=== PATIENT | male | born 1965 | race American Indian/Alaskan Native ===

== ENCOUNTER 2017-03-22 09:09 | Outpatient (CLI) | payer MEDICARE ==
--- NOTE | 2017-03-22 10:12 | XRay Report ---
Cervical spine: Anterior spinal artery compression syndrome: AP and lateral views demonstrate C3-4 and C4-5 cervical fusions with anterior stabilizing hardware and spacers at both locations. The hardware appears in good positions. There is normal alignment of the cervical bodies and good preservation of the interspaces. There is anterior spondylosis and at the inferior margins of C3-C5 as well as superior and inferior spondylosis at C6. No prevertebral swelling. Impression: Postoperative changes with no apparent complication. Diffuse spondylosis.
== END 2017-03-22 09:10 | disposition home or self-care (01) ==
LOC: XRAY 09:09
PROVIDERS: ATTEND Neurological Surgery
DX: M47.012 Anterior spinal artery compression syndromes, cervical region (principal); I10 Essential (primary) hypertension; Z87.891 Personal history of nicotine dependence
CPT/HCPCS: 72040

== ENCOUNTER 2017-06-11 14:14 | Emergency (ER) | payer MEDICARE ==
[2017-06-11 14:20] VITALS: BP 138/96
--- NOTE | 2017-06-11 15:03 | Emergency Department Report ---
- General Chief complaint: Skin Rash Stated complaint: BREAKING OUT Time Seen by Provider: 06/11/17 15:00 Source: patient Mode of arrival: Ambulatory Limitations: No Limitations - History of Present Illness Initial comments: 51 y/o M presents with a diffuse rash all over the body. Pt states that he noticed it 2 weeks ago, shortly after he was discharged from [facility]. Pt reports to itching and spreading of the rash. He denies any fever, chills, chest pain, SOB, or resp distress. No new soap, detergents, or deodrants per patient. Pt states that he was seen by his PCP about 1 week ago and they gave him a steriod cream that has not been helping. MD complaint: rash -: Gradual, week(s) (2) Location: generalized Severity: severe Severity scale (0 -10): 8 Quality: burning (iching) Improves with: topical medication (prednisone only help temporary) Worsens with: none (recent hospital stay) Associated symptoms: denies other symptoms Treatments Prior to Arrival: corticosteroid - Related Data Previous Rx's Medication Instructions Recorded Last Taken Type Acetaminophen [Acetaminophen TAB] 650 mg PO Q4H PRN #30 tablet 02/15/17 Unknown Rx AtorvaSTATin [Lipitor] 20 mg PO QHS tablet 02/15/17 Unknown Rx Bisacodyl [Dulcolax suppos] 10 mg LA QDAY PRN #30 supp.rect 02/15/17 Unknown Rx Cipro/Dexameth 0.3/0.1% [Ciprodex 4 drops AU BID bottle 02/15/17 Unknown Rx OTIC] Dexamethasone [Decadron] 6 mg IV Q6HR vial 02/15/17 Unknown Rx Dextrose 50% in Water [D50W (25GM) 50 ml IV PRN PRN #30 syringe 02/15/17 Unknown Rx Syringe] Enoxaparin [Lovenox] 40 mg SUB-Q QDAY syringe 02/15/17 Unknown Rx Insulin Detemir [Levemir] 100 units SUB-Q QHS units 02/15/17 Unknown Rx Lipase/Protease/Amylase [Pancreaze 1 each FEEDTUBE PRN PRN #30 capsule 02/15/[address] 10,500 Unit] Metoprolol [Lopressor TAB] 25 mg PO BID tablet 02/15/17 Unknown Rx Metoprolol [Lopressor TAB] 25 mg PO BID #60 tablet 02/15/17 Unknown Rx Ondansetron [Zofran INJ] 4 mg IV Q8H PRN #30 vial 02/15/17 Unknown Rx Prednisone [predniSONE 5 mg (6-Day 5 mg PO .TAPER #1 tab.ds.pk 02/15/17 Unknown Rx Pack, 21 Tabs)] Simple Syrup 15 ml FEEDTUBE PRN PRN #30 02/15/17 Unknown Rx oral.liqd Simple Syrup 30 ml FEEDTUBE PRN PRN #30 02/15/17 Unknown Rx oral.liqd Sodium Bicarbonate 325 mg FEEDTUBE PRN PRN #30 tablet 02/15/17 Unknown Rx amLODIPine [Norvasc] 10 mg PO DAILY tablet 02/15/17 Unknown Rx amLODIPine [Norvasc] 10 mg PO DAILY #30 tab 02/15/17 Unknown Rx chlorproMAZINE [Thorazine] 10 mg PO Q6H PRN #30 tablet 02/15/17 Unknown Rx hydrALAZINE [Apresoline INJ] 10 mg IV Q6HR PRN #30 vial 02/15/17 Unknown Rx oxyCODONE /ACETAMINOPHEN [Percocet 1 tab PO Q4H PRN #30 tablet 02/15/17 Unknown Rx 5/325 mg] oxyCODONE /ACETAMINOPHEN [Percocet 1 tab PO Q4HR #30 tab 02/15/17 Unknown Rx 5/325] tiZANidine [Zanaflex] 4 mg PO Q8H PRN #30 tablet 02/15/17 Unknown Rx Permethrin 5% [Acticin 5% CREAM] 1 applicatio TP ONCE #1 tube 06/11/17 Unknown Rx Allergies Allergy/AdvReac Type Severity Reaction Status Date / Time lisinopril Allergy Angioedema Verified 05/11/15 11:29 Abscess Boil HPI - HPI Chief Complaint: Skin Rash Stated Complaint: BREAKING OUT Duration: >1 Week Location: Lower Extremity History: No Fever, No Pain, No Purulent Drainage, No Numbness, No Foreign Body, No Previous History, No Insect Bite Home Medications: Previous Rx's Medication Instructions Recorded Last Taken Type Acetaminophen [Acetaminophen TAB] 650 mg PO Q4H PRN #30 tablet 02/15/17 Unknown Rx AtorvaSTATin [Lipitor] 20 mg PO QHS tablet 02/15/17 Unknown Rx Bisacodyl [Dulcolax suppos] 10 mg LA QDAY PRN #30 supp.rect 02/15/17 Unknown Rx Cipro/Dexameth 0.3/0.1% [Ciprodex 4 drops AU BID bottle 02/15/17 Unknown Rx OTIC] Dexamethasone [Decadron] 6 mg IV Q6HR vial 02/15/17 Unknown Rx Dextrose 50% in Water [D50W (25GM) 50 ml IV PRN PRN #30 syringe 02/15/17 Unknown Rx Syringe] Enoxaparin [Lovenox] 40 mg SUB-Q QDAY syringe 02/15/17 Unknown Rx Insulin Detemir [Levemir] 100 units SUB-Q QHS units 02/15/17 Unknown Rx Lipase/Protease/Amylase [Pancreaze 1 each FEEDTUBE PRN PRN #30 capsule 02/15/[address] 10,500 Unit] Metoprolol [Lopressor TAB] 25 mg PO BID tablet 02/15/17 Unknown Rx Metoprolol [Lopressor TAB] 25 mg PO BID #60 tablet 02/15/17 Unknown Rx Ondansetron [Zofran INJ] 4 mg IV Q8H PRN #30 vial 02/15/17 Unknown Rx Prednisone [predniSONE 5 mg (6-Day 5 mg PO .TAPER #1 tab.ds.pk 02/15/17 Unknown Rx Pack, 21 Tabs)] Simple Syrup 15 ml FEEDTUBE PRN PRN #30 02/15/17 Unknown Rx oral.liqd Simple Syrup 30 ml FEEDTUBE PRN PRN #30 02/15/17 Unknown Rx oral.liqd Sodium Bicarbonate 325 mg FEEDTUBE PRN PRN #30 tablet 02/15/17 Unknown Rx amLODIPine [Norvasc] 10 mg PO DAILY tablet 02/15/17 Unknown Rx amLODIPine [Norvasc] 10 mg PO DAILY #30 tab 02/15/17 Unknown Rx chlorproMAZINE [Thorazine] 10 mg PO Q6H PRN #30 tablet 02/15/17 Unknown Rx hydrALAZINE [Apresoline INJ] 10 mg IV Q6HR PRN #30 vial 02/15/17 Unknown Rx oxyCODONE /ACETAMINOPHEN [Percocet 1 tab PO Q4H PRN #30 tablet 02/15/17 Unknown Rx 5/325 mg] oxyCODONE /ACETAMINOPHEN [Percocet 1 tab PO Q4HR #30 tab 02/15/17 Unknown Rx 5/325] tiZANidine [Zanaflex] 4 mg PO Q8H PRN #30 tablet 02/15/17 Unknown Rx Permethrin 5% [Acticin 5% CREAM] 1 applicatio TP ONCE #1 tube 06/11/17 Unknown Rx Allergies/Adverse Reactions: Allergies Allergy/AdvReac Type Severity Reaction Status Date / Time lisinopril Allergy Angioedema Verified 05/11/15 11:29 ED Review of Systems ROS: Stated complaint: BREAKING OUT Other details as noted in HPI Constitutional: denies: chills, fever Eyes: denies: eye pain, eye discharge, vision change ENT: denies: ear pain, throat pain Respiratory: denies: cough, shortness of breath, wheezing Cardiovascular: denies: chest pain, palpitations Musculoskeletal: denies: back pain, joint swelling, arthralgia Skin: rash, pruritus Neurological: denies: headache, weakness, paresthesias Psychiatric: denies: anxiety, depression Hematological/Lymphatic: denies: easy bleeding, easy bruising ED Past Medical Hx - Past Medical History Previous Medical History?: Yes Hx Hypertension: Yes Hx CVA: Yes Hx Heart Attack/AMI: No Hx Diabetes: Yes Hx Renal Disease: Yes (CKD) Hx Seizures: No Hx Asthma: No Hx COPD: No Additional medical history: high cholesterol - Surgical History Past Surgical History?: Yes Additional Surgical History: "hernia in throat", sounds like the patient has a hiatal hernia from his description there - Social History Smoking Status: Never Smoker Substance Use Type: None - Medications Home Medications: Home Medications Medication Instructions Recorded Confirmed Last Taken Type Acetaminophen [Acetaminophen TAB] 650 mg PO Q4H PRN #30 tablet 02/15/17 Unknown Rx AtorvaSTATin [Lipitor] 20 mg PO QHS tablet 02/15/17 Unknown Rx Bisacodyl [Dulcolax suppos] 10 mg LA QDAY PRN #30 supp.rect 02/15/17 Unknown Rx Cipro/Dexameth 0.3/0.1% [Ciprodex 4 drops AU BID bottle 02/15/17 Unknown Rx OTIC] Dexamethasone [Decadron] 6 mg IV Q6HR vial 02/15/17 Unknown Rx Dextrose 50% in Water [D50W (25GM) 50 ml IV PRN PRN #30 syringe 02/15/17 Unknown Rx Syringe] Enoxaparin [Lovenox] 40 mg SUB-Q QDAY syringe 02/15/17 Unknown Rx Insulin Detemir [Levemir] 100 units SUB-Q QHS units 02/15/17 Unknown Rx Lipase/Protease/Amylase [Pancreaze 1 each FEEDTUBE PRN PRN #30 capsule 02/15/17 Unknown Rx 10,500 Unit] Metoprolol [Lopressor TAB] 25 mg PO BID tablet 02/15/17 Unknown Rx Metoprolol [Lopressor TAB] 25 mg PO BID #60 tablet 02/15/17 Unknown Rx Ondansetron [Zofran INJ] 4 mg IV Q8H PRN #30 vial 02/15/17 Unknown Rx Prednisone [predniSONE 5 mg (6-Day 5 mg PO .TAPER #1 tab.ds.pk 02/15/17 Unknown Rx Pack, 21 Tabs)] Simple Syrup 15 ml FEEDTUBE PRN PRN #30 02/15/17 Unknown Rx oral.liqd Simple Syrup 30 ml FEEDTUBE PRN PRN #30 02/15/17 Unknown Rx oral.liqd Sodium Bicarbonate 325 mg FEEDTUBE PRN PRN #30 tablet 02/15/17 Unknown Rx amLODIPine [Norvasc] 10 mg PO DAILY tablet 02/15/17 Unknown Rx amLODIPine [Norvasc] 10 mg PO DAILY #30 tab 02/15/17 Unknown Rx chlorproMAZINE [Thorazine] 10 mg PO Q6H PRN #30 tablet 02/15/17 Unknown Rx hydrALAZINE [Apresoline INJ] 10 mg IV Q6HR PRN #30 vial 02/15/17 Unknown Rx oxyCODONE /ACETAMINOPHEN [Percocet 1 tab PO Q4H PRN #30 tablet 02/15/17 Unknown Rx 5/325 mg] oxyCODONE /ACETAMINOPHEN [Percocet 1 tab PO Q4HR #30 tab 02/15/17 Unknown Rx 5/325] tiZANidine [Zanaflex] 4 mg PO Q8H PRN #30 tablet 02/15/17 Unknown Rx Permethrin 5% [Acticin 5% CREAM] 1 applicatio TP ONCE #1 tube 06/11/17 Unknown Rx ED Physical Exam - General Limitations: No Limitations General appearance: alert, in no apparent distress - Head Head exam: Present: atraumatic, normocephalic - Eye Eye exam: Present: normal appearance - ENT ENT exam: Present: mucous membranes moist - Respiratory Respiratory exam: Present: normal lung sounds bilaterally. Absent: respiratory distress, wheezes, rales, rhonchi, stridor - Cardiovascular Cardiovascular Exam: Present: regular rate, normal rhythm. Absent: systolic murmur, diastolic murmur, rubs, gallop - Skin Skin exam: Present: warm, dry, urticaria (hyperpigmented areas with a scabies like rash noted at b/l LE, hands, and at the waist line). Absent: rash ED Course Vital Signs 06/11/17 14:17 Temperature 98.4 F Pulse Rate 70 Blood Pressure 138/96 O2 Sat by Pulse 100 Oximetry ED Medical Decision Making - Medical Decision Making A/P: SCABIES 1. pt will be given permetherin at home cream for the symptoms 2. pt was treated last week by PCP stating that it may be contact/ allergic dermatitis with no relief of the symptoms 3. Pt's vitals are stable during ED stay, alert and oriented, no resp distress at this time. Pt was educated to wash out clothing/ bed sheets and told that this is contagious. Critical care attestation.: If time is entered above; I have spent that time in minutes in the direct care of this critically ill patient, excluding procedure time. ED Disposition Clinical Impression: Scabies Disposition: DC-01 TO HOME OR SELFCARE Is pt being admited?: No Does the pt Need Aspirin: No Condition: Stable Instructions: Scabies (ED) Additional Instructions: Please apply the cream exactly as directed on your prescription. Please follow- up with your PCP within 3-5 days. If any acute worsening such as SOB, worsening symptoms, chest tightness, or diff breathing please come back to the ER immediately. Prescriptions: Permethrin 5% [Acticin 5% CREAM] 1 applicatio TP ONCE #1 tube Referrals: GILMA BURNETT MD [Staff Physician] - 3-5 Days [facility] [Outside] - 3-5 Days [facility] [Outside] - 3-5 Days Forms: Work/School Release Form(ED)
== END 2017-06-11 16:04 | disposition home or self-care (01) ==
LOC: ED 14:14
DX: B86 Scabies (principal); Z86.73 Personal history of transient ischemic attack (TIA), and cerebral infarction without residual deficits; E11.22 Type 2 diabetes mellitus with diabetic chronic kidney disease; I12.0 Hypertensive chronic kidney disease with stage 5 chronic kidney disease or end stage renal disease; N18.6 End stage renal disease; E78.00 Pure hypercholesterolemia, unspecified; Z88.8 Allergy status to other drugs, medicaments and biological substances
CPT/HCPCS: 99282

== ENCOUNTER 2018-11-22 19:04 | Emergency (ER) | payer MEDICARE ==
--- NOTE | 2018-11-22 21:14 | Emergency Department Report ---
Blank Doc - Documentation Documentation: 53 y/o c/o of cough and coryza for the last few days. no nausea or vomiting. D enies SOB plan cxr
--- NOTE | 2018-11-22 23:08 | XRay Report ---
FINAL REPORT PROCEDURE: Chest. TECHNIQUE: PA and lateral views. HISTORY: Cough and chest ache. COMPARISON: No prior studies are available for comparison. FINDINGS: The heart size is normal. There is mild tortuosity and calcification in the thoracic aorta. The lungs are clear and well expanded. There are no pleural effusions. The soft tissues and regional skeleton are unremarkable. IMPRESSION: No evidence of acute disease.
--- NOTE | 2018-11-23 01:11 | Emergency Department Report ---
- General Chief Complaint: Upper Respiratory Infection Stated Complaint: SORE ALL OVER Time Seen by Provider: 11/22/18 21:11 Source: patient Mode of arrival: Ambulatory Limitations: No Limitations - History of Present Illness Initial Comments: Patient is 53 years old male with history of diabetes. Patient presented to the ER complaining of cough, nonproductive. Patient stated that he been having generalized body ache. Patient denied any chest pain or shortness of breath. MD Complaint: fever, cough, nasal congestion -: days(s) (2) Severity: moderate Context: sick contacts - Related Data Previous Rx's Medication Instructions Recorded Last Taken Type Acetaminophen [Acetaminophen TAB] 650 mg PO Q4H PRN #30 tablet 02/15/17 Unknown Rx AtorvaSTATin [Lipitor] 20 mg PO QHS tablet 02/15/17 Unknown Rx Bisacodyl [Dulcolax suppos] 10 mg ME QDAY PRN #30 supp.rect 02/15/17 Unknown Rx Cipro/Dexameth 0.3/0.1% [Ciprodex 4 drops AU BID bottle 02/15/17 Unknown Rx OTIC] Detemir (Nf) [Levemir (Nf)] 100 units SUB-Q QHS units 02/15/17 Unknown Rx Dexamethasone [Decadron] 6 mg IV Q6HR vial 02/15/17 Unknown Rx Dextrose 50% in Water [D50W (25GM) 50 ml IV PRN PRN #30 syringe 02/15/17 Unknown Rx Syringe] Enoxaparin [Lovenox] 40 mg SUB-Q QDAY syringe 02/15/17 Unknown Rx Lipase/Protease/Amylase [Pancreaze 1 each FEEDTUBE PRN PRN #30 capsule 02/15/[address] 10,500 Unit] Metoprolol [Lopressor TAB] 25 mg PO BID tablet 02/15/17 Unknown Rx Metoprolol [Lopressor TAB] 25 mg PO BID #60 tablet 02/15/17 Unknown Rx Ondansetron [Zofran INJ] 4 mg IV Q8H PRN #30 vial 02/15/17 Unknown Rx Prednisone [predniSONE 5 mg (6-Day 5 mg PO .TAPER #1 tab.ds.pk 02/15/17 Unknown Rx Pack, 21 Tabs)] Simple Syrup 15 ml FEEDTUBE PRN PRN #30 02/15/17 Unknown Rx oral.liqd Simple Syrup 30 ml FEEDTUBE PRN PRN #30 02/15/17 Unknown Rx oral.liqd Sodium Bicarbonate 325 mg FEEDTUBE PRN PRN #30 tablet 02/15/17 Unknown Rx amLODIPine [Norvasc] 10 mg PO DAILY tablet 02/15/17 Unknown Rx amLODIPine [Norvasc] 10 mg PO DAILY #30 tab 02/15/17 Unknown Rx chlorproMAZINE [Thorazine] 10 mg PO Q6H PRN #30 tablet 02/15/17 Unknown Rx hydrALAZINE [Apresoline INJ] 10 mg IV Q6HR PRN #30 vial 02/15/17 Unknown Rx oxyCODONE /ACETAMINOPHEN [Percocet 1 tab PO Q4H PRN #30 tablet 02/15/17 Unknown Rx 5/325 mg] oxyCODONE /ACETAMINOPHEN [Percocet 1 tab PO Q4HR #30 tab 02/15/17 Unknown Rx 5/325] tiZANidine [Zanaflex] 4 mg PO Q8H PRN #30 tablet 02/15/17 Unknown Rx Permethrin 5% [Acticin 5% CREAM] 1 applicatio TP ONCE #1 tube 06/11/17 Unknown Rx Allergies Allergy/AdvReac Type Severity Reaction Status Date / Time lisinopril Allergy Angioedema Verified 05/11/15 11:29 Penicillins Allergy Hives Verified 11/22/18 21:14 ED Review of Systems ROS: Stated complaint: SORE ALL OVER Other details as noted in HPI Comment: All other systems reviewed and negative Constitutional: denies: chills, fever Respiratory: cough. denies: orthopnea, shortness of breath, SOB with exertion, wheezing Cardiovascular: denies: chest pain Gastrointestinal: denies: abdominal pain, nausea, vomiting, diarrhea, constipation, hematemesis, melena, hematochezia Musculoskeletal: denies: back pain Neurological: denies: headache, weakness, numbness, paresthesias, confusion, abnormal gait ED Past Medical Hx - Past Medical History Hx Hypertension: Yes Hx CVA: Yes Hx Heart Attack/AMI: No Hx Diabetes: Yes Hx Renal Disease: Yes (CKD) Hx Seizures: No Hx Asthma: No Hx COPD: No Additional medical history: high cholesterol - Surgical History Additional Surgical History: "hernia in throat", sounds like the patient has a hiatal hernia from his description there - Social History Smoking Status: Never Smoker Substance Use Type: None - Medications Home Medications: Home Medications Medication Instructions Recorded Confirmed Last Taken Type Acetaminophen [Acetaminophen TAB] 650 mg PO Q4H PRN #30 tablet 02/15/17 Unknown Rx AtorvaSTATin [Lipitor] 20 mg PO QHS tablet 02/15/17 Unknown Rx Bisacodyl [Dulcolax suppos] 10 mg ME QDAY PRN #30 supp.rect 02/15/17 Unknown Rx Cipro/Dexameth 0.3/0.1% [Ciprodex 4 drops AU BID bottle 02/15/17 Unknown Rx OTIC] Detemir (Nf) [Levemir (Nf)] 100 units SUB-Q QHS units 02/15/17 Unknown Rx Dexamethasone [Decadron] 6 mg IV Q6HR vial 02/15/17 Unknown Rx Dextrose 50% in Water [D50W (25GM) 50 ml IV PRN PRN #30 syringe 02/15/17 Unknown Rx Syringe] Enoxaparin [Lovenox] 40 mg SUB-Q QDAY syringe 02/15/17 Unknown Rx Lipase/Protease/Amylase [Pancreaze 1 each FEEDTUBE PRN PRN #30 capsule 02/15/[address] 10,500 Unit] Metoprolol [Lopressor TAB] 25 mg PO BID tablet 02/15/17 Unknown Rx Metoprolol [Lopressor TAB] 25 mg PO BID #60 tablet 02/15/17 Unknown Rx Ondansetron [Zofran INJ] 4 mg IV Q8H PRN #30 vial 02/15/17 Unknown Rx Prednisone [predniSONE 5 mg (6-Day 5 mg PO .TAPER #1 tab.ds.pk 02/15/17 Unknown Rx Pack, 21 Tabs)] Simple Syrup 15 ml FEEDTUBE PRN PRN #30 02/15/17 Unknown Rx oral.liqd Simple Syrup 30 ml FEEDTUBE PRN PRN #30 02/15/17 Unknown Rx oral.liqd Sodium Bicarbonate 325 mg FEEDTUBE PRN PRN #30 tablet 02/15/17 Unknown Rx amLODIPine [Norvasc] 10 mg PO DAILY tablet 02/15/17 Unknown Rx amLODIPine [Norvasc] 10 mg PO DAILY #30 tab 02/15/17 Unknown Rx chlorproMAZINE [Thorazine] 10 mg PO Q6H PRN #30 tablet 02/15/17 Unknown Rx hydrALAZINE [Apresoline INJ] 10 mg IV Q6HR PRN #30 vial 02/15/17 Unknown Rx oxyCODONE /ACETAMINOPHEN [Percocet 1 tab PO Q4H PRN #30 tablet 02/15/17 Unknown Rx 5/325 mg] oxyCODONE /ACETAMINOPHEN [Percocet 1 tab PO Q4HR #30 tab 02/15/17 Unknown Rx 5/325] tiZANidine [Zanaflex] 4 mg PO Q8H PRN #30 tablet 02/15/17 Unknown Rx Permethrin 5% [Acticin 5% CREAM] 1 applicatio TP ONCE #1 tube 06/11/17 Unknown Rx ED Physical Exam - General Limitations: No Limitations General appearance: alert, in no apparent distress - Head Head exam: Present: atraumatic, normocephalic, normal inspection - Eye Eye exam: Present: normal appearance, PERRL - ENT ENT exam: Present: normal exam, normal orophraynx, mucous membranes moist - Neck Neck exam: Present: normal inspection, full ROM. Absent: tenderness, men ingismus, lymphadenopathy, thyromegaly - Respiratory Respiratory exam: Present: normal lung sounds bilaterally. Absent: respiratory distress, wheezes, rales, rhonchi, chest wall tenderness, accessory muscle use, decreased breath sounds, prolonged expiratory - Cardiovascular Cardiovascular Exam: Present: regular rate, normal rhythm, normal heart sounds - GI/Abdominal GI/Abdominal exam: Present: soft, normal bowel sounds. Absent: distended, tenderness, guarding, rebound, rigid, organomegaly, mass, bruit, pulsatile mass, hernia - Extremities Exam Extremities exam: Present: normal inspection, full ROM, normal capillary refill. Absent: pedal edema, calf tenderness - Back Exam Back exam: Present: normal inspection, full ROM. Absent: tenderness, CVA tenderness (R), CVA tenderness (L), muscle spasm, paraspinal tenderness, vertebral tenderness - Neurological Exam Neurological exam: Present: alert, oriented X3, CN II-XII intact, normal gait, reflexes normal - Skin Skin exam: Present: warm, intact, normal color ED Course Vital Signs 11/22/18 11/22/18 20:10 21:14 Temperature 97.9 F 98.3 F Pulse Rate 80 79 Respiratory 18 20 Rate Blood Pressure 143/92 Blood Pressure 143/92 [Right] O2 Sat by Pulse 99 100 Oximetry ED Medical Decision Making - Lab Data Result diagrams: 11/23/18 01:21 11/23/18 01:21 - Radiology Data Radiology results: report reviewed Referring Physician: TAMIE PADILLA Patient Name: ELLIOTT WALTERS Date of : 1965 Sex: Male Report Date: 2018-11-22 Report Status: Finalized Findings [facility] [address] [place] [address] XRay Report Signed Patient: ELLIOTT WALTERS MR#: [id number] : 1965 Acct:[id number] Age/Sex: 53 / M ADM Date: 11/22/18 Loc: ED Attending Dr: Ordering Physician: ISAEL ASHTON Date of Service: 11/22/18 Procedure(s): XR chest routine 2V Accession Number(s): [id number] cc: ISAEL ASHTON Fluoro Time In Minutes: FINAL REPORT PROCEDURE: Chest. TECHNIQUE: PA and lateral views. HISTORY: Cough and chest ache. COMPARISON: No prior studies are available for comparison. FINDINGS: The heart size is normal. There is mild tortuosity and calcification in the thoracic aorta. The lungs are clear and well expanded. There are no pleural effusions. The soft tissues and regional ske leton are unremarkable. IMPRESSION: No evidence of acute disease. Transcribed By: MRM Dictated By: JAIME MOTA MD Electronically Authenticated By: JAIME MOTA MD Signed Date/Time: 11/22/182307 DD/ 05 TD/TT: 11/22/182305 - Medical Decision Making Patient is 53 years old male with history of diabetes. Patient presented to the ER complaining of cough, nonproductive. Patient stated that he been having generalized body ache. Patient denied any chest pain or shortness of breath. Chest x-ray is negative for acute finding. Labs reviewed and is unremarkable except for his chronic kidney disease with a creatinine of 2.1. Previous creatinine 1 year ago was 2. I believe patient's symptoms most likely acute bronchitis. I advised the patient to follow up with his primary care physician and to return to the ER if his symptoms are not improved. Critical care attestation.: If time is entered above; I have spent that time in minutes in the direct care of this critically ill patient, excluding procedure time. ED Disposition Clinical Impression: Acute bronchitis, Viral syndrome Disposition: TO HOME OR SELFCARE Is pt being admited?: No Condition: Stable Instructions: Acute Bronchitis (ED), Viral Syndrome (ED) Referrals: PRIMARY CARE, [Referring] - 3-5 Days
[2018-11-23] MEDS ORDERED: TORADOL IM ONE (01:17)
[2018-11-23 01:44] LABS: Basophils % (Auto) 0.6 % (0.0-1.8); Eosinophils # (Auto) 0.2 K/mm3 (0.0-0.4); Eosinophils % (Auto) 3.7 % (0.0-4.3); Hematocrit 41.2 % (35.5-45.6); Hemoglobin 13.7 gm/dl (11.8-15.2); Lymphocytes # (Auto) 2.6 K/mm3 (1.2-5.4); Lymphocytes % (Auto) 39.4 % (13.4-35.0); Mean Corpuscular HGB Conc 33 % (32-34); Mean Corpuscular Volume 88 fl (84-94); Monocytes # (Auto) 0.5 K/mm3 (0.0-0.8); Monocytes % (Auto) 7.7 % (0.0-7.3); Platelet Count 279 K/mm3 (140-440); Red Blood Count 4.67 M/mm3 (3.65-5.03); Red Cell Distribution Width 15.1 % (13.2-15.2)
[2018-11-23 01:53] LABS: Albumin 4.2 g/dL (3.9-5); Calcium 9.6 mg/dL (8.4-10.2)
[2018-11-23 02:44] VITALS: BP 155/103
== END 2018-11-23 03:12 | disposition home or self-care (01) ==
LOC: ED 19:04
DX: J20.9 Acute bronchitis, unspecified (principal); B34.9 Viral infection, unspecified; E11.22 Type 2 diabetes mellitus with diabetic chronic kidney disease; I12.9 Hypertensive chronic kidney disease with stage 1 through stage 4 chronic kidney disease, or unspecified chronic kidney disease; N18.9 Chronic kidney disease, unspecified; E78.00 Pure hypercholesterolemia, unspecified; Z88.8 Allergy status to other drugs, medicaments and biological substances; Z88.0 Allergy status to penicillin
CPT/HCPCS: 36415; 71046; 80053; 85025; 96372; 99284; J1885

== ENCOUNTER 2020-05-31 12:59 | Inpatient (IN) | payer MEDICARE ==
--- NOTE | 2020-05-31 14:03 | Emergency Department Report ---
ED General Adult HPI - General Chief complaint: Dyspnea/Respdistress Stated complaint: ARNOLDO PUI?: Yes Time Seen by Provider: 05/31/20 13:51 Source: patient, EMS ( EMS documentation not available at time of chart dictation ), RN notes reviewed, old records reviewed Mode of arrival: Wheelchair Limitations: Physical Limitation - History of Present Illness Initial comments: The patient was evaluated in the emergency department for symptoms described in the history of present illness. He/she was evaluated in the context of the [facility] COVID-19 pandemic, which necessitated consideration that the patient might be at risk for infection with the virus that causes COVID-19. Institutional protocols and algorithms that pertain to the evaluation of patients at risk for COVID-19 are in a state of rapid change based on information released by regulatory bodies including the CDC and federal and state organizations. These policies and algorithms were followed during the patient's care in the emergency department. Please note that these policies, procedures and recommendations changed on a rapid basis. During the entire history and physical, I had on complete personal protective equipment. Primary care doctor, Dr. Weldon Past medical history: Obesity, diabetes, renal insufficiency, stroke The patient is a 54-year-old gentleman presenting to the ER today with a complaint of painless cough, shortness of breath, malaise and fatigue. Patient thinks he may have had positive contacts with COVID-19. He denies DVT and pulmonary embolism risk factors. He endorses shortness of breath. He denies physical pain He denies headache, neck pain, chest pain, abdominal pain, irritative and urinary symptoms. His symptoms are constant for the past few days, they worsen with physical exertion, and they decreased with rest. -: Gradual, days(s) Consistency: intermittent Improves with: rest Worsens with: movement - Related Data Previous Rx's Medication Instructions Recorded Last Taken Type Acetaminophen [Acetaminophen TAB] 650 mg PO Q4H PRN #30 tablet 02/15/17 Unknown Rx AtorvaSTATin [Lipitor] 20 mg PO QHS tablet 02/15/17 Unknown Rx Cipro/Dexameth 0.3/0.1% [Ciprodex 4 drops AU BID bottle 02/15/17 Unknown Rx OTIC] Detemir (Nf) [Levemir (Nf)] 100 units SUB-Q QHS units 02/15/17 Unknown Rx Dextrose 50% in Water [D50W (25GM) 50 ml IV PRN PRN #30 syringe 02/15/17 Unknown Rx Syringe] Enoxaparin 40 mg SUB-Q QDAY syringe 02/15/17 Unknown Rx Lipase/Protease/Amylase [Pancreaze 1 each FEEDTUBE PRN PRN #30 capsule 02/15/[address] 10,500 Unit] Metoprolol [Lopressor TAB] 25 mg PO BID tablet 02/15/17 Unknown Rx Metoprolol [Lopressor TAB] 25 mg PO BID #60 tablet 02/15/17 Unknown Rx Ondansetron [Zofran INJ] 4 mg IV Q8H PRN #30 vial 02/15/17 Unknown Rx Prednisone [predniSONE 5 mg (6-Day 5 mg PO .TAPER #1 tab.ds.pk 02/15/17 Unknown Rx Pack, 21 Tabs)] Simple Syrup 15 ml FEEDTUBE PRN PRN #30 02/15/17 Unknown Rx oral.liqd Simple Syrup 30 ml FEEDTUBE PRN PRN #30 02/15/17 Unknown Rx oral.liqd Sodium Bicarbonate 325 mg FEEDTUBE PRN PRN #30 tablet 02/15/17 Unknown Rx amLODIPine 10 mg PO DAILY tablet 02/15/17 Unknown Rx amLODIPine [Norvasc] 10 mg PO DAILY #30 tab 02/15/17 Unknown Rx bisacodyL [Dulcolax suppos] 10 mg NJ QDAY PRN #30 supp.rect 02/15/17 Unknown Rx chlorproMAZINE [Thorazine] 10 mg PO Q6H PRN #30 tablet 02/15/17 Unknown Rx dexAMETHasone [Decadron] 6 mg IV Q6HR vial 02/15/17 Unknown Rx hydrALAZINE [Apresoline INJ] 10 mg IV Q6HR PRN #30 vial 02/15/17 Unknown Rx oxyCODONE /ACETAMINOPHEN [Percocet 1 tab PO Q4H PRN #30 tablet 02/15/17 Unknown Rx 5/325 mg] oxyCODONE /ACETAMINOPHEN [Percocet 1 tab PO Q4HR #30 tab 02/15/17 Unknown Rx 5/325] tiZANidine [Zanaflex 4mg TAB] 4 mg PO Q8H PRN #30 tablet 02/15/17 Unknown Rx Permethrin 5% [Acticin 5% CREAM] 1 applicatio TP ONCE #1 tube 06/11/17 Unknown Rx Azithromycin [Zithromax Z-BENJIE] 250 mg PO DAILY 1 Days tab 11/23/18 Unknown Rx Ondansetron [Zofran Odt] 4 mg PO Q8HR PRN #14 tab.rapdis 11/23/18 Unknown Rx traMADoL [Ultram 50 MG tab] 50 mg PO Q4HR PRN #14 tablet 11/23/18 Unknown Rx Allergies Allergy/AdvReac Type Severity Reaction Status Date / Time lisinopril Allergy Angioedema Verified 05/31/20 13:03 Penicillins Allergy Hives Verified 05/31/20 13:03 ED Review of Systems ROS: Stated complaint: ARNOLDO Other details as noted in HPI Constitutional: malaise, weakness Eyes: denies: vision change ENT: congestion Respiratory: cough, shortness of breath, SOB with exertion, SOB at rest Cardiovascular: denies: chest pain Gastrointestinal: denies: abdominal pain Genitourinary: denies: dysuria Musculoskeletal: arthralgia, myalgia Skin: denies: lesions Neurological: weakness ED Past Medical Hx - Past Medical History Hx Hypertension: Yes Hx CVA: Yes Hx Heart Attack/AMI: No Hx Diabetes: Yes Hx Renal Disease: Yes (CKD) Hx Seizures: No Hx Asthma: No Hx COPD: No Additional medical history: high cholesterol - Surgical History Additional Surgical History: "hernia in throat", sounds like the patient has a hiatal hernia from his description there - Social History Smoking Status: Never Smoker Substance Use Type: None - Medications Home Medications: Home Medications Medication Instructions Recorded Confirmed Last Taken Type Acetaminophen [Acetaminophen TAB] 650 mg PO Q4H PRN #30 tablet 02/15/17 Unknown Rx AtorvaSTATin [Lipitor] 20 mg PO QHS tablet 02/15/17 Unknown Rx Cipro/Dexameth 0.3/0.1% [Ciprodex 4 drops AU BID bottle 02/15/17 Unknown Rx OTIC] Detemir (Nf) [Levemir (Nf)] 100 units SUB-Q QHS units 02/15/17 Unknown Rx Dextrose 50% in Water [D50W (25GM) 50 ml IV PRN PRN #30 syringe 02/15/17 Unknown Rx Syringe] Enoxaparin 40 mg SUB-Q QDAY syringe 02/15/17 Unknown Rx Lipase/Protease/Amylase [Pancreaze 1 each FEEDTUBE PRN PRN #30 capsule 02/15/17 Unknown Rx 10,500 Unit] Metoprolol [Lopressor TAB] 25 mg PO BID tablet 02/15/17 Unknown Rx Metoprolol [Lopressor TAB] 25 mg PO BID #60 tablet 02/15/17 Unknown Rx Ondansetron [Zofran INJ] 4 mg IV Q8H PRN #30 vial 02/15/17 Unknown Rx Prednisone [predniSONE 5 mg (6-Day 5 mg PO .TAPER #1 tab.ds.pk 02/15/17 Unknown Rx Pack, 21 Tabs)] Simple Syrup 15 ml FEEDTUBE PRN PRN #30 02/15/17 Unknown Rx oral.liqd Simple Syrup 30 ml FEEDTUBE PRN PRN #30 02/15/17 Unknown Rx oral.liqd Sodium Bicarbonate 325 mg FEEDTUBE PRN PRN #30 tablet 02/15/17 Unknown Rx amLODIPine 10 mg PO DAILY tablet 02/15/17 Unknown Rx amLODIPine [Norvasc] 10 mg PO DAILY #30 tab 02/15/17 Unknown Rx bisacodyL [Dulcolax suppos] 10 mg NJ QDAY PRN #30 supp.rect 02/15/17 Unknown Rx chlorproMAZINE [Thorazine] 10 mg PO Q6H PRN #30 tablet 02/15/17 Unknown Rx dexAMETHasone [Decadron] 6 mg IV Q6HR vial 02/15/17 Unknown Rx hydrALAZINE [Apresoline INJ] 10 mg IV Q6HR PRN #30 vial 02/15/17 Unknown Rx oxyCODONE /ACETAMINOPHEN [Percocet 1 tab PO Q4H PRN #30 tablet 02/15/17 Unknown Rx 5/325 mg] oxyCODONE /ACETAMINOPHEN [Percocet 1 tab PO Q4HR #30 tab 02/15/17 Unknown Rx 5/325] tiZANidine [Zanaflex 4mg TAB] 4 mg PO Q8H PRN #30 tablet 02/15/17 Unknown Rx Permethrin 5% [Acticin 5% CREAM] 1 applicatio TP ONCE #1 tube 06/11/17 Unknown Rx Azithromycin [Zithromax Z-BENJIE] 250 mg PO DAILY 1 Days tab 11/23/18 Unknown Rx Ondansetron [Zofran Odt] 4 mg PO Q8HR PRN #14 tab.rapdis 11/23/18 Unknown Rx traMADoL [Ultram 50 MG tab] 50 mg PO Q4HR PRN #14 tablet 11/23/18 Unknown Rx ED Physical Exam - General Limitations: Physical Limitation General appearance: alert, in no apparent distress - Head Head exam: Present: atraumatic, normocephalic - Eye Eye exam: Present: normal appearance, EOMI. Absent: nystagmus - ENT ENT exam: Present: normal exam, normal orophraynx, mucous membranes moist, normal external ear exam - Neck Neck exam: Present: normal inspection, full ROM. Absent: tenderness, meningismus - Respiratory Respiratory exam: Present: respiratory distress, accessory muscle use. Absent: rales, stridor - Cardiovascular Cardiovascular Exam: Present: regular rate, normal rhythm, normal heart sounds. Absent: bradycardia, tachycardia, irregular rhythm, systolic murmur, diastolic m urmur, rubs, gallop - GI/Abdominal GI/Abdominal exam: Present: soft. Absent: distended, tenderness, guarding, rebound, rigid, pulsatile mass - Rectal Rectal exam: Present: deferred - Extremities Exam Extremities exam: Present: normal inspection, full ROM, other (2+ pulses noted in the bilateral upper and lower extremities. There is no palpable cord. negative Homans sign. Muscular compartments are soft. The pelvis is stable.). Absent: calf tenderness - Back Exam Back exam: Present: normal inspection, full ROM. Absent: tenderness, CVA tenderness (R), CVA tenderness (L), paraspinal tenderness, vertebral tenderness - Neurological Exam Neurological exam: Present: alert, other (No facial droop. Tongue midline. Extraocular movements intact bilaterally. Facial sensation intact to light touch in V1, V2, V3 distribution bilaterally. 5 and a 5 strength in 4 extremities. Sensation intact to light touch in 4 extremities.) - Psychiatric Psychiatric exam: Present: anxious - Skin Skin exam: Present: warm, dry, intact, normal color. Absent: rash ED Course Vital Signs 05/31/20 13:07 Temperature 99.4 F Pulse Rate 93 H Respiratory 24 Rate Blood Pressure 134/75 O2 Sat by Pulse 88 Oximetry ED Medical Decision Making - Lab Data Result diagrams: 05/31/20 15:23 05/31/20 15:23 Vital Signs 05/31/20 13:07 Temperature 99.4 F Pulse Rate 93 H Respiratory 24 Rate Blood Pressure 134/75 O2 Sat by Pulse 88 Oximetry Lab Results 05/31/20 05/31/20 05/31/20 Range/Units 15:23 15:23 15:23 WBC 8.1 (4.5-11.0) K/mm3 RBC 4.73 (3.65-5.03) M/mm3 Hgb 14.0 (11.8-15.2) gm/dl Hct 40.9 (35.5-45.6) % MCV 86 (84-94) fl MCH 30 (28-32) pg MCHC 34 (32-34) % RDW 15.7 H (13.2-15.2) % Plt Count 240 (140-440) K/mm3 Lymph % (Auto) 12.9 L (13.4-35.0) % Blanco % (Auto) 4.9 (0.0-7.3) % Eos % (Auto) 0.0 (0.0-4.3) % Baso % (Auto) 0.5 (0.0-1.8) % Lymph # 1.0 L (1.2-5.4) K/mm3 Blanco # 0.4 (0.0-0.8) K/mm3 Eos # 0.0 (0.0-0.4) K/mm3 Baso # 0.0 (0.0-0.1) K/mm3 Seg Neutrophils % 81.7 H (40.0-70.0) % Seg Neutrophils # 6.6 (1.8-7.7) K/mm3 PT (12.2-14.9) Sec. INR (0.87-1.13) Sodium (137-145) mmol/L Potassium (3.6-5.0) mmol/L Chloride (98-107) mmol/L Carbon Dioxide (22-30) mmol/L Anion Gap mmol/L BUN (9-20) mg/dL Creatinine (0.8-1.3) mg/dL Estimated GFR ml/min BUN/Creatinine Ratio % Glucose 280 H (75-100) mg/dL Calcium (8.4-10.2) mg/dL Magnesium 2.20 (1.7-2.3) mg/dL Total Bilirubin (0.1-1.2) mg/dL AST (5-40) units/L ALT (7-56) units/L Alkaline Phosphatase (35-129) units/L Lactate Dehydrogenase 392 H (91-180) units/L Total Creatine Kinase 325 H (55-170) units/L Troponin T (0.00-0.029) ng/mL C-Reactive Protein 14.30 H (0.00-1.30) mg/dL Total Protein (6.3-8.2) g/dL Albumin (3.9-5) g/dL Albumin/Globulin Ratio % 05/31/20 05/31/20 Range/Units 15:23 15:23 WBC (4.5-11.0) K/mm3 RBC (3.65-5.03) M/mm3 Hgb (11.8-15.2) gm/dl Hct (35.5-45.6) % MCV (84-94) fl MCH (28-32) pg MCHC (32-34) % RDW (13.2-15.2) % Plt Count (140-440) K/mm3 Lymph % (Auto) (13.4-35.0) % Blanco % (Auto) (0.0-7.3) % Eos % (Auto) (0.0-4.3) % Baso % (Auto) (0.0-1.8) % Lymph # (1.2-5.4) K/mm3 Blanco # (0.0-0.8) K/mm3 Eos # (0.0-0.4) K/mm3 Baso # (0.0-0.1) K/mm3 Seg Neutrophils % (40.0-70.0) % Seg Neutrophils # (1.8-7.7) K/mm3 PT 11.5 L (12.2-14.9) Sec. INR 0.83 L (0.87-1.13) Sodium 134 L (137-145) mmol/L Potassium 4.6 (3.6-5.0) mmol/L Chloride 97.2 L (98-107) mmol/L Carbon Dioxide 22 (22-30) mmol/L Anion Gap 19 mmol/L BUN 28 H (9-20) mg/dL Creatinine 3.0 H (0.8-1.3) mg/dL Estimated GFR 26 ml/min BUN/Creatinine Ratio 9 % Glucose 279 H (75-100) mg/dL Calcium 9.1 (8.4-10.2) mg/dL Magnesium (1.7-2.3) mg/dL Total Bilirubin 0.40 (0.1-1.2) mg/dL AST 35 (5-40) units/L ALT 33 (7-56) units/L Alkaline Phosphatase 71 (35-129) units/L Lactate Dehydrogenase (91-180) units/L Total Creatine Kinase (55-170) units/L Troponin T 0.021 (0.00-0.029) ng/mL C-Reactive Protein (0.00-1.30) mg/dL Total Protein 8.0 (6.3-8.2) g/dL Albumin 3.3 L (3.9-5) g/dL Albumin/Globulin Ratio 0.7 % - EKG Data -: EKG Interpreted by Me EKG shows normal: sinus rhythm Rate: normal - EKG Data 05/31/20 15:47 Sinus rhythm, 95 bpm, left axis deviation, left anterior fascicular block, QTC 428 ms, motion artifact, the EKG is not a STEMI - Radiology Data Radiology results: report reviewed, image reviewed interpreted by me: X-ray of the chest, interpreted by myself: No pneumothorax. Multilobar infiltrates. Unremarkable bony anatomy. Print Report Referring Physician: JAIME SOTO Patient Name: ELLIOTT WALTERS Date of : 1965 Sex: Male Report Date: 2020-05-31 Report Status: Finalized Findings [address] [address] XRay Report Signed Patient: ELLIOTT WALTERS MR#: [id number] : 1965 Acct:[id number] Age/Sex: 54 / M ADM Date: 05/31/20 Loc: ED Attending Dr: Ordering Physician: JAIME SOTO MD Date of Service: 05/31/20 Procedure(s): XR chest 1V ap Accession Number(s): [id number] cc: JAIME SOTO MD Fluoro Time In Minutes: CHEST 1 VIEW INDICATION: dyspnea hypoxia. COMPARISON: 11/22/2018 F INDINGS: Support devices: None. Heart: Normal. Lungs/Pleura: There are patchy predominantly peripheral bilateral pulmonary opacities greatest in the mid and lower lungs. No significant effusion, no pneumothorax. IMPRESSION: 1. Patchy bilateral pulmonary opacities are likely infectious in etiology. Signer Name: Bc Champion MD Signed: 05/31/2020 3:56 PM Workstation Name: [id number] Transcribed By: HU Dictated By: Bc Champion MD Electronically Authenticated By: Bc Champion MD Signed Date/Time: 05/31/201555 DD/ 155 - Medical Decision Making Differential diagnosis, including not limited to: Multi lobar pneumonia, bacterial versus viral, COVID-19, hypoxic respiratory failure Assessment and plan: 54-year-old gentleman with probable COVID pneumonia. He is afebrile with reassuring vital signs except for respiratory rate and hypoxia. He had a trial of 5 to 6 L of supplemental oxygen but was still hypoxic. He will therefore be started on high flow nasal cannula. He denies DVT and pulmonary embolism risk factors. He tells me that he has no allergies to medications. His x-rays suggest multilobar pneumonia. Start steroids, ceftriaxone, and azithromycin. Initiate high flow nasal cannula oxygen therapy. As a third generation cephalosporin, ceftriaxone is structurally dissimilar to penicillin, and is very statistically unlikely to cause a true allergic/anaphylactoid reaction. The patient is amenable to hospitalization. Hospital physician, Dr. Marianne Walton, will admit the patient. He indicates he will follow-up on the laboratory studies. Critical Care Time: Yes Critical care time in (mins) excluding proc time.: 35 Critical care attestation.: If time is entered above; I have spent that time in minutes in the direct care of this critically ill patient, excluding procedure time. ED Disposition Clinical Impression: Acute respiratory failure with hypoxia, Suspected COVID-19 virus infection Disposition: OP ADMIT IP TO THIS HOSP Is pt being admited?: Yes Does the pt Need Aspirin: No Condition: Serious
[2020-05-31] MEDS ORDERED: dexAMETHasone 4 MG/ML VIAL IV ONE (15:35)
[2020-05-31] MEDS ORDERED: AZITHROMYCIN 500 MG in SODIUM CHLORIDE 0.9% 250ML 250 ML IV ONE (15:37)
[2020-05-31] MEDS ORDERED: cefTRIAXone/NS 1 GM/50 ML 1 GM/50 ML BAG IV ONE ×2 (15:37→16:47)
[2020-05-31] MEDS ORDERED: NALOXONE 0.4 MG/1 ML INJ IV PRN (15:49)
[2020-05-31] MEDS ORDERED: ALBUTEROL 2.5 MG/3 ML NEBU IH PRN (15:49)
--- NOTE | 2020-05-31 15:49 | History and Physical Report ---
History of Present Illness Date of examination: 05/31/20 Date of admission: 05/31/20 Chief complaint: Shortness of breath History of present illness: Patient is a 54-year-old male with past medical history of hypertension who presents to the ED with complaint of shortness of breath ongoing for the past few days worse today with associated nonproductive cough malaise and fatigue. Patient thinks that he may have had positive contact with COVID-19 person. On arrival to the ED he was noted to be hypoxic with oxygen saturation in the low 80s. He reports worsening exertional dyspnea. He denies any chest pain nausea vomiting but reports diarrhea. Were asked to admit the patient for further evaluation as x-ray shows bilateral patchy infiltrates. On evaluation of the patient is very lethargic. He reports compliance with all his medications and is followed by Dr. Calin Alicia. Past History Past Medical History: hypertension Past Surgical History: No surgical history Social history: no significant social history, full code Family history: no significant family history Medications and Allergies Allergies Allergy/AdvReac Type Severity Reaction Status Date / Time lisinopril Allergy Angioedema Verified 05/31/20 13:03 Penicillins Allergy Hives Verified 05/31/20 13:03 Home Medications Medication Instructions Recorded Confirmed Last Taken Type Acetaminophen [Acetaminophen TAB] 650 mg PO Q4H PRN #30 tablet 02/15/17 Unknown Rx AtorvaSTATin [Lipitor] 20 mg PO QHS tablet 02/15/17 Unknown Rx Cipro/Dexameth 0.3/0.1% [Ciprodex 4 drops AU BID bottle 02/15/17 Unknown Rx OTIC] Detemir (Nf) [Levemir (Nf)] 100 units SUB-Q QHS units 02/15/17 Unknown Rx Dextrose 50% in Water [D50W (25GM) 50 ml IV PRN PRN #30 syringe 02/15/17 Unknown Rx Syringe] Enoxaparin 40 mg SUB-Q QDAY syringe 02/15/17 Unknown Rx Lipase/Protease/Amylase [Pancreaze 1 each FEEDTUBE PRN PRN #30 capsule 02/15/17 Unknown Rx 10,500 Unit] Metoprolol [Lopressor TAB] 25 mg PO BID tablet 02/15/17 Unknown Rx Metoprolol [Lopressor TAB] 25 mg PO BID #60 tablet 02/15/17 Unknown Rx Ondansetron [Zofran INJ] 4 mg IV Q8H PRN #30 vial 02/15/17 Unknown Rx Prednisone [predniSONE 5 mg (6-Day 5 mg PO .TAPER #1 tab.ds.pk 02/15/17 Unknown Rx Pack, 21 Tabs)] Simple Syrup 15 ml FEEDTUBE PRN PRN #30 02/15/17 Unknown Rx oral.liqd Simple Syrup 30 ml FEEDTUBE PRN PRN #30 02/15/17 Unknown Rx oral.liqd Sodium Bicarbonate 325 mg FEEDTUBE PRN PRN #30 tablet 02/15/17 Unknown Rx amLODIPine 10 mg PO DAILY tablet 02/15/17 Unknown Rx amLODIPine [Norvasc] 10 mg PO DAILY #30 tab 02/15/17 Unknown Rx bisacodyL [Dulcolax suppos] 10 mg AR QDAY PRN #30 supp.rect 02/15/17 Unknown Rx chlorproMAZINE [Thorazine] 10 mg PO Q6H PRN #30 tablet 02/15/17 Unknown Rx dexAMETHasone [Decadron] 6 mg IV Q6HR vial 02/15/17 Unknown Rx hydrALAZINE [Apresoline INJ] 10 mg IV Q6HR PRN #30 vial 02/15/17 Unknown Rx oxyCODONE /ACETAMINOPHEN [Percocet 1 tab PO Q4H PRN #30 tablet 02/15/17 Unknown Rx 5/325 mg] oxyCODONE /ACETAMINOPHEN [Percocet 1 tab PO Q4HR #30 tab 02/15/17 Unknown Rx 5/325] tiZANidine [Zanaflex 4mg TAB] 4 mg PO Q8H PRN #30 tablet 02/15/17 Unknown Rx Permethrin 5% [Acticin 5% CREAM] 1 applicatio TP ONCE #1 tube 06/11/17 Unknown Rx Azithromycin [Zithromax Z-BENJIE] 250 mg PO DAILY 1 Days tab 11/23/18 Unknown Rx Ondansetron [Zofran Odt] 4 mg PO Q8HR PRN #14 tab.rapdis 11/23/18 Unknown Rx traMADoL [Ultram 50 MG tab] 50 mg PO Q4HR PRN #14 tablet 11/23/18 Unknown Rx Active Meds: Active Medications Azithromycin 500 mg/ Sodium (Chloride) 250 mls @ 250 mls/hr IV ONCE ONE; Protocol Stop: 05/31/20 16:36 Ceftriaxone Sodium (Rocephin/Ns 1 Gm/50 Ml) 1 gm in 50 mls @ 100 mls/hr IV ONCE ONE; Protocol Stop: 05/31/20 16:06 Review of Systems All systems: negative Constitutional: fever, chills, fatigue, weakness, malaise Respiratory: cough, cough with sputum Gastrointestinal: diarrhea Exam - Physical Exam Narrative exam: VITAL SIGNS: Reviewed. GENERAL: The patient appears normally developed, lethargic, obese vital signs as documented. HEAD: No signs of head trauma. EYES: Pupils are equal. Extraocular motions intact. EARS: Hearing grossly intact. MOUTH: Oropharynx is normal. NECK: No adenopathy, no JVD. CHEST: Rapid respiratory rate chest with diminished breath sounds bilaterally. No wheezes, rales, or rhonchi. CARDIAC: Regular rate and rhythm. S1 and S2, without murmurs, gallops, or rubs. VASCULAR: No Edema. Peripheral pulses normal and equal in all extremities. ABDOMEN: Soft, non tender and non distended. No rebound or guarding, and no masses palpated. Bowel Sounds normal. MUSCULOSKELETAL: Good range of motion of all major joints. Extremities without clubbing, cyanosis or edema. NEUROLOGIC EXAM: Awake but lethargic and oriented x 3 No focal sensory or strength deficits. Speech normal. Follows commands. PSYCHIATRIC: Mood normal. SKIN: detail exam as documented in skin assessment - Constitutional Vitals: Temp Pulse Resp BP Pulse Ox 99.4 F 93 H 24 134/75 88 05/31/20 13:07 05/31/20 13:07 05/31/20 13:07 05/31/20 13:07 05/31/20 13:07 Results - Labs CBC & Chem 7: 05/31/20 15:23 05/31/20 16:49 Hess/IV: IV Catheter Type [Right INT / Saline Lock Antecubital] Assessment and Plan Assessment and plan: 54 year old male presenting with shortness of breath, with hypoxia on admission, saturation in the low 80s. PMHx of HTN PCP- Calin alicia Home med: ANTONIO, METOPROLOL, LORSTAN, HYDRALAZIN AND AMYLODPIN CXR: Bilateral lobar inflitrates- My own read Acute Hypoxic Respiratory failure Suspected 2019 novel sampson virus Pneumonia Bilateral penumonia KEITH WITH VASOMOTOR NEPHROPATHY ON CKD Stage 3 HTN DM with hyperglycemia Plan Admit to [facility] Pulmonary and ID consult Start on Abx Labs pending No fluids due to high suspecion for covid 19 ABG Start on steroids be mindful of elevated blood sugar we will start patient on insulin therapy. Blood clutures Aspiration precautions DVT/GI prophy Plan discussed with the patient The high probability of a clinically significant, sudden or life threatening deterioration of the [pulmonary] system(s) required my full and direct attention, intervention and personal management. The aggregate critical care time was [60] minutes. This time is in addition to time spent performing reported procedures but includes the following: [x] Data Review and interpretation [x] Patient assessment and monitoring of vital signs [x] Documentation [x] Medication orders and management Advance Directives: Yes Plan of care discussed with patient/family: Yes
[2020-05-31 15:50] LABS: Basophils % (Auto) 0.5 % (0.0-1.8); Hematocrit 40.9 % (35.5-45.6); Lymphocytes % (Auto) 12.9 % (13.4-35.0); Mean Corpuscular HGB Conc 34 % (32-34); Mean Corpuscular Volume 86 fl (84-94); Monocytes # (Auto) 0.4 K/mm3 (0.0-0.8); Monocytes % (Auto) 4.9 % (0.0-7.3); Platelet Count 240 K/mm3 (140-440); Red Blood Count 4.73 M/mm3 (3.65-5.03); Red Cell Distribution Width 15.7 % (13.2-15.2)
[2020-05-31] MEDS ORDERED: tiZANidine TAB 4 MG TAB PO PRN (15:57)
[2020-05-31] MEDS ORDERED: ONDANSETRON 4 MG/2 ML INJ IV PRN (15:57)
[2020-05-31 15:59] LABS: INR 0.83 (0.87-1.13)
[2020-05-31] MEDS ORDERED: VANCOMYCIN PHARMACY TO DOSE IV SCH (16:00)
[2020-05-31] MEDS ORDERED: ENOXAPARIN 40 MG/0.4 ML INJ SUB-Q SCH (16:00)
--- NOTE | 2020-05-31 16:01 | XRay Report ---
CHEST 1 VIEW INDICATION: dyspnea hypoxia. COMPARISON: 11/22/2018 FINDINGS: Support devices: None. Heart: Normal. Lungs/Pleura: There are patchy predominantly peripheral bilateral pulmonary opacities greatest in the mid and lower lungs. No significant effusion, no pneumothorax. IMPRESSION: 1. Patchy bilateral pulmonary opacities are likely infectious in etiology. Signer Name: Bc Champion MD Signed: 05/31/2020 3:56 PM Workstation Name: [id number]
[2020-05-31 16:14] LABS: C-Reactive Protein 14.3 mg/dL (0.00-1.30)
[2020-05-31 16:15] LABS: Albumin 3.3 g/dL (3.9-5); Calcium 9.1 mg/dL (8.4-10.2)
[2020-05-31] MEDS ORDERED: VANCOMYCIN 1,500 MG in SODIUM CHLORIDE 0.9% 500 ML 500 ML IV ONE (16:30)
[2020-05-31] MEDS ORDERED: dexAMETHasone 4 MG/ML VIAL ONE ×2 (16:47→16:48)
[2020-05-31] MEDS ORDERED: INSULIN LISPRO 100 UNIT/ML VIAL 3 mL SUB-Q ONE (16:51)
[2020-05-31] MEDS: INSULIN LISPRO 100 UNIT/ML VIAL 3 mL SUB-Q SCH (17:38)
--- NOTE | 2020-05-31 17:59 | Consultation ---
History of Present Illness - Reason for Consult Consult date: 05/31/20 Pneumonia Requesting physician: DERIK VALERA - History of Present Illness The patient is a 54-year-old male with diabetes, CKD, prior CVA, obesity was admitted to the hospital with complaints of cough, shortness of breath along with fatigue and malaise. He also had shortness of breath. Patient saturation was 90% on room air with a respiratory rate of 24/min. Chest x-ray showed patc hy bilateral airspace disease. Labs showed no leukocytosis. COVID-19 PCR is pending. CRP 14.0, LDH 409, ferritin 599, creatinine 3.0. Low grade fever. Now on HFNC. Review of Systems: reviewed in the chart, unable to obtain directly due to PPE preservation and minimize risk of transmission Medications and Allergies Allergies Allergy/AdvReac Type Severity Reaction Status Date / Time lisinopril Allergy Angioedema Verified 05/31/20 13:03 Penicillins Allergy Hives Verified 05/31/20 13:03 Home Medications Medication Instructions Recorded Confirmed Last Taken Type Acetaminophen [Acetaminophen TAB] 650 mg PO Q4H PRN #30 tablet 02/15/17 Unknown Rx AtorvaSTATin [Lipitor] 20 mg PO QHS tablet 02/15/17 Unknown Rx Cipro/Dexameth 0.3/0.1% [Ciprodex 4 drops AU BID bottle 02/15/17 Unknown Rx OTIC] Detemir (Nf) [Levemir (Nf)] 100 units SUB-Q QHS units 02/15/17 Unknown Rx Dextrose 50% in Water [D50W (25GM) 50 ml IV PRN PRN #30 syringe 02/15/17 Unknown Rx Syringe] Enoxaparin 40 mg SUB-Q QDAY syringe 02/15/17 Unknown Rx Lipase/Protease/Amylase [Pancreaze 1 each FEEDTUBE PRN PRN #30 capsule 02/15/[address] 10,500 Unit] Metoprolol [Lopressor TAB] 25 mg PO BID tablet 02/15/17 Unknown Rx Metoprolol [Lopressor TAB] 25 mg PO BID #60 tablet 02/15/17 Unknown Rx Ondansetron [Zofran INJ] 4 mg IV Q8H PRN #30 vial 02/15/17 Unknown Rx Prednisone [predniSONE 5 mg (6-Day 5 mg PO .TAPER #1 tab.ds.pk 02/15/17 Unknown Rx Pack, 21 Tabs)] Simple Syrup 15 ml FEEDTUBE PRN PRN #30 02/15/17 Unknown Rx oral.liqd Simple Syrup 30 ml FEEDTUBE PRN PRN #30 02/15/17 Unknown Rx oral.liqd Sodium Bicarbonate 325 mg FEEDTUBE PRN PRN #30 tablet 02/15/17 Unknown Rx amLODIPine 10 mg PO DAILY tablet 02/15/17 Unknown Rx amLODIPine [Norvasc] 10 mg PO DAILY #30 tab 02/15/17 Unknown Rx bisacodyL [Dulcolax suppos] 10 mg PA QDAY PRN #30 supp.rect 02/15/17 Unknown Rx chlorproMAZINE [Thorazine] 10 mg PO Q6H PRN #30 tablet 02/15/17 Unknown Rx dexAMETHasone [Decadron] 6 mg IV Q6HR vial 02/15/17 Unknown Rx hydrALAZINE [Apresoline INJ] 10 mg IV Q6HR PRN #30 vial 02/15/17 Unknown Rx oxyCODONE /ACETAMINOPHEN [Percocet 1 tab PO Q4H PRN #30 tablet 02/15/17 Unknown Rx 5/325 mg] oxyCODONE /ACETAMINOPHEN [Percocet 1 tab PO Q4HR #30 tab 02/15/17 Unknown Rx 5/325] tiZANidine [Zanaflex 4mg TAB] 4 mg PO Q8H PRN #30 tablet 02/15/17 Unknown Rx Permethrin 5% [Acticin 5% CREAM] 1 applicatio TP ONCE #1 tube 06/11/17 Unknown Rx Azithromycin [Zithromax Z-BENJIE] 250 mg PO DAILY 1 Days tab 11/23/18 Unknown Rx Ondansetron [Zofran Odt] 4 mg PO Q8HR PRN #14 tab.rapdis 11/23/18 Unknown Rx traMADoL [Ultram 50 MG tab] 50 mg PO Q4HR PRN #14 tablet 11/23/18 Unknown Rx Active Meds: Active Medications Acetaminophen (Tylenol) 650 mg PO Q6H PRN PRN Reason: Pain MILD(1-3)/Fever >100.5/LEBRON Albuterol (Proventil) 2.5 mg IH Q3HRT PRN PRN Reason: Shortness Of Breath Amlodipine Besylate (Amlodipine) 10 mg PO DAILY [facility] Atorvastatin Calcium (Lipitor) 20 mg PO QHS [facility] Bisacodyl (Dulcolax) 10 mg PA QDAY PRN PRN Reason: Constipation unrelieved by MOM Chlorpromazine HCl (Thorazine) 10 mg PO Q6H PRN PRN Reason: Hiccups Dexamethasone (Decadron) 6 mg PO DAILY [facility] Stop: 06/11/20 09:59 Dextrose (D50w (25gm) Syringe) 50 ml IV Q30MIN PRN; Protocol PRN Reason: Hypoglycemia Enoxaparin Sodium (Enoxaparin) 40 mg SUB-Q QDAY [facility] Azithromycin 500 mg/ Sodium (Chloride) 250 mls @ 250 mls/hr IV Q24HR [facility]; Protocol Insulin Glargine (Lantus) 100 units SUB-Q QHS [facility] Insulin Human Lispro (Humalog) 0 unit SUB-Q Q6H [facility]; Protocol Last Admin: 05/31/20 17:38 Dose: 4 unit Documented by: Naloxone HCl (Naloxone) 0.1 mg IV Q2MIN PRN PRN Reason: Res Rate </= 8 or 02 SAT < 92% Ondansetron HCl (Zofran) 4 mg IV Q8H PRN PRN Reason: N/V unrelieved by Reglan Oxycodone/Acetaminophen (Percocet 5/325) 1 tab PO Q6H PRN PRN Reason: Pain, Moderate (4-6) Sodium Chloride (Sodium Chloride Flush Syringe 10 Ml) 10 ml IV BID [facility] Sodium Chloride (Sodium Chloride Flush Syringe 10 Ml) 10 ml IV PRN PRN PRN Reason: LINE FLUSH Tizanidine HCl (Zanaflex) 4 mg PO Q8H PRN PRN Reason: Muscle Spasm Physical Examination - Physical Exam Narrative exam: Physical Exam (reviewed in chart due to PPE conservation and minimize risk of transmission) Constitutional: limited due to PPE conservation strategy Head, Ears, Nose: limited due to PPE conservation strategy Eyes: limited due to PPE conservation strategy Neck: limited due to PPE conservation strategy Oral: limited due to PPE conservation strategy Cardiovascular: limited due to PPE conservation strategy Respiratory: limited due to PPE conservation strategy GI: limited due to PPE conservation strategy Musculoskeletal: limited due to PPE conservation strategy Skin: limited due to PPE conservation strategy Hem/Lymphatic: limited due to PPE conservation strategy Psych: limited due to PPE conservation strategy Neurological: limited due to PPE conservation strategy - Constitutional Vitals: Vital Signs Temp Pulse Resp BP Pulse Ox 99.4 F 97 H 46 H 141/90 94 05/31/20 13:07 05/31/20 17:15 05/31/20 17:15 05/31/20 17:15 05/31/20 17:15 Temperature -Last 24 Hours Temperature 99.4 F Results - Labs CBC & Chem 7: 05/31/20 15:23 05/31/20 16:49 Labs: Abnormal lab results 05/31/20 05/31/20 05/31/20 Range/Units 15:23 15:23 15:23 RDW (13.2-15.2) % Lymph % (Auto) (13.4-35.0) % Lymph # (1.2-5.4) K/mm3 Seg Neutrophils % (40.0-70.0) % PT (12.2-14.9) Sec. INR (0.87-1.13) Sodium (137-145) mmol/L Chloride (98-107) mmol/L BUN (9-20) mg/dL Creatinine (0.8-1.3) mg/dL Glucose 280 H (75-100) mg/dL POC Glucose (70-105) Hemoglobin A1c (4-6) % Ferritin 583.4 H (30.0-300.0) ng/mL Lactate Dehydrogenase 392 H (91-180) units/L Total Creatine Kinase 325 H (55-170) units/L C-Reactive Protein 14.30 H (0.00-1.30) mg/dL Albumin (3.9-5) g/dL 05/31/20 05/31/20 05/31/20 Range/Units 15:23 15:23 15:23 RDW 15.7 H (13.2-15.2) % Lymph % (Auto) 12.9 L (13.4-35.0) % Lymph # 1.0 L (1.2-5.4) K/mm3 Seg Neutrophils % 81.7 H (40.0-70.0) % PT 11.5 L (12.2-14.9) Sec. INR 0.83 L (0.87-1.13) Sodium 134 L (137-145) mmol/L Chloride 97.2 L (98-107) mmol/L BUN 28 H (9-20) mg/dL Creatinine 3.0 H (0.8-1.3) mg/dL Glucose 279 H (75-100) mg/dL POC Glucose (70-105) Hemoglobin A1c (4-6) % Ferritin (30.0-300.0) ng/mL Lactate Dehydrogenase (91-180) units/L Total Creatine Kinase (55-170) units/L C-Reactive Protein (0.00-1.30) mg/dL Albumin 3.3 L (3.9-5) g/dL 05/31/20 05/31/20 05/31/20 Range/Units 16:47 16:49 16:49 RDW (13.2-15.2) % Lymph % (Auto) (13.4-35.0) % Lymph # (1.2-5.4) K/mm3 Seg Neutrophils % (40.0-70.0) % PT (12.2-14.9) Sec. INR (0.87-1.13) Sodium (137-145) mmol/L Chloride (98-107) mmol/L BUN (9-20) mg/dL Creatinine (0.8-1.3) mg/dL Glucose 258 H (75-100) mg/dL POC Glucose 239 H (70-105) Hemoglobin A1c (4-6) % Ferritin 599.0 H (30.0-300.0) ng/mL Lactate Dehydrogenase 409 H (91-180) units/L Total Creatine Kinase (55-170) units/L C-Reactive Protein 14.00 H (0.00-1.30) mg/dL Albumin (3.9-5) g/dL 05/31/20 Range/Units 16:49 RDW (13.2-15.2) % Lymph % (Auto) (13.4-35.0) % Lymph # (1.2-5.4) K/mm3 Seg Neutrophils % (40.0-70.0) % PT (12.2-14.9) Sec. INR (0.87-1.13) Sodium (137-145) mmol/L Chloride (98-107) mmol/L BUN (9-20) mg/dL Creatinine (0.8-1.3) mg/dL Glucose (75-100) mg/dL POC Glucose (70-105) Hemoglobin A1c 8.5 H (4-6) % Ferritin (30.0-300.0) ng/mL Lactate Dehydrogenase (91-180) units/L Total Creatine Kinase (55-170) units/L C-Reactive Protein (0.00-1.30) mg/dL Albumin (3.9-5) g/dL - Imaging and Cardiology Chest x-ray: report reviewed, image reviewed (patchy bilateral airspace disease) Assessment and Plan Cultures: Coronavirus PCR: pending Blood culture: In process A/P: 54-year-old male with diabetes, CKD, prior CVA, obesity was admitted to the hospital with complaints of cough, shortness of breath along with fatigue and malaise: #Bilateral pneumonia: Labs showed no leukocytosis. COVID-19 PCR is pending. CRP 14.0, LDH 409, ferritin 599, creatinine 3.0. #Acute hypoxic respiratory failure: on high flow. #KEITH on CKD Recs: High suspicion for COVID-19, follow-up test but meanwhile would recommend IV/PO Dexamethasone 6 mg daily x 10 days Empiric antibiotics till procalcitonin results are available Not a candidate for Remdesivir due to renal failure if COVID positive, trend ferritin, LDH, d-dimer, CRP every 2-3 days for risk stratification and to assess disease progression; prophylactic anticoagulation b ased on d-dimer Nasim Gaitan MD, FACP [facility], [place], [facility] ([facility] C: [phone] O: [phone] F: [phone]
[2020-05-31] MEDS ORDERED: DETEMIR SUB-Q SCH (22:00)
[2020-06-01] MEDS: INSULIN LISPRO 100 UNIT/ML VIAL 3 mL SUB-Q SCH ×4 (00:27→16:12)
[2020-06-01] MEDS: INSULIN GLARGINE 100 UNITS/ML SUB-Q SCH (00:27)
--- NOTE | 2020-06-01 09:27 | Consultation ---
History of Present Illness - Reason for Consult Consult date: 06/01/20 acute renal failure Requesting physician: JAIME SOTO - History of Present Illness 54 y/o male who presented to the ED yesterday with cough and shortness of breath. Feels he may have come into contact with COVID. No prior history of lung disease. CXR shows bilateral patch infiltrates. Was 90% on room air but then progressed to needing HFNC at 20 liters and 100%. Pulmonary consulted for help with management. Past History Past Medical History: hypertension Past Surgical History: No surgical history Social history: no significant social history, full code Family history: no significant family history Medications and Allergies Allergies Allergy/AdvReac Type Severity Reaction Status Date / Time lisinopril Allergy Angioedema Verified 05/31/20 13:03 Penicillins Allergy Hives Verified 05/31/20 13:03 Home Medications Medication Instructions Recorded Confirmed Last Taken Type Acetaminophen [Acetaminophen TAB] 650 mg PO Q4H PRN #30 tablet 02/15/17 Unknown Rx AtorvaSTATin [Lipitor] 20 mg PO QHS tablet 02/15/17 Unknown Rx Cipro/Dexameth 0.3/0.1% [Ciprodex 4 drops AU BID bottle 02/15/17 Unknown Rx OTIC] Detemir (Nf) [Levemir (Nf)] 100 units SUB-Q QHS units 02/15/17 Unknown Rx Dextrose 50% in Water [D50W (25GM) 50 ml IV PRN PRN #30 syringe 02/15/17 Unknown Rx Syringe] Enoxaparin 40 mg SUB-Q QDAY syringe 02/15/17 Unknown Rx Lipase/Protease/Amylase [Pancreaze 1 each FEEDTUBE PRN PRN #30 capsule 02/15/[address] 10,500 Unit] Metoprolol [Lopressor TAB] 25 mg PO BID tablet 02/15/17 Unknown Rx Metoprolol [Lopressor TAB] 25 mg PO BID #60 tablet 02/15/17 Unknown Rx Ondansetron [Zofran INJ] 4 mg IV Q8H PRN #30 vial 02/15/17 Unknown Rx Prednisone [predniSONE 5 mg (6-Day 5 mg PO .TAPER #1 tab.ds.pk 02/15/17 Unknown Rx Pack, 21 Tabs)] Simple Syrup 15 ml FEEDTUBE PRN PRN #30 02/15/17 Unknown Rx oral.liqd Simple Syrup 30 ml FEEDTUBE PRN PRN #30 02/15/17 Unknown Rx oral.liqd Sodium Bicarbonate 325 mg FEEDTUBE PRN PRN #30 tablet 02/15/17 Unknown Rx amLODIPine 10 mg PO DAILY tablet 02/15/17 Unknown Rx amLODIPine [Norvasc] 10 mg PO DAILY #30 tab 02/15/17 Unknown Rx bisacodyL [Dulcolax suppos] 10 mg [place] QDAY PRN #30 supp.rect 02/15/17 Unknown Rx chlorproMAZINE [Thorazine] 10 mg PO Q6H PRN #30 tablet 02/15/17 Unknown Rx dexAMETHasone [Decadron] 6 mg IV Q6HR vial 02/15/17 Unknown Rx hydrALAZINE [Apresoline INJ] 10 mg IV Q6HR PRN #30 vial 02/15/17 Unknown Rx oxyCODONE /ACETAMINOPHEN [Percocet 1 tab PO Q4H PRN #30 tablet 02/15/17 Unknown Rx 5/325 mg] oxyCODONE /ACETAMINOPHEN [Percocet 1 tab PO Q4HR #30 tab 02/15/17 Unknown Rx 5/325] tiZANidine [Zanaflex 4mg TAB] 4 mg PO Q8H PRN #30 tablet 02/15/17 Unknown Rx Permethrin 5% [Acticin 5% CREAM] 1 applicatio TP ONCE #1 tube 06/11/17 Unknown Rx Azithromycin [Zithromax Z-BENJIE] 250 mg PO DAILY 1 Days tab 11/23/18 Unknown Rx Ondansetron [Zofran Odt] 4 mg PO Q8HR PRN #14 tab.rapdis 11/23/18 Unknown Rx traMADoL [Ultram 50 MG tab] 50 mg PO Q4HR PRN #14 tablet 11/23/18 Unknown Rx Active Meds: Active Medications Acetaminophen (Tylenol) 650 mg PO Q6H PRN PRN Reason: Pain MILD(1-3)/Fever >100.5/LEBRON Albuterol (Proventil) 2.5 mg IH Q3HRT PRN PRN Reason: Shortness Of Breath Amlodipine Besylate (Amlodipine) 10 mg PO DAILY [facility] Atorvastatin Calcium (Lipitor) 20 mg PO QHS [facility] Last Admin: 06/01/20 00:28 Dose: Not Given Documented by: Bisacodyl (Dulcolax) 10 mg [place] QDAY PRN PRN Reason: Constipation unrelieved by MOM Chlorpromazine HCl (Thorazine) 10 mg PO Q6H PRN PRN Reason: Hiccups Dexamethasone (Decadron) 6 mg PO DAILY [facility] Stop: 06/11/20 09:59 Dextrose (D50w (25gm) Syringe) 50 ml IV Q30MIN PRN; Protocol PRN Reason: Hypoglycemia Enoxaparin Sodium (Enoxaparin) 30 mg SUB-Q QDAY [facility] Azithromycin 500 mg/ Sodium (Chloride) 250 mls @ 250 mls/hr IV Q24HR [facility]; Protocol Ceftriaxone Sodium (Rocephin/Ns 2 Gm/100 Ml) 2 gm in 100 mls @ 200 mls/hr IV Q24HR [facility]; Protocol Insulin Glargine (Lantus) 100 units SUB-Q QHS [facility] Last Admin: 06/01/20 00:27 Dose: Not Given Documented by: Insulin Human Lispro (Humalog) 0 unit SUB-Q Q6H [facility]; Protocol Last Admin: 06/01/20 06:51 Dose: Not Given Documented by: Naloxone HCl (Naloxone) 0.1 mg IV Q2MIN PRN PRN Reason: Res Rate </= 8 or 02 SAT < 92% Ondansetron HCl (Zofran) 4 mg IV Q8H PRN PRN Reason: N/V unrelieved by Reglan Oxycodone/Acetaminophen (Percocet 5/325) 1 tab PO Q6H PRN PRN Reason: Pain, Moderate (4-6) Sodium Chloride (Sodium Chloride Flush Syringe 10 Ml) 10 ml IV BID [facility] Last Admin: 05/31/20 23:40 Dose: 10 ml Documented by: Sodium Chloride (Sodium Chloride Flush Syringe 10 Ml) 10 ml IV PRN PRN PRN Reason: LINE FLUSH Tizanidine HCl (Zanaflex) 4 mg PO Q8H PRN PRN Reason: Muscle Spasm Review of Systems Constitutional: sweats, fatigue, weakness, malaise, poor appetite Exam - Vital Signs Vital signs: Vital Signs Temp Pulse Resp BP Pulse Ox 99.4 F 93 H 24 134/75 88 05/31/20 13:07 05/31/20 13:07 05/31/20 13:07 05/31/20 13:07 05/31/20 13:07 - Physical Exam Narrative exam: GENERAL: The patient appears normally developed, lethargic, obese vital signs as documented. HEAD: No signs of head trauma. EYES: Pupils are equal. Extraocular motions intact. EARS: Hearing grossly intact. MOUTH: Oropharynx is normal. NECK: No adenopathy, no JVD. CHEST: Rapid respiratory rate chest with diminished breath sounds bilaterally. No wheezes, rales, or rhonchi. CARDIAC: Regular rate and rhythm. S1 and S2, without murmurs, gallops, or rubs. VASCULAR: No Edema. Peripheral pulses normal and equal in all extremities. ABDOMEN: Soft, non tender and non distended. No rebound or guarding, and no masses palpated. Bowel Sounds normal. MUSCULOSKELETAL: Good range of motion of all major joints. Extremities without clubbing, cyanosis or edema. NEUROLOGIC EXAM: Awake but lethargic and oriented x 3 No focal sensory or strength deficits. Speech normal. Follows commands. PSYCHIATRIC: Mood normal. SKIN: detail exam as documented in skin assessment Results - Lab Results 06/01/20 13:41 06/01/20 13:41 Most recent lab results WBC 8.1 K/mm3 (4.5-11.0) 05/31/20 15:23 RBC 4.73 M/mm3 (3.65-5.03) 05/31/20 15:23 Hgb 14.0 gm/dl (11.8-15.2) 05/31/20 15:23 Hct 40.9 % (35.5-45.6) 05/31/20 15:23 MCV 86 fl (84-94) 05/31/20 15:23 MCH 30 pg (28-32) 05/31/20 15:23 MCHC 34 % (32-34) 05/31/20 15:23 RDW 15.7 % (13.2-15.2) H 05/31/20 15:23 Plt Count 240 K/mm3 (140-440) 05/31/20 15:23 Lymph % (Auto) 12.9 % (13.4-35.0) L 05/31/20 15:23 [facility] % (Auto) 4.9 % (0.0-7.3) 05/31/20 15:23 Eos % (Auto) 0.0 % (0.0-4.3) 05/31/20 15:23 Baso % (Auto) 0.5 % (0.0-1.8) 05/31/20 15:23 Lymph # 1.0 K/mm3 (1.2-5.4) L 05/31/20 15:23 [facility] # 0.4 K/mm3 (0.0-0.8) 05/31/20 15:23 Eos # 0.0 K/mm3 (0.0-0.4) 05/31/20 15:23 Baso # 0.0 K/mm3 (0.0-0.1) 05/31/20 15:23 Seg Neutrophils % 81.7 % (40.0-70.0) H 05/31/20 15:23 Seg Neutrophils # 6.6 K/mm3 (1.8-7.7) 05/31/20 15:23 PT 11.5 Sec. (12.2-14.9) L 05/31/20 15:23 INR 0.83 (0.87-1.13) L 05/31/20 15:23 D-Dimer 738.85 ng/mlDDU (0-234) H 05/31/20 16:49 Sodium 134 mmol/L (137-145) L 05/31/20 15:23 Potassium 4.6 mmol/L (3.6-5.0) 05/31/20 15:23 Chloride 97.2 mmol/L (98-107) L 05/31/20 15:23 Carbon Dioxide 22 mmol/L (22-30) 05/31/20 15:23 Anion Gap 19 mmol/L 05/31/20 15:23 BUN 28 mg/dL (9-20) H 05/31/20 15:23 Creatinine 3.0 mg/dL (0.8-1.3) H 05/31/20 15:23 Estimated GFR 26 ml/min 05/31/20 15:23 BUN/Creatinine Ratio 9 % 05/31/20 15:23 Glucose 258 mg/dL (75-100) H 05/31/20 16:49 POC Glucose 239 (70-105) H 05/31/20 16:47 Hemoglobin A1c 8.5 % (4-6) H 05/31/20 16:49 Calcium 9.1 mg/dL (8.4-10.2) 05/31/20 15:23 Magnesium 2.20 mg/dL (1.7-2.3) 05/31/20 15:23 Ferritin 599.0 ng/mL (30.0-300.0) H 05/31/20 16:49 Total Bilirubin 0.40 mg/dL (0.1-1.2) 05/31/20 15:23 AST 35 units/L (5-40) 05/31/20 15:23 ALT 33 units/L (7-56) 05/31/20 15:23 Alkaline Phosphatase 71 units/L (35-129) 05/31/20 15:23 Lactate Dehydrogenase 409 units/L (91-180) H 05/31/20 16:49 Total Creatine Kinase 325 units/L (55-170) H 05/31/20 15:23 Troponin T 0.021 ng/mL (0.00-0.029) 05/31/20 15:23 C-Reactive Protein 14.00 mg/dL (0.00-1.30) H 05/31/20 16:49 Total Protein 8.0 g/dL (6.3-8.2) 05/31/20 15:23 Albumin 3.3 g/dL (3.9-5) L 05/31/20 15:23 Albumin/Globulin Ratio 0.7 % 05/31/20 15:23 Assessment and Plan Impression: * 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 * Hyperlipidemia. * Diabetes mellitus type 2, uncontrolled. * Leukocytosis * Hyperkalemia. * mild collecting system fullness Plan: * bun/cr noted, was 2.0 in 2017 * no emergent need for [employer]PECTING [employer]ENT today, but high risk for ATN * follow up renal us * keep MAP >65 * resp failure management per Pulm/CC * avoid nephrotoxins * k is better today * strict i/os * lytes prn * renal diet
[2020-06-01] MEDS ORDERED: DEXAMETHASONE 4 MG TAB ONE (10:07)
[2020-06-01] MEDS ORDERED: cefTRIAXone/NS 2 GM/100 ML 2 GM/100 ML BAG IV ONE (10:07)
[2020-06-01] MEDS ORDERED: ENOXAPARIN 30 MG/0.3 ML INJ SUB-Q ONE (10:07)
[2020-06-01] MEDS ORDERED: amLODIPine 10 MG TAB ONE (10:08)
[2020-06-01] MEDS ORDERED: oxyCODONE /ACETAMINOPHEN 5-325MG TAB ONE (10:11)
[2020-06-01] MEDS ORDERED: INSULIN LISPRO 100 UNIT/ML VIAL 3 mL SUB-Q ONE ×2 (10:12→16:04)
[2020-06-01] MEDS: cefTRIAXone/NS 2 GM/100 ML 2 GM/100 ML BAG IV SCH (10:17)
[2020-06-01] MEDS: ENOXAPARIN 30 MG/0.3 ML INJ SUB-Q SCH (10:18)
[2020-06-01] MEDS: oxyCODONE /ACETAMINOPHEN 5-325MG TAB PO PRN (10:19)
[2020-06-01] MEDS: DEXAMETHASONE 4 MG TAB PO SCH (10:21)
[2020-06-01] MEDS: amLODIPine 10 MG TAB PO SCH (10:21)
[2020-06-01] MEDS ORDERED: amLODIPine 5 MG TAB ONE (10:22)
[2020-06-01] MEDS: AZITHROMYCIN 500 MG in SODIUM CHLORIDE 0.9% 250ML 250 ML IV SCH (12:34)
--- NOTE | 2020-06-01 13:58 | Consultation ---
History of Present Illness Consult date: 06/01/20 Requesting physician: DERIK VALERA Reason for consult: hypoxemia, pneumonia, other (concern for COVID) History of present illness: 54 y/o male who presented to the ED yesterday with cough and shortness of breath. Feels he may have come into contact with COVID. No prior history of lung disease. CXR shows bilateral patch infiltrates. Was 90% on room air but then progressed to needing HFNC at 20 liters and 100%. Pulmonary consulted for help with management. Past History Past Medical History: hypertension Past Surgical History: No surgical history Social history: no significant social history, full code Family history: no significant family history Medications and Allergies Allergies Allergy/AdvReac Type Severity Reaction Status Date / Time lisinopril Allergy Angioedema Verified 05/31/20 13:03 Penicillins Allergy Hives Verified 05/31/20 13:03 Home Medications Medication Instructions Recorded Confirmed Last Taken Type Acetaminophen [Acetaminophen TAB] 650 mg PO Q4H PRN #30 tablet 02/15/17 Unknown Rx AtorvaSTATin [Lipitor] 20 mg PO QHS tablet 02/15/17 Unknown Rx Cipro/Dexameth 0.3/0.1% [Ciprodex 4 drops AU BID bottle 02/15/17 Unknown Rx OTIC] Detemir (Nf) [Levemir (Nf)] 100 units SUB-Q QHS units 02/15/17 Unknown Rx Dextrose 50% in Water [D50W (25GM) 50 ml IV PRN PRN #30 syringe 02/15/17 Unknown Rx Syringe] Enoxaparin 40 mg SUB-Q QDAY syringe 02/15/17 Unknown Rx Lipase/Protease/Amylase [Pancreaze 1 each FEEDTUBE PRN PRN #30 capsule 02/15/[address] 10,500 Unit] Metoprolol [Lopressor TAB] 25 mg PO BID tablet 02/15/17 Unknown Rx Metoprolol [Lopressor TAB] 25 mg PO BID #60 tablet 02/15/17 Unknown Rx Ondansetron [Zofran INJ] 4 mg IV Q8H PRN #30 vial 02/15/17 Unknown Rx Prednisone [predniSONE 5 mg (6-Day 5 mg PO .TAPER #1 tab.ds.pk 02/15/17 Unknown Rx Pack, 21 Tabs)] Simple Syrup 15 ml FEEDTUBE PRN PRN #30 02/15/17 Unknown Rx oral.liqd Simple Syrup 30 ml FEEDTUBE PRN PRN #30 02/15/17 Unknown Rx oral.liqd Sodium Bicarbonate 325 mg FEEDTUBE PRN PRN #30 tablet 02/15/17 Unknown Rx amLODIPine 10 mg PO DAILY tablet 02/15/17 Unknown Rx amLODIPine [Norvasc] 10 mg PO DAILY #30 tab 02/15/17 Unknown Rx bisacodyL [Dulcolax suppos] 10 mg [place] QDAY PRN #30 supp.rect 02/15/17 Unknown Rx chlorproMAZINE [Thorazine] 10 mg PO Q6H PRN #30 tablet 02/15/17 Unknown Rx dexAMETHasone [Decadron] 6 mg IV Q6HR vial 02/15/17 Unknown Rx hydrALAZINE [Apresoline INJ] 10 mg IV Q6HR PRN #30 vial 02/15/17 Unknown Rx oxyCODONE /ACETAMINOPHEN [Percocet 1 tab PO Q4H PRN #30 tablet 02/15/17 Unknown Rx 5/325 mg] oxyCODONE /ACETAMINOPHEN [Percocet 1 tab PO Q4HR #30 tab 02/15/17 Unknown Rx 5/325] tiZANidine [Zanaflex 4mg TAB] 4 mg PO Q8H PRN #30 tablet 02/15/17 Unknown Rx Permethrin 5% [Acticin 5% CREAM] 1 applicatio TP ONCE #1 tube 06/11/17 Unknown Rx Azithromycin [Zithromax Z-BENJIE] 250 mg PO DAILY 1 Days tab 11/23/18 Unknown Rx Ondansetron [Zofran Odt] 4 mg PO Q8HR PRN #14 tab.rapdis 11/23/18 Unknown Rx traMADoL [Ultram 50 MG tab] 50 mg PO Q4HR PRN #14 tablet 11/23/18 Unknown Rx Active Meds: Active Medications Acetaminophen (Tylenol) 650 mg PO Q6H PRN PRN Reason: Pain MILD(1-3)/Fever >100.5/LEBRON Albuterol (Proventil) 2.5 mg IH Q3HRT PRN PRN Reason: Shortness Of Breath Amlodipine Besylate (Amlodipine) 10 mg PO DAILY CHERI Last Admin: 06/01/20 10:21 Dose: 10 mg Documented by: Atorvastatin Calcium (Lipitor) 20 mg PO QHS [facility] Last Admin: 06/01/20 00:28 Dose: Not Given Documented by: Bisacodyl (Dulcolax) 10 mg NE QDAY PRN PRN Reason: Constipation unrelieved by MOM Chlorpromazine HCl (Thorazine) 10 mg PO Q6H PRN PRN Reason: Hiccups Dexamethasone (Decadron) 6 mg PO DAILY [facility] Stop: 06/11/20 09:59 Last Admin: 06/01/20 10:21 Dose: 6 mg Documented by: Dextrose (D50w (25gm) Syringe) 50 ml IV Q30MIN PRN; Protocol PRN Reason: Hypoglycemia Enoxaparin Sodium (Enoxaparin) 30 mg SUB-Q QDAY [facility] Last Admin: 06/01/20 10:18 Dose: 30 mg Documented by: Azithromycin 500 mg/ Sodium (Chloride) 250 mls @ 250 mls/hr IV Q24HR CHERI; Protocol Last Admin: 06/01/20 12:34 Dose: 250 mls/hr Documented by: Ceftriaxone Sodium (Rocephin/Ns 2 Gm/100 Ml) 2 gm in 100 mls @ 200 mls/hr IV Q24HR CHERI; Protocol Last Admin: 06/01/20 10:17 Dose: 200 mls/hr Documented by: Insulin Glargine (Lantus) 100 units SUB-Q QHS [facility] Last Admin: 06/01/20 00:27 Dose: Not Given Documented by: Insulin Human Lispro (Humalog) 0 unit SUB-Q Q6H [facility]; Protocol Last Admin: 06/01/20 10:23 Dose: 6 unit Documented by: Naloxone HCl (Naloxone) 0.1 mg IV Q2MIN PRN PRN Reason: Res Rate </= 8 or 02 SAT < 92% Ondansetron HCl (Zofran) 4 mg IV Q8H PRN PRN Reason: N/V unrelieved by Reglan Oxycodone/Acetaminophen (Percocet 5/325) 1 tab PO Q6H PRN PRN Reason: Pain, Moderate (4-6) Last Admin: 06/01/20 10:19 Dose: 1 tab Documented by: Sodium Chloride (Sodium Chloride Flush Syringe 10 Ml) 10 ml IV BID [facility] Last Admin: 06/01/20 10:30 Dose: 10 ml Documented by: Sodium Chloride (Sodium Chloride Flush Syringe 10 Ml) 10 ml IV PRN PRN PRN Reason: LINE FLUSH Tizanidine HCl (Zanaflex) 4 mg PO Q8H PRN PRN Reason: Muscle Spasm Physical Examination Vital signs: Vital Signs Temp Pulse Resp BP Pulse Ox 99.4 F 93 H 24 134/75 88 05/31/20 13:07 05/31/20 13:07 05/31/20 13:07 05/31/20 13:07 05/31/20 13:07 Patient not examined in person to preserve PPE during the COVID 10 pandemic Results - Laboratory Findings CBC and BMP: 05/31/20 15:23 05/31/20 16:49 PT/INR, D-dimer PT 11.5 Sec. (12.2-14.9) L 05/31/20 15:23 INR 0.83 (0.87-1.13) L 05/31/20 15:23 D-Dimer 738.85 ng/mlDDU (0-234) H 05/31/20 16:49 Abnormal lab findings: Abnormal Labs 05/31/20 05/31/20 05/31/20 15:23 15:23 15:23 RDW Lymph % (Auto) Lymph # Seg Neutrophils % PT INR D-Dimer Sodium Chloride BUN Creatinine Glucose 280 H POC Glucose Hemoglobin A1c Ferritin 583.4 H Lactate Dehydrogenase 392 H Total Creatine Kinase 325 H C-Reactive Protein 14.30 H Albumin 05/31/20 05/31/20 05/31/20 15:23 15:23 15:23 RDW 15.7 H Lymph % (Auto) 12.9 L Lymph # 1.0 L Seg Neutrophils % 81.7 H PT 11.5 L INR 0.83 L D-Dimer Sodium 134 L Chloride 97.2 L BUN 28 H Creatinine 3.0 H Glucose 279 H POC Glucose Hemoglobin A1c Ferritin Lactate Dehydrogenase Total Creatine Kinase C-Reactive Protein Albumin 3.3 L 05/31/20 05/31/20 05/31/20 16:47 16:49 16:49 RDW Lymph % (Auto) Lymph # Seg Neutrophils % PT INR D-Dimer 738.85 H Sodium Chloride BUN Creatinine Glucose 258 H POC Glucose 239 H Hemoglobin A1c Ferritin Lactate Dehydrogenase 409 H Total Creatine Kinase C-Reactive Protein 14.00 H Albumin 05/31/20 05/31/20 06/01/20 16:49 16:49 10:15 RDW Lymph % (Auto) Lymph # Seg Neutrophils % PT INR D-Dimer Sodium Chloride BUN Creatinine Glucose POC Glucose 277 H Hemoglobin A1c 8.5 H Ferritin 599.0 H Lactate Dehydrogenase Total Creatine Kinase C-Reactive Protein Albumin - Diagnostic Findings Chest x-ray: image reviewed Assessment and Plan 54 y/o male with acute respiratory failure, concern for COVID 19 pneumonia and possibly acute renal failure 1. Wean FiO2 for sats >88% 2. Agree with steroids as ordered by ID, unfortunately not a candidate for remdesivir given renal function 3. Suggest consent for convaslescent plasma 4. Prone as much as tolerated during the day and sleep prone at night 5. Follow up renal recs 6. overall prognosis is guarded, COVID results are not back yet, but renal failure and COVID have been shows to see worse clinical outcomes.
[2020-06-01 14:10] LABS: Basophils % (Auto) 0.1 % (0.0-1.8); Hematocrit 38.7 % (35.5-45.6); Hemoglobin 13.1 gm/dl (11.8-15.2); Lymphocytes # (Auto) 0.9 K/mm3 (1.2-5.4); Lymphocytes % (Auto) 8.4 % (13.4-35.0); Mean Corpuscular HGB Conc 34 % (32-34); Mean Corpuscular Volume 86 fl (84-94); Monocytes # (Auto) 0.5 K/mm3 (0.0-0.8); Monocytes % (Auto) 4.6 % (0.0-7.3); Platelet Count 243 K/mm3 (140-440); Red Blood Count 4.49 M/mm3 (3.65-5.03); Red Cell Distribution Width 15.3 % (13.2-15.2)
[2020-06-01 14:20] LABS: Calcium 8.5 mg/dL (8.4-10.2)
--- NOTE | 2020-06-01 17:03 | Progress Note ---
Assessment and Plan Assessment and plan: 54 year old male presenting with shortness of breath, with hypoxia on admission, saturation in the low 80s. PMHx of HTN PCP- Calin alicia Home med: ANTONIO, METOPROLOL, LORSTAN, HYDRALAZIN AND AMYLODPIN CXR: Bilateral lobar inflitrates- My own read Acute Hypoxic Respiratory failure 2019 novel sampson virus Pneumonia Bilateral penumonia KEITH WITH VASOMOTOR NEPHROPATHY ON CKD Stage 3 HTN DM with hyperglycemia Plan Continue support care Pulmonary and ID consult in put noted Started on steroids Remdesivir precluded due to renal function Start on Abx Labs pending Blood cultures Aspiration precautions DVT/GI prophy Plan discussed with the patient The high probability of a clinically significant, sudden or life threatening deterioration of the [pulmonary] system(s) required my full and direct attention, intervention and personal management. The aggregate critical care time was [60] minutes. This time is in addition to time spent performing reported procedures but includes the following: [x] Data Review and interpretation [x] Patient assessment and monitoring of vital signs [x] Documentation [x] Medication orders and management History Interval history: Patient seen and examined still on high flow due to persist hypoxia but no other complaints Hospitalist Physical - Physical exam Narrative exam: VITAL SIGNS: Reviewed. GENERAL: The patient appears normally developed, obese vital signs as documented. HEAD: No signs of head trauma. EYES: Pupils are equal. Extraocular motions intact. EARS: Hearing grossly intact. MOUTH: Oropharynx is normal. NECK: No adenopathy, no JVD. CHEST: Rapid respiratory rate chest with diminished breath sounds bilaterally. No wheezes, rales, or rhonchi. CARDIAC: Regular rate and rhythm. S1 and S2, without murmurs, gallops, or rubs. VASCULAR: No Edema. Peripheral pulses normal and equal in all extremities. ABDOMEN: Soft, non tender and non distended. No rebound or guarding, and no masses palpated. Bowel Sounds normal. MUSCULOSKELETAL: Good range of motion of all major joints. Extremities without clubbing, cyanosis or edema. NEUROLOGIC EXAM: Awake but lethargic and oriented x 3 No focal sensory or strength deficits. Speech normal. Follows commands. PSYCHIATRIC: Mood normal. SKIN: detail exam as documented in skin assessment - Constitutional Vitals: Temp Pulse Resp BP Pulse Ox 99.4 F 86 20 120/79 90 05/31/20 13:07 06/01/20 15:00 06/01/20 15:00 06/01/20 15:00 06/01/20 15:35 HEART Score - HEART Score Troponin: Troponin T 0.021 ng/mL (0.00-0.029) 05/31/20 15:23 Results - Labs CBC & Chem 7: 06/02/20 04:55 06/02/20 04:55 Labs: Laboratory Last Values WBC 10.7 K/mm3 (4.5-11.0) 06/01/20 13:41 RBC 4.49 M/mm3 (3.65-5.03) 06/01/20 13:41 Hgb 13.1 gm/dl (11.8-15.2) 06/01/20 13:41 Hct 38.7 % (35.5-45.6) 06/01/20 13:41 MCV 86 fl (84-94) 06/01/20 13:41 MCH 29 pg (28-32) 06/01/20 13:41 MCHC 34 % (32-34) 06/01/20 13:41 RDW 15.3 % (13.2-15.2) H 06/01/20 13:41 Plt Count 243 K/mm3 (140-440) 06/01/20 13:41 Lymph % (Auto) 8.4 % (13.4-35.0) L 06/01/20 13:41 [place] % (Auto) 4.6 % (0.0-7.3) 06/01/20 13:41 Eos % (Auto) 0.0 % (0.0-4.3) 06/01/20 13:41 Baso % (Auto) 0.1 % (0.0-1.8) 06/01/20 13:41 Lymph # 0.9 K/mm3 (1.2-5.4) L 06/01/20 13:41 [place] # 0.5 K/mm3 (0.0-0.8) 06/01/20 13:41 Eos # 0.0 K/mm3 (0.0-0.4) 06/01/20 13:41 Baso # 0.0 K/mm3 (0.0-0.1) 06/01/20 13:41 Seg Neutrophils % 86.9 % (40.0-70.0) H 06/01/20 13:41 Seg Neutrophils # 9.3 K/mm3 (1.8-7.7) H 06/01/20 13:41 PT 11.5 Sec. (12.2-14.9) L 05/31/20 15:23 INR 0.83 (0.87-1.13) L 05/31/20 15:23 D-Dimer 738.85 ng/mlDDU (0-234) H 05/31/20 16:49 Sodium 136 mmol/L (137-145) L 06/01/20 13:41 Potassium 5.5 mmol/L (3.6-5.0) H 06/01/20 13:41 Chloride 99.1 mmol/L (98-107) 06/01/20 13:41 Carbon Dioxide 20 mmol/L (22-30) L 06/01/20 13:41 Anion Gap 22 mmol/L 06/01/20 13:41 BUN 42 mg/dL (9-20) H 06/01/20 13:41 Creatinine 3.5 mg/dL (0.8-1.3) H 06/01/20 13:41 Estimated GFR 22 ml/min 06/01/20 13:41 BUN/Creatinine Ratio 12 % 06/01/20 13:41 Glucose 278 mg/dL (75-100) H 06/01/20 13:41 POC Glucose 372 (70-105) H 06/01/20 16:10 Hemoglobin A1c 8.5 % (4-6) H 05/31/20 16:49 Calcium 8.5 mg/dL (8.4-10.2) 06/01/20 13:41 Magnesium 2.20 mg/dL (1.7-2.3) 05/31/20 15:23 Ferritin 599.0 ng/mL (30.0-300.0) H 05/31/20 16:49 Total Bilirubin 0.40 mg/dL (0.1-1.2) 05/31/20 15:23 AST 35 units/L (5-40) 05/31/20 15:23 ALT 33 units/L (7-56) 05/31/20 15:23 Alkaline Phosphatase 71 units/L (35-129) 05/31/20 15:23 Lactate Dehydrogenase 409 units/L (91-180) H 05/31/20 16:49 Total Creatine Kinase 325 units/L (55-170) H 05/31/20 15:23 Troponin T 0.021 ng/mL (0.00-0.029) 05/31/20 15:23 C-Reactive Protein 14.00 mg/dL (0.00-1.30) H 05/31/20 16:49 NT-Pro-B Natriuret Pep 111.3 pg/mL (0-900) 06/01/20 13:41 Total Protein 8.0 g/dL (6.3-8.2) 05/31/20 15:23 Albumin 3.3 g/dL (3.9-5) L 05/31/20 15:23 Albumin/Globulin Ratio 0.7 % 05/31/20 15:23 Procalcitonin 0.33 ng/mL (<0.15) 05/31/20 16:49 Coronavirus (PCR) Positive (Negative) A 06/01/20 Unknown Microbiology: Microbiology 05/31/20 15:23 Peripheral/Venous Blood Culture - Preliminary NO GROWTH AFTER 24 HOURS 05/31/20 15:26 Peripheral/Venous Blood Culture - Preliminary NO GROWTH AFTER 24 HOURS Hess/IV: IV Catheter Type [Right INT / Saline Lock Antecubital] Active Medications - Current Medications Current Medications: Generic Name Dose Route Start Last Admin Trade Name Freq PRN Reason Stop Dose Admin Acetaminophen 650 mg 05/31/20 15:49 Tylenol PO Q6H PRN Pain MILD(1-3)/Fever >100.5/LEBRON Albuterol 2.5 mg 05/31/20 15:49 Proventil IH Q3HRT PRN Shortness Of Breath Amlodipine Besylate 10 mg 06/01/20 10:00 06/01/20 10:21 Amlodipine PO 10 mg DAILY CHERI Administration Atorvastatin Calcium 20 mg 05/31/20 22:00 06/01/20 00:28 Lipitor PO Not Given QHS CHERI Bisacodyl 10 mg 05/31/20 15:57 Dulcolax [place] QDAY PRN Constipation unrelieved by MOM Chlorpromazine HCl 10 mg 05/31/20 15:57 Thorazine PO Q6H PRN Hiccups Dexamethasone 6 mg 06/01/20 10:00 06/01/20 10:21 Decadron PO 06/11/20 09:59 6 mg DAILY CHERI Administration Dextrose 50 ml 05/31/20 15:59 D50w (25gm) Syringe IV Q30MIN PRN Hypoglycemia Protocol Enoxaparin Sodium 30 mg 06/01/20 10:00 06/01/20 10:18 Enoxaparin SUB-Q 30 mg QDAY CHERI Administration Azithromycin 500 mg/ Sodium 250 mls @ 250 mls/hr 06/01/20 10:00 06/01/20 12:34 Chloride IV 250 mls/hr Q24HR CHERI Administration Protocol Ceftriaxone Sodium 2 gm in 100 mls @ 200 mls/hr 06/01/20 10:00 06/01/20 10:17 Rocephin/Ns 2 Gm/100 Ml IV 200 mls/hr Q24HR CHERI Administration Protocol Insulin Glargine 100 units 05/31/20 22:00 06/01/20 00:27 Lantus SUB-Q Not Given QHS [facility] Insulin Human Lispro 0 unit 05/31/20 16:00 06/01/20 16:12 Humalog SUB-Q 10 unit Q6H CHERI Administration Protocol Naloxone HCl 0.1 mg 05/31/20 15:49 Naloxone IV Q2MIN PRN Res Rate </= 8 or 02 SAT < 92% Ondansetron HCl 4 mg 05/31/20 15:57 Zofran IV Q8H PRN N/V unrelieved by Reglan Oxycodone/Acetaminophen 1 tab 05/31/20 15:49 06/01/20 10:19 Percocet 5/325 PO 1 tab Q6H PRN Administration Pain, Moderate (4-6) Sodium Chloride 10 ml 05/31/20 22:00 06/01/20 10:30 Sodium Chloride Flush Syringe 10 Ml IV 10 ml BID CHERI Administration Sodium Chloride 10 ml 05/31/20 15:49 Sodium Chloride Flush Syringe 10 Ml IV PRN PRN LINE FLUSH Tizanidine HCl 4 mg 05/31/20 15:57 Zanaflex PO Q8H PRN Muscle Spasm Nutrition/Malnutrition Assess - Dietary Evaluation Nutrition/Malnutrition Findings: Nutrition Notes Start: 06/01/20 10:42 Freq: Status: Active Protocol: Document 06/01/20 10:42 LP (Rec: 06/01/20 10:45 LP [id number]) Nutrition Notes Need for Assessment generated from: MD Order Initial or Follow up Brief Note Current Diagnosis CKD(stage I-IV),Diabetes, Hypertension,Stroke Other Pertinent Diagnosis Suspected COVID-19 Current Diet Renal Labs/Tests A1c 8.5 Subjective/Other Information Consult for diet education. Pt in ED. Nutrition Intervention Follow-Up By: 06/03/20 Additional Comments Follow for diet education
[2020-06-01 17:06] LABS: Creatinine,Urine 161.6 mg/dL (0.1-20.0)
[2020-06-01 17:08] LABS: Bilirubin,Urine NEG (Negative); Blood,Urine MOD (Negative); Color,Urine Yellow (Yellow); Mucus,Urine FEW /HPF; Urobilinogen,Urine < 2.0 mg/dL (<2.0)
[2020-06-01 17:13] LABS: Protein,Urine >500 mg/dL (Negative)
[2020-06-01] MEDS ORDERED: VANCOMYCIN 1,500 MG in SODIUM CHLORIDE 0.9% 500 ML 500 ML IV SCH (18:00)
[2020-06-02] MEDS: INSULIN GLARGINE 100 UNITS/ML SUB-Q SCH (00:22)
[2020-06-02] MEDS: INSULIN LISPRO 100 UNIT/ML VIAL 3 mL SUB-Q SCH ×4 (00:23→16:36)
[2020-06-02 06:46] LABS: Basophils % (Auto) 0.2 % (0.0-1.8); Hematocrit 42.5 % (35.5-45.6); Hemoglobin 13.9 gm/dl (11.8-15.2); Lymphocytes # (Auto) 1.1 K/mm3 (1.2-5.4); Lymphocytes % (Auto) 7.1 % (13.4-35.0); Mean Corpuscular HGB Conc 33 % (32-34); Mean Corpuscular Volume 87 fl (84-94); Monocytes # (Auto) 0.5 K/mm3 (0.0-0.8); Monocytes % (Auto) 3.4 % (0.0-7.3); Platelet Count 282 K/mm3 (140-440); Red Cell Distribution Width 15.4 % (13.2-15.2)
[2020-06-02 06:58] LABS: Albumin 3.2 g/dL (3.9-5); Calcium 9.3 mg/dL (8.4-10.2)
--- NOTE | 2020-06-02 10:21 | Progress Note ---
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 * Hyperlipidemia. * Diabetes mellitus type 2, uncontrolled. * Leukocytosis * Hyperkalemia. * mild collecting system fullness Plan: * bun/cr noted, was 2.0 in 2017 * no emergent need for [employer] today, but high risk for ATN * follow up renal us * keep MAP >65 * resp failure management per Pulm/CC * avoid nephrotoxins * k is better today * strict i/os * lytes prn * renal diet Subjective Date of service: 06/02/20 Principal diagnosis: keith Interval history: events noted, resting well in bed today Objective - Exam Narrative Exam: GENERAL: The patient appears normally developed, lethargic, obese vital signs as documented. HEAD: No signs of head trauma. EYES: Pupils are equal. Extraocular motions intact. EARS: Hearing grossly intact. MOUTH: Oropharynx is normal. NECK: No adenopathy, no JVD. CHEST: Rapid respiratory rate chest with diminished breath sounds bilaterally. No wheezes, rales, or rhonchi. CARDIAC: Regular rate and rhythm. S1 and S2, without murmurs, gallops, or ru bs. VASCULAR: No Edema. Peripheral pulses normal and equal in all extremities. ABDOMEN: Soft, non tender and non distended. No rebound or guarding, and no masses palpated. Bowel Sounds normal. MUSCULOSKELETAL: Good range of motion of all major joints. Extremities without clubbing, cyanosis or edema. NEUROLOGIC EXAM: Awake but lethargic and oriented x 3 No focal sensory or strength deficits. Speech normal. Follows commands. PSYCHIATRIC: Mood normal. SKIN: detail exam as documented in skin assessment - Vital Signs Vital signs: Vital Signs - 12hr 06/02/20 06/02/20 06/02/20 00:00 00:33 01:08 Temperature 98.5 F 99.2 F Pulse Rate 85 Respiratory 34 H Rate Blood Pressure 131/85 O2 Sat by Pulse 85 92 Oximetry 06/02/20 06/02/20 06/02/20 01:24 03:28 08:03 Temperature 97.8 F Pulse Rate Respiratory Rate Blood Pressure O2 Sat by Pulse 92 88 Oximetry - Lab 06/02/20 04:55 06/02/20 04:55 Most recent lab results Calcium 9.3 mg/dL (8.4-10.2) 06/02/20 04:55 Magnesium 2.20 mg/dL (1.7-2.3) 05/31/20 15:23 Urine Creatinine 161.6 mg/dL (0.1-20.0) H 06/01/20 Unknown Urine Sodium 47 mmol/L 06/01/20 Unknown Medications & Allergies - Medications Allergies/Adverse Reactions: Allergies lisinopril Allergy (Verified 05/31/20 13:03) Angioedema Penicillins Allergy (Verified 05/31/20 13:03) Hives Home Medications: Home Medications Medication Instructions Recorded Confirmed Last Taken Type Acetaminophen [Acetaminophen TAB] 650 mg PO Q4H PRN #30 tablet 02/15/17 Unknown Rx AtorvaSTATin [Lipitor] 20 mg PO QHS tablet 02/15/17 Unknown Rx Cipro/Dexameth 0.3/0.1% [Ciprodex 4 drops AU BID bottle 02/15/17 Unknown Rx OTIC] Detemir (Nf) [Levemir (Nf)] 100 units SUB-Q QHS units 02/15/17 Unknown Rx Dextrose 50% in Water [D50W (25GM) 50 ml IV PRN PRN #30 syringe 02/15/17 Unknown Rx Syringe] Enoxaparin 40 mg SUB-Q QDAY syringe 02/15/17 Unknown Rx Lipase/Protease/Amylase [Pancreaze 1 each FEEDTUBE PRN PRN #30 capsule 02/15/[address] 10,500 Unit] Metoprolol [Lopressor TAB] 25 mg PO BID tablet 02/15/17 Unknown Rx Metoprolol [Lopressor TAB] 25 mg PO BID #60 tablet 02/15/17 Unknown Rx Ondansetron [Zofran INJ] 4 mg IV Q8H PRN #30 vial 02/15/17 Unknown Rx Prednisone [predniSONE 5 mg (6-Day 5 mg PO .TAPER #1 tab.ds.pk 02/15/17 Unknown Rx Pack, 21 Tabs)] Simple Syrup 15 ml FEEDTUBE PRN PRN #30 02/15/17 Unknown Rx oral.liqd Simple Syrup 30 ml FEEDTUBE PRN PRN #30 02/15/17 Unknown Rx oral.liqd Sodium Bicarbonate 325 mg FEEDTUBE PRN PRN #30 tablet 02/15/17 Unknown Rx amLODIPine 10 mg PO DAILY tablet 02/15/17 Unknown Rx amLODIPine [Norvasc] 10 mg PO DAILY #30 tab 02/15/17 Unknown Rx bisacodyL [Dulcolax suppos] 10 mg [place] QDAY PRN #30 supp.rect 02/15/17 Unknown Rx chlorproMAZINE [Thorazine] 10 mg PO Q6H PRN #30 tablet 02/15/17 Unknown Rx dexAMETHasone [Decadron] 6 mg IV Q6HR vial 02/15/17 Unknown Rx hydrALAZINE [Apresoline INJ] 10 mg IV Q6HR PRN #30 vial 02/15/17 Unknown Rx oxyCODONE /ACETAMINOPHEN [Percocet 1 tab PO Q4H PRN #30 tablet 02/15/17 Unknown Rx 5/325 mg] oxyCODONE /ACETAMINOPHEN [Percocet 1 tab PO Q4HR #30 tab 02/15/17 Unknown Rx 5/325] tiZANidine [Zanaflex 4mg TAB] 4 mg PO Q8H PRN #30 tablet 02/15/17 Unknown Rx Permethrin 5% [Acticin 5% CREAM] 1 applicatio TP ONCE #1 tube 06/11/17 Unknown Rx Azithromycin [Zithromax Z-BENJIE] 250 mg PO DAILY 1 Days tab 11/23/18 Unknown Rx Ondansetron [Zofran Odt] 4 mg PO Q8HR PRN #14 tab.rapdis 11/23/18 Unknown Rx traMADoL [Ultram 50 MG tab] 50 mg PO Q4HR PRN #14 tablet 11/23/18 Unknown Rx Active Medications: Generic Name Dose Route Start Last Admin Trade Name Freq PRN Reason Stop Dose Admin Acetaminophen 650 mg 05/31/20 15:49 Tylenol PO Q6H PRN Pain MILD(1-3)/Fever >100.5/LEBRON Albuterol 2.5 mg 05/31/20 15:49 Proventil IH Q3HRT PRN Shortness Of Breath Amlodipine Besylate 10 mg 06/01/20 10:00 06/01/20 10:21 Amlodipine PO 10 mg DAILY CHERI Administration Atorvastatin Calcium 20 mg 05/31/20 22:00 06/02/20 00:26 Lipitor PO 20 mg QHS CHERI Administration Azithromycin 500 mg 06/03/20 10:00 Zithromax PO QDAY CHERI Bisacodyl 10 mg 05/31/20 15:57 Dulcolax [place] QDAY PRN Constipation unrelieved by MOM Chlorpromazine HCl 10 mg 05/31/20 15:57 Thorazine PO Q6H PRN Hiccups Dexamethasone 6 mg 06/01/20 10:00 06/01/20 10:21 Decadron PO 06/11/20 09:59 6 mg DAILY CHERI Administration Dextrose 50 ml 05/31/20 15:59 D50w (25gm) Syringe IV Q30MIN PRN Hypoglycemia Protocol Enoxaparin Sodium 30 mg 06/01/20 10:00 06/01/20 10:18 Enoxaparin SUB-Q 30 mg QDAY CHERI Administration Azithromycin 500 mg/ Sodium 250 mls @ 250 mls/hr 06/01/20 10:00 06/01/20 12:34 Chloride IV 06/02/20 23:59 250 mls/hr Q24HR CHERI Administration Protocol Ceftriaxone Sodium 2 gm in 100 mls @ 200 mls/hr 06/01/20 10:00 06/01/20 10:17 Rocephin/Ns 2 Gm/100 Ml IV 200 mls/hr Q24HR CHERI Administration Protocol Insulin Glargine 100 units 05/31/20 22:00 06/02/20 00:22 Lantus SUB-Q 100 units QHS CHERI Administration Insulin Human Lispro 0 unit 05/31/20 16:00 06/02/20 05:32 Humalog SUB-Q 6 unit Q6H CHERI Administration Protocol Naloxone HCl 0.1 mg 05/31/20 15:49 Naloxone IV Q2MIN PRN Res Rate </= 8 or 02 SAT < 92% Ondansetron HCl 4 mg 05/31/20 15:57 Zofran IV Q8H PRN N/V unrelieved by Reglan Oxycodone/Acetaminophen 1 tab 05/31/20 15:49 06/01/20 10:19 Percocet 5/325 PO 1 tab Q6H PRN Administration Pain, Moderate (4-6) Sodium Chloride 10 ml 05/31/20 22:00 06/02/20 05:38 Sodium Chloride Flush Syringe 10 Ml IV 10 ml BID CHERI Administration Sodium Chloride 10 ml 05/31/20 15:49 Sodium Chloride Flush Syringe 10 Ml IV PRN PRN LINE FLUSH Tizanidine HCl 4 mg 05/31/20 15:57 Zanaflex PO Q8H PRN Muscle Spasm
[2020-06-02] MEDS: amLODIPine 10 MG TAB PO SCH (10:44)
[2020-06-02] MEDS: DEXAMETHASONE 4 MG TAB PO SCH (10:44)
[2020-06-02] MEDS: cefTRIAXone/NS 2 GM/100 ML 2 GM/100 ML BAG IV SCH (10:45)
[2020-06-02] MEDS: ENOXAPARIN 30 MG/0.3 ML INJ SUB-Q SCH (10:46)
[2020-06-02] MEDS: AZITHROMYCIN 500 MG in SODIUM CHLORIDE 0.9% 250ML 250 ML IV SCH (10:46)
--- NOTE | 2020-06-02 12:34 | Progress Note ---
Assessment and Plan Cultures: Coronavirus PCR:positive Blood culture: no growth A/P: 54-year-old male with diabetes, CKD, prior CVA, obesity was admitted to the hospital with complaints of cough, shortness of breath along with fatigue and malaise: #Severe COVID pneumonia: CRP 14.0, LDH 409, ferritin 599, Ddimer 738. #Acute hypoxic respiratory failure: on high flow. #KEITH on CKD Recs: Continue IV/PO Dexamethasone 6 mg daily x 10 days Stop abx - procalcitonin low/renal failure can affect level Not a candidate for Remdesivir due to renal failure trend ferritin, LDH, d-dimer, CRP every 2-3 days for risk stratification and to assess disease progression prophylactic anticoagulation based on d-dimer Yadira Lara MD [facility], [facility] ([facility]) M: [phone] Subjective Date of service: 06/02/20 Principal diagnosis: keith Interval history: Remains on HFNC no fever Objective - Exam Narrative Exam: Physical Exam (reviewed in chart due to PPE conservation and minimize risk of transmission) Constitutional: limited due to PPE conservation strategy Head, Ears, Nose: limited due to PPE conservation strategy Eyes: limited due to PPE conservation strategy Neck: intubated limited due to PPE conservation strategy Oral: limited due to PPE conservation strategy Cardiovascular: limited due to PPE conservation strategy Respiratory: limited due to PPE conservation strategy GI: limited due to PPE conservation strategy Musculoskeletal: limited due to PPE conservation strategy Skin: limited due to PPE conservation strategy Hem/Lymphatic: limited due to PPE conservation strategy Psych: limited due to PPE conservation strategy Neurological: limited due to PPE conservation strategy - Constitutional Vitals: Vital Signs Temp Pulse Resp BP Pulse Ox 98.4 F 85 34 H 131/85 88 06/02/20 11:00 06/02/20 12:00 06/02/20 11:00 06/02/20 11:00 06/02/20 11:00 Temperature -Last 24 Hours Temperature 98.4 F Temperature 98.4 F Temperature 97.8 F Temperature 99.2 F Temperature 98.5 F - Labs CBC & Chem 7: 06/02/20 04:55 06/02/20 04:55 Labs: Abnormal lab results 06/01/20 06/01/20 06/01/20 Range/Units 13:41 13:41 16:10 WBC (4.5-11.0) K/mm3 RDW 15.3 H (13.2-15.2) % Lymph % (Auto) 8.4 L (13.4-35.0) % Lymph # 0.9 L (1.2-5.4) K/mm3 Seg Neutrophils % 86.9 H (40.0-70.0) % Seg Neutrophils # 9.3 H (1.8-7.7) K/mm3 Sodium 136 L (137-145) mmol/L Potassium 5.5 H (3.6-5.0) mmol/L Chloride (98-107) mmol/L Carbon Dioxide 20 L (22-30) mmol/L BUN 42 H (9-20) mg/dL Creatinine 3.5 H (0.8-1.3) mg/dL Glucose 278 H (75-100) mg/dL POC Glucose 372 H (70-105) Albumin (3.9-5) g/dL Urine Creatinine (0.1-20.0) mg/dL Coronavirus (PCR) (Negative) 06/01/20 06/01/20 06/01/20 Range/Units 23:12 Unknown Unknown WBC (4.5-11.0) K/mm3 RDW (13.2-15.2) % Lymph % (Auto) (13.4-35.0) % Lymph # (1.2-5.4) K/mm3 Seg Neutrophils % (40.0-70.0) % Seg Neutrophils # (1.8-7.7) K/mm3 Sodium (137-145) mmol/L Potassium (3.6-5.0) mmol/L Chloride (98-107) mmol/L Carbon Dioxide (22-30) mmol/L BUN (9-20) mg/dL Creatinine (0.8-1.3) mg/dL Glucose (75-100) mg/dL POC Glucose 398 H (70-105) Albumin (3.9-5) g/dL Urine Creatinine 161.6 H (0.1-20.0) mg/dL Coronavirus (PCR) Positive A (Negative) 06/02/20 06/02/20 06/02/20 Range/Units 04:55 04:55 05:33 WBC 14.7 H (4.5-11.0) K/mm3 RDW 15.4 H (13.2-15.2) % Lymph % (Auto) 7.1 L (13.4-35.0) % Lymph # 1.1 L (1.2-5.4) K/mm3 Seg Neutrophils % 89.3 H (40.0-70.0) % Seg Neutrophils # 13.2 H (1.8-7.7) K/mm3 Sodium 136 L (137-145) mmol/L Potassium (3.6-5.0) mmol/L Chloride 97.2 L (98-107) mmol/L Carbon Dioxide 21 L (22-30) mmol/L BUN 47 H (9-20) mg/dL Creatinine 3.5 H (0.8-1.3) mg/dL Glucose 244 H (75-100) mg/dL POC Glucose 262 H (70-105) Albumin 3.2 L (3.9-5) g/dL Urine Creatinine (0.1-20.0) mg/dL Coronavirus (PCR) (Negative)
--- NOTE | 2020-06-02 14:24 | Progress Note ---
Assessment and Plan 54 y/o male with acute respiratory failure, concern for COVID 19 pneumonia and possibly acute renal failure 1. Wean FiO2 for sats >88% 2. Agree with steroids as ordered by ID, unfortunately not a candidate for remdesivir given renal function 3. Suggest consent for convaslescent plasma 4. Prone as much as tolerated during the day and sleep prone at night 5. Follow up renal recs, will ask them about HD to see if this will help O2 requirement as I am not able to diurese. Also does not have a hoskins. 6. overall prognosis is guarded, COVID results are not back yet, but renal failure and COVID have been shows to see worse clinical outcomes. Subjective Date of service: 06/02/20 Principal diagnosis: talia Interval history: Remains on HFC at 100% and 40 liters. Sats marginal. Occassionally will need NRB. Objective Vital Signs - 12hr 06/02/20 06/02/20 06/02/20 03:28 04:21 04:31 Temperature 97.8 F Pulse Rate 86 87 Respiratory 15 24 Rate Blood Pressure 160/43 160/43 O2 Sat by Pulse 91 87 Oximetry 06/02/20 06/02/20 06/02/20 04:41 04:51 05:01 Temperature Pulse Rate 91 H 86 85 Respiratory 12 40 H 20 Rate Blood Pressure 145/43 145/43 145/43 O2 Sat by Pulse 92 87 92 Oximetry 06/02/20 06/02/20 06/02/20 05:11 05:21 05:31 Temperature Pulse Rate 82 81 81 Respiratory 32 H 7 L 33 H Rate Blood Pressure 160/43 160/43 160/43 O2 Sat by Pulse 90 90 91 Oximetry 06/02/20 06/02/20 06/02/20 05:41 05:51 06:00 Temperature Pulse Rate 83 81 81 Respiratory 23 17 33 H Rate Blood Pressure 123/76 123/76 127/75 O2 Sat by Pulse 90 91 92 Oximetry 06/02/20 06/02/20 06/02/20 06:11 06:21 06:31 Temperature Pulse Rate 81 79 78 Respiratory 37 H 36 H 38 H Rate Blood Pressure 127/75 127/75 127/75 O2 Sat by Pulse 89 92 90 Oximetry 06/02/20 06/02/20 06/02/20 06:41 06:51 07:00 Temperature Pulse Rate 80 80 78 Respiratory 36 H 41 H 40 H Rate Blood Pressure 123/76 123/76 128/70 O2 Sat by Pulse 91 92 91 Oximetry 06/02/20 06/02/20 06/02/20 07:11 07:21 07:31 Temperature Pulse Rate 80 79 80 Respiratory 39 H 38 H 39 H Rate Blood Pressure 128/70 128/70 128/70 O2 Sat by Pulse 91 91 92 Oximetry 06/02/20 06/02/20 06/02/20 07:41 07:51 08:00 Temperature 98.4 F Pulse Rate 79 80 80 Respiratory 40 H 36 H 40 H Rate Blood Pressure 127/75 127/75 134/69 O2 Sat by Pulse 87 92 88 Oximetry 06/02/20 06/02/20 06/02/20 08:03 08:11 08:21 Temperature Pulse Rate 78 81 Respiratory 39 H 44 H Rate Blood Pressure 128/70 128/70 O2 Sat by Pulse 88 90 89 Oximetry 06/02/20 06/02/20 06/02/20 08:31 08:41 08:51 Temperature Pulse Rate 80 80 81 Respiratory 40 H 32 H 38 H Rate Blood Pressure 128/70 128/70 128/70 O2 Sat by Pulse 91 90 88 Oximetry 06/02/20 06/02/20 06/02/20 09:01 09:11 09:21 Temperature Pulse Rate 81 79 83 Respiratory 14 36 H 26 H Rate Blood Pressure 155/54 155/54 155/54 O2 Sat by Pulse 86 86 87 Oximetry 06/02/20 06/02/20 06/02/20 09:31 09:41 09:51 Temperature Pulse Rate 74 89 80 Respiratory 15 16 40 H Rate Blood Pressure 155/54 155/54 155/54 O2 Sat by Pulse 95 86 84 Oximetry 06/02/20 06/02/20 06/02/20 10:00 10:11 10:21 Temperature Pulse Rate 80 82 76 Respiratory 39 H 36 H 42 H Rate Blood Pressure 162/99 162/99 162/99 O2 Sat by Pulse 87 86 91 Oximetry 06/02/20 06/02/20 06/02/20 10:31 10:41 10:51 Temperature Pulse Rate 80 79 81 Respiratory 25 H 46 H 21 Rate Blood Pressure 162/99 162/99 162/99 O2 Sat by Pulse 90 87 80 L Oximetry 08/3006/02/20 06/02/20 11:00 11:11 11:21 Temperature 98.4 F Pulse Rate 81 79 79 Respiratory 33 H 35 H 37 H Rate Blood Pressure 172/104 172/104 172/104 O2 Sat by Pulse 88 88 89 Oximetry 06/02/20 06/02/20 06/02/20 11:31 11:41 11:51 Temperature Pulse Rate 80 80 82 Respiratory 39 H 34 H 41 H Rate Blood Pressure 172/104 172/104 172/104 O2 Sat by Pulse 89 89 88 Oximetry 06/02/20 06/02/20 06/02/20 12:00 12:11 12:21 Temperature Pulse Rate 80 82 85 Respiratory 40 H 39 H 27 H Rate Blood Pressure 164/94 164/94 164/94 O2 Sat by Pulse 86 85 82 L Oximetry 06/02/20 12:31 Temperature Pulse Rate 82 Respiratory 36 H Rate Blood Pressure 164/94 O2 Sat by Pulse Oximetry CBC and BMP: 06/02/20 04:55 06/02/20 04:55 ABG, PT/INR, D-dimer: PT/INR, D-dimer PT 11.5 Sec. (12.2-14.9) L 05/31/20 15:23 INR 0.83 (0.87-1.13) L 05/31/20 15:23 D-Dimer 738.85 ng/mlDDU (0-234) H 05/31/20 16:49 Abnormal lab findings: Abnormal Labs 05/31/20 05/31/20 05/31/20 15:23 15:23 15:23 WBC RDW Lymph % (Auto) Lymph # Seg Neutrophils % Seg Neutrophils # PT INR D-Dimer Sodium Potassium Chloride Carbon Dioxide BUN Creatinine Glucose 280 H POC Glucose Hemoglobin A1c Ferritin 583.4 H Lactate Dehydrogenase 392 H Total Creatine Kinase 325 H C-Reactive Protein 14.30 H Albumin Urine Creatinine Coronavirus (PCR) 05/31/20 05/31/20 05/31/20 15:23 15:23 15:23 WBC RDW 15.7 H Lymph % (Auto) 12.9 L Lymph # 1.0 L Seg Neutrophils % 81.7 H Seg Neutrophils # PT 11.5 L INR 0.83 L D-Dimer Sodium 134 L Potassium Chloride 97.2 L Carbon Dioxide BUN 28 H Creatinine 3.0 H Glucose 279 H POC Glucose Hemoglobin A1c Ferritin Lactate Dehydrogenase Total Creatine Kinase C-Reactive Protein Albumin 3.3 L Urine Creatinine Coronavirus (PCR) 05/31/20 05/31/20 05/31/20 16:47 16:49 16:49 WBC RDW Lymph % (Auto) Lymph # Seg Neutrophils % Seg Neutrophils # PT INR D-Dimer 738.85 H Sodium Potassium Chloride Carbon Dioxide BUN Creatinine Glucose 258 H POC Glucose 239 H Hemoglobin A1c Ferritin Lactate Dehydrogenase 409 H Total Creatine Kinase C-Reactive Protein 14.00 H Albumin Urine Creatinine Coronavirus (PCR) 05/31/20 05/31/20 06/01/20 16:49 16:49 10:15 WBC RDW Lymph % (Auto) Lymph # Seg Neutrophils % Seg Neutrophils # PT INR D-Dimer Sodium Potassium Chloride Carbon Dioxide BUN Creatinine Glucose POC Glucose 277 H Hemoglobin A1c 8.5 H Ferritin 599.0 H Lactate Dehydrogenase Total Creatine Kinase C-Reactive Protein Albumin Urine Creatinine Coronavirus (PCR) 06/01/20 06/01/20 06/01/20 13:41 13:41 16:10 WBC RDW 15.3 H Lymph % (Auto) 8.4 L Lymph # 0.9 L Seg Neutrophils % 86.9 H Seg Neutrophils # 9.3 H PT INR D-Dimer Sodium 136 L Potassium 5.5 H Chloride Carbon Dioxide 20 L BUN 42 H Creatinine 3.5 H Glucose 278 H POC Glucose 372 H Hemoglobin A1c Ferritin Lactate Dehydrogenase Total Creatine Kinase C-Reactive Protein Albumin Urine Creatinine Coronavirus (PCR) 06/01/20 06/01/20 06/01/20 23:12 Unknown Unknown WBC RDW Lymph % (Auto) Lymph # Seg Neutrophils % Seg Neutrophils # PT INR D-Dimer Sodium Potassium Chloride Carbon Dioxide BUN Creatinine Glucose POC Glucose 398 H Hemoglobin A1c Ferritin Lactate Dehydrogenase Total Creatine Kinase C-Reactive Protein Albumin Urine Creatinine 161.6 H Coronavirus (PCR) Positive A 06/02/20 06/02/20 06/02/20 04:55 04:55 05:33 WBC 14.7 H RDW 15.4 H Lymph % (Auto) 7.1 L Lymph # 1.1 L Seg Neutrophils % 89.3 H Seg Neutrophils # 13.2 H PT INR D-Dimer Sodium 136 L Potassium Chloride 97.2 L Carbon Dioxide 21 L BUN 47 H Creatinine 3.5 H Glucose 244 H POC Glucose 262 H Hemoglobin A1c Ferritin Lactate Dehydrogenase Total Creatine Kinase C-Reactive Protein Albumin 3.2 L Urine Creatinine Coronavirus (PCR)
--- NOTE | 2020-06-02 14:36 | Progress Note ---
Assessment and Plan Assessment and plan: 54 year old male presenting with shortness of breath, with hypoxia on admission, saturation in the low 80s. PMHx of HTN PCP- Calin alicia Home med: ANTONIO, METOPROLOL, LORSTAN, HYDRALAZIN AND AMYLODPIN CXR: Bilateral lobar inflitrates- My own read 06/02: Continue current management. Patient on high flow. If can tolerate prone recommend prone position during hours of sleep. Acute Hypoxic Respiratory failure 2019 novel sampson virus Pneumonia Bilateral penumonia KEITH WITH VASOMOTOR NEPHROPATHY ON CKD Stage 3 HTN DM with hyperglycemia Plan Continue support care Pulmonary and ID consult in put noted Started on steroids Remdesivir precluded due to renal function Start on Abx Labs pending Blood cultures Aspiration precautions DVT/GI prophy Plan discussed with the patient The high probability of a clinically significant, sudden or life threatening deterioration of the [pulmonary] system(s) required my full and direct attention, intervention and personal management. The aggregate critical care time was [60] minutes. This time is in addition to time spent performing reported procedures but includes the following: [x] Data Review and interpretation [x] Patient assessment and monitoring of vital signs [x] Documentation [x] Medication orders and management History Interval history: Patient seen and examined still on high flow due to persist hypoxia but no other complaints Hospitalist Physical - Physical exam Narrative exam: VITAL SIGNS: Reviewed. GENERAL: The patient appears normally developed, obese vital signs as documented. HEAD: No signs of head trauma. EYES: Pupils are equal. Extraocular motions intact. EARS: Hearing grossly intact. MOUTH: Oropharynx is normal. NECK: No adenopathy, no JVD. CHEST: Rapid respiratory rate chest with diminished breath sounds bilaterally. No wheezes, rales, or rhonchi. CARDIAC: Regular rate and rhythm. S1 and S2, without murmurs, gallops, or rubs. VASCULAR: No Edema. Peripheral pulses normal and equal in all extremities. ABDOMEN: Soft, non tender and non distended. No rebound or guarding, and no masses palpated. Bowel Sounds normal. MUSCULOSKELETAL: Good range of motion of all major joints. Extremities without clubbing, cyanosis or edema. NEUROLOGIC EXAM: Awake but lethargic and oriented x 3 No focal sensory or strength deficits. Speech normal. Follows commands. PSYCHIATRIC: Mood normal. SKIN: detail exam as documented in skin assessment - Constitutional Vitals: Temp Pulse Resp BP Pulse Ox 98.4 F 82 36 H 164/94 82 L 06/02/20 11:00 06/02/20 12:31 06/02/20 12:31 06/02/20 12:31 06/02/20 12:21 HEART Score - HEART Score Troponin: Troponin T 0.021 ng/mL (0.00-0.029) 05/31/20 15:23 Results - Labs CBC & Chem 7: 06/03/20 05:18 06/03/20 05:18 Labs: Laboratory Last Values WBC 14.7 K/mm3 (4.5-11.0) H 06/02/20 04:55 RBC 4.90 M/mm3 (3.65-5.03) 06/02/20 04:55 Hgb 13.9 gm/dl (11.8-15.2) 06/02/20 04:55 Hct 42.5 % (35.5-45.6) 06/02/20 04:55 MCV 87 fl (84-94) 06/02/20 04:55 MCH 28 pg (28-32) 06/02/20 04:55 MCHC 33 % (32-34) 06/02/20 04:55 RDW 15.4 % (13.2-15.2) H 06/02/20 04:55 Plt Count 282 K/mm3 (140-440) 06/02/20 04:55 Lymph % (Auto) 7.1 % (13.4-35.0) L 06/02/20 04:55 [place] % (Auto) 3.4 % (0.0-7.3) 06/02/20 04:55 Eos % (Auto) 0.0 % (0.0-4.3) 06/02/20 04:55 Baso % (Auto) 0.2 % (0.0-1.8) 06/02/20 04:55 Lymph # 1.1 K/mm3 (1.2-5.4) L 06/02/20 04:55 [place] # 0.5 K/mm3 (0.0-0.8) 06/02/20 04:55 Eos # 0.0 K/mm3 (0.0-0.4) 06/02/20 04:55 Baso # 0.0 K/mm3 (0.0-0.1) 06/02/20 04:55 Seg Neutrophils % 89.3 % (40.0-70.0) H 06/02/20 04:55 Seg Neutrophils # 13.2 K/mm3 (1.8-7.7) H 06/02/20 04:55 PT 11.5 Sec. (12.2-14.9) L 05/31/20 15:23 INR 0.83 (0.87-1.13) L 05/31/20 15:23 D-Dimer 738.85 ng/mlDDU (0-234) H 05/31/20 16:49 Sodium 136 mmol/L (137-145) L 06/02/20 04:55 Potassium 4.5 mmol/L (3.6-5.0) 06/02/20 04:55 Chloride 97.2 mmol/L (98-107) L 06/02/20 04:55 Carbon Dioxide 21 mmol/L (22-30) L 06/02/20 04:55 Anion Gap 22 mmol/L 06/02/20 04:55 BUN 47 mg/dL (9-20) H 06/02/20 04:55 Creatinine 3.5 mg/dL (0.8-1.3) H 06/02/20 04:55 Estimated GFR 22 ml/min 06/02/20 04:55 BUN/Creatinine Ratio 13 % 06/02/20 04:55 Glucose 244 mg/dL (75-100) H 06/02/20 04:55 POC Glucose 262 (70-105) H 06/02/20 05:33 Hemoglobin A1c 8.5 % (4-6) H 05/31/20 16:49 Calcium 9.3 mg/dL (8.4-10.2) 06/02/20 04:55 Magnesium 2.20 mg/dL (1.7-2.3) 05/31/20 15:23 Ferritin 599.0 ng/mL (30.0-300.0) H 05/31/20 16:49 Total Bilirubin 0.20 mg/dL (0.1-1.2) 06/02/20 04:55 AST 25 units/L (5-40) 06/02/20 04:55 ALT 38 units/L (7-56) 06/02/20 04:55 Alkaline Phosphatase 70 units/L (35-129) 06/02/20 04:55 Lactate Dehydrogenase 409 units/L (91-180) H 05/31/20 16:49 Total Creatine Kinase 325 units/L (55-170) H 05/31/20 15:23 Troponin T 0.021 ng/mL (0.00-0.029) 05/31/20 15:23 C-Reactive Protein 14.00 mg/dL (0.00-1.30) H 05/31/20 16:49 NT-Pro-B Natriuret Pep 111.3 pg/mL (0-900) 06/01/20 13:41 Total Protein 7.8 g/dL (6.3-8.2) 06/02/20 04:55 Albumin 3.2 g/dL (3.9-5) L 06/02/20 04:55 Albumin/Globulin Ratio 0.7 % 06/02/20 04:55 Procalcitonin 0.33 ng/mL (<0.15) 05/31/20 16:49 Urine Color Yellow (Yellow) 06/01/20 Unknown Urine Turbidity Clear (Clear) 06/01/20 Unknown Urine pH 5.0 (5.0-7.0) 06/01/20 Unknown Ur Specific [place] 1.018 (1.003-1.030) 06/01/20 Unknown Urine Protein >500 mg/dL (Negative) 06/01/20 Unknown Urine Glucose (UA) >=500 mg/dL (Negative) 06/01/20 Unknown Urine Ketones Tr mg/dL (Negative) 06/01/20 Unknown Urine Blood Mod (Negative) 06/01/20 Unknown Urine Nitrite Neg (Negative) 06/01/20 Unknown Urine Bilirubin Neg (Negative) 06/01/20 Unknown Urine Urobilinogen < 2.0 mg/dL (<2.0) 06/01/20 Unknown Ur Leukocyte Esterase Neg (Negative) 06/01/20 Unknown Urine WBC (Auto) 4.0 /HPF (0.0-6.0) 06/01/20 Unknown Urine RBC (Auto) 9.0 /HPF (0.0-6.0) 06/01/20 Unknown U Epithel Cells (Auto) 1.0 /HPF (0-13.0) 06/01/20 Unknown Urine Mucus Few /HPF 06/01/20 Unknown Urine Eosinophils None seen (None Seen) 06/01/20 Unknown Urine Creatinine 161.6 mg/dL (0.1-20.0) H 06/01/20 Unknown Urine Sodium 47 mmol/L 06/01/20 Unknown Coronavirus (PCR) Positive (Negative) A 06/01/20 Unknown Microbiology: Microbiology 05/31/20 15:23 Peripheral/Venous Blood Culture - Preliminary NO GROWTH AFTER 24 HOURS 05/31/20 15:26 Peripheral/Venous Blood Culture - Preliminary NO GROWTH AFTER 24 HOURS Hess/IV: Voiding Method Urinal IV Catheter Type [Right INT / Saline Lock Antecubital] Active Medications - Current Medications Current Medications: Generic Name Dose Route Start Last Admin Trade Name Freq PRN Reason Stop Dose Admin Acetaminophen 650 mg 05/31/20 15:49 Tylenol PO Q6H PRN Pain MILD(1-3)/Fever >100.5/LEBRON Albuterol 2.5 mg 05/31/20 15:49 Proventil IH Q3HRT PRN Shortness Of Breath Amlodipine Besylate 10 mg 06/01/20 10:00 06/02/20 10:44 Amlodipine PO 10 mg DAILY CHERI Administration Atorvastatin Calcium 20 mg 05/31/20 22:00 06/02/20 00:26 Lipitor PO 20 mg QHS CHERI Administration Azithromycin 500 mg 06/03/20 10:00 Zithromax PO QDAY CHERI Bisacodyl 10 mg 05/31/20 15:57 Dulcolax IL QDAY PRN Constipation unrelieved by MOM Chlorpromazine HCl 10 mg 05/31/20 15:57 Thorazine PO Q6H PRN Hiccups Dexamethasone 6 mg 06/01/20 10:00 06/02/20 10:44 Decadron PO 06/11/20 09:59 6 mg DAILY CHERI Administration Dextrose 50 ml 05/31/20 15:59 D50w (25gm) Syringe IV Q30MIN PRN Hypoglycemia Protocol Enoxaparin Sodium 30 mg 06/01/20 10:00 06/02/20 10:46 Enoxaparin SUB-Q 30 mg QDAY CHERI Administration Azithromycin 500 mg/ Sodium 250 mls @ 250 mls/hr 06/01/20 10:00 06/02/20 10:46 Chloride IV 06/02/20 23:59 250 mls/hr Q24HR CHERI Administration Protocol Ceftriaxone Sodium 2 gm in 100 mls @ 200 mls/hr 06/01/20 10:00 06/02/20 10:45 Rocephin/Ns 2 Gm/100 Ml IV 200 mls/hr Q24HR CHERI Administration Protocol Insulin Glargine 100 units 05/31/20 22:00 06/02/20 00:22 Lantus SUB-Q 100 units QHS CHERI Administration Insulin Human Lispro 0 unit 05/31/20 16:00 06/02/20 10:45 Humalog SUB-Q 3 unit Q6H CHERI Administration Protocol Naloxone HCl 0.1 mg 05/31/20 15:49 Naloxone IV Q2MIN PRN Res Rate </= 8 or 02 SAT < 92% Ondansetron HCl 4 mg 05/31/20 15:57 Zofran IV Q8H PRN N/V unrelieved by Reglan Oxycodone/Acetaminophen 1 tab 05/31/20 15:49 06/01/20 10:19 Percocet 5/325 PO 1 tab Q6H PRN Administration Pain, Moderate (4-6) Sodium Chloride 10 ml 05/31/20 22:00 06/02/20 10:45 Sodium Chloride Flush Syringe 10 Ml IV 10 ml BID CHERI Administration Sodium Chloride 10 ml 05/31/20 15:49 Sodium Chloride Flush Syringe 10 Ml IV PRN PRN LINE FLUSH Tizanidine HCl 4 mg 05/31/20 15:57 Zanaflex PO Q8H PRN Muscle Spasm Nutrition/Malnutrition Assess - Dietary Evaluation Nutrition/Malnutrition Findings: Nutrition Notes Start: 06/01/20 10:4 2 Freq: Status: Active Protocol: Document 06/01/20 10:42 LP (Rec: 06/01/20 10:45 LP [id number]) Nutrition Notes Need for Assessment generated from: MD Order Initial or Follow up Brief Note Current Diagnosis CKD(stage I-IV),Diabetes, Hypertension,Stroke Other Pertinent Diagnosis Suspected COVID-19 Current Diet Renal Labs/Tests A1c 8.5 Subjective/Other Information Consult for diet education. Pt in ED. Nutrition Intervention Follow-Up By: 06/03/20 Additional Comments Follow for diet education
[2020-06-03] MEDS: oxyCODONE /ACETAMINOPHEN 5-325MG TAB PO PRN (00:57)
[2020-06-03] MEDS: INSULIN GLARGINE 100 UNITS/ML SUB-Q SCH ×2 (01:00→21:19)
[2020-06-03] MEDS: INSULIN LISPRO 100 UNIT/ML VIAL 3 mL SUB-Q SCH ×4 (05:58→17:11)
[2020-06-03 06:37] LABS: Hematocrit 41.2 % (35.5-45.6); Hemoglobin 13.9 gm/dl (11.8-15.2); Mean Corpuscular HGB Conc 34 % (32-34); Mean Corpuscular Volume 86 fl (84-94); Platelet Count 311 K/mm3 (140-440); Red Blood Count 4.77 M/mm3 (3.65-5.03); Red Cell Distribution Width 15.3 % (13.2-15.2)
[2020-06-03 07:04] LABS: Albumin 2.8 g/dL (3.9-5); Calcium 9.3 mg/dL (8.4-10.2)
[2020-06-03 07:32] LABS: Basophils % (Manual) 0 % (0.0-1.8); Eosinophils % (Manual) 0 % (0.0-4.3); Platelet Estimate Consistent w Auto; Total Cells Counted 100
[2020-06-03] MEDS ORDERED: AZITHROMYCIN 250 MG TAB PO SCH (10:00)
--- NOTE | 2020-06-03 10:04 | Progress Note ---
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 * Hyperlipidemia. * Diabetes mellitus type 2, uncontrolled. * Leukocytosis * Hyperkalemia. * mild collecting system fullness Plan: * bun/cr noted, was 2.0 in 2017 * Urine output seems to be improving. 650 cc recorded this morning. Creatinine is trending down as well. 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 Fractional excretion of sodium however is 0.7%. Urine is also negative for eosinophils. * Check vasculitis work-up * Continue gentle hydration * keep MAP >65 * resp failure management per Pulm/CC * avoid nephrotoxins * k is better today * strict i/os * lytes prn * renal diet Subjective Date of service: 06/03/20 Principal diagnosis: keith Interval history: Patient is currently on a BiPAP mask with 80% FiO2. Oxygen saturation is 93%. Patient states that he is putting out more urine. Objective - Vital Signs Vital signs: Vital Signs - 12hr 06/02/20 06/02/20 06/02/20 22:01 22:11 22:21 Temperature Pulse Rate 84 80 Respiratory 28 H 41 H Rate Blood Pressure 139/83 132/75 132/75 O2 Sat by Pulse 95 91 92 Oximetry 06/02/20 06/02/20 06/02/20 22:30 22:40 22:50 Temperature Pulse Rate 84 80 84 Respiratory 37 H 35 H 33 H Rate Blood Pressure 132/75 132/75 132/75 O2 Sat by Pulse 93 92 93 Oximetry 06/02/20 06/02/20 06/02/20 23:01 23:11 23:21 Temperature Pulse Rate 84 81 78 Respiratory 25 H 30 H 11 L Rate Blood Pressure 135/82 132/75 132/75 O2 Sat by Pulse 90 88 90 Oximetry 06/02/20 06/02/20 06/02/20 23:24 23:31 23:41 Temperature 99.4 F Pulse Rate 82 81 Respiratory 28 H 21 Rate Blood Pressure 132/75 132/75 O2 Sat by Pulse 87 90 Oximetry 06/02/20 06/03/20 06/03/20 23:51 00:00 00:11 Temperature Pulse Rate 85 85 84 Respiratory 36 H 32 H 40 H Rate Blood Pressure 132/75 146/94 146/94 O2 Sat by Pulse 89 88 87 Oximetry 06/03/20 06/03/20 06/03/20 00:21 00:31 00:41 Temperature Pulse Rate 80 77 77 Respiratory 38 H 40 H 23 Rate Blood Pressure 146/94 146/94 146/94 O2 Sat by Pulse 90 89 85 Oximetry 06/03/20 06/03/20 06/03/20 00:51 01:00 01:11 Temperature Pulse Rate 82 85 87 Respiratory 41 H 42 H 29 H Rate Blood Pressure 146/94 142/90 146/94 O2 Sat by Pulse 86 86 87 Oximetry 06/03/20 06/03/20 06/03/20 01:21 01:31 01:41 Temperature Pulse Rate 86 81 81 Respiratory 40 H 38 H 37 H Rate Blood Pressure 146/94 146/94 146/94 O2 Sat by Pulse 84 84 84 Oximetry 06/03/20 06/03/20 06/03/20 01:51 02:00 02:05 Temperature Pulse Rate 82 79 79 Respiratory 26 H 19 30 H Rate Blood Pressure 146/94 142/90 140/90 O2 Sat by Pulse 89 97 93 Oximetry 06/03/20 06/03/20 06/03/20 02:11 02:21 02:31 Temperature Pulse Rate 73 76 70 Respiratory 38 H 40 H 36 H Rate Blood Pressure 140/90 140/90 140/90 O2 Sat by Pulse 93 94 91 Oximetry 06/03/20 06/03/20 06/03/20 02:41 02:50 03:01 Temperature Pulse Rate 74 73 71 Respiratory 34 H 38 H 26 H Rate Blood Pressure 140/90 140/90 128/67 O2 Sat by Pulse 91 91 91 Oximetry 06/03/20 06/03/20 06/03/20 03:11 03:21 03:31 Temperature Pulse Rate 69 68 70 Respiratory 41 H 37 H 31 H Rate Blood Pressure 140/90 140/90 140/90 O2 Sat by Pulse 96 95 95 Oximetry 06/03/20 06/03/20 06/03/20 03:37 03:41 03:51 Temperature 97.9 F Pulse Rate 72 71 Respiratory 34 H 40 H Rate Blood Pressure 128/67 128/67 O2 Sat by Pulse 96 95 Oximetry 06/03/20 06/03/20 06/03/20 04:00 04:11 04:21 Temperature Pulse Rate 68 73 72 Respiratory 32 H 33 H 43 H Rate Blood Pressure 126/67 126/67 126/67 O2 Sat by Pulse 96 96 94 Oximetry 06/03/20 06/03/20 06/03/20 04:31 04:41 04:51 Temperature Pulse Rate 70 68 70 Respiratory 39 H 38 H 39 H Rate Blood Pressure 126/67 126/67 126/67 O2 Sat by Pulse 93 94 93 Oximetry 06/03/20 06/03/20 06/03/20 05:00 05:11 05:21 Temperature Pulse Rate 70 71 71 Respiratory 38 H 39 H 39 H Rate Blood Pressure 121/63 121/63 121/63 O2 Sat by Pulse 93 91 89 Oximetry 06/03/20 06/03/20 06/03/20 05:31 05:41 05:51 Temperature Pulse Rate 71 70 71 Respiratory 35 H 29 H 38 H Rate Blood Pressure 121/63 121/63 121/63 O2 Sat by Pulse 86 89 88 Oximetry 06/03/20 06/03/20 06/03/20 06:00 06:11 06:21 Temperature Pulse Rate 70 69 68 Respiratory 39 H 42 H 32 H Rate Blood Pressure 126/76 126/76 126/76 O2 Sat by Pulse 89 88 91 Oximetry 06/03/20 06/03/20 06/03/20 06:31 06:41 06:51 Temperature Pulse Rate 69 66 69 Respiratory 37 H 39 H 39 H Rate Blood Pressure 126/76 126/76 126/76 O2 Sat by Pulse 89 90 92 Oximetry 06/03/20 06/03/20 06/03/20 07:01 07:11 07:21 Temperature Pulse Rate 82 71 72 Respiratory 23 38 H 35 H Rate Blood Pressure 151/92 151/92 151/92 O2 Sat by Pulse 91 89 90 Oximetry 06/03/20 06/03/20 06/03/20 07:31 07:41 07:51 Temperature Pulse Rate 70 71 73 Respiratory 38 H 40 H 12 Rate Blood Pressure 151/92 151/92 151/92 O2 Sat by Pulse 91 90 94 Oximetry 06/03/20 06/03/20 08:00 08:11 Temperature Pulse Rate 71 69 Respiratory 36 H 32 H Rate Blood Pressure 123/78 123/78 O2 Sat by Pulse 93 92 Oximetry - General Appearance General appearance: well-developed, well-nourished, appears stated age, other (On a BiPAP mask) EENT: PERRL, mucous membranes moist Neck: no JVD, no thyromegaly, no carotid bruit, supple Respiratory: Present: Decreased Breath Sounds (At the bases) Cardiology: regular, normal heart rate, S1S2, no murmurs Gastrointestinal: normal, normoactive bowel sounds Integumentary: other (No edema) - Lab 06/03/20 05:18 06/03/20 05:18 Most recent lab results Calcium 9.3 mg/dL (8.4-10.2) 06/03/20 05:18 Magnesium 2.20 mg/dL (1.7-2.3) 05/31/20 15:23 Urine Creatinine 161.6 mg/dL (0.1-20.0) H 06/01/20 Unknown Urine Sodium 47 mmol/L 06/01/20 Unknown Medications & Allergies - Medications Allergies/Adverse Reactions: Allergies lisinopril Allergy (Verified 05/31/20 13:03) Angioedema Penicillins Allergy (Verified 05/31/20 13:03) Hives Home Medications: Home Medications Medication Instructions Recorded Confirmed Last Taken Type Acetaminophen [Acetaminophen TAB] 650 mg PO Q4H PRN #30 tablet 02/15/17 Unknown Rx AtorvaSTATin [Lipitor] 20 mg PO QHS tablet 02/15/17 Unknown Rx Cipro/Dexameth 0.3/0.1% [Ciprodex 4 drops AU BID bottle 02/15/17 Unknown Rx OTIC] Detemir (Nf) [Levemir (Nf)] 100 units SUB-Q QHS units 02/15/17 Unknown Rx Dextrose 50% in Water [D50W (25GM) 50 ml IV PRN PRN #30 syringe 02/15/17 Unknown Rx Syringe] Enoxaparin 40 mg SUB-Q QDAY syringe 02/15/17 Unknown Rx Lipase/Protease/Amylase [Pancreaze 1 each FEEDTUBE PRN PRN #30 capsule 02/15/[address] 10,500 Unit] Metoprolol [Lopressor TAB] 25 mg PO BID tablet 02/15/17 Unknown Rx Metoprolol [Lopressor TAB] 25 mg PO BID #60 tablet 02/15/17 Unknown Rx Ondansetron [Zofran INJ] 4 mg IV Q8H PRN #30 vial 02/15/17 Unknown Rx Prednisone [predniSONE 5 mg (6-Day 5 mg PO .TAPER #1 tab.ds.pk 02/15/17 Unknown Rx Pack, 21 Tabs)] Simple Syrup 15 ml FEEDTUBE PRN PRN #30 02/15/17 Unknown Rx oral.liqd Simple Syrup 30 ml FEEDTUBE PRN PRN #30 02/15/17 Unknown Rx oral.liqd Sodium Bicarbonate 325 mg FEEDTUBE PRN PRN #30 tablet 02/15/17 Unknown Rx amLODIPine 10 mg PO DAILY tablet 02/15/17 Unknown Rx amLODIPine [Norvasc] 10 mg PO DAILY #30 tab 02/15/17 Unknown Rx bisacodyL [Dulcolax suppos] 10 mg DE QDAY PRN #30 supp.rect 02/15/17 Unknown Rx chlorproMAZINE [Thorazine] 10 mg PO Q6H PRN #30 tablet 02/15/17 Unknown Rx dexAMETHasone [Decadron] 6 mg IV Q6HR vial 02/15/17 Unknown Rx hydrALAZINE [Apresoline INJ] 10 mg IV Q6HR PRN #30 vial 02/15/17 Unknown Rx oxyCODONE /ACETAMINOPHEN [Percocet 1 tab PO Q4H PRN #30 tablet 02/15/17 Unknown Rx 5/325 mg] oxyCODONE /ACETAMINOPHEN [Percocet 1 tab PO Q4HR #30 tab 02/15/17 Unknown Rx 5/325] tiZANidine [Zanaflex 4mg TAB] 4 mg PO Q8H PRN #30 tablet 02/15/17 Unknown Rx Permethrin 5% [Acticin 5% CREAM] 1 applicatio TP ONCE #1 tube 06/11/17 Unknown Rx Azithromycin [Zithromax Z-BENJIE] 250 mg PO DAILY 1 Days tab 11/23/18 Unknown Rx Ondansetron [Zofran Odt] 4 mg PO Q8HR PRN #14 tab.rapdis 11/23/18 Unknown Rx traMADoL [Ultram 50 MG tab] 50 mg PO Q4HR PRN #14 tablet 11/23/18 Unknown Rx Active Medications: Generic Name Dose Route Start Last Admin Trade Name Freq PRN Reason Stop Dose Admin Acetaminophen 650 mg 05/31/20 15:49 Tylenol PO Q6H PRN Pain MILD(1-3)/Fever >100.5/LEBRON Albuterol 2.5 mg 05/31/20 15:49 Proventil IH Q3HRT PRN Shortness Of Breath Amlodipine Besylate 10 mg 06/01/20 10:00 06/02/20 10:44 Amlodipine PO 10 mg DAILY CHERI Administration Atorvastatin Calcium 20 mg 05/31/20 22:00 06/02/20 22:30 Lipitor PO 20 mg QHS CHERI Administration Bisacodyl 10 mg 05/31/20 15:57 Dulcolax DE QDAY PRN Constipation unrelieved by MOM Chlorpromazine HCl 10 mg 05/31/20 15:57 Thorazine PO Q6H PRN Hiccups Dexamethasone 6 mg 06/01/20 10:00 06/02/20 10:44 Decadron PO 06/11/20 09:59 6 mg DAILY CHERI Administration Dextrose 50 ml 05/31/20 15:59 D50w (25gm) Syringe IV Q30MIN PRN Hypoglycemia Protocol Enoxaparin Sodium 30 mg 06/01/20 10:00 06/02/20 10:46 Enoxaparin SUB-Q 30 mg QDAY [facility] Administration Insulin Glargine 100 units 05/31/20 22:00 06/03/20 01:00 Lantus SUB-Q 100 units QHS [facility] Administration Insulin Human Lispro 0 unit 05/31/20 16:00 06/03/20 05:58 Humalog SUB-Q 4 unit Q6H CHERI Administration Protocol Naloxone HCl 0.1 mg 05/31/20 15:49 Naloxone IV Q2MIN PRN Res Rate </= 8 or 02 SAT < 92% Ondansetron HCl 4 mg 05/31/20 15:57 Zofran IV Q8H PRN N/V unrelieved by Reglan Oxycodone/Acetaminophen 1 tab 05/31/20 15:49 06/03/20 00:57 Percocet 5/325 PO 1 tab Q6H PRN Administration Pain, Moderate (4-6) Sodium Chloride 10 ml 05/31/20 22:00 06/03/20 00:59 Sodium Chloride Flush Syringe 10 Ml IV Not Given BID CHERI Sodium Chloride 10 ml 05/31/20 15:49 Sodium Chloride Flush Syringe 10 Ml IV PRN PRN LINE FLUSH Tizanidine HCl 4 mg 05/31/20 15:57 Zanaflex PO Q8H PRN Muscle Spasm
[2020-06-03] MEDS: amLODIPine 10 MG TAB PO SCH (11:19)
[2020-06-03] MEDS: DEXAMETHASONE 4 MG TAB PO SCH (11:19)
[2020-06-03] MEDS: ENOXAPARIN 30 MG/0.3 ML INJ SUB-Q SCH (11:20)
[2020-06-03 11:53] LABS: Hepatitis B Surface Antigen Non-Reactive (Negative); Hepatitis C Virus Antibody Non-Reactive (NonReactive)
--- NOTE | 2020-06-03 12:15 | Progress Note ---
Assessment and Plan 54 y/o male with acute respiratory failure, concern for COVID 19 pneumonia and possibly acute renal failure 1. Wean FiO2 for sats >88% 2. Agree with steroids as ordered by ID, unfortunately not a candidate for remdesivir given renal function 3. Suggest consent for convaslescent plasma 4. Prone as much as tolerated during the day and sleep prone at night 5. Follow up renal recs, NO HD per them 6. overall prognosis is guarded, COVID results are not back yet, but renal failure and COVID have been shows to see worse clinical outcomes. Subjective Date of service: 06/03/20 Principal diagnosis: talia Interval history: No acute events. had to be placed on bipap last night. Stats are still in the high 80's. Objective Vital Signs - 12hr 06/03/20 06/03/20 06/03/20 00:11 00:21 00:31 Temperature Pulse Rate 84 80 77 Respiratory 40 H 38 H 40 H Rate Blood Pressure 146/94 146/94 146/94 O2 Sat by Pulse 87 90 89 Oximetry 06/03/20 06/03/20 06/03/20 00:41 00:51 01:00 Temperature Pulse Rate 77 82 85 Respiratory 23 41 H 42 H Rate Blood Pressure 146/94 146/94 142/90 O2 Sat by Pulse 85 86 86 Oximetry 06/03/20 06/03/20 06/03/20 01:11 01:21 01:31 Temperature Pulse Rate 87 86 81 Respiratory 29 H 40 H 38 H Rate Blood Pressure 146/94 146/94 146/94 O2 Sat by Pulse 87 84 84 Oximetry 06/03/20 06/03/20 06/03/20 01:41 01:51 02:00 Temperature Pulse Rate 81 82 79 Respiratory 37 H 26 H 19 Rate Blood Pressure 146/94 146/94 142/90 O2 Sat by Pulse 84 89 97 Oximetry 06/03/20 06/03/20 06/03/20 02:05 02:11 02:21 Temperature Pulse Rate 79 73 76 Respiratory 30 H 38 H 40 H Rate Blood Pressure 140/90 140/90 140/90 O2 Sat by Pulse 93 93 94 Oximetry 06/03/20 06/03/20 06/03/20 02:31 02:41 02:50 Temperature Pulse Rate 70 74 73 Respiratory 36 H 34 H 38 H Rate Blood Pressure 140/90 140/90 140/90 O2 Sat by Pulse 91 91 91 Oximetry 06/03/20 06/03/20 06/03/20 03:01 03:11 03:21 Temperature Pulse Rate 71 69 68 Respiratory 26 H 41 H 37 H Rate Blood Pressure 128/67 140/90 140/90 O2 Sat by Pulse 91 96 95 Oximetry 06/03/20 06/03/20 06/03/20 03:31 03:37 03:41 Temperature 97.9 F Pulse Rate 70 72 Respiratory 31 H 34 H Rate Blood Pressure 140/90 128/67 O2 Sat by Pulse 95 96 Oximetry 06/03/20 06/03/20 06/03/20 03:51 04:00 04:11 Temperature Pulse Rate 71 68 73 Respiratory 40 H 32 H 33 H Rate Blood Pressure 128/67 126/67 126/67 O2 Sat by Pulse 95 96 96 Oximetry 06/03/20 06/03/20 06/03/20 04:21 04:31 04:41 Temperature Pulse Rate 72 70 68 Respiratory 43 H 39 H 38 H Rate Blood Pressure 126/67 126/67 126/67 O2 Sat by Pulse 94 93 94 Oximetry 06/03/20 06/03/20 06/03/20 04:51 05:00 05:11 Temperature Pulse Rate 70 70 71 Respiratory 39 H 38 H 39 H Rate Blood Pressure 126/67 121/63 121/63 O2 Sat by Pulse 93 93 91 Oximetry 06/03/20 06/03/20 06/03/20 05:21 05:31 05:41 Temperature Pulse Rate 71 71 70 Respiratory 39 H 35 H 29 H Rate Blood Pressure 121/63 121/63 121/63 O2 Sat by Pulse 89 86 89 Oximetry 06/03/20 06/03/20 06/03/20 05:51 06:00 06:11 Temperature Pulse Rate 71 70 69 Respiratory 38 H 39 H 42 H Rate Blood Pressure 121/63 126/76 126/76 O2 Sat by Pulse 88 89 88 Oximetry 06/03/20 06/03/20 06/03/20 06:21 06:31 06:41 Temperature Pulse Rate 68 69 66 Respiratory 32 H 37 H 39 H Rate Blood Pressure 126/76 126/76 126/76 O2 Sat by Pulse 91 89 90 Oximetry 06/03/20 06/03/20 06/03/20 06:51 07:01 07:11 Temperature Pulse Rate 69 82 71 Respiratory 39 H 23 38 H Rate Blood Pressure 126/76 151/92 151/92 O2 Sat by Pulse 92 91 89 Oximetry 06/03/20 06/03/20 06/03/20 07:21 07:31 07:41 Temperature Pulse Rate 72 70 71 Respiratory 35 H 38 H 40 H Rate Blood Pressure 151/92 151/92 151/92 O2 Sat by Pulse 90 91 90 Oximetry 06/03/20 06/03/20 06/03/20 07:51 08:00 08:11 Temperature Pulse Rate 73 71 69 Respiratory 12 36 H 32 H Rate Blood Pressure 151/92 123/78 123/78 O2 Sat by Pulse 94 93 92 Oximetry 06/03/20 06/03/20 06/03/20 08:21 08:31 08:41 Temperature Pulse Rate 70 68 69 Respiratory 39 H 20 11 L Rate Blood Pressure 123/78 123/78 123/78 O2 Sat by Pulse 92 93 94 Oximetry 06/03/20 06/03/20 06/03/20 08:51 09:00 09:11 Temperature Pulse Rate 72 71 70 Respiratory 22 45 H 43 H Rate Blood Pressure 123/78 120/87 120/87 O2 Sat by Pulse 93 90 89 Oximetry 06/03/20 06/03/20 06/03/20 09:21 09:31 09:41 Temperature Pulse Rate 68 77 68 Respiratory 33 H 33 H 41 H Rate Blood Pressure 120/87 120/87 120/87 O2 Sat by Pulse 91 90 91 Oximetry 06/03/20 06/03/20 06/03/20 09:51 10:00 10:11 Temperature Pulse Rate 70 62 67 Respiratory 34 H 34 H 25 H Rate Blood Pressure 120/87 135/67 135/67 O2 Sat by Pulse 88 92 93 Oximetry 06/03/20 06/03/20 06/03/20 10:21 10:31 10:41 Temperature Pulse Rate 65 70 68 Respiratory 32 H 30 H 40 H Rate Blood Pressure 135/67 135/67 135/67 O2 Sat by Pulse 94 90 91 Oximetry 06/03/20 06/03/20 06/03/20 10:49 10:51 11:00 Temperature Pulse Rate 65 69 71 Respiratory 30 H 38 H 25 H Rate Blood Pressure 135/67 135/67 125/79 O2 Sat by Pulse 93 94 92 Oximetry 06/03/20 11:19 Temperature Pulse Rate 96 H Respiratory Rate Blood Pressure 125/79 O2 Sat by Pulse Oximetry CBC and BMP: 06/03/20 05:18 06/03/20 05:18 ABG, PT/INR, D-dimer: PT/INR, D-dimer PT 11.5 Sec. (12.2-14.9) L 05/31/20 15:23 INR 0.83 (0.87-1.13) L 05/31/20 15:23 D-Dimer 738.85 ng/mlDDU (0-234) H 05/31/20 16:49 Abnormal lab findings: Abnormal Labs 05/31/20 05/31/20 05/31/20 15:23 15:23 15:23 WBC RDW Lymph % (Auto) Lymph # Seg Neutrophils % Seg Neuts % (Manual) Lymphocytes % (Manual) Seg Neutrophils # Seg Neutrophils # Man PT INR D-Dimer Sodium Potassium Chloride Carbon Dioxide BUN Creatinine Glucose 280 H POC Glucose Hemoglobin A1c Ferritin 583.4 H Lactate Dehydrogenase 392 H Total Creatine Kinase 325 H C-Reactive Protein 14.30 H Albumin Urine Creatinine Coronavirus (PCR) 05/31/20 05/31/20 05/31/20 15:23 15:23 15:23 WBC RDW 15.7 H Lymph % (Auto) 12.9 L Lymph # 1.0 L Seg Neutrophils % 81.7 H Seg Neuts % (Manual) Lymphocytes % (Manual) Seg Neutrophils # Seg Neutrophils # Man PT 11.5 L INR 0.83 L D-Dimer Sodium 134 L Potassium Chloride 97.2 L Carbon Dioxide BUN 28 H Creatinine 3.0 H Glucose 279 H POC Glucose Hemoglobin A1c Ferritin Lactate Dehydrogenase Total Creatine Kinase C-Reactive Protein Albumin 3.3 L Urine Creatinine Coronavirus (PCR) 05/31/20 05/31/20 05/31/20 16:47 16:49 16:49 WBC RDW Lymph % (Auto) Lymph # Seg Neutrophils % Seg Neuts % (Manual) Lymphocytes % (Manual) Seg Neutrophils # Seg Neutrophils # Man PT INR D-Dimer 738.85 H Sodium Potassium Chloride Carbon Dioxide BUN Creatinine Glucose 258 H POC Glucose 239 H Hemoglobin A1c Ferritin Lactate Dehydrogenase 409 H Total Creatine Kinase C-Reactive Protein 14.00 H Albumin Urine Creatinine Coronavirus (PCR) 05/31/20 05/31/20 06/01/20 16:49 16:49 10:15 WBC RDW Lymph % (Auto) Lymph # Seg Neutrophils % Seg Neuts % (Manual) Lymphocytes % (Manual) Seg Neutrophils # Seg Neutrophils # Man PT INR D-Dimer Sodium Potassium Chloride Carbon Dioxide BUN Creatinine Glucose POC Glucose 277 H Hemoglobin A1c 8.5 H Ferritin 599.0 H Lactate Dehydrogenase Total Creatine Kinase C-Reactive Protein Albumin Urine Creatinine Coronavirus (PCR) 06/01/20 06/01/20 06/01/20 13:41 13:41 16:10 WBC RDW 15.3 H Lymph % (Auto) 8.4 L Lymph # 0.9 L Seg Neutrophils % 86.9 H Seg Neuts % (Manual) Lymphocytes % (Manual) Seg Neutrophils # 9.3 H Seg Neutrophils # Man PT INR D-Dimer Sodium 136 L Potassium 5.5 H Chloride Carbon Dioxide 20 L BUN 42 H Creatinine 3.5 H Glucose 278 H POC Glucose 372 H Hemoglobin A1c Ferritin Lactate Dehydrogenase Total Creatine Kinase C-Reactive Protein Albumin Urine Creatinine Coronavirus (PCR) 06/01/20 06/01/20 06/01/20 23:12 Unknown Unknown WBC RDW Lymph % (Auto) Lymph # Seg Neutrophils % Seg Neuts % (Manual) Lymphocytes % (Manual) Seg Neutrophils # Seg Neutrophils # Man PT INR D-Dimer Sodium Potassium Chloride Carbon Dioxide BUN Creatinine Glucose POC Glucose 398 H Hemoglobin A1c Ferritin Lactate Dehydrogenase Total Creatine Kinase C-Reactive Protein Albumin Urine Creatinine 161.6 H Coronavirus (PCR) Positive A 06/02/20 06/02/20 06/02/20 04:55 04:55 05:33 WBC 14.7 H RDW 15.4 H Lymph % (Auto) 7.1 L Lymph # 1.1 L Seg Neutrophils % 89.3 H Seg Neuts % (Manual) Lymphocytes % (Manual) Seg Neutrophils # 13.2 H Seg Neutrophils # Man PT INR D-Dimer Sodium 136 L Potassium Chloride 97.2 L Carbon Dioxide 21 L BUN 47 H Creatinine 3.5 H Glucose 244 H POC Glucose 262 H Hemoglobin A1c Ferritin Lactate Dehydrogenase Total Creatine Kinase C-Reactive Protein Albumin 3.2 L Urine Creatinine Coronavirus (PCR) 06/02/20 06/02/20 06/02/20 10:55 16:49 23:47 WBC RDW Lymph % (Auto) Lymph # Seg Neutrophils % Seg Neuts % (Manual) Lymphocytes % (Manual) Seg Neutrophils # Seg Neutrophils # Man PT INR D-Dimer Sodium Potassium Chloride Carbon Dioxide BUN Creatinine Glucose POC Glucose 160 H 214 H 292 H Hemoglobin A1c Ferritin Lactate Dehydrogenase Total Creatine Kinase C-Reactive Protein Albumin Urine Creatinine Coronavirus (PCR) 06/03/20 06/03/20 06/03/20 05:18 05:18 05:20 WBC 18.4 H RDW 15.3 H Lymph % (Auto) Lymph # Seg Neutrophils % Seg Neuts % (Manual) 91.0 H Lymphocytes % (Manual) 8.0 L Seg Neutrophils # Seg Neutrophils # Man 16.7 H PT INR D-Dimer Sodium Potassium Chloride Carbon Dioxide 20 L BUN 50 H Creatinine 3.1 H Glucose 248 H POC Glucose 208 H Hemoglobin A1c Ferritin Lactate Dehydrogenase Total Creatine Kinase C-Reactive Protein Albumin 2.8 L Urine Creatinine Coronavirus (PCR) 06/03/20 11:40 WBC RDW Lymph % (Auto) Lymph # Seg Neutrophils % Seg Neuts % (Manual) Lymphocytes % (Manual) Seg Neutrophils # Seg Neutrophils # Man PT INR D-Dimer Sodium Potassium Chloride Carbon Dioxide BUN Creatinine Glucose POC Glucose 180 H Hemoglobin A1c Ferritin Lactate Dehydrogenase Total Creatine Kinase C-Reactive Protein Albumin Urine Creatinine Coronavirus (PCR)
--- NOTE | 2020-06-03 14:11 | Consultation ---
History of Present Illness - Reason for Consult Consult date: 06/03/20 acute renal failure, chronic renal failure - History of Present Illness The patient is a 54 YO male who is well known to our service with history significant for Obesity, DM type 2, HTN, Hyperlipidemia and CKD stage 3 who pr esents to [facility] ED 05/31 with complaint of worsening shortness of breath with associated nonproductive cough, malaise and fatigue. Patient thought that he may have had positive contact with COVID-19 person. He denies any chest pain nausea vomiting but reports diarrhea. On arrival to the ED he was noted to be hypoxic with oxygen saturation in the low 80s. CXR showed bilateral patchy infiltrates. Pt tested positive for COVID-19. He reports compliance with all his medications and is followed by Dr. Calin Weldon. History is very limited at this time due to his respiratory status. Labs significant for Creat 3.1, BUN 50 and bicarb 20. Nephrology was consulted for further evaluation. Past History Past Medical History: diabetes, hypertension, hyperlipidemia, renal failure Past Surgical History: No surgical history Social history: no significant social history, full code Family history: no significant family history Medications and Allergies Allergies Allergy/AdvReac Type Severity Reaction Status Date / Time lisinopril Allergy Angioedema Verified 05/31/20 13:03 Penicillins Allergy Hives Verified 05/31/20 13:03 Home Medications Medication Instructions Recorded Confirmed Last Taken Type Acetaminophen [Acetaminophen TAB] 650 mg PO Q4H PRN #30 tablet 02/15/17 Unknown Rx AtorvaSTATin [Lipitor] 20 mg PO QHS tablet 02/15/17 Unknown Rx Cipro/Dexameth 0.3/0.1% [Ciprodex 4 drops AU BID bottle 02/15/17 Unknown Rx OTIC] Detemir (Nf) [Levemir (Nf)] 100 units SUB-Q QHS units 02/15/17 Unknown Rx Dextrose 50% in Water [D50W (25GM) 50 ml IV PRN PRN #30 syringe 02/15/17 Unknown Rx Syringe] Enoxaparin 40 mg SUB-Q QDAY syringe 02/15/17 Unknown Rx Lipase/Protease/Amylase [Pancreaze 1 each FEEDTUBE PRN PRN #30 capsule 02/15/17 Unknown Rx 10,500 Unit] Metoprolol [Lopressor TAB] 25 mg PO BID tablet 02/15/17 Unknown Rx Metoprolol [Lopressor TAB] 25 mg PO BID #60 tablet 02/15/17 Unknown Rx Ondansetron [Zofran INJ] 4 mg IV Q8H PRN #30 vial 02/15/17 Unknown Rx Prednisone [predniSONE 5 mg (6-Day 5 mg PO .TAPER #1 tab.ds.pk 02/15/17 Unknown Rx Pack, 21 Tabs)] Simple Syrup 15 ml FEEDTUBE PRN PRN #30 02/15/17 Unknown Rx oral.liqd Simple Syrup 30 ml FEEDTUBE PRN PRN #30 02/15/17 Unknown Rx oral.liqd Sodium Bicarbonate 325 mg FEEDTUBE PRN PRN #30 tablet 02/15/17 Unknown Rx amLODIPine 10 mg PO DAILY tablet 02/15/17 Unknown Rx amLODIPine [Norvasc] 10 mg PO DAILY #30 tab 02/15/17 Unknown Rx bisacodyL [Dulcolax suppos] 10 mg [place] QDAY PRN #30 supp.rect 02/15/17 Unknown Rx chlorproMAZINE [Thorazine] 10 mg PO Q6H PRN #30 tablet 02/15/17 Unknown Rx dexAMETHasone [Decadron] 6 mg IV Q6HR vial 02/15/17 Unknown Rx hydrALAZINE [Apresoline INJ] 10 mg IV Q6HR PRN #30 vial 02/15/17 Unknown Rx oxyCODONE /ACETAMINOPHEN [Percocet 1 tab PO Q4H PRN #30 tablet 02/15/17 Unknown Rx 5/325 mg] oxyCODONE /ACETAMINOPHEN [Percocet 1 tab PO Q4HR #30 tab 02/15/17 Unknown Rx 5/325] tiZANidine [Zanaflex 4mg TAB] 4 mg PO Q8H PRN #30 tablet 02/15/17 Unknown Rx Permethrin 5% [Acticin 5% CREAM] 1 applicatio TP ONCE #1 tube 06/11/17 Unknown Rx Azithromycin [Zithromax Z-BENJIE] 250 mg PO DAILY 1 Days tab 11/23/18 Unknown Rx Ondansetron [Zofran Odt] 4 mg PO Q8HR PRN #14 tab.rapdis 11/23/18 Unknown Rx traMADoL [Ultram 50 MG tab] 50 mg PO Q4HR PRN #14 tablet 11/23/18 Unknown Rx Active Meds: Active Medications Acetaminophen (Tylenol) 650 mg PO Q6H PRN PRN Reason: Pain MILD(1-3)/Fever >100.5/LEBRON Albuterol (Proventil) 2.5 mg IH Q3HRT PRN PRN Reason: Shortness Of Breath Amlodipine Besylate (Amlodipine) 10 mg PO DAILY [facility] Last Admin: 06/03/20 11:19 Dose: 10 mg Documented by: Atorvastatin Calcium (Lipitor) 20 mg PO QHS [facility] Last Admin: 06/02/20 22:30 Dose: 20 mg Documented by: Bisacodyl (Dulcolax) 10 mg [place] QDAY PRN PRN Reason: Constipation unrelieved by MOM Chlorpromazine HCl (Thorazine) 10 mg PO Q6H PRN PRN Reason: Hiccups Dexamethasone (Decadron) 6 mg PO DAILY [facility] Stop: 06/11/20 09:59 Last Admin: 06/03/20 11:19 Dose: 6 mg Documented by: Dextrose (D50w (25gm) Syringe) 50 ml IV Q30MIN PRN; Protocol PRN Reason: Hypoglycemia Enoxaparin Sodium (Enoxaparin) 30 mg SUB-Q QDAY [facility] Last Admin: 06/03/20 11:20 Dose: 30 mg Documented by: Insulin Glargine (Lantus) 100 units SUB-Q QHS [facility] Last Admin: 06/03/20 01:00 Dose: 100 units Documented by: Insulin Human Lispro (Humalog) 0 unit SUB-Q Q6H [facility]; Protocol Last Admin: 06/03/20 11:20 Dose: 3 unit Documented by: Naloxone HCl (Naloxone) 0.1 mg IV Q2MIN PRN PRN Reason: Res Rate </= 8 or 02 SAT < 92% Ondansetron HCl (Zofran) 4 mg IV Q8H PRN PRN Reason: N/V unrelieved by Reglan Oxycodone/Acetaminophen (Percocet 5/325) 1 tab PO Q6H PRN PRN Reason: Pain, Moderate (4-6) Last Admin: 06/03/20 00:57 Dose: 1 tab Documented by: Sodium Chloride (Sodium Chloride Flush Syringe 10 Ml) 10 ml IV BID [facility] Last Admin: 06/03/20 11:42 Dose: 10 ml Documented by: Sodium Chloride (Sodium Chloride Flush Syringe 10 Ml) 10 ml IV PRN PRN PRN Reason: LINE FLUSH Tizanidine HCl (Zanaflex) 4 mg PO Q8H PRN PRN Reason: Muscle Spasm Exam - Vital Signs Vital signs: Vital Signs Temp Pulse Resp BP Pulse Ox 99.4 F 93 H 24 134/75 88 05/31/20 13:07 05/31/20 13:07 05/31/20 13:07 05/31/20 13:07 05/31/20 13:07 - General Appearance General appearance: well-developed, well-nourished, appears stated age, moderate distress, other (VM O2) EENT: ATNC, PERRL Neck: Present: neck supple Respiratory: Other (corase breath sounds) Heart: regular, S1S2, no murmurs Gastrointestinal: Present: normoactive bowel sounds. Absent: tenderness, distended Integumentary: no rash, warm and dry Neurologic: no focal deficit, no asterixis, alert and oriented x3 Musculoskeletal: Present: other (no edema) Results - Lab Results 06/03/20 05:18 06/03/20 05:18 Most recent lab results Calcium 9.3 mg/dL (8.4-10.2) 06/03/20 05:18 Magnesium 2.20 mg/dL (1.7-2.3) 05/31/20 15:23 Urine Creatinine 161.6 mg/dL (0.1-20.0) H 06/01/20 Unknown Urine Sodium 47 mmol/L 06/01/20 Unknown - Image Kidney/bladder ultrasound: pending Assessment and Plan 1. Acute kidney injury: KEITH superimposed on CKD satge 3 in the setting of severe COVID infection. Renal US pending. UA results noted. Monitor renal function. Slight decrease in the Creatinine level since yesterday. Avoid nephrotoxic agents. Meds dosage based on GFR. Monitor for HORSE TRAINER needs. No acute indication for HORSE TRAINER today. 2. FEN: Hyperkalemia, improved, monitor. Metabolic acidosis, monitor. Monitor lytes and volume status. 3. Acute hypoxic respiratory failure: 2/2 COVID-19 PNA. On Decadron. Followed by Pulmonary. 4. Bilateral COVID-19 PNA: Followed by ID. 5. DM with hyperglycemia: Accu-Check, sliding scale coverage, ADA diet. 6. Hypertension: Monitor BP. - Subjective: Patient was seen and examined at the bedside. In IMCU.
--- NOTE | 2020-06-03 14:11 | Event Note ---
Date: 06/03/20 Patient is currently being followed in our office for CKD. Informed .
--- NOTE | 2020-06-03 16:51 | Progress Note ---
Assessment and Plan Assessment and plan: 54 year old male presenting with shortness of breath, with hypoxia on admission, saturation in the low 80s. PMHx of HTN PCP- Calin alicia Home med: ANTONIO, METOPROLOL, LORSTAN, HYDRALAZIN AND AMYLODPIN CXR: Bilateral lobar inflitrates- My own read 06/02: Continue current management. Patient on high flow. If can tolerate prone recommend prone position during hours of sleep. 06/03: Continue supportive care. Overall prognosis is guarded. Will discuss proceed with obtaining consent for convalescent plasma. Poor prognosis considering COVID-19 and complicated by renal failure. Acute Hypoxic Respiratory failure 2019 novel sampson virus Pneumonia Bilateral penumonia KEITH WITH VASOMOTOR NEPHROPATHY ON CKD Stage 3 HTN DM with hyperglycemia Plan Continue support care Pulmonary and ID consult in put noted Started on steroids Remdesivir precluded due to renal function Start on Abx Labs pending Blood cultures Aspiration precautions DVT/GI prophy Plan discussed with the patient The high probability of a clinically significant, sudden or life threatening deterioration of the [pulmonary] system(s) required my full and direct attention, intervention and personal management. The aggregate critical care time was [35] minutes. This time is in addition to time spent performing reported procedures but includes the following: [x] Data Review and interpretation [x] Patient assessment and monitoring of vital signs [x] Documentation [x] Medication orders and management History Interval history: Patient seen and examined still on high flow due to persist hypoxia but no other complaints Hospitalist Physical - Physical exam Narrative exam: VITAL SIGNS: Reviewed. GENERAL: The patient appears normally developed, obese vital signs as documented. HEAD: No signs of head trauma. EYES: Pupils are equal. Extraocular motions intact. EARS: Hearing grossly intact. MOUTH: Oropharynx is normal. NECK: No adenopathy, no JVD. CHEST: Rapid respiratory rate chest with diminished breath sounds bilaterally. No wheezes, rales, or rhonchi. CARDIAC: Regular rate and rhythm. S1 and S2, without murmurs, gallops, or rubs. VASCULAR: No Edema. Peripheral pulses normal and equal in all extremities. ABDOMEN: Soft, non tender and non distended. No rebound or guarding, and no masses palpated. Bowel Sounds normal. MUSCULOSKELETAL: Good range of motion of all major joints. Extremities without clubbing, cyanosis or edema. NEUROLOGIC EXAM: Awake but lethargic and oriented x 3 No focal sensory or strength deficits. Speech normal. Follows commands. PSYCHIATRIC: Mood normal. SKIN: detail exam as documented in skin assessment - Constitutional Vitals: Temp Pulse Resp BP Pulse Ox 98.4 F 79 51 H 152/90 88 06/03/20 16:00 06/03/20 16:10 06/03/20 16:10 06/03/20 16:10 06/03/20 16:10 HEART Score - HEART Score Troponin: Troponin T 0.021 ng/mL (0.00-0.029) 05/31/20 15:23 Results - Labs CBC & Chem 7: 06/03/20 05:18 06/03/20 05:18 Labs: Laboratory Last Values WBC 18.4 K/mm3 (4.5-11.0) H 06/03/20 05:18 RBC 4.77 M/mm3 (3.65-5.03) 06/03/20 05:18 Hgb 13.9 gm/dl (11.8-15.2) 06/03/20 05:18 Hct 41.2 % (35.5-45.6) 06/03/20 05:18 MCV 86 fl (84-94) 06/03/20 05:18 MCH 29 pg (28-32) 06/03/20 05:18 MCHC 34 % (32-34) 06/03/20 05:18 RDW 15.3 % (13.2-15.2) H 06/03/20 05:18 Plt Count 311 K/mm3 (140-440) 06/03/20 05:18 Lymph % (Auto) 7.1 % (13.4-35.0) L 06/02/20 04:55 [place] % (Auto) 3.4 % (0.0-7.3) 06/02/20 04:55 Eos % (Auto) 0.0 % (0.0-4.3) 06/02/20 04:55 Baso % (Auto) 0.2 % (0.0-1.8) 06/02/20 04:55 Lymph # 1.1 K/mm3 (1.2-5.4) L 06/02/20 04:55 [place] # 0.5 K/mm3 (0.0-0.8) 06/02/20 04:55 Eos # 0.0 K/mm3 (0.0-0.4) 06/02/20 04:55 Baso # 0.0 K/mm3 (0.0-0.1) 06/02/20 04:55 Add Manual Diff Complete 06/03/20 05:18 Total Counted 100 06/03/20 05:18 Seg Neutrophils % Front Desk Officer 06/03/20 05:18 Seg Neuts % (Manual) 91.0 % (40.0-70.0) H 06/03/20 05:18 Band Neutrophils % 0 % 06/03/20 05:18 Lymphocytes % (Manual) 8.0 % (13.4-35.0) L 06/03/20 05:18 Reactive Lymphs % (Man) 0 % 06/03/20 05:18 Monocytes % (Manual) 1.0 % (0.0-7.3) 06/03/20 05:18 Eosinophils % (Manual) 0 % (0.0-4.3) 06/03/20 05:18 Basophils % (Manual) 0 % (0.0-1.8) 06/03/20 05:18 Metamyelocytes % 0 % 06/03/20 05:18 Myelocytes % 0 % 06/03/20 05:18 Promyelocytes % 0 % 06/03/20 05:18 Blast Cells % 0 % 06/03/20 05:18 Nucleated RBC % Not Reportable 06/03/20 05:18 Seg Neutrophils # 13.2 K/mm3 (1.8-7.7) H 06/02/20 04:55 Seg Neutrophils # Man 16.7 K/mm3 (1.8-7.7) H 06/03/20 05:18 Band Neutrophils # 0.0 K/mm3 06/03/20 05:18 Lymphocytes # (Manual) 1.5 K/mm3 (1.2-5.4) 06/03/20 05:18 Abs React Lymphs (Man) 0.0 K/mm3 06/03/20 05:18 Monocytes # (Manual) 0.2 K/mm3 (0.0-0.8) 06/03/20 05:18 Eosinophils # (Manual) 0.0 K/mm3 (0.0-0.4) 06/03/20 05:18 Basophils # (Manual) 0.0 K/mm3 (0.0-0.1) 06/03/20 05:18 Metamyelocytes # 0.0 K/mm3 06/03/20 05:18 Myelocytes # 0.0 K/mm3 06/03/20 05:18 Promyelocytes # 0.0 K/mm3 06/03/20 05:18 Blast Cells # 0.0 K/mm3 06/03/20 05:18 WBC Morphology Not Reportable 06/03/20 05:18 Hypersegmented Neuts Not Reportable 06/03/20 05:18 Hyposegmented Neuts Not Reportable 06/03/20 05:18 Hypogranular Neuts Not Reportable 06/03/20 05:18 Smudge Cells Not Reportable 06/03/20 05:18 Toxic Granulation Not Reportable 06/03/20 05:18 Toxic Vacuolation Not Reportable 06/03/20 05:18 Dohle Bodies Not Reportable 06/03/20 05:18 Pelger-Huet Anomaly Not Reportable 06/03/20 05:18 Edwige Rods Not Reportable 06/03/20 05:18 Platelet Estimate Consistent w auto 06/03/20 05:18 Clumped Platelets Not Reportable 06/03/20 05:18 Plt Clumps, EDTA Not Reportable 06/03/20 05:18 Large Platelets Not Reportable 06/03/20 05:18 Giant Platelets Not Reportable 06/03/20 05:18 Platelet Satelliting Not Reportable 06/03/20 05:18 Plt Morphology Comment Not Reportable 06/03/20 05:18 RBC Morphology Not Reportable 06/03/20 05:18 Dimorphic RBCs Not Reportable 06/03/20 05:18 Polychromasia Not Reportable 06/03/20 05:18 Hypochromasia Not Reportable 06/03/20 05:18 Poikilocytosis Not Reportable 06/03/20 05:18 Anisocytosis Not Reportable 06/03/20 05:18 Microcytosis Not Reportable 06/03/20 05:18 Macrocytosis Not Reportable 06/03/20 05:18 Spherocytes Not Reportable 06/03/20 05:18 Pappenheimer Bodies Not Reportable 06/03/20 05:18 Sickle Cells Not Reportable 06/03/20 05:18 Target Cells Not Reportable 06/03/20 05:18 Tear Drop Cells Not Reportable 06/03/20 05:18 Ovalocytes Not Reportable 06/03/20 05:18 Helmet Cells Not Reportable 06/03/20 05:18 [place] Bodies Not Reportable 06/03/20 05:18 Arnold Rings Not Reportable 06/03/20 05:18 [place] Cells Not Reportable 06/03/20 05:18 Bite Cells Not Reportable 06/03/20 05:18 Crenated Cell Not Reportable 06/03/20 05:18 Elliptocytes Not Reportable 06/03/20 05:18 Acanthocytes (Spur) Not Reportable 06/03/20 05:18 Rouleaux Not Reportable 06/03/20 05:18 Hemoglobin C Crystals Not Reportable 06/03/20 05:18 Schistocytes Not Reportable 06/03/20 05:18 Malaria parasites Not Reportable 06/03/20 05:18 [place]inson Bodies Not Reportable 06/03/20 05:18 Hem Pathologist Commnt No 06/03/20 05:18 PT 11.5 Sec. (12.2-14.9) L 05/31/20 15:23 INR 0.83 (0.87-1.13) L 05/31/20 15:23 D-Dimer 738.85 ng/mlDDU (0-234) H 05/31/20 16:49 Sodium 137 mmol/L (137-145) 06/03/20 05:18 Potassium 5.0 mmol/L (3.6-5.0) 06/03/20 05:18 Chloride 101.5 mmol/L (98-107) 06/03/20 05:18 Carbon Dioxide 20 mmol/L (22-30) L 06/03/20 05:18 Anion Gap 21 mmol/L 06/03/20 05:18 BUN 50 mg/dL (9-20) H 06/03/20 05:18 Creatinine 3.1 mg/dL (0.8-1.3) H 06/03/20 05:18 Estimated GFR 25 ml/min 06/03/20 05:18 BUN/Creatinine Ratio 16 % 06/03/20 05:18 Glucose 248 mg/dL (75-100) H 06/03/20 05:18 POC Glucose 180 (70-105) H 06/03/20 11:40 Hemoglobin A1c 8.5 % (4-6) H 05/31/20 16:49 Calcium 9.3 mg/dL (8.4-10.2) 06/03/20 05:18 Magnesium 2.20 mg/dL (1.7-2.3) 05/31/20 15:23 Ferritin 599.0 ng/mL (30.0-300.0) H 05/31/20 16:49 Total Bilirubin 0.30 mg/dL (0.1-1.2) 06/03/20 05:18 AST 23 units/L (5-40) 06/03/20 05:18 ALT 31 units/L (7-56) 06/03/20 05:18 Alkaline Phosphatase 69 units/L (35-129) 06/03/20 05:18 Lactate Dehydrogenase 409 units/L (91-180) H 05/31/20 16:49 Total Creatine Kinase 325 units/L (55-170) H 05/31/20 15:23 Troponin T 0.021 ng/mL (0.00-0.029) 05/31/20 15:23 C-Reactive Protein 14.00 mg/dL (0.00-1.30) H 05/31/20 16:49 NT-Pro-B Natriuret Pep 111.3 pg/mL (0-900) 06/01/20 13:41 Total Protein 7.4 g/dL (6.3-8.2) 06/03/20 05:18 Albumin 2.8 g/dL (3.9-5) L 06/03/20 05:18 Albumin/Globulin Ratio 0.6 % 06/03/20 05:18 Procalcitonin 0.33 ng/mL (<0.15) 05/31/20 16:49 Urine Color Yellow (Yellow) 06/01/20 Unknown Urine Turbidity Clear (Clear) 06/01/20 Unknown Urine pH 5.0 (5.0-7.0) 06/01/20 Unknown Ur Specific [place] 1.018 (1.003-1.030) 06/01/20 Unknown Urine Protein >500 mg/dL (Negative) 06/01/20 Unknown Urine Glucose (UA) >=500 mg/dL (Negative) 06/01/20 Unknown Urine Ketones Tr mg/dL (Negative) 06/01/20 Unknown Urine Blood Mod (Negative) 06/01/20 Unknown Urine Nitrite Neg (Negative) 06/01/20 Unknown Urine Bilirubin Neg (Negative) 06/01/20 Unknown Urine Urobilinogen < 2.0 mg/dL (<2.0) 06/01/20 Unknown Ur Leukocyte Esterase Neg (Negative) 06/01/20 Unknown Urine WBC (Auto) 4.0 /HPF (0.0-6.0) 06/01/20 Unknown Urine RBC (Auto) 9.0 /HPF (0.0-6.0) 06/01/20 Unknown U Epithel Cells (Auto) 1.0 /HPF (0-13.0) 06/01/20 Unknown Urine Mucus Few /HPF 06/01/20 Unknown Urine Eosinophils None seen (None Seen) 06/01/20 Unknown Urine Creatinine 161.6 mg/dL (0.1-20.0) H 06/01/20 Unknown Urine Sodium 47 mmol/L 06/01/20 Unknown Coronavirus (PCR) Positive (Negative) A 06/01/20 Unknown Hepatitis A IgM Ab Non-reactive (NonReactive) 06/03/20 10:39 Hep Bs Antigen Non-reactive (Negative) 06/03/20 10:39 Hep B Core IgM Ab Non-reactive (NonReactive) 06/03/20 10:39 Hepatitis C Antibody Non-reactive (NonReactive) 06/03/20 10:39 Microbiology: Microbiology 05/31/20 15:23 Peripheral/Venous Blood Culture - Preliminary NO GROWTH AFTER 72 HOURS 05/31/20 15:26 Peripheral/Venous Blood Culture - Preliminary NO GROWTH AFTER 72 HOURS Hess/IV: Voiding Method Urinal IV Catheter Type [Right INT / Saline Lock Antecubital] Active Medications - Current Medications Current Medications: Generic Name Dose Route Start Last Admin Trade Name Freq PRN Reason Stop Dose Admin Acetaminophen 650 mg 05/31/20 15:49 Tylenol PO Q6H PRN Pain MILD(1-3)/Fever >100.5/LEBRON Albuterol 2.5 mg 05/31/20 15:49 Proventil IH Q3HRT PRN Shortness Of Breath Amlodipine Besylate 10 mg 06/01/20 10:00 06/03/20 11:19 Amlodipine PO 10 mg DAILY CHERI Administration Atorvastatin Calcium 20 mg 05/31/20 22:00 06/02/20 22:30 Lipitor PO 20 mg QHS CHERI Administration Bisacodyl 10 mg 05/31/20 15:57 Dulcolax [place] QDAY PRN Constipation unrelieved by MOM Chlorpromazine HCl 10 mg 05/31/20 15:57 Thorazine PO Q6H PRN Hiccups Dexamethasone 6 mg 06/01/20 10:00 06/03/20 11:19 Decadron PO 06/11/20 09:59 6 mg DAILY CHERI Administration Dextrose 50 ml 05/31/20 15:59 D50w (25gm) Syringe IV Q30MIN PRN Hypoglycemia Protocol Enoxaparin Sodium 30 mg 06/01/20 10:00 06/03/20 11:20 Enoxaparin SUB-Q 30 mg QDAY CHERI Administration Insulin Glargine 100 units 05/31/20 22:00 06/03/20 01:00 Lantus SUB-Q 100 units QHS CHERI Administration Insulin Human Lispro 0 unit 05/31/20 16:00 06/03/20 11:20 Humalog SUB-Q 3 unit Q6H CHERI Administration Protocol Naloxone HCl 0.1 mg 05/31/20 15:49 Naloxone IV Q2MIN PRN Res Rate </= 8 or 02 SAT < 92% Ondansetron HCl 4 mg 05/31/20 15:57 Zofran IV Q8H PRN N/V unrelieved by Reglan Oxycodone/Acetaminophen 1 tab 05/31/20 15:49 06/03/20 00:57 Percocet 5/325 PO 1 tab Q6H PRN Administration Pain, Moderate (4-6) Sodium Chloride 10 ml 05/31/20 22:00 06/03/20 11:42 Sodium Chloride Flush Syringe 10 Ml IV 10 ml BID CHERI Administration Sodium Chloride 10 ml 05/31/20 15:49 Sodium Chloride Flush Syringe 10 Ml IV PRN PRN LINE FLUSH Tizanidine HCl 4 mg 05/31/20 15:57 Zanaflex PO Q8H PRN Muscle Spasm Nutrition/Malnutrition Assess - Dietary Evaluation Nutrition/Malnutrition Findings: Nutrition Notes Start: 06/01/20 10:42 Freq: Status: Active Protocol: Document 06/03/20 12:46 LM (Rec: 06/03/20 12:52 LM [id number]) Nutrition Notes Initial or Follow up Brief Note Current Diagnosis CKD(stage I-IV),Diabetes, Hypertension,Stroke Other Pertinent Diagnosis COVID-19 (+) Current Diet Renal Labs/Tests BUN 50 Cr 3.1 BG 248 Pertinent Medications Humalog Lantus Subjective/Other Information Unable to reach pt by phone. Nutrition Intervention Follow-Up By: 06/06/20 Additional Comments F/U for diet education
--- NOTE | 2020-06-03 17:45 | Progress Note ---
Assessment and Plan Cultures: Coronavirus PCR:positive Blood culture: no growth A/P: 54-year-old male with diabetes, CKD, prior CVA, obesity was admitted to the hospital with complaints of cough, shortness of breath along with fatigue and malaise: #Severe COVID pneumonia: CRP 14.0, LDH 409, ferritin 599, Ddimer 738. #Acute hypoxic respiratory failure: on high flow. #KEITH on CKD Recs: Continue IV/PO Dexamethasone 6 mg daily x 10 days Not a candidate for Remdesivir due to renal failure trend ferritin, LDH, d-dimer, CRP every 2-3 days for risk stratification and to assess disease progression prophylactic anticoagulation based on d-dimer GColleen Redding MD [facility] M: [phone] O: [phone] F: [phone] Subjective Date of service: 06/03/20 Principal diagnosis: keith Interval history: Afebrile, white count elevated 18.4. Objective - Exam Narrative Exam: Physical exam deferred due to PPE conservation strategy. Please refer to primary team's note. - Constitutional Vitals: Vital Signs Temp Pulse Resp BP Pulse Ox 98.4 F 81 38 H 141/89 91 06/03/20 16:00 06/03/20 17:10 06/03/20 17:10 06/03/20 17:10 06/03/20 17:10 Temperature -Last 24 Hours Temperature 98.4 F Temperature 98.5 F Temperature 97.9 F Temperature 99.4 F Temperature 100 F - Labs CBC & Chem 7: 06/03/20 05:18 06/03/20 05:18 Labs: Abnormal lab results 06/02/20 06/02/20 06/03/20 Range/Units 22:15 23:47 05:18 WBC 18.4 H (4.5-11.0) K/mm3 RDW 15.3 H (13.2-15.2) % Seg Neuts % (Manual) 91.0 H (40.0-70.0) % Lymphocytes % (Manual) 8.0 L (13.4-35.0) % Seg Neutrophils # Man 16.7 H (1.8-7.7) K/mm3 Carbon Dioxide (22-30) mmol/L BUN (9-20) mg/dL Creatinine (0.8-1.3) mg/dL Glucose (75-100) mg/dL POC Glucose 292 H 292 H (70-105) Albumin (3.9-5) g/dL 06/03/20 06/03/20 06/03/20 Range/Units 05:18 05:20 11:40 WBC (4.5-11.0) K/mm3 RDW (13.2-15.2) % Seg Neuts % (Manual) (40.0-70.0) % Lymphocytes % (Manual) (13.4-35.0) % Seg Neutrophils # Man (1.8-7.7) K/mm3 Carbon Dioxide 20 L (22-30) mmol/L BUN 50 H (9-20) mg/dL Creatinine 3.1 H (0.8-1.3) mg/dL Glucose 248 H (75-100) mg/dL POC Glucose 208 H 180 H (70-105) Albumin 2.8 L (3.9-5) g/dL 06/03/20 Range/Units 16:58 WBC (4.5-11.0) K/mm3 RDW (13.2-15.2) % Seg Neuts % (Manual) (40.0-70.0) % Lymphocytes % (Manual) (13.4-35.0) % Seg Neutrophils # Man (1.8-7.7) K/mm3 Carbon Dioxide (22-30) mmol/L BUN (9-20) mg/dL Creatinine (0.8-1.3) mg/dL Glucose (75-100) mg/dL POC Glucose 152 H (70-105) Albumin (3.9-5) g/dL
[2020-06-04] MEDS: INSULIN LISPRO 100 UNIT/ML VIAL 3 mL SUB-Q SCH ×4 (02:34→18:00)
[2020-06-04 05:25] LABS: Mean Corpuscular HGB Conc 33 % (32-34); Mean Corpuscular Volume 87 fl (84-94); Platelet Count 350 K/mm3 (140-440); Red Cell Distribution Width 15.7 % (13.2-15.2)
[2020-06-04 05:39] LABS: Calcium 9.6 mg/dL (8.4-10.2)
[2020-06-04 06:46] LABS: Basophils % (Manual) 0 % (0.0-1.8); Eosinophils % (Manual) 0 % (0.0-4.3); Total Cells Counted 100
[2020-06-04 06:47] LABS: Platelet Estimate Consistent w Auto; Target Cells Few
[2020-06-04] MEDS ORDERED: SODIUM POLYSTYRENE 15 GM/60 ML ORAL LIQD PO ONE (08:00)
[2020-06-04] MEDS: ENOXAPARIN 30 MG/0.3 ML INJ SUB-Q SCH (09:33)
[2020-06-04] MEDS: DEXAMETHASONE 4 MG TAB PO SCH (09:33)
[2020-06-04] MEDS: amLODIPine 10 MG TAB PO SCH (09:35)
--- NOTE | 2020-06-04 09:36 | Progress Note ---
Assessment and Plan 1. Acute kidney injury: KEITH superimposed on CKD satge 3 in the setting of severe COVID infection. Renal US pending. UA results noted. Monitor renal function. Creatinine level is same as yesterday. Avoid nephrotoxic agents. Meds dosage based on GFR. Monitor for K[employer] SU[employer]VIS[employer] needs. No acute indication for K[employer] SUPERVIS[employer] today. 2. FEN: Hyperkalemia, kayexalate ordered, monitor. Metabolic acidosis, monitor. Monitor lytes and volume status. 3. Acute hypoxic respiratory failure: 2/2 COVID-19 PNA. On Decadron. Currently on BIPAP. Followed by Pulmonary. 4. Bilateral COVID-19 PNA: Followed by ID. 5. DM with hyperglycemia: Accu-Check, sliding scale coverage, ADA diet. 6. Hypertension: Monitor BP. - Subjective: Patient was seen and examined at the bedside. In IMCU. D/w RN. - General Appearance General appearance: well-developed, well-nourished, appears stated age, no distress, on BIPAP HEENT: ATNC, SVETLANA Neck: Trachea midline Respiratory: coarse breath sounds Heart: regular, S1S2, no murmurs Gastrointestinal: soft, normoactive bowel sounds, not tender, not distended Integumentary: no rash, warm and dry Neurologic: no focal deficit, no asterixis, alert and oriented x3 Ext: no edema Subjective Date of service: 06/04/20 Principal diagnosis: keith Objective - Vital Signs Vital signs: Vital Signs - 12hr 06/03/20 06/03/20 06/03/20 21:40 21:50 22:00 Temperature Pulse Rate 95 H 93 H 91 H Pulse Rate [ From Monitor] Respiratory 16 25 H 39 H Rate Blood Pressure 149/91 149/91 161/80 O2 Sat by Pulse 78 L Oximetry 06/03/20 06/03/20 06/03/20 22:10 22:20 22:30 Temperature Pulse Rate 87 87 84 Pulse Rate [ From Monitor] Respiratory 29 H 29 H 15 Rate Blood Pressure 161/80 161/80 161/80 O2 Sat by Pulse 95 Oximetry 06/03/20 06/03/20 06/03/20 22:40 22:50 23:00 Temperature Pulse Rate 88 88 95 H Pulse Rate [ From Monitor] Respiratory 26 H 20 7 L Rate Blood Pressure 161/80 161/80 186/105 O2 Sat by Pulse Oximetry 06/03/20 06/03/20 06/03/20 23:10 23:20 23:25 Temperature 98.4 F Pulse Rate 93 H 98 H Pulse Rate [ From Monitor] Respiratory 28 H 31 H Rate Blood Pressure 186/105 186/105 O2 Sat by Pulse Oximetry 06/03/20 06/03/20 06/03/20 23:30 23:40 23:46 Temperature Pulse Rate 93 H 93 H 92 H Pulse Rate [ From Monitor] Respiratory 15 15 28 H Rate Blood Pressure 186/105 186/105 186/105 O2 Sat by Pulse 95 Oximetry 06/03/20 06/04/20 06/04/20 23:50 00:00 00:10 Temperature Pulse Rate 92 H 90 89 Pulse Rate [ 90 From Monitor] Respiratory 28 H 29 H 44 H Rate Blood Pressure 186/105 186/105 186/105 O2 Sat by Pulse 94 94 93 Oximetry 06/04/20 06/04/20 06/04/20 00:20 00:30 00:40 Temperature Pulse Rate 91 H 88 87 Pulse Rate [ From Monitor] Respiratory 26 H 25 H 17 Rate Blood Pressure 186/105 186/105 186/105 O2 Sat by Pulse 92 94 96 Oximetry 06/04/20 06/04/20 06/04/20 00:50 01:00 01:10 Temperature Pulse Rate 86 89 86 Pulse Rate [ From Monitor] Respiratory 43 H 34 H 37 H Rate Blood Pressure 186/105 186/105 186/105 O2 Sat by Pulse 93 94 92 Oximetry 06/04/20 06/04/20 06/04/20 01:20 01:30 01:40 Temperature Pulse Rate 90 85 85 Pulse Rate [ From Monitor] Respiratory 35 H 46 H 23 Rate Blood Pressure 186/105 186/105 186/105 O2 Sat by Pulse 93 93 93 Oximetry 06/04/20 06/04/20 06/04/20 01:50 02:00 02:10 Temperature Pulse Rate 86 87 84 Pulse Rate [ From Monitor] Respiratory 32 H 14 21 Rate Blood Pressure 186/105 186/105 186/105 O2 Sat by Pulse 91 93 91 Oximetry 06/04/20 06/04/20 06/04/20 02:20 02:30 02:40 Temperature Pulse Rate 87 85 87 Pulse Rate [ From Monitor] Respiratory 28 H 34 H 38 H Rate Blood Pressure 186/105 186/105 136/85 O2 Sat by Pulse 91 92 91 Oximetry 06/04/20 06/04/20 06/04/20 02:50 03:00 03:10 Temperature Pulse Rate 87 104 H 91 H Pulse Rate [ From Monitor] Respiratory 35 H 17 34 H Rate Blood Pressure 136/85 175/95 175/95 O2 Sat by Pulse 93 93 93 Oximetry 06/04/20 06/04/20 06/04/20 03:20 03:30 03:37 Temperature 98.8 F Pulse Rate 89 85 Pulse Rate [ From Monitor] Respiratory 44 H 42 H Rate Blood Pressure 175/95 175/95 O2 Sat by Pulse 90 90 Oximetry 06/04/20 06/04/20 06/04/20 03:40 03:50 04:00 Temperature Pulse Rate 87 88 90 Pulse Rate [ 86 From Monitor] Respiratory 44 H 43 H 32 H Rate Blood Pressure 175/95 175/95 127/86 O2 Sat by Pulse 89 91 91 Oximetry 06/04/20 06/04/20 06/04/20 04:10 04:20 04:30 Temperature Pulse Rate 83 90 87 Pulse Rate [ From Monitor] Respiratory 40 H 19 22 Rate Blood Pressure 127/86 127/86 127/86 O2 Sat by Pulse 92 92 Oximetry 06/04/20 06/04/20 06/04/20 04:40 04:50 05:00 Temperature Pulse Rate 84 81 85 Pulse Rate [ From Monitor] Respiratory 23 46 H 21 Rate Blood Pressure 127/86 127/86 119/74 O2 Sat by Pulse 91 92 91 Oximetry 06/04/20 06/04/20 06/04/20 05:10 05:20 05:30 Temperature Pulse Rate 82 85 88 Pulse Rate [ From Monitor] Respiratory 23 44 H 34 H Rate Blood Pressure 119/74 119/74 119/74 O2 Sat by Pulse 92 91 93 Oximetry 06/04/20 06/04/20 06/04/20 05:40 05:50 06:00 Temperature Pulse Rate 89 91 H 89 Pulse Rate [ From Monitor] Respiratory 40 H 32 H 30 H Rate Blood Pressure 119/74 119/74 127/78 O2 Sat by Pulse 91 90 89 Oximetry 06/04/20 06/04/20 06/04/20 06:10 06:20 06:30 Temperature Pulse Rate 86 89 84 Pulse Rate [ From Monitor] Respiratory 27 H 25 H 41 H Rate Blood Pressure 127/78 127/78 127/78 O2 Sat by Pulse 89 88 89 Oximetry 06/04/20 06/04/20 06/04/20 06:40 06:50 07:00 Temperature Pulse Rate 82 83 84 Pulse Rate [ From Monitor] Respiratory 49 H 44 H 31 H Rate Blood Pressure 127/78 127/78 115/65 O2 Sat by Pulse 89 91 91 Oximetry 06/04/20 06/04/20 06/04/20 07:10 07:20 07:22 Temperature Pulse Rate 83 85 88 Pulse Rate [ From Monitor] Respiratory 42 H 18 35 H Rate Blood Pressure 115/65 115/65 O2 Sat by Pulse 90 89 92 Oximetry 06/04/20 06/04/20 06/04/20 07:30 07:40 07:50 Temperature Pulse Rate 80 83 86 Pulse Rate [ From Monitor] Respiratory 45 H 29 H 40 H Rate Blood Pressure 115/65 115/65 115/65 O2 Sat by Pulse 89 89 89 Oximetry 06/04/20 08:00 Temperature 98.0 F Pulse Rate 91 H Pulse Rate [ From Monitor] Respiratory 31 H Rate Blood Pressure 144/89 O2 Sat by Pulse Oximetry - Lab 06/04/20 04:17 06/04/20 04:17 Most recent lab results Calcium 9.6 mg/dL (8.4-10.2) 06/04/20 04:17 Magnesium 2.20 mg/dL (1.7-2.3) 05/31/20 15:23 Urine Creatinine 161.6 mg/dL (0.1-20.0) H 06/01/20 Unknown Urine Sodium 47 mmol/L 06/01/20 Unknown Medications & Allergies - Medications Allergies/Adverse Reactions: Allergies lisinopril Allergy (Verified 05/31/20 13:03) Angioedema Penicillins Allergy (Verified 05/31/20 13:03) Hives Home Medications: Home Medications Medication Instructions Recorded Confirmed Last Taken Type Acetaminophen [Acetaminophen TAB] 650 mg PO Q4H PRN #30 tablet 02/15/17 Unknown Rx AtorvaSTATin [Lipitor] 20 mg PO QHS tablet 02/15/17 Unknown Rx Cipro/Dexameth 0.3/0.1% [Ciprodex 4 drops AU BID bottle 02/15/17 Unknown Rx OTIC] Detemir (Nf) [Levemir (Nf)] 100 units SUB-Q QHS units 02/15/17 Unknown Rx Dextrose 50% in Water [D50W (25GM) 50 ml IV PRN PRN #30 syringe 02/15/17 Unknown Rx Syringe] Enoxaparin 40 mg SUB-Q QDAY syringe 02/15/17 Unknown Rx Lipase/Protease/Amylase [Pancreaze 1 each FEEDTUBE PRN PRN #30 capsule 02/15/[address] 10,500 Unit] Metoprolol [Lopressor TAB] 25 mg PO BID tablet 02/15/17 Unknown Rx Metoprolol [Lopressor TAB] 25 mg PO BID #60 tablet 02/15/17 Unknown Rx Ondansetron [Zofran INJ] 4 mg IV Q8H PRN #30 vial 02/15/17 Unknown Rx Prednisone [predniSONE 5 mg (6-Day 5 mg PO .TAPER #1 tab.ds.pk 02/15/17 Unknown Rx Pack, 21 Tabs)] Simple Syrup 15 ml FEEDTUBE PRN PRN #30 02/15/17 Unknown Rx oral.liqd Simple Syrup 30 ml FEEDTUBE PRN PRN #30 02/15/17 Unknown Rx oral.liqd Sodium Bicarbonate 325 mg FEEDTUBE PRN PRN #30 tablet 02/15/17 Unknown Rx amLODIPine 10 mg PO DAILY tablet 02/15/17 Unknown Rx amLODIPine [Norvasc] 10 mg PO DAILY #30 tab 02/15/17 Unknown Rx bisacodyL [Dulcolax suppos] 10 mg MN QDAY PRN #30 supp.rect 02/15/17 Unknown Rx chlorproMAZINE [Thorazine] 10 mg PO Q6H PRN #30 tablet 02/15/17 Unknown Rx dexAMETHasone [Decadron] 6 mg IV Q6HR vial 02/15/17 Unknown Rx hydrALAZINE [Apresoline INJ] 10 mg IV Q6HR PRN #30 vial 02/15/17 Unknown Rx oxyCODONE /ACETAMINOPHEN [Percocet 1 tab PO Q4H PRN #30 tablet 02/15/17 Unknown Rx 5/325 mg] oxyCODONE /ACETAMINOPHEN [Percocet 1 tab PO Q4HR #30 tab 02/15/17 Unknown Rx 5/325] tiZANidine [Zanaflex 4mg TAB] 4 mg PO Q8H PRN #30 tablet 02/15/17 Unknown Rx Permethrin 5% [Acticin 5% CREAM] 1 applicatio TP ONCE #1 tube 06/11/17 Unknown Rx Azithromycin [Zithromax Z-BENJIE] 250 mg PO DAILY 1 Days tab 11/23/18 Unknown Rx Ondansetron [Zofran Odt] 4 mg PO Q8HR PRN #14 tab.rapdis 11/23/18 Unknown Rx traMADoL [Ultram 50 MG tab] 50 mg PO Q4HR PRN #14 tablet 11/23/18 Unknown Rx Active Medications: Generic Name Dose Route Start Last Admin Trade Name Freq PRN Reason Stop Dose Admin Acetaminophen 650 mg 05/31/20 15:49 Tylenol PO Q6H PRN Pain MILD(1-3)/Fever >100.5/LEBRON Albuterol 2.5 mg 05/31/20 15:49 Proventil IH Q3HRT PRN Shortness Of Breath Amlodipine Besylate 10 mg 06/01/20 10:00 06/03/20 11:19 Amlodipine PO 10 mg DAILY CHERI Administration Atorvastatin Calcium 20 mg 05/31/20 22:00 06/03/20 21:23 Lipitor PO 20 mg QHS CHERI Administration Bisacodyl 10 mg 05/31/20 15:57 Dulcolax MN QDAY PRN Constipation unrelieved by MOM Chlorpromazine HCl 10 mg 05/31/20 15:57 Thorazine PO Q6H PRN Hiccups Dexamethasone 6 mg 06/01/20 10:00 06/03/20 11:19 Decadron PO 06/11/20 09:59 6 mg DAILY CHERI Administration Dextrose 50 ml 05/31/20 15:59 D50w (25gm) Syringe IV Q30MIN PRN Hypoglycemia Protocol Enoxaparin Sodium 30 mg 06/01/20 10:00 06/03/20 11:20 Enoxaparin SUB-Q 30 mg QDAY CHERI Administration Insulin Glargine 100 units 05/31/20 22:00 06/03/20 21:19 Lantus SUB-Q 100 units QHS CHERI Administration Insulin Human Lispro 0 unit 05/31/20 16:00 06/04/20 06:14 Humalog SUB-Q 3 unit Q6H CHERI Administration Protocol Naloxone HCl 0.1 mg 05/31/20 15:49 Naloxone IV Q2MIN PRN Res Rate </= 8 or 02 SAT < 92% Ondansetron HCl 4 mg 05/31/20 15:57 Zofran IV Q8H PRN N/V unrelieved by Anna Oxycodone/Acetaminophen 1 tab 05/31/20 15:49 06/03/20 00:57 Percocet 5/325 PO 1 tab Q6H PRN Administration Pain, Moderate (4-6) Sodium Chloride 10 ml 05/31/20 22:00 06/04/20 02:35 Sodium Chloride Flush Syringe 10 Ml IV 10 ml BID CHERI Administration Sodium Chloride 10 ml 05/31/20 15:49 Sodium Chloride Flush Syringe 10 Ml IV PRN PRN LINE FLUSH Tizanidine HCl 4 mg 05/31/20 15:57 Zanaflex PO Q8H PRN Muscle Spasm
--- NOTE | 2020-06-04 11:16 | Progress Note ---
Assessment and Plan 54 y/o male with acute respiratory failure, concern for COVID 19 pneumonia and possibly acute renal failure 1. Wean FiO2 for sats >88% 2. Agree with steroids as ordered by ID, unfortunately not a candidate for remdesivir given renal function 3. Suggest consent for convaslescent plasma, do not know if this has been asked about yet. 4. Prone as much as tolerated during the day and sleep prone at night 5. Follow up renal recs, NO HD per them 6. overall prognosis is guarded, COVID results are not back yet, but renal failure and COVID have been shows to see worse clinical outcomes. Subjective Date of service: 06/04/20 Principal diagnosis: talia Interval history: Pateints breathing is stable to worse. Requiring more time on bipap and still with marginal sats. Renal function is about the same. Unsure if I/O are accurate but states overall net negative state. Objective Vital Signs - 12hr 06/03/20 06/03/20 06/03/20 23:20 23:25 23:30 Temperature 98.4 F Pulse Rate 98 H 93 H Pulse Rate [ From Monitor] Respiratory 31 H 15 Rate Blood Pressure 186/105 186/105 O2 Sat by Pulse Oximetry 06/03/20 06/03/20 06/03/20 23:40 23:46 23:50 Temperature Pulse Rate 93 H 92 H 92 H Pulse Rate [ From Monitor] Respiratory 15 28 H 28 H Rate Blood Pressure 186/105 186/105 186/105 O2 Sat by Pulse 95 94 Oximetry 06/04/20 06/04/20 06/04/20 00:00 00:10 00:20 Temperature Pulse Rate 90 89 91 H Pulse Rate [ 90 From Monitor] Respiratory 29 H 44 H 26 H Rate Blood Pressure 186/105 186/105 186/105 O2 Sat by Pulse 94 93 92 Oximetry 06/04/20 06/04/20 06/04/20 00:30 00:40 00:50 Temperature Pulse Rate 88 87 86 Pulse Rate [ From Monitor] Respiratory 25 H 17 43 H Rate Blood Pressure 186/105 186/105 186/105 O2 Sat by Pulse 94 96 93 Oximetry 06/04/20 06/04/20 06/04/20 01:00 01:10 01:20 Temperature Pulse Rate 89 86 90 Pulse Rate [ From Monitor] Respiratory 34 H 37 H 35 H Rate Blood Pressure 186/105 186/105 186/105 O2 Sat by Pulse 94 92 93 Oximetry 06/04/20 06/04/20 06/04/20 01:30 01:40 01:50 Temperature Pulse Rate 85 85 86 Pulse Rate [ From Monitor] Respiratory 46 H 23 32 H Rate Blood Pressure 186/105 186/105 186/105 O2 Sat by Pulse 93 93 91 Oximetry 06/04/20 06/04/20 06/04/20 02:00 02:10 02:20 Temperature Pulse Rate 87 84 87 Pulse Rate [ From Monitor] Respiratory 14 21 28 H Rate Blood Pressure 186/105 186/105 186/105 O2 Sat by Pulse 93 91 91 Oximetry 06/04/20 06/04/20 06/04/20 02:30 02:40 02:50 Temperature Pulse Rate 85 87 87 Pulse Rate [ From Monitor] Respiratory 34 H 38 H 35 H Rate Blood Pressure 186/105 136/85 136/85 O2 Sat by Pulse 92 91 93 Oximetry 06/04/20 06/04/20 06/04/20 03:00 03:10 03:20 Temperature Pulse Rate 104 H 91 H 89 Pulse Rate [ From Monitor] Respiratory 17 34 H 44 H Rate Blood Pressure 175/95 175/95 175/95 O2 Sat by Pulse 93 93 90 Oximetry 06/04/20 06/04/20 06/04/20 03:30 03:37 03:40 Temperature 98.8 F Pulse Rate 85 87 Pulse Rate [ From Monitor] Respiratory 42 H 44 H Rate Blood Pressure 175/95 175/95 O2 Sat by Pulse 90 89 Oximetry 06/04/20 06/04/20 06/04/20 03:50 04:00 04:10 Temperature Pulse Rate 88 90 83 Pulse Rate [ 86 From Monitor] Respiratory 43 H 32 H 40 H Rate Blood Pressure 175/95 127/86 127/86 O2 Sat by Pulse 91 91 92 Oximetry 06/04/20 06/04/20 06/04/20 04:20 04:30 04:40 Temperature Pulse Rate 90 87 84 Pulse Rate [ From Monitor] Respiratory 19 22 23 Rate Blood Pressure 127/86 127/86 127/86 O2 Sat by Pulse 92 91 Oximetry 06/04/20 06/04/20 06/04/20 04:50 05:00 05:10 Temperature Pulse Rate 81 85 82 Pulse Rate [ From Monitor] Respiratory 46 H 21 23 Rate Blood Pressure 127/86 119/74 119/74 O2 Sat by Pulse 92 91 92 Oximetry 06/04/20 06/04/20 06/04/20 05:20 05:30 05:40 Temperature Pulse Rate 85 88 89 Pulse Rate [ From Monitor] Respiratory 44 H 34 H 40 H Rate Blood Pressure 119/74 119/74 119/74 O2 Sat by Pulse 91 93 91 Oximetry 06/04/20 06/04/20 06/04/20 05:50 06:00 06:10 Temperature Pulse Rate 91 H 89 86 Pulse Rate [ From Monitor] Respiratory 32 H 30 H 27 H Rate Blood Pressure 119/74 127/78 127/78 O2 Sat by Pulse 90 89 89 Oximetry 06/04/20 06/04/20 06/04/20 06:20 06:30 06:40 Temperature Pulse Rate 89 84 82 Pulse Rate [ From Monitor] Respiratory 25 H 41 H 49 H Rate Blood Pressure 127/78 127/78 127/78 O2 Sat by Pulse 88 89 89 Oximetry 06/04/20 06/04/20 06/04/20 06:50 07:00 07:10 Temperature Pulse Rate 83 84 83 Pulse Rate [ From Monitor] Respiratory 44 H 31 H 42 H Rate Blood Pressure 127/78 115/65 115/65 O2 Sat by Pulse 91 91 90 Oximetry 06/04/20 06/04/20 06/04/20 07:20 07:22 07:30 Temperature Pulse Rate 85 88 80 Pulse Rate [ From Monitor] Respiratory 18 35 H 45 H Rate Blood Pressure 115/65 115/65 O2 Sat by Pulse 89 92 89 Oximetry 06/04/20 06/04/20 06/04/20 07:40 07:50 08:00 Temperature 98.0 F Pulse Rate 83 86 82 Pulse Rate [ 82 From Monitor] Respiratory 29 H 40 H 42 H Rate Blood Pressure 115/65 115/65 144/89 O2 Sat by Pulse 89 89 92 Oximetry 06/04/20 06/04/20 06/04/20 08:10 08:20 08:30 Temperature Pulse Rate 84 85 85 Pulse Rate [ From Monitor] Respiratory 37 H 40 H 37 H Rate Blood Pressure 144/89 144/89 144/89 O2 Sat by Pulse 89 89 88 Oximetry 06/04/20 06/04/20 06/04/20 08:40 08:50 09:00 Temperature Pulse Rate 85 83 81 Pulse Rate [ From Monitor] Respiratory 37 H 33 H 44 H Rate Blood Pressure 144/89 144/89 139/89 O2 Sat by Pulse 89 92 91 Oximetry 06/04/20 06/04/20 06/04/20 09:10 09:20 09:30 Temperature Pulse Rate 82 84 81 Pulse Rate [ From Monitor] Respiratory 41 H 29 H 43 H Rate Blood Pressure 144/89 144/89 144/89 O2 Sat by Pulse 88 90 89 Oximetry 06/04/20 06/04/20 06/04/20 09:35 09:40 09:50 Temperature Pulse Rate 83 88 83 Pulse Rate [ From Monitor] Respiratory 37 H 38 H Rate Blood Pressure 139/69 139/89 139/89 O2 Sat by Pulse 90 96 Oximetry 06/04/20 06/04/20 06/04/20 10:00 10:10 10:20 Temperature Pulse Rate 84 82 82 Pulse Rate [ From Monitor] Respiratory 36 H 14 38 H Rate Blood Pressure 137/93 137/93 137/93 O2 Sat by Pulse 94 86 91 Oximetry 06/04/20 06/04/20 06/04/20 10:30 10:40 10:50 Temperature Pulse Rate 82 85 83 Pulse Rate [ From Monitor] Respiratory 33 H 47 H 43 H Rate Blood Pressure 137/93 137/93 137/93 O2 Sat by Pulse 90 91 89 Oximetry 06/04/20 06/04/20 11:00 11:06 Temperature Pulse Rate 82 90 Pulse Rate [ From Monitor] Respiratory 41 H 38 H Rate Blood Pressure 127/93 O2 Sat by Pulse 90 92 Oximetry CBC and BMP: 06/04/20 04:17 06/04/20 04:17 ABG, PT/INR, D-dimer: PT/INR, D-dimer PT 11.5 Sec. (12.2-14.9) L 05/31/20 15:23 INR 0.83 (0.87-1.13) L 05/31/20 15:23 D-Dimer 738.85 ng/mlDDU (0-234) H 05/31/20 16:49 Abnormal lab findings: Abnormal Labs 05/31/20 05/31/20 05/31/20 15:23 15:23 15:23 WBC RBC RDW Lymph % (Auto) Lymph # Seg Neutrophils % Seg Neuts % (Manual) Lymphocytes % (Manual) Seg Neutrophils # Seg Neutrophils # Man Lymphocytes # (Manual) Monocytes # (Manual) PT INR D-Dimer Sodium Potassium Chloride Carbon Dioxide BUN Creatinine Glucose 280 H POC Glucose Hemoglobin A1c Ferritin 583.4 H Lactate Dehydrogenase 392 H Total Creatine Kinase 325 H C-Reactive Protein 14.30 H Albumin Urine Creatinine Coronavirus (PCR) 05/31/20 05/31/20 05/31/20 15:23 15:23 15:23 WBC RBC RDW 15.7 H Lymph % (Auto) 12.9 L Lymph # 1.0 L Seg Neutrophils % 81.7 H Seg Neuts % (Manual) Lymphocytes % (Manual) Seg Neutrophils # Seg Neutrophils # Man Lymphocytes # (Manual) Monocytes # (Manual) PT 11.5 L INR 0.83 L D-Dimer Sodium 134 L Potassium Chloride 97.2 L Carbon Dioxide BUN 28 H Creatinine 3.0 H Glucose 279 H POC Glucose Hemoglobin A1c Ferritin Lactate Dehydrogenase Total Creatine Kinase C-Reactive Protein Albumin 3.3 L Urine Creatinine Coronavirus (PCR) 05/31/20 05/31/20 05/31/20 16:47 16:49 16:49 WBC RBC RDW Lymph % (Auto) Lymph # Seg Neutrophils % Seg Neuts % (Manual) Lymphocytes % (Manual) Seg Neutrophils # Seg Neutrophils # Man Lymphocytes # (Manual) Monocytes # (Manual) PT INR D-Dimer 738.85 H Sodium Potassium Chloride Carbon Dioxide BUN Creatinine Glucose 258 H POC Glucose 239 H Hemoglobin A1c Ferritin Lactate Dehydrogenase 409 H Total Creatine Kinase C-Reactive Protein 14.00 H Albumin Urine Creatinine Coronavirus (PCR) 05/31/20 05/31/20 06/01/20 16:49 16:49 10:15 WBC RBC RDW Lymph % (Auto) Lymph # Seg Neutrophils % Seg Neuts % (Manual) Lymphocytes % (Manual) Seg Neutrophils # Seg Neutrophils # Man Lymphocytes # (Manual) Monocytes # (Manual) PT INR D-Dimer Sodium Potassium Chloride Carbon Dioxide BUN Creatinine Glucose POC Glucose 277 H Hemoglobin A1c 8.5 H Ferritin 599.0 H Lactate Dehydrogenase Total Creatine Kinase C-Reactive Protein Albumin Urine Creatinine Coronavirus (PCR) 06/01/20 06/01/20 06/01/20 13:41 13:41 16:10 WBC RBC RDW 15.3 H Lymph % (Auto) 8.4 L Lymph # 0.9 L Seg Neutrophils % 86.9 H Seg Neuts % (Manual) Lymphocytes % (Manual) Seg Neutrophils # 9.3 H Seg Neutrophils # Man Lymphocytes # (Manual) Monocytes # (Manual) PT INR D-Dimer Sodium 136 L Potassium 5.5 H Chloride Carbon Dioxide 20 L BUN 42 H Creatinine 3.5 H Glucose 278 H POC Glucose 372 H Hemoglobin A1c Ferritin Lactate Dehydrogenase Total Creatine Kinase C-Reactive Protein Albumin Urine Creatinine Coronavirus (PCR) 06/01/20 06/01/20 06/01/20 23:12 Unknown Unknown WBC RBC RDW Lymph % (Auto) Lymph # Seg Neutrophils % Seg Neuts % (Manual) Lymphocytes % (Manual) Seg Neutrophils # Seg Neutrophils # Man Lymphocytes # (Manual) Monocytes # (Manual) PT INR D-Dimer Sodium Potassium Chloride Carbon Dioxide BUN Creatinine Glucose POC Glucose 398 H Hemoglobin A1c Ferritin Lactate Dehydrogenase Total Creatine Kinase C-Reactive Protein Albumin Urine Creatinine 161.6 H Coronavirus (PCR) Positive A 06/02/20 06/02/20 06/02/20 04:55 04:55 05:33 WBC 14.7 H RBC RDW 15.4 H Lymph % (Auto) 7.1 L Lymph # 1.1 L Seg Neutrophils % 89.3 H Seg Neuts % (Manual) Lymphocytes % (Manual) Seg Neutrophils # 13.2 H Seg Neutrophils # Man Lymphocytes # (Manual) Monocytes # (Manual) PT INR D-Dimer Sodium 136 L Potassium Chloride 97.2 L Carbon Dioxide 21 L BUN 47 H Creatinine 3.5 H Glucose 244 H POC Glucose 262 H Hemoglobin A1c Ferritin Lactate Dehydrogenase Total Creatine Kinase C-Reactive Protein Albumin 3.2 L Urine Creatinine Coronavirus (PCR) 06/02/20 06/02/20 06/02/20 10:55 16:49 22:15 WBC RBC RDW Lymph % (Auto) Lymph # Seg Neutrophils % Seg Neuts % (Manual) Lymphocytes % (Manual) Seg Neutrophils # Seg Neutrophils # Man Lymphocytes # (Manual) Monocytes # (Manual) PT INR D-Dimer Sodium Potassium Chloride Carbon Dioxide BUN Creatinine Glucose POC Glucose 160 H 214 H 292 H Hemoglobin A1c Ferritin Lactate Dehydrogenase Total Creatine Kinase C-Reactive Protein Albumin Urine Creatinine Coronavirus (PCR) 06/02/20 06/03/20 06/03/20 23:47 05:18 05:18 WBC 18.4 H RBC RDW 15.3 H Lymph % (Auto) Lymph # Seg Neutrophils % Seg Neuts % (Manual) 91.0 H Lymphocytes % (Manual) 8.0 L Seg Neutrophils # Seg Neutrophils # Man 16.7 H Lymphocytes # (Manual) Monocytes # (Manual) PT INR D-Dimer Sodium Potassium Chloride Carbon Dioxide 20 L BUN 50 H Creatinine 3.1 H Glucose 248 H POC Glucose 292 H Hemoglobin A1c Ferritin Lactate Dehydrogenase Total Creatine Kinase C-Reactive Protein Albumin 2.8 L Urine Creatinine Coronavirus (PCR) 06/03/20 06/03/20 06/03/20 05:20 11:40 13:06 WBC RBC RDW Lymph % (Auto) Lymph # Seg Neutrophils % Seg Neuts % (Manual) Lymphocytes % (Manual) Seg Neutrophils # Seg Neutrophils # Man Lymphocytes # (Manual) Monocytes # (Manual) PT INR D-Dimer Sodium Potassium Chloride Carbon Dioxide BUN Creatinine Glucose POC Glucose 208 H 180 H 167 H Hemoglobin A1c Ferritin Lactate Dehydrogenase Total Creatine Kinase C-Reactive Protein Albumin Urine Creatinine Coronavirus (PCR) 06/03/20 06/04/20 06/04/20 16:58 00:07 04:17 WBC 20.8 H RBC 5.20 H RDW 15.7 H Lymph % (Auto) Lymph # Seg Neutrophils % Seg Neuts % (Manual) 91.0 H Lymphocytes % (Manual) 4.0 L Seg Neutrophils # Seg Neutrophils # Man 18.9 H Lymphocytes # (Manual) 0.8 L Monocytes # (Manual) 1.0 H PT INR D-Dimer Sodium Potassium Chloride Carbon Dioxide BUN Creatinine Glucose POC Glucose 152 H 206 H Hemoglobin A1c Ferritin Lactate Dehydrogenase Total Creatine Kinase C-Reactive Protein Albumin Urine Creatinine Coronavirus (PCR) 06/04/20 06/04/20 04:17 05:35 WBC RBC RDW Lymph % (Auto) Lymph # Seg Neutrophils % Seg Neuts % (Manual) Lymphocytes % (Manual) Seg Neutrophils # Seg Neutrophils # Man Lymphocytes # (Manual) Monocytes # (Manual) PT INR D-Dimer Sodium 135 L Potassium 5.1 H Chloride 97.8 L Carbon Dioxide 20 L BUN 56 H Creatinine 3.1 H Glucose 178 H POC Glucose 166 H Hemoglobin A1c Ferritin Lactate Dehydrogenase Total Creatine Kinase C-Reactive Protein Albumin 3.0 L Urine Creatinine Coronavirus (PCR)
--- NOTE | 2020-06-04 15:51 | Progress Note ---
Assessment and Plan Assessment and plan: 54 year old male presenting with shortness of breath, with hypoxia on admission, saturation in the low 80s. PMHx of HTN PCP- Calin alicia Home med: ANTONIO, METOPROLOL, LORSTAN, HYDRALAZIN AND AMYLODPIN CXR: Bilateral lobar inflitrates- My own read 06/02: Continue current management. Patient on high flow. If can tolerate prone recommend prone position during hours of sleep. 06/03: Continue supportive care. Overall prognosis is guarded. Will discuss proceed with obtaining consent for convalescent plasma. Poor prognosis considering COVID-19 and complicated by renal failure. 06/04: Continue current therapy consent obtained for convalescent plasma. Will discuss with laboratory to obtain the plasma. Acute Hypoxic Respiratory failure 2019 novel sampson virus Pneumonia Bilateral penumonia KEITH WITH VASOMOTOR NEPHROPATHY ON CKD Stage 3 HTN DM with hyperglycemia Plan Continue support care Pulmonary and ID consult in put noted Started on steroids Remdesivir precluded due to renal function Start on Abx Labs pending Blood cultures Aspiration precautions DVT/GI prophy Plan discussed with the patient The high probability of a clinically significant, sudden or life threatening deterioration of the [pulmonary] system(s) required my full and direct attention, intervention and personal management. The aggregate critical care time was [35] minutes. This time is in addition to time spent performing reported procedures but includes the following: [x] Data Review and interpretation [x] Patient assessment and monitoring of vital signs [x] Documentation [x] Medication orders and management History Interval history: Patient seen and examined still on high flow due to persist hypoxia but no other complaints Hospitalist Physical - Physical exam Narrative exam: VITAL SIGNS: Reviewed. GENERAL: The patient appears normally developed, obese vital signs as document ed. HEAD: No signs of head trauma. EYES: Pupils are equal. Extraocular motions intact. EARS: Hearing grossly intact. MOUTH: Oropharynx is normal. NECK: No adenopathy, no JVD. CHEST: Rapid respiratory rate chest with diminished breath sounds bilaterally. No wheezes, rales, or rhonchi. CARDIAC: Regular rate and rhythm. S1 and S2, without murmurs, gallops, or rubs. VASCULAR: No Edema. Peripheral pulses normal and equal in all extremities. ABDOMEN: Soft, non tender and non distended. No rebound or guarding, and no masses palpated. Bowel Sounds normal. MUSCULOSKELETAL: Good range of motion of all major joints. Extremities without clubbing, cyanosis or edema. NEUROLOGIC EXAM: Awake but lethargic and oriented x 3 No focal sensory or strength deficits. Speech normal. Follows commands. PSYCHIATRIC: Mood normal. SKIN: detail exam as documented in skin assessment - Constitutional Vitals: Temp Pulse Resp BP Pulse Ox 98.0 F 84 39 H 148/90 91 06/04/20 08:00 06/04/20 14:30 06/04/20 14:30 06/04/20 14:30 06/04/20 14:30 HEART Score - HEART Score Troponin: Troponin T 0.021 ng/mL (0.00-0.029) 05/31/20 15:23 Results - Labs CBC & Chem 7: 06/04/20 04:17 06/04/20 04:17 Labs: Laboratory Last Values WBC 20.8 K/mm3 (4.5-11.0) H 06/04/20 04:17 RBC 5.20 M/mm3 (3.65-5.03) H 06/04/20 04:17 Hgb 15.0 gm/dl (11.8-15.2) 06/04/20 04:17 Hct 45.0 % (35.5-45.6) 06/04/20 04:17 MCV 87 fl (84-94) 06/04/20 04:17 MCH 29 pg (28-32) 06/04/20 04:17 MCHC 33 % (32-34) 06/04/20 04:17 RDW 15.7 % (13.2-15.2) H 06/04/20 04:17 Plt Count 350 K/mm3 (140-440) 06/04/20 04:17 Lymph % (Auto) 7.1 % (13.4-35.0) L 06/02/20 04:55 Maury % (Auto) 3.4 % (0.0-7.3) 06/02/20 04:55 Eos % (Auto) 0.0 % (0.0-4.3) 06/02/20 04:55 Baso % (Auto) 0.2 % (0.0-1.8) 06/02/20 04:55 Lymph # 1.1 K/mm3 (1.2-5.4) L 06/02/20 04:55 Maury # 0.5 K/mm3 (0.0-0.8) 06/02/20 04:55 Eos # 0.0 K/mm3 (0.0-0.4) 06/02/20 04:55 Baso # 0.0 K/mm3 (0.0-0.1) 06/02/20 04:55 Add Manual Diff Complete 06/04/20 04:17 Total Counted 100 06/04/20 04:17 Seg Neutrophils % Adapted Physical Education Teacher 06/04/20 04:17 Seg Neuts % (Manual) 91.0 % (40.0-70.0) H 06/04/20 04:17 Band Neutrophils % 0 % 06/04/20 04:17 Lymphocytes % (Manual) 4.0 % (13.4-35.0) L 06/04/20 04:17 Reactive Lymphs % (Man) 0 % 06/04/20 04:17 Monocytes % (Manual) 5.0 % (0.0-7.3) 06/04/20 04:17 Eosinophils % (Manual) 0 % (0.0-4.3) 06/04/20 04:17 Basophils % (Manual) 0 % (0.0-1.8) 06/04/20 04:17 Metamyelocytes % 0 % 06/04/20 04:17 Myelocytes % 0 % 06/04/20 04:17 Promyelocytes % 0 % 06/04/20 04:17 Blast Cells % 0 % 06/04/20 04:17 Nucleated RBC % Not Reportable 06/04/20 04:17 Seg Neutrophils # 13.2 K/mm3 (1.8-7.7) H 06/02/20 04:55 Seg Neutrophils # Man 18.9 K/mm3 (1.8-7.7) H 06/04/20 04:17 Band Neutrophils # 0.0 K/mm3 06/04/20 04:17 Lymphocytes # (Manual) 0.8 K/mm3 (1.2-5.4) L 06/04/20 04:17 Abs React Lymphs (Man) 0.0 K/mm3 06/04/20 04:17 Monocytes # (Manual) 1.0 K/mm3 (0.0-0.8) H 06/04/20 04:17 Eosinophils # (Manual) 0.0 K/mm3 (0.0-0.4) 06/04/20 04:17 Basophils # (Manual) 0.0 K/mm3 (0.0-0.1) 06/04/20 04:17 Metamyelocytes # 0.0 K/mm3 06/04/20 04:17 Myelocytes # 0.0 K/mm3 06/04/20 04:17 Promyelocytes # 0.0 K/mm3 06/04/20 04:17 Blast Cells # 0.0 K/mm3 06/04/20 04:17 WBC Morphology Not Reportable 06/04/20 04:17 Hypersegmented Neuts Not Reportable 06/04/20 04:17 Hyposegmented Neuts Not Reportable 06/04/20 04:17 Hypogranular Neuts Not Reportable 06/04/20 04:17 Smudge Cells Not Reportable 06/04/20 04:17 Toxic Granulation Not Reportable 06/04/20 04:17 Toxic Vacuolation Not Reportable 06/04/20 04:17 Dohle Bodies Not Reportable 06/04/20 04:17 Pelger-Huet Anomaly Not Reportable 06/04/20 04:17 Edwige Rods Not Reportable 06/04/20 04:17 Platelet Estimate Consistent w auto 06/04/20 04:17 Clumped Platelets Not Reportable 06/04/20 04:17 Plt Clumps, EDTA Not Reportable 06/04/20 04:17 Large Platelets Not Reportable 06/04/20 04:17 Giant Platelets Not Reportable 06/04/20 04:17 Platelet Satelliting Not Reportable 06/04/20 04:17 Plt Morphology Comment Not Reportable 06/04/20 04:17 RBC Morphology Not Reportable 06/04/20 04:17 Dimorphic RBCs Not Reportable 06/04/20 04:17 Polychromasia Not Reportable 06/04/20 04:17 Hypochromasia Not Reportable 06/04/20 04:17 Poikilocytosis Not Reportable 06/04/20 04:17 Anisocytosis Not Reportable 06/04/20 04:17 Microcytosis Not Reportable 06/04/20 04:17 Macrocytosis Not Reportable 06/04/20 04:17 Spherocytes Not Reportable 06/04/20 04:17 Pappenheimer Bodies Not Reportable 06/04/20 04:17 Sickle Cells Not Reportable 06/04/20 04:17 Target Cells Few 06/04/20 04:17 Tear Drop Cells Not Reportable 06/04/20 04:17 Ovalocytes Not Reportable 06/04/20 04:17 Helmet Cells Not Reportable 06/04/20 04:17 Sanchez-Kerby Bodies Not Reportable 06/04/20 04:17 [place] Rings Not Reportable 06/04/20 04:17 Mary Cells Not Reportable 06/04/20 04:17 Bite Cells Not Reportable 06/04/20 04:17 Crenated Cell Not Reportable 06/04/20 04:17 Elliptocytes Not Reportable 06/04/20 04:17 Acanthocytes (Spur) Not Reportable 06/04/20 04:17 Rouleaux Not Reportable 06/04/20 04:17 Hemoglobin C Crystals Not Reportable 06/04/20 04:17 Schistocytes Not Reportable 06/04/20 04:17 Malaria parasites Not Reportable 06/04/20 04:17 Edinson Bodies Not Reportable 06/04/20 04:17 Hem Pathologist Commnt No 06/04/20 04:17 PT 11.5 Sec. (12.2-14.9) L 05/31/20 15:23 INR 0.83 (0.87-1.13) L 05/31/20 15:23 D-Dimer 738.85 ng/mlDDU (0-234) H 05/31/20 16:49 Sodium 135 mmol/L (137-145) L 06/04/20 04:17 Potassium 5.1 mmol/L (3.6-5.0) H 06/04/20 04:17 Chloride 97.8 mmol/L (98-107) L 06/04/20 04:17 Carbon Dioxide 20 mmol/L (22-30) L 06/04/20 04:17 Anion Gap 22 mmol/L 06/04/20 04:17 BUN 56 mg/dL (9-20) H 06/04/20 04:17 Creatinine 3.1 mg/dL (0.8-1.3) H 06/04/20 04:17 Estimated GFR 25 ml/min 06/04/20 04:17 BUN/Creatinine Ratio 18 % 06/04/20 04:17 Glucose 178 mg/dL (75-100) H 06/04/20 04:17 POC Glucose 159 (70-105) H 06/04/20 11:08 Hemoglobin A1c 8.5 % (4-6) H 05/31/20 16:49 Calcium 9.6 mg/dL (8.4-10.2) 06/04/20 04:17 Magnesium 2.20 mg/dL (1.7-2.3) 05/31/20 15:23 Ferritin 599.0 ng/mL (30.0-300.0) H 05/31/20 16:49 Total Bilirubin 0.40 mg/dL (0.1-1.2) 06/04/20 04:17 AST 23 units/L (5-40) 06/04/20 04:17 ALT 27 units/L (7-56) 06/04/20 04:17 Alkaline Phosphatase 86 units/L (35-129) 06/04/20 04:17 Lactate Dehydrogenase 409 units/L (91-180) H 05/31/20 16:49 Total Creatine Kinase 325 units/L (55-170) H 05/31/20 15:23 Troponin T 0.021 ng/mL (0.00-0.029) 05/31/20 15:23 C-Reactive Protein 14.00 mg/dL (0.00-1.30) H 05/31/20 16:49 NT-Pro-B Natriuret Pep 111.3 pg/mL (0-900) 06/01/20 13:41 Total Protein 8.1 g/dL (6.3-8.2) 06/04/20 04:17 Albumin 3.0 g/dL (3.9-5) L 06/04/20 04:17 Albumin/Globulin Ratio 0.6 % 06/04/20 04:17 Procalcitonin 0.33 ng/mL (<0.15) 05/31/20 16:49 Urine Color Yellow (Yellow) 06/01/20 Unknown Urine Turbidity Clear (Clear) 06/01/20 Unknown Urine pH 5.0 (5.0-7.0) 06/01/20 Unknown Ur Specific Tucker 1.018 (1.003-1.030) 06/01/20 Unknown Urine Protein >500 mg/dL (Negative) 06/01/20 Unknown Urine Glucose (UA) >=500 mg/dL (Negative) 06/01/20 Unknown Urine Ketones Tr mg/dL (Negative) 06/01/20 Unknown Urine Blood Mod (Negative) 06/01/20 Unknown Urine Nitrite Neg (Negative) 06/01/20 Unknown Urine Bilirubin Neg (Negative) 06/01/20 Unknown Urine Urobilinogen < 2.0 mg/dL (<2.0) 06/01/20 Unknown Ur Leukocyte Esterase Neg (Negative) 06/01/20 Unknown Urine WBC (Auto) 4.0 /HPF (0.0-6.0) 06/01/20 Unknown Urine RBC (Auto) 9.0 /HPF (0.0-6.0) 06/01/20 Unknown U Epithel Cells (Auto) 1.0 /HPF (0-13.0) 06/01/20 Unknown Urine Mucus Few /HPF 06/01/20 Unknown Urine Eosinophils None seen (None Seen) 06/01/20 Unknown Urine Creatinine 161.6 mg/dL (0.1-20.0) H 06/01/20 Unknown Urine Sodium 47 mmol/L 06/01/20 Unknown Coronavirus (PCR) Positive (Negative) A 06/01/20 Unknown Hepatitis A IgM Ab Non-reactive (NonReactive) 06/03/20 10:39 Hep Bs Antigen Non-reactive (Negative) 06/03/20 10:39 Hep B Core IgM Ab Non-reactive (NonReactive) 06/03/20 10:39 Hepatitis C Antibody Non-reactive (NonReactive) 06/03/20 10:39 Microbiology: Microbiology 05/31/20 15:23 Peripheral/Venous Blood Culture - Preliminary NO GROWTH AFTER 72 HOURS 05/31/20 15:26 Peripheral/Venous Blood Culture - Preliminary NO GROWTH AFTER 72 HOURS Hess/IV: Voiding Method Urinal IV Catheter Type [Right INT / Saline Lock Antecubital] Active Medications - Current Medications Current Medications: Generic Name Dose Route Start Last Admin Trade Name Freq PRN Reason Stop Dose Admin Acetaminophen 650 mg 05/31/20 15:49 Tylenol PO Q6H PRN Pain MILD(1-3)/Fever >100.5/LEBRON Albuterol 2.5 mg 05/31/20 15:49 Proventil IH Q3HRT PRN Shortness Of Breath Amlodipine Besylate 10 mg 06/01/20 10:00 06/04/20 09:35 Amlodipine PO 10 mg DAILY CHERI Administration Atorvastatin Calcium 20 mg 05/31/20 22:00 06/03/20 21:23 Lipitor PO 20 mg QHS CHERI Administration Bisacodyl 10 mg 05/31/20 15:57 Dulcolax KS QDAY PRN Constipation unrelieved by MOM Chlorpromazine HCl 10 mg 05/31/20 15:57 Thorazine PO Q6H PRN Hiccups Dexamethasone 6 mg 06/01/20 10:00 06/04/20 09:33 Decadron PO 06/11/20 09:59 6 mg DAILY CHERI Administration Dextrose 50 ml 05/31/20 15:59 D50w (25gm) Syringe IV Q30MIN PRN Hypoglycemia Protocol Enoxaparin Sodium 30 mg 06/01/20 10:00 06/04/20 09:33 Enoxaparin SUB-Q 30 mg QDAY CHERI Administration Insulin Glargine 100 units 05/31/20 22:00 06/03/20 21:19 Lantus SUB-Q 100 units QHS CHERI Administration Insulin Human Lispro 0 unit 05/31/20 16:00 06/04/20 11:00 Humalog SUB-Q 3 unit Q6H CHERI Administration Protocol Naloxone HCl 0.1 mg 05/31/20 15:49 Naloxone IV Q2MIN PRN Res Rate </= 8 or 02 SAT < 92% Ondansetron HCl 4 mg 05/31/20 15:57 Zofran IV Q8H PRN N/V unrelieved by Reglan Oxycodone/Acetaminophen 1 tab 05/31/20 15:49 06/03/20 00:57 Percocet 5/325 PO 1 tab Q6H PRN Administration Pain, Moderate (4-6) Sodium Chloride 10 ml 05/31/20 22:00 06/04/20 09:34 Sodium Chloride Flush Syringe 10 Ml IV 10 ml BID CHERI Administration Sodium Chloride 10 ml 05/31/20 15:49 Sodium Chloride Flush Syringe 10 Ml IV PRN PRN LINE FLUSH Tizanidine HCl 4 mg 05/31/20 15:57 Zanaflex PO Q8H PRN Muscle Spasm Nutrition/Malnutrition Assess - Dietary Evaluation Nutrition/Malnutrition Findings: Nutrition Notes Start: 06/01/20 10:42 Freq: Status: Active Protocol: Document 06/03/20 12:46 LM (Rec: 06/03/20 12:52 LM [email or web address]) Nutrition Notes Initial or Follow up Brief Note Current Diagnosis CKD(stage I-IV),Diabetes, Hypertension,Stroke Other Pertinent Diagnosis COVID-19 (+) Current Diet Renal Labs/Tests BUN 50 Cr 3.1 BG 248 Pertinent Medications Humalog Lantus Subjective/Other Information Unable to reach pt by phone. Nutrition Intervention Follow-Up By: 06/06/20 Additional Comments F/U for diet education
--- NOTE | 2020-06-04 16:57 | Progress Note ---
Assessment and Plan Cultures: Coronavirus PCR:positive Blood culture: no growth A/P: 54-year-old male with diabetes, CKD, prior CVA, obesity was admitted to the hospital with complaints of cough, shortness of breath along with fatigue and malaise: #Severe COVID pneumonia: CRP 14.0, LDH 409, ferritin 599, Ddimer 738. #Acute hypoxic respiratory failure: on high flow. #KEITH on CKD Recs: Continue IV/PO Dexamethasone 6 mg daily x 10 days Not a candidate for Remdesivir due to renal failure trend ferritin, LDH, d-dimer, CRP every 2-3 days for risk stratification and to assess disease progression prophylactic anticoagulation based on d-dimer Ordered repeat procalcitonin due to elevated white count, however that may just be due to steroids. Darby Redding MD [facility] M: [phone] O: [phone] F: [phone] Subjective Date of service: 06/04/20 Principal diagnosis: keith Interval history: Afebrile, white count is 21. On BiPAP. Objective - Exam Narrative Exam: Physical exam deferred due to PPE conservation strategy. Please refer to primary team's note. - Constitutional Vitals: Vital Signs Temp Pulse Resp BP Pulse Ox 98.0 F 82 37 H 139/100 91 06/04/20 08:00 06/04/20 16:00 06/04/20 16:00 06/04/20 16:00 06/04/20 16:00 Temperature -Last 24 Hours Temperature 98.0 F Temperature 98.8 F Temperature 98.4 F Temperature 98.2 F - Labs CBC & Chem 7: 06/04/20 04:17 06/04/20 04:17 Labs: Abnormal lab results 06/03/20 06/04/20 06/04/20 Range/Units 13:06 00:07 04:17 WBC 20.8 H (4.5-11.0) K/mm3 RBC 5.20 H (3.65-5.03) M/mm3 RDW 15.7 H (13.2-15.2) % Seg Neuts % (Manual) 91.0 H (40.0-70.0) % Lymphocytes % (Manual) 4.0 L (13.4-35.0) % Seg Neutrophils # Man 18.9 H (1.8-7.7) K/mm3 Lymphocytes # (Manual) 0.8 L (1.2-5.4) K/mm3 Monocytes # (Manual) 1.0 H (0.0-0.8) K/mm3 Sodium (137-145) mmol/L Potassium (3.6-5.0) mmol/L Chloride (98-107) mmol/L Carbon Dioxide (22-30) mmol/L BUN (9-20) mg/dL Creatinine (0.8-1.3) mg/dL Glucose (75-100) mg/dL POC Glucose 167 H 206 H (70-105) Albumin (3.9-5) g/dL 06/04/20 06/04/20 06/04/20 Range/Units 04:17 05:35 11:08 WBC (4.5-11.0) K/mm3 RBC (3.65-5.03) M/mm3 RDW (13.2-15.2) % Seg Neuts % (Manual) (40.0-70.0) % Lymphocytes % (Manual) (13.4-35.0) % Seg Neutrophils # Man (1.8-7.7) K/mm3 Lymphocytes # (Manual) (1.2-5.4) K/mm3 Monocytes # (Manual) (0.0-0.8) K/mm3 Sodium 135 L (137-145) mmol/L Potassium 5.1 H (3.6-5.0) mmol/L Chloride 97.8 L (98-107) mmol/L Carbon Dioxide 20 L (22-30) mmol/L BUN 56 H (9-20) mg/dL Creatinine 3.1 H (0.8-1.3) mg/dL Glucose 178 H (75-100) mg/dL POC Glucose 166 H 159 H (70-105) Albumin 3.0 L (3.9-5) g/dL
[2020-06-04] MEDS: INSULIN GLARGINE 100 UNITS/ML SUB-Q SCH (21:56)
[2020-06-05] MEDS: INSULIN LISPRO 100 UNIT/ML VIAL 3 mL SUB-Q SCH ×4 (00:56→17:35)
[2020-06-05 05:57] LABS: Hematocrit 42.6 % (35.5-45.6); Hemoglobin 14.5 gm/dl (11.8-15.2); Mean Corpuscular HGB Conc 34 % (32-34); Mean Corpuscular Volume 87 fl (84-94); Platelet Count 328 K/mm3 (140-440); Red Blood Count 4.89 M/mm3 (3.65-5.03); Red Cell Distribution Width 15.6 % (13.2-15.2)
[2020-06-05 05:58] LABS: Basophils % (Auto) 0.2 % (0.0-1.8); Lymphocytes # (Auto) 0.9 K/mm3 (1.2-5.4); Lymphocytes % (Auto) 4.7 % (13.4-35.0); Monocytes % (Auto) 4.8 % (0.0-7.3)
[2020-06-05 06:14] LABS: Calcium 8.8 mg/dL (8.4-10.2)
--- NOTE | 2020-06-05 07:28 | Progress Note ---
Assessment and Plan 54 y/o male with acute respiratory failure, concern for COVID 19 pneumonia and possibly acute renal failure 1. Wean FiO2 for sats >88% 2. Agree with steroids as ordered by ID, unfortunately not a candidate for remdesivir given renal function 3. Suggest consent for convaslescent plasma, do not know if this has been asked about yet. 4. Prone as much as tolerated during the day and sleep prone at night 5. Follow up renal recs, NO HD per them 6. overall prognosis is guarded, COVID results are not back yet, but renal failure and COVID have been shows to see worse clinical outcomes. Subjective Date of service: 06/05/20 Principal diagnosis: talia Interval history: Remains with sats in the high 80's on NRB and HFNC at 100%. tolerates bipap at night and PRN during the day. Renal function not better. Remains on steroids. Objective Vital Signs - 12hr 06/04/20 06/04/20 06/04/20 19:30 20:00 20:30 Temperature 98.1 F Pulse Rate 92 H 94 H 95 H Pulse Rate [ 94 H From Monitor] Respiratory 40 H 35 H 24 Rate Blood Pressure 117/93 117/93 136/63 O2 Sat by Pulse 82 L 84 86 Oximetry 06/04/20 06/04/20 06/04/20 21:00 21:27 21:31 Temperature Pulse Rate 96 H 93 H Pulse Rate [ From Monitor] Respiratory 24 28 H Rate Blood Pressure 136/63 156/94 O2 Sat by Pulse 89 85 87 Oximetry 06/04/20 06/04/20 06/04/20 21:38 22:00 22:31 Temperature Pulse Rate 93 H 95 H 96 H Pulse Rate [ From Monitor] Respiratory 19 22 22 Rate Blood Pressure 156/94 161/78 161/78 O2 Sat by Pulse 84 81 L 86 Oximetry 06/04/20 06/04/20 06/04/20 23:01 23:31 23:50 Temperature Pulse Rate 93 H 93 H 85 Pulse Rate [ From Monitor] Respiratory 40 H 32 H 30 H Rate Blood Pressure 114/33 114/33 114/33 O2 Sat by Pulse 77 L 82 L 93 Oximetry 06/05/20 06/05/20 06/05/20 00:00 00:31 01:00 Temperature 98.3 F Pulse Rate 89 87 84 Pulse Rate [ 87 From Monitor] Respiratory 37 H 38 H 35 H Rate Blood Pressure 155/95 155/95 152/87 O2 Sat by Pulse 92 93 96 Oximetry 06/05/20 06/05/20 06/05/20 01:31 02:00 02:31 Temperature Pulse Rate 83 84 86 Pulse Rate [ From Monitor] Respiratory 33 H 26 H 21 Rate Blood Pressure 152/87 155/53 155/53 O2 Sat by Pulse 94 90 92 Oximetry 06/05/20 06/05/20 06/05/20 03:00 03:31 04:00 Temperature 98.8 F Pulse Rate 83 81 81 Pulse Rate [ 91 H From Monitor] Respiratory 35 H 22 30 H Rate Blood Pressure 133/90 133/90 O2 Sat by Pulse 88 92 91 Oximetry 06/05/20 06/05/20 06/05/20 04:01 04:31 05:00 Temperature Pulse Rate 77 72 84 Pulse Rate [ From Monitor] Respiratory 29 H 18 34 H Rate Blood Pressure 142/43 142/43 136/85 O2 Sat by Pulse 92 93 93 Oximetry 06/05/20 06/05/20 05:31 06:00 Temperature Pulse Rate 75 74 Pulse Rate [ From Monitor] Respiratory 21 20 Rate Blood Pressure 136/85 146/98 O2 Sat by Pulse 94 93 Oximetry CBC and BMP: 06/05/20 04:56 06/05/20 04:56 ABG, PT/INR, D-dimer: PT/INR, D-dimer PT 11.5 Sec. (12.2-14.9) L 05/31/20 15:23 INR 0.83 (0.87-1.13) L 05/31/20 15:23 D-Dimer 738.85 ng/mlDDU (0-234) H 05/31/20 16:49 Abnormal lab findings: Abnormal Labs 05/31/20 05/31/20 05/31/20 15:23 15:23 15:23 WBC RBC RDW Lymph % (Auto) Lymph # [place] # Seg Neutrophils % Seg Neuts % (Manual) Lymphocytes % (Manual) Seg Neutrophils # Seg Neutrophils # Man Lymphocytes # (Manual) Monocytes # (Manual) PT INR D-Dimer Sodium Potassium Chloride Carbon Dioxide BUN Creatinine Glucose 280 H POC Glucose Hemoglobin A1c Ferritin 583.4 H Lactate Dehydrogenase 392 H Total Creatine Kinase 325 H C-Reactive Protein 14.30 H Albumin Urine Creatinine Coronavirus (PCR) 05/31/20 05/31/20 05/31/20 15:23 15:23 15:23 WBC RBC RDW 15.7 H Lymph % (Auto) 12.9 L Lymph # 1.0 L [place] # Seg Neutrophils % 81.7 H Seg Neuts % (Manual) Lymphocytes % (Manual) Seg Neutrophils # Seg Neutrophils # Man Lymphocytes # (Manual) Monocytes # (Manual) PT 11.5 L INR 0.83 L D-Dimer Sodium 134 L Potassium Chloride 97.2 L Carbon Dioxide BUN 28 H Creatinine 3.0 H Glucose 279 H POC Glucose Hemoglobin A1c Ferritin Lactate Dehydrogenase Total Creatine Kinase C-Reactive Protein Albumin 3.3 L Urine Creatinine Coronavirus (PCR) 05/31/20 05/31/20 05/31/20 16:47 16:49 16:49 WBC RBC RDW Lymph % (Auto) Lymph # [place] # Seg Neutrophils % Seg Neuts % (Manual) Lymphocytes % (Manual) Seg Neutrophils # Seg Neutrophils # Man Lymphocytes # (Manual) Monocytes # (Manual) PT INR D-Dimer 738.85 H Sodium Potassium Chloride Carbon Dioxide BUN Creatinine Glucose 258 H POC Glucose 239 H Hemoglobin A1c Ferritin Lactate Dehydrogenase 409 H Total Creatine Kinase C-Reactive Protein 14.00 H Albumin Urine Creatinine Coronavirus (PCR) 05/31/20 05/31/20 06/01/20 16:49 16:49 10:15 WBC RBC RDW Lymph % (Auto) Lymph # [place] # Seg Neutrophils % Seg Neuts % (Manual) Lymphocytes % (Manual) Seg Neutrophils # Seg Neutrophils # Man Lymphocytes # (Manual) Monocytes # (Manual) PT INR D-Dimer Sodium Potassium Chloride Carbon Dioxide BUN Creatinine Glucose POC Glucose 277 H Hemoglobin A1c 8.5 H Ferritin 599.0 H Lactate Dehydrogenase Total Creatine Kinase C-Reactive Protein Albumin Urine Creatinine Coronavirus (PCR) 06/01/20 06/01/20 06/01/20 13:41 13:41 16:10 WBC RBC RDW 15.3 H Lymph % (Auto) 8.4 L Lymph # 0.9 L [place] # Seg Neutrophils % 86.9 H Seg Neuts % (Manual) Lymphocytes % (Manual) Seg Neutrophils # 9.3 H Seg Neutrophils # Man Lymphocytes # (Manual) Monocytes # (Manual) PT INR D-Dimer Sodium 136 L Potassium 5.5 H Chloride Carbon Dioxide 20 L BUN 42 H Creatinine 3.5 H Glucose 278 H POC Glucose 372 H Hemoglobin A1c Ferritin Lactate Dehydrogenase Total Creatine Kinase C-Reactive Protein Albumin Urine Creatinine Coronavirus (PCR) 06/01/20 06/01/20 06/01/20 23:12 Unknown Unknown WBC RBC RDW Lymph % (Auto) Lymph # [place] # Seg Neutrophils % Seg Neuts % (Manual) Lymphocytes % (Manual) Seg Neutrophils # Seg Neutrophils # Man Lymphocytes # (Manual) Monocytes # (Manual) PT INR D-Dimer Sodium Potassium Chloride Carbon Dioxide BUN Creatinine Glucose POC Glucose 398 H Hemoglobin A1c Ferritin Lactate Dehydrogenase Total Creatine Kinase C-Reactive Protein Albumin Urine Creatinine 161.6 H Coronavirus (PCR) Positive A 06/02/20 06/02/20 06/02/20 04:55 04:55 05:33 WBC 14.7 H RBC RDW 15.4 H Lymph % (Auto) 7.1 L Lymph # 1.1 L [place] # Seg Neutrophils % 89.3 H Seg Neuts % (Manual) Lymphocytes % (Manual) Seg Neutrophils # 13.2 H Seg Neutrophils # Man Lymphocytes # (Manual) Monocytes # (Manual) PT INR D-Dimer Sodium 136 L Potassium Chloride 97.2 L Carbon Dioxide 21 L BUN 47 H Creatinine 3.5 H Glucose 244 H POC Glucose 262 H Hemoglobin A1c Ferritin Lactate Dehydrogenase Total Creatine Kinase C-Reactive Protein Albumin 3.2 L Urine Creatinine Coronavirus (PCR) 06/02/20 06/02/20 06/02/20 10:55 16:49 22:15 WBC RBC RDW Lymph % (Auto) Lymph # [place] # Seg Neutrophils % Seg Neuts % (Manual) Lymphocytes % (Manual) Seg Neutrophils # Seg Neutrophils # Man Lymphocytes # (Manual) Monocytes # (Manual) PT INR D-Dimer Sodium Potassium Chloride Carbon Dioxide BUN Creatinine Glucose POC Glucose 160 H 214 H 292 H Hemoglobin A1c Ferritin Lactate Dehydrogenase Total Creatine Kinase C-Reactive Protein Albumin Urine Creatinine Coronavirus (PCR) 06/02/20 06/03/20 06/03/20 23:47 05:18 05:18 WBC 18.4 H RBC RDW 15.3 H Lymph % (Auto) Lymph # [place] # Seg Neutrophils % Seg Neuts % (Manual) 91.0 H Lymphocytes % (Manual) 8.0 L Seg Neutrophils # Seg Neutrophils # Man 16.7 H Lymphocytes # (Manual) Monocytes # (Manual) PT INR D-Dimer Sodium Potassium Chloride Carbon Dioxide 20 L BUN 50 H Creatinine 3.1 H Glucose 248 H POC Glucose 292 H Hemoglobin A1c Ferritin Lactate Dehydrogenase Total Creatine Kinase C-Reactive Protein Albumin 2.8 L Urine Creatinine Coronavirus (PCR) 06/03/20 06/03/20 06/03/20 05:20 11:40 13:06 WBC RBC RDW Lymph % (Auto) Lymph # [place] # Seg Neutrophils % Seg Neuts % (Manual) Lymphocytes % (Manual) Seg Neutrophils # Seg Neutrophils # Man Lymphocytes # (Manual) Monocytes # (Manual) PT INR D-Dimer Sodium Potassium Chloride Carbon Dioxide BUN Creatinine Glucose POC Glucose 208 H 180 H 167 H Hemoglobin A1c Ferritin Lactate Dehydrogenase Total Creatine Kinase C-Reactive Protein Albumin Urine Creatinine Coronavirus (PCR) 06/03/20 06/04/20 06/04/20 16:58 00:07 04:17 WBC 20.8 H RBC 5.20 H RDW 15.7 H Lymph % (Auto) Lymph # [place] # Seg Neutrophils % Seg Neuts % (Manual) 91.0 H Lymphocytes % (Manual) 4.0 L Seg Neutrophils # Seg Neutrophils # Man 18.9 H Lymphocytes # (Manual) 0.8 L Monocytes # (Manual) 1.0 H PT INR D-Dimer Sodium Potassium Chloride Carbon Dioxide BUN Creatinine Glucose POC Glucose 152 H 206 H Hemoglobin A1c Ferritin Lactate Dehydrogenase Total Creatine Kinase C-Reactive Protein Albumin Urine Creatinine Coronavirus (PCR) 06/04/20 06/04/20 06/04/20 04:17 05:35 11:08 WBC RBC RDW Lymph % (Auto) Lymph # [place] # Seg Neutrophils % Seg Neuts % (Manual) Lymphocytes % (Manual) Seg Neutrophils # Seg Neutrophils # Man Lymphocytes # (Manual) Monocytes # (Manual) PT INR D-Dimer Sodium 135 L Potassium 5.1 H Chloride 97.8 L Carbon Dioxide 20 L BUN 56 H Creatinine 3.1 H Glucose 178 H POC Glucose 166 H 159 H Hemoglobin A1c Ferritin Lactate Dehydrogenase Total Creatine Kinase C-Reactive Protein Albumin 3.0 L Urine Creatinine Coronavirus (PCR) 06/04/20 06/05/20 06/05/20 18:06 00:22 04:56 WBC 20.2 H RBC RDW 15.6 H Lymph % (Auto) 4.7 L Lymph # 0.9 L [place] # 1.0 H Seg Neutrophils % Seg Neuts % (Manual) Lymphocytes % (Manual) Seg Neutrophils # 18.2 H Seg Neutrophils # Man Lymphocytes # (Manual) Monocytes # (Manual) PT INR D-Dimer Sodium Potassium Chloride Carbon Dioxide BUN Creatinine Glucose POC Glucose 190 H 234 H Hemoglobin A1c Ferritin Lactate Dehydrogenase Total Creatine Kinase C-Reactive Protein Albumin Urine Creatinine Coronavirus (PCR) 06/05/20 06/05/20 04:56 05:43 WBC RBC RDW Lymph % (Auto) Lymph # [place] # Seg Neutrophils % Seg Neuts % (Manual) Lymphocytes % (Manual) Seg Neutrophils # Seg Neutrophils # Man Lymphocytes # (Manual) Monocytes # (Manual) PT INR D-Dimer Sodium Potassium Chloride Carbon Dioxide 21 L BUN 63 H Creatinine 3.0 H Glucose 170 H POC Glucose 156 H Hemoglobin A1c Ferritin Lactate Dehydrogenase Total Creatine Kinase C-Reactive Protein Albumin 3.0 L Urine Creatinine Coronavirus (PCR)
--- NOTE | 2020-06-05 09:20 | Progress Note ---
Assessment and Plan 1. Acute kidney injury: KEITH superimposed on CKD satge 3 in the setting of severe COVID infection. Renal US pending. UA results noted. Monitor renal function. Creatinine leveled off. Avoid nephrotoxic agents. Meds dosage based on GFR. Monitor for [employer] needs. No acute indication for [employer] today. 2. FEN: Hyperkalemia, improved, monitor. Metabolic acidosis, monitor. Monitor lytes and volume status. 3. Acute hypoxic respiratory failure: 2/2 COVID-19 PNA. On Decadron. Currently on HFNC o2. Followed by Pulmonary. 4. Bilateral COVID-19 PNA: Followed by ID. 5. DM with hyperglycemia: Accu-Check, sliding scale coverage, ADA diet. 6. Hypertension: Monitor BP. - Subjective: Patient was seen and examined at the bedside. In IMCU. - General Appearance General appearance: well-developed, well-nourished, appears stated age, no distress, on HFNC O2 HEENT: ATNC, SVETLANA Neck: Trachea midline Respiratory: coarse breath sounds Heart: regular, S1S2, no murmurs Gastrointestinal: soft, normoactive bowel sounds, not tender, not distended Integumentary: no rash, warm and dry Neurologic: no focal deficit, no asterixis, alert and oriented x3 Ext: no edema Subjective Date of service: 06/05/20 Principal diagnosis: keith Objective - Vital Signs Vital signs: Vital Signs - 12hr 06/04/20 06/04/20 06/04/20 21:27 21:31 21:38 Temperature Pulse Rate 93 H 93 H Pulse Rate [ From Monitor] Respiratory 28 H 19 Rate Blood Pressure 156/94 156/94 O2 Sat by Pulse 85 87 84 Oximetry 06/04/20 06/04/20 06/04/20 22:00 22:31 23:01 Temperature Pulse Rate 95 H 96 H 93 H Pulse Rate [ From Monitor] Respiratory 22 22 40 H Rate Blood Pressure 161/78 161/78 114/33 O2 Sat by Pulse 81 L 86 77 L Oximetry 06/04/20 06/04/20 06/05/20 23:31 23:50 00:00 Temperature 98.3 F Pulse Rate 93 H 85 89 Pulse Rate [ 87 From Monitor] Respiratory 32 H 30 H 37 H Rate Blood Pressure 114/33 114/33 155/95 O2 Sat by Pulse 82 L 93 92 Oximetry 06/05/20 06/05/20 06/05/20 00:31 01:00 01:31 Temperature Pulse Rate 87 84 83 Pulse Rate [ From Monitor] Respiratory 38 H 35 H 33 H Rate Blood Pressure 155/95 152/87 152/87 O2 Sat by Pulse 93 96 94 Oximetry 06/05/20 06/05/20 06/05/20 02:00 02:31 03:00 Temperature Pulse Rate 84 86 83 Pulse Rate [ From Monitor] Respiratory 26 H 21 35 H Rate Blood Pressure 155/53 155/53 133/90 O2 Sat by Pulse 90 92 88 Oximetry 06/05/20 06/05/20 06/05/20 03:31 04:00 04:01 Temperature 98.8 F Pulse Rate 81 81 77 Pulse Rate [ 91 H From Monitor] Respiratory 22 30 H 29 H Rate Blood Pressure 133/90 142/43 O2 Sat by Pulse 92 91 92 Oximetry 06/05/20 06/05/20 06/05/20 04:31 05:00 05:31 Temperature Pulse Rate 72 84 75 Pulse Rate [ From Monitor] Respiratory 18 34 H 21 Rate Blood Pressure 142/43 136/85 136/85 O2 Sat by Pulse 93 93 94 Oximetry 06/05/20 06/05/20 06:00 09:13 Temperature Pulse Rate 74 Pulse Rate [ From Monitor] Respiratory 20 Rate Blood Pressure 146/98 O2 Sat by Pulse 93 90 Oximetry - Lab 06/05/20 04:56 06/05/20 04:56 Most recent lab results Calcium 8.8 mg/dL (8.4-10.2) 06/05/20 04:56 Magnesium 2.20 mg/dL (1.7-2.3) 05/31/20 15:23 Urine Creatinine 161.6 mg/dL (0.1-20.0) H 06/01/20 Unknown Urine Sodium 47 mmol/L 06/01/20 Unknown Medications & Allergies - Medications Allergies/Adverse Reactions: Allergies lisinopril Allergy (Verified 05/31/20 13:03) Angioedema Penicillins Allergy (Verified 05/31/20 13:03) Hives Home Medications: Home Medications Medication Instructions Recorded Confirmed Last Taken Type Acetaminophen [Acetaminophen TAB] 650 mg PO Q4H PRN #30 tablet 02/15/17 Unknown Rx AtorvaSTATin [Lipitor] 20 mg PO QHS tablet 02/15/17 Unknown Rx Cipro/Dexameth 0.3/0.1% [Ciprodex 4 drops AU BID bottle 02/15/17 Unknown Rx OTIC] Detemir (Nf) [Levemir (Nf)] 100 units SUB-Q QHS units 02/15/17 Unknown Rx Dextrose 50% in Water [D50W (25GM) 50 ml IV PRN PRN #30 syringe 02/15/17 Unknown Rx Syringe] Enoxaparin 40 mg SUB-Q QDAY syringe 02/15/17 Unknown Rx Lipase/Protease/Amylase [Pancreaze 1 each FEEDTUBE PRN PRN #30 capsule 02/15/[address],500 Unit] Metoprolol [Lopressor TAB] 25 mg PO BID tablet 02/15/17 Unknown Rx Metoprolol [Lopressor TAB] 25 mg PO BID #60 tablet 02/15/17 Unknown Rx Ondansetron [Zofran INJ] 4 mg IV Q8H PRN #30 vial 02/15/17 Unknown Rx Prednisone [predniSONE 5 mg (6-Day 5 mg PO .TAPER #1 tab.ds.pk 02/15/17 Unknown Rx Pack, 21 Tabs)] Simple Syrup 15 ml FEEDTUBE PRN PRN #30 02/15/17 Unknown Rx oral.liqd Simple Syrup 30 ml FEEDTUBE PRN PRN #30 02/15/17 Unknown Rx oral.liqd Sodium Bicarbonate 325 mg FEEDTUBE PRN PRN #30 tablet 02/15/17 Unknown Rx amLODIPine 10 mg PO DAILY tablet 02/15/17 Unknown Rx amLODIPine [Norvasc] 10 mg PO DAILY #30 tab 02/15/17 Unknown Rx bisacodyL [Dulcolax suppos] 10 mg [place] QDAY PRN #30 supp.rect 02/15/17 Unknown Rx chlorproMAZINE [Thorazine] 10 mg PO Q6H PRN #30 tablet 02/15/17 Unknown Rx dexAMETHasone [Decadron] 6 mg IV Q6HR vial 02/15/17 Unknown Rx hydrALAZINE [Apresoline INJ] 10 mg IV Q6HR PRN #30 vial 02/15/17 Unknown Rx oxyCODONE /ACETAMINOPHEN [Percocet 1 tab PO Q4H PRN #30 tablet 02/15/17 Unknown Rx 5/325 mg] oxyCODONE /ACETAMINOPHEN [Percocet 1 tab PO Q4HR #30 tab 02/15/17 Unknown Rx 5/325] tiZANidine [Zanaflex 4mg TAB] 4 mg PO Q8H PRN #30 tablet 02/15/17 Unknown Rx Permethrin 5% [Acticin 5% CREAM] 1 applicatio TP ONCE #1 tube 06/11/17 Unknown Rx Azithromycin [Zithromax Z-BENJIE] 250 mg PO DAILY 1 Days tab 11/23/18 Unknown Rx Ondansetron [Zofran Odt] 4 mg PO Q8HR PRN #14 tab.rapdis 11/23/18 Unknown Rx traMADoL [Ultram 50 MG tab] 50 mg PO Q4HR PRN #14 tablet 11/23/18 Unknown Rx Active Medications: Generic Name Dose Route Start Last Admin Trade Name Freq PRN Reason Stop Dose Admin Acetaminophen 650 mg 05/31/20 15:49 Tylenol PO Q6H PRN Pain MILD(1-3)/Fever >100.5/LEBRON Albuterol 2.5 mg 05/31/20 15:49 Proventil IH Q3HRT PRN Shortness Of Breath Amlodipine Besylate 10 mg 06/01/20 10:00 06/04/20 09:35 Amlodipine PO 10 mg DAILY CHERI Administration Atorvastatin Calcium 20 mg 05/31/20 22:00 06/04/20 21:56 Lipitor PO 20 mg QHS CHERI Administration Bisacodyl 10 mg 05/31/20 15:57 Dulcolax [place] QDAY PRN Constipation unrelieved by MOM Chlorpromazine HCl 10 mg 05/31/20 15:57 Thorazine PO Q6H PRN Hiccups Dexamethasone 6 mg 06/01/20 10:00 06/04/20 09:33 Decadron PO 06/11/20 09:59 6 mg DAILY CHERI Administration Dextrose 50 ml 05/31/20 15:59 D50w (25gm) Syringe IV Q30MIN PRN Hypoglycemia Protocol Enoxaparin Sodium 30 mg 06/01/20 10:00 06/04/20 09:33 Enoxaparin SUB-Q 30 mg QDAY CHERI Administration Insulin Glargine 100 units 05/31/20 22:00 06/04/20 21:56 Lantus SUB-Q 100 units QHS CHERI Administration Insulin Human Lispro 0 unit 08/28/20 16:00 06/05/20 05:47 Humalog SUB-Q 3 unit Q6H CHERI Administration Protocol Naloxone HCl 0.1 mg 05/31/20 15:49 Naloxone IV Q2MIN PRN Res Rate </= 8 or 02 SAT < 92% Ondansetron HCl 4 mg 05/31/20 15:57 Zofran IV Q8H PRN N/V unrelieved by Anna Oxycodone/Acetaminophen 1 tab 05/31/20 15:49 06/03/20 00:57 Percocet 5/325 PO 1 tab Q6H PRN Administration Pain, Moderate (4-6) Sodium Chloride 10 ml 05/31/20 22:00 06/04/20 21:56 Sodium Chloride Flush Syringe 10 Ml IV 10 ml BID CHERI Administration Sodium Chloride 10 ml 05/31/20 15:49 Sodium Chloride Flush Syringe 10 Ml IV PRN PRN LINE FLUSH Tizanidine HCl 4 mg 05/31/20 15:57 Zanaflex PO Q8H PRN Muscle Spasm
[2020-06-05] MEDS: amLODIPine 10 MG TAB PO SCH (10:11)
[2020-06-05] MEDS: DEXAMETHASONE 4 MG TAB PO SCH (10:11)
[2020-06-05] MEDS: ENOXAPARIN 30 MG/0.3 ML INJ SUB-Q SCH (10:12)
--- NOTE | 2020-06-05 15:54 | Progress Note ---
Assessment and Plan Cultures: Coronavirus PCR:positive Blood culture: no growth A/P: 54-year-old male with diabetes, CKD, prior CVA, obesity was admitted to the hospital with complaints of cough, shortness of breath along with fatigue and malaise: #Severe COVID pneumonia: CRP 14.0, LDH 409, ferritin 599, Ddimer 738. #Acute hypoxic respiratory failure: on high flow. #KEITH on CKD Recs: Continue IV/PO Dexamethasone 6 mg daily x 10 days Not a candidate for Remdesivir due to renal failure trend ferritin, LDH, d-dimer, CRP every 2-3 days for risk stratification and to assess disease progression prophylactic anticoagulation based on d-dimer Ordered repeat procalcitonin due to elevated white count, however that may just be due to steroids. Darby Redding MD [facility] M: [phone] O: [phone] F: [phone] Subjective Date of service: 06/05/20 Principal diagnosis: keith Interval history: Afebrile, white count elevated at 20.2, which is stable from yesterday. Objective - Exam Narrative Exam: Physical exam deferred due to PPE conservation strategy. [facility] - Constitutional Vitals: Vital Signs Temp Pulse Resp BP Pulse Ox 98.8 F 87 37 H 155/97 91 06/05/20 11:52 06/05/20 12:31 06/05/20 12:31 06/05/20 12:31 06/05/20 12:31 Temperature -Last 24 Hours Temperature 98.8 F Temperature 98.2 F Temperature 98.8 F Temperature 98.3 F Temperature 98.1 F - Labs CBC & Chem 7: 06/05/20 04:56 06/05/20 04:56 Labs: Abnormal lab results 06/04/20 06/05/20 06/05/20 Range/Units 18:06 00:22 04:56 WBC 20.2 H (4.5-11.0) K/mm3 RDW 15.6 H (13.2-15.2) % Lymph % (Auto) 4.7 L (13.4-35.0) % Lymph # 0.9 L (1.2-5.4) K/mm3 [place] # 1.0 H (0.0-0.8) K/mm3 Seg Neutrophils # 18.2 H (1.8-7.7) K/mm3 Carbon Dioxide (22-30) mmol/L BUN (9-20) mg/dL Creatinine (0.8-1.3) mg/dL Glucose (75-100) mg/dL POC Glucose 190 H 234 H (70-105) Albumin (3.9-5) g/dL 06/05/20 06/05/20 06/05/20 Range/Units 04:56 05:43 09:27 WBC (4.5-11.0) K/mm3 RDW (13.2-15.2) % Lymph % (Auto) (13.4-35.0) % Lymph # (1.2-5.4) K/mm3 [place] # (0.0-0.8) K/mm3 Seg Neutrophils # (1.8-7.7) K/mm3 Carbon Dioxide 21 L (22-30) mmol/L BUN 63 H (9-20) mg/dL Creatinine 3.0 H (0.8-1.3) mg/dL Glucose 170 H (75-100) mg/dL POC Glucose 156 H 106 H (70-105) Albumin 3.0 L (3.9-5) g/dL 06/05/20 Range/Units 15:50 WBC (4.5-11.0) K/mm3 RDW (13.2-15.2) % Lymph % (Auto) (13.4-35.0) % Lymph # (1.2-5.4) K/mm3 [place] # (0.0-0.8) K/mm3 Seg Neutrophils # (1.8-7.7) K/mm3 Carbon Dioxide (22-30) mmol/L BUN (9-20) mg/dL Creatinine (0.8-1.3) mg/dL Glucose (75-100) mg/dL POC Glucose 197 H (70-105) Albumin (3.9-5) g/dL
--- NOTE | 2020-06-05 19:13 | Progress Note ---
Assessment and Plan Assessment and plan: 54 year old male presenting with shortness of breath, with hypoxia on admission, saturation in the low 80s. PMHx of HTN PCP- Calin alicia Home med: ANTONIO, METOPROLOL, LORSTAN, HYDRALAZIN AND AMYLODPIN CXR: Bilateral lobar inflitrates- My own read 06/02: Continue current management. Patient on high flow. If can tolerate prone recommend prone position during hours of sleep. 06/03: Continue supportive care. Overall prognosis is guarded. Will discuss proceed with obtaining consent for convalescent plasma. Poor prognosis considering COVID-19 and complicated by renal failure. 06/04: Continue current therapy consent obtained for convalescent plasma. Will discuss with laboratory to obtain the plasma. 06/05: Continue supportive care. Poor prognosis. Patient will like to think about plasma therapy and not ready to sign the consent now. Acute Hypoxic Respiratory failure 2019 novel sampson virus Pneumonia Bilateral penumonia KEITH WITH VASOMOTOR NEPHROPATHY ON CKD Stage 3 HTN DM with hyperglycemia Plan Continue support care Pulmonary and ID consult in put noted Started on steroids Remdesivir precluded due to renal function Start on Abx Labs pending Blood cultures Aspiration precautions DVT/GI prophy Plan discussed with the patient The high probability of a clinically significant, sudden or life threatening deterioration of the [pulmonary] system(s) required my full and direct attention, intervention and personal management. The aggregate critical care time was [35] minutes. This time is in addition to time spent performing reported procedures but includes the following: [x] Data Review and interpretation [x] Patient assessment and monitoring of vital signs [x] Documentation [x] Medication orders and management History Interval history: Patient seen and examined still on high flow due to persist hypoxia but no other complaints Hospitalist Physical - Physical exam Narrative exam: VITAL SIGNS: Reviewed. GENERAL: The patient appears normally developed, obese vital signs as documented. HEAD: No signs of head trauma. EYES: Pupils are equal. Extraocular motions intact. EARS: Hearing grossly intact. MOUTH: Oropharynx is normal. NECK: No adenopathy, no JVD. CHEST: Rapid respiratory rate chest with diminished breath sounds bilaterally. No wheezes, rales, or rhonchi. CARDIAC: Regular rate and rhythm. S1 and S2, without murmurs, gallops, or rubs. VASCULAR: No Edema. Peripheral pulses normal and equal in all extremities. ABDOMEN: Soft, non tender and non distended. No rebound or guarding, and no masses palpated. Bowel Sounds normal. MUSCULOSKELETAL: Good range of motion of all major joints. Extremities without clubbing, cyanosis or edema. NEUROLOGIC EXAM: Awake but lethargic and oriented x 3 No focal sensory or strength deficits. Speech normal. Follows commands. PSYCHIATRIC: Mood normal. SKIN: detail exam as documented in skin assessment - Constitutional Vitals: Temp Pulse Resp BP Pulse Ox 98.8 F 86 20 148/91 77 L 06/05/20 11:52 06/05/20 18:01 06/05/20 18:01 06/05/20 18:01 06/05/20 18:01 HEART Score - HEART Score Troponin: Troponin T 0.021 ng/mL (0.00-0.029) 05/31/20 15:23 Results - Labs CBC & Chem 7: 06/05/20 04:56 06/05/20 04:56 Labs: Laboratory Last Values WBC 20.2 K/mm3 (4.5-11.0) H 06/05/20 04:56 RBC 4.89 M/mm3 (3.65-5.03) 06/05/20 04:56 Hgb 14.5 gm/dl (11.8-15.2) 06/05/20 04:56 Hct 42.6 % (35.5-45.6) 06/05/20 04:56 MCV 87 fl (84-94) 06/05/20 04:56 MCH 30 pg (28-32) 06/05/20 04:56 MCHC 34 % (32-34) 06/05/20 04:56 RDW 15.6 % (13.2-15.2) H 06/05/20 04:56 Plt Count 328 K/mm3 (140-440) 06/05/20 04:56 Lymph % (Auto) 4.7 % (13.4-35.0) L 06/05/20 04:56 [place] % (Auto) 4.8 % (0.0-7.3) 06/05/20 04:56 Eos % (Auto) 0.0 % (0.0-4.3) 06/05/20 04:56 Baso % (Auto) 0.2 % (0.0-1.8) 06/05/20 04:56 Lymph # 0.9 K/mm3 (1.2-5.4) L 06/05/20 04:56 [place] # 1.0 K/mm3 (0.0-0.8) H 06/05/20 04:56 Eos # 0.0 K/mm3 (0.0-0.4) 06/05/20 04:56 Baso # 0.0 K/mm3 (0.0-0.1) 06/05/20 04:56 Add Manual Diff Complete 06/04/20 04:17 Total Counted 100 06/04/20 04:17 Seg Neutrophils % Pipelines Superintendent 06/05/20 04:56 Seg Neuts % (Manual) 91.0 % (40.0-70.0) H 06/04/20 04:17 Band Neutrophils % 0 % 06/04/20 04:17 Lymphocytes % (Manual) 4.0 % (13.4-35.0) L 06/04/20 04:17 Reactive Lymphs % (Man) 0 % 06/04/20 04:17 Monocytes % (Manual) 5.0 % (0.0-7.3) 06/04/20 04:17 Eosinophils % (Manual) 0 % (0.0-4.3) 06/04/20 04:17 Basophils % (Manual) 0 % (0.0-1.8) 06/04/20 04:17 Metamyelocytes % 0 % 06/04/20 04:17 Myelocytes % 0 % 06/04/20 04:17 Promyelocytes % 0 % 06/04/20 04:17 Blast Cells % 0 % 06/04/20 04:17 Nucleated RBC % Not Reportable 06/04/20 04:17 Seg Neutrophils # 18.2 K/mm3 (1.8-7.7) H 06/05/20 04:56 Seg Neutrophils # Man 18.9 K/mm3 (1.8-7.7) H 06/04/20 04:17 Band Neutrophils # 0.0 K/mm3 06/04/20 04:17 Lymphocytes # (Manual) 0.8 K/mm3 (1.2-5.4) L 06/04/20 04:17 Abs React Lymphs (Man) 0.0 K/mm3 06/04/20 04:17 Monocytes # (Manual) 1.0 K/mm3 (0.0-0.8) H 06/04/20 04:17 Eosinophils # (Manual) 0.0 K/mm3 (0.0-0.4) 06/04/20 04:17 Basophils # (Manual) 0.0 K/mm3 (0.0-0.1) 06/04/20 04:17 Metamyelocytes # 0.0 K/mm3 06/04/20 04:17 Myelocytes # 0.0 K/mm3 06/04/20 04:17 Promyelocytes # 0.0 K/mm3 06/04/20 04:17 Blast Cells # 0.0 K/mm3 06/04/20 04:17 WBC Morphology Not Reportable 06/04/20 04:17 Hypersegmented Neuts Not Reportable 06/04/20 04:17 Hyposegmented Neuts Not Reportable 06/04/20 04:17 Hypogranular Neuts Not Reportable 06/04/20 04:17 Smudge Cells Not Reportable 06/04/20 04:17 Toxic Granulation Not Reportable 06/04/20 04:17 Toxic Vacuolation Not Reportable 06/04/20 04:17 Dohle Bodies Not Reportable 06/04/20 04:17 Pelger-Huet Anomaly Not Reportable 06/04/20 04:17 Edwige Rods Not Reportable 06/04/20 04:17 Platelet Estimate Consistent w auto 06/04/20 04:17 Clumped Platelets Not Reportable 06/04/20 04:17 Plt Clumps, EDTA Not Reportable 06/04/20 04:17 Large Platelets Not Reportable 06/04/20 04:17 Giant Platelets Not Reportable 06/04/20 04:17 Platelet Satelliting Not Reportable 06/04/20 04:17 Plt Morphology Comment Not Reportable 06/04/20 04:17 RBC Morphology Not Reportable 06/04/20 04:17 Dimorphic RBCs Not Reportable 06/04/20 04:17 Polychromasia Not Reportable 06/04/20 04:17 Hypochromasia Not Reportable 06/04/20 04:17 Poikilocytosis Not Reportable 06/04/20 04:17 Anisocytosis Not Reportable 06/04/20 04:17 Microcytosis Not Reportable 06/04/20 04:17 Macrocytosis Not Reportable 06/04/20 04:17 Spherocytes Not Reportable 06/04/20 04:17 Pappenheimer Bodies Not Reportable 06/04/20 04:17 Sickle Cells Not Reportable 06/04/20 04:17 Target Cells Few 06/04/20 04:17 Tear Drop Cells Not Reportable 06/04/20 04:17 Ovalocytes Not Reportable 06/04/20 04:17 Helmet Cells Not Reportable 06/04/20 04:17 Sanchez-[place] Bodies Not Reportable 06/04/20 04:17 Clyde Rings Not Reportable 06/04/20 04:17 Conrath Cells Not Reportable 06/04/20 04:17 Bite Cells Not Reportable 06/04/20 04:17 Crenated Cell Not Reportable 06/04/20 04:17 Elliptocytes Not Reportable 06/04/20 04:17 Acanthocytes (Spur) Not Reportable 06/04/20 04:17 Rouleaux Not Reportable 06/04/20 04:17 Hemoglobin C Crystals Not Reportable 06/04/20 04:17 Schistocytes Not Reportable 06/04/20 04:17 Malaria parasites Not Reportable 06/04/20 04:17 Edinson Bodies Not Reportable 06/04/20 04:17 Hem Pathologist Commnt No 06/04/20 04:17 PT 11.5 Sec. (12.2-14.9) L 05/31/20 15:23 INR 0.83 (0.87-1.13) L 05/31/20 15:23 D-Dimer 738.85 ng/mlDDU (0-234) H 05/31/20 16:49 Sodium 141 mmol/L (137-145) 06/05/20 04:56 Potassium 4.5 mmol/L (3.6-5.0) 06/05/20 04:56 Chloride 100.8 mmol/L (98-107) 06/05/20 04:56 Carbon Dioxide 21 mmol/L (22-30) L 06/05/20 04:56 Anion Gap 24 mmol/L 06/05/20 04:56 BUN 63 mg/dL (9-20) H 06/05/20 04:56 Creatinine 3.0 mg/dL (0.8-1.3) H 06/05/20 04:56 Estimated GFR 26 ml/min 06/05/20 04:56 BUN/Creatinine Ratio 21 % 06/05/20 04:56 Glucose 170 mg/dL (75-100) H 06/05/20 04:56 POC Glucose 197 (70-105) H 06/05/20 15:50 Hemoglobin A1c 8.5 % (4-6) H 05/31/20 16:49 Calcium 8.8 mg/dL (8.4-10.2) 06/05/20 04:56 Magnesium 2.20 mg/dL (1.7-2.3) 05/31/20 15:23 Ferritin 599.0 ng/mL (30.0-300.0) H 05/31/20 16:49 Total Bilirubin 0.40 mg/dL (0.1-1.2) 06/05/20 04:56 AST 18 units/L (5-40) 06/05/20 04:56 ALT 23 units/L (7-56) 06/05/20 04:56 Alkaline Phosphatase 93 units/L (35-129) 06/05/20 04:56 Lactate Dehydrogenase 409 units/L (91-180) H 05/31/20 16:49 Total Creatine Kinase 325 units/L (55-170) H 05/31/20 15:23 Troponin T 0.021 ng/mL (0.00-0.029) 05/31/20 15:23 C-Reactive Protein 14.00 mg/dL (0.00-1.30) H 05/31/20 16:49 NT-Pro-B Natriuret Pep 111.3 pg/mL (0-900) 06/01/20 13:41 Total Protein 7.0 g/dL (6.3-8.2) 06/05/20 04:56 Albumin 3.0 g/dL (3.9-5) L 06/05/20 04:56 Albumin/Globulin Ratio 0.8 % 06/05/20 04:56 Procalcitonin 0.33 ng/mL (<0.15) 05/31/20 16:49 Urine Color Yellow (Yellow) 06/01/20 Unknown Urine Turbidity Clear (Clear) 06/01/20 Unknown Urine pH 5.0 (5.0-7.0) 06/01/20 Unknown Ur Specific [place] 1.018 (1.003-1.030) 06/01/20 Unknown Urine Protein >500 mg/dL (Negative) 06/01/20 Unknown Urine Glucose (UA) >=500 mg/dL (Negative) 06/01/20 Unknown Urine Ketones Tr mg/dL (Negative) 06/01/20 Unknown Urine Blood Mod (Negative) 06/01/20 Unknown Urine Nitrite Neg (Negative) 06/01/20 Unknown Urine Bilirubin Neg (Negative) 06/01/20 Unknown Urine Urobilinogen < 2.0 mg/dL (<2.0) 06/01/20 Unknown Ur Leukocyte Esterase Neg (Negative) 06/01/20 Unknown Urine WBC (Auto) 4.0 /HPF (0.0-6.0) 06/01/20 Unknown Urine RBC (Auto) 9.0 /HPF (0.0-6.0) 06/01/20 Unknown U Epithel Cells (Auto) 1.0 /HPF (0-13.0) 06/01/20 Unknown Urine Mucus Few /HPF 06/01/20 Unknown Urine Eosinophils None seen (None Seen) 06/01/20 Unknown Urine Creatinine 161.6 mg/dL (0.1-20.0) H 06/01/20 Unknown Urine Sodium 47 mmol/L 06/01/20 Unknown Coronavirus (PCR) Positive (Negative) A 06/01/20 Unknown Hepatitis A IgM Ab Non-reactive (NonReactive) 06/03/20 10:39 Hep Bs Antigen Non-reactive (Negative) 06/03/20 10:39 Hep B Core IgM Ab Non-reactive (NonReactive) 06/03/20 10:39 Hepatitis C Antibody Non-reactive (NonReactive) 06/03/20 10:39 Microbiology: Microbiology 05/31/20 15:23 Peripheral/Venous Blood Culture - Final NO GROWTH AFTER 5 DAYS 05/31/20 15:26 Peripheral/Venous Blood Culture - Final NO GROWTH AFTER 5 DAYS Hess/IV: Voiding Method Urinal IV Catheter Type [Right INT / Saline Lock Antecubital] Active Medications - Current Medications Current Medications: Generic Name Dose Route Start Last Admin Trade Name Freq PRN Reason Stop Dose Admin Acetaminophen 650 mg 05/31/20 15:49 Tylenol PO Q6H PRN Pain MILD(1-3)/Fever >100.5/LEBRON Albuterol 2.5 mg 05/31/20 15:49 Proventil IH Q3HRT PRN Shortness Of Breath Amlodipine Besylate 10 mg 06/01/20 10:00 06/05/20 10:11 Amlodipine PO 10 mg DAILY CHERI Administration Atorvastatin Calcium 20 mg 05/31/20 22:00 06/04/20 21:56 Lipitor PO 20 mg QHS CHERI Administration Bisacodyl 10 mg 05/31/20 15:57 Dulcolax [place] QDAY PRN Constipation unrelieved by MOM Chlorpromazine HCl 10 mg 05/31/20 15:57 Thorazine PO Q6H PRN Hiccups Dexamethasone 6 mg 06/01/20 10:00 06/05/20 10:11 Decadron PO 06/11/20 09:59 6 mg DAILY CHERI Administration Dextrose 50 ml 05/31/20 15:59 D50w (25gm) Syringe IV Q30MIN PRN Hypoglycemia Protocol Enoxaparin Sodium 30 mg 06/01/20 10:00 06/05/20 10:12 Enoxaparin SUB-Q 30 mg QDAY CHERI Administration Insulin Glargine 100 units 05/31/20 22:00 06/04/20 21:56 Lantus SUB-Q 100 units QHS CHERI Administration Insulin Human Lispro 0 unit 05/31/20 16:00 06/05/20 17:35 Humalog SUB-Q 3 unit Q6H CHERI Administration Protocol Naloxone HCl 0.1 mg 05/31/20 15:49 Naloxone IV Q2MIN PRN Res Rate </= 8 or 02 SAT < 92% Ondansetron HCl 4 mg 05/31/20 15:57 Zofran IV Q8H PRN N/V unrelieved by Reglan Oxycodone/Acetaminophen 1 tab 05/31/20 15:49 06/03/20 00:57 Percocet 5/325 PO 1 tab Q6H PRN Administration Pain, Moderate (4-6) Sodium Chloride 10 ml 05/31/20 22:00 06/05/20 10:14 Sodium Chloride Flush Syringe 10 Ml IV 10 ml BID CHERI Administration Sodium Chloride 10 ml 05/31/20 15:49 Sodium Chloride Flush Syringe 10 Ml IV PRN PRN LINE FLUSH Tizanidine HCl 4 mg 05/31/20 15:57 Zanaflex PO Q8H PRN Muscle Spasm Nutrition/Malnutrition Assess - Dietary Evaluation Nutrition/Malnutrition Findings: Nutrition Notes Start: 06/01/20 10:42 Freq: Status: Active Protocol: Document 06/03/20 12:46 LM (Rec: 06/03/20 12:52 LM [id number]) Nutrition Notes Initial or Follow up Brief Note Current Diagnosis CKD(stage I-IV),Diabetes, Hypertension,Stroke Other Pertinent Diagnosis COVID-19 (+) Current Diet Renal Labs/Tests BUN 50 Cr 3.1 BG 248 Pertinent Medications Humalog Lantus Subjective/Other Information Unable to reach pt by phone. Nutrition Intervention Follow-Up By: 06/06/20 Additional Comments F/U for diet education
[2020-06-05] MEDS: INSULIN GLARGINE 100 UNITS/ML SUB-Q SCH (21:54)
[2020-06-06] MEDS: INSULIN LISPRO 100 UNIT/ML VIAL 3 mL SUB-Q SCH ×5 (00:27→21:26)
[2020-06-06 09:27] LABS: Myeloperoxidase Antibody <1.0 AI (<1.0)
--- NOTE | 2020-06-06 09:46 | Progress Note ---
Assessment and Plan 1. Acute kidney injury: KEITH superimposed on CKD satge 3 in the setting of severe COVID infection. Renal US pending. UA results noted. Monitor renal function. Creatinine level is slightly better today. Avoid nephrotoxic agents. Meds dosage based on GFR. Monitor for FIRE TECHNICIAN needs. No acute indication for FIRE TECHNICIAN today. 2. FEN: Hyperkalemia, improved, monitor. Metabolic acidosis, monitor. Monitor lytes and volume status. 3. Acute hypoxic respiratory failure: 2/2 COVID-19 PNA. On Decadron. On HFNC O2 / BIPAP. Followed by Pulmonary. 4. Bilateral COVID-19 PNA: Followed by ID. 5. DM with hyperglycemia: Accu-Check, sliding scale coverage, ADA diet. 6. Hypertension: Monitor BP. - Subjective: Patient was seen and examined at the bedside. In IMCU. - General Appearance General appearance: well-developed, well-nourished, appears stated age, no distress, on BIPAP HEENT: ATNC, SVETLANA Neck: Trachea midline Respiratory: coarse breath sounds Heart: regular, S1S2, no murmurs Gastrointestinal: soft, normoactive bowel sounds, not tender, not distended Integumentary: no rash, warm and dry Neurologic: able to move extremities Ext: no edema Subjective Date of service: 06/06/20 Principal diagnosis: keith Objective - Vital Signs Vital signs: Vital Signs - 12hr 06/05/20 06/05/20 06/05/20 22:00 22:15 22:31 Temperature Pulse Rate 86 94 H 90 Pulse Rate [ From Monitor] Respiratory 44 H 21 42 H Rate Blood Pressure 132/90 132/90 132/90 O2 Sat by Pulse 89 58 L 93 Oximetry 06/05/20 06/05/20 06/05/20 22:46 23:00 23:31 Temperature Pulse Rate 86 87 80 Pulse Rate [ From Monitor] Respiratory 35 H 29 H 34 H Rate Blood Pressure 132/90 143/102 143/102 O2 Sat by Pulse 97 97 100 Oximetry 06/06/20 06/06/20 06/06/20 00:00 00:01 00:31 Temperature 98.7 F Pulse Rate 80 77 87 Pulse Rate [ 88 From Monitor] Respiratory 35 H 37 H 24 Rate Blood Pressure 162/83 162/83 O2 Sat by Pulse 94 Oximetry 06/06/20 06/06/20 06/06/20 01:00 01:31 02:01 Temperature Pulse Rate 75 73 71 Pulse Rate [ From Monitor] Respiratory 25 H 35 H 37 H Rate Blood Pressure 143/95 143/95 141/91 O2 Sat by Pulse Oximetry 06/06/20 06/06/20 06/06/20 02:31 02:43 03:00 Temperature Pulse Rate 69 70 73 Pulse Rate [ From Monitor] Respiratory 25 H 40 H 32 H Rate Blood Pressure 141/91 141/91 151/97 O2 Sat by Pulse 97 90 Oximetry 06/06/20 06/06/20 06/06/20 03:31 04:00 04:01 Temperature 98.8 F Pulse Rate 70 69 68 Pulse Rate [ 88 From Monitor] Respiratory 20 35 H 14 Rate Blood Pressure 151/97 132/68 O2 Sat by Pulse 94 98 Oximetry 06/06/20 06/06/20 06/06/20 04:31 05:00 05:31 Temperature Pulse Rate 67 67 64 Pulse Rate [ From Monitor] Respiratory 21 24 14 Rate Blood Pressure 132/68 146/51 146/51 O2 Sat by Pulse 94 92 94 Oximetry 06/06/20 06/06/20 06/06/20 06:01 06:31 07:00 Temperature Pulse Rate 68 69 68 Pulse Rate [ From Monitor] Respiratory 17 17 11 L Rate Blood Pressure 152/88 152/88 152/72 O2 Sat by Pulse 93 95 96 Oximetry 06/06/20 06/06/20 06/06/20 07:31 07:44 08:00 Temperature Pulse Rate 71 73 Pulse Rate [ From Monitor] Respiratory 20 19 Rate Blood Pressure 152/72 172/72 O2 Sat by Pulse 96 89 81 L Oximetry 06/06/20 06/06/20 08:31 09:00 Temperature Pulse Rate 77 84 Pulse Rate [ From Monitor] Respiratory 29 H 18 Rate Blood Pressure 172/72 169/71 O2 Sat by Pulse 84 80 L Oximetry - Lab 06/06/20 10:31 06/06/20 10:31 Most recent lab results Calcium 8.8 mg/dL (8.4-10.2) 06/05/20 04:56 Magnesium 2.20 mg/dL (1.7-2.3) 05/31/20 15:23 Urine Creatinine 161.6 mg/dL (0.1-20.0) H 06/01/20 Unknown Urine Sodium 47 mmol/L 06/01/20 Unknown Medications & Allergies - Medications Allergies/Adverse Reactions: Allergies lisinopril Allergy (Verified 05/31/20 13:03) Angioedema Penicillins Allergy (Verified 05/31/20 13:03) Hives Home Medications: Home Medications Medication Instructions Recorded Confirmed Last Taken Type Acetaminophen [Acetaminophen TAB] 650 mg PO Q4H PRN #30 tablet 02/15/17 Unknown Rx AtorvaSTATin [Lipitor] 20 mg PO QHS tablet 02/15/17 Unknown Rx Cipro/Dexameth 0.3/0.1% [Ciprodex 4 drops AU BID bottle 02/15/17 Unknown Rx OTIC] Detemir (Nf) [Levemir (Nf)] 100 units SUB-Q QHS units 02/15/17 Unknown Rx Dextrose 50% in Water [D50W (25GM) 50 ml IV PRN PRN #30 syringe 02/15/17 Unknown Rx Syringe] Enoxaparin 40 mg SUB-Q QDAY syringe 02/15/17 Unknown Rx Lipase/Protease/Amylase [Pancreaze 1 each FEEDTUBE PRN PRN #30 capsule 02/15/[address] 10,500 Unit] Metoprolol [Lopressor TAB] 25 mg PO BID tablet 02/15/17 Unknown Rx Metoprolol [Lopressor TAB] 25 mg PO BID #60 tablet 02/15/17 Unknown Rx Ondansetron [Zofran INJ] 4 mg IV Q8H PRN #30 vial 02/15/17 Unknown Rx Prednisone [predniSONE 5 mg (6-Day 5 mg PO .TAPER #1 tab.ds.pk 02/15/17 Unknown Rx Pack, 21 Tabs)] Simple Syrup 15 ml FEEDTUBE PRN PRN #30 02/15/17 Unknown Rx oral.liqd Simple Syrup 30 ml FEEDTUBE PRN PRN #30 02/15/17 Unknown Rx oral.liqd Sodium Bicarbonate 325 mg FEEDTUBE PRN PRN #30 tablet 02/15/17 Unknown Rx amLODIPine 10 mg PO DAILY tablet 02/15/17 Unknown Rx amLODIPine [Norvasc] 10 mg PO DAILY #30 tab 02/15/17 Unknown Rx bisacodyL [Dulcolax suppos] 10 mg [place] QDAY PRN #30 supp.rect 02/15/17 Unknown Rx chlorproMAZINE [Thorazine] 10 mg PO Q6H PRN #30 tablet 02/15/17 Unknown Rx dexAMETHasone [Decadron] 6 mg IV Q6HR vial 02/15/17 Unknown Rx hydrALAZINE [Apresoline INJ] 10 mg IV Q6HR PRN #30 vial 02/15/17 Unknown Rx oxyCODONE /ACETAMINOPHEN [Percocet 1 tab PO Q4H PRN #30 tablet 02/15/17 Unknown Rx 5/325 mg] oxyCODONE /ACETAMINOPHEN [Percocet 1 tab PO Q4HR #30 tab 02/15/17 Unknown Rx 5/325] tiZANidine [Zanaflex 4mg TAB] 4 mg PO Q8H PRN #30 tablet 02/15/17 Unknown Rx Permethrin 5% [Acticin 5% CREAM] 1 applicatio TP ONCE #1 tube 06/11/17 Unknown Rx Azithromycin [Zithromax Z-BENJIE] 250 mg PO DAILY 1 Days tab 11/23/18 Unknown Rx Ondansetron [Zofran Odt] 4 mg PO Q8HR PRN #14 tab.rapdis 11/23/18 Unknown Rx traMADoL [Ultram 50 MG tab] 50 mg PO Q4HR PRN #14 tablet 11/23/18 Unknown Rx Active Medications: Generic Name Dose Route Start Last Admin Trade Name Freq PRN Reason Stop Dose Admin Acetaminophen 650 mg 05/31/20 15:49 Tylenol PO Q6H PRN Pain MILD(1-3)/Fever >100.5/LEBRON Albuterol 2.5 mg 05/31/20 15:49 Proventil IH Q3HRT PRN Shortness Of Breath Amlodipine Besylate 10 mg 06/01/20 10:00 06/05/20 10:11 Amlodipine PO 10 mg DAILY CHERI Administration Atorvastatin Calcium 20 mg 05/31/20 22:00 06/05/20 21:55 Lipitor PO 20 mg QHS CHERI Administration Bisacodyl 10 mg 05/31/20 15:57 Dulcolax [place] QDAY PRN Constipation unrelieved by MOM Chlorpromazine HCl 10 mg 05/31/20 15:57 Thorazine PO Q6H PRN Hiccups Dexamethasone 6 mg 06/01/20 10:00 06/05/20 10:11 Decadron PO 06/11/20 09:59 6 mg DAILY CHERI Administration Dextrose 50 ml 05/31/20 15:59 D50w (25gm) Syringe IV Q30MIN PRN Hypoglycemia Protocol Enoxaparin Sodium 30 mg 06/01/20 10:00 06/05/20 10:12 Enoxaparin SUB-Q 30 mg QDAY CHERI Administration Insulin Glargine 100 units 05/31/20 22:00 06/05/20 21:54 Lantus SUB-Q 100 units QHS CHERI Administration Insulin Human Lispro 0 unit 05/31/20 16:00 06/06/20 07:01 Humalog SUB-Q Not Given Q6H [facility] Protocol Naloxone HCl 0.1 mg 05/31/20 15:49 Naloxone IV Q2MIN PRN Res Rate </= 8 or 02 SAT < 92% Ondansetron HCl 4 mg 05/31/20 15:57 Zofran IV Q8H PRN N/V unrelieved by Reglan Oxycodone/Acetaminophen 1 tab 05/31/20 15:49 06/03/20 00:57 Percocet 5/325 PO 1 tab Q6H PRN Administration Pain, Moderate (4-6) Sodium Chloride 10 ml 05/31/20 22:00 06/05/20 21:55 Sodium Chloride Flush Syringe 10 Ml IV 10 ml BID CHERI Administration Sodium Chloride 10 ml 05/31/20 15:49 Sodium Chloride Flush Syringe 10 Ml IV PRN PRN LINE FLUSH Tizanidine HCl 4 mg 05/31/20 15:57 Zanaflex PO Q8H PRN Muscle Spasm
[2020-06-06] MEDS: DEXAMETHASONE 4 MG TAB PO SCH (10:40)
[2020-06-06] MEDS: amLODIPine 10 MG TAB PO SCH (10:41)
[2020-06-06] MEDS: ENOXAPARIN 30 MG/0.3 ML INJ SUB-Q SCH (10:42)
--- NOTE | 2020-06-06 11:01 | Progress Note ---
Assessment and Plan 54 y/o male with acute respiratory failure, secondary to COVID 19 pneumonia and possibly acute renal failure 1. Wean FiO2 for sats >88% 2. Agree with steroids as ordered by ID, unfortunately not a candidate for remdesivir given renal function 3. Await patient decision on plasma 4. Prone as much as tolerated during the day and sleep prone at night 5. Follow up renal recs, NO HD per them 6. overall prognosis is guarded Subjective Date of service: 06/06/20 Principal diagnosis: talia Interval history: No acute events. Spoke with IMS on yesterday and patient is still "considering" convalescent plasma. Objective Vital Signs - 12hr 06/05/20 06/06/20 06/06/20 23:31 00:00 00:01 Temperature 98.7 F Pulse Rate 80 80 77 Pulse Rate [ 88 From Monitor] Respiratory 34 H 35 H 37 H Rate Blood Pressure 143/102 162/83 O2 Sat by Pulse 100 94 Oximetry 06/06/20 06/06/20 06/06/20 00:31 01:00 01:31 Temperature Pulse Rate 87 75 73 Pulse Rate [ From Monitor] Respiratory 24 25 H 35 H Rate Blood Pressure 162/83 143/95 143/95 O2 Sat by Pulse Oximetry 06/06/20 06/06/20 06/06/20 02:01 02:31 02:43 Temperature Pulse Rate 71 69 70 Pulse Rate [ From Monitor] Respiratory 37 H 25 H 40 H Rate Blood Pressure 141/91 141/91 141/91 O2 Sat by Pulse 97 Oximetry 06/06/20 06/06/20 06/06/20 03:00 03:31 04:00 Temperature 98.8 F Pulse Rate 73 70 69 Pulse Rate [ 88 From Monitor] Respiratory 32 H 20 35 H Rate Blood Pressure 151/97 151/97 O2 Sat by Pulse 90 94 Oximetry 06/06/20 06/06/20 06/06/20 04:01 04:31 05:00 Temperature Pulse Rate 68 67 67 Pulse Rate [ From Monitor] Respiratory 14 21 24 Rate Blood Pressure 132/68 132/68 146/51 O2 Sat by Pulse 98 94 92 Oximetry 06/06/20 06/06/20 06/06/20 05:31 06:01 06:31 Temperature Pulse Rate 64 68 69 Pulse Rate [ From Monitor] Respiratory 14 17 17 Rate Blood Pressure 146/51 152/88 152/88 O2 Sat by Pulse 94 93 95 Oximetry 06/06/20 06/06/20 06/06/20 07:00 07:31 07:44 Temperature Pulse Rate 68 71 Pulse Rate [ From Monitor] Respiratory 11 L 20 Rate Blood Pressure 152/72 152/72 O2 Sat by Pulse 96 96 89 Oximetry 06/06/20 06/06/20 06/06/20 08:00 08:31 09:00 Temperature Pulse Rate 73 77 84 Pulse Rate [ From Monitor] Respiratory 19 29 H 18 Rate Blood Pressure 172/72 172/72 169/71 O2 Sat by Pulse 81 L 84 80 L Oximetry 06/06/20 10:41 Temperature Pulse Rate 79 Pulse Rate [ From Monitor] Respiratory Rate Blood Pressure 150/60 O2 Sat by Pulse Oximetry CBC and BMP: 06/06/20 10:31 06/06/20 10:31 ABG, PT/INR, D-dimer: PT/INR, D-dimer PT 11.5 Sec. (12.2-14.9) L 05/31/20 15:23 INR 0.83 (0.87-1.13) L 05/31/20 15:23 D-Dimer 738.85 ng/mlDDU (0-234) H 05/31/20 16:49 Abnormal lab findings: Abnormal Labs 05/31/20 05/31/20 05/31/20 15:23 15:23 15:23 WBC RBC RDW Lymph % (Auto) Lymph # Mcpherson # Seg Neutrophils % Seg Neuts % (Manual) Lymphocytes % (Manual) Seg Neutrophils # Seg Neutrophils # Man Lymphocytes # (Manual) Monocytes # (Manual) PT INR D-Dimer Sodium Potassium Chloride Carbon Dioxide BUN Creatinine Glucose 280 H POC Glucose Hemoglobin A1c Ferritin 583.4 H Lactate Dehydrogenase 392 H Total Creatine Kinase 325 H C-Reactive Protein 14.30 H Albumin Urine Creatinine Coronavirus (PCR) 05/31/20 05/31/20 05/31/20 15:23 15:23 15:23 WBC RBC RDW 15.7 H Lymph % (Auto) 12.9 L Lymph # 1.0 L Mcpherson # Seg Neutrophils % 81.7 H Seg Neuts % (Manual) Lymphocytes % (Manual) Seg Neutrophils # Seg Neutrophils # Man Lymphocytes # (Manual) Monocytes # (Manual) PT 11.5 L INR 0.83 L D-Dimer Sodium 134 L Potassium Chloride 97.2 L Carbon Dioxide BUN 28 H Creatinine 3.0 H Glucose 279 H POC Glucose Hemoglobin A1c Ferritin Lactate Dehydrogenase Total Creatine Kinase C-Reactive Protein Albumin 3.3 L Urine Creatinine Coronavirus (PCR) 05/31/20 05/31/20 05/31/20 16:47 16:49 16:49 WBC RBC RDW Lymph % (Auto) Lymph # Mcpherson # Seg Neutrophils % Seg Neuts % (Manual) Lymphocytes % (Manual) Seg Neutrophils # Seg Neutrophils # Man Lymphocytes # (Manual) Monocytes # (Manual) PT INR D-Dimer 738.85 H Sodium Potassium Chloride Carbon Dioxide BUN Creatinine Glucose 258 H POC Glucose 239 H Hemoglobin A1c Ferritin Lactate Dehydrogenase 409 H Total Creatine Kinase C-Reactive Protein 14.00 H Albumin Urine Creatinine Coronavirus (PCR) 05/31/20 05/31/20 06/01/20 16:49 16:49 10:15 WBC RBC RDW Lymph % (Auto) Lymph # Mcpherson # Seg Neutrophils % Seg Neuts % (Manual) Lymphocytes % (Manual) Seg Neutrophils # Seg Neutrophils # Man Lymphocytes # (Manual) Monocytes # (Manual) PT INR D-Dimer Sodium Potassium Chloride Carbon Dioxide BUN Creatinine Glucose POC Glucose 277 H Hemoglobin A1c 8.5 H Ferritin 599.0 H Lactate Dehydrogenase Total Creatine Kinase C-Reactive Protein Albumin Urine Creatinine Coronavirus (PCR) 06/01/20 06/01/20 06/01/20 13:41 13:41 16:10 WBC RBC RDW 15.3 H Lymph % (Auto) 8.4 L Lymph # 0.9 L Mcpherson # Seg Neutrophils % 86.9 H Seg Neuts % (Manual) Lymphocytes % (Manual) Seg Neutrophils # 9.3 H Seg Neutrophils # Man Lymphocytes # (Manual) Monocytes # (Manual) PT INR D-Dimer Sodium 136 L Potassium 5.5 H Chloride Carbon Dioxide 20 L BUN 42 H Creatinine 3.5 H Glucose 278 H POC Glucose 372 H Hemoglobin A1c Ferritin Lactate Dehydrogenase Total Creatine Kinase C-Reactive Protein Albumin Urine Creatinine Coronavirus (PCR) 06/01/20 06/01/20 06/01/20 23:12 Unknown Unknown WBC RBC RDW Lymph % (Auto) Lymph # Mcpherson # Seg Neutrophils % Seg Neuts % (Manual) Lymphocytes % (Manual) Seg Neutrophils # Seg Neutrophils # Man Lymphocytes # (Manual) Monocytes # (Manual) PT INR D-Dimer Sodium Potassium Chloride Carbon Dioxide BUN Creatinine Glucose POC Glucose 398 H Hemoglobin A1c Ferritin Lactate Dehydrogenase Total Creatine Kinase C-Reactive Protein Albumin Urine Creatinine 161.6 H Coronavirus (PCR) Positive A 06/02/20 06/02/20 06/02/20 04:55 04:55 05:33 WBC 14.7 H RBC RDW 15.4 H Lymph % (Auto) 7.1 L Lymph # 1.1 L Mcpherson # Seg Neutrophils % 89.3 H Seg Neuts % (Manual) Lymphocytes % (Manual) Seg Neutrophils # 13.2 H Seg Neutrophils # Man Lymphocytes # (Manual) Monocytes # (Manual) PT INR D-Dimer Sodium 136 L Potassium Chloride 97.2 L Carbon Dioxide 21 L BUN 47 H Creatinine 3.5 H Glucose 244 H POC Glucose 262 H Hemoglobin A1c Ferritin Lactate Dehydrogenase Total Creatine Kinase C-Reactive Protein Albumin 3.2 L Urine Creatinine Coronavirus (PCR) 06/02/20 06/02/20 06/02/20 10:55 16:49 22:15 WBC RBC RDW Lymph % (Auto) Lymph # Mcpherson # Seg Neutrophils % Seg Neuts % (Manual) Lymphocytes % (Manual) Seg Neutrophils # Seg Neutrophils # Man Lymphocytes # (Manual) Monocytes # (Manual) PT INR D-Dimer Sodium Potassium Chloride Carbon Dioxide BUN Creatinine Glucose POC Glucose 160 H 214 H 292 H Hemoglobin A1c Ferritin Lactate Dehydrogenase Total Creatine Kinase C-Reactive Protein Albumin Urine Creatinine Coronavirus (PCR) 06/02/20 06/03/20 06/03/20 23:47 05:18 05:18 WBC 18.4 H RBC RDW 15.3 H Lymph % (Auto) Lymph # Mcpherson # Seg Neutrophils % Seg Neuts % (Manual) 91.0 H Lymphocytes % (Manual) 8.0 L Seg Neutrophils # Seg Neutrophils # Man 16.7 H Lymphocytes # (Manual) Monocytes # (Manual) PT INR D-Dimer Sodium Potassium Chloride Carbon Dioxide 20 L BUN 50 H Creatinine 3.1 H Glucose 248 H POC Glucose 292 H Hemoglobin A1c Ferritin Lactate Dehydrogenase Total Creatine Kinase C-Reactive Protein Albumin 2.8 L Urine Creatinine Coronavirus (PCR) 06/03/20 06/03/20 06/03/20 05:20 11:40 13:06 WBC RBC RDW Lymph % (Auto) Lymph # Mcpherson # Seg Neutrophils % Seg Neuts % (Manual) Lymphocytes % (Manual) Seg Neutrophils # Seg Neutrophils # Man Lymphocytes # (Manual) Monocytes # (Manual) PT INR D-Dimer Sodium Potassium Chloride Carbon Dioxide BUN Creatinine Glucose POC Glucose 208 H 180 H 167 H Hemoglobin A1c Ferritin Lactate Dehydrogenase Total Creatine Kinase C-Reactive Protein Albumin Urine Creatinine Coronavirus (PCR) 06/03/20 06/04/20 06/04/20 16:58 00:07 04:17 WBC 20.8 H RBC 5.20 H RDW 15.7 H Lymph % (Auto) Lymph # Mcpherson # Seg Neutrophils % Seg Neuts % (Manual) 91.0 H Lymphocytes % (Manual) 4.0 L Seg Neutrophils # Seg Neutrophils # Man 18.9 H Lymphocytes # (Manual) 0.8 L Monocytes # (Manual) 1.0 H PT INR D-Dimer Sodium Potassium Chloride Carbon Dioxide BUN Creatinine Glucose POC Glucose 152 H 206 H Hemoglobin A1c Ferritin Lactate Dehydrogenase Total Creatine Kinase C-Reactive Protein Albumin Urine Creatinine Coronavirus (PCR) 06/04/20 06/04/20 06/04/20 04:17 05:35 11:08 WBC RBC RDW Lymph % (Auto) Lymph # [place]pherson # Seg Neutrophils % Seg Neuts % (Manual) Lymphocytes % (Manual) Seg Neutrophils # Seg Neutrophils # Man Lymphocytes # (Manual) Monocytes # (Manual) PT INR D-Dimer Sodium 135 L Potassium 5.1 H Chloride 97.8 L Carbon Dioxide 20 L BUN 56 H Creatinine 3.1 H Glucose 178 H POC Glucose 166 H 159 H Hemoglobin A1c Ferritin Lactate Dehydrogenase Total Creatine Kinase C-Reactive Protein Albumin 3.0 L Urine Creatinine Coronavirus (PCR) 06/04/20 06/05/20 06/05/20 18:06 00:22 04:56 WBC 20.2 H RBC RDW 15.6 H Lymph % (Auto) 4.7 L Lymph # 0.9 L Mcpherson # 1.0 H Seg Neutrophils % Seg Neuts % (Manual) Lymphocytes % (Manual) Seg Neutrophils # 18.2 H Seg Neutrophils # Man Lymphocytes # (Manual) Monocytes # (Manual) PT INR D-Dimer Sodium Potassium Chloride Carbon Dioxide BUN Creatinine Glucose POC Glucose 190 H 234 H Hemoglobin A1c Ferritin Lactate Dehydrogenase Total Creatine Kinase C-Reactive Protein Albumin Urine Creatinine Coronavirus (PCR) 06/05/20 06/05/20 06/05/20 04:56 05:43 09:27 WBC RBC RDW Lymph % (Auto) Lymph # [place] # Seg Neutrophils % Seg Neuts % (Manual) Lymphocytes % (Manual) Seg Neutrophils # Seg Neutrophils # Man Lymphocytes # (Manual) Monocytes # (Manual) PT INR D-Dimer Sodium Potassium Chloride Carbon Dioxide 21 L BUN 63 H Creatinine 3.0 H Glucose 170 H POC Glucose 156 H 106 H Hemoglobin A1c Ferritin Lactate Dehydrogenase Total Creatine Kinase C-Reactive Protein Albumin 3.0 L Urine Creatinine Coronavirus (PCR) 06/05/20 06/05/20 15:50 23:36 WBC RBC RDW Lymph % (Auto) Lymph # [place]son # Seg Neutrophils % Seg Neuts % (Manual) Lymphocytes % (Manual) Seg Neutrophils # Seg Neutrophils # Man Lymphocytes # (Manual) Monocytes # (Manual) PT INR D-Dimer Sodium Potassium Chloride Carbon Dioxide BUN Creatinine Glucose POC Glucose 197 H 193 H Hemoglobin A1c Ferritin Lactate Dehydrogenase Total Creatine Kinase C-Reactive Protein Albumin Urine Creatinine Coronavirus (PCR)
[2020-06-06 11:24] LABS: Hemoglobin 14.4 gm/dl (11.8-15.2); Mean Corpuscular HGB Conc 34 % (32-34); Mean Corpuscular Volume 87 fl (84-94); Platelet Count 302 K/mm3 (140-440); Red Blood Count 4.95 M/mm3 (3.65-5.03); Red Cell Distribution Width 15.6 % (13.2-15.2)
[2020-06-06 11:41] LABS: Calcium 9.1 mg/dL (8.4-10.2)
[2020-06-06] MEDS: DEXTROSE 50% IN WATER (25GM) 50 ML SYRINGE IV PRN (12:36)
[2020-06-06 12:40] LABS: Total Cells Counted 100
[2020-06-06 12:41] LABS: Basophils % (Manual) 0 % (0.0-1.8); Eosinophils % (Manual) 0 % (0.0-4.3)
[2020-06-06 12:42] LABS: Anisocytosis 1+; Platelet Estimate Consistent w Auto
--- NOTE | 2020-06-06 13:04 | Progress Note ---
Assessment and Plan Assessment and plan: 54 year old male presenting with shortness of breath, with hypoxia on admission, saturation in the low 80s. PMHx of HTN PCP- Calin alicia Home med: ANTONIO, METOPROLOL, LORSTAN, HYDRALAZIN AND AMYLODPIN CXR: Bilateral lobar inflitrates- My own read 06/02: Continue current management. Patient on high flow. If can tolerate prone recommend prone position during hours of sleep. 06/03: Continue supportive care. Overall prognosis is guarded. Will discuss proceed with obtaining consent for convalescent plasma. Poor prognosis considering COVID-19 and complicated by renal failure. 06/04: Continue current therapy consent obtained for convalescent plasma. Will discuss with laboratory to obtain the plasma. 06/05: Continue supportive care. Poor prognosis. Patient will like to think about plasma therapy and not ready to sign the consent now. 06/06: Patient remains on high flow with hypoxia persistent despite 100%. Still wants to think about the convalescent plasma therapy. Continue current support with pulmonary assistance. Mild improvement in pulmonary status still not a candidate for Remdesivir. Will obtain nephrology consultation to assist in management Acute Hypoxic Respiratory failure 2019 novel sampson virus Pneumonia Bilateral penumonia KEITH WITH VASOMOTOR NEPHROPATHY ON CKD Stage 3 HTN DM with hyperglycemia Plan Continue support care Pulmonary and ID consult in put noted Started on steroids Remdesivir precluded due to renal function Start on Abx Labs pending Blood cultures Aspiration precautions DVT/GI prophy Plan discussed with the patient The high probability of a clinically significant, sudden or life threatening deterioration of the [pulmonary] system(s) required my full and direct attention, intervention and personal management. The aggregate critical care time was [35] minutes. This time is in addition to time spent performing reported procedures but includes the following: [x] Data Review and interpretation [x] Patient assessment and monitoring of vital signs [x] Documentation [x] Medication orders and management History Interval history: Patient seen and examined still on high flow due to persist hypoxia but no other complaints. I discussed again convalescent plasma with the patient he states t hat he has not thought about it but will think about it. I have discussed his dire critical situation with him he verbalized understanding Hospitalist Physical - Physical exam Narrative exam: VITAL SIGNS: Reviewed. GENERAL: The patient appears normally developed, moderate respiratory distress obese vital signs as documented. HEAD: No signs of head trauma. EYES: Pupils are equal. Extraocular motions intact. EARS: Hearing grossly intact. MOUTH: Oropharynx is normal. NECK: No adenopathy, no JVD. CHEST: Rapid respiratory rate chest with diminished breath sounds bilaterally. No wheezes, rales, or rhonchi. CARDIAC: Regular rate and rhythm. S1 and S2, without murmurs, gallops, or rubs. VASCULAR: No Edema. Peripheral pulses normal and equal in all extremities. ABDOMEN: Soft, non tender and non distended. No rebound or guarding, and no masses palpated. Bowel Sounds normal. MUSCULOSKELETAL: Good range of motion of all major joints. Extremities without clubbing, cyanosis or edema. NEUROLOGIC EXAM: Awake but lethargic and oriented x 3 No focal sensory or strength deficits. Speech normal. Follows commands. PSYCHIATRIC: Mood normal. SKIN: detail exam as documented in skin assessment - Constitutional Vitals: Temp Pulse Resp BP Pulse Ox 97.7 F 79 33 H 160/82 99 06/06/20 12:00 06/06/20 12:00 06/06/20 12:00 06/06/20 12:00 06/06/20 12:00 HEART Score - HEART Score Troponin: Troponin T 0.021 ng/mL (0.00-0.029) 05/31/20 15:23 Results - Labs CBC & Chem 7: 06/06/20 10:31 06/06/20 10:31 Labs: Laboratory Last Values WBC 18.3 K/mm3 (4.5-11.0) H 06/06/20 10:31 RBC 4.95 M/mm3 (3.65-5.03) 06/06/20 10:31 Hgb 14.4 gm/dl (11.8-15.2) 06/06/20 10:31 Hct 43.0 % (35.5-45.6) 06/06/20 10:31 MCV 87 fl (84-94) 06/06/20 10:31 MCH 29 pg (28-32) 06/06/20 10:31 MCHC 34 % (32-34) 06/06/20 10:31 RDW 15.6 % (13.2-15.2) H 06/06/20 10:31 Plt Count 302 K/mm3 (140-440) 06/06/20 10:31 Lymph % (Auto) 4.7 % (13.4-35.0) L 06/05/20 04:56 [place] % (Auto) 4.8 % (0.0-7.3) 06/05/20 04:56 Eos % (Auto) 0.0 % (0.0-4.3) 06/05/20 04:56 Baso % (Auto) 0.2 % (0.0-1.8) 06/05/20 04:56 Lymph # 0.9 K/mm3 (1.2-5.4) L 06/05/20 04:56 [place] # 1.0 K/mm3 (0.0-0.8) H 06/05/20 04:56 Eos # 0.0 K/mm3 (0.0-0.4) 06/05/20 04:56 Baso # 0.0 K/mm3 (0.0-0.1) 06/05/20 04:56 Add Manual Diff Complete 06/06/20 10:31 Total Counted 100 06/06/20 10:31 Seg Neutrophils % [employer] 06/05/20 04:56 Seg Neuts % (Manual) 90.0 % (40.0-70.0) H 06/06/20 10:31 Band Neutrophils % 0 % 06/06/20 10:31 Lymphocytes % (Manual) 6.0 % (13.4-35.0) L 06/06/20 10:31 Reactive Lymphs % (Man) 0 % 06/06/20 10:31 Monocytes % (Manual) 4.0 % (0.0-7.3) 06/06/20 10:31 Eosinophils % (Manual) 0 % (0.0-4.3) 06/06/20 10:31 Basophils % (Manual) 0 % (0.0-1.8) 06/06/20 10:31 Metamyelocytes % 0 % 06/06/20 10:31 Myelocytes % 0 % 06/06/20 10:31 Promyelocytes % 0 % 06/06/20 10:31 Blast Cells % 0 % 06/06/20 10:31 Nucleated RBC % Not Reportable 06/06/20 10:31 Seg Neutrophils # 18.2 K/mm3 (1.8-7.7) H 06/05/20 04:56 Seg Neutrophils # Man 16.5 K/mm3 (1.8-7.7) H 06/06/20 10:31 Band Neutrophils # 0.0 K/mm3 06/06/20 10:31 Lymphocytes # (Manual) 1.1 K/mm3 (1.2-5.4) L 06/06/20 10:31 Abs React Lymphs (Man) 0.0 K/mm3 06/06/20 10:31 Monocytes # (Manual) 0.7 K/mm3 (0.0-0.8) 06/06/20 10:31 Eosinophils # (Manual) 0.0 K/mm3 (0.0-0.4) 06/06/20 10:31 Basophils # (Manual) 0.0 K/mm3 (0.0-0.1) 06/06/20 10:31 Metamyelocytes # 0.0 K/mm3 06/06/20 10:31 Myelocytes # 0.0 K/mm3 06/06/20 10:31 Promyelocytes # 0.0 K/mm3 06/06/20 10:31 Blast Cells # 0.0 K/mm3 06/06/20 10:31 WBC Morphology Not Reportable 06/06/20 10:31 Hypersegmented Neuts Not Reportable 06/06/20 10:31 Hyposegmented Neuts Not Reportable 06/06/20 10:31 Hypogranular Neuts Not Reportable 06/06/20 10:31 Smudge Cells Not Reportable 06/06/20 10:31 Toxic Granulation Not Reportable 06/06/20 10:31 Toxic Vacuolation Not Reportable 06/06/20 10:31 Dohle Bodies Not Reportable 06/06/20 10:31 Pelger-Huet Anomaly Not Reportable 06/06/20 10:31 Edwige Rods Not Reportable 06/06/20 10:31 Platelet Estimate Consistent w auto 06/06/20 10:31 Clumped Platelets Not Reportable 06/06/20 10:31 Plt Clumps, EDTA Not Reportable 06/06/20 10:31 Large Platelets Not Reportable 06/06/20 10:31 Giant Platelets Not Reportable 06/06/20 10:31 Platelet Satelliting Not Reportable 06/06/20 10:31 Plt Morphology Comment Not Reportable 06/06/20 10:31 RBC Morphology Not Reportable 06/06/20 10:31 Dimorphic RBCs Not Reportable 06/06/20 10:31 Polychromasia Not Reportable 06/06/20 10:31 Hypochromasia Not Reportable 06/06/20 10:31 Poikilocytosis Not Reportable 06/06/20 10:31 Anisocytosis 1+ 06/06/20 10:31 Microcytosis Not Reportable 06/06/20 10:31 Macrocytosis Not Reportable 06/06/20 10:31 Spherocytes Not Reportable 06/06/20 10:31 Pappenheimer Bodies Not Reportable 06/06/20 10:31 Sickle Cells Not Reportable 06/06/20 10:31 Target Cells Not Reportable 06/06/20 10:31 Tear Drop Cells Not Reportable 06/06/20 10:31 Ovalocytes Not Reportable 06/06/20 10:31 Helmet Cells Not Reportable 06/06/20 10:31 Sanchez-Paisley Bodies Not Reportable 06/06/20 10:31 [place] Rings Not Reportable 06/06/20 10:31 Mary Cells Not Reportable 06/06/20 10:31 Bite Cells Not Reportable 06/06/20 10:31 Crenated Cell Not Reportable 06/06/20 10:31 Elliptocytes Not Reportable 06/06/20 10:31 Acanthocytes (Spur) Not Reportable 06/06/20 10:31 Rouleaux Not Reportable 06/06/20 10:31 Hemoglobin C Crystals Not Reportable 06/06/20 10:31 Schistocytes Not Reportable 06/06/20 10:31 Malaria parasites Not Reportable 06/06/20 10:31 Edinson Bodies Not Reportable 06/06/20 10:31 Hem Pathologist Commnt No 06/06/20 10:31 PT 11.5 Sec. (12.2-14.9) L 05/31/20 15:23 INR 0.83 (0.87-1.13) L 05/31/20 15:23 D-Dimer 738.85 ng/mlDDU (0-234) H 05/31/20 16:49 Sodium 138 mmol/L (137-145) 06/06/20 10:31 Potassium 4.2 mmol/L (3.6-5.0) 06/06/20 10:31 Chloride 99.1 mmol/L (98-107) 06/06/20 10:31 Carbon Dioxide 22 mmol/L (22-30) 06/06/20 10:31 Anion Gap 21 mmol/L 06/06/20 10:31 BUN 65 mg/dL (9-20) H 06/06/20 10:31 Creatinine 2.7 mg/dL (0.8-1.3) H 06/06/20 10:31 Estimated GFR 30 ml/min 06/06/20 10:31 BUN/Creatinine Ratio 24 % 06/06/20 10:31 Glucose 61 mg/dL (75-100) L 06/06/20 10:31 POC Glucose 50 (70-105) L 06/06/20 12:34 Hemoglobin A1c 8.5 % (4-6) H 05/31/20 16:49 Calcium 9.1 mg/dL (8.4-10.2) 06/06/20 10:31 Magnesium 2.20 mg/dL (1.7-2.3) 05/31/20 15:23 Ferritin 599.0 ng/mL (30.0-300.0) H 05/31/20 16:49 Total Bilirubin 0.40 mg/dL (0.1-1.2) 06/05/20 04:56 AST 18 units/L (5-40) 06/05/20 04:56 ALT 23 units/L (7-56) 06/05/20 04:56 Alkaline Phosphatase 93 units/L (35-129) 06/05/20 04:56 Lactate Dehydrogenase 409 units/L (91-180) H 05/31/20 16:49 Total Creatine Kinase 325 units/L (55-170) H 05/31/20 15:23 Troponin T 0.021 ng/mL (0.00-0.029) 05/31/20 15:23 C-Reactive Protein 14.00 mg/dL (0.00-1.30) H 05/31/20 16:49 NT-Pro-B Natriuret Pep 111.3 pg/mL (0-900) 06/01/20 13:41 Total Protein 7.0 g/dL (6.3-8.2) 06/05/20 04:56 Albumin 3.0 g/dL (3.9-5) L 06/05/20 04:56 Albumin/Globulin Ratio 0.8 % 06/05/20 04:56 Procalcitonin 0.37 ng/mL (<0.15) 06/05/20 05:01 Urine Color Yellow (Yellow) 06/01/20 Unknown Urine Turbidity Clear (Clear) 06/01/20 Unknown Urine pH 5.0 (5.0-7.0) 06/01/20 Unknown Ur Specific [place] 1.018 (1.003-1.030) 06/01/20 Unknown Urine Protein >500 mg/dL (Negative) 06/01/20 Unknown Urine Glucose (UA) >=500 mg/dL (Negative) 06/01/20 Unknown Urine Ketones Tr mg/dL (Negative) 06/01/20 Unknown Urine Blood Mod (Negative) 06/01/20 Unknown Urine Nitrite Neg (Negative) 06/01/20 Unknown Urine Bilirubin Neg (Negative) 06/01/20 Unknown Urine Urobilinogen < 2.0 mg/dL (<2.0) 06/01/20 Unknown Ur Leukocyte Esterase Neg (Negative) 06/01/20 Unknown Urine WBC (Auto) 4.0 /HPF (0.0-6.0) 06/01/20 Unknown Urine RBC (Auto) 9.0 /HPF (0.0-6.0) 06/01/20 Unknown U Epithel Cells (Auto) 1.0 /HPF (0-13.0) 06/01/20 Unknown Urine Mucus Few /HPF 06/01/20 Unknown Urine Eosinophils None seen (None Seen) 06/01/20 Unknown Urine Creatinine 161.6 mg/dL (0.1-20.0) H 06/01/20 Unknown Urine Sodium 47 mmol/L 06/01/20 Unknown Proteinase 3 (PR3) Ab <1.0 AI (<1.0) 06/03/20 13:17 Myeloperoxidase Ab <1.0 AI (<1.0) 06/03/20 13:17 Coronavirus (PCR) Positive (Negative) A 06/01/20 Unknown Hepatitis A IgM Ab Non-reactive (NonReactive) 06/03/20 10:39 Hep Bs Antigen Non-reactive (Negative) 06/03/20 10:39 Hep B Core IgM Ab Non-reactive (NonReactive) 06/03/20 10:39 Hepatitis C Antibody Non-reactive (NonReactive) 06/03/20 10:39 Microbiology: Microbiology 05/31/20 15:23 Peripheral/Venous Blood Culture - Final NO GROWTH AFTER 5 DAYS 05/31/20 15:26 Peripheral/Venous Blood Culture - Final NO GROWTH AFTER 5 DAYS Hess/IV: Voiding Method Urinal IV Catheter Type [Right INT / Saline Lock Antecubital] Active Medications - Current Medications Current Medications: Generic Name Dose Route Start Last Admin Trade Name Freq PRN Reason Stop Dose Admin Acetaminophen 650 mg 05/31/20 15:49 Tylenol PO Q6H PRN Pain MILD(1-3)/Fever >100.5/LEBRON Albuterol 2.5 mg 05/31/20 15:49 Proventil IH Q3HRT PRN Shortness Of Breath Amlodipine Besylate 10 mg 06/01/20 10:00 06/06/20 10:41 Amlodipine PO 10 mg DAILY CHERI Administration Atorvastatin Calcium 20 mg 05/31/20 22:00 06/05/20 21:55 Lipitor PO 20 mg QHS CHERI Administration Bisacodyl 10 mg 05/31/20 15:57 Dulcolax MD QDAY PRN Constipation unrelieved by MOM Chlorpromazine HCl 10 mg 05/31/20 15:57 Thorazine PO Q6H PRN Hiccups Dexamethasone 6 mg 06/01/20 10:00 06/06/20 10:40 Decadron PO 06/11/20 09:59 6 mg DAILY CHERI Administration Dextrose 50 ml 05/31/20 15:59 06/06/20 12:36 D50w (25gm) Syringe IV 20 ml Q30MIN PRN Administration Hypoglycemia Protocol Enoxaparin Sodium 30 mg 06/01/20 10:00 06/06/20 10:42 Enoxaparin SUB-Q 30 mg QDAY CHERI Administration Insulin Glargine 100 units 05/31/20 22:00 06/05/20 21:54 Lantus SUB-Q 100 units QHS CHERI Administration Insulin Human Lispro 0 unit 05/31/20 16:00 06/06/20 10:42 Humalog SUB-Q Not Given Q6H [facility] Protocol Naloxone HCl 0.1 mg 05/31/20 15:49 Naloxone IV Q2MIN PRN Res Rate </= 8 or 02 SAT < 92% Ondansetron HCl 4 mg 05/31/20 15:57 Zofran IV Q8H PRN N/V unrelieved by Reglan Oxycodone/Acetaminophen 1 tab 05/31/20 15:49 06/03/20 00:57 Percocet 5/325 PO 1 tab Q6H PRN Administration Pain, Moderate (4-6) Sodium Chloride 10 ml 05/31/20 22:00 06/06/20 10:43 Sodium Chloride Flush Syringe 10 Ml IV 10 ml BID CHERI Administration Sodium Chloride 10 ml 05/31/20 15:49 Sodium Chloride Flush Syringe 10 Ml IV PRN PRN LINE FLUSH Tizanidine HCl 4 mg 05/31/20 15:57 Zanaflex PO Q8H PRN Muscle Spasm Nutrition/Malnutrition Assess - Dietary Evaluation Nutrition/Malnutrition Findings: Nutrition Notes Start: 06/01/20 10:42 Freq: Status: Active Protocol: Document 06/06/20 12:01 [email or web address] (Rec: 06/06/20 12:19 [email or web address]) Co-Sign 06/06/20 12:01 NHALL Nutrition Notes Initial or Follow up Assessment Current Diagnosis CKD(stage I-IV),Diabetes, Hypertension,Stroke Other Pertinent Diagnosis COVID-19 (+) Current Diet Renal Labs/Tests Reviewed Height 5 ft 9 in Weight 113 kg [place] Body Weight (kg) 72.72 BMI 36.8 Weight Status Obese Subjective/Other Information Unable to reach pt by phone with two attempts. Spoke to RN about intakes. Consumes 100% of meals when not on Bipap. Burn Absent Trauma Absent Minimum of two criteria No #1 Nutrition Diagnosis Altered nutrition-related laboratory values Etiology uncontrolled BG As Evidenced by Signs and Symptoms HgbA1c 8.5 Is patient on ventilator? No Is Patient Ambulatory and/or Out of Bed No REE-([facility]-confined to bed) 2344.476 Kcal/Kg value to use for calculation 16 Approximate Energy Requirements Using 1808 kcal/Kg Additional Notes Protein Needs (1-1.2g/kg AdBW) 92-110g Fluid: 1ml/kcal Nutrition Intervention Change Diet Order: Continue Goal #1 Improve BG control Goal #2 Continued Adequate oral intake Anticipated Discharge Needs: CHO Control diet Follow-Up By: 06/11/20 Additional Comments F/U for intakes and diet education needs
--- NOTE | 2020-06-06 16:59 | Progress Note ---
Assessment and Plan Cultures: Coronavirus PCR:positive Blood culture: no growth A/P: 54-year-old male with diabetes, CKD, prior CVA, obesity was admitted to the hospital with complaints of cough, shortness of breath along with fatigue and malaise: #Severe COVID pneumonia: CRP 14.0, LDH 409, ferritin 599, Ddimer 738. #Acute hypoxic respiratory failure: on high flow. #KEITH on CKD Recs: Continue IV/PO Dexamethasone 6 mg daily x 10 days Not a candidate for Remdesivir due to renal failure trend ferritin, LDH, d-dimer, CRP every 2-3 days for risk stratification and to assess disease progression prophylactic anticoagulation based on d-dimer Ordered repeat procalcitonin due to elevated white count, however that may just be due to steroids. Darby Redding MD [facility] ([facility]) M: [phone] O: [phone] F: [phone] Subjective Date of service: 06/06/20 Principal diagnosis: keith Interval history: Afebrile, white count 18. Objective - Exam Narrative Exam: Physical exam deferred due to PPE conservation strategy. Please refer to primary team's note. - Constitutional Vitals: Vital Signs Temp Pulse Resp BP Pulse Ox 97.7 F 67 28 H 151/81 98 06/06/20 12:00 06/06/20 16:00 06/06/20 16:00 06/06/20 16:00 06/06/20 16:00 Temperature -Last 24 Hours Temperature 97.7 F Temperature 97.6 F Temperature 98.8 F Temperature 98.7 F Temperature 98.3 F - Labs CBC & Chem 7: 06/06/20 10:31 06/06/20 10:31 Labs: Abnormal lab results 06/05/20 06/06/20 06/06/20 Range/Units 23:36 10:31 10:31 WBC 18.3 H (4.5-11.0) K/mm3 RDW 15.6 H (13.2-15.2) % Seg Neuts % (Manual) 90.0 H (40.0-70.0) % Lymphocytes % (Manual) 6.0 L (13.4-35.0) % Seg Neutrophils # Man 16.5 H (1.8-7.7) K/mm3 Lymphocytes # (Manual) 1.1 L (1.2-5.4) K/mm3 BUN 65 H (9-20) mg/dL Creatinine 2.7 H (0.8-1.3) mg/dL Glucose 61 L (75-100) mg/dL POC Glucose 193 H (70-105) 06/06/20 Range/Units 12:34 WBC (4.5-11.0) K/mm3 RDW (13.2-15.2) % Seg Neuts % (Manual) (40.0-70.0) % Lymphocytes % (Manual) (13.4-35.0) % Seg Neutrophils # Man (1.8-7.7) K/mm3 Lymphocytes # (Manual) (1.2-5.4) K/mm3 BUN (9-20) mg/dL Creatinine (0.8-1.3) mg/dL Glucose (75-100) mg/dL POC Glucose 50 L (70-105)
[2020-06-07 05:29] LABS: Basophils % (Auto) 0.2 % (0.0-1.8); Hemoglobin 14.6 gm/dl (11.8-15.2); Lymphocytes # (Auto) 0.8 K/mm3 (1.2-5.4); Lymphocytes % (Auto) 4.9 % (13.4-35.0); Mean Corpuscular HGB Conc 34 % (32-34); Mean Corpuscular Volume 87 fl (84-94); Monocytes # (Auto) 0.9 K/mm3 (0.0-0.8); Monocytes % (Auto) 5.6 % (0.0-7.3); Platelet Count 305 K/mm3 (140-440); Red Blood Count 4.95 M/mm3 (3.65-5.03); Red Cell Distribution Width 15.6 % (13.2-15.2)
[2020-06-07 05:40] LABS: Calcium 8.9 mg/dL (8.4-10.2)
[2020-06-07] MEDS: DEXTROSE 50% IN WATER (25GM) 50 ML SYRINGE IV PRN ×2 (05:57→10:48)
[2020-06-07] MEDS: INSULIN LISPRO 100 UNIT/ML VIAL 3 mL SUB-Q SCH ×3 (05:57→17:44)
--- NOTE | 2020-06-07 08:21 | Progress Note ---
Assessment and Plan 1. Acute kidney injury: KEITH superimposed on CKD satge 3 in the setting of severe COVID infection. Renal US pending. UA results noted. Monitor renal function. Creatinine level is improving, slightly better today. Avoid nephrotoxic agents. Meds dosage based on GFR. Monitor for GAMING DIRECTOR needs. No acute indication for GAMING DIRECTOR today. 2. FEN: Hyperkalemia, Kayexalate ordered, monitor. Metabolic acidosis, improved, monitor. Monitor lytes and volume status. 3. Acute hypoxic respiratory failure: 2/2 COVID-19 PNA. On Decadron. On HFNC O2 / BIPAP. Followed by Pulmonary. 4. Bilateral COVID-19 PNA: Followed by ID. 5. DM with hyperglycemia: Accu-Check, sliding scale coverage, ADA diet. 6. Hypertension: Monitor BP. - Subjective: Patient was seen and examined from outside the [facility]. In IMCU. - General Appearance General appearance: well-developed, well-nourished, appears stated age, no distress, on BIPAP HEENT: ATNC Neurologic: alert Subjective Date of service: 06/07/20 Principal diagnosis: keith Objective - Vital Signs Vital signs: Vital Signs - 12hr 06/06/20 06/06/20 06/06/20 20:30 21:00 21:26 Temperature Pulse Rate 79 73 73 Pulse Rate [ From Monitor] Respiratory 11 L 33 H 29 H Rate Blood Pressure 131/77 145/76 145/76 O2 Sat by Pulse 96 93 94 Oximetry 06/06/20 06/06/20 06/06/20 21:30 22:00 22:30 Temperature Pulse Rate 77 80 88 Pulse Rate [ From Monitor] Respiratory 29 H 24 34 H Rate Blood Pressure 145/76 142/58 142/58 O2 Sat by Pulse 95 98 95 Oximetry 06/06/20 06/06/20 06/06/20 23:00 23:30 23:43 Temperature 99 F Pulse Rate 85 77 Pulse Rate [ From Monitor] Respiratory 21 27 H Rate Blood Pressure 142/58 142/58 O2 Sat by Pulse 95 94 Oximetry 06/07/20 06/07/20 06/07/20 00:00 00:04 00:30 Temperature Pulse Rate 76 82 77 Pulse Rate [ 68 From Monitor] Respiratory 28 H 30 H 31 H Rate Blood Pressure 146/53 99/61 99/61 O2 Sat by Pulse 98 95 94 Oximetry 06/07/20 06/07/20 06/07/20 01:00 01:30 02:00 Temperature Pulse Rate 83 81 72 Pulse Rate [ From Monitor] Respiratory 23 20 21 Rate Blood Pressure 99/61 110/68 110/68 O2 Sat by Pulse 93 94 Oximetry 06/07/20 06/07/20 06/07/20 02:30 03:00 03:30 Temperature Pulse Rate 75 79 82 Pulse Rate [ From Monitor] Respiratory 30 H 31 H 38 H Rate Blood Pressure 145/57 162/71 162/71 O2 Sat by Pulse 95 95 93 Oximetry 06/07/20 06/07/20 06/07/20 03:53 04:00 04:25 Temperature 99.4 F Pulse Rate 82 Pulse Rate [ 68 From Monitor] Respiratory 21 28 H Rate Blood Pressure 97/53 O2 Sat by Pulse 96 98 Oximetry 06/07/20 06/07/20 06/07/20 04:30 05:00 05:30 Temperature Pulse Rate 78 78 74 Pulse Rate [ From Monitor] Respiratory 29 H 19 30 H Rate Blood Pressure 97/53 109/55 109/55 O2 Sat by Pulse 90 91 94 Oximetry 06/07/20 06/07/20 06/07/20 06:00 06:30 07:00 Temperature Pulse Rate 76 82 78 Pulse Rate [ From Monitor] Respiratory 28 H 22 19 Rate Blood Pressure 109/55 155/68 160/96 O2 Sat by Pulse 95 94 88 Oximetry 06/07/20 06/07/20 07:30 08:00 Temperature 97.6 F Pulse Rate 81 80 Pulse Rate [ From Monitor] Respiratory 26 H 25 H Rate Blood Pressure 160/96 143/75 O2 Sat by Pulse 92 94 Oximetry - Lab 06/07/20 04:40 06/07/20 04:40 Most recent lab results Calcium 8.9 mg/dL (8.4-10.2) 06/07/20 04:40 Magnesium 2.20 mg/dL (1.7-2.3) 05/31/20 15:23 Urine Creatinine 161.6 mg/dL (0.1-20.0) H 06/01/20 Unknown Urine Sodium 47 mmol/L 06/01/20 Unknown Medications & Allergies - Medications Allergies/Adverse Reactions: Allergies lisinopril Allergy (Verified 05/31/20 13:03) Angioedema Penicillins Allergy (Verified 05/31/20 13:03) Hives Home Medications: Home Medications Medication Instructions Recorded Confirmed Last Taken Type Acetaminophen [Acetaminophen TAB] 650 mg PO Q4H PRN #30 tablet 02/15/17 Unknown Rx AtorvaSTATin [Lipitor] 20 mg PO QHS tablet 02/15/17 Unknown Rx Cipro/Dexameth 0.3/0.1% [Ciprodex 4 drops AU BID bottle 02/15/17 Unknown Rx OTIC] Detemir (Nf) [Levemir (Nf)] 100 units SUB-Q QHS units 02/15/17 Unknown Rx Dextrose 50% in Water [D50W (25GM) 50 ml IV PRN PRN #30 syringe 02/15/17 Unknown Rx Syringe] Enoxaparin 40 mg SUB-Q QDAY syringe 02/15/17 Unknown Rx Lipase/Protease/Amylase [Pancreaze 1 each FEEDTUBE PRN PRN #30 capsule 02/15/[address],500 Unit] Metoprolol [Lopressor TAB] 25 mg PO BID tablet 02/15/17 Unknown Rx Metoprolol [Lopressor TAB] 25 mg PO BID #60 tablet 02/15/17 Unknown Rx Ondansetron [Zofran INJ] 4 mg IV Q8H PRN #30 vial 02/15/17 Unknown Rx Prednisone [predniSONE 5 mg (6-Day 5 mg PO .TAPER #1 tab.ds.pk 02/15/17 Unknown Rx Pack, 21 Tabs)] Simple Syrup 15 ml FEEDTUBE PRN PRN #30 02/15/17 Unknown Rx oral.liqd Simple Syrup 30 ml FEEDTUBE PRN PRN #30 02/15/17 Unknown Rx oral.liqd Sodium Bicarbonate 325 mg FEEDTUBE PRN PRN #30 tablet 02/15/17 Unknown Rx amLODIPine 10 mg PO DAILY tablet 02/15/17 Unknown Rx amLODIPine [Norvasc] 10 mg PO DAILY #30 tab 02/15/17 Unknown Rx bisacodyL [Dulcolax suppos] 10 mg MS QDAY PRN #30 supp.rect 02/15/17 Unknown Rx chlorproMAZINE [Thorazine] 10 mg PO Q6H PRN #30 tablet 02/15/17 Unknown Rx dexAMETHasone [Decadron] 6 mg IV Q6HR vial 02/15/17 Unknown Rx hydrALAZINE [Apresoline INJ] 10 mg IV Q6HR PRN #30 vial 02/15/17 Unknown Rx oxyCODONE /ACETAMINOPHEN [Percocet 1 tab PO Q4H PRN #30 tablet 02/15/17 Unknown Rx 5/325 mg] oxyCODONE /ACETAMINOPHEN [Percocet 1 tab PO Q4HR #30 tab 02/15/17 Unknown Rx 5/325] tiZANidine [Zanaflex 4mg TAB] 4 mg PO Q8H PRN #30 tablet 02/15/17 Unknown Rx Permethrin 5% [Acticin 5% CREAM] 1 applicatio TP ONCE #1 tube 06/11/17 Unknown Rx Azithromycin [Zithromax Z-BENJIE] 250 mg PO DAILY 1 Days tab 11/23/18 Unknown Rx Ondansetron [Zofran Odt] 4 mg PO Q8HR PRN #14 tab.rapdis 11/23/18 Unknown Rx traMADoL [Ultram 50 MG tab] 50 mg PO Q4HR PRN #14 tablet 11/23/18 Unknown Rx Active Medications: Generic Name Dose Route Start Last Admin Trade Name Freq PRN Reason Stop Dose Admin Acetaminophen 650 mg 05/31/20 15:49 Tylenol PO Q6H PRN Pain MILD(1-3)/Fever >100.5/LEBRON Albuterol 2.5 mg 05/31/20 15:49 Proventil IH Q3HRT PRN Shortness Of Breath Amlodipine Besylate 10 mg 06/01/20 10:00 06/06/20 10:41 Amlodipine PO 10 mg DAILY CHERI Administration Atorvastatin Calcium 20 mg 05/31/20 22:00 06/06/20 22:56 Lipitor PO Not Given QHS CHERI Bisacodyl 10 mg 05/31/20 15:57 Dulcolax MS QDAY PRN Constipation unrelieved by MOM Chlorpromazine HCl 10 mg 05/31/20 15:57 Thorazine PO Q6H PRN Hiccups Dexamethasone 6 mg 06/01/20 10:00 06/06/20 10:40 Decadron PO 06/11/20 09:59 6 mg DAILY CHERI Administration Dextrose 50 ml 05/31/20 15:59 06/07/20 05:57 D50w (25gm) Syringe IV 50 ml Q30MIN PRN Administration Hypoglycemia Protocol Enoxaparin Sodium 30 mg 06/01/20 10:00 06/06/20 10:42 Enoxaparin SUB-Q 30 mg QDAY CHERI Administration Insulin Human Lispro 0 unit 05/31/20 16:00 06/07/20 05:57 Humalog SUB-Q Not Given Q6H [facility] Protocol Naloxone HCl 0.1 mg 05/31/20 15:49 Naloxone IV Q2MIN PRN Res Rate </= 8 or 02 SAT < 92% Ondansetron HCl 4 mg 05/31/20 15:57 Zofran IV Q8H PRN N/V unrelieved by Anna Oxycodone/Acetaminophen 1 tab 05/31/20 15:49 06/03/20 00:57 Percocet 5/325 PO 1 tab Q6H PRN Administration Pain, Moderate (4-6) Sodium Chloride 10 ml 05/31/20 22:00 06/06/20 22:52 Sodium Chloride Flush Syringe 10 Ml IV 10 ml BID CHERI Administration Sodium Chloride 10 ml 05/31/20 15:49 Sodium Chloride Flush Syringe 10 Ml IV PRN PRN LINE FLUSH Tizanidine HCl 4 mg 05/31/20 15:57 Zanaflex PO Q8H PRN Muscle Spasm
[2020-06-07] MEDS: amLODIPine 10 MG TAB PO SCH (10:04)
[2020-06-07] MEDS: ENOXAPARIN 30 MG/0.3 ML INJ SUB-Q SCH (10:04)
[2020-06-07] MEDS: DEXAMETHASONE 4 MG TAB PO SCH (10:15)
--- NOTE | 2020-06-07 11:19 | Progress Note ---
Assessment and Plan 54 y/o male with acute respiratory failure, secondary to COVID 19 pneumonia and possibly acute renal failure 1. Wean FiO2 for sats >88%, have not been able to do this secondary to elevated oxygen requirements. 2. Agree with steroids as ordered by ID, unfortunately not a candidate for remdesivir given renal function 3. Await patient decision on plasma 4. Prone as much as tolerated during the day and sleep prone at night 5. Follow up renal recs, NO HD per them 6. overall prognosis is guarded High risk for intubation. Subjective Date of service: 06/07/20 Principal diagnosis: talia Interval history: Still requiring continuous bipap. Will desat on NRB and HFNC. Awake and alert. Objective Vital Signs - 12hr 06/06/20 06/06/20 06/07/20 23:30 23:43 00:00 Temperature 99 F Pulse Rate 77 76 Pulse Rate [ 68 From Monitor] Respiratory 27 H 28 H Rate Blood Pressure 142/58 146/53 O2 Sat by Pulse 94 98 Oximetry 06/07/20 06/07/20 06/07/20 00:04 00:30 01:00 Temperature Pulse Rate 82 77 83 Pulse Rate [ From Monitor] Respiratory 30 H 31 H 23 Rate Blood Pressure 99/61 99/61 99/61 O2 Sat by Pulse 95 94 93 Oximetry 06/07/20 06/07/20 06/07/20 01:30 02:00 02:30 Temperature Pulse Rate 81 72 75 Pulse Rate [ From Monitor] Respiratory 20 21 30 H Rate Blood Pressure 110/68 110/68 145/57 O2 Sat by Pulse 94 95 Oximetry 06/07/20 06/07/20 06/07/20 03:00 03:30 03:53 Temperature 99.4 F Pulse Rate 79 82 Pulse Rate [ From Monitor] Respiratory 31 H 38 H Rate Blood Pressure 162/71 162/71 O2 Sat by Pulse 95 93 Oximetry 06/07/20 06/07/20 06/07/20 04:00 04:25 04:30 Temperature Pulse Rate 82 78 Pulse Rate [ 68 From Monitor] Respiratory 21 28 H 29 H Rate Blood Pressure 97/53 97/53 O2 Sat by Pulse 96 98 90 Oximetry 06/07/20 06/07/20 06/07/20 05:00 05:30 06:00 Temperature Pulse Rate 78 74 76 Pulse Rate [ From Monitor] Respiratory 19 30 H 28 H Rate Blood Pressure 109/55 109/55 109/55 O2 Sat by Pulse 91 94 95 Oximetry 06/07/20 06/07/20 06/07/20 06:30 07:00 07:30 Temperature Pulse Rate 82 78 81 Pulse Rate [ From Monitor] Respiratory 22 19 26 H Rate Blood Pressure 155/68 160/96 160/96 O2 Sat by Pulse 94 88 92 Oximetry 06/07/20 06/07/20 06/07/20 08:00 08:20 08:30 Temperature 97.6 F Pulse Rate 80 84 82 Pulse Rate [ From Monitor] Respiratory 25 H 29 H 26 H Rate Blood Pressure 143/75 143/75 143/75 O2 Sat by Pulse 94 95 94 Oximetry 06/07/20 06/07/20 09:00 10:04 Temperature Pulse Rate 84 84 Pulse Rate [ From Monitor] Respiratory 19 Rate Blood Pressure 151/72 151/72 O2 Sat by Pulse 100 Oximetry CBC and BMP: 06/07/20 04:40 06/07/20 04:40 ABG, PT/INR, D-dimer: PT/INR, D-dimer PT 11.5 Sec. (12.2-14.9) L 05/31/20 15:23 INR 0.83 (0.87-1.13) L 05/31/20 15:23 D-Dimer 738.85 ng/mlDDU (0-234) H 05/31/20 16:49 Abnormal lab findings: Abnormal Labs 05/31/20 05/31/20 05/31/20 15:23 15:23 15:23 WBC RBC RDW Lymph % (Auto) Lymph # [place] # Seg Neutrophils % Seg Neuts % (Manual) Lymphocytes % (Manual) Seg Neutrophils # Seg Neutrophils # Man Lymphocytes # (Manual) Monocytes # (Manual) PT INR D-Dimer Sodium Potassium Chloride Carbon Dioxide BUN Creatinine Glucose 280 H POC Glucose Hemoglobin A1c Ferritin 583.4 H Lactate Dehydrogenase 392 H Total Creatine Kinase 325 H C-Reactive Protein 14.30 H Albumin Urine Creatinine Coronavirus (PCR) 05/31/20 05/31/20 05/31/20 15:23 15:23 15:23 WBC RBC RDW 15.7 H Lymph % (Auto) 12.9 L Lymph # 1.0 L [place] # Seg Neutrophils % 81.7 H Seg Neuts % (Manual) Lymphocytes % (Manual) Seg Neutrophils # Seg Neutrophils # Man Lymphocytes # (Manual) Monocytes # (Manual) PT 11.5 L INR 0.83 L D-Dimer Sodium 134 L Potassium Chloride 97.2 L Carbon Dioxide BUN 28 H Creatinine 3.0 H Glucose 279 H POC Glucose Hemoglobin A1c Ferritin Lactate Dehydrogenase Total Creatine Kinase C-Reactive Protein Albumin 3.3 L Urine Creatinine Coronavirus (PCR) 05/31/20 05/31/20 05/31/20 16:47 16:49 16:49 WBC RBC RDW Lymph % (Auto) Lymph # [place] # Seg Neutrophils % Seg Neuts % (Manual) Lymphocytes % (Manual) Seg Neutrophils # Seg Neutrophils # Man Lymphocytes # (Manual) Monocytes # (Manual) PT INR D-Dimer 738.85 H Sodium Potassium Chloride Carbon Dioxide BUN Creatinine Glucose 258 H POC Glucose 239 H Hemoglobin A1c Ferritin Lactate Dehydrogenase 409 H Total Creatine Kinase C-Reactive Protein 14.00 H Albumin Urine Creatinine Coronavirus (PCR) 05/31/20 05/31/20 06/01/20 16:49 16:49 10:15 WBC RBC RDW Lymph % (Auto) Lymph # [place] # Seg Neutrophils % Seg Neuts % (Manual) Lymphocytes % (Manual) Seg Neutrophils # Seg Neutrophils # Man Lymphocytes # (Manual) Monocytes # (Manual) PT INR D-Dimer Sodium Potassium Chloride Carbon Dioxide BUN Creatinine Glucose POC Glucose 277 H Hemoglobin A1c 8.5 H Ferritin 599.0 H Lactate Dehydrogenase Total Creatine Kinase C-Reactive Protein Albumin Urine Creatinine Coronavirus (PCR) 06/01/20 06/01/20 06/01/20 13:41 13:41 16:10 WBC RBC RDW 15.3 H Lymph % (Auto) 8.4 L Lymph # 0.9 L [place] # Seg Neutrophils % 86.9 H Seg Neuts % (Manual) Lymphocytes % (Manual) Seg Neutrophils # 9.3 H Seg Neutrophils # Man Lymphocytes # (Manual) Monocytes # (Manual) PT INR D-Dimer Sodium 136 L Potassium 5.5 H Chloride Carbon Dioxide 20 L BUN 42 H Creatinine 3.5 H Glucose 278 H POC Glucose 372 H Hemoglobin A1c Ferritin Lactate Dehydrogenase Total Creatine Kinase C-Reactive Protein Albumin Urine Creatinine Coronavirus (PCR) 06/01/20 06/01/20 06/01/20 23:12 Unknown Unknown WBC RBC RDW Lymph % (Auto) Lymph # [place] # Seg Neutrophils % Seg Neuts % (Manual) Lymphocytes % (Manual) Seg Neutrophils # Seg Neutrophils # Man Lymphocytes # (Manual) Monocytes # (Manual) PT INR D-Dimer Sodium Potassium Chloride Carbon Dioxide BUN Creatinine Glucose POC Glucose 398 H Hemoglobin A1c Ferritin Lactate Dehydrogenase Total Creatine Kinase C-Reactive Protein Albumin Urine Creatinine 161.6 H Coronavirus (PCR) Positive A 06/02/20 06/02/20 06/02/20 04:55 04:55 05:33 WBC 14.7 H RBC RDW 15.4 H Lymph % (Auto) 7.1 L Lymph # 1.1 L [place] # Seg Neutrophils % 89.3 H Seg Neuts % (Manual) Lymphocytes % (Manual) Seg Neutrophils # 13.2 H Seg Neutrophils # Man Lymphocytes # (Manual) Monocytes # (Manual) PT INR D-Dimer Sodium 136 L Potassium Chloride 97.2 L Carbon Dioxide 21 L BUN 47 H Creatinine 3.5 H Glucose 244 H POC Glucose 262 H Hemoglobin A1c Ferritin Lactate Dehydrogenase Total Creatine Kinase C-Reactive Protein Albumin 3.2 L Urine Creatinine Coronavirus (PCR) 06/02/20 06/02/20 06/02/20 10:55 16:49 22:15 WBC RBC RDW Lymph % (Auto) Lymph # [place] # Seg Neutrophils % Seg Neuts % (Manual) Lymphocytes % (Manual) Seg Neutrophils # Seg Neutrophils # Man Lymphocytes # (Manual) Monocytes # (Manual) PT INR D-Dimer Sodium Potassium Chloride Carbon Dioxide BUN Creatinine Glucose POC Glucose 160 H 214 H 292 H Hemoglobin A1c Ferritin Lactate Dehydrogenase Total Creatine Kinase C-Reactive Protein Albumin Urine Creatinine Coronavirus (PCR) 06/02/20 06/03/20 06/03/20 23:47 05:18 05:18 WBC 18.4 H RBC RDW 15.3 H Lymph % (Auto) Lymph # [place] # Seg Neutrophils % Seg Neuts % (Manual) 91.0 H Lymphocytes % (Manual) 8.0 L Seg Neutrophils # Seg Neutrophils # Man 16.7 H Lymphocytes # (Manual) Monocytes # (Manual) PT INR D-Dimer Sodium Potassium Chloride Carbon Dioxide 20 L BUN 50 H Creatinine 3.1 H Glucose 248 H POC Glucose 292 H Hemoglobin A1c Ferritin Lactate Dehydrogenase Total Creatine Kinase C-Reactive Protein Albumin 2.8 L Urine Creatinine Coronavirus (PCR) 06/03/20 06/03/20 06/03/20 05:20 11:40 13:06 WBC RBC RDW Lymph % (Auto) Lymph # [place] # Seg Neutrophils % Seg Neuts % (Manual) Lymphocytes % (Manual) Seg Neutrophils # Seg Neutrophils # Man Lymphocytes # (Manual) Monocytes # (Manual) PT INR D-Dimer Sodium Potassium Chloride Carbon Dioxide BUN Creatinine Glucose POC Glucose 208 H 180 H 167 H Hemoglobin A1c Ferritin Lactate Dehydrogenase Total Creatine Kinase C-Reactive Protein Albumin Urine Creatinine Coronavirus (PCR) 06/03/20 06/04/20 06/04/20 16:58 00:07 04:17 WBC 20.8 H RBC 5.20 H RDW 15.7 H Lymph % (Auto) Lymph # [place] # Seg Neutrophils % Seg Neuts % (Manual) 91.0 H Lymphocytes % (Manual) 4.0 L Seg Neutrophils # Seg Neutrophils # Man 18.9 H Lymphocytes # (Manual) 0.8 L Monocytes # (Manual) 1.0 H PT INR D-Dimer Sodium Potassium Chloride Carbon Dioxide BUN Creatinine Glucose POC Glucose 152 H 206 H Hemoglobin A1c Ferritin Lactate Dehydrogenase Total Creatine Kinase C-Reactive Protein Albumin Urine Creatinine Coronavirus (PCR) 06/04/20 06/04/20 06/04/20 04:17 05:35 11:08 WBC RBC RDW Lymph % (Auto) Lymph # [place] # Seg Neutrophils % Seg Neuts % (Manual) Lymphocytes % (Manual) Seg Neutrophils # Seg Neutrophils # Man Lymphocytes # (Manual) Monocytes # (Manual) PT INR D-Dimer Sodium 135 L Potassium 5.1 H Chloride 97.8 L Carbon Dioxide 20 L BUN 56 H Creatinine 3.1 H Glucose 178 H POC Glucose 166 H 159 H Hemoglobin A1c Ferritin Lactate Dehydrogenase Total Creatine Kinase C-Reactive Protein Albumin 3.0 L Urine Creatinine Coronavirus (PCR) 06/04/20 06/05/20 06/05/20 18:06 00:22 04:56 WBC 20.2 H RBC RDW 15.6 H Lymph % (Auto) 4.7 L Lymph # 0.9 L [place] # 1.0 H Seg Neutrophils % Seg Neuts % (Manual) Lymphocytes % (Manual) Seg Neutrophils # 18.2 H Seg Neutrophils # Man Lymphocytes # (Manual) Monocytes # (Manual) PT INR D-Dimer Sodium Potassium Chloride Carbon Dioxide BUN Creatinine Glucose POC Glucose 190 H 234 H Hemoglobin A1c Ferritin Lactate Dehydrogenase Total Creatine Kinase C-Reactive Protein Albumin Urine Creatinine Coronavirus (PCR) 06/05/20 06/05/20 06/05/20 04:56 05:43 09:27 WBC RBC RDW Lymph % (Auto) Lymph # [place] # Seg Neutrophils % Seg Neuts % (Manual) Lymphocytes % (Manual) Seg Neutrophils # Seg Neutrophils # Man Lymphocytes # (Manual) Monocytes # (Manual) PT INR D-Dimer Sodium Potassium Chloride Carbon Dioxide 21 L BUN 63 H Creatinine 3.0 H Glucose 170 H POC Glucose 156 H 106 H Hemoglobin A1c Ferritin Lactate Dehydrogenase Total Creatine Kinase C-Reactive Protein Albumin 3.0 L Urine Creatinine Coronavirus (PCR) 06/05/20 06/05/20 06/06/20 15:50 23:36 10:31 WBC 18.3 H RBC RDW 15.6 H Lymph % (Auto) Lymph # [place] # Seg Neutrophils % Seg Neuts % (Manual) 90.0 H Lymphocytes % (Manual) 6.0 L Seg Neutrophils # Seg Neutrophils # Man 16.5 H Lymphocytes # (Manual) 1.1 L Monocytes # (Manual) PT INR D-Dimer Sodium Potassium Chloride Carbon Dioxide BUN Creatinine Glucose POC Glucose 197 H 193 H Hemoglobin A1c Ferritin Lactate Dehydrogenase Total Creatine Kinase C-Reactive Protein Albumin Urine Creatinine Coronavirus (PCR) 06/06/20 06/06/20 06/06/20 10:31 12:34 17:34 WBC RBC RDW Lymph % (Auto) Lymph # [place] # Seg Neutrophils % Seg Neuts % (Manual) Lymphocytes % (Manual) Seg Neutrophils # Seg Neutrophils # Man Lymphocytes # (Manual) Monocytes # (Manual) PT INR D-Dimer Sodium Potassium Chloride Carbon Dioxide BUN 65 H Creatinine 2.7 H Glucose 61 L POC Glucose 50 L 117 H Hemoglobin A1c Ferritin Lactate Dehydrogenase Total Creatine Kinase C-Reactive Protein Albumin Urine Creatinine Coronavirus (PCR) 06/07/20 06/07/20 06/07/20 04:40 04:40 06:07 WBC 16.3 H RBC RDW 15.6 H Lymph % (Auto) 4.9 L Lymph # 0.8 L [place] # 0.9 H Seg Neutrophils % 89.3 H Seg Neuts % (Manual) Lymphocytes % (Manual) Seg Neutrophils # 14.6 H Seg Neutrophils # Man Lymphocytes # (Manual) Monocytes # (Manual) PT INR D-Dimer Sodium Potassium 5.1 H D Chloride Carbon Dioxide BUN 67 H Creatinine 2.6 H Glucose 52 L POC Glucose 45 L Hemoglobin A1c Ferritin Lactate Dehydrogenase Total Creatine Kinase C-Reactive Protein Albumin Urine Creatinine Coronavirus (PCR)
[2020-06-07] MEDS ORDERED: SODIUM POLYSTYRENE 15 GM/60 ML ORAL LIQD PO ONE (15:13)
--- NOTE | 2020-06-07 16:24 | Progress Note ---
Assessment and Plan Assessment and plan: 54 year old male presenting with shortness of breath, with hypoxia on admission, saturation in the low 80s. Here, his chest x-ray showed bilateral infiltrates and COVID-19 test was positive. He was admitted to the hospital. Patient was started on steroids and ID and pulmonology were consulted. 06/02: Continue current management. Patient on high flow. If can tolerate prone recommend prone position during hours of sleep. 06/03: Continue supportive care. Overall prognosis is guarded. Will discuss proceed with obtaining consent for convalescent plasma. Poor prognosis considering COVID-19 and complicated by renal failure. 06/04: Continue current therapy consent obtained for convalescent plasma. Will discuss with laboratory to obtain the plasma. 06/05: Continue supportive care. Poor prognosis. Patient will like to think about plasma therapy and not ready to sign the consent now. 06/06: Patient remains on high flow with hypoxia persistent despite 100%. Still wants to think about the convalescent plasma therapy. Continue current support with pulmonary assistance. Mild improvement in pulmonary status still not a candidate for Remdesivir. Will obtain nephrology consultation to assist in management 06/07. Patient seen on BiPAP today. Nephrology consulted for impaired renal function. Problems Acute Hypoxic Respiratory failure 2019 novel sampson virus Pneumonia Bilateral penumonia KEITH WITH VASOMOTOR NEPHROPATHY ON CKD Stage 3 HTN DM with hyperglycemia Plan Continue support care Maintain on BiPAP and high flow oxygen if necessary. Prone positioning as needed if able to tolerate. High risk of intubation given hypoxia Continue steroids Remdesivir precluded due to renal function Continue antibiotics Patient refuses convalescent plasma at this time. He will make up his mind to let us know. Episode of hypoglycemia noted overnight. Monitor blood glucose and adjust insulin as needed ID, pulmonology and nephrology following Aspiration precautions DVT/GI prophy Plan discussed with the patient The high probability of a clinically significant, sudden or life threatening de terioration of the [pulmonary] system(s) required my full and direct attention, intervention and personal management. The aggregate critical care time was [35] minutes. This time is in addition to time spent performing reported procedures but includes the following: [x] Data Review and interpretation [x] Patient assessment and monitoring of vital signs [x] Documentation [x] Medication orders and management History Interval history: Patient seen and examined on BIPAP. Not in distress. His rate maintained in the high teens. Hospitalist Physical - Constitutional Vitals: Temp Pulse Resp BP Pulse Ox 97.8 F 85 19 113/57 94 06/07/20 12:00 06/07/20 15:00 06/07/20 15:00 06/07/20 15:00 06/07/20 15:00 HEART Score - HEART Score Troponin: Troponin T 0.021 ng/mL (0.00-0.029) 05/31/20 15:23 Results - Labs CBC & Chem 7: 06/07/20 04:40 06/07/20 04:40 Labs: Laboratory Last Values WBC 16.3 K/mm3 (4.5-11.0) H 06/07/20 04:40 RBC 4.95 M/mm3 (3.65-5.03) 06/07/20 04:40 Hgb 14.6 gm/dl (11.8-15.2) 06/07/20 04:40 Hct 43.0 % (35.5-45.6) 06/07/20 04:40 MCV 87 fl (84-94) 06/07/20 04:40 MCH 29 pg (28-32) 06/07/20 04:40 MCHC 34 % (32-34) 06/07/20 04:40 RDW 15.6 % (13.2-15.2) H 06/07/20 04:40 Plt Count 305 K/mm3 (140-440) 06/07/20 04:40 Lymph % (Auto) 4.9 % (13.4-35.0) L 06/07/20 04:40 [place] % (Auto) 5.6 % (0.0-7.3) 06/07/20 04:40 Eos % (Auto) 0.0 % (0.0-4.3) 06/07/20 04:40 Baso % (Auto) 0.2 % (0.0-1.8) 06/07/20 04:40 Lymph # 0.8 K/mm3 (1.2-5.4) L 06/07/20 04:40 [place] # 0.9 K/mm3 (0.0-0.8) H 06/07/20 04:40 Eos # 0.0 K/mm3 (0.0-0.4) 06/07/20 04:40 Baso # 0.0 K/mm3 (0.0-0.1) 06/07/20 04:40 Add Manual Diff Complete 06/06/20 10:31 Total Counted 100 06/06/20 10:31 Seg Neutrophils % 89.3 % (40.0-70.0) H 06/07/20 04:40 Seg Neuts % (Manual) 90.0 % (40.0-70.0) H 06/06/20 10:31 Band Neutrophils % 0 % 06/06/20 10:31 Lymphocytes % (Manual) 6.0 % (13.4-35.0) L 06/06/20 10:31 Reactive Lymphs % (Man) 0 % 06/06/20 10:31 Monocytes % (Manual) 4.0 % (0.0-7.3) 06/06/20 10:31 Eosinophils % (Manual) 0 % (0.0-4.3) 06/06/20 10:31 Basophils % (Manual) 0 % (0.0-1.8) 06/06/20 10:31 Metamyelocytes % 0 % 06/06/20 10:31 Myelocytes % 0 % 06/06/20 10:31 Promyelocytes % 0 % 06/06/20 10:31 Blast Cells % 0 % 06/06/20 10:31 Nucleated RBC % Not Reportable 06/06/20 10:31 Seg Neutrophils # 14.6 K/mm3 (1.8-7.7) H 06/07/20 04:40 Seg Neutrophils # Man 16.5 K/mm3 (1.8-7.7) H 06/06/20 10:31 Band Neutrophils # 0.0 K/mm3 06/06/20 10:31 Lymphocytes # (Manual) 1.1 K/mm3 (1.2-5.4) L 06/06/20 10:31 Abs React Lymphs (Man) 0.0 K/mm3 06/06/20 10:31 Monocytes # (Manual) 0.7 K/mm3 (0.0-0.8) 06/06/20 10:31 Eosinophils # (Manual) 0.0 K/mm3 (0.0-0.4) 06/06/20 10:31 Basophils # (Manual) 0.0 K/mm3 (0.0-0.1) 06/06/20 10:31 Metamyelocytes # 0.0 K/mm3 06/06/20 10:31 Myelocytes # 0.0 K/mm3 06/06/20 10:31 Promyelocytes # 0.0 K/mm3 06/06/20 10:31 Blast Cells # 0.0 K/mm3 06/06/20 10:31 WBC Morphology Not Reportable 06/06/20 10:31 Hypersegmented Neuts Not Reportable 06/06/20 10:31 Hyposegmented Neuts Not Reportable 06/06/20 10:31 Hypogranular Neuts Not Reportable 06/06/20 10:31 Smudge Cells Not Reportable 06/06/20 10:31 Toxic Granulation Not Reportable 06/06/20 10:31 Toxic Vacuolation Not Reportable 06/06/20 10:31 Dohle Bodies Not Reportable 06/06/20 10:31 Pelger-Huet Anomaly Not Reportable 06/06/20 10:31 Edwige Rods Not Reportable 06/06/20 10:31 Platelet Estimate Consistent w auto 06/06/20 10:31 Clumped Platelets Not Reportable 06/06/20 10:31 Plt Clumps, EDTA Not Reportable 06/06/20 10:31 Large Platelets Not Reportable 06/06/20 10:31 Giant Platelets Not Reportable 06/06/20 10:31 Platelet Satelliting Not Reportable 06/06/20 10:31 Plt Morphology Comment Not Reportable 06/06/20 10:31 RBC Morphology Not Reportable 06/06/20 10:31 Dimorphic RBCs Not Reportable 06/06/20 10:31 Polychromasia Not Reportable 06/06/20 10:31 Hypochromasia Not Reportable 06/06/20 10:31 Poikilocytosis Not Reportable 06/06/20 10:31 Anisocytosis 1+ 06/06/20 10:31 Microcytosis Not Reportable 06/06/20 10:31 Macrocytosis Not Reportable 06/06/20 10:31 Spherocytes Not Reportable 06/06/20 10:31 Pappenheimer Bodies Not Reportable 06/06/20 10:31 Sickle Cells Not Reportable 06/06/20 10:31 Target Cells Not Reportable 06/06/20 10:31 Tear Drop Cells Not Reportable 06/06/20 10:31 Ovalocytes Not Reportable 06/06/20 10:31 Helmet Cells Not Reportable 06/06/20 10:31 [place] Bodies Not Reportable 06/06/20 10:31 [place] Rings Not Reportable 06/06/20 10:31 Mary Cells Not Reportable 06/06/20 10:31 Bite Cells Not Reportable 06/06/20 10:31 Crenated Cell Not Reportable 06/06/20 10:31 Elliptocytes Not Reportable 06/06/20 10:31 Acanthocytes (Spur) Not Reportable 06/06/20 10:31 Rouleaux Not Reportable 06/06/20 10:31 Hemoglobin C Crystals Not Reportable 06/06/20 10:31 Schistocytes Not Reportable 06/06/20 10:31 Malaria parasites Not Reportable 06/06/20 10:31 [place] Bodies Not Reportable 06/06/20 10:31 Hem Pathologist Commnt No 06/06/20 10:31 PT 11.5 Sec. (12.2-14.9) L 05/31/20 15:23 INR 0.83 (0.87-1.13) L 05/31/20 15:23 D-Dimer 738.85 ng/mlDDU (0-234) H 05/31/20 16:49 Sodium 143 mmol/L (137-145) 06/07/20 04:40 Potassium 5.1 mmol/L (3.6-5.0) H D 06/07/20 04:40 Chloride 103.7 mmol/L (98-107) 06/07/20 04:40 Carbon Dioxide 24 mmol/L (22-30) 06/07/20 04:40 Anion Gap 20 mmol/L 06/07/20 04:40 BUN 67 mg/dL (9-20) H 06/07/20 04:40 Creatinine 2.6 mg/dL (0.8-1.3) H 06/07/20 04:40 Estimated GFR 31 ml/min 06/07/20 04:40 BUN/Creatinine Ratio 26 % 06/07/20 04:40 Glucose 52 mg/dL (75-100) L 06/07/20 04:40 POC Glucose 192 (70-105) H 06/07/20 12:26 Hemoglobin A1c 8.5 % (4-6) H 05/31/20 16:49 Calcium 8.9 mg/dL (8.4-10.2) 06/07/20 04:40 Magnesium 2.20 mg/dL (1.7-2.3) 05/31/20 15:23 Ferritin 599.0 ng/mL (30.0-300.0) H 05/31/20 16:49 Total Bilirubin 0.40 mg/dL (0.1-1.2) 06/05/20 04:56 AST 18 units/L (5-40) 06/05/20 04:56 ALT 23 units/L (7-56) 06/05/20 04:56 Alkaline Phosphatase 93 units/L (35-129) 06/05/20 04:56 Lactate Dehydrogenase 409 units/L (91-180) H 05/31/20 16:49 Total Creatine Kinase 325 units/L (55-170) H 05/31/20 15:23 Troponin T 0.021 ng/mL (0.00-0.029) 05/31/20 15:23 C-Reactive Protein 14.00 mg/dL (0.00-1.30) H 05/31/20 16:49 NT-Pro-B Natriuret Pep 111.3 pg/mL (0-900) 06/01/20 13:41 Total Protein 7.0 g/dL (6.3-8.2) 06/05/20 04:56 Albumin 3.0 g/dL (3.9-5) L 06/05/20 04:56 Albumin/Globulin Ratio 0.8 % 06/05/20 04:56 Procalcitonin 0.37 ng/mL (<0.15) 06/05/20 05:01 Urine Color Yellow (Yellow) 06/01/20 Unknown Urine Turbidity Clear (Clear) 06/01/20 Unknown Urine pH 5.0 (5.0-7.0) 06/01/20 Unknown Ur Specific [place] 1.018 (1.003-1.030) 06/01/20 Unknown Urine Protein >500 mg/dL (Negative) 06/01/20 Unknown Urine Glucose (UA) >=500 mg/dL (Negative) 06/01/20 Unknown Urine Ketones Tr mg/dL (Negative) 06/01/20 Unknown Urine Blood Mod (Negative) 06/01/20 Unknown Urine Nitrite Neg (Negative) 06/01/20 Unknown Urine Bilirubin Neg (Negative) 06/01/20 Unknown Urine Urobilinogen < 2.0 mg/dL (<2.0) 06/01/20 Unknown Ur Leukocyte Esterase Neg (Negative) 06/01/20 Unknown Urine WBC (Auto) 4.0 /HPF (0.0-6.0) 06/01/20 Unknown Urine RBC (Auto) 9.0 /HPF (0.0-6.0) 06/01/20 Unknown U Epithel Cells (Auto) 1.0 /HPF (0-13.0) 06/01/20 Unknown Urine Mucus Few /HPF 06/01/20 Unknown Urine Eosinophils None seen (None Seen) 06/01/20 Unknown Urine Creatinine 161.6 mg/dL (0.1-20.0) H 06/01/20 Unknown Urine Sodium 47 mmol/L 06/01/20 Unknown Proteinase 3 (PR3) Ab <1.0 AI (<1.0) 06/03/20 13:17 Myeloperoxidase Ab <1.0 AI (<1.0) 06/03/20 13:17 Coronavirus (PCR) Positive (Negative) A 06/01/20 Unknown Hepatitis A IgM Ab Non-reactive (NonReactive) 06/03/20 10:39 Hep Bs Antigen Non-reactive (Negative) 06/03/20 10:39 Hep B Core IgM Ab Non-reactive (NonReactive) 06/03/20 10:39 Hepatitis C Antibody Non-reactive (NonReactive) 06/03/20 10:39 Hess/IV: Voiding Method Urinal IV Catheter Type [Right INT / Saline Lock Antecubital] Active Medications - Current Medications Current Medications: Generic Name Dose Route Start Last Admin Trade Name Freq PRN Reason Stop Dose Admin Acetaminophen 650 mg 05/31/20 15:49 Tylenol PO Q6H PRN Pain MILD(1-3)/Fever >100.5/LEBRON Albuterol 2.5 mg 05/31/20 15:49 Proventil IH Q3HRT PRN Shortness Of Breath Amlodipine Besylate 10 mg 06/01/20 10:00 06/07/20 10:04 Amlodipine PO 10 mg DAILY CHERI Administration Atorvastatin Calcium 20 mg 05/31/20 22:00 06/06/20 22:56 Lipitor PO Not Given QHS CHERI Bisacodyl 10 mg 05/31/20 15:57 Dulcolax IA QDAY PRN Constipation unrelieved by MOM Chlorpromazine HCl 10 mg 05/31/20 15:57 Thorazine PO Q6H PRN Hiccups Dexamethasone 6 mg 06/01/20 10:00 06/07/20 10:15 Decadron PO 06/11/20 09:59 6 mg DAILY CHERI Administration Dextrose 50 ml 05/31/20 15:59 06/07/20 10:48 D50w (25gm) Syringe IV 20 ml Q30MIN PRN Administration Hypoglycemia Protocol Enoxaparin Sodium 30 mg 06/01/20 10:00 06/07/20 10:04 Enoxaparin SUB-Q 30 mg QDAY CHERI Administration Insulin Human Lispro 0 unit 05/31/20 16:00 06/07/20 10:48 Humalog SUB-Q Not Given Q6H [facility] Protocol Naloxone HCl 0.1 mg 05/31/20 15:49 Naloxone IV Q2MIN PRN Res Rate </= 8 or 02 SAT < 92% Ondansetron HCl 4 mg 05/31/20 15:57 Zofran IV Q8H PRN N/V unrelieved by Reglan Oxycodone/Acetaminophen 1 tab 05/31/20 15:49 06/03/20 00:57 Percocet 5/325 PO 1 tab Q6H PRN Administration Pain, Moderate (4-6) Sodium Chloride 10 ml 05/31/20 22:00 06/07/20 10:05 Sodium Chloride Flush Syringe 10 Ml IV 10 ml BID CHERI Administration Sodium Chloride 10 ml 05/31/20 15:49 Sodium Chloride Flush Syringe 10 Ml IV PRN PRN LINE FLUSH Tizanidine HCl 4 mg 05/31/20 15:57 Zanaflex PO Q8H PRN Muscle Spasm Nutrition/Malnutrition Assess - Dietary Evaluation Nutrition/Malnutrition Findings: Nutrition Notes Start: 06/01/20 10:42 Freq: Status: Active Protocol: Document 06/06/20 12:01 [email or web address] (Rec: 06/06/20 12:19 [email or web address]) Co-Sign 06/06/20 12:01 NHALL Nutrition Notes Initial or Follow up Assessment Current Diagnosis CKD(stage I-IV),Diabetes, Hypertension,Stroke Other Pertinent Diagnosis COVID-19 (+) Current Diet Renal Labs/Tests Reviewed Height 5 ft 9 in Weight 113 kg [place] Body Weight (kg) 72.72 BMI 36.8 Weight Status Obese Subjective/Other Information Unable to reach pt by phone with two attempts. Spoke to RN about intakes. Consumes 100% of meals when not on Bipap. Burn Absent Trauma Absent Minimum of two criteria No #1 Nutrition Diagnosis Altered nutrition-related laboratory values Etiology uncontrolled BG As Evidenced by Signs and Symptoms HgbA1c 8.5 Is patient on ventilator? No Is Patient Ambulatory and/or Out of Bed No REE-([facility]-confined to bed) 2344.476 Kcal/Kg value to use for calculation 16 Approximate Energy Requirements Using 1808 kcal/Kg Additional Notes Protein Needs (1-1.2g/kg AdBW) 92-110g Fluid: 1ml/kcal Nutrition Intervention Change Diet Order: Continue Goal #1 Improve BG control Goal #2 Continued Adequate oral intake Anticipated Discharge Needs: CHO Control diet Follow-Up By: 06/11/20 Additional Comments F/U for intakes and diet education needs
--- NOTE | 2020-06-07 18:06 | Progress Note ---
Assessment and Plan Cultures: Coronavirus PCR:positive Blood culture: no growth A/P: 54-year-old male with diabetes, CKD, prior CVA, obesity was admitted to the hospital with complaints of cough, shortness of breath along with fatigue and malaise: #Severe COVID pneumonia: CRP 14.0, LDH 409, ferritin 599, Ddimer 738. #Acute hypoxic respiratory failure: on high flow. #KEITH on CKD Recs: Continue IV/PO Dexamethasone 6 mg daily x 10 days Not a candidate for Remdesivir due to renal failure trend ferritin, LDH, d-dimer, CRP every 2-3 days for risk stratification and to assess disease progression prophylactic anticoagulation based on d-dimer Repeat procalcitonin similar to previous, as such do not recommend any new antibiotic. Darby Redding MD [facility] M: [phone] O: [phone] F: [phone] Subjective Date of service: 06/07/20 Principal diagnosis: keith Interval history: Afebrile, elevated white count of 16. On BiPAP. Objective - Exam Narrative Exam: Physical exam deferred due to PPE conservation strategy. Please refer to primary team's note. - Constitutional Vitals: Vital Signs Temp Pulse Resp BP Pulse Ox 98.1 F 81 16 152/73 87 06/07/20 16:00 06/07/20 17:30 06/07/20 17:30 06/07/20 17:30 06/07/20 17:30 Temperature -Last 24 Hours Temperature 98.1 F Temperature 97.8 F Temperature 97.6 F Temperature 99.4 F Temperature 99 F Temperature 97.8 F - Labs CBC & Chem 7: 06/07/20 04:40 06/07/20 04:40 Labs: Abnormal lab results 06/03/20 06/03/20 06/07/20 Range/Units 10:39 10:39 04:40 WBC 16.3 H (4.5-11.0) K/mm3 RDW 15.6 H (13.2-15.2) % Lymph % (Auto) 4.9 L (13.4-35.0) % Lymph # 0.8 L (1.2-5.4) K/mm3 [place] # 0.9 H (0.0-0.8) K/mm3 Seg Neutrophils % 89.3 H (40.0-70.0) % Seg Neutrophils # 14.6 H (1.8-7.7) K/mm3 Potassium (3.6-5.0) mmol/L BUN (9-20) mg/dL Creatinine (0.8-1.3) mg/dL Glucose (75-100) mg/dL POC Glucose (70-105) Complement C3 223 H (82-185) mg/dL Complement C4 64 H (15-53) mg/dL 06/07/20 06/07/20 06/07/20 Range/Units 04:40 06:07 10:34 WBC (4.5-11.0) K/mm3 RDW (13.2-15.2) % Lymph % (Auto) (13.4-35.0) % Lymph # (1.2-5.4) K/mm3 [place] # (0.0-0.8) K/mm3 Seg Neutrophils % (40.0-70.0) % Seg Neutrophils # (1.8-7.7) K/mm3 Potassium 5.1 H D (3.6-5.0) mmol/L BUN 67 H (9-20) mg/dL Creatinine 2.6 H (0.8-1.3) mg/dL Glucose 52 L (75-100) mg/dL POC Glucose 45 L 57 L (70-105) Complement C3 (82-185) mg/dL Complement C4 (15-53) mg/dL 06/07/20 06/07/20 Range/Units 10:49 12:26 WBC (4.5-11.0) K/mm3 RDW (13.2-15.2) % Lymph % (Auto) (13.4-35.0) % Lymph # (1.2-5.4) K/mm3 [place] # (0.0-0.8) K/mm3 Seg Neutrophils % (40.0-70.0) % Seg Neutrophils # (1.8-7.7) K/mm3 Potassium (3.6-5.0) mmol/L BUN (9-20) mg/dL Creatinine (0.8-1.3) mg/dL Glucose (75-100) mg/dL POC Glucose 54 L 192 H (70-105) Complement C3 (82-185) mg/dL Complement C4 (15-53) mg/dL
[2020-06-08] MEDS: INSULIN LISPRO 100 UNIT/ML VIAL 3 mL SUB-Q SCH ×5 (00:43→23:44)
[2020-06-08 05:26] LABS: Basophils % (Auto) 0.2 % (0.0-1.8); Eosinophils % (Auto) 0.1 % (0.0-4.3); Hematocrit 42.2 % (35.5-45.6); Hemoglobin 14.4 gm/dl (11.8-15.2); Lymphocytes # (Auto) 0.9 K/mm3 (1.2-5.4); Lymphocytes % (Auto) 4.6 % (13.4-35.0); Mean Corpuscular HGB Conc 34 % (32-34); Mean Corpuscular Volume 87 fl (84-94); Monocytes % (Auto) 5.4 % (0.0-7.3); Platelet Count 276 K/mm3 (140-440); Red Blood Count 4.85 M/mm3 (3.65-5.03); Red Cell Distribution Width 15.6 % (13.2-15.2)
[2020-06-08 05:34] LABS: Calcium 8.6 mg/dL (8.4-10.2)
[2020-06-08 07:10] LABS: Albumin 2.6 g/dL (3.8-4.8); Gamma Globulin 1.2 g/dL (0.8-1.7)
--- NOTE | 2020-06-08 08:38 | Progress Note ---
Assessment and Plan 1. Acute kidney injury: KEITH superimposed on CKD satge 3 in the setting of severe COVID infection. Renal US pending. UA results noted. Monitor renal function. Creatinine level is same as yesterday. Avoid nephrotoxic agents. Meds dosage based on GFR. Monitor for DES[employer] SALES CONSULTANT needs. No acute indication for DES[employer] AND SALES CONSULTANT today. 2. FEN: Hyperkalemia, improved, monitor. Metabolic acidosis, improved, monitor. Monitor lytes and volume status. 3. Acute hypoxic respiratory failure: 2/2 COVID-19 PNA. On Decadron. On HFNC O2 / BIPAP. Followed by Pulmonary. 4. Bilateral COVID-19 PNA: Followed by ID. 5. DM with hyperglycemia: Accu-Check, sliding scale coverage, ADA diet. 6. Hypertension: Monitor BP. - Subjective: Patient was seen and examined from outside the [facility]. In IMCU. D/w RN. - General Appearance General appearance: well-developed, well-nourished, appears stated age, no distress, on HFNC O2 HEENT: ATNC Neurologic: sleeping Subjective Date of service: 06/08/20 Principal diagnosis: keith Objective - Vital Signs Vital signs: Vital Signs - 12hr 06/07/20 06/07/20 06/07/20 21:00 21:30 22:00 Temperature Pulse Rate 97 H 92 H 98 H Pulse Rate [ From Monitor] Respiratory 27 H 34 H 32 H Rate Blood Pressure 111/42 111/42 123/48 O2 Sat by Pulse 91 88 92 Oximetry 06/07/20 06/07/20 06/07/20 22:30 23:00 23:30 Temperature Pulse Rate 93 H 95 H 90 Pulse Rate [ From Monitor] Respiratory 11 L 17 25 H Rate Blood Pressure 111/42 152/87 123/48 O2 Sat by Pulse 86 84 89 Oximetry 06/07/20 06/08/20 06/08/20 23:35 00:00 00:04 Temperature 98.4 F Pulse Rate 93 H 88 Pulse Rate [ 94 H From Monitor] Respiratory 23 31 H Rate Blood Pressure 141/84 141/84 O2 Sat by Pulse 89 96 Oximetry 06/08/20 06/08/20 06/08/20 00:30 01:00 01:30 Temperature Pulse Rate 84 87 82 Pulse Rate [ From Monitor] Respiratory 21 36 H 38 H Rate Blood Pressure 141/84 149/86 149/86 O2 Sat by Pulse 97 99 98 Oximetry 06/08/20 06/08/20 06/08/20 02:00 02:30 03:00 Temperature Pulse Rate 88 83 82 Pulse Rate [ From Monitor] Respiratory 34 H 11 L 40 H Rate Blood Pressure 166/93 155/89 O2 Sat by Pulse 97 96 96 Oximetry 06/08/20 06/08/20 06/08/20 03:25 03:30 03:41 Temperature 98.8 F Pulse Rate 86 94 H Pulse Rate [ From Monitor] Respiratory 38 H Rate Blood Pressure 155/89 155/89 O2 Sat by Pulse 94 95 Oximetry 06/08/20 06/08/20 06/08/20 04:00 04:30 05:00 Temperature Pulse Rate 83 82 87 Pulse Rate [ 94 H From Monitor] Respiratory 16 18 19 Rate Blood Pressure 151/88 151/88 154/94 O2 Sat by Pulse 95 96 97 Oximetry 06/08/20 06/08/20 06/08/20 05:30 06:00 07:54 Temperature Pulse Rate 87 90 Pulse Rate [ From Monitor] Respiratory 42 H 11 L Rate Blood Pressure 154/94 154/94 O2 Sat by Pulse 96 96 100 Oximetry - Lab 06/08/20 04:52 06/08/20 04:52 Most recent lab results Calcium 8.6 mg/dL (8.4-10.2) 06/08/20 04:52 Magnesium 2.20 mg/dL (1.7-2.3) 05/31/20 15:23 Urine Creatinine 161.6 mg/dL (0.1-20.0) H 06/01/20 Unknown Urine Sodium 47 mmol/L 06/01/20 Unknown Medications & Allergies - Medications Allergies/Adverse Reactions: Allergies lisinopril Allergy (Verified 05/31/20 13:03) Angioedema Penicillins Allergy (Verified 05/31/20 13:03) Hives Home Medications: Home Medications Medication Instructions Recorded Confirmed Last Taken Type Acetaminophen [Acetaminophen TAB] 650 mg PO Q4H PRN #30 tablet 02/15/17 Unknown Rx AtorvaSTATin [Lipitor] 20 mg PO QHS tablet 02/15/17 Unknown Rx Cipro/Dexameth 0.3/0.1% [Ciprodex 4 drops AU BID bottle 02/15/17 Unknown Rx OTIC] Detemir (Nf) [Levemir (Nf)] 100 units SUB-Q QHS units 02/15/17 Unknown Rx Dextrose 50% in Water [D50W (25GM) 50 ml IV PRN PRN #30 syringe 02/15/17 Unknown Rx Syringe] Enoxaparin 40 mg SUB-Q QDAY syringe 02/15/17 Unknown Rx Lipase/Protease/Amylase [Pancreaze 1 each FEEDTUBE PRN PRN #30 capsule 02/15/[address],500 Unit] Metoprolol [Lopressor TAB] 25 mg PO BID tablet 02/15/17 Unknown Rx Metoprolol [Lopressor TAB] 25 mg PO BID #60 tablet 02/15/17 Unknown Rx Ondansetron [Zofran INJ] 4 mg IV Q8H PRN #30 vial 02/15/17 Unknown Rx Prednisone [predniSONE 5 mg (6-Day 5 mg PO .TAPER #1 tab.ds.pk 02/15/17 Unknown Rx Pack, 21 Tabs)] Simple Syrup 15 ml FEEDTUBE PRN PRN #30 02/15/17 Unknown Rx oral.liqd Simple Syrup 30 ml FEEDTUBE PRN PRN #30 02/15/17 Unknown Rx oral.liqd Sodium Bicarbonate 325 mg FEEDTUBE PRN PRN #30 tablet 02/15/17 Unknown Rx amLODIPine 10 mg PO DAILY tablet 02/15/17 Unknown Rx amLODIPine [Norvasc] 10 mg PO DAILY #30 tab 02/15/17 Unknown Rx bisacodyL [Dulcolax suppos] 10 mg [place] QDAY PRN #30 supp.rect 02/15/17 Unknown Rx chlorproMAZINE [Thorazine] 10 mg PO Q6H PRN #30 tablet 02/15/17 Unknown Rx dexAMETHasone [Decadron] 6 mg IV Q6HR vial 02/15/17 Unknown Rx hydrALAZINE [Apresoline INJ] 10 mg IV Q6HR PRN #30 vial 02/15/17 Unknown Rx oxyCODONE /ACETAMINOPHEN [Percocet 1 tab PO Q4H PRN #30 tablet 02/15/17 Unknown Rx 5/325 mg] oxyCODONE /ACETAMINOPHEN [Percocet 1 tab PO Q4HR #30 tab 02/15/17 Unknown Rx 5/325] tiZANidine [Zanaflex 4mg TAB] 4 mg PO Q8H PRN #30 tablet 02/15/17 Unknown Rx Permethrin 5% [Acticin 5% CREAM] 1 applicatio TP ONCE #1 tube 06/11/17 Unknown Rx Azithromycin [Zithromax Z-BENJIE] 250 mg PO DAILY 1 Days tab 11/23/18 Unknown Rx Ondansetron [Zofran Odt] 4 mg PO Q8HR PRN #14 tab.rapdis 11/23/18 Unknown Rx traMADoL [Ultram 50 MG tab] 50 mg PO Q4HR PRN #14 tablet 11/23/18 Unknown Rx Active Medications: Generic Name Dose Route Start Last Admin Trade Name Freq PRN Reason Stop Dose Admin Acetaminophen 650 mg 05/31/20 15:49 Tylenol PO Q6H PRN Pain MILD(1-3)/Fever >100.5/LEBRON Albuterol 2.5 mg 05/31/20 15:49 Proventil IH Q3HRT PRN Shortness Of Breath Amlodipine Besylate 10 mg 06/01/20 10:00 06/07/20 10:04 Amlodipine PO 10 mg DAILY CHERI Administration Atorvastatin Calcium 20 mg 05/31/20 22:00 06/07/20 22:18 Lipitor PO 20 mg QHS CHERI Administration Bisacodyl 10 mg 05/31/20 15:57 Dulcolax [place] QDAY PRN Constipation unrelieved by MOM Chlorpromazine HCl 10 mg 05/31/20 15:57 Thorazine PO Q6H PRN Hiccups Dexamethasone 6 mg 06/01/20 10:00 06/07/20 10:15 Decadron PO 06/11/20 09:59 6 mg DAILY CHERI Administration Dextrose 50 ml 05/31/20 15:59 06/07/20 10:48 D50w (25gm) Syringe IV 20 ml Q30MIN PRN Administration Hypoglycemia Protocol Enoxaparin Sodium 30 mg 06/01/20 10:00 06/07/20 10:04 Enoxaparin SUB-Q 30 mg QDAY CHERI Administration Insulin Glargine 8 units 06/08/20 22:00 Lantus SUB-Q QHS CHERI Insulin Human Lispro 0 unit 05/31/20 16:00 06/08/20 06:19 Humalog SUB-Q 3 unit Q6H CHERI Administration Protocol Naloxone HCl 0.1 mg 05/31/20 15:49 Naloxone IV Q2MIN PRN Res Rate </= 8 or 02 SAT < 92% Ondansetron HCl 4 mg 05/31/20 15:57 Zofran IV Q8H PRN N/V unrelieved by Anna Oxycodone/Acetaminophen 1 tab 05/31/20 15:49 06/03/20 00:57 Percocet 5/325 PO 1 tab Q6H PRN Administration Pain, Moderate (4-6) Sodium Chloride 10 ml 05/31/20 22:00 06/07/20 22:18 Sodium Chloride Flush Syringe 10 Ml IV 10 ml BID [facility]I Administration Sodium Chloride 10 ml 05/31/20 15:49 Sodium Chloride Flush Syringe 10 Ml IV PRN PRN LINE FLUSH Tizanidine HCl 4 mg 05/31/20 15:57 Zanaflex PO Q8H PRN Muscle Spasm
[2020-06-08] MEDS: amLODIPine 10 MG TAB PO SCH (09:37)
[2020-06-08] MEDS: DEXAMETHASONE 4 MG TAB PO SCH (09:37)
[2020-06-08] MEDS: ENOXAPARIN 30 MG/0.3 ML INJ SUB-Q SCH (09:38)
--- NOTE | 2020-06-08 11:38 | Progress Note ---
Assessment and Plan 54 y/o male with acute respiratory failure, secondary to COVID 19 pneumonia and possibly acute renal failure 1. Wean FiO2 for sats >88%, have not been able to do this secondary to elevated oxygen requirements. 2. Agree with steroids as ordered by ID, unfortunately not a candidate for remdesivir given renal function 3. Patient to receive convalescent plasma. 4. Prone as much as tolerated during the day and sleep prone at night 5. Follow up renal recs, NO HD per them 6. overall prognosis is guarded High risk for intubation. Subjective Date of service: 06/08/20 Principal diagnosis: talia Interval history: Patient remained awake on high flow nasal cannula at 40 L. Used BiPAP last night Objective Vital Signs - 12hr 06/08/20 06/08/20 06/08/20 00:00 00:04 00:30 Temperature Pulse Rate 93 H 88 84 Pulse Rate [ 94 H From Monitor] Respiratory 23 31 H 21 Rate Blood Pressure 141/84 141/84 141/84 O2 Sat by Pulse 89 96 97 Oximetry 06/08/20 06/08/20 06/08/20 01:00 01:30 02:00 Temperature Pulse Rate 87 82 88 Pulse Rate [ From Monitor] Respiratory 36 H 38 H 34 H Rate Blood Pressure 149/86 149/86 166/93 O2 Sat by Pulse 99 98 97 Oximetry 06/08/20 06/08/20 06/08/20 02:30 03:00 03:25 Temperature Pulse Rate 83 82 86 Pulse Rate [ From Monitor] Respiratory 11 L 40 H 38 H Rate Blood Pressure 155/89 155/89 O2 Sat by Pulse 96 96 94 Oximetry 06/08/20 06/08/20 06/08/20 03:30 03:41 04:00 Temperature 98.8 F Pulse Rate 94 H 83 Pulse Rate [ 94 H From Monitor] Respiratory 16 Rate Blood Pressure 155/89 151/88 O2 Sat by Pulse 95 95 Oximetry 06/08/20 06/08/20 06/08/20 04:30 05:00 05:30 Temperature Pulse Rate 82 87 87 Pulse Rate [ From Monitor] Respiratory 18 19 42 H Rate Blood Pressure 151/88 154/94 154/94 O2 Sat by Pulse 96 97 96 Oximetry 06/08/20 06/08/20 06/08/20 06:00 06:30 07:00 Temperature Pulse Rate 90 95 H 101 H Pulse Rate [ From Monitor] Respiratory 11 L 14 21 Rate Blood Pressure 154/94 148/103 140/107 O2 Sat by Pulse 96 91 88 Oximetry 06/08/20 06/08/20 06/08/20 07:30 07:54 08:00 Temperature 98.3 F Pulse Rate 99 H 101 H Pulse Rate [ 90 From Monitor] Respiratory 26 H 25 H Rate Blood Pressure 140/107 140/72 O2 Sat by Pulse 99 100 89 Oximetry 06/08/20 06/08/20 06/08/20 08:30 09:00 09:30 Temperature Pulse Rate 106 H 102 H 101 H Pulse Rate [ From Monitor] Respiratory 26 H 33 H 31 H Rate Blood Pressure 140/72 156/99 156/99 O2 Sat by Pulse 75 L 94 89 Oximetry 06/08/20 06/08/20 06/08/20 09:37 10:00 10:30 Temperature Pulse Rate 108 H 99 H 100 H Pulse Rate [ From Monitor] Respiratory 34 H 36 H Rate Blood Pressure 156/99 164/101 164/101 O2 Sat by Pulse 92 93 Oximetry 06/08/20 11:00 Temperature Pulse Rate 101 H Pulse Rate [ From Monitor] Respiratory 14 Rate Blood Pressure 131/87 O2 Sat by Pulse 91 Oximetry Constitutional: no acute distress, lethargic, other (Morbidly obese) Eyes: non-icteric ENT: oropharynx moist, other (Crowded oropharynx) Neck: supple Ascultation: Bilateral: diminished breath sounds Cardiovascular: regular rate and rhythm Gastrointestinal: normoactive bowel sounds, non-distended, other (Obese) Integumentary: normal Extremities: no cyanosis Neurologic: non-focal exam CBC and BMP: 06/08/20 04:52 06/08/20 04:52 ABG, PT/INR, D-dimer: PT/INR, D-dimer PT 11.5 Sec. (12.2-14.9) L 05/31/20 15:23 INR 0.83 (0.87-1.13) L 05/31/20 15:23 D-Dimer 738.85 ng/mlDDU (0-234) H 05/31/20 16:49 Abnormal lab findings: Abnormal Labs 05/31/20 05/31/20 05/31/20 15:23 15:23 15:23 WBC RBC RDW Lymph % (Auto) Lymph # [place] # Seg Neutrophils % Seg Neuts % (Manual) Lymphocytes % (Manual) Seg Neutrophils # Seg Neutrophils # Man Lymphocytes # (Manual) Monocytes # (Manual) PT INR D-Dimer Sodium Potassium Chloride Carbon Dioxide BUN Creatinine Glucose 280 H POC Glucose Hemoglobin A1c Ferritin 583.4 H Lactate Dehydrogenase 392 H Total Creatine Kinase 325 H C-Reactive Protein 14.30 H Albumin Jxcud-8-Eapwunmmp Ztcjr-8-Jzxlaouyq Beta Globulins PEP Interpretation Urine Creatinine Complement C3 Complement C4 Coronavirus (PCR) 05/31/20 05/31/20 05/31/20 15:23 15:23 15:23 WBC RBC RDW 15.7 H Lymph % (Auto) 12.9 L Lymph # 1.0 L [place] # Seg Neutrophils % 81.7 H Seg Neuts % (Manual) Lymphocytes % (Manual) Seg Neutrophils # Seg Neutrophils # Man Lymphocytes # (Manual) Monocytes # (Manual) PT 11.5 L INR 0.83 L D-Dimer Sodium 134 L Potassium Chloride 97.2 L Carbon Dioxide BUN 28 H Creatinine 3.0 H Glucose 279 H POC Glucose Hemoglobin A1c Ferritin Lactate Dehydrogenase Total Creatine Kinase C-Reactive Protein Albumin 3.3 L Koutj-0-Jajtzwqja Uckcx-8-Qelsbnrrp Beta Globulins PEP Interpretation Urine Creatinine Complement C3 Complement C4 Coronavirus (PCR) 05/31/20 05/31/20 05/31/20 16:47 16:49 16:49 WBC RBC RDW Lymph % (Auto) Lymph # [place] # Seg Neutrophils % Seg Neuts % (Manual) Lymphocytes % (Manual) Seg Neutrophils # Seg Neutrophils # Man Lymphocytes # (Manual) Monocytes # (Manual) PT INR D-Dimer 738.85 H Sodium Potassium Chloride Carbon Dioxide BUN Creatinine Glucose 258 H POC Glucose 239 H Hemoglobin A1c Ferritin Lactate Dehydrogenase 409 H Total Creatine Kinase C-Reactive Protein 14.00 H Albumin Eriic-4-Ywlzwzskg Oxhuv-0-Zuljvyesq Beta Globulins PEP Interpretation Urine Creatinine Complement C3 Complement C4 Coronavirus (PCR) 05/31/20 05/31/20 06/01/20 16:49 16:49 10:15 WBC RBC RDW Lymph % (Auto) Lymph # [place] # Seg Neutrophils % Seg Neuts % (Manual) Lymphocytes % (Manual) Seg Neutrophils # Seg Neutrophils # Man Lymphocytes # (Manual) Monocytes # (Manual) PT INR D-Dimer Sodium Potassium Chloride Carbon Dioxide BUN Creatinine Glucose POC Glucose 277 H Hemoglobin A1c 8.5 H Ferritin 599.0 H Lactate Dehydrogenase Total Creatine Kinase C-Reactive Protein Albumin Lmqve-6-Kerjaqyye Ykncr-4-Wtbqponte Beta Globulins PEP Interpretation Urine Creatinine Complement C3 Complement C4 Coronavirus (PCR) 06/01/20 06/01/20 06/01/20 13:41 13:41 16:10 WBC RBC RDW 15.3 H Lymph % (Auto) 8.4 L Lymph # 0.9 L [place] # Seg Neutrophils % 86.9 H Seg Neuts % (Manual) Lymphocytes % (Manual) Seg Neutrophils # 9.3 H Seg Neutrophils # Man Lymphocytes # (Manual) Monocytes # (Manual) PT INR D-Dimer Sodium 136 L Potassium 5.5 H Chloride Carbon Dioxide 20 L BUN 42 H Creatinine 3.5 H Glucose 278 H POC Glucose 372 H Hemoglobin A1c Ferritin Lactate Dehydrogenase Total Creatine Kinase C-Reactive Protein Albumin Zbbvk-3-Xcjuanhnw Dwneq-2-Wxadtgcsn Beta Globulins PEP Interpretation Urine Creatinine Complement C3 Complement C4 Coronavirus (PCR) 06/01/20 06/01/20 06/01/20 23:12 Unknown Unknown WBC RBC RDW Lymph % (Auto) Lymph # [place] # Seg Neutrophils % Seg Neuts % (Manual) Lymphocytes % (Manual) Seg Neutrophils # Seg Neutrophils # Man Lymphocytes # (Manual) Monocytes # (Manual) PT INR D-Dimer Sodium Potassium Chloride Carbon Dioxide BUN Creatinine Glucose POC Glucose 398 H Hemoglobin A1c Ferritin Lactate Dehydrogenase Total Creatine Kinase C-Reactive Protein Albumin Veill-2-Wvappyrcy Rkdfy-4-Nlnhuivrh Beta Globulins PEP Interpretation Urine Creatinine 161.6 H Complement C3 Complement C4 Coronavirus (PCR) Positive A 06/02/20 06/02/20 06/02/20 04:55 04:55 05:33 WBC 14.7 H RBC RDW 15.4 H Lymph % (Auto) 7.1 L Lymph # 1.1 L [place] # Seg Neutrophils % 89.3 H Seg Neuts % (Manual) Lymphocytes % (Manual) Seg Neutrophils # 13.2 H Seg Neutrophils # Man Lymphocytes # (Manual) Monocytes # (Manual) PT INR D-Dimer Sodium 136 L Potassium Chloride 97.2 L Carbon Dioxide 21 L BUN 47 H Creatinine 3.5 H Glucose 244 H POC Glucose 262 H Hemoglobin A1c Ferritin Lactate Dehydrogenase Total Creatine Kinase C-Reactive Protein Albumin 3.2 L Yqffy-8-Ycykqbbvf Jlhuo-8-Jutomvhyv Beta Globulins PEP Interpretation Urine Creatinine Complement C3 Complement C4 Coronavirus (PCR) 06/02/20 06/02/20 06/02/20 10:55 16:49 22:15 WBC RBC RDW Lymph % (Auto) Lymph # [place] # Seg Neutrophils % Seg Neuts % (Manual) Lymphocytes % (Manual) Seg Neutrophils # Seg Neutrophils # Man Lymphocytes # (Manual) Monocytes # (Manual) PT INR D-Dimer Sodium Potassium Chloride Carbon Dioxide BUN Creatinine Glucose POC Glucose 160 H 214 H 292 H Hemoglobin A1c Ferritin Lactate Dehydrogenase Total Creatine Kinase C-Reactive Protein Albumin Nkwkk-9-Onqujfqzs Bxfuc-0-Zbvbubkrh Beta Globulins PEP Interpretation Urine Creatinine Complement C3 Complement C4 Coronavirus (PCR) 06/02/20 06/03/20 06/03/20 23:47 05:18 05:18 WBC 18.4 H RBC RDW 15.3 H Lymph % (Auto) Lymph # [place] # Seg Neutrophils % Seg Neuts % (Manual) 91.0 H Lymphocytes % (Manual) 8.0 L Seg Neutrophils # Seg Neutrophils # Man 16.7 H Lymphocytes # (Manual) Monocytes # (Manual) PT INR D-Dimer Sodium Potassium Chloride Carbon Dioxide 20 L BUN 50 H Creatinine 3.1 H Glucose 248 H POC Glucose 292 H Hemoglobin A1c Ferritin Lactate Dehydrogenase Total Creatine Kinase C-Reactive Protein Albumin 2.8 L Fmqcb-0-Mthicfbqf Zihaa-3-Ndkoxduyk Beta Globulins PEP Interpretation Urine Creatinine Complement C3 Complement C4 Coronavirus (PCR) 06/03/20 06/03/20 06/03/20 05:20 10:39 10:39 WBC RBC RDW Lymph % (Auto) Lymph # [place] # Seg Neutrophils % Seg Neuts % (Manual) Lymphocytes % (Manual) Seg Neutrophils # Seg Neutrophils # Man Lymphocytes # (Manual) Monocytes # (Manual) PT INR D-Dimer Sodium Potassium Chloride Carbon Dioxide BUN Creatinine Glucose POC Glucose 208 H Hemoglobin A1c Ferritin Lactate Dehydrogenase Total Creatine Kinase C-Reactive Protein Albumin Lcpgv-6-Jbpolpfxu Eukuk-9-Islxesyfe Beta Globulins PEP Interpretation Urine Creatinine Complement C3 223 H Complement C4 64 H Coronavirus (PCR) 06/03/20 06/03/20 06/03/20 11:40 13:06 16:58 WBC RBC RDW Lymph % (Auto) Lymph # [place] # Seg Neutrophils % Seg Neuts % (Manual) Lymphocytes % (Manual) Seg Neutrophils # Seg Neutrophils # Man Lymphocytes # (Manual) Monocytes # (Manual) PT INR D-Dimer Sodium Potassium Chloride Carbon Dioxide BUN Creatinine Glucose POC Glucose 180 H 167 H 152 H Hemoglobin A1c Ferritin Lactate Dehydrogenase Total Creatine Kinase C-Reactive Protein Albumin Ojfeu-9-Gienaervk Gpiuu-7-Tinnzaojl Beta Globulins PEP Interpretation Urine Creatinine Complement C3 Complement C4 Coronavirus (PCR) 06/04/20 06/04/20 06/04/20 00:07 04:17 04:17 WBC 20.8 H RBC 5.20 H RDW 15.7 H Lymph % (Auto) Lymph # [place] # Seg Neutrophils % Seg Neuts % (Manual) 91.0 H Lymphocytes % (Manual) 4.0 L Seg Neutrophils # Seg Neutrophils # Man 18.9 H Lymphocytes # (Manual) 0.8 L Monocytes # (Manual) 1.0 H PT INR D-Dimer Sodium 135 L Potassium 5.1 H Chloride 97.8 L Carbon Dioxide 20 L BUN 56 H Creatinine 3.1 H Glucose 178 H POC Glucose 206 H Hemoglobin A1c Ferritin Lactate Dehydrogenase Total Creatine Kinase C-Reactive Protein Albumin 3.0 L Rfsxu-3-Ewdrnhdcl Oknfc-0-Rzylkxula Beta Globulins PEP Interpretation Urine Creatinine Complement C3 Complement C4 Coronavirus (PCR) 06/04/20 06/04/20 06/04/20 04:17 05:35 11:08 WBC RBC RDW Lymph % (Auto) Lymph # [place] # Seg Neutrophils % Seg Neuts % (Manual) Lymphocytes % (Manual) Seg Neutrophils # Seg Neutrophils # Man Lymphocytes # (Manual) Monocytes # (Manual) PT INR D-Dimer Sodium Potassium Chloride Carbon Dioxide BUN Creatinine Glucose POC Glucose 166 H 159 H Hemoglobin A1c Ferritin Lactate Dehydrogenase Total Creatine Kinase C-Reactive Protein Albumin 2.6 L Rqjhz-2-Haibobbmt 0.5 H Tqtmf-3-Cniuxyocq 1.6 H Beta Globulins 0.6 H PEP Interpretation see below H Urine Creatinine Complement C3 Complement C4 Coronavirus (PCR) 06/04/20 06/05/20 06/05/20 18:06 00:22 04:56 WBC 20.2 H RBC RDW 15.6 H Lymph % (Auto) 4.7 L Lymph # 0.9 L [place] # 1.0 H Seg Neutrophils % Seg Neuts % (Manual) Lymphocytes % (Manual) Seg Neutrophils # 18.2 H Seg Neutrophils # Man Lymphocytes # (Manual) Monocytes # (Manual) PT INR D-Dimer Sodium Potassium Chloride Carbon Dioxide BUN Creatinine Glucose POC Glucose 190 H 234 H Hemoglobin A1c Ferritin Lactate Dehydrogenase Total Creatine Kinase C-Reactive Protein Albumin Apyli-2-Iiijswrvd Cmqbb-3-Kjmafkmdq Beta Globulins PEP Interpretation Urine Creatinine Complement C3 Complement C4 Coronavirus (PCR) 06/05/20 06/05/20 06/05/20 04:56 05:43 09:27 WBC RBC RDW Lymph % (Auto) Lymph # [place] # Seg Neutrophils % Seg Neuts % (Manual) Lymphocytes % (Manual) Seg Neutrophils # Seg Neutrophils # Man Lymphocytes # (Manual) Monocytes # (Manual) PT INR D-Dimer Sodium Potassium Chloride Carbon Dioxide 21 L BUN 63 H Creatinine 3.0 H Glucose 170 H POC Glucose 156 H 106 H Hemoglobin A1c Ferritin Lactate Dehydrogenase Total Creatine Kinase C-Reactive Protein Albumin 3.0 L Zlfhn-6-Gdllmhjaj Klgmh-4-Ttcuejocl Beta Globulins PEP Interpretation Urine Creatinine Complement C3 Complement C4 Coronavirus (PCR) 06/05/20 06/05/20 06/06/20 15:50 23:36 10:31 WBC 18.3 H RBC RDW 15.6 H Lymph % (Auto) Lymph # [place] # Seg Neutrophils % Seg Neuts % (Manual) 90.0 H Lymphocytes % (Manual) 6.0 L Seg Neutrophils # Seg Neutrophils # Man 16.5 H Lymphocytes # (Manual) 1.1 L Monocytes # (Manual) PT INR D-Dimer Sodium Potassium Chloride Carbon Dioxide BUN Creatinine Glucose POC Glucose 197 H 193 H Hemoglobin A1c Ferritin Lactate Dehydrogenase Total Creatine Kinase C-Reactive Protein Albumin Bdvtz-1-Mzcnzerpo Mpibl-5-Bnbpkikzq Beta Globulins PEP Interpretation Urine Creatinine Complement C3 Complement C4 Coronavirus (PCR) 06/06/20 06/06/20 06/06/20 10:31 12:34 17:34 WBC RBC RDW Lymph % (Auto) Lymph # [place] # Seg Neutrophils % Seg Neuts % (Manual) Lymphocytes % (Manual) Seg Neutrophils # Seg Neutrophils # Man Lymphocytes # (Manual) Monocytes # (Manual) PT INR D-Dimer Sodium Potassium Chloride Carbon Dioxide BUN 65 H Creatinine 2.7 H Glucose 61 L POC Glucose 50 L 117 H Hemoglobin A1c Ferritin Lactate Dehydrogenase Total Creatine Kinase C-Reactive Protein Albumin Myrqv-2-Pwceytgsd Yezmx-3-Giexgjwdf Beta Globulins PEP Interpretation Urine Creatinine Complement C3 Complement C4 Coronavirus (PCR) 06/07/20 06/07/20 06/07/20 04:40 04:40 06:07 WBC 16.3 H RBC RDW 15.6 H Lymph % (Auto) 4.9 L Lymph # 0.8 L [place] # 0.9 H Seg Neutrophils % 89.3 H Seg Neuts % (Manual) Lymphocytes % (Manual) Seg Neutrophils # 14.6 H Seg Neutrophils # Man Lymphocytes # (Manual) Monocytes # (Manual) PT INR D-Dimer Sodium Potassium 5.1 H D Chloride Carbon Dioxide BUN 67 H Creatinine 2.6 H Glucose 52 L POC Glucose 45 L Hemoglobin A1c Ferritin Lactate Dehydrogenase Total Creatine Kinase C-Reactive Protein Albumin Tzxtd-5-Jjnkgzgvb Zqbbi-5-Knevybpck Beta Globulins PEP Interpretation Urine Creatinine Complement C3 Complement C4 Coronavirus (PCR) 06/07/20 06/07/20 06/07/20 10:34 10:49 12:26 WBC RBC RDW Lymph % (Auto) Lymph # [place] # Seg Neutrophils % Seg Neuts % (Manual) Lymphocytes % (Manual) Seg Neutrophils # Seg Neutrophils # Man Lymphocytes # (Manual) Monocytes # (Manual) PT INR D-Dimer Sodium Potassium Chloride Carbon Dioxide BUN Creatinine Glucose POC Glucose 57 L 54 L 192 H Hemoglobin A1c Ferritin Lactate Dehydrogenase Total Creatine Kinase C-Reactive Protein Albumin Trapn-7-Dvhxlcdsd Rbaxm-9-Imodmgqpw Beta Globulins PEP Interpretation Urine Creatinine Complement C3 Complement C4 Coronavirus (PCR) 06/07/20 06/08/20 06/08/20 17:42 00:12 04:52 WBC 18.8 H RBC RDW 15.6 H Lymph % (Auto) 4.6 L Lymph # 0.9 L [place] # 1.0 H Seg Neutrophils % 89.7 H Seg Neuts % (Manual) Lymphocytes % (Manual) Seg Neutrophils # 16.9 H Seg Neutrophils # Man Lymphocytes # (Manual) Monocytes # (Manual) PT INR D-Dimer Sodium Potassium Chloride Carbon Dioxide BUN Creatinine Glucose POC Glucose 241 H 285 H Hemoglobin A1c Ferritin Lactate Dehydrogenase Total Creatine Kinase C-Reactive Protein Albumin Eijrw-5-Lbbcumojt Lmpnf-1-Ghzxrzdhy Beta Globulins PEP Interpretation Urine Creatinine Complement C3 Complement C4 Coronavirus (PCR) 06/08/20 06/08/20 04:52 05:41 WBC RBC RDW Lymph % (Auto) Lymph # [place] # Seg Neutrophils % Seg Neuts % (Manual) Lymphocytes % (Manual) Seg Neutrophils # Seg Neutrophils # Man Lymphocytes # (Manual) Monocytes # (Manual) PT INR D-Dimer Sodium Potassium Chloride Carbon Dioxide BUN 66 H Creatinine 2.6 H Glucose 175 H POC Glucose 177 H Hemoglobin A1c Ferritin Lactate Dehydrogenase Total Creatine Kinase C-Reactive Protein Albumin Jknhf-5-Oqyzwvhwm Ulsmk-4-Zosdzbidg Beta Globulins PEP Interpretation Urine Creatinine Complement C3 Complement C4 Coronavirus (PCR)
--- NOTE | 2020-06-08 15:55 | Progress Note ---
Assessment and Plan Assessment and plan: 54 year old male presenting with shortness of breath, with hypoxia on admission, saturation in the low 80s. Here, his chest x-ray showed bilateral infiltrates and COVID-19 test was positive. He was admitted to the hospital. Patient was started on steroids and ID and pulmonology were consulted. 06/02: Continue current management. Patient on high flow. If can tolerate prone recommend prone position during hours of sleep. 06/03: Continue supportive care. Overall prognosis is guarded. Will discuss proceed with obtaining consent for convalescent plasma. Poor prognosis considering COVID-19 and complicated by renal failure. 06/04: Continue current therapy consent obtained for convalescent plasma. Will discuss with laboratory to obtain the plasma. 06/05: Continue supportive care. Poor prognosis. Patient will like to think about plasma therapy and not ready to sign the consent now. 06/06: Patient remains on high flow with hypoxia persistent despite 100%. Still wants to think about the convalescent plasma therapy. Continue current support with pulmonary assistance. Mild improvement in pulmonary status still not a candidate for Remdesivir. Will obtain nephrology consultation to assist in management 06/07. Patient seen on BiPAP today. Nephrology consulted for impaired renal function. 06/08. He agrees to get convalescent plasma. Order placed in chart. Discussed with blood bank. Problems Acute Hypoxic Respiratory failure 2019 novel sampson virus Pneumonia Bilateral penumonia KEITH WITH VASOMOTOR NEPHROPATHY ON CKD Stage 3 HTN DM with hyperglycemia Plan Continue support care Maintain on BiPAP and high flow oxygen if necessary. Prone positioning as needed if able to tolerate. High risk of intubation given hypoxia Continue steroids Remdesivir precluded due to renal function Continue antibiotics Convalescent plasma ordered as he now consents ID, pulmonology and nephrology following Aspiration precautions DVT/GI prophy Plan discussed with the patient The high probability of a clinically significant, sudden or life threatening deterioration of the [pulmonary] system(s) required my full and direct attention, intervention and personal management. The aggregate critical care time was [35] minutes. This time is in addition to time spent performing reported procedures but includes the following: [x] Data Review and interpretation [x] Patient assessment and monitoring of vital signs [x] Documentation [x] Medication orders and management History Interval history: Patient seen and examined on nasal cannula. I discussed the benefits and risks associated with getting convalescent plasma with him this morning and he agrees. Type and screen ordered. Order for convalescent plasma placed. [facility] with [facility] - Constitutional Vitals: Temp Pulse Resp BP Pulse Ox 98.1 F 93 H 42 H 152/94 89 06/08/20 12:00 06/08/20 13:00 06/08/20 13:00 06/08/20 13:00 06/08/20 13:00 General appearance: Present: no acute distress - EENT Eyes: Present: PERRL - Neck Neck: Present: supple - Respiratory Respiratory: bilateral: rales - Cardiovascular Heart Sounds: Present: S1 & S2 - Extremities Extremities: No edema - Abdominal General gastrointestinal: soft, non-tender, non-distended, normal bowel sounds - Psychiatric Psychiatric: appropriate mood/affect - Neurologic Neurologic: CNII-XII intact HEART Score - HEART Score Troponin: Troponin T 0.021 ng/mL (0.00-0.029) 05/31/20 15:23 Results - Labs CBC & Chem 7: 06/08/20 04:52 06/08/20 04:52 Labs: Laboratory Last Values WBC 18.8 K/mm3 (4.5-11.0) H 06/08/20 04:52 RBC 4.85 M/mm3 (3.65-5.03) 06/08/20 04:52 Hgb 14.4 gm/dl (11.8-15.2) 06/08/20 04:52 Hct 42.2 % (35.5-45.6) 06/08/20 04:52 MCV 87 fl (84-94) 06/08/20 04:52 MCH 30 pg (28-32) 06/08/20 04:52 MCHC 34 % (32-34) 06/08/20 04:52 RDW 15.6 % (13.2-15.2) H 06/08/20 04:52 Plt Count 276 K/mm3 (140-440) 06/08/20 04:52 Lymph % (Auto) 4.6 % (13.4-35.0) L 06/08/20 04:52 [place] % (Auto) 5.4 % (0.0-7.3) 06/08/20 04:52 Eos % (Auto) 0.1 % (0.0-4.3) 06/08/20 04:52 Baso % (Auto) 0.2 % (0.0-1.8) 06/08/20 04:52 Lymph # 0.9 K/mm3 (1.2-5.4) L 06/08/20 04:52 [place] # 1.0 K/mm3 (0.0-0.8) H 06/08/20 04:52 Eos # 0.0 K/mm3 (0.0-0.4) 06/08/20 04:52 Baso # 0.0 K/mm3 (0.0-0.1) 06/08/20 04:52 Add Manual Diff Complete 06/06/20 10:31 Total Counted 100 06/06/20 10:31 Seg Neutrophils % 89.7 % (40.0-70.0) H 06/08/20 04:52 Seg Neuts % (Manual) 90.0 % (40.0-70.0) H 06/06/20 10:31 Band Neutrophils % 0 % 06/06/20 10:31 Lymphocytes % (Manual) 6.0 % (13.4-35.0) L 06/06/20 10:31 Reactive Lymphs % (Man) 0 % 06/06/20 10:31 Monocytes % (Manual) 4.0 % (0.0-7.3) 06/06/20 10:31 Eosinophils % (Manual) 0 % (0.0-4.3) 06/06/20 10:31 Basophils % (Manual) 0 % (0.0-1.8) 06/06/20 10:31 Metamyelocytes % 0 % 06/06/20 10:31 Myelocytes % 0 % 06/06/20 10:31 Promyelocytes % 0 % 06/06/20 10:31 Blast Cells % 0 % 06/06/20 10:31 Nucleated RBC % Not Reportable 06/06/20 10:31 Seg Neutrophils # 16.9 K/mm3 (1.8-7.7) H 06/08/20 04:52 Seg Neutrophils # Man 16.5 K/mm3 (1.8-7.7) H 06/06/20 10:31 Band Neutrophils # 0.0 K/mm3 06/06/20 10:31 Lymphocytes # (Manual) 1.1 K/mm3 (1.2-5.4) L 06/06/20 10:31 Abs React Lymphs (Man) 0.0 K/mm3 06/06/20 10:31 Monocytes # (Manual) 0.7 K/mm3 (0.0-0.8) 06/06/20 10:31 Eosinophils # (Manual) 0.0 K/mm3 (0.0-0.4) 06/06/20 10:31 Basophils # (Manual) 0.0 K/mm3 (0.0-0.1) 06/06/20 10:31 Metamyelocytes # 0.0 K/mm3 06/06/20 10:31 Myelocytes # 0.0 K/mm3 06/06/20 10:31 Promyelocytes # 0.0 K/mm3 06/06/20 10:31 Blast Cells # 0.0 K/mm3 06/06/20 10:31 WBC Morphology Not Reportable 06/06/20 10:31 Hypersegmented Neuts Not Reportable 06/06/20 10:31 Hyposegmented Neuts Not Reportable 06/06/20 10:31 Hypogranular Neuts Not Reportable 06/06/20 10:31 Smudge Cells Not Reportable 06/06/20 10:31 Toxic Granulation Not Reportable 06/06/20 10:31 Toxic Vacuolation Not Reportable 06/06/20 10:31 Dohle Bodies Not Reportable 06/06/20 10:31 Pelger-Huet Anomaly Not Reportable 06/06/20 10:31 Edwige Rods Not Reportable 06/06/20 10:31 Platelet Estimate Consistent w auto 06/06/20 10:31 Clumped Platelets Not Reportable 06/06/20 10:31 Plt Clumps, EDTA Not Reportable 06/06/20 10:31 Large Platelets Not Reportable 06/06/20 10:31 Giant Platelets Not Reportable 06/06/20 10:31 Platelet Satelliting Not Reportable 06/06/20 10:31 Plt Morphology Comment Not Reportable 06/06/20 10:31 RBC Morphology Not Reportable 06/06/20 10:31 Dimorphic RBCs Not Reportable 06/06/20 10:31 Polychromasia Not Reportable 06/06/20 10:31 Hypochromasia Not Reportable 06/06/20 10:31 Poikilocytosis Not Reportable 06/06/20 10:31 Anisocytosis 1+ 06/06/20 10:31 Microcytosis Not Reportable 06/06/20 10:31 Macrocytosis Not Reportable 06/06/20 10:31 Spherocytes Not Reportable 06/06/20 10:31 Pappenheimer Bodies Not Reportable 06/06/20 10:31 Sickle Cells Not Reportable 06/06/20 10:31 Target Cells Not Reportable 06/06/20 10:31 Tear Drop Cells Not Reportable 06/06/20 10:31 Ovalocytes Not Reportable 06/06/20 10:31 Helmet Cells Not Reportable 06/06/20 10:31 [place] Bodies Not Reportable 06/06/20 10:31 [place] Rings Not Reportable 06/06/20 10:31 Mary Cells Not Reportable 06/06/20 10:31 Bite Cells Not Reportable 06/06/20 10:31 Crenated Cell Not Reportable 06/06/20 10:31 Elliptocytes Not Reportable 06/06/20 10:31 Acanthocytes (Spur) Not Reportable 06/06/20 10:31 Rouleaux Not Reportable 06/06/20 10:31 Hemoglobin C Crystals Not Reportable 06/06/20 10:31 Schistocytes Not Reportable 06/06/20 10:31 Malaria parasites Not Reportable 06/06/20 10:31 [place] Bodies Not Reportable 06/06/20 10:31 Hem Pathologist Commnt No 06/06/20 10:31 PT 11.5 Sec. (12.2-14.9) L 05/31/20 15:23 INR 0.83 (0.87-1.13) L 05/31/20 15:23 D-Dimer 738.85 ng/mlDDU (0-234) H 05/31/20 16:49 Sodium 140 mmol/L (137-145) 06/08/20 04:52 Potassium 4.7 mmol/L (3.6-5.0) 06/08/20 04:52 Chloride 101.3 mmol/L (98-107) 06/08/20 04:52 Carbon Dioxide 23 mmol/L (22-30) 06/08/20 04:52 Anion Gap 20 mmol/L 06/08/20 04:52 BUN 66 mg/dL (9-20) H 06/08/20 04:52 Creatinine 2.6 mg/dL (0.8-1.3) H 06/08/20 04:52 Estimated GFR 31 ml/min 06/08/20 04:52 BUN/Creatinine Ratio 25 % 06/08/20 04:52 Glucose 175 mg/dL (75-100) H 06/08/20 04:52 POC Glucose 177 (70-105) H 06/08/20 05:41 Hemoglobin A1c 8.5 % (4-6) H 05/31/20 16:49 Calcium 8.6 mg/dL (8.4-10.2) 06/08/20 04:52 Magnesium 2.20 mg/dL (1.7-2.3) 05/31/20 15:23 Ferritin 599.0 ng/mL (30.0-300.0) H 05/31/20 16:49 Total Bilirubin 0.40 mg/dL (0.1-1.2) 06/05/20 04:56 AST 18 units/L (5-40) 06/05/20 04:56 ALT 23 units/L (7-56) 06/05/20 04:56 Alkaline Phosphatase 93 units/L (35-129) 06/05/20 04:56 Lactate Dehydrogenase 409 units/L (91-180) H 05/31/20 16:49 Total Creatine Kinase 325 units/L (55-170) H 05/31/20 15:23 Troponin T 0.021 ng/mL (0.00-0.029) 05/31/20 15:23 C-Reactive Protein 14.00 mg/dL (0.00-1.30) H 05/31/20 16:49 NT-Pro-B Natriuret Pep 111.3 pg/mL (0-900) 06/01/20 13:41 Serum Total Protein 6.8 g/dL (6.1-8.1) 06/04/20 04:17 Total Protein 7.0 g/dL (6.3-8.2) 06/05/20 04:56 Albumin 3.0 g/dL (3.9-5) L 06/05/20 04:56 Albumin/Globulin Ratio 0.8 % 06/05/20 04:56 Ffhjm-8-Hukzuchxn 0.5 g/dL (0.2-0.3) H 06/04/20 04:17 Inhiu-9-Ztlbepnhf 1.6 g/dL (0.5-0.9) H 06/04/20 04:17 Beta Globulins 0.6 g/dL (0.2-0.5) H 06/04/20 04:17 Gamma Globulins 1.2 g/dL (0.8-1.7) 06/04/20 04:17 Abnorm Protein Band 1 see below 06/04/20 04:17 PEP Interpretation see below H 06/04/20 04:17 Procalcitonin 0.37 ng/mL (<0.15) 06/05/20 05:01 Urine Color Yellow (Yellow) 06/01/20 Unknown Urine Turbidity Clear (Clear) 06/01/20 Unknown Urine pH 5.0 (5.0-7.0) 06/01/20 Unknown Ur Specific [place] 1.018 (1.003-1.030) 06/01/20 Unknown Urine Protein >500 mg/dL (Negative) 06/01/20 Unknown Urine Glucose (UA) >=500 mg/dL (Negative) 06/01/20 Unknown Urine Ketones Tr mg/dL (Negative) 06/01/20 Unknown Urine Blood Mod (Negative) 06/01/20 Unknown Urine Nitrite Neg (Negative) 06/01/20 Unknown Urine Bilirubin Neg (Negative) 06/01/20 Unknown Urine Urobilinogen < 2.0 mg/dL (<2.0) 06/01/20 Unknown Ur Leukocyte Esterase Neg (Negative) 06/01/20 Unknown Urine WBC (Auto) 4.0 /HPF (0.0-6.0) 06/01/20 Unknown Urine RBC (Auto) 9.0 /HPF (0.0-6.0) 06/01/20 Unknown U Epithel Cells (Auto) 1.0 /HPF (0-13.0) 06/01/20 Unknown Urine Mucus Few /HPF 06/01/20 Unknown Urine Eosinophils None seen (None Seen) 06/01/20 Unknown Urine Creatinine 161.6 mg/dL (0.1-20.0) H 06/01/20 Unknown Urine Sodium 47 mmol/L 06/01/20 Unknown Proteinase 3 (PR3) Ab <1.0 AI (<1.0) 06/03/20 13:17 Myeloperoxidase Ab <1.0 AI (<1.0) 06/03/20 13:17 Complement C3 223 mg/dL (82-185) H 06/03/20 10:39 Complement C4 64 mg/dL (15-53) H 06/03/20 10:39 Coronavirus (PCR) Positive (Negative) A 06/01/20 Unknown Hepatitis A IgM Ab Non-reactive (NonReactive) 06/03/20 10:39 Hep Bs Antigen Non-reactive (Negative) 06/03/20 10:39 Hep B Core IgM Ab Non-reactive (NonReactive) 06/03/20 10:39 Hepatitis C Antibody Non-reactive (NonReactive) 06/03/20 10:39 Blood Type A POSITIVE 06/08/20 09:41 Antibody Screen Negative 06/08/20 09:41 Hess/IV: Voiding Method Urinal IV Catheter Type [Right INT / Saline Lock Antecubital] Active Medications - Current Medications Current Medications: Generic Name Dose Route Start Last Admin Trade Name Freq PRN Reason Stop Dose Admin Acetaminophen 650 mg 05/31/20 15:49 Tylenol PO Q6H PRN Pain MILD(1-3)/Fever >100.5/LEBRON Albuterol 2.5 mg 05/31/20 15:49 Proventil IH Q3HRT PRN Shortness Of Breath Amlodipine Besylate 10 mg 06/01/20 10:00 06/08/20 09:37 Amlodipine PO 10 mg DAILY CHERI Administration Atorvastatin Calcium 20 mg 05/31/20 22:00 06/07/20 22:18 Lipitor PO 20 mg QHS CHERI Administration Bisacodyl 10 mg 05/31/20 15:57 Dulcolax ID QDAY PRN Constipation unrelieved by MOM Chlorpromazine HCl 10 mg 05/31/20 15:57 Thorazine PO Q6H PRN Hiccups Dexamethasone 6 mg 06/01/20 10:00 06/08/20 09:37 Decadron PO 06/11/20 09:59 6 mg DAILY CHERI Administration Dextrose 50 ml 05/31/20 15:59 06/07/20 10:48 D50w (25gm) Syringe IV 20 ml Q30MIN PRN Administration Hypoglycemia Protocol Enoxaparin Sodium 30 mg 06/01/20 10:00 06/08/20 09:38 Enoxaparin SUB-Q 30 mg QDAY CHERI Administration Insulin Glargine 8 units 06/08/20 22:00 Lantus SUB-Q QHS CHERI Insulin Human Lispro 0 unit 05/31/20 16:00 06/08/20 13:00 Humalog SUB-Q 300 unit Q6H CHERI Administration Protocol Naloxone HCl 0.1 mg 05/31/20 15:49 Naloxone IV Q2MIN PRN Res Rate </= 8 or 02 SAT < 92% Ondansetron HCl 4 mg 05/31/20 15:57 Zofran IV Q8H PRN N/V unrelieved by Reglan Oxycodone/Acetaminophen 1 tab 05/31/20 15:49 06/03/20 00:57 Percocet 5/325 PO 1 tab Q6H PRN Administration Pain, Moderate (4-6) Sodium Chloride 10 ml 05/31/20 22:00 06/08/20 09:38 Sodium Chloride Flush Syringe 10 Ml IV 10 ml BID CHERI Administration Sodium Chloride 10 ml 05/31/20 15:49 Sodium Chloride Flush Syringe 10 Ml IV PRN PRN LINE FLUSH Tizanidine HCl 4 mg 05/31/20 15:57 Zanaflex PO Q8H PRN Muscle Spasm Nutrition/Malnutrition Assess - Dietary Evaluation Nutrition/Malnutrition Findings: Nutrition Notes Start: 06/01/20 10:42 Freq: Status: Active Protocol: Document 06/06/20 12:01 [email or web address] (Rec: 06/06/20 12:19 [email or web address]) Co-Sign 06/06/20 12:01 NHALL Nutrition Notes Initial or Follow up Assessment Current Diagnosis CKD(stage I-IV),Diabetes, Hypertension,Stroke Other Pertinent Diagnosis COVID-19 (+) Current Diet Renal Labs/Tests Reviewed Height 5 ft 9 in Weight 113 kg [place] Body Weight (kg) 72.72 BMI 36.8 Weight Status Obese Subjective/Other Information Unable to reach pt by phone with two attempts. Spoke to RN about intakes. Consumes 100% of meals when not on Bipap. Burn Absent Trauma Absent Minimum of two criteria No #1 Nutrition Diagnosis Altered nutrition-related laboratory values Etiology uncontrolled BG As Evidenced by Signs and Symptoms HgbA1c 8.5 Is patient on ventilator? No Is Patient Ambulatory and/or Out of Bed No [facility] 2344.476 Kcal/Kg value to use for calculation 16 Approximate Energy Requirements Using 1808 kcal/Kg Additional Notes Protein Needs (1-1.2g/kg AdBW) 92-110g Fluid: 1ml/kcal Nutrition Intervention Change Diet Order: Continue Goal #1 Improve BG control Goal #2 Continued Adequate oral intake Anticipated Discharge Needs: CHO Control diet Follow-Up By: 06/11/20 Additional Comments F/U for intakes and diet education needs
[2020-06-08] MEDS: INSULIN GLARGINE 100 UNITS/ML SUB-Q SCH (21:25)
[2020-06-09] MEDS ORDERED: LORazepam 2 MG/ML VIAL IM ONE (01:32)
[2020-06-09] MEDS ORDERED: LORazepam 2 MG/ML VIAL IV ONE (01:42)
[2020-06-09 01:45] LABS: Hemoglobin 14.1 gm/dl (11.8-15.2)
[2020-06-09 01:53] LABS: Hematocrit 39.7 % (35.5-45.6); Mean Corpuscular HGB Conc 36 % (32-34); Mean Corpuscular Volume 85 fl (84-94); Platelet Count 254 K/mm3 (140-440); Red Blood Count 4.66 M/mm3 (3.65-5.03); Red Cell Distribution Width 15.5 % (13.2-15.2)
[2020-06-09 01:54] LABS: Basophils % (Auto) 0.2 % (0.0-1.8); Lymphocytes % (Auto) 5.3 % (13.4-35.0); Monocytes # (Auto) 0.8 K/mm3 (0.0-0.8); Monocytes % (Auto) 4.1 % (0.0-7.3)
[2020-06-09 02:05] LABS: Albumin 2.6 g/dL (3.9-5); Calcium 8.3 mg/dL (8.4-10.2)
[2020-06-09 06:40] LABS: Calcium 8.8 mg/dL (8.4-10.2)
[2020-06-09] MEDS: INSULIN LISPRO 100 UNIT/ML VIAL 3 mL SUB-Q SCH ×4 (07:10→22:42)
--- NOTE | 2020-06-09 07:58 | Progress Note ---
Assessment and Plan Assessment and plan: 54 year old male presenting with shortness of breath, with hypoxia on admission, saturation in the low 80s. Here, his chest x-ray showed bilateral infiltrates and COVID-19 test was positive. He was admitted to the hospital. Patient was started on steroids and ID and pulmonology were consulted. 06/02: Continue current management. Patient on high flow. If can tolerate prone recommend prone position during hours of sleep. 06/03: Continue supportive care. Overall prognosis is guarded. Will discuss proceed with obtaining consent for convalescent plasma. Poor prognosis considering COVID-19 and complicated by renal failure. 06/04: Continue current therapy consent obtained for convalescent plasma. Will discuss with laboratory to obtain the plasma. 06/05: Continue supportive care. Poor prognosis. Patient will like to think about plasma therapy and not ready to sign the consent now. 06/06: Patient remains on high flow with hypoxia persistent despite 100%. Still wants to think about the convalescent plasma therapy. Continue current support with pulmonary assistance. Mild improvement in pulmonary status still not a candidate for Remdesivir. Will obtain nephrology consultation to assist in management 06/07. Patient seen on BiPAP today. Nephrology consulted for impaired renal function. 06/08. He agrees to get convalescent plasma. Order placed in chart. Discussed with blood bank. 06/09: Convalescent plasma ordered, poor prognosis, still monitoring renal function, continues on BIPAP. Check markers for COVID19. continue steroids to complete 10 days. Problems Acute Hypoxic Respiratory failure Luekocytosis- Persist 2018 novel sampson virus Pneumonia Bilateral penumonia KEITH WITH VASOMOTOR NEPHROPATHY ON CKD Stage 3 HTN DM with hyperglycemia Plan Continue support care Maintain on BiPAP and high flow oxygen if necessary. Prone positioning as needed if able to tolerate. High risk of intubation given hypoxia Continue steroids Remdesivir precluded due to renal function Continue antibiotics Convalescent plasma ordered as he now consents ID, pulmonology and nephrology following Aspiration precautions DVT/GI prophy Plan discussed with the patient The high probability of a clinically significant, sudden or life threatening deterioration of the [pulmonary] system(s) required my full and direct attention, intervention and personal management. The aggregate critical care time was [35] minutes. This time is in addition to time spent performing reported procedures but includes the following: [x] Data Review and interpretation [x] Patient assessment and monitoring of vital signs [x] Documentation [x] Medication orders and management History Interval history: Patient seen and examined becomes hypoxic off bipap Hospitalist Physical - Physical exam Narrative exam: VITAL SIGNS: Reviewed. GENERAL: The patient appears normally developed, moderate respiratory distress on BIPAP obese vital signs as documented. HEAD: No signs of head trauma. EYES: Pupils are equal. Extraocular motions intact. EARS: Hearing grossly intact. MOUTH: Oropharynx is normal. NECK: No adenopathy, no JVD. CHEST: Rapid respiratory rate chest with diminished breath sounds bilaterally. No wheezes, rales, or rhonchi. CARDIAC: Regular rate and rhythm. S1 and S2, without murmurs, gallops, or rubs. VASCULAR: No Edema. Peripheral pulses normal and equal in all extremities. ABDOMEN: Soft, non tender and non distended. No rebound or guarding, and no masses palpated. Bowel Sounds normal. MUSCULOSKELETAL: Good range of motion of all major joints. Extremities without clubbing, cyanosis or edema. NEUROLOGIC EXAM: Awake but lethargic and oriented x 3 No focal sensory or strength deficits. Speech normal. Follows commands. PSYCHIATRIC: Mood normal. SKIN: detail exam as documented in skin assessment - Constitutional Vitals: Temp Pulse Resp BP Pulse Ox 98.9 F 95 H 43 H 145/110 95 06/09/20 03:52 06/09/20 07:00 06/09/20 07:00 06/09/20 07:00 06/09/20 07:00 General appearance: Present: no acute distress HEART Score - HEART Score Troponin: Troponin T 0.021 ng/mL (0.00-0.029) 05/31/20 15:23 Results - Labs CBC & Chem 7: 06/09/20 01:03 06/09/20 09:21 Labs: Laboratory Last Values WBC 19.6 K/mm3 (4.5-11.0) H 06/09/20 01:03 RBC 4.66 M/mm3 (3.65-5.03) 06/09/20 01:03 Hgb 14.1 gm/dl (11.8-15.2) 06/09/20 01:03 Hct 39.7 % (35.5-45.6) 06/09/20 01:03 MCV 85 fl (84-94) 06/09/20 01:03 MCH 30 pg (28-32) 06/09/20 01:03 MCHC 36 % (32-34) H 06/09/20 01:03 RDW 15.5 % (13.2-15.2) H 06/09/20 01:03 Plt Count 254 K/mm3 (140-440) 06/09/20 01:03 Lymph % (Auto) 5.3 % (13.4-35.0) L 06/09/20 01:03 [place] % (Auto) 4.1 % (0.0-7.3) 06/09/20 01:03 Eos % (Auto) 0.0 % (0.0-4.3) 06/09/20 01:03 Baso % (Auto) 0.2 % (0.0-1.8) 06/09/20 01:03 Lymph # 1.0 K/mm3 (1.2-5.4) L 06/09/20 01:03 [place] # 0.8 K/mm3 (0.0-0.8) 06/09/20 01:03 Eos # 0.0 K/mm3 (0.0-0.4) 06/09/20 01:03 Baso # 0.0 K/mm3 (0.0-0.1) 06/09/20 01:03 Add Manual Diff Complete 06/06/20 10:31 Total Counted 100 06/06/20 10:31 Seg Neutrophils % Sap Consultant 06/09/20 01:03 Seg Neuts % (Manual) 90.0 % (40.0-70.0) H 06/06/20 10:31 Band Neutrophils % 0 % 06/06/20 10:31 Lymphocytes % (Manual) 6.0 % (13.4-35.0) L 06/06/20 10:31 Reactive Lymphs % (Man) 0 % 06/06/20 10:31 Monocytes % (Manual) 4.0 % (0.0-7.3) 06/06/20 10:31 Eosinophils % (Manual) 0 % (0.0-4.3) 06/06/20 10:31 Basophils % (Manual) 0 % (0.0-1.8) 06/06/20 10:31 Metamyelocytes % 0 % 06/06/20 10:31 Myelocytes % 0 % 06/06/20 10:31 Promyelocytes % 0 % 06/06/20 10:31 Blast Cells % 0 % 06/06/20 10:31 Nucleated RBC % Not Reportable 06/06/20 10:31 Seg Neutrophils # 17.7 K/mm3 (1.8-7.7) H 06/09/20 01:03 Seg Neutrophils # Man 16.5 K/mm3 (1.8-7.7) H 06/06/20 10:31 Band Neutrophils # 0.0 K/mm3 06/06/20 10:31 Lymphocytes # (Manual) 1.1 K/mm3 (1.2-5.4) L 06/06/20 10:31 Abs React Lymphs (Man) 0.0 K/mm3 06/06/20 10:31 Monocytes # (Manual) 0.7 K/mm3 (0.0-0.8) 06/06/20 10:31 Eosinophils # (Manual) 0.0 K/mm3 (0.0-0.4) 06/06/20 10:31 Basophils # (Manual) 0.0 K/mm3 (0.0-0.1) 06/06/20 10:31 Metamyelocytes # 0.0 K/mm3 06/06/20 10:31 Myelocytes # 0.0 K/mm3 06/06/20 10:31 Promyelocytes # 0.0 K/mm3 06/06/20 10:31 Blast Cells # 0.0 K/mm3 06/06/20 10:31 WBC Morphology Not Reportable 06/06/20 10:31 Hypersegmented Neuts Not Reportable 06/06/20 10:31 Hyposegmented Neuts Not Reportable 06/06/20 10:31 Hypogranular Neuts Not Reportable 06/06/20 10:31 Smudge Cells Not Reportable 06/06/20 10:31 Toxic Granulation Not Reportable 06/06/20 10:31 Toxic Vacuolation Not Reportable 06/06/20 10:31 Dohle Bodies Not Reportable 06/06/20 10:31 Pelger-Huet Anomaly Not Reportable 06/06/20 10:31 Edwige Rods Not Reportable 06/06/20 10:31 Platelet Estimate Consistent w auto 06/06/20 10:31 Clumped Platelets Not Reportable 06/06/20 10:31 Plt Clumps, EDTA Not Reportable 06/06/20 10:31 Large Platelets Not Reportable 06/06/20 10:31 Giant Platelets Not Reportable 06/06/20 10:31 Platelet Satelliting Not Reportable 06/06/20 10:31 Plt Morphology Comment Not Reportable 06/06/20 10:31 RBC Morphology Not Reportable 06/06/20 10:31 Dimorphic RBCs Not Reportable 06/06/20 10:31 Polychromasia Not Reportable 06/06/20 10:31 Hypochromasia Not Reportable 06/06/20 10:31 Poikilocytosis Not Reportable 06/06/20 10:31 Anisocytosis 1+ 06/06/20 10:31 Microcytosis Not Reportable 06/06/20 10:31 Macrocytosis Not Reportable 06/06/20 10:31 Spherocytes Not Reportable 06/06/20 10:31 Pappenheimer Bodies Not Reportable 06/06/20 10:31 Sickle Cells Not Reportable 06/06/20 10:31 Target Cells Not Reportable 06/06/20 10:31 Tear Drop Cells Not Reportable 06/06/20 10:31 Ovalocytes Not Reportable 06/06/20 10:31 Helmet Cells Not Reportable 06/06/20 10:31 [place] Bodies Not Reportable 06/06/20 10:31 [place] Rings Not Reportable 06/06/20 10:31 Mary Cells Not Reportable 06/06/20 10:31 Bite Cells Not Reportable 06/06/20 10:31 Crenated Cell Not Reportable 06/06/20 10:31 Elliptocytes Not Reportable 06/06/20 10:31 Acanthocytes (Spur) Not Reportable 06/06/20 10:31 Rouleaux Not Reportable 06/06/20 10:31 Hemoglobin C Crystals Not Reportable 06/06/20 10:31 Schistocytes Not Reportable 06/06/20 10:31 Malaria parasites Not Reportable 06/06/20 10:31 [place] Bodies Not Reportable 06/06/20 10:31 Hem Pathologist Commnt No 06/06/20 10:31 PT 11.5 Sec. (12.2-14.9) L 05/31/20 15:23 INR 0.83 (0.87-1.13) L 05/31/20 15:23 D-Dimer 738.85 ng/mlDDU (0-234) H 05/31/20 16:49 Sodium 138 mmol/L (137-145) 06/09/20 05:42 Potassium 4.8 mmol/L (3.6-5.0) 06/09/20 05:42 Chloride 101.5 mmol/L (98-107) 06/09/20 05:42 Carbon Dioxide 20 mmol/L (22-30) L 06/09/20 05:42 Anion Gap 21 mmol/L 06/09/20 05:42 BUN 66 mg/dL (9-20) H 06/09/20 05:42 Creatinine 2.7 mg/dL (0.8-1.3) H 06/09/20 05:42 Estimated GFR 30 ml/min 06/09/20 05:42 BUN/Creatinine Ratio 24 % 06/09/20 05:42 Glucose 141 mg/dL (75-100) H 06/09/20 05:42 POC Glucose 136 (70-105) H 06/09/20 06:02 Hemoglobin A1c 8.5 % (4-6) H 05/31/20 16:49 Calcium 8.8 mg/dL (8.4-10.2) 06/09/20 05:42 Magnesium 2.20 mg/dL (1.7-2.3) 05/31/20 15:23 Ferritin 599.0 ng/mL (30.0-300.0) H 05/31/20 16:49 Total Bilirubin 0.30 mg/dL (0.1-1.2) 06/09/20 01:03 AST 22 units/L (5-40) 06/09/20 01:03 ALT 29 units/L (7-56) 06/09/20 01:03 Alkaline Phosphatase 114 units/L (35-129) 06/09/20 01:03 Lactate Dehydrogenase 409 units/L (91-180) H 05/31/20 16:49 Total Creatine Kinase 325 units/L (55-170) H 05/31/20 15:23 Troponin T 0.021 ng/mL (0.00-0.029) 05/31/20 15:23 C-Reactive Protein 14.00 mg/dL (0.00-1.30) H 05/31/20 16:49 NT-Pro-B Natriuret Pep 111.3 pg/mL (0-900) 06/01/20 13:41 Serum Total Protein 6.8 g/dL (6.1-8.1) 06/04/20 04:17 Total Protein 6.5 g/dL (6.3-8.2) 06/09/20 01:03 Albumin 2.6 g/dL (3.9-5) L 06/09/20 01:03 Albumin/Globulin Ratio 0.7 % 06/09/20 01:03 Pibex-6-Sabatijbu 0.5 g/dL (0.2-0.3) H 06/04/20 04:17 Ufqdy-4-Losvqjysk 1.6 g/dL (0.5-0.9) H 06/04/20 04:17 Beta Globulins 0.6 g/dL (0.2-0.5) H 06/04/20 04:17 Gamma Globulins 1.2 g/dL (0.8-1.7) 06/04/20 04:17 Abnorm Protein Band 1 see below 06/04/20 04:17 PEP Interpretation see below H 06/04/20 04:17 Procalcitonin 0.37 ng/mL (<0.15) 06/05/20 05:01 Urine Color Yellow (Yellow) 06/01/20 Unknown Urine Turbidity Clear (Clear) 06/01/20 Unknown Urine pH 5.0 (5.0-7.0) 06/01/20 Unknown Ur Specific [place] 1.018 (1.003-1.030) 06/01/20 Unknown Urine Protein >500 mg/dL (Negative) 06/01/20 Unknown Urine Glucose (UA) >=500 mg/dL (Negative) 06/01/20 Unknown Urine Ketones Tr mg/dL (Negative) 06/01/20 Unknown Urine Blood Mod (Negative) 06/01/20 Unknown Urine Nitrite Neg (Negative) 06/01/20 Unknown Urine Bilirubin Neg (Negative) 06/01/20 Unknown Urine Urobilinogen < 2.0 mg/dL (<2.0) 06/01/20 Unknown Ur Leukocyte Esterase Neg (Negative) 06/01/20 Unknown Urine WBC (Auto) 4.0 /HPF (0.0-6.0) 06/01/20 Unknown Urine RBC (Auto) 9.0 /HPF (0.0-6.0) 06/01/20 Unknown U Epithel Cells (Auto) 1.0 /HPF (0-13.0) 06/01/20 Unknown Urine Mucus Few /HPF 06/01/20 Unknown Urine Eosinophils None seen (None Seen) 06/01/20 Unknown Urine Creatinine 161.6 mg/dL (0.1-20.0) H 06/01/20 Unknown Urine Sodium 47 mmol/L 06/01/20 Unknown Proteinase 3 (PR3) Ab <1.0 AI (<1.0) 06/03/20 13:17 Myeloperoxidase Ab <1.0 AI (<1.0) 06/03/20 13:17 Complement C3 223 mg/dL (82-185) H 06/03/20 10:39 Complement C4 64 mg/dL (15-53) H 06/03/20 10:39 Coronavirus (PCR) Positive (Negative) A 06/01/20 Unknown Hepatitis A IgM Ab Non-reactive (NonReactive) 06/03/20 10:39 Hep Bs Antigen Non-reactive (Negative) 06/03/20 10:39 Hep B Core IgM Ab Non-reactive (NonReactive) 06/03/20 10:39 Hepatitis C Antibody Non-reactive (NonReactive) 06/03/20 10:39 Blood Type A POSITIVE 06/08/20 09:41 Antibody Screen Negative 06/08/20 09:41 Hess/IV: Voiding Method Urinal IV Catheter Type [Right Upper Peripheral IV arm] IV Catheter Type [Right INT / Saline Lock Antecubital] Active Medications - Current Medications Current Medications: Generic Name Dose Route Start Last Admin Trade Name Freq PRN Reason Stop Dose Admin Acetaminophen 650 mg 05/31/20 15:49 Tylenol PO Q6H PRN Pain MILD(1-3)/Fever >100.5/LEBRON Albuterol 2.5 mg 05/31/20 15:49 Proventil IH Q3HRT PRN Shortness Of Breath Amlodipine Besylate 10 mg 06/01/20 10:00 06/08/20 09:37 Amlodipine PO 10 mg DAILY CHERI Administration Atorvastatin Calcium 20 mg 05/31/20 22:00 06/08/20 21:26 Lipitor PO 20 mg QHS CHERI Administration Bisacodyl 10 mg 05/31/20 15:57 Dulcolax [place] QDAY PRN Constipation unrelieved by MOM Chlorpromazine HCl 10 mg 05/31/20 15:57 Thorazine PO Q6H PRN Hiccups Dexamethasone 6 mg 06/01/20 10:00 06/08/20 09:37 Decadron PO 06/11/20 09:59 6 mg DAILY CHERI Administration Dextrose 50 ml 05/31/20 15:59 06/07/20 10:48 D50w (25gm) Syringe IV 20 ml Q30MIN PRN Administration Hypoglycemia Protocol Enoxaparin Sodium 30 mg 06/01/20 10:00 06/08/20 09:38 Enoxaparin SUB-Q 30 mg QDAY CHERI Administration Insulin Glargine 8 units 06/08/20 22:00 06/08/20 21:25 Lantus SUB-Q 8 units QHS CHERI Administration Insulin Human Lispro 0 unit 05/31/20 16:00 06/09/20 07:10 Humalog SUB-Q Not Given Q6H [facility] Protocol Naloxone HCl 0.1 mg 05/31/20 15:49 Naloxone IV Q2MIN PRN Res Rate </= 8 or 02 SAT < 92% Ondansetron HCl 4 mg 05/31/20 15:57 Zofran IV Q8H PRN N/V unrelieved by Reglan Oxycodone/Acetaminophen 1 tab 05/31/20 15:49 06/03/20 00:57 Percocet 5/325 PO 1 tab Q6H PRN Administration Pain, Moderate (4-6) Sodium Chloride 10 ml 05/31/20 22:00 06/08/20 21:25 Sodium Chloride Flush Syringe 10 Ml IV 10 ml BID CHERI Administration Sodium Chloride 10 ml 05/31/20 15:49 Sodium Chloride Flush Syringe 10 Ml IV PRN PRN LINE FLUSH Tizanidine HCl 4 mg 05/31/20 15:57 06/08/20 21:47 Zanaflex PO 4 mg Q8H PRN Administration Muscle Spasm Nutrition/Malnutrition Assess - Dietary Evaluation Nutrition/Malnutrition Findings: Nutrition Notes Start: 06/01/20 10:42 Freq: Status: Active Protocol: Document 06/06/20 12:01 [email or web address] (Rec: 06/06/20 12:19 [email or web address]) Co-Sign 09/03/20 12:01 NHALL Nutrition Notes Initial or Follow up Assessment Current Diagnosis CKD(stage I-IV),Diabetes, Hypertension,Stroke Other Pertinent Diagnosis COVID-19 (+) Current Diet Renal Labs/Tests Reviewed Height 5 ft 9 in Weight 113 kg [place] Body Weight (kg) 72.72 BMI 36.8 Weight Status Obese Subjective/Other Information Unable to reach pt by phone with two attempts. Spoke to RN about intakes. Consumes 100% of meals when not on Bipap. Burn Absent Trauma Absent Minimum of two criteria No #1 Nutrition Diagnosis Altered nutrition-related laboratory values Etiology uncontrolled BG As Evidenced by Signs and Symptoms HgbA1c 8.5 Is patient on ventilator? No Is Patient Ambulatory and/or Out of Bed No REE-([facility]-confined [facility] bed) 2344.476 Kcal/Kg value to use for calculation 16 Approximate Energy Requirements Using 1808 kcal/Kg Additional Notes Protein Needs (1-1.2g/kg AdBW) 92-110g Fluid: 1ml/kcal Nutrition Intervention Change Diet Order: Continue Goal #1 Improve BG control Goal #2 Continued Adequate oral intake Anticipated Discharge Needs: CHO Control diet Follow-Up By: 06/11/20 Additional Comments F/U for intakes and diet education needs
--- NOTE | 2020-06-09 08:59 | Progress Note ---
Assessment and Plan 1. Acute kidney injury: KEITH superimposed on CKD satge 3 in the setting of severe COVID infection. Renal US pending. UA results noted. Monitor renal function. Creatinine leveled off. Avoid nephrotoxic agents. Meds dosage based on GFR. Monitor for SOCIAL MEDIA MARKETING MANAGER needs. No acute indication for SOCIAL MEDIA MARKETING MANAGER today. 2. FEN: Hyperkalemia, improved, monitor. Metabolic acidosis, monitor. Monitor lytes and volume status. 3. Acute hypoxic respiratory failure: 2/2 COVID-19 PNA. On Decadron. On HFNC O2 / BIPAP. Followed by Pulmonary. 4. Bilateral COVID-19 PNA: Followed by ID. 5. DM with hyperglycemia: Accu-Check, sliding scale coverage, ADA diet. 6. Hypertension: Monitor BP. - Subjective: Patient was [facility] and [facility] In [facility]. D/w RN. - General Appearance General appearance: well-developed, well-nourished, appears stated age, no distress, on HFNC O2 HEENT: ATNC Neurologic: appears sleeping Subjective Date of service: 06/09/20 Principal diagnosis: keith Objective - Vital Signs Vital signs: Vital Signs - 12hr 06/08/20 06/08/20 06/08/20 21:00 21:30 22:00 Temperature Pulse Rate 101 H 103 H 97 H Pulse Rate [ From Monitor] Respiratory 19 36 H 29 H Rate Blood Pressure 137/93 137/93 148/93 O2 Sat by Pulse 90 88 91 Oximetry 06/08/20 06/08/20 06/08/20 22:30 22:34 23:00 Temperature Pulse Rate 101 H 94 H 90 Pulse Rate [ From Monitor] Respiratory 37 H 35 H 36 H Rate Blood Pressure 148/93 148/93 139/89 O2 Sat by Pulse 80 L 95 95 Oximetry 06/08/20 06/08/20 06/09/20 23:30 23:57 00:00 Temperature 98.7 F Pulse Rate 90 88 Pulse Rate [ 98 H From Monitor] Respiratory 31 H 35 H Rate Blood Pressure 139/89 127/87 O2 Sat by Pulse 90 87 Oximetry 06/09/20 06/09/20 06/09/20 00:04 00:07 00:30 Temperature Pulse Rate 91 H 98 H 86 Pulse Rate [ From Monitor] Respiratory 28 H 30 H 35 H Rate Blood Pressure 127/87 127/87 127/87 O2 Sat by Pulse 86 98 99 Oximetry 06/09/20 06/09/20 06/09/20 01:00 01:30 02:00 Temperature Pulse Rate 89 91 H 93 H Pulse Rate [ From Monitor] Respiratory 35 H 34 H 40 H Rate Blood Pressure 127/87 141/96 141/96 O2 Sat by Pulse 100 100 100 Oximetry 06/09/20 06/09/20 06/09/20 02:30 03:00 03:30 Temperature Pulse Rate 94 H 93 H 95 H Pulse Rate [ From Monitor] Respiratory 33 H 38 H 28 H Rate Blood Pressure 141/96 145/93 139/93 O2 Sat by Pulse 99 100 98 Oximetry 06/09/20 06/09/20 06/09/20 03:49 03:52 04:00 Temperature 98.9 F Pulse Rate 97 H 98 H Pulse Rate [ 102 H From Monitor] Respiratory 46 H 37 H Rate Blood Pressure 141/93 O2 Sat by Pulse 97 97 Oximetry 06/09/20 06/09/20 06/09/20 04:30 05:00 05:30 Temperature Pulse Rate 96 H 101 H 95 H Pulse Rate [ From Monitor] Respiratory 44 H 39 H 39 H Rate Blood Pressure 141/93 141/93 150/98 O2 Sat by Pulse 96 97 94 Oximetry 06/09/20 06/09/20 06/09/20 06:00 06:30 07:00 Temperature Pulse Rate 94 H 94 H 95 H Pulse Rate [ From Monitor] Respiratory 36 H 34 H 43 H Rate Blood Pressure 150/98 155/110 145/110 O2 Sat by Pulse 95 95 95 Oximetry 06/09/20 06/09/20 07:30 08:00 Temperature Pulse Rate 94 H 95 H Pulse Rate [ From Monitor] Respiratory 41 H 35 H Rate Blood Pressure 145/110 149/100 O2 Sat by Pulse 96 95 Oximetry - Lab 06/09/20 01:03 06/09/20 05:42 Most recent lab results Calcium 8.8 mg/dL (8.4-10.2) 06/09/20 05:42 Magnesium 2.20 mg/dL (1.7-2.3) 05/31/20 15:23 Urine Creatinine 161.6 mg/dL (0.1-20.0) H 06/01/20 Unknown Urine Sodium 47 mmol/L 06/01/20 Unknown Medications & Allergies - Medications Allergies/Adverse Reactions: Allergies lisinopril Allergy (Verified 05/31/20 13:03) Angioedema Penicillins Allergy (Verified 05/31/20 13:03) Hives Home Medications: Home Medications Medication Instructions Recorded Confirmed Last Taken Type Acetaminophen [Acetaminophen TAB] 650 mg PO Q4H PRN #30 tablet 02/15/17 Unknown Rx AtorvaSTATin [Lipitor] 20 mg PO QHS tablet 02/15/17 Unknown Rx Cipro/Dexameth 0.3/0.1% [Ciprodex 4 drops AU BID bottle 02/15/17 Unknown Rx OTIC] Detemir (Nf) [Levemir (Nf)] 100 units SUB-Q QHS units 02/15/17 Unknown Rx Dextrose 50% in Water [D50W (25GM) 50 ml IV PRN PRN #30 syringe 02/15/17 Unknown Rx Syringe] Enoxaparin 40 mg SUB-Q QDAY syringe 02/15/17 Unknown Rx Lipase/Protease/Amylase [Pancreaze 1 each FEEDTUBE PRN PRN #30 capsule 02/15/17 Unknown Rx 10,500 Unit] Metoprolol [Lopressor TAB] 25 mg PO BID tablet 02/15/17 Unknown Rx Metoprolol [Lopressor TAB] 25 mg PO BID #60 tablet 02/15/17 Unknown Rx Ondansetron [Zofran INJ] 4 mg IV Q8H PRN #30 vial 02/15/17 Unknown Rx Prednisone [predniSONE 5 mg (6-Day 5 mg PO .TAPER #1 tab.ds.pk 02/15/17 Unknown Rx Pack, 21 Tabs)] Simple Syrup 15 ml FEEDTUBE PRN PRN #30 02/15/17 Unknown Rx oral.liqd Simple Syrup 30 ml FEEDTUBE PRN PRN #30 02/15/17 Unknown Rx oral.liqd Sodium Bicarbonate 325 mg FEEDTUBE PRN PRN #30 tablet 02/15/17 Unknown Rx amLODIPine 10 mg PO DAILY tablet 02/15/17 Unknown Rx amLODIPine [Norvasc] 10 mg PO DAILY #30 tab 02/15/17 Unknown Rx bisacodyL [Dulcolax suppos] 10 mg [place] QDAY PRN #30 supp.rect 02/15/17 Unknown Rx chlorproMAZINE [Thorazine] 10 mg PO Q6H PRN #30 tablet 02/15/17 Unknown Rx dexAMETHasone [Decadron] 6 mg IV Q6HR vial 02/15/17 Unknown Rx hydrALAZINE [Apresoline INJ] 10 mg IV Q6HR PRN #30 vial 02/15/17 Unknown Rx oxyCODONE /ACETAMINOPHEN [Percocet 1 tab PO Q4H PRN #30 tablet 02/15/17 Unknown Rx 5/325 mg] oxyCODONE /ACETAMINOPHEN [Percocet 1 tab PO Q4HR #30 tab 02/15/17 Unknown Rx 5/325] tiZANidine [Zanaflex 4mg TAB] 4 mg PO Q8H PRN #30 tablet 02/15/17 Unknown Rx Permethrin 5% [Acticin 5% CREAM] 1 applicatio TP ONCE #1 tube 06/11/17 Unknown Rx Azithromycin [Zithromax Z-BENJIE] 250 mg PO DAILY 1 Days tab 11/23/18 Unknown Rx Ondansetron [Zofran Odt] 4 mg PO Q8HR PRN #14 tab.rapdis 11/23/18 Unknown Rx traMADoL [Ultram 50 MG tab] 50 mg PO Q4HR PRN #14 tablet 11/23/18 Unknown Rx Active Medications: Generic Name Dose Route Start Last Admin Trade Name Freq PRN Reason Stop Dose Admin Acetaminophen 650 mg 05/31/20 15:49 Tylenol PO Q6H PRN Pain MILD(1-3)/Fever >100.5/LEBRON Albuterol 2.5 mg 05/31/20 15:49 Proventil IH Q3HRT PRN Shortness Of Breath Amlodipine Besylate 10 mg 06/01/20 10:00 06/08/20 09:37 Amlodipine PO 10 mg DAILY CHERI Administration Atorvastatin Calcium 20 mg 05/31/20 22:00 06/08/20 21:26 Lipitor PO 20 mg QHS CHERI Administration Bisacodyl 10 mg 05/31/20 15:57 Dulcolax [place] QDAY PRN Constipation unrelieved by MOM Chlorpromazine HCl 10 mg 05/31/20 15:57 Thorazine PO Q6H PRN Hiccups Dexamethasone 6 mg 06/01/20 10:00 06/08/20 09:37 Decadron PO 06/11/20 09:59 6 mg DAILY CHERI Administration Dextrose 50 ml 05/31/20 15:59 09/04/20 10:48 D50w (25gm) Syringe IV 20 ml Q30MIN PRN Administration Hypoglycemia Protocol Enoxaparin Sodium 30 mg 06/01/20 10:00 06/08/20 09:38 Enoxaparin SUB-Q 30 mg QDAY CHERI Administration Insulin Glargine 8 units 06/08/20 22:00 06/08/20 21:25 Lantus SUB-Q 8 units QHS CHERI Administration Insulin Human Lispro 0 unit 05/31/20 16:00 06/09/20 07:10 Humalog SUB-Q Not Given Q6H [facility] Protocol Naloxone HCl 0.1 mg 05/31/20 15:49 Naloxone IV Q2MIN PRN Res Rate </= 8 or 02 SAT < 92% Ondansetron HCl 4 mg 05/31/20 15:57 Zofran IV Q8H PRN N/V unrelieved by Reglan Oxycodone/Acetaminophen 1 tab 05/31/20 15:49 06/03/20 00:57 Percocet 5/325 PO 1 tab Q6H PRN Administration Pain, Moderate (4-6) Sodium Chloride 10 ml 05/31/20 22:00 06/08/20 21:25 Sodium Chloride Flush Syringe 10 Ml IV 10 ml BID CHERI Administration Sodium Chloride 10 ml 05/31/20 15:49 Sodium Chloride Flush Syringe 10 Ml IV PRN PRN LINE FLUSH Tizanidine HCl 4 mg 05/31/20 15:57 06/08/20 21:47 Zanaflex PO 4 mg Q8H PRN Administration Muscle Spasm
[2020-06-09] MEDS: amLODIPine 10 MG TAB PO SCH (10:16)
[2020-06-09] MEDS: DEXAMETHASONE 4 MG TAB PO SCH (10:16)
[2020-06-09] MEDS: ENOXAPARIN 30 MG/0.3 ML INJ SUB-Q SCH (10:18)
[2020-06-09 10:24] LABS: C-Reactive Protein 9.3 mg/dL (0.00-1.30)
[2020-06-09] MEDS: dexAMETHasone 4 MG/ML VIAL IV SCH (11:27)
--- NOTE | 2020-06-09 12:53 | Progress Note ---
Assessment and Plan 54 y/o male with acute respiratory failure, secondary to COVID 19 pneumonia and possibly acute renal failure 1. Wean FiO2 for sats >88%, have not been able to do this secondary to elevated oxygen requirements. 2. Agree with steroids as ordered by ID, unfortunately not a candidate for remdesivir given renal function 3. Patient to receive convalescent plasma. 4. Prone as much as tolerated during the day and sleep prone at night 5. Follow up renal recs, NO HD per them 6. overall prognosis is guarded High risk for intubation. Critical care time 31-minute Subjective Date of service: 06/09/20 Principal diagnosis: talia Interval history: Patient remained awake now on continuous BiPAP therapy at 90% FiO2. Unable to prone due to BiPAP Objective Vital Signs - 12hr 06/09/20 06/09/20 06/09/20 01:00 01:30 02:00 Temperature Pulse Rate 89 91 H 93 H Pulse Rate [ From Monitor] Respiratory 35 H 34 H 40 H Rate Blood Pressure 127/87 141/96 141/96 O2 Sat by Pulse 100 100 100 Oximetry 06/09/20 06/09/20 06/09/20 02:30 03:00 03:30 Temperature Pulse Rate 94 H 93 H 95 H Pulse Rate [ From Monitor] Respiratory 33 H 38 H 28 H Rate Blood Pressure 141/96 145/93 139/93 O2 Sat by Pulse 99 100 98 Oximetry 06/09/20 06/09/20 06/09/20 03:49 03:52 04:00 Temperature 98.9 F Pulse Rate 97 H 98 H Pulse Rate [ 102 H From Monitor] Respiratory 46 H 37 H Rate Blood Pressure 141/93 O2 Sat by Pulse 97 97 Oximetry 06/09/20 06/09/20 06/09/20 04:30 05:00 05:30 Temperature Pulse Rate 96 H 101 H 95 H Pulse Rate [ From Monitor] Respiratory 44 H 39 H 39 H Rate Blood Pressure 141/93 141/93 150/98 O2 Sat by Pulse 96 97 94 Oximetry 06/09/20 06/09/20 06/09/20 06:00 06:30 07:00 Temperature Pulse Rate 94 H 94 H 95 H Pulse Rate [ From Monitor] Respiratory 36 H 34 H 43 H Rate Blood Pressure 150/98 155/110 145/110 O2 Sat by Pulse 95 95 95 Oximetry 06/09/20 06/09/2006/09/20 07:30 08:00 08:30 Temperature Pulse Rate 94 H 92 H 100 H Pulse Rate [ 95 H From Monitor] Respiratory 41 H 33 H 36 H Rate Blood Pressure 145/110 149/100 149/100 O2 Sat by Pulse 96 95 94 Oximetry 06/09/20 06/09/20 06/09/20 09:00 09:30 10:01 Temperature Pulse Rate 100 H 141 H 127 H Pulse Rate [ From Monitor] Respiratory 32 H 44 H 46 H Rate Blood Pressure 149/100 149/100 119/80 O2 Sat by Pulse 89 96 98 Oximetry 06/09/20 06/09/20 06/09/20 10:31 11:01 11:31 Temperature Pulse Rate 131 H 131 H 139 H Pulse Rate [ From Monitor] Respiratory 42 H 34 H 41 H Rate Blood Pressure 119/80 150/87 150/87 O2 Sat by Pulse 98 97 98 Oximetry 06/09/20 06/09/20 06/09/20 11:46 11:56 12:00 Temperature 98.0 F 98.2 F Pulse Rate 142 H 111 H Pulse Rate [ 111 H From Monitor] Respiratory 38 H 30 H Rate Blood Pressure 148/95 O2 Sat by Pulse 98 98 Oximetry 06/09/20 12:01 Temperature Pulse Rate 111 H Pulse Rate [ From Monitor] Respiratory 30 H Rate Blood Pressure 148/95 O2 Sat by Pulse 98 Oximetry Constitutional: no acute distress, lethargic, other (Morbidly obese) Eyes: non-icteric ENT: oropharynx moist, other (Crowded oropharynx) Neck: supple Ascultation: Bilateral: diminished breath sounds Cardiovascular: regular rate and rhythm Gastrointestinal: normoactive bowel sounds, non-distended, other (Obese) Integumentary: normal Extremities: no cyanosis Neurologic: non-focal exam CBC and BMP: 06/09/20 01:03 06/09/20 09:21 ABG, PT/INR, D-dimer: PT/INR, D-dimer PT 11.5 Sec. (12.2-14.9) L 05/31/20 15:23 INR 0.83 (0.87-1.13) L 05/31/20 15:23 D-Dimer > 72007 ng/mlDDU (0-234) H 06/09/20 09:21 Abnormal lab findings: Abnormal Labs 05/31/20 05/31/20 05/31/20 15:23 15:23 15:23 WBC RBC MCHC RDW Lymph % (Auto) Lymph # Cassia # Seg Neutrophils % Seg Neuts % (Manual) Lymphocytes % (Manual) Seg Neutrophils # Seg Neutrophils # Man Lymphocytes # (Manual) Monocytes # (Manual) PT INR D-Dimer Sodium Potassium Chloride Carbon Dioxide BUN Creatinine Glucose 280 H POC Glucose Hemoglobin A1c Calcium Ferritin 583.4 H Lactate Dehydrogenase 392 H Total Creatine Kinase 325 H C-Reactive Protein 14.30 H Albumin Tawmm-4-Ctqvsxdfd Qfzju-5-Ydadprwca Beta Globulins PEP Interpretation Urine Creatinine Complement C3 Complement C4 Coronavirus (PCR) 05/31/20 05/31/20 05/31/20 15:23 15:23 15:23 WBC RBC MCHC RDW 15.7 H Lymph % (Auto) 12.9 L Lymph # 1.0 L Cassia # Seg Neutrophils % 81.7 H Seg Neuts % (Manual) Lymphocytes % (Manual) Seg Neutrophils # Seg Neutrophils # Man Lymphocytes # (Manual) Monocytes # (Manual) PT 11.5 L INR 0.83 L D-Dimer Sodium 134 L Potassium Chloride 97.2 L Carbon Dioxide BUN 28 H Creatinine 3.0 H Glucose 279 H POC Glucose Hemoglobin A1c Calcium Ferritin Lactate Dehydrogenase Total Creatine Kinase C-Reactive Protein Albumin 3.3 L Szvye-0-Yllmkqrny Vvrls-9-Neanjqnjn Beta Globulins PEP Interpretation Urine Creatinine Complement C3 Complement C4 Coronavirus (PCR) 05/31/20 05/31/20 05/31/20 16:47 16:49 16:49 WBC RBC MCHC RDW Lymph % (Auto) Lymph # Cassia # Seg Neutrophils % Seg Neuts % (Manual) Lymphocytes % (Manual) Seg Neutrophils # Seg Neutrophils # Man Lymphocytes # (Manual) Monocytes # (Manual) PT INR D-Dimer 738.85 H Sodium Potassium Chloride Carbon Dioxide BUN Creatinine Glucose 258 H POC Glucose 239 H Hemoglobin A1c Calcium Ferritin Lactate Dehydrogenase 409 H Total Creatine Kinase C-Reactive Protein 14.00 H Albumin Lnpdu-4-Xxaxzpwfy Regye-5-Zfpoylbbi Beta Globulins PEP Interpretation Urine Creatinine Complement C3 Complement C4 Coronavirus (PCR) 05/31/20 05/31/20 06/01/20 16:49 16:49 10:15 WBC RBC MCHC RDW Lymph % (Auto) Lymph # Cassia # Seg Neutrophils % Seg Neuts % (Manual) Lymphocytes % (Manual) Seg Neutrophils # Seg Neutrophils # Man Lymphocytes # (Manual) Monocytes # (Manual) PT INR D-Dimer Sodium Potassium Chloride Carbon Dioxide BUN Creatinine Glucose POC Glucose 277 H Hemoglobin A1c 8.5 H Calcium Ferritin 599.0 H Lactate Dehydrogenase Total Creatine Kinase C-Reactive Protein Albumin Gdopr-6-Uueymirdx Jizfl-8-Ylshmcoji Beta Globulins PEP Interpretation Urine Creatinine Complement C3 Complement C4 Coronavirus (PCR) 06/01/20 06/01/20 06/01/20 13:41 13:41 16:10 WBC RBC MCHC RDW 15.3 H Lymph % (Auto) 8.4 L Lymph # 0.9 L Cassia # Seg Neutrophils % 86.9 H Seg Neuts % (Manual) Lymphocytes % (Manual) Seg Neutrophils # 9.3 H Seg Neutrophils # Man Lymphocytes # (Manual) Monocytes # (Manual) PT INR D-Dimer Sodium 136 L Potassium 5.5 H Chloride Carbon Dioxide 20 L BUN 42 H Creatinine 3.5 H Glucose 278 H POC Glucose 372 H Hemoglobin A1c Calcium Ferritin Lactate Dehydrogenase Total Creatine Kinase C-Reactive Protein Albumin Myxsf-3-Qwrryrdel Venix-6-Wttpifrhd Beta Globulins PEP Interpretation Urine Creatinine Complement C3 Complement C4 Coronavirus (PCR) 06/01/20 06/01/20 06/01/20 23:12 Unknown Unknown WBC RBC MCHC RDW Lymph % (Auto) Lymph # Cassia # Seg Neutrophils % Seg Neuts % (Manual) Lymphocytes % (Manual) Seg Neutrophils # Seg Neutrophils # Man Lymphocytes # (Manual) Monocytes # (Manual) PT INR D-Dimer Sodium Potassium Chloride Carbon Dioxide BUN Creatinine Glucose POC Glucose 398 H Hemoglobin A1c Calcium Ferritin Lactate Dehydrogenase Total Creatine Kinase C-Reactive Protein Albumin Jyhvk-8-Wihkowxsi Uxtjn-1-Oxwrkebwl Beta Globulins PEP Interpretation Urine Creatinine 161.6 H Complement C3 Complement C4 Coronavirus (PCR) Positive A 06/02/20 06/02/20 06/02/20 04:55 04:55 05:33 WBC 14.7 H RBC MCHC RDW 15.4 H Lymph % (Auto) 7.1 L Lymph # 1.1 L Cassia # Seg Neutrophils % 89.3 H Seg Neuts % (Manual) Lymphocytes % (Manual) Seg Neutrophils # 13.2 H Seg Neutrophils # Man Lymphocytes # (Manual) Monocytes # (Manual) PT INR D-Dimer Sodium 136 L Potassium Chloride 97.2 L Carbon Dioxide 21 L BUN 47 H Creatinine 3.5 H Glucose 244 H POC Glucose 262 H Hemoglobin A1c Calcium Ferritin Lactate Dehydrogenase Total Creatine Kinase C-Reactive Protein Albumin 3.2 L Uqiqh-2-Rsgmknyld Yliio-2-Ivkyweezt Beta Globulins PEP Interpretation Urine Creatinine Complement C3 Complement C4 Coronavirus (PCR) 06/02/20 06/02/20 06/02/20 10:55 16:49 22:15 WBC RBC MCHC RDW Lymph % (Auto) Lymph # Cassia # Seg Neutrophils % Seg Neuts % (Manual) Lymphocytes % (Manual) Seg Neutrophils # Seg Neutrophils # Man Lymphocytes # (Manual) Monocytes # (Manual) PT INR D-Dimer Sodium Potassium Chloride Carbon Dioxide BUN Creatinine Glucose POC Glucose 160 H 214 H 292 H Hemoglobin A1c Calcium Ferritin Lactate Dehydrogenase Total Creatine Kinase C-Reactive Protein Albumin Nlxfv-5-Gfvomaizp Rwzyb-1-Smuertpxl Beta Globulins PEP Interpretation Urine Creatinine Complement C3 Complement C4 Coronavirus (PCR) 06/02/20 06/03/20 06/03/20 23:47 05:18 05:18 WBC 18.4 H RBC MCHC RDW 15.3 H Lymph % (Auto) Lymph # Cassia # Seg Neutrophils % Seg Neuts % (Manual) 91.0 H Lymphocytes % (Manual) 8.0 L Seg Neutrophils # Seg Neutrophils # Man 16.7 H Lymphocytes # (Manual) Monocytes # (Manual) PT INR D-Dimer Sodium Potassium Chloride Carbon Dioxide 20 L BUN 50 H Creatinine 3.1 H Glucose 248 H POC Glucose 292 H Hemoglobin A1c Calcium Ferritin Lactate Dehydrogenase Total Creatine Kinase C-Reactive Protein Albumin 2.8 L Oefvt-2-Aynkjetrx Vrmvm-8-Mljoxpelk Beta Globulins PEP Interpretation Urine Creatinine Complement C3 Complement C4 Coronavirus (PCR) 06/03/20 06/03/20 06/03/20 05:20 10:39 10:39 WBC RBC MCHC RDW Lymph % (Auto) Lymph # Cassia # Seg Neutrophils % Seg Neuts % (Manual) Lymphocytes % (Manual) Seg Neutrophils # Seg Neutrophils # Man Lymphocytes # (Manual) Monocytes # (Manual) PT INR D-Dimer Sodium Potassium Chloride Carbon Dioxide BUN Creatinine Glucose POC Glucose 208 H Hemoglobin A1c Calcium Ferritin Lactate Dehydrogenase Total Creatine Kinase C-Reactive Protein Albumin Usinv-6-Dpersytrk Gyhor-8-Vzkyqszhi Beta Globulins PEP Interpretation Urine Creatinine Complement C3 223 H Complement C4 64 H Coronavirus (PCR) 06/03/20 06/03/20 06/03/20 11:40 13:06 16:58 WBC RBC MCHC RDW Lymph % (Auto) Lymph # Cassia # Seg Neutrophils % Seg Neuts % (Manual) Lymphocytes % (Manual) Seg Neutrophils # Seg Neutrophils # Man Lymphocytes # (Manual) Monocytes # (Manual) PT INR D-Dimer Sodium Potassium Chloride Carbon Dioxide BUN Creatinine Glucose POC Glucose 180 H 167 H 152 H Hemoglobin A1c Calcium Ferritin Lactate Dehydrogenase Total Creatine Kinase C-Reactive Protein Albumin Icadv-6-Rqvpkequy Bitzv-7-Tnmfhobto Beta Globulins PEP Interpretation Urine Creatinine Complement C3 Complement C4 Coronavirus (PCR) 06/04/20 06/04/20 06/04/20 00:07 04:17 04:17 WBC 20.8 H RBC 5.20 H MCHC RDW 15.7 H Lymph % (Auto) Lymph # Cassia # Seg Neutrophils % Seg Neuts % (Manual) 91.0 H Lymphocytes % (Manual) 4.0 L Seg Neutrophils # Seg Neutrophils # Man 18.9 H Lymphocytes # (Manual) 0.8 L Monocytes # (Manual) 1.0 H PT INR D-Dimer Sodium 135 L Potassium 5.1 H Chloride 97.8 L Carbon Dioxide 20 L BUN 56 H Creatinine 3.1 H Glucose 178 H POC Glucose 206 H Hemoglobin A1c Calcium Ferritin Lactate Dehydrogenase Total Creatine Kinase C-Reactive Protein Albumin 3.0 L Jhwdj-5-Lmadqgikv Eeant-7-Vtnedpqwx Beta Globulins PEP Interpretation Urine Creatinine Complement C3 Complement C4 Coronavirus (PCR) 06/04/20 06/04/20 06/04/20 04:17 05:35 11:08 WBC RBC MCHC RDW Lymph % (Auto) Lymph # Cassia # Seg Neutrophils % Seg Neuts % (Manual) Lymphocytes % (Manual) Seg Neutrophils # Seg Neutrophils # Man Lymphocytes # (Manual) Monocytes # (Manual) PT INR D-Dimer Sodium Potassium Chloride Carbon Dioxide BUN Creatinine Glucose POC Glucose 166 H 159 H Hemoglobin A1c Calcium Ferritin Lactate Dehydrogenase Total Creatine Kinase C-Reactive Protein Albumin 2.6 L Nyhay-4-Sqsfbxsoc 0.5 H Oelac-8-Vzbsmbuyf 1.6 H Beta Globulins 0.6 H PEP Interpretation see below H Urine Creatinine Complement C3 Complement C4 Coronavirus (PCR) 06/04/20 06/05/20 06/05/20 18:06 00:22 04:56 WBC 20.2 H RBC MCHC RDW 15.6 H Lymph % (Auto) 4.7 L Lymph # 0.9 L Cassia # 1.0 H Seg Neutrophils % Seg Neuts % (Manual) Lymphocytes % (Manual) Seg Neutrophils # 18.2 H Seg Neutrophils # Man Lymphocytes # (Manual) Monocytes # (Manual) PT INR D-Dimer Sodium Potassium Chloride Carbon Dioxide BUN Creatinine Glucose POC Glucose 190 H 234 H Hemoglobin A1c Calcium Ferritin Lactate Dehydrogenase Total Creatine Kinase C-Reactive Protein Albumin Vlvna-2-Ymqumeefy Pkzhz-5-Qjjtvtjyp Beta Globulins PEP Interpretation Urine Creatinine Complement C3 Complement C4 Coronavirus (PCR) 06/05/20 06/05/20 06/05/20 04:56 05:43 09:27 WBC RBC MCHC RDW Lymph % (Auto) Lymph # Cassia # Seg Neutrophils % Seg Neuts % (Manual) Lymphocytes % (Manual) Seg Neutrophils # Seg Neutrophils # Man Lymphocytes # (Manual) Monocytes # (Manual) PT INR D-Dimer Sodium Potassium Chloride Carbon Dioxide 21 L BUN 63 H Creatinine 3.0 H Glucose 170 H POC Glucose 156 H 106 H Hemoglobin A1c Calcium Ferritin Lactate Dehydrogenase Total Creatine Kinase C-Reactive Protein Albumin 3.0 L Kejeg-0-Oemgaober Euovf-3-Jipvhvqdi Beta Globulins PEP Interpretation Urine Creatinine Complement C3 Complement C4 Coronavirus (PCR) 06/05/20 06/05/20 06/06/20 15:50 23:36 10:31 WBC 18.3 H RBC MCHC RDW 15.6 H Lymph % (Auto) Lymph # Cassia # Seg Neutrophils % Seg Neuts % (Manual) 90.0 H Lymphocytes % (Manual) 6.0 L Seg Neutrophils # Seg Neutrophils # Man 16.5 H Lymphocytes # (Manual) 1.1 L Monocytes # (Manual) PT INR D-Dimer Sodium Potassium Chloride Carbon Dioxide BUN Creatinine Glucose POC Glucose 197 H 193 H Hemoglobin A1c Calcium Ferritin Lactate Dehydrogenase Total Creatine Kinase C-Reactive Protein Albumin Ubqnk-6-Mjgjunxet Sxwwu-4-Ztoubhmdd Beta Globulins PEP Interpretation Urine Creatinine Complement C3 Complement C4 Coronavirus (PCR) 06/06/20 06/06/20 06/06/20 10:31 12:34 17:34 WBC RBC MCHC RDW Lymph % (Auto) Lymph # Cassia # Seg Neutrophils % Seg Neuts % (Manual) Lymphocytes % (Manual) Seg Neutrophils # Seg Neutrophils # Man Lymphocytes # (Manual) Monocytes # (Manual) PT INR D-Dimer Sodium Potassium Chloride Carbon Dioxide BUN 65 H Creatinine 2.7 H Glucose 61 L POC Glucose 50 L 117 H Hemoglobin A1c Calcium Ferritin Lactate Dehydrogenase Total Creatine Kinase C-Reactive Protein Albumin Rcnju-4-Snzreuflg Uhmqm-9-Jcokwzdix Beta Globulins PEP Interpretation Urine Creatinine Complement C3 Complement C4 Coronavirus (PCR) 06/07/20 06/07/20 06/07/20 04:40 04:40 06:07 WBC 16.3 H RBC MCHC RDW 15.6 H Lymph % (Auto) 4.9 L Lymph # 0.8 L Cassia # 0.9 H Seg Neutrophils % 89.3 H Seg Neuts % (Manual) Lymphocytes % (Manual) Seg Neutrophils # 14.6 H Seg Neutrophils # Man Lymphocytes # (Manual) Monocytes # (Manual) PT INR D-Dimer Sodium Potassium 5.1 H D Chloride Carbon Dioxide BUN 67 H Creatinine 2.6 H Glucose 52 L POC Glucose 45 L Hemoglobin A1c Calcium Ferritin Lactate Dehydrogenase Total Creatine Kinase C-Reactive Protein Albumin Pkjls-2-Dauxrvrwo Iuqei-0-Opxybauaw Beta Globulins PEP Interpretation Urine Creatinine Complement C3 Complement C4 Coronavirus (PCR) 06/07/20 06/07/20 06/07/20 10:34 10:49 12:26 WBC RBC MCHC RDW Lymph % (Auto) Lymph # Cassia # Seg Neutrophils % Seg Neuts % (Manual) Lymphocytes % (Manual) Seg Neutrophils # Seg Neutrophils # Man Lymphocytes # (Manual) Monocytes # (Manual) PT INR D-Dimer Sodium Potassium Chloride Carbon Dioxide BUN Creatinine Glucose POC Glucose 57 L 54 L 192 H Hemoglobin A1c Calcium Ferritin Lactate Dehydrogenase Total Creatine Kinase C-Reactive Protein Albumin Dgxyw-3-Ozeosjecl Tvubm-0-Zxpzkprsq Beta Globulins PEP Interpretation Urine Creatinine Complement C3 Complement C4 Coronavirus (PCR) 06/07/20 06/08/20 06/08/20 17:42 00:12 04:52 WBC 18.8 H RBC MCHC RDW 15.6 H Lymph % (Auto) 4.6 L Lymph # 0.9 L Cassia # 1.0 H Seg Neutrophils % 89.7 H Seg Neuts % (Manual) Lymphocytes % (Manual) Seg Neutrophils # 16.9 H Seg Neutrophils # Man Lymphocytes # (Manual) Monocytes # (Manual) PT INR D-Dimer Sodium Potassium Chloride Carbon Dioxide BUN Creatinine Glucose POC Glucose 241 H 285 H Hemoglobin A1c Calcium Ferritin Lactate Dehydrogenase Total Creatine Kinase C-Reactive Protein Albumin Ivksh-8-Tfifzmbwi Gxlpq-9-Uhflcqswv Beta Globulins PEP Interpretation Urine Creatinine Complement C3 Complement C4 Coronavirus (PCR) 06/08/20 06/08/20 06/08/20 04:52 05:41 12:44 WBC RBC MCHC RDW Lymph % (Auto) Lymph # Cassia # Seg Neutrophils % Seg Neuts % (Manual) Lymphocytes % (Manual) Seg Neutrophils # Seg Neutrophils # Man Lymphocytes # (Manual) Monocytes # (Manual) PT INR D-Dimer Sodium Potassium Chloride Carbon Dioxide BUN 66 H Creatinine 2.6 H Glucose 175 H POC Glucose 177 H 172 H Hemoglobin A1c Calcium Ferritin Lactate Dehydrogenase Total Creatine Kinase C-Reactive Protein Albumin Vhgco-7-Rgkdcsadw Gdhlu-6-Byvtnernj Beta Globulins PEP Interpretation Urine Creatinine Complement C3 Complement C4 Coronavirus (PCR) 06/08/20 06/09/20 06/09/20 23:39 01:03 01:03 WBC 19.6 H RBC MCHC 36 H RDW 15.5 H Lymph % (Auto) 5.3 L Lymph # 1.0 L Cassia # Seg Neutrophils % Seg Neuts % (Manual) Lymphocytes % (Manual) Seg Neutrophils # 17.7 H Seg Neutrophils # Man Lymphocytes # (Manual) Monocytes # (Manual) PT INR D-Dimer Sodium 136 L Potassium Chloride Carbon Dioxide 20 L BUN 68 H Creatinine 2.7 H Glucose 180 H POC Glucose 196 H Hemoglobin A1c Calcium 8.3 L Ferritin Lactate Dehydrogenase Total Creatine Kinase C-Reactive Protein Albumin 2.6 L Vhqck-8-Szffhzbrk Prapw-1-Sawmmapdi Beta Globulins PEP Interpretation Urine Creatinine Complement C3 Complement C4 Coronavirus (PCR) 06/09/20 06/09/20 06/09/20 05:42 06:02 09:21 WBC RBC MCHC RDW Lymph % (Auto) Lymph # Cassia # Seg Neutrophils % Seg Neuts % (Manual) Lymphocytes % (Manual) Seg Neutrophils # Seg Neutrophils # Man Lymphocytes # (Manual) Monocytes # (Manual) PT INR D-Dimer > 75416 H Sodium Potassium Chloride Carbon Dioxide 20 L BUN 66 H Creatinine 2.7 H Glucose 141 H POC Glucose 136 H Hemoglobin A1c Calcium Ferritin Lactate Dehydrogenase Total Creatine Kinase C-Reactive Protein Albumin Ggpxr-0-Fofldjlug Lvpjp-4-Piqcglqdo Beta Globulins PEP Interpretation Urine Creatinine Complement C3 Complement C4 Coronavirus (PCR) 06/09/20 06/09/20 06/09/20 09:21 09:21 10:26 WBC RBC MCHC RDW Lymph % (Auto) Lymph # Cassia # Seg Neutrophils % Seg Neuts % (Manual) Lymphocytes % (Manual) Seg Neutrophils # Seg Neutrophils # Man Lymphocytes # (Manual) Monocytes # (Manual) PT INR D-Dimer Sodium Potassium Chloride Carbon Dioxide BUN Creatinine Glucose 195 H POC Glucose 178 H Hemoglobin A1c Calcium Ferritin 1045.0 H Lactate Dehydrogenase 461 H Total Creatine Kinase C-Reactive Protein 9.30 H Albumin Tgkxu-5-Dqavgujaa Blfsx-8-Anhdebdvn Beta Globulins PEP Interpretation Urine Creatinine Complement C3 Complement C4 Coronavirus (PCR)
[2020-06-09] MEDS ORDERED: ENOXAPARIN 100 MG/1 ML INJ SUB-Q ONE (13:41)
[2020-06-09] MEDS ORDERED: METOPROLOL TARTRATE 5 MG/5 ML INJ IV SCH (14:00)
[2020-06-09 14:29] LABS: ANA Screen, IFA Negative (Negative)
--- NOTE | 2020-06-09 14:46 | Consultation ---
History of Present Illness Consult date: 06/09/20 Requesting physician: DERIK VALERA Consult reason: atrial fibrillation (AF with RVR) History of present illness: Pt is a 54 y.o. male, previously unknown to our practice, who originally presented with complaints of SOB. He was found to have damon infiltrates on CXR and subsequently tested positive for COVID-19. Pt is currently being treated for COVID-19 PNA. Cardiology has been consulted for eval and mgmt of AF with RVR. Tele reviewed - currently AF 130-140s. On BiPAP. No previous cardiac workup available for review. Past History Past Medical History: diabetes, hypertension, hyperlipidemia, renal failure Past Surgical History: No surgical history Social history: no significant social history, full code Family history: no significant family history Medications and Allergies Allergies Allergy/AdvReac Type Severity Reaction Status Date / Time lisinopril Allergy Angioedema Verified 05/31/20 13:03 Penicillins Allergy Hives Verified 05/31/20 13:03 Home Medications Medication Instructions Recorded Confirmed Last Taken Type Acetaminophen [Acetaminophen TAB] 650 mg PO Q4H PRN #30 tablet 02/15/17 Unknown Rx AtorvaSTATin [Lipitor] 20 mg PO QHS tablet 02/15/17 Unknown Rx Cipro/Dexameth 0.3/0.1% [Ciprodex 4 drops AU BID bottle 02/15/17 Unknown Rx OTIC] Detemir (Nf) [Levemir (Nf)] 100 units SUB-Q QHS units 02/15/17 Unknown Rx Dextrose 50% in Water [D50W (25GM) 50 ml IV PRN PRN #30 syringe 02/15/17 Unknown Rx Syringe] Enoxaparin 40 mg SUB-Q QDAY syringe 02/15/17 Unknown Rx Lipase/Protease/Amylase [Pancreaze 1 each FEEDTUBE PRN PRN #30 capsule 02/15/[address],500 Unit] Metoprolol [Lopressor TAB] 25 mg PO BID tablet 02/15/17 Unknown Rx Metoprolol [Lopressor TAB] 25 mg PO BID #60 tablet 02/15/17 Unknown Rx Ondansetron [Zofran INJ] 4 mg IV Q8H PRN #30 vial 02/15/17 Unknown Rx Prednisone [predniSONE 5 mg (6-Day 5 mg PO .TAPER #1 tab.ds.pk 02/15/17 Unknown Rx Pack, 21 Tabs)] Simple Syrup 15 ml FEEDTUBE PRN PRN #30 02/15/17 Unknown Rx oral.liqd Simple Syrup 30 ml FEEDTUBE PRN PRN #30 02/15/17 Unknown Rx oral.liqd Sodium Bicarbonate 325 mg FEEDTUBE PRN PRN #30 tablet 02/15/17 Unknown Rx amLODIPine 10 mg PO DAILY tablet 02/15/17 Unknown Rx amLODIPine [Norvasc] 10 mg PO DAILY #30 tab 02/15/17 Unknown Rx bisacodyL [Dulcolax suppos] 10 mg MN QDAY PRN #30 supp.rect 02/15/17 Unknown Rx chlorproMAZINE [Thorazine] 10 mg PO Q6H PRN #30 tablet 02/15/17 Unknown Rx dexAMETHasone [Decadron] 6 mg IV Q6HR vial 02/15/17 Unknown Rx hydrALAZINE [Apresoline INJ] 10 mg IV Q6HR PRN #30 vial 02/15/17 Unknown Rx oxyCODONE /ACETAMINOPHEN [Percocet 1 tab PO Q4H PRN #30 tablet 02/15/17 Unknown Rx 5/325 mg] oxyCODONE /ACETAMINOPHEN [Percocet 1 tab PO Q4HR #30 tab 02/15/17 Unknown Rx 5/325] tiZANidine [Zanaflex 4mg TAB] 4 mg PO Q8H PRN #30 tablet 02/15/17 Unknown Rx Permethrin 5% [Acticin 5% CREAM] 1 applicatio TP ONCE #1 tube 06/11/17 Unknown Rx Azithromycin [Zithromax Z-BENJIE] 250 mg PO DAILY 1 Days tab 11/23/18 Unknown Rx Ondansetron [Zofran Odt] 4 mg PO Q8HR PRN #14 tab.rapdis 11/23/18 Unknown Rx traMADoL [Ultram 50 MG tab] 50 mg PO Q4HR PRN #14 tablet 11/23/18 Unknown Rx Active Meds: Active Medications Acetaminophen (Tylenol) 650 mg PO Q6H PRN PRN Reason: Pain MILD(1-3)/Fever >100.5/LEBRON Albuterol (Proventil) 2.5 mg IH Q3HRT PRN PRN Reason: Shortness Of Breath Atorvastatin Calcium (Lipitor) 20 mg PO QHS CHERI Last Admin: 06/08/20 21:26 Dose: 20 mg Documented by: Bisacodyl (Dulcolax) 10 mg MN QDAY PRN PRN Reason: Constipation unrelieved by MOM Chlorpromazine HCl (Thorazine) 10 mg PO Q6H PRN PRN Reason: Hiccups Dexamethasone (Decadron) 6 mg IV DAILY [facility] Stop: 06/11/20 11:59 Last Admin: 06/09/20 11:27 Dose: 6 mg Documented by: Dextrose (D50w (25gm) Syringe) 50 ml IV Q30MIN PRN; Protocol PRN Reason: Hypoglycemia Last Admin: 06/07/20 10:48 Dose: 20 ml Documented by: Diltiazem HCl (Cardizem) 60 mg PO TID [facility] Enoxaparin Sodium (Enoxaparin) 100 mg SUB-Q Q12HR [facility] Insulin Glargine (Lantus) 8 units SUB-Q QHS [facility] Last Admin: 06/08/20 21:25 Dose: 8 units Documented by: Insulin Human Lispro (Humalog) 0 unit SUB-Q Q6H [facility]; Protocol Last Admin: 06/09/20 10:16 Dose: 3 unit Documented by: Metoprolol Tartrate (Metoprolol) 5 mg IV Q6HR [facility] Last Admin: 06/09/20 13:58 Dose: 5 mg Documented by: Naloxone HCl (Naloxone) 0.1 mg IV Q2MIN PRN PRN Reason: Res Rate </= 8 or 02 SAT < 92% Ondansetron HCl (Zofran) 4 mg IV Q8H PRN PRN Reason: N/V unrelieved by Reglan Oxycodone/Acetaminophen (Percocet 5/325) 1 tab PO Q6H PRN PRN Reason: Pain, Moderate (4-6) Last Admin: 06/03/20 00:57 Dose: 1 tab Documented by: Sodium Chloride (Sodium Chloride Flush Syringe 10 Ml) 10 ml IV BID [facility] Last Admin: 06/09/20 10:18 Dose: 10 ml Documented by: Sodium Chloride (Sodium Chloride Flush Syringe 10 Ml) 10 ml IV PRN PRN PRN Reason: LINE FLUSH Tizanidine HCl (Zanaflex) 4 mg PO Q8H PRN PRN Reason: Muscle Spasm Last Admin: 06/08/20 21:47 Dose: 4 mg Documented by: Review of Systems Constitutional: fatigue, no fever, no chills, no sweats Ears, nose, mouth and throat: no nasal congestion, no sore throat Cardiovascular: shortness of breath, dyspnea on exertion, no chest pain, no orthopnea, no palpitations, no edema, no syncope, no lightheadedness, no paroxysmal nocturnal dyspnea, no claudication Respiratory: cough, shortness of breath, dyspnea on exertion Gastrointestinal: no abdominal pain, no nausea, no vomiting, no diarrhea, no constipation Genitourinary Male: no dysuria, no flank pain Musculoskeletal: no neck stiffness, no neck pain, no myalgias Integumentary: no rash Neurological: no paralysis, no parathesias, no numbness, no tingling, no seizures, no syncope, no vertigo, no headaches Endocrine: no cold intolerance, no heat intolerance Hematologic/Lymphatic: no easy bruising, no easy bleeding Allergic/Immunologic: no urticaria Physical Examination Last Vital Signs Temp 98.2 F 06/09/20 12:00 Pulse 130 H 06/09/20 13:58 Resp 34 H 06/09/20 13:31 BP 147/88 06/09/20 13:58 Pulse Ox 98 06/09/20 13:31 Narrative exam: Exam deferred due to COVID-19 infection (exposure reduction and PPE conservation). Recommendations have been provided based on chart review and provider discussions. 35 mins spent in discussions with pt/family via phone, chart review, plan formation, and consultation with referring provider. Results 06/09/20 01:03 06/09/20 09:21 Cardiac Enzymes 06/09/20 06/09/20 Range/Units 01:03 09:21 AST 22 (5-40) units/L Lactate Dehydrogenase 461 H (91-180) units/L CBC 06/09/20 Range/Units 01:03 WBC 19.6 H (4.5-11.0) K/mm3 RBC 4.66 (3.65-5.03) M/mm3 Hgb 14.1 (11.8-15.2) gm/dl Hct 39.7 (35.5-45.6) % Plt Count 254 (140-440) K/mm3 Lymph # 1.0 L (1.2-5.4) K/mm3 [place] # 0.8 (0.0-0.8) K/mm3 Eos # 0.0 (0.0-0.4) K/mm3 Baso # 0.0 (0.0-0.1) K/mm3 Comprehensive Metabolic Panel 06/09/20 06/09/20 06/09/20 Range/Units 01:03 05:42 09:21 Sodium 136 L 138 (137-145) mmol/L Potassium 4.8 4.8 (3.6-5.0) mmol/L Chloride 98.6 101.5 (98-107) mmol/L Carbon Dioxide 20 L 20 L (22-30) mmol/L BUN 68 H 66 H (9-20) mg/dL Creatinine 2.7 H 2.7 H (0.8-1.3) mg/dL Glucose 180 H 141 H 195 H (75-100) mg/dL Calcium 8.3 L 8.8 (8.4-10.2) mg/dL AST 22 (5-40) units/L ALT 29 (7-56) units/L Alkaline Phosphatase 114 (35-129) units/L Total Protein 6.5 (6.3-8.2) g/dL Albumin 2.6 L (3.9-5) g/dL - Imaging and Cardiology Echo: pending EKG: report reviewed, image reviewed - EKG Interpretation EKG: no acute changes EKG interpretations - Telemetry EKG Rhythm: Atrial Fibrillation - EKG Supraventricular dysrhythmia: atrial fibrillation Assessment and Plan Initiate PO Cardizem 60mg TID. D/c Amlodipine. Cont PRN IV Lopressor as needed for optimal rate control. Cont Lovenox for now. Will consider transition to OAC when clinically stable. Chest CTA when stable. Will obtain echo upon resolution of COVID-19 infection. Pt seen in conjunction with Dr. Smith, who agrees with the assessment and plan of care. - Patient Problems (1) Acute respiratory failure with hypoxia Current Visit: Yes Status: Acute (2) Pneumonia due to COVID-19 virus Current Visit: Yes Status: Acute (3) Paroxysmal atrial fibrillation with RVR Current Visit: Yes Status: Acute (4) Elevated d-dimer Current Visit: Yes Status: Acute (5) Acute kidney injury superimposed on CKD Current Visit: Yes Status: Acute (6) HTN (hypertension) Current Visit: Yes Status: Chronic Qualifiers: Hypertension type: essential hypertension Qualified Code(s): I10 - Essential (primary) hypertension (7) Diabetes Current Visit: Yes Status: Chronic Qualifiers: Diabetes mellitus type: type 2 Diabetes mellitus detention insulin use: with detention use Diabetes mellitus complication status: with hyperglycemia Qualified Code(s): E11.65 - Type 2 diabetes mellitus with hyperglycemia; Z79.4 - MCC (current) use of insulin
[2020-06-09] MEDS: dilTIAZem 60 MG TAB PO SCH ×2 (15:39→21:02)
[2020-06-09] MEDS: METOPROLOL TARTRATE 5 MG/5 ML INJ IV PRN (20:39)
[2020-06-09] MEDS ORDERED: ENOXAPARIN 100 MG/1 ML INJ SUB-Q SCH (22:00)
[2020-06-09] MEDS: INSULIN GLARGINE 100 UNITS/ML SUB-Q SCH (22:42)
[2020-06-10 01:28] LABS: Hematocrit 43.3 % (35.5-45.6); Hemoglobin 14.7 gm/dl (11.8-15.2); Mean Corpuscular HGB Conc 34 % (32-34); Mean Corpuscular Volume 87 fl (84-94); Platelet Count 248 K/mm3 (140-440); Red Blood Count 4.96 M/mm3 (3.65-5.03); Red Cell Distribution Width 15.6 % (13.2-15.2)
[2020-06-10 01:47] LABS: Albumin 2.9 g/dL (3.9-5); Calcium 8.8 mg/dL (8.4-10.2)
[2020-06-10 03:17] LABS: Band Neutrophils # (Manual) 0.2 K/mm3; Basophils % (Manual) 0 % (0.0-1.8); Eosinophils % (Manual) 0 % (0.0-4.3); Total Cells Counted 100
--- NOTE | 2020-06-10 03:20 | XRay Report ---
CHEST 1 VIEW INDICATION: pneumonia COMPARISON: 05/31/2020 FINDINGS: SUPPORT DEVICES: None. HEART / MEDIASTINUM: No significant abnormality. LUNGS / PLEURA: Persistent bilateral pulmonary process with patchy airspace component. No pneumothora x. ADDITIONAL FINDINGS: IMPRESSION: 1. Persistent bilateral pulmonary process with improved aeration as compared to previous exam Signer Name: Giuseppe Clifton MD Signed: 06/10/2020 3:16 AM Workstation Name: [id number]
[2020-06-10 03:25] LABS: Platelet Estimate Consistent w Auto; RBC Morphology Normal
[2020-06-10] MEDS: METOPROLOL TARTRATE 5 MG/5 ML INJ IV PRN ×2 (04:19→17:53)
[2020-06-10] MEDS: INSULIN LISPRO 100 UNIT/ML VIAL 3 mL SUB-Q SCH ×4 (05:12→22:22)
[2020-06-10 05:20] LABS: Calcium 9.1 mg/dL (8.4-10.2)
--- NOTE | 2020-06-10 08:00 | Progress Note ---
Assessment and Plan 54 y/o male with acute respiratory failure, secondary to COVID 19 pneumonia and possibly acute renal failure 1. Wean FiO2 for sats >88%, 2. Agree with steroids as ordered by ID, unfortunately not a candidate for remdesivir given renal function 3. Prone as much as tolerated during the day and sleep prone at night 4. Follow up renal recs, NO HD per them 5. Now with afib with RVR, reviewed cardiology note. Rate better but still not controlled. Has room to increase in regards to blood pressure. Will defer to them. High risk for intubation. Subjective Date of service: 06/10/20 Principal diagnosis: talia Interval history: No acute events Down to 80% fiO2. Cr at 2.8 today. Per charting made 450ml the last 24 hours. Objective Vital Signs - 12hr 06/09/20 06/09/20 06/09/20 20:00 20:31 20:39 Temperature 98.0 F Pulse Rate 124 H 130 H 127 H Pulse Rate [ 142 H From Monitor] Respiratory 26 H 25 H Rate Blood Pressure 137/97 137/97 137/97 O2 Sat by Pulse 99 91 Oximetry 06/09/20 06/09/20 06/09/20 21:01 21:31 21:57 Temperature Pulse Rate 102 H 93 H 28 L Pulse Rate [ From Monitor] Respiratory 39 H 38 H Rate Blood Pressure 134/87 134/87 140/86 O2 Sat by Pulse 100 100 98 Oximetry 06/09/20 06/09/20 06/09/20 22:00 22:22 22:31 Temperature Pulse Rate 107 H 120 H 106 H Pulse Rate [ From Monitor] Respiratory 39 H 35 H 43 H Rate Blood Pressure 140/86 137/97 140/86 O2 Sat by Pulse 99 99 99 Oximetry 06/09/20 06/09/20 06/09/20 22:53 23:00 23:01 Temperature Pulse Rate 108 H 108 H Pulse Rate [ From Monitor] Respiratory 34 H 42 H Rate Blood Pressure 140/86 146/84 O2 Sat by Pulse 98 95 98 Oximetry 06/09/20 06/10/20 06/10/20 23:31 00:00 00:31 Temperature 98.7 F Pulse Rate 130 H 122 H 114 H Pulse Rate [ 124 H From Monitor] Respiratory 41 H 40 H 30 H Rate Blood Pressure 146/84 139/89 139/89 O2 Sat by Pulse 97 100 100 Oximetry 06/10/20 06/10/20 06/10/20 00:46 01:01 01:31 Temperature Pulse Rate 127 H 111 H 121 H Pulse Rate [ From Monitor] Respiratory 41 H 37 H 36 H Rate Blood Pressure 139/89 139/89 121/89 O2 Sat by Pulse 99 91 100 Oximetry 06/10/20 06/10/20 06/10/20 02:01 02:31 03:01 Temperature Pulse Rate 123 H 133 H 125 H Pulse Rate [ From Monitor] Respiratory 38 H 42 H 38 H Rate Blood Pressure 128/99 128/99 135/105 O2 Sat by Pulse 94 99 97 Oximetry 06/10/20 06/10/20 06/10/20 03:31 04:00 04:19 Temperature 98.5 F Pulse Rate 115 H 121 H 122 H Pulse Rate [ 136 H From Monitor] Respiratory 21 46 H Rate Blood Pressure 128/99 134/111 134/111 O2 Sat by Pulse 97 97 Oximetry 06/10/20 06/10/20 06/10/20 04:31 05:01 05:04 Temperature Pulse Rate 108 H 123 H Pulse Rate [ From Monitor] Respiratory 42 H 39 H Rate Blood Pressure 135/105 143/115 O2 Sat by Pulse 98 98 98 Oximetry 06/10/20 06/10/20 06/10/20 05:05 05:31 06:00 Temperature Pulse Rate 112 H 115 H 104 H Pulse Rate [ From Monitor] Respiratory 33 H 42 H 45 H Rate Blood Pressure 143/115 143/115 149/89 O2 Sat by Pulse 98 97 92 Oximetry 06/10/20 06:31 Temperature Pulse Rate 111 H Pulse Rate [ From Monitor] Respiratory 45 H Rate Blood Pressure 143/115 O2 Sat by Pulse 98 Oximetry Constitutional: no acute distress, lethargic, other (Morbidly obese) Eyes: non-icteric ENT: oropharynx moist, other (Crowded oropharynx) Neck: supple Ascultation: Bilateral: diminished breath sounds Cardiovascular: regular rate and rhythm Gastrointestinal: normoactive bowel sounds, non-distended, other (Obese) Integumentary: normal Extremities: no cyanosis Neurologic: non-focal exam CBC and BMP: 06/10/20 00:34 06/10/20 04:42 ABG, PT/INR, D-dimer: PT/INR, D-dimer PT 11.5 Sec. (12.2-14.9) L 05/31/20 15:23 INR 0.83 (0.87-1.13) L 05/31/20 15:23 D-Dimer > 56139 ng/mlDDU (0-234) H 06/09/20 09:21 Abnormal lab findings: Abnormal Labs 05/31/20 05/31/20 05/31/20 15:23 15:23 15:23 WBC RBC MCHC RDW Lymph % (Auto) Lymph # [place] # Seg Neutrophils % Seg Neuts % (Manual) Lymphocytes % (Manual) Seg Neutrophils # Seg Neutrophils # Man Lymphocytes # (Manual) Monocytes # (Manual) PT INR D-Dimer Sodium Potassium Chloride Carbon Dioxide BUN Creatinine Glucose 280 H POC Glucose Hemoglobin A1c Calcium Ferritin 583.4 H Alkaline Phosphatase Lactate Dehydrogenase 392 H Total Creatine Kinase 325 H C-Reactive Protein 14.30 H Albumin Rybcz-0-Qxgodcynq Fjqmv-2-Btfzwivni Beta Globulins PEP Interpretation Urine Creatinine Complement C3 Complement C4 Coronavirus (PCR) 05/31/20 05/31/20 05/31/20 15:23 15:23 15:23 WBC RBC MCHC RDW 15.7 H Lymph % (Auto) 12.9 L Lymph # 1.0 L [place] # Seg Neutrophils % 81.7 H Seg Neuts % (Manual) Lymphocytes % (Manual) Seg Neutrophils # Seg Neutrophils # Man Lymphocytes # (Manual) Monocytes # (Manual) PT 11.5 L INR 0.83 L D-Dimer Sodium 134 L Potassium Chloride 97.2 L Carbon Dioxide BUN 28 H Creatinine 3.0 H Glucose 279 H POC Glucose Hemoglobin A1c Calcium Ferritin Alkaline Phosphatase Lactate Dehydrogenase Total Creatine Kinase C-Reactive Protein Albumin 3.3 L Gligl-5-Thexwpacy Cfhjn-7-Oaavtgwqe Beta Globulins PEP Interpretation Urine Creatinine Complement C3 Complement C4 Coronavirus (PCR) 05/31/20 05/31/20 05/31/20 16:47 16:49 16:49 WBC RBC MCHC RDW Lymph % (Auto) Lymph # [place] # Seg Neutrophils % Seg Neuts % (Manual) Lymphocytes % (Manual) Seg Neutrophils # Seg Neutrophils # Man Lymphocytes # (Manual) Monocytes # (Manual) PT INR D-Dimer 738.85 H Sodium Potassium Chloride Carbon Dioxide BUN Creatinine Glucose 258 H POC Glucose 239 H Hemoglobin A1c Calcium Ferritin Alkaline Phosphatase Lactate Dehydrogenase 409 H Total Creatine Kinase C-Reactive Protein 14.00 H Albumin Ebkdv-9-Qigcurvek Xtbly-8-Xifeehvxv Beta Globulins PEP Interpretation Urine Creatinine Complement C3 Complement C4 Coronavirus (PCR) 05/31/20 05/31/20 06/01/20 16:49 16:49 10:15 WBC RBC MCHC RDW Lymph % (Auto) Lymph # [place] # Seg Neutrophils % Seg Neuts % (Manual) Lymphocytes % (Manual) Seg Neutrophils # Seg Neutrophils # Man Lymphocytes # (Manual) Monocytes # (Manual) PT INR D-Dimer Sodium Potassium Chloride Carbon Dioxide BUN Creatinine Glucose POC Glucose 277 H Hemoglobin A1c 8.5 H Calcium Ferritin 599.0 H Alkaline Phosphatase Lactate Dehydrogenase Total Creatine Kinase C-Reactive Protein Albumin Nmfkt-4-Qmlsnazgn Fdrdf-1-Wpjjhwech Beta Globulins PEP Interpretation Urine Creatinine Complement C3 Complement C4 Coronavirus (PCR) 06/01/20 06/01/20 06/01/20 13:41 13:41 16:10 WBC RBC MCHC RDW 15.3 H Lymph % (Auto) 8.4 L Lymph # 0.9 L [place] # Seg Neutrophils % 86.9 H Seg Neuts % (Manual) Lymphocytes % (Manual) Seg Neutrophils # 9.3 H Seg Neutrophils # Man Lymphocytes # (Manual) Monocytes # (Manual) PT INR D-Dimer Sodium 136 L Potassium 5.5 H Chloride Carbon Dioxide 20 L BUN 42 H Creatinine 3.5 H Glucose 278 H POC Glucose 372 H Hemoglobin A1c Calcium Ferritin Alkaline Phosphatase Lactate Dehydrogenase Total Creatine Kinase C-Reactive Protein Albumin Psitn-8-Ccpiiaakk Knrzm-6-Cfjmyqujq Beta Globulins PEP Interpretation Urine Creatinine Complement C3 Complement C4 Coronavirus (PCR) 06/01/20 06/01/20 06/01/20 23:12 Unknown Unknown WBC RBC MCHC RDW Lymph % (Auto) Lymph # [place] # Seg Neutrophils % Seg Neuts % (Manual) Lymphocytes % (Manual) Seg Neutrophils # Seg Neutrophils # Man Lymphocytes # (Manual) Monocytes # (Manual) PT INR D-Dimer Sodium Potassium Chloride Carbon Dioxide BUN Creatinine Glucose POC Glucose 398 H Hemoglobin A1c Calcium Ferritin Alkaline Phosphatase Lactate Dehydrogenase Total Creatine Kinase C-Reactive Protein Albumin Wvbxt-3-Bbkqtbcty Cspqz-5-Yjhqqmlwr Beta Globulins PEP Interpretation Urine Creatinine 161.6 H Complement C3 Complement C4 Coronavirus (PCR) Positive A 06/02/20 06/02/20 06/02/20 04:55 04:55 05:33 WBC 14.7 H RBC MCHC RDW 15.4 H Lymph % (Auto) 7.1 L Lymph # 1.1 L [place] # Seg Neutrophils % 89.3 H Seg Neuts % (Manual) Lymphocytes % (Manual) Seg Neutrophils # 13.2 H Seg Neutrophils # Man Lymphocytes # (Manual) Monocytes # (Manual) PT INR D-Dimer Sodium 136 L Potassium Chloride 97.2 L Carbon Dioxide 21 L BUN 47 H Creatinine 3.5 H Glucose 244 H POC Glucose 262 H Hemoglobin A1c Calcium Ferritin Alkaline Phosphatase Lactate Dehydrogenase Total Creatine Kinase C-Reactive Protein Albumin 3.2 L Lhtne-2-Yonatfhuz Mksgm-7-Webwflhxk Beta Globulins PEP Interpretation Urine Creatinine Complement C3 Complement C4 Coronavirus (PCR) 06/02/20 06/02/20 06/02/20 10:55 16:49 22:15 WBC RBC MCHC RDW Lymph % (Auto) Lymph # [place] # Seg Neutrophils % Seg Neuts % (Manual) Lymphocytes % (Manual) Seg Neutrophils # Seg Neutrophils # Man Lymphocytes # (Manual) Monocytes # (Manual) PT INR D-Dimer Sodium Potassium Chloride Carbon Dioxide BUN Creatinine Glucose POC Glucose 160 H 214 H 292 H Hemoglobin A1c Calcium Ferritin Alkaline Phosphatase Lactate Dehydrogenase Total Creatine Kinase C-Reactive Protein Albumin Itzpj-3-Cvuadieeg Fidgp-1-Cvrwvrjwn Beta Globulins PEP Interpretation Urine Creatinine Complement C3 Complement C4 Coronavirus (PCR) 06/02/20 06/03/20 06/03/20 23:47 05:18 05:18 WBC 18.4 H RBC MCHC RDW 15.3 H Lymph % (Auto) Lymph # [place] # Seg Neutrophils % Seg Neuts % (Manual) 91.0 H Lymphocytes % (Manual) 8.0 L Seg Neutrophils # Seg Neutrophils # Man 16.7 H Lymphocytes # (Manual) Monocytes # (Manual) PT INR D-Dimer Sodium Potassium Chloride Carbon Dioxide 20 L BUN 50 H Creatinine 3.1 H Glucose 248 H POC Glucose 292 H Hemoglobin A1c Calcium Ferritin Alkaline Phosphatase Lactate Dehydrogenase Total Creatine Kinase C-Reactive Protein Albumin 2.8 L Kuigx-3-Lvgzzztal Isawv-6-Ruuraypql Beta Globulins PEP Interpretation Urine Creatinine Complement C3 Complement C4 Coronavirus (PCR) 06/03/20 06/03/20 06/03/20 05:20 10:39 10:39 WBC RBC MCHC RDW Lymph % (Auto) Lymph # [place] # Seg Neutrophils % Seg Neuts % (Manual) Lymphocytes % (Manual) Seg Neutrophils # Seg Neutrophils # Man Lymphocytes # (Manual) Monocytes # (Manual) PT INR D-Dimer Sodium Potassium Chloride Carbon Dioxide BUN Creatinine Glucose POC Glucose 208 H Hemoglobin A1c Calcium Ferritin Alkaline Phosphatase Lactate Dehydrogenase Total Creatine Kinase C-Reactive Protein Albumin Mzrny-9-Ligndldic Srckl-0-Kldffqgph Beta Globulins PEP Interpretation Urine Creatinine Complement C3 223 H Complement C4 64 H Coronavirus (PCR) 06/03/20 06/03/20 06/03/20 11:40 13:06 16:58 WBC RBC MCHC RDW Lymph % (Auto) Lymph # [place] # Seg Neutrophils % Seg Neuts % (Manual) Lymphocytes % (Manual) Seg Neutrophils # Seg Neutrophils # Man Lymphocytes # (Manual) Monocytes # (Manual) PT INR D-Dimer Sodium Potassium Chloride Carbon Dioxide BUN Creatinine Glucose POC Glucose 180 H 167 H 152 H Hemoglobin A1c Calcium Ferritin Alkaline Phosphatase Lactate Dehydrogenase Total Creatine Kinase C-Reactive Protein Albumin Zpfrs-8-Afvtjnykq Psjum-2-Rjzbhbqiw Beta Globulins PEP Interpretation Urine Creatinine Complement C3 Complement C4 Coronavirus (PCR) 06/04/20 06/04/20 06/04/20 00:07 04:17 04:17 WBC 20.8 H RBC 5.20 H MCHC RDW 15.7 H Lymph % (Auto) Lymph # [place] # Seg Neutrophils % Seg Neuts % (Manual) 91.0 H Lymphocytes % (Manual) 4.0 L Seg Neutrophils # Seg Neutrophils # Man 18.9 H Lymphocytes # (Manual) 0.8 L Monocytes # (Manual) 1.0 H PT INR D-Dimer Sodium 135 L Potassium 5.1 H Chloride 97.8 L Carbon Dioxide 20 L BUN 56 H Creatinine 3.1 H Glucose 178 H POC Glucose 206 H Hemoglobin A1c Calcium Ferritin Alkaline Phosphatase Lactate Dehydrogenase Total Creatine Kinase C-Reactive Protein Albumin 3.0 L Tipze-0-Gdftufhjd Ctrmz-9-Eoycvernt Beta Globulins PEP Interpretation Urine Creatinine Complement C3 Complement C4 Coronavirus (PCR) 06/04/20 06/04/20 06/04/20 04:17 05:35 11:08 WBC RBC MCHC RDW Lymph % (Auto) Lymph # [place] # Seg Neutrophils % Seg Neuts % (Manual) Lymphocytes % (Manual) Seg Neutrophils # Seg Neutrophils # Man Lymphocytes # (Manual) Monocytes # (Manual) PT INR D-Dimer Sodium Potassium Chloride Carbon Dioxide BUN Creatinine Glucose POC Glucose 166 H 159 H Hemoglobin A1c Calcium Ferritin Alkaline Phosphatase Lactate Dehydrogenase Total Creatine Kinase C-Reactive Protein Albumin 2.6 L Xcbql-7-Ahciqgzyb 0.5 H Xangl-1-Zfeyqqygj 1.6 H Beta Globulins 0.6 H PEP Interpretation see below H Urine Creatinine Complement C3 Complement C4 Coronavirus (PCR) 06/04/20 06/05/20 06/05/20 18:06 00:22 04:56 WBC 20.2 H RBC MCHC RDW 15.6 H Lymph % (Auto) 4.7 L Lymph # 0.9 L [place] # 1.0 H Seg Neutrophils % Seg Neuts % (Manual) Lymphocytes % (Manual) Seg Neutrophils # 18.2 H Seg Neutrophils # Man Lymphocytes # (Manual) Monocytes # (Manual) PT INR D-Dimer Sodium Potassium Chloride Carbon Dioxide BUN Creatinine Glucose POC Glucose 190 H 234 H Hemoglobin A1c Calcium Ferritin Alkaline Phosphatase Lactate Dehydrogenase Total Creatine Kinase C-Reactive Protein Albumin Fjsei-1-Udgwgpeji Thyrc-1-Paddmimwy Beta Globulins PEP Interpretation Urine Creatinine Complement C3 Complement C4 Coronavirus (PCR) 06/05/20 06/05/20 06/05/20 04:56 05:43 09:27 WBC RBC MCHC RDW Lymph % (Auto) Lymph # [place] # Seg Neutrophils % Seg Neuts % (Manual) Lymphocytes % (Manual) Seg Neutrophils # Seg Neutrophils # Man Lymphocytes # (Manual) Monocytes # (Manual) PT INR D-Dimer Sodium Potassium Chloride Carbon Dioxide 21 L BUN 63 H Creatinine 3.0 H Glucose 170 H POC Glucose 156 H 106 H Hemoglobin A1c Calcium Ferritin Alkaline Phosphatase Lactate Dehydrogenase Total Creatine Kinase C-Reactive Protein Albumin 3.0 L Kmgmq-0-Jqidzatnw Mtvga-6-Thkvduwsr Beta Globulins PEP Interpretation Urine Creatinine Complement C3 Complement C4 Coronavirus (PCR) 06/05/20 06/05/20 06/06/20 15:50 23:36 10:31 WBC 18.3 H RBC MCHC RDW 15.6 H Lymph % (Auto) Lymph # [place] # Seg Neutrophils % Seg Neuts % (Manual) 90.0 H Lymphocytes % (Manual) 6.0 L Seg Neutrophils # Seg Neutrophils # Man 16.5 H Lymphocytes # (Manual) 1.1 L Monocytes # (Manual) PT INR D-Dimer Sodium Potassium Chloride Carbon Dioxide BUN Creatinine Glucose POC Glucose 197 H 193 H Hemoglobin A1c Calcium Ferritin Alkaline Phosphatase Lactate Dehydrogenase Total Creatine Kinase C-Reactive Protein Albumin Fjkyz-8-Overcmfzk Isvaq-4-Vffvlvlti Beta Globulins PEP Interpretation Urine Creatinine Complement C3 Complement C4 Coronavirus (PCR) 06/06/20 06/06/20 06/06/20 10:31 12:34 17:34 WBC RBC MCHC RDW Lymph % (Auto) Lymph # [place] # Seg Neutrophils % Seg Neuts % (Manual) Lymphocytes % (Manual) Seg Neutrophils # Seg Neutrophils # Man Lymphocytes # (Manual) Monocytes # (Manual) PT INR D-Dimer Sodium Potassium Chloride Carbon Dioxide BUN 65 H Creatinine 2.7 H Glucose 61 L POC Glucose 50 L 117 H Hemoglobin A1c Calcium Ferritin Alkaline Phosphatase Lactate Dehydrogenase Total Creatine Kinase C-Reactive Protein Albumin Oaffk-1-Wklzvtcmm Tirqy-6-Ejnziytsy Beta Globulins PEP Interpretation Urine Creatinine Complement C3 Complement C4 Coronavirus (PCR) 06/07/20 06/07/20 06/07/20 04:40 04:40 06:07 WBC 16.3 H RBC MCHC RDW 15.6 H Lymph % (Auto) 4.9 L Lymph # 0.8 L [place] # 0.9 H Seg Neutrophils % 89.3 H Seg Neuts % (Manual) Lymphocytes % (Manual) Seg Neutrophils # 14.6 H Seg Neutrophils # Man Lymphocytes # (Manual) Monocytes # (Manual) PT INR D-Dimer Sodium Potassium 5.1 H D Chloride Carbon Dioxide BUN 67 H Creatinine 2.6 H Glucose 52 L POC Glucose 45 L Hemoglobin A1c Calcium Ferritin Alkaline Phosphatase Lactate Dehydrogenase Total Creatine Kinase C-Reactive Protein Albumin Srwnc-2-Msbkkpalf Hlpds-2-Xvoohfwvv Beta Globulins PEP Interpretation Urine Creatinine Complement C3 Complement C4 Coronavirus (PCR) 06/07/20 06/07/20 06/07/20 10:34 10:49 12:26 WBC RBC MCHC RDW Lymph % (Auto) Lymph # [place] # Seg Neutrophils % Seg Neuts % (Manual) Lymphocytes % (Manual) Seg Neutrophils # Seg Neutrophils # Man Lymphocytes # (Manual) Monocytes # (Manual) PT INR D-Dimer Sodium Potassium Chloride Carbon Dioxide BUN Creatinine Glucose POC Glucose 57 L 54 L 192 H Hemoglobin A1c Calcium Ferritin Alkaline Phosphatase Lactate Dehydrogenase Total Creatine Kinase C-Reactive Protein Albumin Vwsxv-7-Iyrzxrevz Migtm-2-Fwswehete Beta Globulins PEP Interpretation Urine Creatinine Complement C3 Complement C4 Coronavirus (PCR) 06/07/20 06/08/20 06/08/20 17:42 00:12 04:52 WBC 18.8 H RBC MCHC RDW 15.6 H Lymph % (Auto) 4.6 L Lymph # 0.9 L [place] # 1.0 H Seg Neutrophils % 89.7 H Seg Neuts % (Manual) Lymphocytes % (Manual) Seg Neutrophils # 16.9 H Seg Neutrophils # Man Lymphocytes # (Manual) Monocytes # (Manual) PT INR D-Dimer Sodium Potassium Chloride Carbon Dioxide BUN Creatinine Glucose POC Glucose 241 H 285 H Hemoglobin A1c Calcium Ferritin Alkaline Phosphatase Lactate Dehydrogenase Total Creatine Kinase C-Reactive Protein Albumin Kauxp-3-Gduawfoqn Ipkeh-3-Zpvevacxo Beta Globulins PEP Interpretation Urine Creatinine Complement C3 Complement C4 Coronavirus (PCR) 06/08/20 06/08/20 06/08/20 04:52 05:41 12:44 WBC RBC MCHC RDW Lymph % (Auto) Lymph # [place] # Seg Neutrophils % Seg Neuts % (Manual) Lymphocytes % (Manual) Seg Neutrophils # Seg Neutrophils # Man Lymphocytes # (Manual) Monocytes # (Manual) PT INR D-Dimer Sodium Potassium Chloride Carbon Dioxide BUN 66 H Creatinine 2.6 H Glucose 175 H POC Glucose 177 H 172 H Hemoglobin A1c Calcium Ferritin Alkaline Phosphatase Lactate Dehydrogenase Total Creatine Kinase C-Reactive Protein Albumin Pxlrl-8-Ybmuuvtnb Xskad-9-Pyjnjxuds Beta Globulins PEP Interpretation Urine Creatinine Complement C3 Complement C4 Coronavirus (PCR) 06/08/20 06/09/20 06/09/20 23:39 01:03 01:03 WBC 19.6 H RBC MCHC 36 H RDW 15.5 H Lymph % (Auto) 5.3 L Lymph # 1.0 L [place] # Seg Neutrophils % Seg Neuts % (Manual) Lymphocytes % (Manual) Seg Neutrophils # 17.7 H Seg Neutrophils # Man Lymphocytes # (Manual) Monocytes # (Manual) PT INR D-Dimer Sodium 136 L Potassium Chloride Carbon Dioxide 20 L BUN 68 H Creatinine 2.7 H Glucose 180 H POC Glucose 196 H Hemoglobin A1c Calcium 8.3 L Ferritin Alkaline Phosphatase Lactate Dehydrogenase Total Creatine Kinase C-Reactive Protein Albumin 2.6 L Mcjhf-5-Skrcgpjjr Zqvte-6-Neyygsuvq Beta Globulins PEP Interpretation Urine Creatinine Complement C3 Complement C4 Coronavirus (PCR) 06/09/20 06/09/20 06/09/20 05:42 06:02 09:21 WBC RBC MCHC RDW Lymph % (Auto) Lymph # [place] # Seg Neutrophils % Seg Neuts % (Manual) Lymphocytes % (Manual) Seg Neutrophils # Seg Neutrophils # Man Lymphocytes # (Manual) Monocytes # (Manual) PT INR D-Dimer > 95348 H Sodium Potassium Chloride Carbon Dioxide 20 L BUN 66 H Creatinine 2.7 H Glucose 141 H POC Glucose 136 H Hemoglobin A1c Calcium Ferritin Alkaline Phosphatase Lactate Dehydrogenase Total Creatine Kinase C-Reactive Protein Albumin Ufnvf-8-Ostfmyrnj Khbmf-0-Gckwjsgcc Beta Globulins PEP Interpretation Urine Creatinine Complement C3 Complement C4 Coronavirus (PCR) 06/09/20 06/09/20 06/09/20 09:21 09:21 10:26 WBC RBC MCHC RDW Lymph % (Auto) Lymph # [place] # Seg Neutrophils % Seg Neuts % (Manual) Lymphocytes % (Manual) Seg Neutrophils # Seg Neutrophils # Man Lymphocytes # (Manual) Monocytes # (Manual) PT INR D-Dimer Sodium Potassium Chloride Carbon Dioxide BUN Creatinine Glucose 195 H POC Glucose 178 H Hemoglobin A1c Calcium Ferritin 1045.0 H Alkaline Phosphatase Lactate Dehydrogenase 461 H Total Creatine Kinase C-Reactive Protein 9.30 H Albumin Makev-5-Zkqiikqpk Ajbvs-5-Umxcfldhs Beta Globulins PEP Interpretation Urine Creatinine Complement C3 Complement C4 Coronavirus (PCR) 06/09/20 06/09/20 06/10/20 17:30 22:22 00:34 WBC 18.6 H RBC MCHC RDW 15.6 H Lymph % (Auto) Lymph # [place] # Seg Neutrophils % Seg Neuts % (Manual) 94.0 H Lymphocytes % (Manual) 2.0 L Seg Neutrophils # Seg Neutrophils # Man 17.5 H Lymphocytes # (Manual) 0.4 L Monocytes # (Manual) PT INR D-Dimer Sodium Potassium Chloride Carbon Dioxide BUN Creatinine Glucose POC Glucose 219 H 167 H Hemoglobin A1c Calcium Ferritin Alkaline Phosphatase Lactate Dehydrogenase Total Creatine Kinase C-Reactive Protein Albumin Cxdzp-1-Gjvuqpbps Gjzvk-2-Puedryjlh Beta Globulins PEP Interpretation Urine Creatinine Complement C3 Complement C4 Coronavirus (PCR) 06/10/20 06/10/20 06/10/20 00:34 04:42 05:54 WBC RBC MCHC RDW Lymph % (Auto) Lymph # [place] # Seg Neutrophils % Seg Neuts % (Manual) Lymphocytes % (Manual) Seg Neutrophils # Seg Neutrophils # Man Lymphocytes # (Manual) Monocytes # (Manual) PT INR D-Dimer Sodium Potassium 5.5 H 6.0 H Chloride Carbon Dioxide 21 L 19 L BUN 70 H 68 H Creatinine 2.6 H 2.8 H Glucose 177 H 185 H POC Glucose 171 H Hemoglobin A1c Calcium Ferritin Alkaline Phosphatase 134 H Lactate Dehydrogenase Total Creatine Kinase C-Reactive Protein Albumin 2.9 L Woztq-2-Gbbczjgcy Gznxp-7-Koycroqxd Beta Globulins PEP Interpretation Urine Creatinine Complement C3 Complement C4 Coronavirus (PCR)
[2020-06-10] MEDS: dilTIAZem 60 MG TAB PO SCH (08:41)
[2020-06-10] MEDS ORDERED: INSULIN REGULAR, HUMAN 100 UNIT/ML 3ML VIAL IV ONE (09:00)
[2020-06-10] MEDS ORDERED: CALCIUM GLUCONATE 1,000 MG in SODIUM CHLORIDE 0.9% 100 ML IV ONE (09:00)
[2020-06-10] MEDS ORDERED: SODIUM POLYSTYRENE 15 GM/60 ML ORAL LIQD PO ONE (09:00)
[2020-06-10] MEDS ORDERED: DEXTROSE 50% IN WATER (25GM) 50 ML SYRINGE IV ONE (09:00)
[2020-06-10] MEDS: ENOXAPARIN 100 MG/1 ML INJ SUB-Q SCH (09:05)
--- NOTE | 2020-06-10 09:28 | Progress Note ---
Assessment and Plan Correct K. Increase PO Cardizem to 90mg TID. Wean Cardizem drip as tolerated. Cont Lovenox for now. Will consider transition to OAC when clinically stable. Chest CTA when stable. Will obtain echo upon resolution of COVID-19 infection. Pt seen in conjunction with Dr. Smith, who agrees with the assessment and plan of care. - Patient Problems (1) Acute respiratory failure with hypoxia Current Visit: Yes Status: Acute (2) Pneumonia due to COVID-19 virus Current Visit: Yes Status: Acute (3) Paroxysmal atrial fibrillation with RVR Current Visit: Yes Status: Acute (4) Elevated d-dimer Current Visit: Yes Status: Acute (5) Acute kidney injury superimposed on CKD Current Visit: Yes Status: Acute (6) Hyperkalemia Current Visit: Yes Status: Acute (7) HTN (hypertension) Current Visit: Yes Status: Chronic Qualifiers: Hypertension type: essential hypertension Qualified Code(s): I10 - Essential (primary) hypertension (8) Diabetes Current Visit: Yes Status: Chronic Qualifiers: Diabetes mellitus type: type 2 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 Continuous BiPAP required. Tele reviewed - pt remains in AF 120-130s w/noted spikes into the 150s. Cardizem drip initiated. Objective Last Vital Signs Temp 98.5 F 06/10/20 04:00 Pulse 130 H 06/10/20 08:41 Resp 39 H 06/10/20 08:01 BP 138/93 06/10/20 08:41 Pulse Ox 95 06/10/20 08:01 - Physical Examination Narrative exam: Exam deferred due to COVID-19 infection (exposure reduction and PPE conservation). Recommendations have been provided based on chart review and provider discussions. 30 mins spent in discussions with pt/family via phone, chart review, plan formation, and consultation with referring provider. Cardiac: Positive: irregularly irregular - Labs and Meds Cardiac Enzymes 06/09/20 06/10/20 Range/Units 09:21 00:34 AST 19 (5-40) units/L Lactate Dehydrogenase 461 H (91-180) units/L CBC 06/10/20 Range/Units 00:34 WBC 18.6 H (4.5-11.0) K/mm3 RBC 4.96 (3.65-5.03) M/mm3 Hgb 14.7 (11.8-15.2) gm/dl Hct 43.3 (35.5-45.6) % Plt Count 248 (140-440) K/mm3 Comprehensive Metabolic Panel 06/09/20 06/10/20 06/10/20 Range/Units 09:21 00:34 04:42 Sodium 141 141 (137-145) mmol/L Potassium 5.5 H 6.0 H (3.6-5.0) mmol/L Chloride 102.5 104.5 (98-107) mmol/L Carbon Dioxide 21 L 19 L (22-30) mmol/L BUN 70 H 68 H (9-20) mg/dL Creatinine 2.6 H 2.8 H (0.8-1.3) mg/dL Glucose 195 H 177 H 185 H (75-100) mg/dL Calcium 8.8 9.1 (8.4-10.2) mg/dL AST 19 (5-40) units/L ALT 28 (7-56) units/L Alkaline Phosphatase 134 H (35-129) units/L Total Protein 7.2 (6.3-8.2) g/dL Albumin 2.9 L (3.9-5) g/dL - Imaging and Cardiology EKG: report reviewed, image reviewed Echo: pending - Telemetry EKG Rhythm: Atrial Fibrillation - EKG Supraventricular dysrhythmia: atrial fibrillation
[2020-06-10] MEDS: dexAMETHasone 4 MG/ML VIAL IV SCH (10:12)
[2020-06-10] MEDS ORDERED: SODIUM CHLORIDE 0.9% 250ML 250 ML IV ONE (11:15)
--- NOTE | 2020-06-10 11:33 | Progress Note ---
Assessment and Plan Assessment and plan: 54 year old male presenting with shortness of breath, with hypoxia on admission, saturation in the low 80s. Here, his chest x-ray showed bilateral infiltrates and COVID-19 test was positive. He was admitted to the hospital. Patient was started on steroids and ID and pulmonology were consulted. 06/02: Continue current management. Patient on high flow. If can tolerate prone recommend prone position during hours of sleep. 06/03: Continue supportive care. Overall prognosis is guarded. Will discuss proceed with obtaining consent for convalescent plasma. Poor prognosis considering COVID-19 and complicated by renal failure. 06/04: Continue current therapy consent obtained for convalescent plasma. Will discuss with laboratory to obtain the plasma. 06/05: Continue supportive care. Poor prognosis. Patient will like to think about plasma therapy and not ready to sign the consent now. 06/06: Patient remains on high flow with hypoxia persistent despite 100%. Still wants to think about the convalescent plasma therapy. Continue current support with pulmonary assistance. Mild improvement in pulmonary status still not a candidate for Remdesivir. Will obtain nephrology consultation to assist in management 06/07. Patient seen on BiPAP today. Nephrology consulted for impaired renal function. 06/08. He agrees to get convalescent plasma. Order placed in chart. Discussed with blood bank. 06/09: Convalescent plasma ordered, poor prognosis, still monitoring renal function, continues on BIPAP. Check markers for COVID19. continue steroids to complete 10 days. 06/10: Continue supportive care, cardiology input noted, will start on cardizem drip, Continue aniticoagulation, Renal function worse, will monitor and discuss with nephrology about possible initiating HD. Problems Acute Hypoxic Respiratory failure Atrial Fibrillation with RVR Luekocytosis- Persist 2019 novel sampson virus Pneumonia Bilateral penumonia KEITH WITH VASOMOTOR NEPHROPATHY ON CKD Stage 3 HTN DM with hyperglycemia Plan Continue support care Maintain on BiPAP and high flow oxygen if necessary. Prone positioning as needed if able to tolerate. High risk of intubation given hypoxia Continue steroids Remdesivir precluded due to renal function Continue antibiotics Convalescent plasma ordered as he now consents ID, pulmonology and nephrology following Aspiration precautions DVT/GI prophy Plan discussed with the patient The high probability of a clinically significant, sudden or life threatening deterioration of the [pulmonary] system(s) required my full and direct attention, intervention and personal management. The aggregate critical care time was [35] minutes. This time is in addition to time spent performing reported procedures but includes the following: [x] Data Review and interpretation [x] Patient assessment and monitoring of vital signs [x] Documentation [x] Medication orders and management History Interval history: Patient seen and examined becomes hypoxic Hospitalist Physical - Physical exam Narrative exam: VITAL SIGNS: Reviewed. GENERAL: Moderate respiratory distress on BIPAP, obese vital signs as documented. HEAD: No signs of head trauma. EYES: Pupils are equal. Extraocular motions intact. EARS: Hearing grossly intact. MOUTH: Oropharynx is normal. NECK: No adenopathy, no JVD. CHEST: diminished breath sounds bilaterally. No wheezes, rales, or rhonchi. CARDIAC: irregular irregular. S1 and S2, without murmurs, gallops, or rubs. VASCULAR: No Edema. Peripheral pulses normal and equal in all extremities. ABDOMEN: Soft, non tender and non distended. No rebound or guarding, and no masses palpated. Bowel Sounds normal. MUSCULOSKELETAL: Good range of motion of all major joints. Extremities without clubbing, cyanosis or edema. NEUROLOGIC EXAM: Awake but lethargic and oriented x 3 No focal sensory or strength deficits. Speech normal. Follows commands. PSYCHIATRIC: Mood normal. SKIN: detail exam as documented in skin assessment - Constitutional Vitals: Temp Pulse Resp BP Pulse Ox 98.4 F 130 H 39 H 138/93 95 06/10/20 08:00 06/10/20 08:41 06/10/20 08:01 06/10/20 08:41 06/10/20 08:01 General appearance: Present: no acute distress HEART Score - HEART Score Troponin: Troponin T 0.021 ng/mL (0.00-0.029) 05/31/20 15:23 Results - Labs CBC & Chem 7: 06/10/20 00:34 06/10/20 04:42 Labs: Laboratory Last Values WBC 18.6 K/mm3 (4.5-11.0) H 06/10/20 00:34 RBC 4.96 M/mm3 (3.65-5.03) 06/10/20 00:34 Hgb 14.7 gm/dl (11.8-15.2) 06/10/20 00:34 Hct 43.3 % (35.5-45.6) 06/10/20 00:34 MCV 87 fl (84-94) 06/10/20 00:34 MCH 30 pg (28-32) 06/10/20 00:34 MCHC 34 % (32-34) 06/10/20 00:34 RDW 15.6 % (13.2-15.2) H 06/10/20 00:34 Plt Count 248 K/mm3 (140-440) 06/10/20 00:34 Lymph % (Auto) 5.3 % (13.4-35.0) L 06/09/20 01:03 [place] % (Auto) 4.1 % (0.0-7.3) 06/09/20 01:03 Eos % (Auto) 0.0 % (0.0-4.3) 06/09/20 01:03 Baso % (Auto) 0.2 % (0.0-1.8) 06/09/20 01:03 Lymph # 1.0 K/mm3 (1.2-5.4) L 06/09/20 01:03 Crawford # 0.8 K/mm3 (0.0-0.8) 06/09/20 01:03 Eos # 0.0 K/mm3 (0.0-0.4) 06/09/20 01:03 Baso # 0.0 K/mm3 (0.0-0.1) 06/09/20 01:03 Add Manual Diff Complete 06/10/20 00:34 Total Counted 100 06/10/20 00:34 Seg Neutrophils % Broadcast Checker 06/10/20 00:34 Seg Neuts % (Manual) 94.0 % (40.0-70.0) H 06/10/20 00:34 Band Neutrophils % 1.0 % 06/10/20 00:34 Lymphocytes % (Manual) 2.0 % (13.4-35.0) L 06/10/20 00:34 Reactive Lymphs % (Man) 0 % 06/10/20 00:34 Monocytes % (Manual) 3.0 % (0.0-7.3) 06/10/20 00:34 Eosinophils % (Manual) 0 % (0.0-4.3) 06/10/20 00:34 Basophils % (Manual) 0 % (0.0-1.8) 06/10/20 00:34 Metamyelocytes % 0 % 06/10/20 00:34 Myelocytes % 0 % 06/10/20 00:34 Promyelocytes % 0 % 06/10/20 00:34 Blast Cells % 0 % 06/10/20 00:34 Nucleated RBC % Not Reportable 06/10/20 00:34 Seg Neutrophils # 17.7 K/mm3 (1.8-7.7) H 06/09/20 01:03 Seg Neutrophils # Man 17.5 K/mm3 (1.8-7.7) H 06/10/20 00:34 Band Neutrophils # 0.2 K/mm3 06/10/20 00:34 Lymphocytes # (Manual) 0.4 K/mm3 (1.2-5.4) L 06/10/20 00:34 Abs React Lymphs (Man) 0.0 K/mm3 06/10/20 00:34 Monocytes # (Manual) 0.6 K/mm3 (0.0-0.8) 06/10/20 00:34 Eosinophils # (Manual) 0.0 K/mm3 (0.0-0.4) 06/10/20 00:34 Basophils # (Manual) 0.0 K/mm3 (0.0-0.1) 06/10/20 00:34 Metamyelocytes # 0.0 K/mm3 06/10/20 00:34 Myelocytes # 0.0 K/mm3 06/10/20 00:34 Promyelocytes # 0.0 K/mm3 06/10/20 00:34 Blast Cells # 0.0 K/mm3 06/10/20 00:34 WBC Morphology Not Reportable 06/10/20 00:34 Hypersegmented Neuts Not Reportable 06/10/20 00:34 Hyposegmented Neuts Not Reportable 06/10/20 00:34 Hypogranular Neuts Not Reportable 06/10/20 00:34 Smudge Cells Not Reportable 06/10/20 00:34 Toxic Granulation Not Reportable 06/10/20 00:34 Toxic Vacuolation Not Reportable 06/10/20 00:34 Dohle Bodies Not Reportable 06/10/20 00:34 Pelger-Huet Anomaly Not Reportable 06/10/20 00:34 Edwige Rods Not Reportable 06/10/20 00:34 Platelet Estimate Consistent w auto 06/10/20 00:34 Clumped Platelets Not Reportable 06/10/20 00:34 Plt Clumps, EDTA Not Reportable 06/10/20 00:34 Large Platelets Not Reportable 06/10/20 00:34 Giant Platelets Not Reportable 06/10/20 00:34 Platelet Satelliting Not Reportable 06/10/20 00:34 Plt Morphology Comment Not Reportable 06/10/20 00:34 RBC Morphology Normal 06/10/20 00:34 Dimorphic RBCs Not Reportable 06/10/20 00:34 Polychromasia Not Reportable 06/10/20 00:34 Hypochromasia Not Reportable 06/10/20 00:34 Poikilocytosis Not Reportable 06/10/20 00:34 Anisocytosis Not Reportable 06/10/20 00:34 Microcytosis Not Reportable 06/10/20 00:34 Macrocytosis Not Reportable 06/10/20 00:34 Spherocytes Not Reportable 06/10/20 00:34 Pappenheimer Bodies Not Reportable 06/10/20 00:34 Sickle Cells Not Reportable 06/10/20 00:34 Target Cells Not Reportable 06/10/20 00:34 Tear Drop Cells Not Reportable 06/10/20 00:34 Ovalocytes Not Reportable 06/10/20 00:34 Helmet Cells Not Reportable 06/10/20 00:34 [place] Bodies Not Reportable 06/10/20 00:34 Mcdonald Rings Not Reportable 06/10/20 00:34 [place] Cells Not Reportable 06/10/20 00:34 Bite Cells Not Reportable 06/10/20 00:34 Crenated Cell Not Reportable 06/10/20 00:34 Elliptocytes Not Reportable 06/10/20 00:34 Acanthocytes (Spur) Not Reportable 06/10/20 00:34 Rouleaux Not Reportable 06/10/20 00:34 Hemoglobin C Crystals Not Reportable 06/10/20 00:34 Schistocytes Not Reportable 06/10/20 00:34 Malaria parasites Not Reportable 06/10/20 00:34 [place]inson Bodies Not Reportable 06/10/20 00:34 Hem Pathologist Commnt No 06/10/20 00:34 PT 11.5 Sec. (12.2-14.9) L 05/31/20 15:23 INR 0.83 (0.87-1.13) L 05/31/20 15:23 D-Dimer > 82539 ng/mlDDU (0-234) H 06/09/20 09:21 Sodium 141 mmol/L (137-145) 06/10/20 04:42 Potassium 6.0 mmol/L (3.6-5.0) H 06/10/20 04:42 Chloride 104.5 mmol/L (98-107) 06/10/20 04:42 Carbon Dioxide 19 mmol/L (22-30) L 06/10/20 04:42 Anion Gap 24 mmol/L 06/10/20 04:42 BUN 68 mg/dL (9-20) H 06/10/20 04:42 Creatinine 2.8 mg/dL (0.8-1.3) H 06/10/20 04:42 Estimated GFR 29 ml/min 06/10/20 04:42 BUN/Creatinine Ratio 24 % 06/10/20 04:42 Glucose 185 mg/dL (75-100) H 06/10/20 04:42 POC Glucose 171 (70-105) H 06/10/20 05:54 Hemoglobin A1c 8.5 % (4-6) H 05/31/20 16:49 Calcium 9.1 mg/dL (8.4-10.2) 06/10/20 04:42 Magnesium 2.20 mg/dL (1.7-2.3) 05/31/20 15:23 Ferritin 1045.0 ng/mL (30.0-300.0) H 06/09/20 09:21 Total Bilirubin 0.40 mg/dL (0.1-1.2) 06/10/20 00:34 AST 19 units/L (5-40) 06/10/20 00:34 ALT 28 units/L (7-56) 06/10/20 00:34 Alkaline Phosphatase 134 units/L (35-129) H 06/10/20 00:34 Lactate Dehydrogenase 461 units/L (91-180) H 06/09/20 09:21 Total Creatine Kinase 325 units/L (55-170) H 05/31/20 15:23 Troponin T 0.021 ng/mL (0.00-0.029) 05/31/20 15:23 C-Reactive Protein 9.30 mg/dL (0.00-1.30) H 06/09/20 09:21 NT-Pro-B Natriuret Pep 111.3 pg/mL (0-900) 06/01/20 13:41 Serum Total Protein 6.8 g/dL (6.1-8.1) 06/04/20 04:17 Total Protein 7.2 g/dL (6.3-8.2) 06/10/20 00:34 Albumin 2.9 g/dL (3.9-5) L 06/10/20 00:34 Albumin/Globulin Ratio 0.7 % 06/10/20 00:34 Hfwoi-9-Dodqduygd 0.5 g/dL (0.2-0.3) H 06/04/20 04:17 Tatku-6-Vjoaojofg 1.6 g/dL (0.5-0.9) H 06/04/20 04:17 Beta Globulins 0.6 g/dL (0.2-0.5) H 06/04/20 04:17 Gamma Globulins 1.2 g/dL (0.8-1.7) 06/04/20 04:17 Abnorm Protein Band 1 see below 06/04/20 04:17 PEP Interpretation see below H 06/04/20 04:17 Procalcitonin 0.37 ng/mL (<0.15) 06/05/20 05:01 Urine Color Yellow (Yellow) 06/01/20 Unknown Urine Turbidity Clear (Clear) 06/01/20 Unknown Urine pH 5.0 (5.0-7.0) 06/01/20 Unknown Ur Specific [place] 1.018 (1.003-1.030) 06/01/20 Unknown Urine Protein >500 mg/dL (Negative) 06/01/20 Unknown Urine Glucose (UA) >=500 mg/dL (Negative) 06/01/20 Unknown Urine Ketones Tr mg/dL (Negative) 06/01/20 Unknown Urine Blood Mod (Negative) 06/01/20 Unknown Urine Nitrite Neg (Negative) 06/01/20 Unknown Urine Bilirubin Neg (Negative) 06/01/20 Unknown Urine Urobilinogen < 2.0 mg/dL (<2.0) 06/01/20 Unknown Ur Leukocyte Esterase Neg (Negative) 06/01/20 Unknown Urine WBC (Auto) 4.0 /HPF (0.0-6.0) 06/01/20 Unknown Urine RBC (Auto) 9.0 /HPF (0.0-6.0) 06/01/20 Unknown U Epithel Cells (Auto) 1.0 /HPF (0-13.0) 06/01/20 Unknown Urine Mucus Few /HPF 06/01/20 Unknown Urine Eosinophils None seen (None Seen) 06/01/20 Unknown Urine Creatinine 161.6 mg/dL (0.1-20.0) H 06/01/20 Unknown Urine Sodium 47 mmol/L 06/01/20 Unknown FLACO Screen Negative (Negative) 06/03/20 13:17 Proteinase 3 (PR3) Ab <1.0 AI (<1.0) 06/03/20 13:17 Myeloperoxidase Ab <1.0 AI (<1.0) 06/03/20 13:17 Complement C3 223 mg/dL (82-185) H 06/03/20 10:39 Complement C4 64 mg/dL (15-53) H 06/03/20 10:39 Coronavirus (PCR) Positive (Negative) A 06/01/20 Unknown Hepatitis A IgM Ab Non-reactive (NonReactive) 06/03/20 10:39 Hep Bs Antigen Non-reactive (Negative) 06/03/20 10:39 Hep B Core IgM Ab Non-reactive (NonReactive) 06/03/20 10:39 Hepatitis C Antibody Non-reactive (NonReactive) 06/03/20 10:39 Blood Type A POSITIVE 06/08/20 09:41 Antibody Screen Negative 06/08/20 09:41 Hess/IV: Voiding Method Condom Catheter IV Catheter Type [Right Upper Peripheral IV arm] IV Catheter Type [Right INT / Saline Lock Antecubital] Active Medications - Current Medications Current Medications: Generic Name Dose Route Start Last Admin Trade Name Freq PRN Reason Stop Dose Admin Acetaminophen 650 mg 05/31/20 15:49 Tylenol PO Q6H PRN Pain MILD(1-3)/Fever >100.5/LEBRON Albuterol 2.5 mg 05/31/20 15:49 Proventil IH Q3HRT PRN Shortness Of Breath Atorvastatin Calcium 20 mg 05/31/20 22:00 06/09/20 22:42 Lipitor PO Not Given QHS [facility] Bisacodyl 10 mg 05/31/20 15:57 Dulcolax HI QDAY PRN Constipation unrelieved by MOM Chlorpromazine HCl 10 mg 05/31/20 15:57 Thorazine PO Q6H PRN Hiccups Dexamethasone 6 mg 06/09/20 12:00 06/10/20 10:12 Decadron IV 06/11/20 11:59 6 mg DAILY CHERI Administration Dextrose 50 ml 05/31/20 15:59 06/07/20 10:48 D50w (25gm) Syringe IV 20 ml Q30MIN PRN Administration Hypoglycemia Protocol Diltiazem HCl 90 mg 06/10/20 12:00 Cardizem PO TID [facility] Enoxaparin Sodium 100 mg 06/10/20 10:00 06/10/20 09:05 Enoxaparin SUB-Q 100 mg Q24HR CHERI Administration Diltiazem HCl 100 mg in 100 mls @ 5 mls/hr 06/10/20 10:00 Cardizem/D5w 100mg/100ml IV TITR CHERI Protocol 5 MG/HR Insulin Glargine 8 units 06/08/20 22:00 06/09/20 22:42 Lantus SUB-Q Not Given QHS [facility] Insulin Human Lispro 0 unit 05/31/20 16:00 06/10/20 11:08 Humalog SUB-Q 4 unit Q6H [facility] Administration Protocol Metoprolol Tartrate 5 mg 06/09/20 14:52 06/10/20 04:19 Metoprolol IV 5 mg Q6HR PRN Administration Tachyarrhythmias Naloxone HCl 0.1 mg 05/31/20 15:49 Naloxone IV Q2MIN PRN Res Rate </= 8 or 02 SAT < 92% Ondansetron HCl 4 mg 05/31/20 15:57 Zofran IV Q8H PRN N/V unrelieved by Reglan Oxycodone/Acetaminophen 1 tab 05/31/20 15:49 06/03/20 00:57 Percocet 5/325 PO 1 tab Q6H PRN Administration Pain, Moderate (4-6) Sodium Chloride 10 ml 05/31/20 22:00 06/10/20 10:12 Sodium Chloride Flush Syringe 10 Ml IV 10 ml BID CHERI Administration Sodium Chloride 10 ml 05/31/20 15:49 Sodium Chloride Flush Syringe 10 Ml IV PRN PRN LINE FLUSH Tizanidine HCl 4 mg 05/31/20 15:57 06/08/20 21:47 Zanaflex PO 4 mg Q8H PRN Administration Muscle Spasm Nutrition/Malnutrition Assess - Dietary Evaluation Nutrition/Malnutrition Findings: Nutrition Notes Start: 06/01/20 10:42 Freq: Status: Active Protocol: Document 06/06/20 12:01 [email or web address] (Rec: 06/06/20 12:19 [email or web address]) Co-Sign 06/06/20 12:01 NHALL Nutrition Notes Initial or Follow up Assessment Current Diagnosis CKD(stage I-IV),Diabetes, Hypertension,Stroke Other Pertinent Diagnosis COVID-19 (+) Current Diet Renal Labs/Tests Reviewed Height 5 ft 9 in Weight 113 kg [place] Body Weight (kg) 72.72 BMI 36.8 Weight Status Obese Subjective/Other Information Unable to reach pt by phone with two attempts. Spoke to RN about intakes. Consumes 100% of meals when not on Bipap. Burn Absent Trauma Absent Minimum of two criteria No #1 Nutrition Diagnosis Altered nutrition-related laboratory values Etiology uncontrolled BG As Evidenced by Signs and Symptoms HgbA1c 8.5 Is patient on ventilator? No Is Patient Ambulatory and/or Out of Bed No REE-([facility]-confined to bed) 2344.476 Kcal/Kg value to use for calculation 16 Approximate Energy Requirements Using 1808 kcal/Kg Additional Notes Protein Needs (1-1.2g/kg AdBW) 92-110g Fluid: 1ml/kcal Nutrition Intervention Change Diet Order: Continue Goal #1 Improve BG control Goal #2 Continued Adequate oral intake Anticipated Discharge Needs: CHO Control diet Follow-Up By: 06/11/20 Additional Comments F/U for intakes and diet education needs
[2020-06-10] MEDS: dilTIAZem/D5W 100 MG/100 ML BAG IV SCH ×2 (11:56→20:15)
--- NOTE | 2020-06-10 12:54 | Progress Note ---
Assessment and Plan 1. Acute kidney injury: KEITH superimposed on CKD stage 3 in the setting of severe COVID infection. Renal US pending. UA results noted. Monitor renal function. Creatinine leveled off. Avoid nephrotoxic agents. Meds dosage based on GFR. 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 2. FEN: Hyperkalemia, multiple meds ordered, monitor. Metabolic acidosis, monitor. Monitor lytes and volume status. 3. Acute hypoxic respiratory failure: 2/2 COVID-19 PNA. On Decadron. On HFNC O2 / BIPAP. Followed by Pulmonary. 4. Bilateral COVID-19 PNA: Followed by ID. 5. DM with hyperglycemia: Accu-Check, sliding scale coverage, ADA diet. 6. Hypertension: Monitor BP. - Subjective: [facility]. D/w RN. - General Appearance General appearance: well-developed, well-nourished, appears stated age, no distress, on BIPAP HEENT: ATNC Neurologic: appears sleeping Subjective Date of service: 06/10/20 Principal diagnosis: COVID-19 PNA, AF RVR Objective - Vital Signs Vital signs: Vital Signs - 12hr 06/10/20 06/10/20 06/10/20 01:01 01:31 02:01 Temperature Pulse Rate 111 H 121 H 123 H Pulse Rate [ From Monitor] Respiratory 37 H 36 H 38 H Rate Blood Pressure 139/89 121/89 128/99 O2 Sat by Pulse 91 100 94 Oximetry 06/10/20 06/10/20 06/10/20 02:31 03:01 03:31 Temperature Pulse Rate 133 H 125 H 115 H Pulse Rate [ From Monitor] Respiratory 42 H 38 H 21 Rate Blood Pressure 128/99 135/105 128/99 O2 Sat by Pulse 99 97 97 Oximetry 06/10/20 06/10/20 06/10/20 04:00 04:19 04:31 Temperature 98.5 F Pulse Rate 121 H 122 H 108 H Pulse Rate [ 136 H From Monitor] Respiratory 46 H 42 H Rate Blood Pressure 134/111 134/111 135/105 O2 Sat by Pulse 97 98 Oximetry 06/10/20 06/10/20 06/10/20 05:01 05:04 05:05 Temperature Pulse Rate 123 H 112 H Pulse Rate [ From Monitor] Respiratory 39 H 33 H Rate Blood Pressure 143/115 143/115 O2 Sat by Pulse 98 98 98 Oximetry 06/10/20 06/10/20 06/10/20 05:31 06:00 06:31 Temperature Pulse Rate 115 H 104 H 111 H Pulse Rate [ From Monitor] Respiratory 42 H 45 H 45 H Rate Blood Pressure 143/115 149/89 143/115 O2 Sat by Pulse 97 92 98 Oximetry 06/10/20 06/10/20 06/10/20 07:01 07:31 08:00 Temperature 98.4 F Pulse Rate 130 H 129 H 144 H Pulse Rate [ From Monitor] Respiratory 38 H 39 H 45 H Rate Blood Pressure 156/90 156/90 146/94 O2 Sat by Pulse 97 94 95 Oximetry 06/10/20 06/10/20 06/10/20 08:01 08:41 11:56 Temperature Pulse Rate 133 H 130 H 135 H Pulse Rate [ From Monitor] Respiratory 39 H Rate Blood Pressure 138/93 138/93 128/85 O2 Sat by Pulse 95 Oximetry 06/10/20 11:57 Temperature Pulse Rate 122 H Pulse Rate [ From Monitor] Respiratory Rate Blood Pressure 128/85 O2 Sat by Pulse Oximetry - Lab 06/10/20 00:34 06/10/20 04:42 Most recent lab results Calcium 9.1 mg/dL (8.4-10.2) 06/10/20 04:42 Magnesium 2.20 mg/dL (1.7-2.3) 05/31/20 15:23 Urine Creatinine 161.6 mg/dL (0.1-20.0) H 06/01/20 Unknown Urine Sodium 47 mmol/L 06/01/20 Unknown Medications & Allergies - Medications Allergies/Adverse Reactions: Allergies lisinopril Allergy (Verified 05/31/20 13:03) Angioedema Penicillins Allergy (Verified 05/31/20 13:03) Hives Home Medications: Home Medications Medication Instructions Recorded Confirmed Last Taken Type Acetaminophen [Acetaminophen TAB] 650 mg PO Q4H PRN #30 tablet 02/15/17 Unknown Rx AtorvaSTATin [Lipitor] 20 mg PO QHS tablet 02/15/17 Unknown Rx Cipro/Dexameth 0.3/0.1% [Ciprodex 4 drops AU BID bottle 02/15/17 Unknown Rx OTIC] Detemir (Nf) [Levemir (Nf)] 100 units SUB-Q QHS units 02/15/17 Unknown Rx Dextrose 50% in Water [D50W (25GM) 50 ml IV PRN PRN #30 syringe 02/15/17 Unknown Rx Syringe] Enoxaparin 40 mg SUB-Q QDAY syringe 02/15/17 Unknown Rx Lipase/Protease/Amylase [Pancreaze 1 each FEEDTUBE PRN PRN #30 capsule 02/15/[address],500 Unit] Metoprolol [Lopressor TAB] 25 mg PO BID tablet 02/15/17 Unknown Rx Metoprolol [Lopressor TAB] 25 mg PO BID #60 tablet 02/15/17 Unknown Rx Ondansetron [Zofran INJ] 4 mg IV Q8H PRN #30 vial 02/15/17 Unknown Rx Prednisone [predniSONE 5 mg (6-Day 5 mg PO .TAPER #1 tab.ds.pk 02/15/17 Unknown Rx Pack, 21 Tabs)] Simple Syrup 15 ml FEEDTUBE PRN PRN #30 02/15/17 Unknown Rx oral.liqd Simple Syrup 30 ml FEEDTUBE PRN PRN #30 02/15/17 Unknown Rx oral.liqd Sodium Bicarbonate 325 mg FEEDTUBE PRN PRN #30 tablet 02/15/17 Unknown Rx amLODIPine 10 mg PO DAILY tablet 02/15/17 Unknown Rx amLODIPine [Norvasc] 10 mg PO DAILY #30 tab 02/15/17 Unknown Rx bisacodyL [Dulcolax suppos] 10 mg [place] QDAY PRN #30 supp.rect 02/15/17 Unknown Rx chlorproMAZINE [Thorazine] 10 mg PO Q6H PRN #30 tablet 02/15/17 Unknown Rx dexAMETHasone [Decadron] 6 mg IV Q6HR vial 02/15/17 Unknown Rx hydrALAZINE [Apresoline INJ] 10 mg IV Q6HR PRN #30 vial 02/15/17 Unknown Rx oxyCODONE /ACETAMINOPHEN [Percocet 1 tab PO Q4H PRN #30 tablet 02/15/17 Unknown Rx 5/325 mg] oxyCODONE /ACETAMINOPHEN [Percocet 1 tab PO Q4HR #30 tab 02/15/17 Unknown Rx 5/325] tiZANidine [Zanaflex 4mg TAB] 4 mg PO Q8H PRN #30 tablet 02/15/17 Unknown Rx Permethrin 5% [Acticin 5% CREAM] 1 applicatio TP ONCE #1 tube 06/11/17 Unknown Rx Azithromycin [Zithromax Z-BENJIE] 250 mg PO DAILY 1 Days tab 11/23/18 Unknown Rx Ondansetron [Zofran Odt] 4 mg PO Q8HR PRN #14 tab.rapdis 11/23/18 Unknown Rx traMADoL [Ultram 50 MG tab] 50 mg PO Q4HR PRN #14 tablet 11/23/18 Unknown Rx Active Medications: Generic Name Dose Route Start Last Admin Trade Name Freq PRN Reason Stop Dose Admin Acetaminophen 650 mg 05/31/20 15:49 Tylenol PO Q6H PRN Pain MILD(1-3)/Fever >100.5/LEBRON Albuterol 2.5 mg 05/31/20 15:49 Proventil IH Q3HRT PRN Shortness Of Breath Atorvastatin Calcium 20 mg 05/31/20 22:00 06/09/20 22:42 Lipitor PO Not Given QHS [facility] Bisacodyl 10 mg 05/31/20 15:57 Dulcolax [place] QDAY PRN Constipation unrelieved by MOM Chlorpromazine HCl 10 mg 05/31/20 15:57 Thorazine PO Q6H PRN Hiccups Dexamethasone 6 mg 06/09/20 12:00 06/10/20 10:12 Decadron IV 06/11/20 11:59 6 mg DAILY CHERI Administration Dextrose 50 ml 05/31/20 15:59 06/07/20 10:48 D50w (25gm) Syringe IV 20 ml Q30MIN PRN Administration Hypoglycemia Protocol Diltiazem HCl 90 mg 06/10/20 12:00 06/10/20 11:57 Cardizem PO Not Given TID [facility] Enoxaparin Sodium 100 mg 06/10/20 10:00 06/10/20 09:05 Enoxaparin SUB-Q 100 mg Q24HR CHERI Administration Diltiazem HCl 100 mg in 100 mls @ 5 mls/hr 06/10/20 10:00 06/10/20 11:56 Cardizem/D5w 100mg/100ml IV 5 mg/hr TITR [facility] 5 mls/hr Administration Protocol 5 MG/HR Insulin Glargine 8 units 06/08/20 22:00 06/09/20 22:42 Lantus SUB-Q Not Given QHS [facility] Insulin Human Lispro 0 unit 05/31/20 16:00 06/10/20 11:08 Humalog SUB-Q 4 unit Q6H [facility] Administration Protocol Metoprolol Tartrate 5 mg 06/09/20 14:52 06/10/20 04:19 Metoprolol IV 5 mg Q6HR PRN Administration Tachyarrhythmias Naloxone HCl 0.1 mg 05/31/20 15:49 Naloxone IV Q2MIN PRN Res Rate </= 8 or 02 SAT < 92% Ondansetron HCl 4 mg 05/31/20 15:57 Zofran IV Q8H PRN N/V unrelieved by Anna Oxycodone/Acetaminophen 1 tab 05/31/20 15:49 06/03/20 00:57 Percocet 5/325 PO 1 tab Q6H PRN Administration Pain, Moderate (4-6) Sodium Chloride 10 ml 05/31/20 22:00 06/10/20 10:12 Sodium Chloride Flush Syringe 10 Ml IV 10 ml BID CHERI Administration Sodium Chloride 10 ml 05/31/20 15:49 Sodium Chloride Flush Syringe 10 Ml IV PRN PRN LINE FLUSH Tizanidine HCl 4 mg 05/31/20 15:57 06/08/20 21:47 Zanaflex PO 4 mg Q8H PRN Administration Muscle Spasm
[2020-06-10] MEDS: INSULIN GLARGINE 100 UNITS/ML SUB-Q SCH (23:04)
[2020-06-11] MEDS: METOPROLOL TARTRATE 5 MG/5 ML INJ IV PRN ×2 (00:10→05:13)
[2020-06-11 01:04] LABS: Hematocrit 42.2 % (35.5-45.6); Hemoglobin 14.3 gm/dl (11.8-15.2); Mean Corpuscular HGB Conc 34 % (32-34); Mean Corpuscular Volume 87 fl (84-94); Platelet Count 282 K/mm3 (140-440); Red Blood Count 4.86 M/mm3 (3.65-5.03); Red Cell Distribution Width 15.4 % (13.2-15.2)
[2020-06-11 01:27] LABS: Albumin 2.7 g/dL (3.9-5); Calcium 9.1 mg/dL (8.4-10.2)
[2020-06-11 02:10] LABS: Basophils % (Manual) 0 % (0.0-1.8); Eosinophils % (Manual) 0 % (0.0-4.3); Platelet Estimate Consistent w Auto; Target Cells Few; Total Cells Counted 100
[2020-06-11] MEDS: dilTIAZem/D5W 100 MG/100 ML BAG IV SCH ×2 (03:01→10:41)
[2020-06-11] MEDS: INSULIN LISPRO 100 UNIT/ML VIAL 3 mL SUB-Q SCH ×3 (05:13→17:30)
--- NOTE | 2020-06-11 08:36 | Progress Note ---
Assessment and Plan Assessment and plan: 54 year old male presenting with shortness of breath, with hypoxia on admission, saturation in the low 80s. Here, his chest x-ray showed bilateral infiltrates and COVID-19 test was positive. He was admitted to the hospital. Patient was started on steroids and ID and pulmonology were consulted. 06/02: Continue current management. Patient on high flow. If can tolerate prone recommend prone position during hours of sleep. 06/03: Continue supportive care. Overall prognosis is guarded. Will discuss proceed with obtaining consent for convalescent plasma. Poor prognosis considering COVID-19 and complicated by renal failure. 06/04: Continue current therapy consent obtained for convalescent plasma. Will discuss with laboratory to obtain the plasma. 06/05: Continue supportive care. Poor prognosis. Patient will like to think about plasma therapy and not ready to sign the consent now. 06/06: Patient remains on high flow with hypoxia persistent despite 100%. Still wants to think about the convalescent plasma therapy. Continue current support with pulmonary assistance. Mild improvement in pulmonary status still not a candidate for Remdesivir. Will obtain nephrology consultation to assist in management 06/07. Patient seen on BiPAP today. Nephrology consulted for impaired renal function. 06/08. He agrees to get convalescent plasma. Order placed in chart. Discussed with blood bank. 06/09: Convalescent plasma ordered, poor prognosis, still monitoring renal function, continues on BIPAP. Check markers for COVID19. continue steroids to complete 10 days. 06/10: Continue supportive care, cardiology input noted, will start on cardizem drip, Continue aniticoagulation, Renal function worse, will monitor and discuss with nephrology about possible initiating HD. 06/11/2020 -Patient is on continuous BiPAP. Pulmonary is following. -On amiodarone and Cardizem drip. Cardiology is following. Patient is on anticoagulation. -Nephrology is following. Potassium level is ok Problems Acute Hypoxic Respiratory failure Atrial Fibrillation with RVR Luekocytosis- Persist 2019 novel sampson virus Pneumonia Bilateral penumonia KEITH WITH VASOMOTOR NEPHROPATHY ON CKD Stage 3 HTN DM with hyperglycemia Plan Continue support care Maintain on BiPAP and high flow oxygen if necessary. Prone positioning as needed if able to tolerate. High risk of intubation given hypoxia Continue steroids Remdesivir precluded due to renal function Continue antibiotics Convalescent plasma ordered as he now consents ID, pulmonology and nephrology following Aspiration precautions DVT/GI prophy Plan discussed with the patient The high probability of a clinically significant, sudden or life threatening deterioration of the [pulmonary] system(s) required my full and direct attention, intervention and personal management. The aggregate critical care time was [35] minutes. This time is in addition to time spent performing reported procedures but includes the following: [x] Data Review and interpretation [x] Patient assessment and monitoring of vital signs [x] Documentation [x] Medication orders and management History Interval history: Patient was seen and evaluated this morning Patient is complaining abdominal pain Patient is on continuous BiPAP Hospitalist Physical - Physical exam Narrative exam: In respiratory distress, patient is on BiPAP. The patient appeared well nourished and normally developed. Vital signs as documented. Head exam is unremarkable. No scleral icterus . Neck is without jugular venous distension, thyromegaly, or carotid bruits. Lungs decreased air entry. Cardiac exam reveals regular rate and Rhythm. Abdominal exam reveals normal bowel sounds, nontender, no organomegaly. Extremities are nonedematous and both femoral and pedal pulses are normal. HUMANITIES PROFESSOR: Alert and oriented 3. No focal weakness. - Constitutional Vitals: Temp Pulse Resp BP Pulse Ox 97.4 F L 120 H 35 H 139/83 94 06/11/20 08:00 06/11/20 08:00 06/11/20 08:00 06/11/20 08:00 06/11/20 08:00 General appearance: Present: no acute distress HEART Score - HEART Score Troponin: Troponin T 0.021 ng/mL (0.00-0.029) 05/31/20 15:23 Results - Labs CBC & Chem 7: 06/11/20 00:14 06/11/20 00:14 Labs: Laboratory Last Values WBC 21.1 K/mm3 (4.5-11.0) H 06/11/20 00:14 RBC 4.86 M/mm3 (3.65-5.03) 06/11/20 00:14 Hgb 14.3 gm/dl (11.8-15.2) 06/11/20 00:14 Hct 42.2 % (35.5-45.6) 06/11/20 00:14 MCV 87 fl (84-94) 06/11/20 00:14 MCH 30 pg (28-32) 06/11/20 00:14 MCHC 34 % (32-34) 06/11/20 00:14 RDW 15.4 % (13.2-15.2) H 06/11/20 00:14 Plt Count 282 K/mm3 (140-440) 06/11/20 00:14 Lymph % (Auto) 5.3 % (13.4-35.0) L 06/09/20 01:03 [place] % (Auto) 4.1 % (0.0-7.3) 06/09/20 01:03 Eos % (Auto) 0.0 % (0.0-4.3) 06/09/20 01:03 Baso % (Auto) 0.2 % (0.0-1.8) 06/09/20 01:03 Lymph # 1.0 K/mm3 (1.2-5.4) L 06/09/20 01:03 [place] # 0.8 K/mm3 (0.0-0.8) 06/09/20 01:03 Eos # 0.0 K/mm3 (0.0-0.4) 06/09/20 01:03 Baso # 0.0 K/mm3 (0.0-0.1) 06/09/20 01:03 Add Manual Diff Complete 06/11/20 00:14 Total Counted 100 06/11/20 00:14 Seg Neutrophils % [employer] Worker 06/11/20 00:14 Seg Neuts % (Manual) 93.0 % (40.0-70.0) H 06/11/20 00:14 Band Neutrophils % 0 % 06/11/20 00:14 Lymphocytes % (Manual) 5.0 % (13.4-35.0) L 06/11/20 00:14 Reactive Lymphs % (Man) 0 % 06/11/20 00:14 Monocytes % (Manual) 2.0 % (0.0-7.3) 06/11/20 00:14 Eosinophils % (Manual) 0 % (0.0-4.3) 06/11/20 00:14 Basophils % (Manual) 0 % (0.0-1.8) 06/11/20 00:14 Metamyelocytes % 0 % 06/11/20 00:14 Myelocytes % 0 % 06/11/20 00:14 Promyelocytes % 0 % 06/11/20 00:14 Blast Cells % 0 % 06/11/20 00:14 Nucleated RBC % Not Reportable 06/11/20 00:14 Seg Neutrophils # 17.7 K/mm3 (1.8-7.7) H 06/09/20 01:03 Seg Neutrophils # Man 19.6 K/mm3 (1.8-7.7) H 06/11/20 00:14 Band Neutrophils # 0.0 K/mm3 06/11/20 00:14 Lymphocytes # (Manual) 1.1 K/mm3 (1.2-5.4) L 06/11/20 00:14 Abs React Lymphs (Man) 0.0 K/mm3 06/11/20 00:14 Monocytes # (Manual) 0.4 K/mm3 (0.0-0.8) 06/11/20 00:14 Eosinophils # (Manual) 0.0 K/mm3 (0.0-0.4) 06/11/20 00:14 Basophils # (Manual) 0.0 K/mm3 (0.0-0.1) 06/11/20 00:14 Metamyelocytes # 0.0 K/mm3 06/11/20 00:14 Myelocytes # 0.0 K/mm3 06/11/20 00:14 Promyelocytes # 0.0 K/mm3 06/11/20 00:14 Blast Cells # 0.0 K/mm3 06/11/20 00:14 WBC Morphology Not Reportable 06/11/20 00:14 Hypersegmented Neuts Not Reportable 06/11/20 00:14 Hyposegmented Neuts Not Reportable 06/11/20 00:14 Hypogranular Neuts Not Reportable 06/11/20 00:14 Smudge Cells Not Reportable 06/11/20 00:14 Toxic Granulation Not Reportable 06/11/20 00:14 Toxic Vacuolation Not Reportable 06/11/20 00:14 Dohle Bodies Not Reportable 06/11/20 00:14 Pelger-Huet Anomaly Not Reportable 06/11/20 00:14 Edwige Rods Not Reportable 06/11/20 00:14 Platelet Estimate Consistent w auto 06/11/20 00:14 Clumped Platelets Not Reportable 06/11/20 00:14 Plt Clumps, EDTA Not Reportable 06/11/20 00:14 Large Platelets Not Reportable 06/11/20 00:14 Giant Platelets Not Reportable 06/11/20 00:14 Platelet Satelliting Not Reportable 06/11/20 00:14 Plt Morphology Comment Not Reportable 06/11/20 00:14 RBC Morphology Not Reportable 06/11/20 00:14 Dimorphic RBCs Not Reportable 06/11/20 00:14 Polychromasia Not Reportable 06/11/20 00:14 Hypochromasia Not Reportable 06/11/20 00:14 Poikilocytosis Not Reportable 06/11/20 00:14 Anisocytosis Not Reportable 06/11/20 00:14 Microcytosis Not Reportable 06/11/20 00:14 Macrocytosis Not Reportable 06/11/20 00:14 Spherocytes Not Reportable 06/11/20 00:14 Pappenheimer Bodies Not Reportable 06/11/20 00:14 Sickle Cells Not Reportable 06/11/20 00:14 Target Cells Few 06/11/20 00:14 Tear Drop Cells Not Reportable 06/11/20 00:14 Ovalocytes Not Reportable 06/11/20 00:14 Helmet Cells Not Reportable 06/11/20 00:14 Sanchez-Register Bodies Not Reportable 06/11/20 00:14 [place]onna Rings Not Reportable 06/11/20 00:14 [place] Cells Not Reportable 06/11/20 00:14 Bite Cells Not Reportable 06/11/20 00:14 Crenated Cell Not Reportable 06/11/20 00:14 Elliptocytes Not Reportable 06/11/20 00:14 Acanthocytes (Spur) Not Reportable 06/11/20 00:14 Rouleaux Not Reportable 06/11/20 00:14 Hemoglobin C Crystals Not Reportable 06/11/20 00:14 Schistocytes Not Reportable 06/11/20 00:14 Malaria parasites Not Reportable 06/11/20 00:14 [place]inson Bodies Not Reportable 06/11/20 00:14 Hem Pathologist Commnt No 06/11/20 00:14 PT 11.5 Sec. (12.2-14.9) L 05/31/20 15:23 INR 0.83 (0.87-1.13) L 05/31/20 15:23 D-Dimer > 46997 ng/mlDDU (0-234) H 06/09/20 09:21 ABG pH 7.431 (7.320-7.450) 06/10/20 13:18 POC ABG pCO2 31.7 mmHg (32.0-48.0) L 06/10/20 13:18 POC ABG pO2 57.9 mmHg (83-108) L 06/10/20 13:18 POC ABG HCO3 20.6 06/10/20 13:18 POC ABG Base Excess -2.5 06/10/20 13:18 ABG Hemoglobin 15.9 (12.0-17.5) 06/10/20 13:18 FiO2 100.0 06/10/20 13:18 Sodium 142 mmol/L (137-145) 06/11/20 00:14 Potassium 4.7 mmol/L (3.6-5.0) 06/11/20 00:14 Chloride 104.9 mmol/L (98-107) 06/11/20 00:14 Carbon Dioxide 18 mmol/L (22-30) L 06/11/20 00:14 Anion Gap 24 mmol/L 06/11/20 00:14 BUN 73 mg/dL (9-20) H 06/11/20 00:14 Creatinine 2.7 mg/dL (0.8-1.3) H 06/11/20 00:14 Estimated GFR 30 ml/min 06/11/20 00:14 BUN/Creatinine Ratio 27 % 06/11/20 00:14 Glucose 216 mg/dL (75-100) H 06/11/20 00:14 POC Glucose 241 (70-105) H 06/11/20 05:27 Hemoglobin A1c 8.5 % (4-6) H 05/31/20 16:49 Calcium 9.1 mg/dL (8.4-10.2) 06/11/20 00:14 Magnesium 2.20 mg/dL (1.7-2.3) 05/31/20 15:23 Ferritin 1045.0 ng/mL (30.0-300.0) H 06/09/20 09:21 Total Bilirubin 0.40 mg/dL (0.1-1.2) 06/11/20 00:14 AST 19 units/L (5-40) 06/11/20 00:14 ALT 23 units/L (7-56) 06/11/20 00:14 Alkaline Phosphatase 134 units/L (35-129) H 06/11/20 00:14 Lactate Dehydrogenase 461 units/L (91-180) H 06/09/20 09:21 Total Creatine Kinase 325 units/L (55-170) H 05/31/20 15:23 Troponin T 0.021 ng/mL (0.00-0.029) 05/31/20 15:23 C-Reactive Protein 9.30 mg/dL (0.00-1.30) H 06/09/20 09:21 NT-Pro-B Natriuret Pep 111.3 pg/mL (0-900) 06/01/20 13:41 Serum Total Protein 6.8 g/dL (6.1-8.1) 06/04/20 04:17 Total Protein 7.6 g/dL (6.3-8.2) 06/11/20 00:14 Albumin 2.7 g/dL (3.9-5) L 06/11/20 00:14 Albumin/Globulin Ratio 0.6 % 06/11/20 00:14 Vmofv-1-Qftsjjgoj 0.5 g/dL (0.2-0.3) H 06/04/20 04:17 Vwpcn-3-Zuryrqilp 1.6 g/dL (0.5-0.9) H 06/04/20 04:17 Beta Globulins 0.6 g/dL (0.2-0.5) H 06/04/20 04:17 Gamma Globulins 1.2 g/dL (0.8-1.7) 06/04/20 04:17 Abnorm Protein Band 1 see below 06/04/20 04:17 PEP Interpretation see below H 06/04/20 04:17 Procalcitonin 0.37 ng/mL (<0.15) 06/05/20 05:01 Urine Color Yellow (Yellow) 06/01/20 Unknown Urine Turbidity Clear (Clear) 06/01/20 Unknown Urine pH 5.0 (5.0-7.0) 06/01/20 Unknown Ur Specific [place] 1.018 (1.003-1.030) 06/01/20 Unknown Urine Protein >500 mg/dL (Negative) 06/01/20 Unknown Urine Glucose (UA) >=500 mg/dL (Negative) 06/01/20 Unknown Urine Ketones Tr mg/dL (Negative) 06/01/20 Unknown Urine Blood Mod (Negative) 06/01/20 Unknown Urine Nitrite Neg (Negative) 06/01/20 Unknown Urine Bilirubin Neg (Negative) 06/01/20 Unknown Urine Urobilinogen < 2.0 mg/dL (<2.0) 06/01/20 Unknown Ur Leukocyte Esterase Neg (Negative) 06/01/20 Unknown Urine WBC (Auto) 4.0 /HPF (0.0-6.0) 06/01/20 Unknown Urine RBC (Auto) 9.0 /HPF (0.0-6.0) 06/01/20 Unknown U Epithel Cells (Auto) 1.0 /HPF (0-13.0) 06/01/20 Unknown Urine Mucus Few /HPF 06/01/20 Unknown Urine Eosinophils None seen (None Seen) 06/01/20 Unknown Urine Creatinine 161.6 mg/dL (0.1-20.0) H 06/01/20 Unknown Urine Sodium 47 mmol/L 06/01/20 Unknown FLACO Screen Negative (Negative) 06/03/20 13:17 Proteinase 3 (PR3) Ab <1.0 AI (<1.0) 06/03/20 13:17 Myeloperoxidase Ab <1.0 AI (<1.0) 06/03/20 13:17 Complement C3 223 mg/dL (82-185) H 06/03/20 10:39 Complement C4 64 mg/dL (15-53) H 06/03/20 10:39 Coronavirus (PCR) Positive (Negative) A 06/01/20 Unknown Hepatitis A IgM Ab Non-reactive (NonReactive) 06/03/20 10:39 Hep Bs Antigen Non-reactive (Negative) 06/03/20 10:39 Hep B Core IgM Ab Non-reactive (NonReactive) 06/03/20 10:39 Hepatitis C Antibody Non-reactive (NonReactive) 06/03/20 10:39 Blood Type A POSITIVE 06/08/20 09:41 Antibody Screen Negative 06/08/20 09:41 Hess/IV: Voiding Method Condom Catheter IV Catheter Type [Right Upper Peripheral IV arm] IV Catheter Type [Right INT / Saline Lock Antecubital] Active Medications - Current Medications Current Medications: Generic Name Dose Route Start Last Admin Trade Name Freq PRN Reason Stop Dose Admin Acetaminophen 650 mg 05/31/20 15:49 Tylenol PO Q6H PRN Pain MILD(1-3)/Fever >100.5/LEBRON Albuterol 2.5 mg 05/31/20 15:49 Proventil IH Q3HRT PRN Shortness Of Breath Atorvastatin Calcium 20 mg 05/31/20 22:00 06/10/20 23:04 Lipitor PO Not Given QHS CHERI Bisacodyl 10 mg 05/31/20 15:57 Dulcolax MS QDAY PRN Constipation unrelieved by MOM Chlorpromazine HCl 10 mg 05/31/20 15:57 Thorazine PO Q6H PRN Hiccups Dexamethasone 6 mg 06/09/20 12:00 06/10/20 10:12 Decadron IV 06/11/20 11:59 6 mg DAILY CHERI Administration Dextrose 50 ml 05/31/20 15:59 06/07/20 10:48 D50w (25gm) Syringe IV 20 ml Q30MIN PRN Administration Hypoglycemia Protocol Diltiazem HCl 90 mg 06/10/20 12:00 06/10/20 20:44 Cardizem PO Not Given TID CHERI Enoxaparin Sodium 100 mg 06/10/20 10:00 06/10/20 09:05 Enoxaparin SUB-Q 100 mg Q24HR CHERI Administration Diltiazem HCl 100 mg in 100 mls @ 5 mls/hr 06/10/20 10:00 06/11/20 03:01 Cardizem/D5w 100mg/100ml IV 15 mg/hr TITR CHERI 15 mls/hr Administration Protocol 5 MG/HR Insulin Glargine 8 units 06/08/20 22:00 06/10/20 23:04 Lantus SUB-Q Not Given QHS [facility] Insulin Human Lispro 0 unit 05/31/20 16:00 06/11/20 05:13 Humalog SUB-Q 4 unit Q6H CHERI Administration Protocol Metoprolol Tartrate 5 mg 06/09/20 14:52 06/11/20 05:13 Metoprolol IV 5 mg Q6HR PRN Administration Tachyarrhythmias Naloxone HCl 0.1 mg 05/31/20 15:49 Naloxone IV Q2MIN PRN Res Rate </= 8 or 02 SAT < 92% Ondansetron HCl 4 mg 05/31/20 15:57 Zofran IV Q8H PRN N/V unrelieved by Reglan Oxycodone/Acetaminophen 1 tab 05/31/20 15:49 06/03/20 00:57 Percocet 5/325 PO 1 tab Q6H PRN Administration Pain, Moderate (4-6) Sodium Chloride 10 ml 05/31/20 22:00 06/10/20 22:23 Sodium Chloride Flush Syringe 10 Ml IV 10 ml BID CHERI Administration Sodium Chloride 10 ml 05/31/20 15:49 Sodium Chloride Flush Syringe 10 Ml IV PRN PRN LINE FLUSH Tizanidine HCl 4 mg 05/31/20 15:57 06/08/20 21:47 Zanaflex PO 4 mg Q8H PRN Administration Muscle Spasm Nutrition/Malnutrition Assess - Dietary Evaluation Nutrition/Malnutrition Findings: Nutrition Notes Start: 06/01/20 10:42 Freq: Status: Active Protocol: Document 06/06/20 12:01 [email or web address] (Rec: 06/06/20 12:19 [email or web address]) Co-Sign 06/06/20 12:01 NHALL Nutrition Notes Initial or Follow up Assessment Current Diagnosis CKD(stage I-IV),Diabetes, Hypertension,Stroke Other Pertinent Diagnosis COVID-19 (+) Current Diet Renal Labs/Tests Reviewed Height 5 ft 9 in Weight 113 kg [place] Body Weight (kg) 72.72 BMI 36.8 Weight Status Obese Subjective/Other Information Unable to reach pt by phone with two attempts. Spoke to RN about intakes. Consumes 100% of meals when not on Bipap. Burn Absent Trauma Absent Minimum of two criteria No #1 Nutrition Diagnosis Altered nutrition-related laboratory values Etiology uncontrolled BG As Evidenced by Signs and Symptoms HgbA1c 8.5 Is patient on ventilator? No Is Patient Ambulatory and/or Out of Bed No REE-([facility]-confined to bed) 2344.476 Kcal/Kg value to use for calculation 16 Approximate Energy Requirements Using 1808 kcal/Kg Additional Notes Protein Needs (1-1.2g/kg AdBW) 92-110g Fluid: 1ml/kcal Nutrition Intervention Change Diet Order: Continue Goal #1 Improve BG control Goal #2 Continued Adequate oral intake Anticipated Discharge Needs: CHO Control diet Follow-Up By: 06/11/20 Additional Comments F/U for intakes and diet education needs
[2020-06-11] MEDS ORDERED: ETOMIDATE 20 MG/10 ML INJ IV ONE (10:00)
[2020-06-11] MEDS: ENOXAPARIN 100 MG/1 ML INJ SUB-Q SCH (10:12)
[2020-06-11] MEDS: dexAMETHasone 4 MG/ML VIAL IV SCH (10:12)
--- NOTE | 2020-06-11 10:24 | Progress Note ---
Assessment and Plan 54 y/o male with acute respiratory failure, secondary to COVID 19 pneumonia and possibly acute renal failure 1. Wean FiO2 for sats >88%, Now on 80%. Will continue bipap therapy for now. Hopeful he will respond. 2. Will change steroids to solumedrol 40q8 as dex ends today. 3. Prone if able to get off continous bipap 4. Follow up renal recs, NO HD per them 5. Now with afib with RVR, reviewed cardiology note. Not able to get PO meds. Spoke with cards and waiting to hear back from them. May need to consider amio load and continuous drip. High risk for intubation. Subjective Date of service: 06/11/20 Principal diagnosis: COVID-19 PNA, AF RVR Interval history: Remains awake and alert. Still on Bipap but down to 80%. Remains tachycardic and now maxed on Dilt drip. Not able to take PO secondary to continuous bipap usage. Objective Vital Signs - 12hr 06/10/20 06/10/20 06/10/20 22:31 22:59 23:01 Temperature Pulse Rate 125 H 124 H 107 H Pulse Rate [ From Monitor] Respiratory 40 H 44 H 36 H Rate Blood Pressure 139/88 124/91 120/89 O2 Sat by Pulse 98 100 99 Oximetry 06/10/20 06/11/20 06/11/20 23:30 00:00 00:10 Temperature 98.1 F Pulse Rate 96 H 128 H 123 H Pulse Rate [ 119 H From Monitor] Respiratory 47 H 39 H Rate Blood Pressure 133/90 138/92 138/92 O2 Sat by Pulse 100 98 Oximetry 06/11/20 06/11/20 06/11/20 00:24 00:30 01:00 Temperature Pulse Rate 79 91 H 83 Pulse Rate [ From Monitor] Respiratory 35 H 40 H 42 H Rate Blood Pressure 134/80 135/84 115/83 O2 Sat by Pulse 100 99 99 Oximetry 06/11/20 06/11/20 06/11/20 01:30 02:00 02:30 Temperature Pulse Rate 109 H 121 H 122 H Pulse Rate [ From Monitor] Respiratory 30 H 17 22 Rate Blood Pressure 119/89 113/92 128/83 O2 Sat by Pulse 99 98 97 Oximetry 09/08/20 09/08/20 09/08/20 03:00 03:30 04:00 Temperature 98 F Pulse Rate 126 H 126 H 128 H Pulse Rate [ 116 H From Monitor] Respiratory 23 25 H 26 H Rate Blood Pressure 131/95 129/93 118/92 O2 Sat by Pulse 97 97 96 Oximetry 06/11/20 06/11/20 06/11/20 04:30 04:33 05:00 Temperature Pulse Rate 136 H 115 H 122 H Pulse Rate [ From Monitor] Respiratory 35 H 42 H 26 H Rate Blood Pressure 135/103 135/103 137/97 O2 Sat by Pulse 96 98 92 Oximetry 06/11/20 06/11/20 06/11/20 05:13 05:30 06:00 Temperature Pulse Rate 128 H 104 H 99 H Pulse Rate [ From Monitor] Respiratory 35 H 19 Rate Blood Pressure 137/97 132/87 114/92 O2 Sat by Pulse 94 94 Oximetry 06/11/20 06/11/20 06/11/20 06:30 07:00 07:30 Temperature Pulse Rate 124 H 124 H 114 H Pulse Rate [ From Monitor] Respiratory 36 H 34 H 39 H Rate Blood Pressure 131/84 133/93 138/82 O2 Sat by Pulse 94 93 95 Oximetry 06/11/20 06/11/20 06/11/20 08:00 08:30 08:50 Temperature 97.4 F L Pulse Rate 126 H 122 H 126 H Pulse Rate [ 120 H From Monitor] Respiratory 25 H 21 40 H Rate Blood Pressure 139/83 135/97 126/79 O2 Sat by Pulse 94 96 95 Oximetry 06/11/20 06/11/20 09:00 09:02 Temperature Pulse Rate 126 H 123 H Pulse Rate [ From Monitor] Respiratory 41 H Rate Blood Pressure 128/86 128/86 O2 Sat by Pulse 94 Oximetry Constitutional: no acute distress, lethargic, other (Morbidly obese) Eyes: non-icteric ENT: oropharynx moist, other (Crowded oropharynx) Neck: supple Ascultation: Bilateral: diminished breath sounds Cardiovascular: regular rate and rhythm Gastrointestinal: normoactive bowel sounds, non-distended, other (Obese) Integumentary: normal Extremities: no cyanosis Neurologic: non-focal exam CBC and BMP: 06/11/20 00:14 06/11/20 00:14 ABG, PT/INR, D-dimer: ABG ABG pH 7.431 (7.320-7.450) 06/10/20 13:18 POC ABG pCO2 31.7 mmHg (32.0-48.0) L 06/10/20 13:18 POC ABG pO2 57.9 mmHg (83-108) L 06/10/20 13:18 POC ABG HCO3 20.6 06/10/20 13:18 PT/INR, D-dimer PT 11.5 Sec. (12.2-14.9) L 05/31/20 15:23 INR 0.83 (0.87-1.13) L 05/31/20 15:23 D-Dimer > 06420 ng/mlDDU (0-234) H 06/09/20 09:21 Abnormal lab findings: Abnormal Labs 05/31/20 05/31/20 05/31/20 15:23 15:23 15:23 WBC RBC MCHC RDW Lymph % (Auto) Lymph # Mathews # Seg Neutrophils % Seg Neuts % (Manual) Lymphocytes % (Manual) Seg Neutrophils # Seg Neutrophils # Man Lymphocytes # (Manual) Monocytes # (Manual) PT INR D-Dimer POC ABG pCO2 POC ABG pO2 Sodium Potassium Chloride Carbon Dioxide BUN Creatinine Glucose 280 H POC Glucose Hemoglobin A1c Calcium Ferritin 583.4 H Alkaline Phosphatase Lactate Dehydrogenase 392 H Total Creatine Kinase 325 H C-Reactive Protein 14.30 H Albumin Blbrh-8-Rgduwdjor Nnrey-2-Qhpbjulze Beta Globulins PEP Interpretation Urine Creatinine Complement C3 Complement C4 Coronavirus (PCR) 05/31/20 05/31/20 05/31/20 15:23 15:23 15:23 WBC RBC MCHC RDW 15.7 H Lymph % (Auto) 12.9 L Lymph # 1.0 L Mathews # Seg Neutrophils % 81.7 H Seg Neuts % (Manual) Lymphocytes % (Manual) Seg Neutrophils # Seg Neutrophils # Man Lymphocytes # (Manual) Monocytes # (Manual) PT 11.5 L INR 0.83 L D-Dimer POC ABG pCO2 POC ABG pO2 Sodium 134 L Potassium Chloride 97.2 L Carbon Dioxide BUN 28 H Creatinine 3.0 H Glucose 279 H POC Glucose Hemoglobin A1c Calcium Ferritin Alkaline Phosphatase Lactate Dehydrogenase Total Creatine Kinase C-Reactive Protein Albumin 3.3 L Znfef-4-Vfaovpbhi Ptcpx-6-Fqxavjepi Beta Globulins PEP Interpretation Urine Creatinine Complement C3 Complement C4 Coronavirus (PCR) 05/31/20 05/31/2005/31/20 16:47 16:49 16:49 WBC RBC MCHC RDW Lymph % (Auto) Lymph # Mathews # Seg Neutrophils % Seg Neuts % (Manual) Lymphocytes % (Manual) Seg Neutrophils # Seg Neutrophils # Man Lymphocytes # (Manual) Monocytes # (Manual) PT INR D-Dimer 738.85 H POC ABG pCO2 POC ABG pO2 Sodium Potassium Chloride Carbon Dioxide BUN Creatinine Glucose 258 H POC Glucose 239 H Hemoglobin A1c Calcium Ferritin Alkaline Phosphatase Lactate Dehydrogenase 409 H Total Creatine Kinase C-Reactive Protein 14.00 H Albumin Slkaf-2-Efjowensq Rbhxv-3-Gerbffauy Beta Globulins PEP Interpretation Urine Creatinine Complement C3 Complement C4 Coronavirus (PCR) 05/31/20 05/31/20 06/01/20 16:49 16:49 10:15 WBC RBC MCHC RDW Lymph % (Auto) Lymph # Mathews # Seg Neutrophils % Seg Neuts % (Manual) Lymphocytes % (Manual) Seg Neutrophils # Seg Neutrophils # Man Lymphocytes # (Manual) Monocytes # (Manual) PT INR D-Dimer POC ABG pCO2 POC ABG pO2 Sodium Potassium Chloride Carbon Dioxide BUN Creatinine Glucose POC Glucose 277 H Hemoglobin A1c 8.5 H Calcium Ferritin 599.0 H Alkaline Phosphatase Lactate Dehydrogenase Total Creatine Kinase C-Reactive Protein Albumin Vcvon-3-Kqifcggtf Dcrpl-0-Pdjkwiplj Beta Globulins PEP Interpretation Urine Creatinine Complement C3 Complement C4 Coronavirus (PCR) 06/01/20 06/01/20 06/01/20 13:41 13:41 16:10 WBC RBC MCHC RDW 15.3 H Lymph % (Auto) 8.4 L Lymph # 0.9 L Mathews # Seg Neutrophils % 86.9 H Seg Neuts % (Manual) Lymphocytes % (Manual) Seg Neutrophils # 9.3 H Seg Neutrophils # Man Lymphocytes # (Manual) Monocytes # (Manual) PT INR D-Dimer POC ABG pCO2 POC ABG pO2 Sodium 136 L Potassium 5.5 H Chloride Carbon Dioxide 20 L BUN 42 H Creatinine 3.5 H Glucose 278 H POC Glucose 372 H Hemoglobin A1c Calcium Ferritin Alkaline Phosphatase Lactate Dehydrogenase Total Creatine Kinase C-Reactive Protein Albumin Jjqav-4-Rxowztxfv Bnuir-8-Devazckmj Beta Globulins PEP Interpretation Urine Creatinine Complement C3 Complement C4 Coronavirus (PCR) 06/01/20 06/01/20 06/01/20 23:12 Unknown Unknown WBC RBC MCHC RDW Lymph % (Auto) Lymph # Mathews # Seg Neutrophils % Seg Neuts % (Manual) Lymphocytes % (Manual) Seg Neutrophils # Seg Neutrophils # Man Lymphocytes # (Manual) Monocytes # (Manual) PT INR D-Dimer POC ABG pCO2 POC ABG pO2 Sodium Potassium Chloride Carbon Dioxide BUN Creatinine Glucose POC Glucose 398 H Hemoglobin A1c Calcium Ferritin Alkaline Phosphatase Lactate Dehydrogenase Total Creatine Kinase C-Reactive Protein Albumin Rzjdf-1-Xjalmhomv Paixe-7-Vnuefwzsd Beta Globulins PEP Interpretation Urine Creatinine 161.6 H Complement C3 Complement C4 Coronavirus (PCR) Positive A 06/02/20 06/02/20 06/02/20 04:55 04:55 05:33 WBC 14.7 H RBC MCHC RDW 15.4 H Lymph % (Auto) 7.1 L Lymph # 1.1 L Mathews # Seg Neutrophils % 89.3 H Seg Neuts % (Manual) Lymphocytes % (Manual) Seg Neutrophils # 13.2 H Seg Neutrophils # Man Lymphocytes # (Manual) Monocytes # (Manual) PT INR D-Dimer POC ABG pCO2 POC ABG pO2 Sodium 136 L Potassium Chloride 97.2 L Carbon Dioxide 21 L BUN 47 H Creatinine 3.5 H Glucose 244 H POC Glucose 262 H Hemoglobin A1c Calcium Ferritin Alkaline Phosphatase Lactate Dehydrogenase Total Creatine Kinase C-Reactive Protein Albumin 3.2 L Pljjr-8-Pcqqbmlnc Iqeaq-8-Mjzhxrkot Beta Globulins PEP Interpretation Urine Creatinine Complement C3 Complement C4 Coronavirus (PCR) 06/02/20 06/02/20 06/02/20 10:55 16:49 22:15 WBC RBC MCHC RDW Lymph % (Auto) Lymph # Mathews # Seg Neutrophils % Seg Neuts % (Manual) Lymphocytes % (Manual) Seg Neutrophils # Seg Neutrophils # Man Lymphocytes # (Manual) Monocytes # (Manual) PT INR D-Dimer POC ABG pCO2 POC ABG pO2 Sodium Potassium Chloride Carbon Dioxide BUN Creatinine Glucose POC Glucose 160 H 214 H 292 H Hemoglobin A1c Calcium Ferritin Alkaline Phosphatase Lactate Dehydrogenase Total Creatine Kinase C-Reactive Protein Albumin Tfpro-7-Ldhppjuhj Rlibx-3-Lwgalxxhf Beta Globulins PEP Interpretation Urine Creatinine Complement C3 Complement C4 Coronavirus (PCR) 06/02/20 06/03/20 06/03/20 23:47 05:18 05:18 WBC 18.4 H RBC MCHC RDW 15.3 H Lymph % (Auto) Lymph # Mathews # Seg Neutrophils % Seg Neuts % (Manual) 91.0 H Lymphocytes % (Manual) 8.0 L Seg Neutrophils # Seg Neutrophils # Man 16.7 H Lymphocytes # (Manual) Monocytes # (Manual) PT INR D-Dimer POC ABG pCO2 POC ABG pO2 Sodium Potassium Chloride Carbon Dioxide 20 L BUN 50 H Creatinine 3.1 H Glucose 248 H POC Glucose 292 H Hemoglobin A1c Calcium Ferritin Alkaline Phosphatase Lactate Dehydrogenase Total Creatine Kinase C-Reactive Protein Albumin 2.8 L Yhjmx-4-Ndtdkitxz Slywk-5-Ykrrefdwn Beta Globulins PEP Interpretation Urine Creatinine Complement C3 Complement C4 Coronavirus (PCR) 06/03/20 06/03/20 06/03/20 05:20 10:39 10:39 WBC RBC MCHC RDW Lymph % (Auto) Lymph # Mathews # Seg Neutrophils % Seg Neuts % (Manual) Lymphocytes % (Manual) Seg Neutrophils # Seg Neutrophils # Man Lymphocytes # (Manual) Monocytes # (Manual) PT INR D-Dimer POC ABG pCO2 POC ABG pO2 Sodium Potassium Chloride Carbon Dioxide BUN Creatinine Glucose POC Glucose 208 H Hemoglobin A1c Calcium Ferritin Alkaline Phosphatase Lactate Dehydrogenase Total Creatine Kinase C-Reactive Protein Albumin Bklxe-8-Uyyvcecsr Hzdpm-4-Tzkzgcvxt Beta Globulins PEP Interpretation Urine Creatinine Complement C3 223 H Complement C4 64 H Coronavirus (PCR) 06/03/20 06/03/20 06/03/20 11:40 13:06 16:58 WBC RBC MCHC RDW Lymph % (Auto) Lymph # Mathews # Seg Neutrophils % Seg Neuts % (Manual) Lymphocytes % (Manual) Seg Neutrophils # Seg Neutrophils # Man Lymphocytes # (Manual) Monocytes # (Manual) PT INR D-Dimer POC ABG pCO2 POC ABG pO2 Sodium Potassium Chloride Carbon Dioxide BUN Creatinine Glucose POC Glucose 180 H 167 H 152 H Hemoglobin A1c Calcium Ferritin Alkaline Phosphatase Lactate Dehydrogenase Total Creatine Kinase C-Reactive Protein Albumin Alfmr-5-Ynuxoensr Bljsv-8-Zpwdansme Beta Globulins PEP Interpretation Urine Creatinine Complement C3 Complement C4 Coronavirus (PCR) 06/04/20 06/04/20 06/04/20 00:07 04:17 04:17 WBC 20.8 H RBC 5.20 H MCHC RDW 15.7 H Lymph % (Auto) Lymph # Mathews # Seg Neutrophils % Seg Neuts % (Manual) 91.0 H Lymphocytes % (Manual) 4.0 L Seg Neutrophils # Seg Neutrophils # Man 18.9 H Lymphocytes # (Manual) 0.8 L Monocytes # (Manual) 1.0 H PT INR D-Dimer POC ABG pCO2 POC ABG pO2 Sodium 135 L Potassium 5.1 H Chloride 97.8 L Carbon Dioxide 20 L BUN 56 H Creatinine 3.1 H Glucose 178 H POC Glucose 206 H Hemoglobin A1c Calcium Ferritin Alkaline Phosphatase Lactate Dehydrogenase Total Creatine Kinase C-Reactive Protein Albumin 3.0 L Yhouj-4-Uuzgwhsgc Chjyu-4-Kngejlsjs Beta Globulins PEP Interpretation Urine Creatinine Complement C3 Complement C4 Coronavirus (PCR) 06/04/20 06/04/20 06/04/20 04:17 05:35 11:08 WBC RBC MCHC RDW Lymph % (Auto) Lymph # Mathews # Seg Neutrophils % Seg Neuts % (Manual) Lymphocytes % (Manual) Seg Neutrophils # Seg Neutrophils # Man Lymphocytes # (Manual) Monocytes # (Manual) PT INR D-Dimer POC ABG pCO2 POC ABG pO2 Sodium Potassium Chloride Carbon Dioxide BUN Creatinine Glucose POC Glucose 166 H 159 H Hemoglobin A1c Calcium Ferritin Alkaline Phosphatase Lactate Dehydrogenase Total Creatine Kinase C-Reactive Protein Albumin 2.6 L Wklzf-8-Znnjpuzni 0.5 H Ptwaw-3-Totkxtqdw 1.6 H Beta Globulins 0.6 H PEP Interpretation see below H Urine Creatinine Complement C3 Complement C4 Coronavirus (PCR) 06/04/20 06/05/20 06/05/20 18:06 00:22 04:56 WBC 20.2 H RBC MCHC RDW 15.6 H Lymph % (Auto) 4.7 L Lymph # 0.9 L Mathews # 1.0 H Seg Neutrophils % Seg Neuts % (Manual) Lymphocytes % (Manual) Seg Neutrophils # 18.2 H Seg Neutrophils # Man Lymphocytes # (Manual) Monocytes # (Manual) PT INR D-Dimer POC ABG pCO2 POC ABG pO2 Sodium Potassium Chloride Carbon Dioxide BUN Creatinine Glucose POC Glucose 190 H 234 H Hemoglobin A1c Calcium Ferritin Alkaline Phosphatase Lactate Dehydrogenase Total Creatine Kinase C-Reactive Protein Albumin Ipzql-8-Oqrcoxgvs Teydc-8-Vtfdjhswk Beta Globulins PEP Interpretation Urine Creatinine Complement C3 Complement C4 Coronavirus (PCR) 06/05/20 06/05/20 06/05/20 04:56 05:43 09:27 WBC RBC MCHC RDW Lymph % (Auto) Lymph # Mathews # Seg Neutrophils % Seg Neuts % (Manual) Lymphocytes % (Manual) Seg Neutrophils # Seg Neutrophils # Man Lymphocytes # (Manual) Monocytes # (Manual) PT INR D-Dimer POC ABG pCO2 POC ABG pO2 Sodium Potassium Chloride Carbon Dioxide 21 L BUN 63 H Creatinine 3.0 H Glucose 170 H POC Glucose 156 H 106 H Hemoglobin A1c Calcium Ferritin Alkaline Phosphatase Lactate Dehydrogenase Total Creatine Kinase C-Reactive Protein Albumin 3.0 L Ucfjq-4-Dgkibxamd Peaoh-1-Pnwvgtbtx Beta Globulins PEP Interpretation Urine Creatinine Complement C3 Complement C4 Coronavirus (PCR) 06/05/20 06/05/20 06/06/20 15:50 23:36 10:31 WBC 18.3 H RBC MCHC RDW 15.6 H Lymph % (Auto) Lymph # Mathews # Seg Neutrophils % Seg Neuts % (Manual) 90.0 H Lymphocytes % (Manual) 6.0 L Seg Neutrophils # Seg Neutrophils # Man 16.5 H Lymphocytes # (Manual) 1.1 L Monocytes # (Manual) PT INR D-Dimer POC ABG pCO2 POC ABG pO2 Sodium Potassium Chloride Carbon Dioxide BUN Creatinine Glucose POC Glucose 197 H 193 H Hemoglobin A1c Calcium Ferritin Alkaline Phosphatase Lactate Dehydrogenase Total Creatine Kinase C-Reactive Protein Albumin Visrj-1-Gfamjucnm Tnlcr-8-Wrbvwpzzv Beta Globulins PEP Interpretation Urine Creatinine Complement C3 Complement C4 Coronavirus (PCR) 06/06/20 06/06/20 06/06/20 10:31 12:34 17:34 WBC RBC MCHC RDW Lymph % (Auto) Lymph # Mathews # Seg Neutrophils % Seg Neuts % (Manual) Lymphocytes % (Manual) Seg Neutrophils # Seg Neutrophils # Man Lymphocytes # (Manual) Monocytes # (Manual) PT INR D-Dimer POC ABG pCO2 POC ABG pO2 Sodium Potassium Chloride Carbon Dioxide BUN 65 H Creatinine 2.7 H Glucose 61 L POC Glucose 50 L 117 H Hemoglobin A1c Calcium Ferritin Alkaline Phosphatase Lactate Dehydrogenase Total Creatine Kinase C-Reactive Protein Albumin Wtafr-0-Ycbjbossn Wkxpx-0-Sbirljmya Beta Globulins PEP Interpretation Urine Creatinine Complement C3 Complement C4 Coronavirus (PCR) 06/07/20 06/07/20 06/07/20 04:40 04:40 06:07 WBC 16.3 H RBC MCHC RDW 15.6 H Lymph % (Auto) 4.9 L Lymph # 0.8 L Mathews # 0.9 H Seg Neutrophils % 89.3 H Seg Neuts % (Manual) Lymphocytes % (Manual) Seg Neutrophils # 14.6 H Seg Neutrophils # Man Lymphocytes # (Manual) Monocytes # (Manual) PT INR D-Dimer POC ABG pCO2 POC ABG pO2 Sodium Potassium 5.1 H D Chloride Carbon Dioxide BUN 67 H Creatinine 2.6 H Glucose 52 L POC Glucose 45 L Hemoglobin A1c Calcium Ferritin Alkaline Phosphatase Lactate Dehydrogenase Total Creatine Kinase C-Reactive Protein Albumin Onvih-5-Dngqvtisj Kmtcf-2-Fxhabjpan Beta Globulins PEP Interpretation Urine Creatinine Complement C3 Complement C4 Coronavirus (PCR) 06/07/20 06/07/20 06/07/20 10:34 10:49 12:26 WBC RBC MCHC RDW Lymph % (Auto) Lymph # Mathews # Seg Neutrophils % Seg Neuts % (Manual) Lymphocytes % (Manual) Seg Neutrophils # Seg Neutrophils # Man Lymphocytes # (Manual) Monocytes # (Manual) PT INR D-Dimer POC ABG pCO2 POC ABG pO2 Sodium Potassium Chloride Carbon Dioxide BUN Creatinine Glucose POC Glucose 57 L 54 L 192 H Hemoglobin A1c Calcium Ferritin Alkaline Phosphatase Lactate Dehydrogenase Total Creatine Kinase C-Reactive Protein Albumin Xnxwa-6-Spvucoayq Slpac-5-Hnmjqjdgs Beta Globulins PEP Interpretation Urine Creatinine Complement C3 Complement C4 Coronavirus (PCR) 06/07/20 06/08/20 06/08/20 17:42 00:12 04:52 WBC 18.8 H RBC MCHC RDW 15.6 H Lymph % (Auto) 4.6 L Lymph # 0.9 L Mathews # 1.0 H Seg Neutrophils % 89.7 H Seg Neuts % (Manual) Lymphocytes % (Manual) Seg Neutrophils # 16.9 H Seg Neutrophils # Man Lymphocytes # (Manual) Monocytes # (Manual) PT INR D-Dimer POC ABG pCO2 POC ABG pO2 Sodium Potassium Chloride Carbon Dioxide BUN Creatinine Glucose POC Glucose 241 H 285 H Hemoglobin A1c Calcium Ferritin Alkaline Phosphatase Lactate Dehydrogenase Total Creatine Kinase C-Reactive Protein Albumin Ybqkl-0-Gesexmemc Pasbr-5-Tapowvvyt Beta Globulins PEP Interpretation Urine Creatinine Complement C3 Complement C4 Coronavirus (PCR) 06/08/20 06/08/20 06/08/20 04:52 05:41 12:44 WBC RBC MCHC RDW Lymph % (Auto) Lymph # Mathews # Seg Neutrophils % Seg Neuts % (Manual) Lymphocytes % (Manual) Seg Neutrophils # Seg Neutrophils # Man Lymphocytes # (Manual) Monocytes # (Manual) PT INR D-Dimer POC ABG pCO2 POC ABG pO2 Sodium Potassium Chloride Carbon Dioxide BUN 66 H Creatinine 2.6 H Glucose 175 H POC Glucose 177 H 172 H Hemoglobin A1c Calcium Ferritin Alkaline Phosphatase Lactate Dehydrogenase Total Creatine Kinase C-Reactive Protein Albumin Vmbqt-8-Qgnpqdoue Ufxqa-5-Kpeylqfef Beta Globulins PEP Interpretation Urine Creatinine Complement C3 Complement C4 Coronavirus (PCR) 06/08/20 06/08/20 06/09/20 18:18 23:39 01:03 WBC 19.6 H RBC MCHC 36 H RDW 15.5 H Lymph % (Auto) 5.3 L Lymph # 1.0 L Mathews # Seg Neutrophils % Seg Neuts % (Manual) Lymphocytes % (Manual) Seg Neutrophils # 17.7 H Seg Neutrophils # Man Lymphocytes # (Manual) Monocytes # (Manual) PT INR D-Dimer POC ABG pCO2 POC ABG pO2 Sodium Potassium Chloride Carbon Dioxide BUN Creatinine Glucose POC Glucose 251 H 196 H Hemoglobin A1c Calcium Ferritin Alkaline Phosphatase Lactate Dehydrogenase Total Creatine Kinase C-Reactive Protein Albumin Pctqf-4-Lcbalgecn Jmspe-8-Gjtneymdd Beta Globulins PEP Interpretation Urine Creatinine Complement C3 Complement C4 Coronavirus (PCR) 06/09/20 06/09/20 06/09/20 01:03 05:42 06:02 WBC RBC MCHC RDW Lymph % (Auto) Lymph # Mathews # Seg Neutrophils % Seg Neuts % (Manual) Lymphocytes % (Manual) Seg Neutrophils # Seg Neutrophils # Man Lymphocytes # (Manual) Monocytes # (Manual) PT INR D-Dimer POC ABG pCO2 POC ABG pO2 Sodium 136 L Potassium Chloride Carbon Dioxide 20 L 20 L BUN 68 H 66 H Creatinine 2.7 H 2.7 H Glucose 180 H 141 H POC Glucose 136 H Hemoglobin A1c Calcium 8.3 L Ferritin Alkaline Phosphatase Lactate Dehydrogenase Total Creatine Kinase C-Reactive Protein Albumin 2.6 L Ueapo-2-Ffeugaago Miaiu-9-Pambbjdja Beta Globulins PEP Interpretation Urine Creatinine Complement C3 Complement C4 Coronavirus (PCR) 06/09/20 06/09/20 06/09/20 09:21 09:21 09:21 WBC RBC MCHC RDW Lymph % (Auto) Lymph # Mathews # Seg Neutrophils % Seg Neuts % (Manual) Lymphocytes % (Manual) Seg Neutrophils # Seg Neutrophils # Man Lymphocytes # (Manual) Monocytes # (Manual) PT INR D-Dimer > 93618 H POC ABG pCO2 POC ABG pO2 Sodium Potassium Chloride Carbon Dioxide BUN Creatinine Glucose 195 H POC Glucose Hemoglobin A1c Calcium Ferritin 1045.0 H Alkaline Phosphatase Lactate Dehydrogenase 461 H Total Creatine Kinase C-Reactive Protein 9.30 H Albumin Ilcrj-2-Hojtudmrb Bfuvz-5-Azcboypkc Beta Globulins PEP Interpretation Urine Creatinine Complement C3 Complement C4 Coronavirus (PCR) 06/09/20 06/09/20 06/09/20 10:26 17:30 22:22 WBC RBC MCHC RDW Lymph % (Auto) Lymph # Mathews # Seg Neutrophils % Seg Neuts % (Manual) Lymphocytes % (Manual) Seg Neutrophils # Seg Neutrophils # Man Lymphocytes # (Manual) Monocytes # (Manual) PT INR D-Dimer POC ABG pCO2 POC ABG pO2 Sodium Potassium Chloride Carbon Dioxide BUN Creatinine Glucose POC Glucose 178 H 219 H 167 H Hemoglobin A1c Calcium Ferritin Alkaline Phosphatase Lactate Dehydrogenase Total Creatine Kinase C-Reactive Protein Albumin Uabpm-6-Yckullikq Gjseg-3-Ftsaraxbl Beta Globulins PEP Interpretation Urine Creatinine Complement C3 Complement C4 Coronavirus (PCR) 06/10/20 06/10/20 06/10/20 00:34 00:34 04:42 WBC 18.6 H RBC MCHC RDW 15.6 H Lymph % (Auto) Lymph # Mathews # Seg Neutrophils % Seg Neuts % (Manual) 94.0 H Lymphocytes % (Manual) 2.0 L Seg Neutrophils # Seg Neutrophils # Man 17.5 H Lymphocytes # (Manual) 0.4 L Monocytes # (Manual) PT INR D-Dimer POC ABG pCO2 POC ABG pO2 Sodium Potassium 5.5 H 6.0 H Chloride Carbon Dioxide 21 L 19 L BUN 70 H 68 H Creatinine 2.6 H 2.8 H Glucose 177 H 185 H POC Glucose Hemoglobin A1c Calcium Ferritin Alkaline Phosphatase 134 H Lactate Dehydrogenase Total Creatine Kinase C-Reactive Protein Albumin 2.9 L Mgdom-3-Yleqsyxui Umoph-5-Zrhwqwhal Beta Globulins PEP Interpretation Urine Creatinine Complement C3 Complement C4 Coronavirus (PCR) 06/10/20 06/10/20 06/10/20 05:54 11:04 13:18 WBC RBC MCHC RDW Lymph % (Auto) Lymph # Mathews # Seg Neutrophils % Seg Neuts % (Manual) Lymphocytes % (Manual) Seg Neutrophils # Seg Neutrophils # Man Lymphocytes # (Manual) Monocytes # (Manual) PT INR D-Dimer POC ABG pCO2 31.7 L POC ABG pO2 57.9 L Sodium Potassium Chloride Carbon Dioxide BUN Creatinine Glucose POC Glucose 171 H 243 H Hemoglobin A1c Calcium Ferritin Alkaline Phosphatase Lactate Dehydrogenase Total Creatine Kinase C-Reactive Protein Albumin Rljft-0-Vrigmttdm Ooyvx-4-Npayjedgf Beta Globulins PEP Interpretation Urine Creatinine Complement C3 Complement C4 Coronavirus (PCR) 06/10/20 06/11/20 06/11/20 17:28 00:14 00:14 WBC 21.1 H RBC MCHC RDW 15.4 H Lymph % (Auto) Lymph # Mathews # Seg Neutrophils % Seg Neuts % (Manual) 93.0 H Lymphocytes % (Manual) 5.0 L Seg Neutrophils # Seg Neutrophils # Man 19.6 H Lymphocytes # (Manual) 1.1 L Monocytes # (Manual) PT INR D-Dimer POC ABG pCO2 POC ABG pO2 Sodium Potassium Chloride Carbon Dioxide 18 L BUN 73 H Creatinine 2.7 H Glucose 216 H POC Glucose 265 H Hemoglobin A1c Calcium Ferritin Alkaline Phosphatase 134 H Lactate Dehydrogenase Total Creatine Kinase C-Reactive Protein Albumin 2.7 L Sstye-2-Vwaexiaop Eoern-2-Wphuxbigy Beta Globulins PEP Interpretation Urine Creatinine Complement C3 Complement C4 Coronavirus (PCR) 06/11/20 05:27 WBC RBC MCHC RDW Lymph % (Auto) Lymph # Mathews # Seg Neutrophils % Seg Neuts % (Manual) Lymphocytes % (Manual) Seg Neutrophils # Seg Neutrophils # Man Lymphocytes # (Manual) Monocytes # (Manual) PT INR D-Dimer POC ABG pCO2 POC ABG pO2 Sodium Potassium Chloride Carbon Dioxide BUN Creatinine Glucose POC Glucose 241 H Hemoglobin A1c Calcium Ferritin Alkaline Phosphatase Lactate Dehydrogenase Total Creatine Kinase C-Reactive Protein Albumin Aaeoi-0-Oiqjeldvm Hvpvp-7-Btplqarzh Beta Globulins PEP Interpretation Urine Creatinine Complement C3 Complement C4 Coronavirus (PCR)
--- NOTE | 2020-06-11 10:49 | Progress Note ---
Assessment and Plan Optimize HR - initiate IV amio and transition off cardizem gtt, pt unable to tolerate PO intake at this time due to continuous BiPAP therapy. Cont full dosage Lovenox BID and consider transition to OAC prior to discharge. Will obtain echo after COVID-19 infection is adequately treated. DDimer elevated - recommend r/o PE per primary/critical care team once medically stabilized. The patient has been seen in conjunction with Dr. Vega who agrees with the assessment and plan of care. - Patient Problems (1) Acute respiratory failure with hypoxia Current Visit: Yes Status: Acute (2) Pneumonia due to COVID-19 virus Current Visit: Yes Status: Acute (3) Paroxysmal atrial fibrillation with RVR Current Visit: Yes Status: Acute (4) Elevated d-dimer Current Visit: Yes Status: Acute (5) Acute kidney injury superimposed on CKD Current Visit: Yes Status: Acute (6) Hyperkalemia Current Visit: Yes Status: Acute (7) HTN (hypertension) Current Visit: Yes Status: Chronic Qualifiers: Hypertension type: essential hypertension Qualified Code(s): I10 - Essential (primary) hypertension (8) Diabetes Current Visit: Yes Status: Chronic Qualifiers: Diabetes mellitus type: type 2 Diabetes mellitus superintendent container terminal insulin use: with half-way use Diabetes mellitus complication status: with hyperglycemia Qualified Code(s): E11.65 - Type 2 diabetes mellitus with hyperglycemia; Z79.4 - intermodal truck driver (current) use of insulin Subjective Date of service: 06/11/20 Principal diagnosis: COVID-19 PNA, AF RVR Interval history: pt resting in bed, on continuous BiPAP. in AFib RVR HR 130s on telemetry, cardizem gtt infusing @ 15mg/hr. Objective Last Vital Signs Temp 97.4 F L 06/11/20 08:00 Pulse 122 H 06/11/20 10:00 Resp 35 H 06/11/20 10:00 BP 127/90 06/11/20 10:00 Pulse Ox 90 06/11/20 10:00 - Physical Examination General: Other (on BiPAP) Neck: Positive: neck supple Cardiac: Positive: irregularly irregular, S1/S2, Tachycardia Lungs: Positive: Decreased Breath Sounds, Oxygen Abdomen: Negative: Tender Skin: Negative: Rash Musculoskeletal: No Pain Extremities: Absent: edema - Labs and Meds Cardiac Enzymes 06/11/20 Range/Units 00:14 AST 19 (5-40) units/L CBC 06/11/20 Range/Units 00:14 WBC 21.1 H (4.5-11.0) K/mm3 RBC 4.86 (3.65-5.03) M/mm3 Hgb 14.3 (11.8-15.2) gm/dl Hct 42.2 (35.5-45.6) % Plt Count 282 (140-440) K/mm3 Comprehensive Metabolic Panel 06/10/20 06/11/20 Range/Units 14:22 00:14 Sodium 142 (137-145) mmol/L Potassium 4.7 D 4.7 (3.6-5.0) mmol/L Chloride 104.9 (98-107) mmol/L Carbon Dioxide 18 L (22-30) mmol/L BUN 73 H (9-20) mg/dL Creatinine 2.7 H (0.8-1.3) mg/dL Glucose 216 H (75-100) mg/dL Calcium 9.1 (8.4-10.2) mg/dL AST 19 (5-40) units/L ALT 23 (7-56) units/L Alkaline Phosphatase 134 H (35-129) units/L Total Protein 7.6 (6.3-8.2) g/dL Albumin 2.7 L (3.9-5) g/dL - Imaging and Cardiology EKG: report reviewed, image reviewed Echo: pending - Telemetry EKG Rhythm: Atrial Fibrillation
[2020-06-11] MEDS ORDERED: AMIODARONE 150 MG in DEXTROSE 5% IN WATER 97 ML IV ONE (11:30)
[2020-06-11] MEDS: AMIODARONE 900 MG in DEXTROSE 5% IN WATER 482 ML IV SCH (12:26)
--- NOTE | 2020-06-11 12:38 | Progress Note ---
Assessment and Plan 1. Acute kidney injury: KEITH superimposed on CKD stage 3 in the setting of severe COVID infection. Renal US pending. UA results noted. Monitor renal function. Creatinine leveled off. Avoid nephrotoxic agents. Meds dosage based on GFR. Monitor for DOUBLE NEEDLE STITCHER needs. 2. FEN: Hyperkalemia, improved, monitor. Metabolic acidosis, monitor. Monitor lytes and volume status. 3. Acute hypoxic respiratory failure: 2/2 COVID-19 PNA. On HFNC O2 / BIPAP. Followed by Pulmonary. 4. Bilateral COVID-19 PNA: Followed by ID. 5. A.fib with RVR: On Amio drip. 6. DM with hyperglycemia: Accu-Check, sliding scale coverage, ADA diet. 7. Hypertension: Monitor BP. - Subjective: Patient was seen and examined from outside the [facility]. In ICU. D/w RN. - General Appearance General appearance: well-developed, well-nourished, appears stated age, no distress, on BIPAP HEENT: ATNC Neurologic: appears sleeping Tele: A.fib with RVR Subjective Date of service: 06/11/20 Principal diagnosis: COVID-19 PNA, AF RVR Objective - Vital Signs Vital signs: Vital Signs - 12hr 06/11/20 06/11/20 06/11/20 01:00 01:30 02:00 Temperature Pulse Rate 83 109 H 121 H Pulse Rate [ From Monitor] Respiratory 42 H 30 H 17 Rate Blood Pressure 115/83 119/89 113/92 O2 Sat by Pulse 99 99 98 Oximetry 06/11/20 06/11/20 06/11/20 02:30 03:00 03:30 Temperature Pulse Rate 122 H 126 H 126 H Pulse Rate [ From Monitor] Respiratory 22 23 25 H Rate Blood Pressure 128/83 131/95 129/93 O2 Sat by Pulse 97 97 97 Oximetry 06/11/20 06/11/20 06/11/20 04:00 04:30 04:33 Temperature 98 F Pulse Rate 128 H 136 H 115 H Pulse Rate [ 116 H From Monitor] Respiratory 26 H 35 H 42 H Rate Blood Pressure 118/92 135/103 135/103 O2 Sat by Pulse 96 96 98 Oximetry 06/11/20 06/11/20 06/11/20 05:00 05:13 05:30 Temperature Pulse Rate 122 H 128 H 104 H Pulse Rate [ From Monitor] Respiratory 26 H 35 H Rate Blood Pressure 137/97 137/97 132/87 O2 Sat by Pulse 92 94 Oximetry 06/11/20 06/11/20 06/11/20 06:00 06:30 07:00 Temperature Pulse Rate 99 H 124 H 124 H Pulse Rate [ From Monitor] Respiratory 19 36 H 34 H Rate Blood Pressure 114/92 131/84 133/93 O2 Sat by Pulse 94 94 93 Oximetry 06/11/20 06/11/20 06/11/20 07:30 08:00 08:30 Temperature 97.4 F L Pulse Rate 114 H 126 H 122 H Pulse Rate [ 120 H From Monitor] Respiratory 39 H 25 H 21 Rate Blood Pressure 138/82 139/83 135/97 O2 Sat by Pulse 95 94 96 Oximetry 06/11/20 06/11/20 06/11/20 08:50 09:00 09:02 Temperature Pulse Rate 126 H 126 H 123 H Pulse Rate [ From Monitor] Respiratory 40 H 41 H Rate Blood Pressure 126/79 128/86 128/86 O2 Sat by Pulse 95 94 Oximetry 06/11/20 06/11/20 09:30 10:00 Temperature Pulse Rate 128 H 122 H Pulse Rate [ From Monitor] Respiratory 36 H 35 H Rate Blood Pressure 139/89 127/90 O2 Sat by Pulse 96 90 Oximetry - Lab 06/11/20 00:14 06/11/20 00:14 Most recent lab results ABG pH 7.431 (7.320-7.450) 06/10/20 13:18 Calcium 9.1 mg/dL (8.4-10.2) 06/11/20 00:14 Magnesium 2.20 mg/dL (1.7-2.3) 05/31/20 15:23 Urine Creatinine 161.6 mg/dL (0.1-20.0) H 06/01/20 Unknown Urine Sodium 47 mmol/L 06/01/20 Unknown Medications & Allergies - Medications Allergies/Adverse Reactions: Allergies lisinopril Allergy (Verified 05/31/20 13:03) Angioedema Penicillins Allergy (Verified 05/31/20 13:03) Hives Home Medications: Home Medications Medication Instructions Recorded Confirmed Last Taken Type Acetaminophen [Acetaminophen TAB] 650 mg PO Q4H PRN #30 tablet 02/15/17 Unknown Rx AtorvaSTATin [Lipitor] 20 mg PO QHS tablet 02/15/17 Unknown Rx Cipro/Dexameth 0.3/0.1% [Ciprodex 4 drops AU BID bottle 02/15/17 Unknown Rx OTIC] Detemir (Nf) [Levemir (Nf)] 100 units SUB-Q QHS units 02/15/17 Unknown Rx Dextrose 50% in Water [D50W (25GM) 50 ml IV PRN PRN #30 syringe 02/15/17 Unknown Rx Syringe] Enoxaparin 40 mg SUB-Q QDAY syringe 02/15/17 Unknown Rx Lipase/Protease/Amylase [Pancreaze 1 each FEEDTUBE PRN PRN #30 capsule 02/15/[address],500 Unit] Metoprolol [Lopressor TAB] 25 mg PO BID tablet 02/15/17 Unknown Rx Metoprolol [Lopressor TAB] 25 mg PO BID #60 tablet 02/15/17 Unknown Rx Ondansetron [Zofran INJ] 4 mg IV Q8H PRN #30 vial 02/15/17 Unknown Rx Prednisone [predniSONE 5 mg (6-Day 5 mg PO .TAPER #1 tab.ds.pk 02/15/17 Unknown Rx Pack, 21 Tabs)] Simple Syrup 15 ml FEEDTUBE PRN PRN #30 02/15/17 Unknown Rx oral.liqd Simple Syrup 30 ml FEEDTUBE PRN PRN #30 02/15/17 Unknown Rx oral.liqd Sodium Bicarbonate 325 mg FEEDTUBE PRN PRN #30 tablet 02/15/17 Unknown Rx amLODIPine 10 mg PO DAILY tablet 02/15/17 Unknown Rx amLODIPine [Norvasc] 10 mg PO DAILY #30 tab 02/15/17 Unknown Rx bisacodyL [Dulcolax suppos] 10 mg TX QDAY PRN #30 supp.rect 02/15/17 Unknown Rx chlorproMAZINE [Thorazine] 10 mg PO Q6H PRN #30 tablet 02/15/17 Unknown Rx dexAMETHasone [Decadron] 6 mg IV Q6HR vial 02/15/17 Unknown Rx hydrALAZINE [Apresoline INJ] 10 mg IV Q6HR PRN #30 vial 02/15/17 Unknown Rx oxyCODONE /ACETAMINOPHEN [Percocet 1 tab PO Q4H PRN #30 tablet 02/15/17 Unknown Rx 5/325 mg] oxyCODONE /ACETAMINOPHEN [Percocet 1 tab PO Q4HR #30 tab 02/15/17 Unknown Rx 5/325] tiZANidine [Zanaflex 4mg TAB] 4 mg PO Q8H PRN #30 tablet 02/15/17 Unknown Rx Permethrin 5% [Acticin 5% CREAM] 1 applicatio TP ONCE #1 tube 06/11/17 Unknown Rx Azithromycin [Zithromax Z-BENJIE] 250 mg PO DAILY 1 Days tab 11/23/18 Unknown Rx Ondansetron [Zofran Odt] 4 mg PO Q8HR PRN #14 tab.rapdis 11/23/18 Unknown Rx traMADoL [Ultram 50 MG tab] 50 mg PO Q4HR PRN #14 tablet 11/23/18 Unknown Rx Active Medications: Generic Name Dose Route Start Last Admin Trade Name Freq PRN Reason Stop Dose Admin Acetaminophen 650 mg 05/31/20 15:49 Tylenol PO Q6H PRN Pain MILD(1-3)/Fever >100.5/LEBRON Albuterol 2.5 mg 05/31/20 15:49 Proventil IH Q3HRT PRN Shortness Of Breath Atorvastatin Calcium 20 mg 05/31/20 22:00 06/10/20 23:04 Lipitor PO Not Given QHS CHERI Bisacodyl 10 mg 05/31/20 15:57 Dulcolax TX QDAY PRN Constipation unrelieved by MOM Chlorpromazine HCl 10 mg 05/31/20 15:57 Thorazine PO Q6H PRN Hiccups Dextrose 50 ml 05/31/20 15:59 06/07/20 10:48 D50w (25gm) Syringe IV 20 ml Q30MIN PRN Administration Hypoglycemia Protocol Enoxaparin Sodium 100 mg 06/10/20 10:00 06/11/20 10:12 Enoxaparin SUB-Q 100 mg Q24HR CHERI Administration Diltiazem HCl 100 mg in 100 mls @ 5 mls/hr 06/10/20 10:00 06/11/20 10:41 Cardizem/D5w 100mg/100ml IV 06/11/20 13:00 15 mg/hr TITR CHERI 15 mls/hr Administration Protocol 5 MG/HR Amiodarone HCl 900 mg/ 500 mls @ 33.333 mls/hr 06/11/20 11:30 06/11/20 12:26 Dextrose IV 1 mg/min DIRECT CHERI 33.333 mls/hr Administration Protocol 1 MG/MIN Insulin Glargine 10 units 06/11/20 12:19 Lantus SUB-Q QHS CHERI Insulin Human Lispro 0 unit 06/11/20 12:00 Humalog SUB-Q Q6HR [facility] Protocol Methylprednisolone Sodium Succinate 40 mg 06/11/20 14:00 Solu-Medrol IV Q8HR [facility] Metoprolol Tartrate 5 mg 06/09/20 14:52 06/11/20 05:13 Metoprolol IV 5 mg Q6HR PRN Administration Tachyarrhythmias Naloxone HCl 0.1 mg 05/31/20 15:49 Naloxone IV Q2MIN PRN Res Rate </= 8 or 02 SAT < 92% Ondansetron HCl 4 mg 05/31/20 15:57 Zofran IV Q8H PRN N/V unrelieved by Anna Oxycodone/Acetaminophen 1 tab 05/31/20 15:49 06/03/20 00:57 Percocet 5/325 PO 1 tab Q6H PRN Administration Pain, Moderate (4-6) Sodium Chloride 10 ml 05/31/20 22:00 06/11/20 10:12 Sodium Chloride Flush Syringe 10 Ml IV 10 ml BID CHERI Administration Sodium Chloride 10 ml 05/31/20 15:49 Sodium Chloride Flush Syringe 10 Ml IV PRN PRN LINE FLUSH Tizanidine HCl 4 mg 05/31/20 15:57 06/08/20 21:47 Zanaflex PO 4 mg Q8H PRN Administration Muscle Spasm
[2020-06-11] MEDS: methylPREDNISolone Sod Succinate 40 MG/1 ML INJ IV SCH ×2 (13:10→21:59)
--- NOTE | 2020-06-11 14:06 | Progress Note ---
Assessment and Plan Cultures: Coronavirus PCR:positive Blood culture: no growth A/P: 54-year-old male with diabetes, CKD, prior CVA, obesity was admitted to the hospital with complaints of cough, shortness of breath along with fatigue and malaise: #Severe COVID pneumonia: elevated inflammatory markers, now on BiPAP in the ICU. #Acute hypoxic respiratory failure: on high flow. #KEITH on CKD Recs: Completed dexamethasone Not a candidate for Remdesivir due to renal failure trend ferritin, LDH, d-dimer, CRP every 2-3 days for risk stratification and to assess disease progression prophylactic anticoagulation based on d-dimer Repeated procal again Darby Redding MD [facility] ([facility]) M: [phone] O: [phone] F: [phone] Subjective Date of service: 06/11/20 Principal diagnosis: COVID-19 PNA, AF RVR Interval history: Afebrile, white count at 21.Now in ICU. Objective - Exam Narrative Exam: Physical exam deferred due to PPE conservation strategy. Please refer to primary team's note. - Constitutional Vitals: Vital Signs Temp Pulse Resp BP Pulse Ox 97.4 F L 124 H 35 H 141/90 94 06/11/20 08:00 06/11/20 12:35 06/11/20 12:35 06/11/20 12:35 06/11/20 12:35 Temperature -Last 24 Hours Temperature 97.4 F Temperature 98 F Temperature 98.1 F Temperature 98 F Temperature 98.9 F - Labs CBC & Chem 7: 06/11/20 00:14 06/11/20 00:14 Labs: Abnormal lab results 06/08/20 06/10/20 06/10/20 Range/Units 18:18 11:04 17:28 WBC (4.5-11.0) K/mm3 RDW (13.2-15.2) % Seg Neuts % (Manual) (40.0-70.0) % Lymphocytes % (Manual) (13.4-35.0) % Seg Neutrophils # Man (1.8-7.7) K/mm3 Lymphocytes # (Manual) (1.2-5.4) K/mm3 Carbon Dioxide (22-30) mmol/L BUN (9-20) mg/dL Creatinine (0.8-1.3) mg/dL Glucose (75-100) mg/dL POC Glucose 251 H 243 H 265 H (70-105) Alkaline Phosphatase (35-129) units/L Albumin (3.9-5) g/dL 06/11/20 06/11/20 06/11/20 Range/Units 00:14 00:14 05:27 WBC 21.1 H (4.5-11.0) K/mm3 RDW 15.4 H (13.2-15.2) % Seg Neuts % (Manual) 93.0 H (40.0-70.0) % Lymphocytes % (Manual) 5.0 L (13.4-35.0) % Seg Neutrophils # Man 19.6 H (1.8-7.7) K/mm3 Lymphocytes # (Manual) 1.1 L (1.2-5.4) K/mm3 Carbon Dioxide 18 L (22-30) mmol/L BUN 73 H (9-20) mg/dL Creatinine 2.7 H (0.8-1.3) mg/dL Glucose 216 H (75-100) mg/dL POC Glucose 241 H (70-105) Alkaline Phosphatase 134 H (35-129) units/L Albumin 2.7 L (3.9-5) g/dL
[2020-06-11] MEDS ORDERED: INSULIN GLARGINE 100 UNITS/ML SUB-Q SCH (22:00)
[2020-06-12] MEDS: INSULIN LISPRO 100 UNIT/ML VIAL 3 mL SUB-Q SCH ×5 (00:12→17:31)
[2020-06-12 06:04] LABS: Hematocrit 45.1 % (35.5-45.6); Hemoglobin 15.1 gm/dl (11.8-15.2); Mean Corpuscular HGB Conc 34 % (32-34); Mean Corpuscular Volume 88 fl (84-94); Platelet Count 337 K/mm3 (140-440); Red Blood Count 5.14 M/mm3 (3.65-5.03); Red Cell Distribution Width 15.5 % (13.2-15.2)
[2020-06-12] MEDS: methylPREDNISolone Sod Succinate 40 MG/1 ML INJ IV SCH ×3 (06:07→21:06)
[2020-06-12 06:26] LABS: Calcium 9.5 mg/dL (8.4-10.2)
[2020-06-12 06:56] LABS: Basophils % (Manual) 0 % (0.0-1.8); Eosinophils % (Manual) 0 % (0.0-4.3); Total Cells Counted 100
[2020-06-12 06:57] LABS: Platelet Estimate Consistent w Auto; Target Cells Few
--- NOTE | 2020-06-12 09:03 | Progress Note ---
Assessment and Plan Assessment and plan: 54 year old male presenting with shortness of breath, with hypoxia on admission, saturation in the low 80s. Here, his chest x-ray showed bilateral infiltrates and COVID-19 test was positive. He was admitted to the hospital. Patient was started on steroids and ID and pulmonology were consulted. 06/02: Continue current management. Patient on high flow. If can tolerate prone recommend prone position during hours of sleep. 06/03: Continue supportive care. Overall prognosis is guarded. Will discuss proceed with obtaining consent for convalescent plasma. Poor prognosis considering COVID-19 and complicated by renal failure. 06/04: Continue current therapy consent obtained for convalescent plasma. Will discuss with laboratory to obtain the plasma. 06/05: Continue supportive care. Poor prognosis. Patient will like to think about plasma therapy and not ready to sign the consent now. 06/06: Patient remains on high flow with hypoxia persistent despite 100%. Still wants to think about the convalescent plasma therapy. Continue current support with pulmonary assistance. Mild improvement in pulmonary status still not a candidate for Remdesivir. Will obtain nephrology consultation to assist in management 06/07. Patient seen on BiPAP today. Nephrology consulted for impaired renal function. 06/08. He agrees to get convalescent plasma. Order placed in chart. Discussed with blood bank. 06/09: Convalescent plasma ordered, poor prognosis, still monitoring renal function, continues on BIPAP. Check markers for COVID19. continue steroids to complete 10 days. 06/10: Continue supportive care, cardiology input noted, will start on cardizem drip, Continue aniticoagulation, Renal function worse, will monitor and discuss with nephrology about possible initiating HD. 06/11/2020 -Patient is on continuous BiPAP. Pulmonary is following. -On amiodarone and IV metoprolol as needed. Cardiology is following. Patient is on anticoagulation. -Nephrology is following. Potassium level is ok 06/12/2020 -Patient's oxygen saturation was 80% despite 100% BiPAP -Pulmonary intubated the patient, currently sedated and on mechanical ventilator -Patient is still in A. 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 The aggregate critical care time was [35] minutes. This time is in addition to time spent performing reported procedures but includes the following: [x] Data Review and interpretation [x] Patient assessment and monitoring of vital signs [x] Documentation [x] Medication orders and management History Interval history: Patient was seen and evaluated this morning Patient's saturation was 80 despite on 100% BiPAP Pulmonary intubated the patient [06/12/2020] Hospitalist Physical - Physical exam Narrative exam: Patient is intubated and on mechanical ventilator The patient is obese Vital signs as documented. Head exam is unremarkable. No scleral icterus . Neck is without jugular venous distension, thyromegaly, or carotid bruits. Lungs for mechanical ventilation Cardiac exam reveals regular rate and Rhythm. Abdominal exam reveals normal bowel sounds, nontender, no organomegaly. Extremities are nonedematous and both femoral and pedal pulses are normal. MATERIAL MOVERS: Sedated. - Constitutional Vitals: Temp Pulse Resp BP Pulse Ox 98.3 F 139 H 38 H 143/90 86 06/12/20 04:00 06/12/20 08:00 06/12/20 08:00 06/12/20 08:00 06/12/20 08:00 General appearance: Present: no acute distress HEART Score - HEART Score Troponin: Troponin T 0.021 ng/mL (0.00-0.029) 05/31/20 15:23 Results - Labs CBC & Chem 7: 06/12/20 05:34 06/12/20 05:34 Labs: Laboratory Last Values WBC 25.2 K/mm3 (4.5-11.0) H 06/12/20 05:34 RBC 5.14 M/mm3 (3.65-5.03) H 06/12/20 05:34 Hgb 15.1 gm/dl (11.8-15.2) 06/12/20 05:34 Hct 45.1 % (35.5-45.6) 06/12/20 05:34 MCV 88 fl (84-94) 06/12/20 05:34 MCH 30 pg (28-32) 06/12/20 05:34 MCHC 34 % (32-34) 06/12/20 05:34 RDW 15.5 % (13.2-15.2) H 06/12/20 05:34 Plt Count 337 K/mm3 (140-440) 06/12/20 05:34 Lymph % (Auto) 5.3 % (13.4-35.0) L 06/09/20 01:03 [place] % (Auto) 4.1 % (0.0-7.3) 06/09/20 01:03 Eos % (Auto) 0.0 % (0.0-4.3) 06/09/20 01:03 Baso % (Auto) 0.2 % (0.0-1.8) 06/09/20 01:03 Lymph # 1.0 K/mm3 (1.2-5.4) L 06/09/20 01:03 [place] # 0.8 K/mm3 (0.0-0.8) 06/09/20 01:03 Eos # 0.0 K/mm3 (0.0-0.4) 06/09/20 01:03 Baso # 0.0 K/mm3 (0.0-0.1) 06/09/20 01:03 Add Manual Diff Complete 06/12/20 05:34 Total Counted 100 06/12/20 05:34 Seg Neutrophils % Forensic Psychologist 06/12/20 05:34 Seg Neuts % (Manual) 93.0 % (40.0-70.0) H 06/12/20 05:34 Band Neutrophils % 0 % 06/12/20 05:34 Lymphocytes % (Manual) 2.0 % (13.4-35.0) L 06/12/20 05:34 Reactive Lymphs % (Man) 0 % 06/12/20 05:34 Monocytes % (Manual) 5.0 % (0.0-7.3) 06/12/20 05:34 Eosinophils % (Manual) 0 % (0.0-4.3) 06/12/20 05:34 Basophils % (Manual) 0 % (0.0-1.8) 06/12/20 05:34 Metamyelocytes % 0 % 06/12/20 05:34 Myelocytes % 0 % 06/12/20 05:34 Promyelocytes % 0 % 06/12/20 05:34 Blast Cells % 0 % 06/12/20 05:34 Nucleated RBC % Not Reportable 06/12/20 05:34 Seg Neutrophils # 17.7 K/mm3 (1.8-7.7) H 06/09/20 01:03 Seg Neutrophils # Man 23.4 K/mm3 (1.8-7.7) H 06/12/20 05:34 Band Neutrophils # 0.0 K/mm3 06/12/20 05:34 Lymphocytes # (Manual) 0.5 K/mm3 (1.2-5.4) L 06/12/20 05:34 Abs React Lymphs (Man) 0.0 K/mm3 06/12/20 05:34 Monocytes # (Manual) 1.3 K/mm3 (0.0-0.8) H 06/12/20 05:34 Eosinophils # (Manual) 0.0 K/mm3 (0.0-0.4) 06/12/20 05:34 Basophils # (Manual) 0.0 K/mm3 (0.0-0.1) 06/12/20 05:34 Metamyelocytes # 0.0 K/mm3 06/12/20 05:34 Myelocytes # 0.0 K/mm3 06/12/20 05:34 Promyelocytes # 0.0 K/mm3 06/12/20 05:34 Blast Cells # 0.0 K/mm3 06/12/20 05:34 WBC Morphology Not Reportable 06/12/20 05:34 Hypersegmented Neuts Not Reportable 06/12/20 05:34 Hyposegmented Neuts Not Reportable 06/12/20 05:34 Hypogranular Neuts Not Reportable 06/12/20 05:34 Smudge Cells Not Reportable 06/12/20 05:34 Toxic Granulation Not Reportable 06/12/20 05:34 Toxic Vacuolation Not Reportable 06/12/20 05:34 Dohle Bodies Not Reportable 06/12/20 05:34 Pelger-Huet Anomaly Not Reportable 06/12/20 05:34 Edwige Rods Not Reportable 06/12/20 05:34 Platelet Estimate Consistent w auto 06/12/20 05:34 Clumped Platelets Not Reportable 06/12/20 05:34 Plt Clumps, EDTA Not Reportable 06/12/20 05:34 Large Platelets Not Reportable 06/12/20 05:34 Giant Platelets Not Reportable 06/12/20 05:34 Platelet Satelliting Not Reportable 06/12/20 05:34 Plt Morphology Comment Not Reportable 06/12/20 05:34 RBC Morphology Not Reportable 06/12/20 05:34 Dimorphic RBCs Not Reportable 06/12/20 05:34 Polychromasia Not Reportable 06/12/20 05:34 Hypochromasia Not Reportable 06/12/20 05:34 Poikilocytosis Not Reportable 06/12/20 05:34 Anisocytosis Not Reportable 06/12/20 05:34 Microcytosis Not Reportable 06/12/20 05:34 Macrocytosis Not Reportable 06/12/20 05:34 Spherocytes Not Reportable 06/12/20 05:34 Pappenheimer Bodies Not Reportable 06/12/20 05:34 Sickle Cells Not Reportable 06/12/20 05:34 Target Cells Few 06/12/20 05:34 Tear Drop Cells Not Reportable 06/12/20 05:34 Ovalocytes Not Reportable 06/12/20 05:34 Helmet Cells Not Reportable 06/12/20 05:34 [place] Bodies Not Reportable 06/12/20 05:34 [place] Rings Not Reportable 06/12/20 05:34 [place] Cells Not Reportable 06/12/20 05:34 Bite Cells Not Reportable 06/12/20 05:34 Crenated Cell Not Reportable 06/12/20 05:34 Elliptocytes Not Reportable 06/12/20 05:34 Acanthocytes (Spur) Not Reportable 06/12/20 05:34 Rouleaux Not Reportable 06/12/20 05:34 Hemoglobin C Crystals Not Reportable 06/12/20 05:34 Schistocytes Not Reportable 06/12/20 05:34 Malaria parasites Not Reportable 06/12/20 05:34 [place] Bodies Not Reportable 06/12/20 05:34 Hem Pathologist Commnt No 06/12/20 05:34 PT 11.5 Sec. (12.2-14.9) L 05/31/20 15:23 INR 0.83 (0.87-1.13) L 05/31/20 15:23 D-Dimer > 81071 ng/mlDDU (0-234) H 06/09/20 09:21 ABG pH 7.431 (7.320-7.450) 06/10/20 13:18 POC ABG pCO2 31.7 mmHg (32.0-48.0) L 06/10/20 13:18 POC ABG pO2 57.9 mmHg (83-108) L 06/10/20 13:18 POC ABG HCO3 20.6 06/10/20 13:18 POC ABG Base Excess -2.5 06/10/20 13:18 ABG Hemoglobin 15.9 (12.0-17.5) 06/10/20 13:18 FiO2 100.0 06/10/20 13:18 Sodium 148 mmol/L (137-145) H 06/12/20 05:34 Potassium 4.7 mmol/L (3.6-5.0) 06/12/20 05:34 Chloride 108.7 mmol/L (98-107) H 06/12/20 05:34 Carbon Dioxide 19 mmol/L (22-30) L 06/12/20 05:34 Anion Gap 25 mmol/L 06/12/20 05:34 BUN 88 mg/dL (9-20) H 06/12/20 05:34 Creatinine 3.7 mg/dL (0.8-1.3) H 06/12/20 05:34 Estimated GFR 21 ml/min 06/12/20 05:34 BUN/Creatinine Ratio 24 % 06/12/20 05:34 Glucose 314 mg/dL (75-100) H 06/12/20 05:34 POC Glucose 281 (70-105) H 06/12/20 06:17 Hemoglobin A1c 8.5 % (4-6) H 05/31/20 16:49 Calcium 9.5 mg/dL (8.4-10.2) 06/12/20 05:34 Magnesium 2.20 mg/dL (1.7-2.3) 05/31/20 15:23 Ferritin 1045.0 ng/mL (30.0-300.0) H 06/09/20 09:21 Total Bilirubin 0.40 mg/dL (0.1-1.2) 06/11/20 00:14 AST 19 units/L (5-40) 06/11/20 00:14 ALT 23 units/L (7-56) 06/11/20 00:14 Alkaline Phosphatase 134 units/L (35-129) H 06/11/20 00:14 Lactate Dehydrogenase 461 units/L (91-180) H 06/09/20 09:21 Total Creatine Kinase 325 units/L (55-170) H 05/31/20 15:23 Troponin T 0.021 ng/mL (0.00-0.029) 05/31/20 15:23 C-Reactive Protein 9.30 mg/dL (0.00-1.30) H 06/09/20 09:21 NT-Pro-B Natriuret Pep 111.3 pg/mL (0-900) 06/01/20 13:41 Serum Total Protein 6.8 g/dL (6.1-8.1) 06/04/20 04:17 Total Protein 7.6 g/dL (6.3-8.2) 06/11/20 00:14 Albumin 2.7 g/dL (3.9-5) L 06/11/20 00:14 Albumin/Globulin Ratio 0.6 % 06/11/20 00:14 Icmev-6-Adsswmwks 0.5 g/dL (0.2-0.3) H 06/04/20 04:17 Hjxuo-0-Orupzewcw 1.6 g/dL (0.5-0.9) H 06/04/20 04:17 Beta Globulins 0.6 g/dL (0.2-0.5) H 06/04/20 04:17 Gamma Globulins 1.2 g/dL (0.8-1.7) 06/04/20 04:17 Abnorm Protein Band 1 see below 06/04/20 04:17 PEP Interpretation see below H 06/04/20 04:17 Procalcitonin 0.37 ng/mL (<0.15) 06/05/20 05:01 Urine Color Yellow (Yellow) 06/01/20 Unknown Urine Turbidity Clear (Clear) 06/01/20 Unknown Urine pH 5.0 (5.0-7.0) 06/01/20 Unknown Ur Specific [place] 1.018 (1.003-1.030) 06/01/20 Unknown Urine Protein >500 mg/dL (Negative) 06/01/20 Unknown Urine Glucose (UA) >=500 mg/dL (Negative) 06/01/20 Unknown Urine Ketones Tr mg/dL (Negative) 06/01/20 Unknown Urine Blood Mod (Negative) 06/01/20 Unknown Urine Nitrite Neg (Negative) 06/01/20 Unknown Urine Bilirubin Neg (Negative) 06/01/20 Unknown Urine Urobilinogen < 2.0 mg/dL (<2.0) 06/01/20 Unknown Ur Leukocyte Esterase Neg (Negative) 06/01/20 Unknown Urine WBC (Auto) 4.0 /HPF (0.0-6.0) 06/01/20 Unknown Urine RBC (Auto) 9.0 /HPF (0.0-6.0) 06/01/20 Unknown U Epithel Cells (Auto) 1.0 /HPF (0-13.0) 06/01/20 Unknown Urine Mucus Few /HPF 06/01/20 Unknown Urine Eosinophils None seen (None Seen) 06/01/20 Unknown Urine Creatinine 161.6 mg/dL (0.1-20.0) H 06/01/20 Unknown Urine Sodium 47 mmol/L 06/01/20 Unknown FLACO Screen Negative (Negative) 06/03/20 13:17 Proteinase 3 (PR3) Ab <1.0 AI (<1.0) 06/03/20 13:17 Myeloperoxidase Ab <1.0 AI (<1.0) 06/03/20 13:17 Double Strand DNA Ab See scanned result 06/03/20 13:17 Complement C3 223 mg/dL (82-185) H 06/03/20 10:39 Complement C4 64 mg/dL (15-53) H 06/03/20 10:39 Coronavirus (PCR) Positive (Negative) A 06/01/20 Unknown Hepatitis A IgM Ab Non-reactive (NonReactive) 06/03/20 10:39 Hep Bs Antigen Non-reactive (Negative) 06/03/20 10:39 Hep B Core IgM Ab Non-reactive (NonReactive) 06/03/20 10:39 Hepatitis C Antibody Non-reactive (NonReactive) 06/03/20 10:39 Blood Type A POSITIVE 06/08/20 09:41 Antibody Screen Negative 06/08/20 09:41 Hess/IV: Voiding Method Condom Catheter IV Catheter Type [Right Upper Peripheral IV arm] IV Catheter Type [Right INT / Saline Lock Antecubital] Active Medications - Current Medications Current Medications: Generic Name Dose Route Start Last Admin Trade Name Freq PRN Reason Stop Dose Admin Acetaminophen 650 mg 05/31/20 15:49 Tylenol PO Q6H PRN Pain MILD(1-3)/Fever >100.5/LEBRON Albuterol 2.5 mg 05/31/20 15:49 Proventil IH Q3HRT PRN Shortness Of Breath Atorvastatin Calcium 20 mg 05/31/20 22:00 06/11/20 22:11 Lipitor PO Not Given QHS CHERI Bisacodyl 10 mg 05/31/20 15:57 Dulcolax MO QDAY PRN Constipation unrelieved by MOM Chlorpromazine HCl 10 mg 05/31/20 15:57 Thorazine PO Q6H PRN Hiccups Dextrose 50 ml 05/31/20 15:59 06/07/20 10:48 D50w (25gm) Syringe IV 20 ml Q30MIN PRN Administration Hypoglycemia Protocol Enoxaparin Sodium 100 mg 06/10/20 10:00 06/11/20 10:12 Enoxaparin SUB-Q 100 mg Q24HR CHERI Administration Amiodarone HCl 900 mg/ 500 mls @ 33.333 mls/hr 06/11/20 11:30 06/11/20 18:30 Dextrose IV 0.5 mg/min DIRECT CHERI 16.667 mls/hr Infusion Protocol 1 MG/MIN Insulin Glargine 10 units 06/11/20 22:00 06/11/20 22:11 Lantus SUB-Q 10 units QHS CHERI Administration Insulin Human Lispro 0 unit 06/11/20 12:00 06/12/20 06:07 Humalog SUB-Q 6 unit Q6HR CHERI Administration Protocol Methylprednisolone Sodium Succinate 40 mg 06/11/20 14:00 06/12/20 06:07 Solu-Medrol IV 40 mg Q8HR CHERI Administration Metoprolol Tartrate 5 mg 06/09/20 14:52 06/11/20 05:13 Metoprolol IV 5 mg Q6HR PRN Administration Tachyarrhythmias Naloxone HCl 0.1 mg 05/31/20 15:49 Naloxone IV Q2MIN PRN Res Rate </= 8 or 02 SAT < 92% Ondansetron HCl 4 mg 05/31/20 15:57 Zofran IV Q8H PRN N/V unrelieved by Reglan Oxycodone/Acetaminophen 1 tab 05/31/20 15:49 06/03/20 00:57 Percocet 5/325 PO 1 tab Q6H PRN Administration Pain, Moderate (4-6) Sodium Chloride 10 ml 05/31/20 22:00 06/11/20 22:11 Sodium Chloride Flush Syringe 10 Ml IV 10 ml BID CHERI Administration Sodium Chloride 10 ml 05/31/20 15:49 Sodium Chloride Flush Syringe 10 Ml IV PRN PRN LINE FLUSH Tizanidine HCl 4 mg 05/31/20 15:57 06/08/20 21:47 Zanaflex PO 4 mg Q8H PRN Administration Muscle Spasm Nutrition/Malnutrition Assess - Dietary Evaluation Nutrition/Malnutrition Findings: Nutrition Notes Start: 06/01/20 10:42 Freq: Status: Active Protocol: Document 06/11/20 13:25 JEFFERSON (Rec: 06/11/20 13:35 JEFFERSON [id number]) Co-Sign 06/11/20 13:25 LP Nutrition Notes Need for Assessment generated from: MD Order Initial or Follow up Reassessment Current Diagnosis CKD(stage I-IV),Diabetes, Hypertension,Stroke Other Pertinent Diagnosis COVID-19 (+) Current Diet Renal Labs/Tests Reviewed Pertinent Medications Lantus 10 units Humalog 6 units Solu-Medrol Height 5 ft 9 in Weight 113 kg [place] Body Weight (kg) 72.72 BMI 36.8 Weight Status Obese Subjective/Other Information Per RN, pt ate ~75%. Pt sleeping at visit. Pt remains on BiPAP. Burn Absent Trauma Absent GI Symptoms None Current % PO Good (75-100%) Minimum of two criteria No physical signs of malnutrition #1 Nutrition Diagnosis Altered nutrition-related laboratory values As Evidenced by Signs and Symptoms HgbA1c 8.5 Diagnosis Progress(for reassessment Continues documentation) Is patient on ventilator? No Is Patient Ambulatory and/or Out of Bed No REE-([place]-confined to bed) 2344.476 Kcal/Kg value to use for calculation 16 Approximate Energy Requirements Using 1808 kcal/Kg Additional Notes Protein Needs 145g (up to 2g/ kg IBW) Fluid: 1ml/kcal Nutrition Intervention Change Diet Order: Continue Goal #1 Improve BG control Goal #2 PO intake to meet at least 75% of energy and protein needs. Follow-Up By: 06/18/20 Additional Comments F/U for stable intakes and diet education needs
[2020-06-12] MEDS: ENOXAPARIN 100 MG/1 ML INJ SUB-Q SCH (09:25)
[2020-06-12] MEDS ORDERED: MIDAZOLAM 2 MG/2 ML INJ ONE (09:36)
[2020-06-12] MEDS ORDERED: fentaNYL 100 MCG/2 ML INJ ONE (09:37)
[2020-06-12] MEDS ORDERED: fentaNYL 100 MCG/2 ML INJ IV NR (10:00)
[2020-06-12] MEDS ORDERED: SODIUM CHLORIDE 0.9% 1000 ML 1,000 ML ONE (10:02)
--- NOTE | 2020-06-12 10:37 | Event Note ---
Date: 06/12/20 Called by staff of Mr. Villar condition. Although awake, satting in the low 80's on 100% bipap. Spoke with him in front of [facility] nurse. Patient wishes to be intubated. Ok with central line placement as well. After proper positioning of patient, adequate suction, access and all necessary items available for intubation, using glide scope with number 4 blade, patient was intubated with number 8 tube with a grade 1 view on 1st attempt with no difficulty. Tube visualized directly going through VC's witn no issues. Tube secured and patient bagged easily. Placed on APRV with PHigh of 28 and Thigh 6.0, Tlow of 0.5 and P low of 5. BP stable, will start on Diprovan.
--- NOTE | 2020-06-12 10:42 | Progress Note ---
Assessment and Plan 54 y/o male with acute respiratory failure, secondary to COVID 19 pneumonia and possibly acute renal failure, now intubated with worsening renal failure 1. Follow up ABG 2. Continue IV steroids. 3. Pending ABG will decide on proning 4. Follow up renal recs, NO HD per them, but worsening renal failure. 5. Now with afib with RVR, reviewed cardiology note. Not able to get PO meds. Spoke with cards and waiting to hear back from them. May need to consider amio load and continuous drip. 6. Very very poor prognosis, patient aware of this. will call family cct 31 minutes Subjective Date of service: 06/12/20 Principal diagnosis: COVID-19 PNA, AF RVR Interval history: Intubated this am secondary to worsening respiratory failure. Objective Vital Signs - 12hr 06/11/20 06/11/20 06/12/20 23:00 23:30 00:00 Temperature 98.9 F Pulse Rate 119 H 121 H 130 H Pulse Rate [ 128 H From Monitor] Respiratory 41 H 37 H 41 H Rate Blood Pressure 141/87 153/75 137/88 O2 Sat by Pulse 94 94 95 Oximetry 06/12/20 06/12/20 06/12/20 00:30 01:00 01:30 Temperature Pulse Rate 128 H 119 H 133 H Pulse Rate [ From Monitor] Respiratory 37 H 42 H 35 H Rate Blood Pressure 134/83 128/93 140/86 O2 Sat by Pulse 94 95 97 Oximetry 06/12/20 06/12/20 06/12/20 02:00 02:30 03:00 Temperature Pulse Rate 128 H 124 H 123 H Pulse Rate [ From Monitor] Respiratory 48 H 29 H 26 H Rate Blood Pressure 140/86 144/90 132/88 O2 Sat by Pulse 100 87 96 Oximetry 06/12/20 06/12/20 06/12/20 03:30 04:00 04:30 Temperature 98.3 F Pulse Rate 121 H 136 H 115 H Pulse Rate [ 116 H From Monitor] Respiratory 17 45 H 29 H Rate Blood Pressure 142/90 133/78 146/79 O2 Sat by Pulse 93 97 94 Oximetry 06/12/20 06/12/20 06/12/20 05:00 05:30 05:57 Temperature Pulse Rate 126 H 139 H 115 H Pulse Rate [ From Monitor] Respiratory 46 H 40 H 27 H Rate Blood Pressure 137/82 142/89 113/86 O2 Sat by Pulse 91 94 91 Oximetry 06/12/20 06/12/20 06/12/20 06:00 06:30 07:00 Temperature Pulse Rate 128 H 134 H 137 H Pulse Rate [ From Monitor] Respiratory 39 H 47 H 48 H Rate Blood Pressure 104/80 135/97 124/84 O2 Sat by Pulse 90 91 87 Oximetry 06/12/20 06/12/20 06/12/20 07:30 07:58 08:00 Temperature 97.4 F L Pulse Rate 135 H 140 H 139 H Pulse Rate [ 139 H From Monitor] Respiratory 39 H 42 H 38 H Rate Blood Pressure 134/87 143/90 143/90 O2 Sat by Pulse 90 85 86 Oximetry 06/12/20 10:21 Temperature Pulse Rate 121 H Pulse Rate [ From Monitor] Respiratory 44 H Rate Blood Pressure 107/72 O2 Sat by Pulse 96 Oximetry Constitutional: no acute distress, lethargic, other (Morbidly obese) Eyes: non-icteric ENT: oropharynx moist, other (Crowded oropharynx) Neck: supple Ascultation: Bilateral: diminished breath sounds Cardiovascular: regular rate and rhythm Gastrointestinal: normoactive bowel sounds, non-distended, other (Obese) Integumentary: normal Extremities: no cyanosis Neurologic: non-focal exam CBC and BMP: 06/12/20 05:34 06/12/20 05:34 ABG, PT/INR, D-dimer: ABG ABG pH 7.420 (7.320-7.450) 06/12/20 09:32 POC ABG pCO2 30.5 mmHg (32.0-48.0) L 06/12/20 09:32 POC ABG pO2 49.5 mmHg (83-108) L 06/12/20 09:32 POC ABG HCO3 19.3 06/12/20 09:32 PT/INR, D-dimer PT 11.5 Sec. (12.2-14.9) L 05/31/20 15:23 INR 0.83 (0.87-1.13) L 05/31/20 15:23 D-Dimer > 39701 ng/mlDDU (0-234) H 06/09/20 09:21 Abnormal lab findings: Abnormal Labs 05/31/20 05/31/20 05/31/20 15:23 15:23 15:23 WBC RBC MCHC RDW Lymph % (Auto) Lymph # [place] # Seg Neutrophils % Seg Neuts % (Manual) Lymphocytes % (Manual) Seg Neutrophils # Seg Neutrophils # Man Lymphocytes # (Manual) Monocytes # (Manual) PT INR D-Dimer POC ABG pCO2 POC ABG pO2 ABG Hemoglobin Sodium Potassium Chloride Carbon Dioxide BUN Creatinine Glucose 280 H POC Glucose Hemoglobin A1c Calcium Ferritin 583.4 H Alkaline Phosphatase Lactate Dehydrogenase 392 H Total Creatine Kinase 325 H C-Reactive Protein 14.30 H Albumin [place]ao-7-Gxrzldsji Krtpr-7-Ndvrnpckr Beta Globulins PEP Interpretation Urine Creatinine Complement C3 Complement C4 Coronavirus (PCR) 05/31/20 05/31/20 05/31/20 15:23 15:23 15:23 WBC RBC MCHC RDW 15.7 H Lymph % (Auto) 12.9 L Lymph # 1.0 L [place] # Seg Neutrophils % 81.7 H Seg Neuts % (Manual) Lymphocytes % (Manual) Seg Neutrophils # Seg Neutrophils # Man Lymphocytes # (Manual) Monocytes # (Manual) PT 11.5 L INR 0.83 L D-Dimer POC ABG pCO2 POC ABG pO2 ABG Hemoglobin Sodium 134 L Potassium Chloride 97.2 L Carbon Dioxide BUN 28 H Creatinine 3.0 H Glucose 279 H POC Glucose Hemoglobin A1c Calcium Ferritin Alkaline Phosphatase Lactate Dehydrogenase Total Creatine Kinase C-Reactive Protein Albumin 3.3 L Ypoql-4-Ttmhrgnbh Becru-1-Pgvxiqxey Beta Globulins PEP Interpretation Urine Creatinine Complement C3 Complement C4 Coronavirus (PCR) 05/31/20 05/31/20 05/31/20 16:47 16:49 16:49 WBC RBC MCHC RDW Lymph % (Auto) Lymph # [place] # Seg Neutrophils % Seg Neuts % (Manual) Lymphocytes % (Manual) Seg Neutrophils # Seg Neutrophils # Man Lymphocytes # (Manual) Monocytes # (Manual) PT INR D-Dimer 738.85 H POC ABG pCO2 POC ABG pO2 ABG Hemoglobin Sodium Potassium Chloride Carbon Dioxide BUN Creatinine Glucose 258 H POC Glucose 239 H Hemoglobin A1c Calcium Ferritin Alkaline Phosphatase Lactate Dehydrogenase 409 H Total Creatine Kinase C-Reactive Protein 14.00 H Albumin Dskhp-5-Bqycoptqk Bnypw-1-Okjvsxcku Beta Globulins PEP Interpretation Urine Creatinine Complement C3 Complement C4 Coronavirus (PCR) 08/28/20 08/28/20 08/29/20 16:49 16:49 10:15 WBC RBC MCHC RDW Lymph % (Auto) Lymph # [place] # Seg Neutrophils % Seg Neuts % (Manual) Lymphocytes % (Manual) Seg Neutrophils # Seg Neutrophils # Man Lymphocytes # (Manual) Monocytes # (Manual) PT INR D-Dimer POC ABG pCO2 POC ABG pO2 ABG Hemoglobin Sodium Potassium Chloride Carbon Dioxide BUN Creatinine Glucose POC Glucose 277 H Hemoglobin A1c 8.5 H Calcium Ferritin 599.0 H Alkaline Phosphatase Lactate Dehydrogenase Total Creatine Kinase C-Reactive Protein Albumin Sohey-6-Txepouajc Lebkl-2-Vfmtuinkg Beta Globulins PEP Interpretation Urine Creatinine Complement C3 Complement C4 Coronavirus (PCR) 06/01/20 06/01/20 06/01/20 13:41 13:41 16:10 WBC RBC MCHC RDW 15.3 H Lymph % (Auto) 8.4 L Lymph # 0.9 L [place] # Seg Neutrophils % 86.9 H Seg Neuts % (Manual) Lymphocytes % (Manual) Seg Neutrophils # 9.3 H Seg Neutrophils # Man Lymphocytes # (Manual) Monocytes # (Manual) PT INR D-Dimer POC ABG pCO2 POC ABG pO2 ABG Hemoglobin Sodium 136 L Potassium 5.5 H Chloride Carbon Dioxide 20 L BUN 42 H Creatinine 3.5 H Glucose 278 H POC Glucose 372 H Hemoglobin A1c Calcium Ferritin Alkaline Phosphatase Lactate Dehydrogenase Total Creatine Kinase C-Reactive Protein Albumin Afpib-7-Cfylaxzba Nogca-4-Lxjcfoxes Beta Globulins PEP Interpretation Urine Creatinine Complement C3 Complement C4 Coronavirus (PCR) 06/01/20 06/01/20 06/01/20 23:12 Unknown Unknown WBC RBC MCHC RDW Lymph % (Auto) Lymph # [place] # Seg Neutrophils % Seg Neuts % (Manual) Lymphocytes % (Manual) Seg Neutrophils # Seg Neutrophils # Man Lymphocytes # (Manual) Monocytes # (Manual) PT INR D-Dimer POC ABG pCO2 POC ABG pO2 ABG Hemoglobin Sodium Potassium Chloride Carbon Dioxide BUN Creatinine Glucose POC Glucose 398 H Hemoglobin A1c Calcium Ferritin Alkaline Phosphatase Lactate Dehydrogenase Total Creatine Kinase C-Reactive Protein Albumin Satxn-0-Dozermbvc [place]-2-Jxwisixtt Beta Globulins PEP Interpretation Urine Creatinine 161.6 H Complement C3 Complement C4 Coronavirus (PCR) Positive A 06/02/20 06/02/20 06/02/20 04:55 04:55 05:33 WBC 14.7 H RBC MCHC RDW 15.4 H Lymph % (Auto) 7.1 L Lymph # 1.1 L [place] # Seg Neutrophils % 89.3 H Seg Neuts % (Manual) Lymphocytes % (Manual) Seg Neutrophils # 13.2 H Seg Neutrophils # Man Lymphocytes # (Manual) Monocytes # (Manual) PT INR D-Dimer POC ABG pCO2 POC ABG pO2 ABG Hemoglobin Sodium 136 L Potassium Chloride 97.2 L Carbon Dioxide 21 L BUN 47 H Creatinine 3.5 H Glucose 244 H POC Glucose 262 H Hemoglobin A1c Calcium Ferritin Alkaline Phosphatase Lactate Dehydrogenase Total Creatine Kinase C-Reactive Protein Albumin 3.2 L Omqoe-5-Htkrflfph Okdul-1-Znflofeni Beta Globulins PEP Interpretation Urine Creatinine Complement C3 Complement C4 Coronavirus (PCR) 06/02/20 06/02/20 06/02/20 10:55 16:49 22:15 WBC RBC MCHC RDW Lymph % (Auto) Lymph # [place] # Seg Neutrophils % Seg Neuts % (Manual) Lymphocytes % (Manual) Seg Neutrophils # Seg Neutrophils # Man Lymphocytes # (Manual) Monocytes # (Manual) PT INR D-Dimer POC ABG pCO2 POC ABG pO2 ABG Hemoglobin Sodium Potassium Chloride Carbon Dioxide BUN Creatinine Glucose POC Glucose 160 H 214 H 292 H Hemoglobin A1c Calcium Ferritin Alkaline Phosphatase Lactate Dehydrogenase Total Creatine Kinase C-Reactive Protein Albumin Peptw-0-Jlvdgkrqd Oyfgl-9-Kabitavzy Beta Globulins PEP Interpretation Urine Creatinine Complement C3 Complement C4 Coronavirus (PCR) 06/02/20 06/03/20 06/03/20 23:47 05:18 05:18 WBC 18.4 H RBC MCHC RDW 15.3 H Lymph % (Auto) Lymph # [place] # Seg Neutrophils % Seg Neuts % (Manual) 91.0 H Lymphocytes % (Manual) 8.0 L Seg Neutrophils # Seg Neutrophils # Man 16.7 H Lymphocytes # (Manual) Monocytes # (Manual) PT INR D-Dimer POC ABG pCO2 POC ABG pO2 ABG Hemoglobin Sodium Potassium Chloride Carbon Dioxide 20 L BUN 50 H Creatinine 3.1 H Glucose 248 H POC Glucose 292 H Hemoglobin A1c Calcium Ferritin Alkaline Phosphatase Lactate Dehydrogenase Total Creatine Kinase C-Reactive Protein Albumin 2.8 L Uamyk-3-Lzfdedbqi Evesz-9-Jrdxhehnc Beta Globulins PEP Interpretation Urine Creatinine Complement C3 Complement C4 Coronavirus (PCR) 06/03/20 06/03/20 06/03/20 05:20 10:39 10:39 WBC RBC MCHC RDW Lymph % (Auto) Lymph # [place] # Seg Neutrophils % Seg Neuts % (Manual) Lymphocytes % (Manual) Seg Neutrophils # Seg Neutrophils # Man Lymphocytes # (Manual) Monocytes # (Manual) PT INR D-Dimer POC ABG pCO2 POC ABG pO2 ABG Hemoglobin Sodium Potassium Chloride Carbon Dioxide BUN Creatinine Glucose POC Glucose 208 H Hemoglobin A1c Calcium Ferritin Alkaline Phosphatase Lactate Dehydrogenase Total Creatine Kinase C-Reactive Protein Albumin Slhah-4-Tpwaatjlq Vyxdv-7-Seuglzsoz Beta Globulins PEP Interpretation Urine Creatinine Complement C3 223 H Complement C4 64 H Coronavirus (PCR) 06/03/20 06/03/20 06/03/20 11:40 13:06 16:58 WBC RBC MCHC RDW Lymph % (Auto) Lymph # [place] # Seg Neutrophils % Seg Neuts % (Manual) Lymphocytes % (Manual) Seg Neutrophils # Seg Neutrophils # Man Lymphocytes # (Manual) Monocytes # (Manual) PT INR D-Dimer POC ABG pCO2 POC ABG pO2 ABG Hemoglobin Sodium Potassium Chloride Carbon Dioxide BUN Creatinine Glucose POC Glucose 180 H 167 H 152 H Hemoglobin A1c Calcium Ferritin Alkaline Phosphatase Lactate Dehydrogenase Total Creatine Kinase C-Reactive Protein Albumin Drjxv-5-Kswajffai Kpxji-0-Wgtnhnwnh Beta Globulins PEP Interpretation Urine Creatinine Complement C3 Complement C4 Coronavirus (PCR) 06/04/20 06/04/20 06/04/20 00:07 04:17 04:17 WBC 20.8 H RBC 5.20 H MCHC RDW 15.7 H Lymph % (Auto) Lymph # [place] # Seg Neutrophils % Seg Neuts % (Manual) 91.0 H Lymphocytes % (Manual) 4.0 L Seg Neutrophils # Seg Neutrophils # Man 18.9 H Lymphocytes # (Manual) 0.8 L Monocytes # (Manual) 1.0 H PT INR D-Dimer POC ABG pCO2 POC ABG pO2 ABG Hemoglobin Sodium 135 L Potassium 5.1 H Chloride 97.8 L Carbon Dioxide 20 L BUN 56 H Creatinine 3.1 H Glucose 178 H POC Glucose 206 H Hemoglobin A1c Calcium Ferritin Alkaline Phosphatase Lactate Dehydrogenase Total Creatine Kinase C-Reactive Protein Albumin 3.0 L Fpwwq-9-Bszcdzscv Xacbk-9-Zcczgnawb Beta Globulins PEP Interpretation Urine Creatinine Complement C3 Complement C4 Coronavirus (PCR) 06/04/20 06/04/20 06/04/20 04:17 05:35 11:08 WBC RBC MCHC RDW Lymph % (Auto) Lymph # [place] # Seg Neutrophils % Seg Neuts % (Manual) Lymphocytes % (Manual) Seg Neutrophils # Seg Neutrophils # Man Lymphocytes # (Manual) Monocytes # (Manual) PT INR D-Dimer POC ABG pCO2 POC ABG pO2 ABG Hemoglobin Sodium Potassium Chloride Carbon Dioxide BUN Creatinine Glucose POC Glucose 166 H 159 H Hemoglobin A1c Calcium Ferritin Alkaline Phosphatase Lactate Dehydrogenase Total Creatine Kinase C-Reactive Protein Albumin 2.6 L Nkasa-6-Xlcivbuvf 0.5 H Thgqq-9-Yqxilzcpe 1.6 H Beta Globulins 0.6 H PEP Interpretation see below H Urine Creatinine Complement C3 Complement C4 Coronavirus (PCR) 06/04/20 06/05/20 06/05/20 18:06 00:22 04:56 WBC 20.2 H RBC MCHC RDW 15.6 H Lymph % (Auto) 4.7 L Lymph # 0.9 L [place] # 1.0 H Seg Neutrophils % Seg Neuts % (Manual) Lymphocytes % (Manual) Seg Neutrophils # 18.2 H Seg Neutrophils # Man Lymphocytes # (Manual) Monocytes # (Manual) PT INR D-Dimer POC ABG pCO2 POC ABG pO2 ABG Hemoglobin Sodium Potassium Chloride Carbon Dioxide BUN Creatinine Glucose POC Glucose 190 H 234 H Hemoglobin A1c Calcium Ferritin Alkaline Phosphatase Lactate Dehydrogenase Total Creatine Kinase C-Reactive Protein Albumin Xrqak-3-Jofzddfin Lpkqa-4-Xyimfiyeb Beta Globulins PEP Interpretation Urine Creatinine Complement C3 Complement C4 Coronavirus (PCR) 06/05/20 06/05/20 06/05/20 04:56 05:43 09:27 WBC RBC MCHC RDW Lymph % (Auto) Lymph # [place] # Seg Neutrophils % Seg Neuts % (Manual) Lymphocytes % (Manual) Seg Neutrophils # Seg Neutrophils # Man Lymphocytes # (Manual) Monocytes # (Manual) PT INR D-Dimer POC ABG pCO2 POC ABG pO2 ABG Hemoglobin Sodium Potassium Chloride Carbon Dioxide 21 L BUN 63 H Creatinine 3.0 H Glucose 170 H POC Glucose 156 H 106 H Hemoglobin A1c Calcium Ferritin Alkaline Phosphatase Lactate Dehydrogenase Total Creatine Kinase C-Reactive Protein Albumin 3.0 L Dtqmx-2-Susfhheat Nudgj-6-Ssulxcqwb Beta Globulins PEP Interpretation Urine Creatinine Complement C3 Complement C4 Coronavirus (PCR) 06/05/20 06/05/20 06/06/20 15:50 23:36 10:31 WBC 18.3 H RBC MCHC RDW 15.6 H Lymph % (Auto) Lymph # [place] # Seg Neutrophils % Seg Neuts % (Manual) 90.0 H Lymphocytes % (Manual) 6.0 L Seg Neutrophils # Seg Neutrophils # Man 16.5 H Lymphocytes # (Manual) 1.1 L Monocytes # (Manual) PT INR D-Dimer POC ABG pCO2 POC ABG pO2 ABG Hemoglobin Sodium Potassium Chloride Carbon Dioxide BUN Creatinine Glucose POC Glucose 197 H 193 H Hemoglobin A1c Calcium Ferritin Alkaline Phosphatase Lactate Dehydrogenase Total Creatine Kinase C-Reactive Protein Albumin Ehixp-6-Kfzesbczi Vxefr-2-Catfghdtf Beta Globulins PEP Interpretation Urine Creatinine Complement C3 Complement C4 Coronavirus (PCR) 06/06/20 06/06/20 06/06/20 10:31 12:34 17:34 WBC RBC MCHC RDW Lymph % (Auto) Lymph # [place] # Seg Neutrophils % Seg Neuts % (Manual) Lymphocytes % (Manual) Seg Neutrophils # Seg Neutrophils # Man Lymphocytes # (Manual) Monocytes # (Manual) PT INR D-Dimer POC ABG pCO2 POC ABG pO2 ABG Hemoglobin Sodium Potassium Chloride Carbon Dioxide BUN 65 H Creatinine 2.7 H Glucose 61 L POC Glucose 50 L 117 H Hemoglobin A1c Calcium Ferritin Alkaline Phosphatase Lactate Dehydrogenase Total Creatine Kinase C-Reactive Protein Albumin Xodwg-8-Lkxkyhryq Twyax-2-Lvtsyhhuz Beta Globulins PEP Interpretation Urine Creatinine Complement C3 Complement C4 Coronavirus (PCR) 06/07/20 06/07/20 06/07/20 04:40 04:40 06:07 WBC 16.3 H RBC MCHC RDW 15.6 H Lymph % (Auto) 4.9 L Lymph # 0.8 L [place] # 0.9 H Seg Neutrophils % 89.3 H Seg Neuts % (Manual) Lymphocytes % (Manual) Seg Neutrophils # 14.6 H Seg Neutrophils # Man Lymphocytes # (Manual) Monocytes # (Manual) PT INR D-Dimer POC ABG pCO2 POC ABG pO2 ABG Hemoglobin Sodium Potassium 5.1 H D Chloride Carbon Dioxide BUN 67 H Creatinine 2.6 H Glucose 52 L POC Glucose 45 L Hemoglobin A1c Calcium Ferritin Alkaline Phosphatase Lactate Dehydrogenase Total Creatine Kinase C-Reactive Protein Albumin Frwho-7-Qrpymwouj Eefzm-2-Ujeextvhs Beta Globulins PEP Interpretation Urine Creatinine Complement C3 Complement C4 Coronavirus (PCR) 06/07/20 06/07/20 06/07/20 10:34 10:49 12:26 WBC RBC MCHC RDW Lymph % (Auto) Lymph # [place] # Seg Neutrophils % Seg Neuts % (Manual) Lymphocytes % (Manual) Seg Neutrophils # Seg Neutrophils # Man Lymphocytes # (Manual) Monocytes # (Manual) PT INR D-Dimer POC ABG pCO2 POC ABG pO2 ABG Hemoglobin Sodium Potassium Chloride Carbon Dioxide BUN Creatinine Glucose POC Glucose 57 L 54 L 192 H Hemoglobin A1c Calcium Ferritin Alkaline Phosphatase Lactate Dehydrogenase Total Creatine Kinase C-Reactive Protein Albumin Jrjzo-9-Iovgbzdok Vpilv-7-Ztaxsoxrw Beta Globulins PEP Interpretation Urine Creatinine Complement C3 Complement C4 Coronavirus (PCR) 06/07/20 06/08/20 06/08/20 17:42 00:12 04:52 WBC 18.8 H RBC MCHC RDW 15.6 H Lymph % (Auto) 4.6 L Lymph # 0.9 L [place] # 1.0 H Seg Neutrophils % 89.7 H Seg Neuts % (Manual) Lymphocytes % (Manual) Seg Neutrophils # 16.9 H Seg Neutrophils # Man Lymphocytes # (Manual) Monocytes # (Manual) PT INR D-Dimer POC ABG pCO2 POC ABG pO2 ABG Hemoglobin Sodium Potassium Chloride Carbon Dioxide BUN Creatinine Glucose POC Glucose 241 H 285 H Hemoglobin A1c Calcium Ferritin Alkaline Phosphatase Lactate Dehydrogenase Total Creatine Kinase C-Reactive Protein Albumin Dntua-8-Qduwuvzas Vzwty-7-Akgipnwja Beta Globulins PEP Interpretation Urine Creatinine Complement C3 Complement C4 Coronavirus (PCR) 06/08/20 06/08/20 06/08/20 04:52 05:41 12:44 WBC RBC MCHC RDW Lymph % (Auto) Lymph # [place] # Seg Neutrophils % Seg Neuts % (Manual) Lymphocytes % (Manual) Seg Neutrophils # Seg Neutrophils # Man Lymphocytes # (Manual) Monocytes # (Manual) PT INR D-Dimer POC ABG pCO2 POC ABG pO2 ABG Hemoglobin Sodium Potassium Chloride Carbon Dioxide BUN 66 H Creatinine 2.6 H Glucose 175 H POC Glucose 177 H 172 H Hemoglobin A1c Calcium Ferritin Alkaline Phosphatase Lactate Dehydrogenase Total Creatine Kinase C-Reactive Protein Albumin Vzvrp-8-Mnlftkfdn Csncv-7-Fpzpbpnnj Beta Globulins PEP Interpretation Urine Creatinine Complement C3 Complement C4 Coronavirus (PCR) 06/08/20 06/08/20 06/09/20 18:18 23:39 01:03 WBC 19.6 H RBC MCHC 36 H RDW 15.5 H Lymph % (Auto) 5.3 L Lymph # 1.0 L [place] # Seg Neutrophils % Seg Neuts % (Manual) Lymphocytes % (Manual) Seg Neutrophils # 17.7 H Seg Neutrophils # Man Lymphocytes # (Manual) Monocytes # (Manual) PT INR D-Dimer POC ABG pCO2 POC ABG pO2 ABG Hemoglobin Sodium Potassium Chloride Carbon Dioxide BUN Creatinine Glucose POC Glucose 251 H 196 H Hemoglobin A1c Calcium Ferritin Alkaline Phosphatase Lactate Dehydrogenase Total Creatine Kinase C-Reactive Protein Albumin Yrnca-1-Tiwysuycv Blndy-6-Drgalowms Beta Globulins PEP Interpretation Urine Creatinine Complement C3 Complement C4 Coronavirus (PCR) 06/09/20 06/09/20 06/09/20 01:03 05:42 06:02 WBC RBC MCHC RDW Lymph % (Auto) Lymph # [place] # Seg Neutrophils % Seg Neuts % (Manual) Lymphocytes % (Manual) Seg Neutrophils # Seg Neutrophils # Man Lymphocytes # (Manual) Monocytes # (Manual) PT INR D-Dimer POC ABG pCO2 POC ABG pO2 ABG Hemoglobin Sodium 136 L Potassium Chloride Carbon Dioxide 20 L 20 L BUN 68 H 66 H Creatinine 2.7 H 2.7 H Glucose 180 H 141 H POC Glucose 136 H Hemoglobin A1c Calcium 8.3 L Ferritin Alkaline Phosphatase Lactate Dehydrogenase Total Creatine Kinase C-Reactive Protein Albumin 2.6 L Cwviu-8-Zvwwdomwq Munez-6-Ttqzfluaj Beta Globulins PEP Interpretation Urine Creatinine Complement C3 Complement C4 Coronavirus (PCR) 06/09/20 06/09/20 06/09/20 09:21 09:21 09:21 WBC RBC MCHC RDW Lymph % (Auto) Lymph # [place] # Seg Neutrophils % Seg Neuts % (Manual) Lymphocytes % (Manual) Seg Neutrophils # Seg Neutrophils # Man Lymphocytes # (Manual) Monocytes # (Manual) PT INR D-Dimer > 26812 H POC ABG pCO2 POC ABG pO2 ABG Hemoglobin Sodium Potassium Chloride Carbon Dioxide BUN Creatinine Glucose 195 H POC Glucose Hemoglobin A1c Calcium Ferritin 1045.0 H Alkaline Phosphatase Lactate Dehydrogenase 461 H Total Creatine Kinase C-Reactive Protein 9.30 H Albumin Nfrqk-7-Ljrxbwdwv Ccpaw-8-Voyeiggdf Beta Globulins PEP Interpretation Urine Creatinine Complement C3 Complement C4 Coronavirus (PCR) 06/09/20 06/09/20 06/09/20 10:26 17:30 22:22 WBC RBC MCHC RDW Lymph % (Auto) Lymph # [place] # Seg Neutrophils % Seg Neuts % (Manual) Lymphocytes % (Manual) Seg Neutrophils # Seg Neutrophils # Man Lymphocytes # (Manual) Monocytes # (Manual) PT INR D-Dimer POC ABG pCO2 POC ABG pO2 ABG Hemoglobin Sodium Potassium Chloride Carbon Dioxide BUN Creatinine Glucose POC Glucose 178 H 219 H 167 H Hemoglobin A1c Calcium Ferritin Alkaline Phosphatase Lactate Dehydrogenase Total Creatine Kinase C-Reactive Protein Albumin Thxze-4-Uuoiicqro Cpzbu-7-Bwqddtats Beta Globulins PEP Interpretation Urine Creatinine Complement C3 Complement C4 Coronavirus (PCR) 06/10/20 06/10/20 06/10/20 00:34 00:34 04:42 WBC 18.6 H RBC MCHC RDW 15.6 H Lymph % (Auto) Lymph # [place] # Seg Neutrophils % Seg Neuts % (Manual) 94.0 H Lymphocytes % (Manual) 2.0 L Seg Neutrophils # Seg Neutrophils # Man 17.5 H Lymphocytes # (Manual) 0.4 L Monocytes # (Manual) PT INR D-Dimer POC ABG pCO2 POC ABG pO2 ABG Hemoglobin Sodium Potassium 5.5 H 6.0 H Chloride Carbon Dioxide 21 L 19 L BUN 70 H 68 H Creatinine 2.6 H 2.8 H Glucose 177 H 185 H POC Glucose Hemoglobin A1c Calcium Ferritin Alkaline Phosphatase 134 H Lactate Dehydrogenase Total Creatine Kinase C-Reactive Protein Albumin 2.9 L [place]-2-Ligimzikd Gwrig-4-Ogyyfqcum Beta Globulins PEP Interpretation Urine Creatinine Complement C3 Complement C4 Coronavirus (PCR) 06/10/20 06/10/20 06/10/20 05:54 11:04 13:18 WBC RBC MCHC RDW Lymph % (Auto) Lymph # [place] # Seg Neutrophils % Seg Neuts % (Manual) Lymphocytes % (Manual) Seg Neutrophils # Seg Neutrophils # Man Lymphocytes # (Manual) Monocytes # (Manual) PT INR D-Dimer POC ABG pCO2 31.7 L POC ABG pO2 57.9 L ABG Hemoglobin Sodium Potassium Chloride Carbon Dioxide BUN Creatinine Glucose POC Glucose 171 H 243 H Hemoglobin A1c Calcium Ferritin Alkaline Phosphatase Lactate Dehydrogenase Total Creatine Kinase C-Reactive Protein Albumin Ihcva-9-Vzcefkkpf Zeacn-8-Phsdclsgg Beta Globulins PEP Interpretation Urine Creatinine Complement C3 Complement C4 Coronavirus (PCR) 06/10/20 06/11/20 06/11/20 17:28 00:14 00:14 WBC 21.1 H RBC MCHC RDW 15.4 H Lymph % (Auto) Lymph # [place] # Seg Neutrophils % Seg Neuts % (Manual) 93.0 H Lymphocytes % (Manual) 5.0 L Seg Neutrophils # Seg Neutrophils # Man 19.6 H Lymphocytes # (Manual) 1.1 L Monocytes # (Manual) PT INR D-Dimer POC ABG pCO2 POC ABG pO2 ABG Hemoglobin Sodium Potassium Chloride Carbon Dioxide 18 L BUN 73 H Creatinine 2.7 H Glucose 216 H POC Glucose 265 H Hemoglobin A1c Calcium Ferritin Alkaline Phosphatase 134 H Lactate Dehydrogenase Total Creatine Kinase C-Reactive Protein Albumin 2.7 L Hmftq-9-Zifnbfhja Xievx-7-Ykcchxiti Beta Globulins PEP Interpretation Urine Creatinine Complement C3 Complement C4 Coronavirus (PCR) 06/11/20 06/11/20 06/11/20 05:27 13:14 17:27 WBC RBC MCHC RDW Lymph % (Auto) Lymph # [place] # Seg Neutrophils % Seg Neuts % (Manual) Lymphocytes % (Manual) Seg Neutrophils # Seg Neutrophils # Man Lymphocytes # (Manual) Monocytes # (Manual) PT INR D-Dimer POC ABG pCO2 POC ABG pO2 ABG Hemoglobin Sodium Potassium Chloride Carbon Dioxide BUN Creatinine Glucose POC Glucose 241 H 273 H 317 H Hemoglobin A1c Calcium Ferritin Alkaline Phosphatase Lactate Dehydrogenase Total Creatine Kinase C-Reactive Protein Albumin Mklgb-8-Payrnjhls Rwtts-3-Lsvyqwydp Beta Globulins PEP Interpretation Urine Creatinine Complement C3 Complement C4 Coronavirus (PCR) 06/11/20 06/11/20 06/11/20 18:21 22:13 23:47 WBC RBC MCHC RDW Lymph % (Auto) Lymph # [place] # Seg Neutrophils % Seg Neuts % (Manual) Lymphocytes % (Manual) Seg Neutrophils # Seg Neutrophils # Man Lymphocytes # (Manual) Monocytes # (Manual) PT INR D-Dimer POC ABG pCO2 POC ABG pO2 ABG Hemoglobin Sodium Potassium Chloride Carbon Dioxide BUN Creatinine Glucose POC Glucose 350 H 317 H 303 H Hemoglobin A1c Calcium Ferritin Alkaline Phosphatase Lactate Dehydrogenase Total Creatine Kinase C-Reactive Protein Albumin Sxlzp-9-Bpqjyqkgu Lmblj-0-Oeoglxnyc Beta Globulins PEP Interpretation Urine Creatinine Complement C3 Complement C4 Coronavirus (PCR) 06/12/20 06/12/20 06/12/20 05:34 05:34 06:17 WBC 25.2 H RBC 5.14 H MCHC RDW 15.5 H Lymph % (Auto) Lymph # [place] # Seg Neutrophils % Seg Neuts % (Manual) 93.0 H Lymphocytes % (Manual) 2.0 L Seg Neutrophils # Seg Neutrophils # Man 23.4 H Lymphocytes # (Manual) 0.5 L Monocytes # (Manual) 1.3 H PT INR D-Dimer POC ABG pCO2 POC ABG pO2 ABG Hemoglobin Sodium 148 H Potassium Chloride 108.7 H Carbon Dioxide 19 L BUN 88 H Creatinine 3.7 H Glucose 314 H POC Glucose 281 H Hemoglobin A1c Calcium Ferritin Alkaline Phosphatase Lactate Dehydrogenase Total Creatine Kinase C-Reactive Protein Albumin Rxbma-8-Cnyfwtsax Xxwwa-7-Oyoldtdwc Beta Globulins PEP Interpretation Urine Creatinine Complement C3 Complement C4 Coronavirus (PCR) 06/12/20 09:32 WBC RBC MCHC RDW Lymph % (Auto) Lymph # [place] # Seg Neutrophils % Seg Neuts % (Manual) Lymphocytes % (Manual) Seg Neutrophils # Seg Neutrophils # Man Lymphocytes # (Manual) Monocytes # (Manual) PT INR D-Dimer POC ABG pCO2 30.5 L POC ABG pO2 49.5 L ABG Hemoglobin 19.3 H Sodium Potassium Chloride Carbon Dioxide BUN Creatinine Glucose POC Glucose Hemoglobin A1c Calcium Ferritin Alkaline Phosphatase Lactate Dehydrogenase Total Creatine Kinase C-Reactive Protein Albumin Xixrk-4-Xznjnqnhx Sflda-4-Qmlyuobei Beta Globulins PEP Interpretation Urine Creatinine Complement C3 Complement C4 Coronavirus (PCR)
--- NOTE | 2020-06-12 10:55 | Event Note ---
Date: 06/12/20 Spoke with on the phone to update her on current clinical status.
--- NOTE | 2020-06-12 10:55 | Progress Note ---
Assessment and Plan Pt pending intubation per critical care team. He remains in AFib HR 130-140s, suspect respiratory distress is contributing to tachycardia. Cont amio gtt and consider addition of IV cardizem if HR does not improve after intubation. Cont full dosage Lovenox BID and consider transition to OAC prior to discharge. Will obtain echo after COVID-19 infection is adequately treated. DDimer elevated - recommend r/o PE per primary/critical care team once medically stabilized. The patient has been seen in conjunction with Dr. Vega who agrees with the assessment and plan of care. - Patient Problems (1) Acute respiratory failure with hypoxia Current Visit: Yes Status: Acute (2) Pneumonia due to COVID-19 virus Current Visit: Yes Status: Acute (3) Paroxysmal atrial fibrillation with RVR Current Visit: Yes Status: Acute (4) Elevated d-dimer Current Visit: Yes Status: Acute (5) Acute kidney injury superimposed on CKD Current Visit: Yes Status: Acute (6) Hyperkalemia Current Visit: Yes Status: Acute (7) HTN (hypertension) Current Visit: Yes Status: Chronic Qualifiers: Hypertension type: essential hypertension Qualified Code(s): I10 - Essential (primary) hypertension (8) Diabetes Current Visit: Yes Status: Chronic Qualifiers: Diabetes mellitus type: type 2 Diabetes mellitus group home insulin use: with remote computer terminal operator use Diabetes mellitus complication status: with hyperglycemia Qualified Code(s): E11.65 - Type 2 diabetes mellitus with hyperglycemia; Z79.4 - FDC (current) use of insulin Subjective Date of service: 06/12/20 Principal diagnosis: COVID-19 PNA, AF RVR Interval history: pt resting in bed, in respiratory distress, on continuous BiPAP FiO2 100%, pending intubation per critical care team. in AFib RVR HR 130s-140s on telemetry, amio gtt infusing. Objective Last Vital Signs Temp 97.4 F L 06/12/20 08:00 Pulse 121 H 06/12/20 10:21 Resp 44 H 06/12/20 10:21 BP 107/72 06/12/20 10:21 Pulse Ox 96 06/12/20 10:21 - Physical Examination General: Other (on BiPAP) Neck: Positive: neck supple Cardiac: Positive: irregularly irregular, S1/S2, Tachycardia Lungs: Positive: Decreased Breath Sounds, Oxygen Abdomen: Negative: Tender Skin: Negative: Rash Musculoskeletal: No Pain Extremities: Absent: edema - Labs and Meds CBC 06/12/20 Range/Units 05:34 WBC 25.2 H (4.5-11.0) K/mm3 RBC 5.14 H (3.65-5.03) M/mm3 Hgb 15.1 (11.8-15.2) gm/dl Hct 45.1 (35.5-45.6) % Plt Count 337 (140-440) K/mm3 Comprehensive Metabolic Panel 06/12/20 Range/Units 05:34 Sodium 148 H (137-145) mmol/L Potassium 4.7 (3.6-5.0) mmol/L Chloride 108.7 H (98-107) mmol/L Carbon Dioxide 19 L (22-30) mmol/L BUN 88 H (9-20) mg/dL Creatinine 3.7 H (0.8-1.3) mg/dL Glucose 314 H (75-100) mg/dL Calcium 9.5 (8.4-10.2) mg/dL - Imaging and Cardiology EKG: report reviewed, image reviewed Echo: pending - Telemetry EKG Rhythm: Atrial Fibrillation
--- NOTE | 2020-06-12 11:26 | XRay Report ---
CHEST 1 VIEW INDICATION: Hypoxemia, COVID 10 positive, recent intubation. COMPARISON: 06/10/2020 FINDINGS: Support devices: The endotracheal tube terminates 5.9 cm superior to the daryl. Heart: Within normal limits. Lungs/Pleura: Diffuse bilateral lung opacities or pulmonary edema appears relatively stable. There is new subcutaneous gas in the left side of the neck and left axilla. Tiny left apical pneumothorax is suggested. I also question if there is small pneumomediastinum. Additional findings: None. IMPRESSION: Endotracheal tube as described. There is new subcutaneous gas in the left side of the neck and left axillary soft tissues. Tiny left apical pneumothorax and possibly small pneumomediastinum is suggeste d. Consider further evaluation with CT. Signer Name: Giovanni Kirk Jr, MD Signed: 06/12/2020 11:22 AM Workstation Name: [id number]
--- NOTE | 2020-06-12 11:36 | Progress Note ---
Assessment and Plan 1. Acute kidney injury: KEITH superimposed on CKD stage 3 in the setting of severe COVID infection. Renal US pending. UA results noted. Monitor renal function. Increase in the creatinine level noted. Avoid nephrotoxic agents. Meds dosage based on GFR. Monitor for ENDOSCOPY NURSE needs. 2. FEN: Hyperkalemia, improved, monitor. Metabolic acidosis, monitor. Monitor lytes and volume status. 3. Acute hypoxic respiratory failure: 2/2 COVID-19 PNA. Intubated 06/12. Followed by Pulmonary. 4. Bilateral COVID-19 PNA: Followed by ID. 5. A.fib with RVR: On Amiodarone. 6. DM with hyperglycemia: Accu-Check, sliding scale coverage, ADA diet. 7. Hypertension: Monitor BP. - Subjective: Patient was seen and examined from outside the [facility]. In ICU. - General Appearance General appearance: well-developed, appears stated age, no distress, intubated, on vent HEENT: ATNC Neurologic: sedated Tele: A.fib Subjective Date of service: 06/12/20 Principal diagnosis: COVID-19 PNA, AF RVR Objective - Vital Signs Vital signs: Vital Signs - 12hr 06/12/20 06/12/20 06/12/20 00:00 00:30 01:00 Temperature 98.9 F Pulse Rate 130 H 128 H 119 H Pulse Rate [ 128 H From Monitor] Respiratory 41 H 37 H 42 H Rate Blood Pressure 137/88 134/83 128/93 O2 Sat by Pulse 95 94 95 Oximetry 06/12/20 06/12/20 06/12/20 01:30 02:00 02:30 Temperature Pulse Rate 133 H 128 H 124 H Pulse Rate [ From Monitor] Respiratory 35 H 48 H 29 H Rate Blood Pressure 140/86 140/86 144/90 O2 Sat by Pulse 97 100 87 Oximetry 06/12/20 06/12/20 06/12/20 03:00 03:30 04:00 Temperature 98.3 F Pulse Rate 123 H 121 H 136 H Pulse Rate [ 116 H From Monitor] Respiratory 26 H 17 45 H Rate Blood Pressure 132/88 142/90 133/78 O2 Sat by Pulse 96 93 97 Oximetry 06/12/20 06/12/20 06/12/20 04:30 05:00 05:30 Temperature Pulse Rate 115 H 126 H 139 H Pulse Rate [ From Monitor] Respiratory 29 H 46 H 40 H Rate Blood Pressure 146/79 137/82 142/89 O2 Sat by Pulse 94 91 94 Oximetry 06/12/20 06/12/20 06/12/20 05:57 06:00 06:30 Temperature Pulse Rate 115 H 128 H 134 H Pulse Rate [ From Monitor] Respiratory 27 H 39 H 47 H Rate Blood Pressure 113/86 104/80 135/97 O2 Sat by Pulse 91 90 91 Oximetry 06/12/20 06/12/20 06/12/20 07:00 07:30 07:58 Temperature Pulse Rate 137 H 135 H 140 H Pulse Rate [ From Monitor] Respiratory 48 H 39 H 42 H Rate Blood Pressure 124/84 134/87 143/90 O2 Sat by Pulse 87 90 85 Oximetry 06/12/20 06/12/20 08:00 10:21 Temperature 97.4 F L Pulse Rate 139 H 121 H Pulse Rate [ 139 H From Monitor] Respiratory 38 H 44 H Rate Blood Pressure 143/90 107/72 O2 Sat by Pulse 86 96 Oximetry - Lab 06/12/20 05:34 06/12/20 05:34 Most recent lab results ABG pH 7.420 (7.320-7.450) 06/12/20 09:32 Calcium 9.5 mg/dL (8.4-10.2) 06/12/20 05:34 Magnesium 2.20 mg/dL (1.7-2.3) 05/31/20 15:23 Urine Creatinine 161.6 mg/dL (0.1-20.0) H 06/01/20 Unknown Urine Sodium 47 mmol/L 06/01/20 Unknown Medications & Allergies - Medications Allergies/Adverse Reactions: Allergies lisinopril Allergy (Verified 05/31/20 13:03) Angioedema Penicillins Allergy (Verified 05/31/20 13:03) Hives Home Medications: Home Medications Medication Instructions Recorded Confirmed Last Taken Type Acetaminophen [Acetaminophen TAB] 650 mg PO Q4H PRN #30 tablet 02/15/17 Unknown Rx AtorvaSTATin [Lipitor] 20 mg PO QHS tablet 02/15/17 Unknown Rx Cipro/Dexameth 0.3/0.1% [Ciprodex 4 drops AU BID bottle 02/15/17 Unknown Rx OTIC] Detemir (Nf) [Levemir (Nf)] 100 units SUB-Q QHS units 02/15/17 Unknown Rx Dextrose 50% in Water [D50W (25GM) 50 ml IV PRN PRN #30 syringe 02/15/17 Unknown Rx Syringe] Enoxaparin 40 mg SUB-Q QDAY syringe 02/15/17 Unknown Rx Lipase/Protease/Amylase [Pancreaze 1 each FEEDTUBE PRN PRN #30 capsule 02/15/[address],500 Unit] Metoprolol [Lopressor TAB] 25 mg PO BID tablet 02/15/17 Unknown Rx Metoprolol [Lopressor TAB] 25 mg PO BID #60 tablet 02/15/17 Unknown Rx Ondansetron [Zofran INJ] 4 mg IV Q8H PRN #30 vial 02/15/17 Unknown Rx Prednisone [predniSONE 5 mg (6-Day 5 mg PO .TAPER #1 tab.ds.pk 02/15/17 Unknown Rx Pack, 21 Tabs)] Simple Syrup 15 ml FEEDTUBE PRN PRN #30 02/15/17 Unknown Rx oral.liqd Simple Syrup 30 ml FEEDTUBE PRN PRN #30 02/15/17 Unknown Rx oral.liqd Sodium Bicarbonate 325 mg FEEDTUBE PRN PRN #30 tablet 02/15/17 Unknown Rx amLODIPine 10 mg PO DAILY tablet 02/15/17 Unknown Rx amLODIPine [Norvasc] 10 mg PO DAILY #30 tab 02/15/17 Unknown Rx bisacodyL [Dulcolax suppos] 10 mg FL QDAY PRN #30 supp.rect 02/15/17 Unknown Rx chlorproMAZINE [Thorazine] 10 mg PO Q6H PRN #30 tablet 02/15/17 Unknown Rx dexAMETHasone [Decadron] 6 mg IV Q6HR vial 02/15/17 Unknown Rx hydrALAZINE [Apresoline INJ] 10 mg IV Q6HR PRN #30 vial 02/15/17 Unknown Rx oxyCODONE /ACETAMINOPHEN [Percocet 1 tab PO Q4H PRN #30 tablet 02/15/17 Unknown Rx 5/325 mg] oxyCODONE /ACETAMINOPHEN [Percocet 1 tab PO Q4HR #30 tab 02/15/17 Unknown Rx 5/325] tiZANidine [Zanaflex 4mg TAB] 4 mg PO Q8H PRN #30 tablet 02/15/17 Unknown Rx Permethrin 5% [Acticin 5% CREAM] 1 applicatio TP ONCE #1 tube 06/11/17 Unknown Rx Azithromycin [Zithromax Z-BENJIE] 250 mg PO DAILY 1 Days tab 11/23/18 Unknown Rx Ondansetron [Zofran Odt] 4 mg PO Q8HR PRN #14 tab.rapdis 11/23/18 Unknown Rx traMADoL [Ultram 50 MG tab] 50 mg PO Q4HR PRN #14 tablet 11/23/18 Unknown Rx Active Medications: Generic Name Dose Route Start Last Admin Trade Name Freq PRN Reason Stop Dose Admin Acetaminophen 650 mg 05/31/20 15:49 Tylenol PO Q6H PRN Pain MILD(1-3)/Fever >100.5/LEBRON Albuterol 2.5 mg 05/31/20 15:49 Proventil IH Q3HRT PRN Shortness Of Breath Atorvastatin Calcium 20 mg 05/31/20 22:00 06/11/20 22:11 Lipitor PO Not Given QHS CHERI Bisacodyl 10 mg 05/31/20 15:57 Dulcolax FL QDAY PRN Constipation unrelieved by MOM Chlorpromazine HCl 10 mg 05/31/20 15:57 Thorazine PO Q6H PRN Hiccups Dextrose 50 ml 05/31/20 15:59 06/07/20 10:48 D50w (25gm) Syringe IV 20 ml Q30MIN PRN Administration Hypoglycemia Protocol Enoxaparin Sodium 100 mg 06/10/20 10:00 06/12/20 09:25 Enoxaparin SUB-Q 100 mg Q24HR CHERI Administration Amiodarone HCl 900 mg/ 500 mls @ 33.333 mls/hr 06/11/20 11:30 06/11/20 18:30 Dextrose IV 0.5 mg/min DIRECT CHERI 16.667 mls/hr Infusion Protocol 1 MG/MIN Insulin Glargine 10 units 06/11/20 22:00 06/11/20 22:11 Lantus SUB-Q 10 units QHS CHERI Administration Insulin Human Lispro 0 unit 06/11/20 12:00 06/12/20 06:07 Humalog SUB-Q 6 unit Q6HR CHERI Administration Protocol Methylprednisolone Sodium Succinate 40 mg 06/11/20 14:00 06/12/20 06:07 Solu-Medrol IV 40 mg Q8HR CHERI Administration Metoprolol Tartrate 5 mg 06/09/20 14:52 06/11/20 05:13 Metoprolol IV 5 mg Q6HR PRN Administration Tachyarrhythmias Naloxone HCl 0.1 mg 05/31/20 15:49 Naloxone IV Q2MIN PRN Res Rate </= 8 or 02 SAT < 92% Ondansetron HCl 4 mg 05/31/20 15:57 Zofran IV Q8H PRN N/V unrelieved by Anna Oxycodone/Acetaminophen 1 tab 05/31/20 15:49 06/03/20 00:57 Percocet 5/325 PO 1 tab Q6H PRN Administration Pain, Moderate (4-6) Sodium Chloride 10 ml 05/31/20 22:00 06/12/20 09:25 Sodium Chloride Flush Syringe 10 Ml IV 10 ml BID CHERI Administration Sodium Chloride 10 ml 05/31/20 15:49 Sodium Chloride Flush Syringe 10 Ml IV PRN PRN LINE FLUSH Tizanidine HCl 4 mg 05/31/20 15:57 06/08/20 21:47 Zanaflex PO 4 mg Q8H PRN Administration Muscle Spasm
[2020-06-12] MEDS ORDERED: SODIUM CHLORIDE 0.9% 1000 ML 1,000 ML IV ONE (12:09)
[2020-06-12] MEDS ORDERED: MIDAZOLAM 2 MG/2 ML INJ IV ONE ×2 (12:10→12:11)
[2020-06-12] MEDS ORDERED: ETOMIDATE 20 MG/10 ML INJ IV ONE (12:10)
[2020-06-12] MEDS ORDERED: MINERAL OIL/PETROLATUM, WHITE OPHTH OINT 3.5 GM OU PRN (12:11)
[2020-06-12] MEDS ORDERED: LIP THERAPY VASELINE TP PRN (12:11)
[2020-06-12] MEDS ORDERED: LACTATED RINGERS 1,000 ML IV ONE (13:57)
[2020-06-12] MEDS ORDERED: SODIUM BICARB 8.4% 50 MEQ/50 ML SYRINGE IV ONE (13:58)
[2020-06-12] MEDS: AMIODARONE 900 MG in DEXTROSE 5% IN WATER 482 ML IV SCH (14:16)
--- NOTE | 2020-06-12 15:34 | Progress Note ---
Assessment and Plan Cultures: Coronavirus PCR:positive Blood culture: no growth A/P: 54-year-old male with diabetes, CKD, prior CVA, obesity was admitted to the hospital with complaints of cough, shortness of breath along with fatigue and malaise: #Severe COVID pneumonia: elevated inflammatory markers, now on BiPAP in the ICU. #Acute hypoxic respiratory failure: on high flow. #KEITH on CKD Recs: Completed dexamethasone Not a candidate for Remdesivir due to renal failure trend ferritin, LDH, d-dimer, CRP every 2-3 days for risk stratification and to assess disease progression prophylactic anticoagulation based on d-dimer Start cefepime based on worsening white count and procalcitonin. Obtain sputum cultures. Darby Redding MD [facility] ([facility]) M: [phone] O: [phone] F: [phone] Subjective Date of service: 06/12/20 Principal diagnosis: COVID-19 PNA, AF RVR Interval history: Afebrile, white count is 25.2. Procalcitonin is now doubled from. Patient is now intubated. Imaging personally reviewed: Chest x-ray: New subcutaneous gas in the left side of the neck Objective - Exam Narrative Exam: Physical exam deferred due to PPE conservation strategy. Please refer to primary team's note. - Constitutional Vitals: Vital Signs Temp Pulse Resp BP Pulse Ox 97.8 F 100 H 24 89/54 90 06/12/20 12:00 06/12/20 15:00 06/12/20 15:00 06/12/20 15:00 06/12/20 15:00 Temperature -Last 24 Hours Temperature 97.8 F Temperature 97.4 F Temperature 98.3 F Temperature 98.9 F Temperature 98.7 F Temperature 98.7 F Temperature 97.5 F - Labs CBC & Chem 7: 06/12/20 05:34 06/12/20 05:34 Labs: Abnormal lab results 06/11/20 06/11/20 06/11/20 Range/Units 13:14 17:27 18:21 WBC (4.5-11.0) K/mm3 RBC (3.65-5.03) M/mm3 RDW (13.2-15.2) % Seg Neuts % (Manual) (40.0-70.0) % Lymphocytes % (Manual) (13.4-35.0) % Seg Neutrophils # Man (1.8-7.7) K/mm3 Lymphocytes # (Manual) (1.2-5.4) K/mm3 Monocytes # (Manual) (0.0-0.8) K/mm3 POC ABG pCO2 (32.0-48.0) mmHg POC ABG pO2 (83-108) mmHg Sodium (137-145) mmol/L Chloride (98-107) mmol/L Carbon Dioxide (22-30) mmol/L BUN (9-20) mg/dL Creatinine (0.8-1.3) mg/dL Glucose (75-100) mg/dL POC Glucose 273 H 317 H 350 H (70-105) 06/11/20 06/11/20 06/12/20 Range/Units 22:13 23:47 05:34 WBC 25.2 H (4.5-11.0) K/mm3 RBC 5.14 H (3.65-5.03) M/mm3 RDW 15.5 H (13.2-15.2) % Seg Neuts % (Manual) 93.0 H (40.0-70.0) % Lymphocytes % (Manual) 2.0 L (13.4-35.0) % Seg Neutrophils # Man 23.4 H (1.8-7.7) K/mm3 Lymphocytes # (Manual) 0.5 L (1.2-5.4) K/mm3 Monocytes # (Manual) 1.3 H (0.0-0.8) K/mm3 POC ABG pCO2 (32.0-48.0) mmHg POC ABG pO2 (83-108) mmHg Sodium (137-145) mmol/L Chloride (98-107) mmol/L Carbon Dioxide (22-30) mmol/L BUN (9-20) mg/dL Creatinine (0.8-1.3) mg/dL Glucose (75-100) mg/dL POC Glucose 317 H 303 H (70-105) 06/12/20 06/12/20 06/12/20 Range/Units 05:34 06:17 09:32 WBC (4.5-11.0) K/mm3 RBC (3.65-5.03) M/mm3 RDW (13.2-15.2) % Seg Neuts % (Manual) (40.0-70.0) % Lymphocytes % (Manual) (13.4-35.0) % Seg Neutrophils # Man (1.8-7.7) K/mm3 Lymphocytes # (Manual) (1.2-5.4) K/mm3 Monocytes # (Manual) (0.0-0.8) K/mm3 POC ABG pCO2 30.5 L (32.0-48.0) mmHg POC ABG pO2 49.5 L (83-108) mmHg Sodium 148 H (137-145) mmol/L Chloride 108.7 H (98-107) mmol/L Carbon Dioxide 19 L (22-30) mmol/L BUN 88 H (9-20) mg/dL Creatinine 3.7 H (0.8-1.3) mg/dL Glucose 314 H (75-100) mg/dL POC Glucose 281 H (70-105) 06/12/20 Range/Units 11:38 WBC (4.5-11.0) K/mm3 RBC (3.65-5.03) M/mm3 RDW (13.2-15.2) % Seg Neuts % (Manual) (40.0-70.0) % Lymphocytes % (Manual) (13.4-35.0) % Seg Neutrophils # Man (1.8-7.7) K/mm3 Lymphocytes # (Manual) (1.2-5.4) K/mm3 Monocytes # (Manual) (0.0-0.8) K/mm3 POC ABG pCO2 (32.0-48.0) mmHg POC ABG pO2 (83-108) mmHg Sodium (137-145) mmol/L Chloride (98-107) mmol/L Carbon Dioxide (22-30) mmol/L BUN (9-20) mg/dL Creatinine (0.8-1.3) mg/dL Glucose (75-100) mg/dL POC Glucose 353 H (70-105)
[2020-06-12] MEDS ORDERED: CEFEPIME/NS 2 GM/100 ML 2 GM/100 ML BAG IV SCH (16:00)
--- NOTE | 2020-06-12 16:44 | XRay Report ---
ABDOMEN 1 VIEW INDICATION / CLINICAL INFORMATION: OGT placement. COMPARISON: One view of the chest from earlier today. KUB from 02/12/2017. FINDINGS: TUBES / LINES: An orogastric tube terminates at the GE junction. The side-port of the tube projects o olivier the distal third of the esophagus. BOWEL GAS PATTERN: There is moderate gaseous distention of the stomach. No additional significant abn ormality. FREE AIR / EXTRALUMINAL GAS: None seen. ADDITIONAL FINDINGS: Possible pneumobilia is noted in the right upper quadrant. Bilateral pulmonary o pacities are unchanged. IMPRESSION: 1. OG tube as above. Advancement of the tube by 9-10 cm is recommended if there are no clinical contr aindications. 2. Moderate gaseous distention of the stomach. 3. Possible pneumobilia. Signer Name: Kayode Lakhani MD Signed: 06/12/2020 4:40 PM Workstation Name: [id number]
[2020-06-12] MEDS: NORepinephrine/NS 4 MG-250 ML 4 MG/250 ML BAG IV SCH (16:59)
[2020-06-12] MEDS: CEFEPIME/NS 1 GM/100 ML 1 GM/100 ML BAG IV SCH ×2 (17:46→21:06)
--- NOTE | 2020-06-12 18:03 | XRay Report ---
ABDOMEN 1 VIEW(S) INDICATION / CLINICAL INFORMATION: OGT Placement. COMPARISON: Examination earlier on 06/12/2020. FINDINGS: TUBES / LINES: The tip of an esophagogastric tube projects over the gastroesophageal junction. BOWEL GAS PATTERN/EXTRALUMINAL GAS: Stable gaseous distention of the stomach. No pneumatosis or secon emani signs of free air. ADDITIONAL FINDINGS: No significant additional findings. IMPRESSION: 1. The tip of the esophagogastric tube projects over the gastroesophageal junction and advancement is recommended. Signer Name: Prasad Luna MD Signed: 06/12/2020 5:58 PM Workstation Name: [id number]
[2020-06-12] MEDS: INSULIN GLARGINE 100 UNITS/ML SUB-Q SCH (21:03)
[2020-06-13] MEDS: INSULIN LISPRO 100 UNIT/ML VIAL 3 mL SUB-Q SCH ×7 (00:21→18:31)
[2020-06-13] MEDS: NORepinephrine/NS 4 MG-250 ML 4 MG/250 ML BAG IV SCH ×7 (01:46→20:57)
[2020-06-13 04:09] LABS: ABG Base Excess -7.3 mmol/L (-2.0-3.0); ABG HCO3 24.2 mmol/L (20.0-26.0); ABG Methemoglobin 0.9 % (0.0-1.5); ABG Oxygen Saturation 98.6 % (95.0-99.0); ABG PCO2 81.5 mm Hg; ABG PO2 172.6 mm Hg (80.0-90.0)
[2020-06-13 04:22] LABS: ABG PH 7.091 pH Units (7.350-7.450)
[2020-06-13] MEDS ORDERED: ATROPINE 0.1% (1 MG/10 ML) CARDIAC SYRINGE ONE (05:00)
[2020-06-13] MEDS ORDERED: SODIUM BICARB 8.4% 50 MEQ/50 ML SYRINGE IV ONE ×2 (05:00→08:00)
[2020-06-13] MEDS ORDERED: EPINEPHrine 1 MG/10 ML SYRINGE ONE (05:00)
[2020-06-13] MEDS ORDERED: LIDOCAINE DRIP IV ONE (05:28)
[2020-06-13 05:44] LABS: Mean Corpuscular HGB Conc 32 % (32-34); Mean Corpuscular Volume 93 fl (84-94); Platelet Count 314 K/mm3 (140-440)
[2020-06-13 05:50] LABS: Basophils # (Auto) 0.1 K/mm3 (0.0-0.1); Basophils % (Auto) 0.3 % (0.0-1.8); Lymphocytes # (Auto) 0.7 K/mm3 (1.2-5.4); Lymphocytes % (Auto) 2.4 % (13.4-35.0); Monocytes # (Auto) 1.6 K/mm3 (0.0-0.8); Monocytes % (Auto) 5.3 % (0.0-7.3)
[2020-06-13] MEDS: methylPREDNISolone Sod Succinate 40 MG/1 ML INJ IV SCH ×3 (05:51→21:40)
[2020-06-13 05:57] LABS: Albumin 2.5 g/dL (3.9-5); Calcium 7.7 mg/dL (8.4-10.2)
[2020-06-13] MEDS ORDERED: SODIUM CHLORIDE 0.9% 1000 ML 1,000 ML IV ONE (06:12)
[2020-06-13] MEDS ORDERED: SODIUM CHLORIDE 0.9% 1000 ML 1,000 ML IV SCH (06:15)
--- NOTE | 2020-06-13 06:49 | XRay Report ---
CHEST 1 VIEW INDICATION: POST CODE ett placement COMPARISON: 06/12/2020 FINDINGS: SUPPORT DEVICES: Endotracheal tube tip in good position. HEART / MEDIASTINUM: No significant abnormality. LUNGS / PLEURA: Diffuse increased interstitium is again noted with airspace changes left lower lobe. Increasing subcutaneous emphysema along Chest wall left supraclavicular region is noted. No pneumothorax. ADDITIONAL FINDINGS: IMPRESSION: 1. Progressive subcutaneous emphysema 2. Diffuse interstitial pulmonary process with volume loss left lower lobe Signer Name: Giuseppe Clifton MD Signed: 06/13/2020 6:44 AM Workstation Name: [id number]
[2020-06-13] MEDS ORDERED: INSULIN REGULAR, HUMAN 100 UNIT/ML 3ML VIAL IV ONE (08:00)
[2020-06-13] MEDS ORDERED: DEXTROSE 50% IN WATER (25GM) 50 ML SYRINGE IV ONE (08:00)
--- NOTE | 2020-06-13 08:14 | Event Note ---
Date: 06/13/20 PATIENT WENT INTO CARDIOPULMONARY ARREST EARLY THIS MORNING AND [facility] WAS CALLED. ON ARRIVAL CPR WAS IN PROGRESS AND PATIENT ALREADY INTUBATED . PATIENT.S PULSE AND BLOOD PRESSURE WAS REGAINED AT ABOUT 5.29 A.M AFTER 2 ROUNDS OF CPR USING FULL ACLS PROTOCOL.
--- NOTE | 2020-06-13 08:56 | Progress Note ---
Assessment and Plan Assessment and plan: 54 year old male presenting with shortness of breath, with hypoxia on admission, saturation in the low 80s. Here, his chest x-ray showed bilateral infiltrates and COVID-19 test was positive. He was admitted to the hospital. Patient was started on steroids and ID and pulmonology were consulted. 06/02: Continue current management. Patient on high flow. If can tolerate prone recommend prone position during hours of sleep. 06/03: Continue supportive care. Overall prognosis is guarded. Will discuss proceed with obtaining consent for convalescent plasma. Poor prognosis considering COVID-19 and complicated by renal failure. 06/04: Continue current therapy consent obtained for convalescent plasma. Will discuss with laboratory to obtain the plasma. 06/05: Continue supportive care. Poor prognosis. Patient will like to think about plasma therapy and not ready to sign the consent now. 06/06: Patient remains on high flow with hypoxia persistent despite 100%. Still wants to think about the convalescent plasma therapy. Continue current support with pulmonary assistance. Mild improvement in pulmonary status still not a candidate for Remdesivir. Will obtain nephrology consultation to assist in management 06/07. Patient seen on BiPAP today. Nephrology consulted for impaired renal function. 06/08. He agrees to get convalescent plasma. Order placed in chart. Discussed with blood bank. 06/09: Convalescent plasma ordered, poor prognosis, still monitoring renal function, continues on BIPAP. Check markers for COVID19. continue steroids to complete 10 days. 06/10: Continue supportive care, cardiology input noted, will start on cardizem drip, Continue aniticoagulation, Renal function worse, will monitor and discuss with nephrology about possible initiating HD. 06/11/2020 -Patient is on continuous BiPAP. Pulmonary is following. -On amiodarone and IV metoprolol as needed. Cardiology is following. Patient is on anticoagulation. -Nephrology is following. Potassium level is ok 06/12/2020 -Patient's oxygen saturation was 80% despite 100% BiPAP -Pulmonary intubated the patient, currently sedated and on mechanical ventilator -Patient is still in A. fib and heart rate is not controlled, cardiology recommend to continue with amiodarone GTT, if heart rate didn't controlled after intubation will start with Cardizem drip 06/13/2020 -Was coded earlier this morning and was resuscitated successfully according to ACLS protocol -Patient was hypotensive and is on Levophed -ABG was done and pH was 7, on BMP potassium is 8.8, creatinine is 6.4. I put the patient on calcium gluconate, Kayexalate, bicarb drip and discussed with extension course counselor Dr. Lux and he agreed with the plan of care. He said he is going to do dialysis. 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 The aggregate critical care time was [35] minutes. This time is in addition to time spent performing reported procedures but includes the following: [x] Data Review and interpretation [x] Patient assessment and monitoring of vital signs [x] Documentation [x] Medication orders and management History Interval history: Patient was seen and evaluated this morning Patient's saturation was 80 despite on 100% BiPAP Pulmonary intubated the patient [06/12/2020] Patient was coded earlier this morning and successfully resuscitated according to ACLS protocol 06/13/20 Hospitalist Physical - Physical exam Narrative exam: Patient is intubated and on mechanical ventilator The patient is obese Vital signs as documented. Head exam is unremarkable. No scleral icterus . Neck is without jugular venous distension, thyromegaly, or carotid bruits. Lungs for mechanical ventilation Cardiac exam reveals regular rate and Rhythm. Abdominal exam reveals normal bowel sounds, nontender, no organomegaly. Extremities are nonedematous and both femoral and pedal pulses are normal. BACKUP ADMINISTRATOR: Sedated. - Constitutional Vitals: Temp Pulse Resp BP Pulse Ox 98.8 F 101 H 39 H 113/73 96 06/13/20 08:00 06/13/20 08:25 06/13/20 06:15 06/13/20 08:25 06/13/20 08:25 General appearance: Present: no acute distress HEART Score - HEART Score Troponin: Troponin T 0.021 ng/mL (0.00-0.029) 05/31/20 15:23 Results - Labs CBC & Chem 7: 06/13/20 05:06 06/13/20 05:06 Labs: Laboratory Last Values WBC 30.3 K/mm3 (4.5-11.0) H 06/13/20 05:06 RBC 4.10 M/mm3 (3.65-5.03) 06/13/20 05:06 Hgb 12.0 gm/dl (11.8-15.2) D 06/13/20 05:06 Hct 38.0 % (35.5-45.6) D 06/13/20 05:06 MCV 93 fl (84-94) 06/13/20 05:06 MCH 29 pg (28-32) 06/13/20 05:06 MCHC 32 % (32-34) 06/13/20 05:06 RDW 16.0 % (13.2-15.2) H 06/13/20 05:06 Plt Count 314 K/mm3 (140-440) 06/13/20 05:06 Lymph % (Auto) 2.4 % (13.4-35.0) L 06/13/20 05:06 Kemper % (Auto) 5.3 % (0.0-7.3) 06/13/20 05:06 Eos % (Auto) 0.0 % (0.0-4.3) 06/13/20 05:06 Baso % (Auto) 0.3 % (0.0-1.8) 06/13/20 05:06 Lymph # 0.7 K/mm3 (1.2-5.4) L 06/13/20 05:06 Kemper # 1.6 K/mm3 (0.0-0.8) H 06/13/20 05:06 Eos # 0.0 K/mm3 (0.0-0.4) 06/13/20 05:06 Baso # 0.1 K/mm3 (0.0-0.1) 06/13/20 05:06 Add Manual Diff Complete 06/12/20 05:34 Total Counted 100 06/12/20 05:34 Seg Neutrophils % Automatic Folder Seamer 06/13/20 05:06 Seg Neuts % (Manual) 93.0 % (40.0-70.0) H 06/12/20 05:34 Band Neutrophils % 0 % 06/12/20 05:34 Lymphocytes % (Manual) 2.0 % (13.4-35.0) L 06/12/20 05:34 Reactive Lymphs % (Man) 0 % 06/12/20 05:34 Monocytes % (Manual) 5.0 % (0.0-7.3) 06/12/20 05:34 Eosinophils % (Manual) 0 % (0.0-4.3) 06/12/20 05:34 Basophils % (Manual) 0 % (0.0-1.8) 06/12/20 05:34 Metamyelocytes % 0 % 06/12/20 05:34 Myelocytes % 0 % 06/12/20 05:34 Promyelocytes % 0 % 06/12/20 05:34 Blast Cells % 0 % 06/12/20 05:34 Nucleated RBC % Not Reportable 06/12/20 05:34 Seg Neutrophils # 27.9 K/mm3 (1.8-7.7) H 06/13/20 05:06 Seg Neutrophils # Man 23.4 K/mm3 (1.8-7.7) H 06/12/20 05:34 Band Neutrophils # 0.0 K/mm3 06/12/20 05:34 Lymphocytes # (Manual) 0.5 K/mm3 (1.2-5.4) L 06/12/20 05:34 Abs React Lymphs (Man) 0.0 K/mm3 06/12/20 05:34 Monocytes # (Manual) 1.3 K/mm3 (0.0-0.8) H 06/12/20 05:34 Eosinophils # (Manual) 0.0 K/mm3 (0.0-0.4) 06/12/20 05:34 Basophils # (Manual) 0.0 K/mm3 (0.0-0.1) 06/12/20 05:34 Metamyelocytes # 0.0 K/mm3 06/12/20 05:34 Myelocytes # 0.0 K/mm3 06/12/20 05:34 Promyelocytes # 0.0 K/mm3 06/12/20 05:34 Blast Cells # 0.0 K/mm3 06/12/20 05:34 WBC Morphology Not Reportable 06/12/20 05:34 Hypersegmented Neuts Not Reportable 06/12/20 05:34 Hyposegmented Neuts Not Reportable 06/12/20 05:34 Hypogranular Neuts Not Reportable 06/12/20 05:34 Smudge Cells Not Reportable 06/12/20 05:34 Toxic Granulation Not Reportable 06/12/20 05:34 Toxic Vacuolation Not Reportable 06/12/20 05:34 Dohle Bodies Not Reportable 06/12/20 05:34 Pelger-Huet Anomaly Not Reportable 06/12/20 05:34 Edwige Rods Not Reportable 06/12/20 05:34 Platelet Estimate Consistent w auto 06/12/20 05:34 Clumped Platelets Not Reportable 06/12/20 05:34 Plt Clumps, EDTA Not Reportable 06/12/20 05:34 Large Platelets Not Reportable 06/12/20 05:34 Giant Platelets Not Reportable 06/12/20 05:34 Platelet Satelliting Not Reportable 06/12/20 05:34 Plt Morphology Comment Not Reportable 06/12/20 05:34 RBC Morphology Not Reportable 06/12/20 05:34 Dimorphic RBCs Not Reportable 06/12/20 05:34 Polychromasia Not Reportable 06/12/20 05:34 Hypochromasia Not Reportable 06/12/20 05:34 Poikilocytosis Not Reportable 06/12/20 05:34 Anisocytosis Not Reportable 06/12/20 05:34 Microcytosis Not Reportable 06/12/20 05:34 Macrocytosis Not Reportable 06/12/20 05:34 Spherocytes Not Reportable 06/12/20 05:34 Pappenheimer Bodies Not Reportable 06/12/20 05:34 Sickle Cells Not Reportable 06/12/20 05:34 Target Cells Few 06/12/20 05:34 Tear Drop Cells Not Reportable 06/12/20 05:34 Ovalocytes Not Reportable 06/12/20 05:34 Helmet Cells Not Reportable 06/12/20 05:34 Sanchez-Minburn Bodies Not Reportable 06/12/20 05:34 Panacea Rings Not Reportable 06/12/20 05:34 [place] Cells Not Reportable 06/12/20 05:34 Bite Cells Not Reportable 06/12/20 05:34 Crenated Cell Not Reportable 06/12/20 05:34 Elliptocytes Not Reportable 06/12/20 05:34 Acanthocytes (Spur) Not Reportable 06/12/20 05:34 Rouleaux Not Reportable 06/12/20 05:34 Hemoglobin C Crystals Not Reportable 06/12/20 05:34 Schistocytes Not Reportable 06/12/20 05:34 Malaria parasites Not Reportable 06/12/20 05:34 Edinson Bodies Not Reportable 06/12/20 05:34 Hem Pathologist Commnt No 06/12/20 05:34 PT 11.5 Sec. (12.2-14.9) L 05/31/20 15:23 INR 0.83 (0.87-1.13) L 05/31/20 15:23 D-Dimer > 20905 ng/mlDDU (0-234) H 06/09/20 09:21 ABG pH 7.091 pH Units (7.350-7.450) L* 06/13/20 03:30 POC ABG pCO2 88.1 mmHg (32.0-48.0) H 06/12/20 13:17 ABG pCO2 81.5 mm Hg 06/13/20 03:30 POC ABG pO2 98.3 mmHg (83-108) 06/12/20 13:17 ABG pO2 172.6 mm Hg (80.0-90.0) H 06/13/20 03:30 POC ABG HCO3 24.2 06/12/20 13:17 ABG HCO3 24.2 mmol/L (20.0-26.0) 06/13/20 03:30 ABG O2 Saturation 98.6 % (95.0-99.0) 06/13/20 03:30 ABG O2 Content 19.4 (0.0-44) 06/13/20 03:30 POC ABG Base Excess -8.5 06/12/20 13:17 ABG Base Excess -7.3 mmol/L (-2.0-3.0) L 06/13/20 03:30 ABG Hemoglobin 14.0 gm/dl (14.0-18.0) 06/13/20 03:30 ABG Oxyhemoglobin 92.7 (94-98) L 06/12/20 13:17 ABG Carboxyhemoglobin 0.9 % (0.0-5.0) 06/13/20 03:30 ABG Methemoglobin 0.9 % (0.0-1.5) 06/13/20 03:30 Oxyhemoglobin 96.8 % (95.0-99.0) 06/13/20 03:30 Carboxyhemoglobin 0.1 (0.5-1.5) L 06/12/20 13:17 FiO2 100 % 06/13/20 03:30 Sodium 148 mmol/L (137-145) H 06/13/20 05:06 Potassium 8.8 mmol/L (3.6-5.0) H* D 06/13/20 05:06 Chloride 109.5 mmol/L (98-107) H 06/13/20 05:06 Carbon Dioxide 24 mmol/L (22-30) 06/13/20 05:06 Anion Gap 23 mmol/L 06/13/20 05:06 BUN 118 mg/dL (9-20) H 06/13/20 05:06 Creatinine 6.4 mg/dL (0.8-1.3) H D 06/13/20 05:06 Estimated GFR 11 ml/min 06/13/20 05:06 BUN/Creatinine Ratio 18 % 06/13/20 05:06 Glucose 272 mg/dL (75-100) H 06/13/20 05:06 POC Glucose 285 (70-105) H 06/13/20 06:03 Hemoglobin A1c 8.5 % (4-6) H 05/31/20 16:49 Calcium 7.7 mg/dL (8.4-10.2) L D 06/13/20 05:06 Magnesium 2.20 mg/dL (1.7-2.3) 05/31/20 15:23 Ferritin 1045.0 ng/mL (30.0-300.0) H 06/09/20 09:21 Total Bilirubin 0.30 mg/dL (0.1-1.2) 06/13/20 05:06 AST 35 units/L (5-40) 06/13/20 05:06 ALT 37 units/L (7-56) 06/13/20 05:06 Alkaline Phosphatase 115 units/L (35-129) 06/13/20 05:06 Lactate Dehydrogenase 461 units/L (91-180) H 06/09/20 09:21 Total Creatine Kinase 325 units/L (55-170) H 05/31/20 15:23 Troponin T 0.021 ng/mL (0.00-0.029) 05/31/20 15:23 C-Reactive Protein 9.30 mg/dL (0.00-1.30) H 06/09/20 09:21 NT-Pro-B Natriuret Pep 111.3 pg/mL (0-900) 06/01/20 13:41 Serum Total Protein 6.8 g/dL (6.1-8.1) 06/04/20 04:17 Total Protein 6.7 g/dL (6.3-8.2) 06/13/20 05:06 Albumin 2.5 g/dL (3.9-5) L 06/13/20 05:06 Albumin/Globulin Ratio 0.6 % 06/13/20 05:06 [id number]-5-[id number] 0.5 g/dL (0.2-0.3) H 06/04/20 04:17 Brrns-8-Xsorqbdqx 1.6 g/dL (0.5-0.9) H 06/04/20 04:17 Beta Globulins 0.6 g/dL (0.2-0.5) H 06/04/20 04:17 Gamma Globulins 1.2 g/dL (0.8-1.7) 06/04/20 04:17 Abnorm Protein Band 1 see below 06/04/20 04:17 PEP Interpretation see below H 06/04/20 04:17 Procalcitonin 0.61 ng/mL (<0.15) 06/12/20 05:34 Urine Color Yellow (Yellow) 06/01/20 Unknown Urine Turbidity Clear (Clear) 06/01/20 Unknown Urine pH 5.0 (5.0-7.0) 06/01/20 Unknown Ur Specific Stoddard 1.018 (1.003-1.030) 06/01/20 Unknown Urine Protein >500 mg/dL (Negative) 06/01/20 Unknown Urine Glucose (UA) >=500 mg/dL (Negative) 06/01/20 Unknown Urine Ketones Tr mg/dL (Negative) 06/01/20 Unknown Urine Blood Mod (Negative) 06/01/20 Unknown Urine Nitrite Neg (Negative) 06/01/20 Unknown Urine Bilirubin Neg (Negative) 06/01/20 Unknown Urine Urobilinogen < 2.0 mg/dL (<2.0) 06/01/20 Unknown Ur Leukocyte Esterase Neg (Negative) 06/01/20 Unknown Urine WBC (Auto) 4.0 /HPF (0.0-6.0) 06/01/20 Unknown Urine RBC (Auto) 9.0 /HPF (0.0-6.0) 06/01/20 Unknown U Epithel Cells (Auto) 1.0 /HPF (0-13.0) 06/01/20 Unknown Urine Mucus Few /HPF 06/01/20 Unknown Urine Eosinophils None seen (None Seen) 06/01/20 Unknown Urine Creatinine 161.6 mg/dL (0.1-20.0) H 06/01/20 Unknown Urine Sodium 47 mmol/L 06/01/20 Unknown FLACO Screen Negative (Negative) 06/03/20 13:17 Proteinase 3 (PR3) Ab <1.0 AI (<1.0) 06/03/20 13:17 Myeloperoxidase Ab <1.0 AI (<1.0) 06/03/20 13:17 Double Strand DNA Ab See scanned result 06/03/20 13:17 Complement C3 223 mg/dL (82-185) H 06/03/20 10:39 Complement C4 64 mg/dL (15-53) H 06/03/20 10:39 Coronavirus (PCR) Positive (Negative) A 06/01/20 Unknown Hepatitis A IgM Ab Non-reactive (NonReactive) 06/03/20 10:39 Hep Bs Antigen Non-reactive (Negative) 06/03/20 10:39 Hep B Core IgM Ab Non-reactive (NonReactive) 06/03/20 10:39 Hepatitis C Antibody Non-reactive (NonReactive) 06/03/20 10:39 Blood Type A POSITIVE 06/08/20 09:41 Antibody Screen Negative 06/08/20 09:41 Hess/IV: Voiding Method Indwelling Catheter IV Catheter Type [Right Triple Lumen Cath Femoral] IV Catheter Type [Right Upper Peripheral IV arm] IV Catheter Type [Right INT / Saline Lock Antecubital] Active Medications - Current Medications Current Medications: Generic Name Dose Route Start Last Admin Trade Name Freq PRN Reason Stop Dose Admin Acetaminophen 650 mg 05/31/20 15:49 Tylenol PO Q6H PRN Pain MILD(1-3)/Fever >100.5/LEBRON Albuterol 2.5 mg 05/31/20 15:49 Proventil IH Q3HRT PRN Shortness Of Breath Atorvastatin Calcium 20 mg 05/31/20 22:00 06/12/20 21:03 Lipitor PO Not Given QHS CHERI Bisacodyl 10 mg 05/31/20 15:57 Dulcolax NM QDAY PRN Constipation unrelieved by MOM Chlorpromazine HCl 10 mg 05/31/20 15:57 Thorazine PO Q6H PRN Hiccups Dextrose 50 ml 05/31/20 15:59 06/07/20 10:48 D50w (25gm) Syringe IV 20 ml Q30MIN PRN Administration Hypoglycemia Protocol Enoxaparin Sodium 100 mg 06/10/20 10:00 06/12/20 09:25 Enoxaparin SUB-Q 100 mg Q24HR CHERI Administration Hydrophilic Ointment 1 applic 06/12/20 12:11 Vaseline Lip Therapy TP Q2HR PRN Dry Lips Amiodarone HCl 900 mg/ 500 mls @ 33.333 mls/hr 06/11/20 11:30 06/12/20 14:16 Dextrose IV 0.5 mg/min DIRECT CHERI 16.667 mls/hr Administration Protocol 1 MG/MIN Propofol 1,000 mg in 100 mls @ 3.39 mls/hr 06/12/20 13:00 06/13/20 05:14 Diprivan 10 Mg/Ml IV 0 mcg/kg/min TITR CHERI 0 mls/hr Titration Protocol 5 MCG/KG/MIN Norepinephrine 4 mg in 250 mls @ 7.5 mls/hr 06/12/20 14:00 06/13/20 08:12 Levophed Drip 4 Mg/Ns 250 Ml IV 26 mcg/min TITR CHERI 97.5 mls/hr Administration Protocol 2 MCG/MIN Cefepime HCl 1 gm in 100 mls @ 200 mls/hr 06/12/20 16:00 06/12/20 21:06 Cefepime/Ns 1 Gm/100 Ml IV 200 mls/hr Q12HR CHERI Administration Sodium Chloride 1,000 mls @ 125 mls/hr 06/13/20 06:15 06/13/20 06:40 Nacl 0.9% 1000 Ml IV 125 mls/hr DIRECT CHERI Administration Calcium Gluconate 2,000 mg/ 120 mls @ 660 mls/hr 06/13/20 09:15 Sodium Chloride IV 06/13/20 09:25 ONCE ONE Sodium Bicarbonate 150 meq/ 1,150 mls @ 75 mls/hr 06/13/20 09:00 Dextrose IV DIRECT CHERI Insulin Glargine 20 units 06/12/20 22:00 06/12/20 21:03 Lantus SUB-Q Not Given QHS [facility] Insulin Human Lispro 0 unit 06/11/20 12:00 06/13/20 05:54 Humalog SUB-Q 6 unit Q6HR CHERI Administration Protocol Insulin Human Lispro 10 unit 06/12/20 16:30 06/12/20 17:31 Humalog SUB-Q 10 unit AC CHERI Administration Methylprednisolone Sodium Succinate 40 mg 06/11/20 14:00 06/13/20 05:51 Solu-Medrol IV 40 mg Q8HR CHERI Administration Metoprolol Tartrate 5 mg 06/09/20 14:52 06/11/20 05:13 Metoprolol IV 5 mg Q6HR PRN Administration Tachyarrhythmias Multi-Ingred Cream/Lotion/Oil/Oint 1 applic 06/12/20 12:11 Artificial Tears Ophth Oint OU Q4HR PRN Dry Eye(s) Naloxone HCl 0.1 mg 05/31/20 15:49 Naloxone IV Q2MIN PRN Res Rate </= 8 or 02 SAT < 92% Ondansetron HCl 4 mg 05/31/20 15:57 Zofran IV Q8H PRN N/V unrelieved by Reglan Oxycodone/Acetaminophen 1 tab 05/31/20 15:49 06/03/20 00:57 Percocet 5/325 PO 1 tab Q6H PRN Administration Pain, Moderate (4-6) Sodium Chloride 10 ml 05/31/20 22:00 06/12/20 21:06 Sodium Chloride Flush Syringe 10 Ml IV 10 ml BID CHERI Administration Sodium Chloride 10 ml 05/31/20 15:49 Sodium Chloride Flush Syringe 10 Ml IV PRN PRN LINE FLUSH Sodium Polystyrene Sulfonate 60 gm 06/13/20 09:00 Kionex PO 06/13/20 09:01 ONCE ONE Tizanidine HCl 4 mg 05/31/20 15:57 06/08/20 21:47 Zanaflex PO 4 mg Q8H PRN Administration Muscle Spasm Nutrition/Malnutrition Assess - Dietary Evaluation Nutrition/Malnutrition Findings: Nutrition Notes Start: 06/01/20 10:42 Freq: Status: Active Protocol: Document 06/11/20 13:25 JEFFERSON (Rec: 06/11/20 13:35 JEFFERSON [id number]) Co-Sign 06/11/20 13:25 LP Nutrition Notes Need for Assessment generated from: MD Order Initial or Follow up Reassessment Current Diagnosis CKD(stage I-IV),Diabetes, Hypertension,Stroke Other Pertinent Diagnosis COVID-19 (+) Current Diet Renal Labs/Tests Reviewed Pertinent Medications Lantus 10 units Humalog 6 units Solu-Medrol Height 5 ft 9 in Weight 113 kg Broad Top Body Weight (kg) 72.72 BMI 36.8 Weight Status Obese Subjective/Other Information Per RN, pt ate ~75%. Pt sleeping at visit. Pt remains on BiPAP. Burn Absent Trauma Absent GI Symptoms None Current % PO Good (75-100%) Minimum of two criteria No physical signs of malnutrition #1 Nutrition Diagnosis Altered nutrition-related laboratory values As Evidenced by Signs and Symptoms HgbA1c 8.5 Diagnosis Progress(for reassessment Continues documentation) Is patient on ventilator? No Is Patient Ambulatory and/or Out of Bed No REE-([facility] [place]-confined to bed) 2344.476 Kcal/Kg value to use for calculation 16 Approximate Energy Requirements Using 1808 kcal/Kg Additional Notes Protein Needs 145g (up to 2g/ kg IBW) Fluid: 1ml/kcal Nutrition Intervention Change Diet Order: Continue Goal #1 Improve BG control Goal #2 PO intake to meet at least 75% of energy and protein needs. Follow-Up By: 06/18/20 Additional Comments F/U for stable intakes and diet education needs
[2020-06-13] MEDS ORDERED: SODIUM POLYSTYRENE 15 GM/60 ML ORAL LIQD PO ONE (09:00)
--- NOTE | 2020-06-13 09:05 | Progress Note ---
Assessment and Plan 1. Acute kidney injury: KEITH superimposed on CKD stage 3 in the setting of severe COVID infection. Renal US pending. UA results noted. Monitor renal function. Increase in the creatinine level noted. Avoid nephrotoxic agents. Meds dosage based on GFR. 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 Patient require hemodialysis due to worsening renal function and hyperkalemia. Explained patient's (06/13) the indications, benefits, risks and alternatives involved in hemodialysis. She voiced understanding and gave consent to proceed. Vascular planned to place dialysis catheter now. HD orders placed and talked to the provider education specialist. Hemodialysis: 06/13. 2. FEN: Hyperkalemia, meds ordered, HD today, monitor. Metabolic acidosis, improved, monitor. Monitor lytes and volume status. 3. Acute hypoxic respiratory failure: /2 COVID-19 PNA. Intubated 06/12. Followed by Pulmonary. 4. Bilateral COVID-19 PNA: Followed by ID. 5. S/p Cardiac arrest, 06/13: Monitor. 6. Shock: On Levophed. 7. A.fib with RVR: On Amiodarone. 8. DM with hyperglycemia: Accu-Check, sliding scale coverage, ADA diet. - Subjective: Patient was seen and examined from bedside. In ICU. RNa t the bedside. Events noted. Received a call from @ 1.19 about hyperkalemia. - General Appearance General appearance: well-developed, appears stated age, resp distress noted, intubated, on vent HEENT: ATNC Neck: Trachea midline Respiratory: MV sounds Heart: regular, S1S2, no murmurs Gastrointestinal: soft, bowel sounds heard Integumentary: no rash, warm and dry Ext: no edema Neurologic: sedated Subjective Date of service: 06/13/20 Principal diagnosis: COVID-19 PNA, AF RVR Objective - Vital Signs Vital signs: Vital Signs - 12hr 06/12/20 06/12/20 06/12/20 21:16 21:30 21:45 Temperature Pulse Rate 95 H 95 H 95 H Respiratory 29 H 33 H 22 Rate Blood Pressure 83/58 94/58 102/58 O2 Sat by Pulse 100 98 100 Oximetry 06/12/20 06/12/20 06/12/20 22:00 22:15 22:30 Temperature Pulse Rate 97 H 95 H 96 H Respiratory 29 H 33 H 22 Rate Blood Pressure 100/49 83/55 87/55 O2 Sat by Pulse 96 100 96 Oximetry 06/12/20 06/12/20 06/12/20 22:45 22:48 23:00 Temperature Pulse Rate 96 H 95 H 95 H Respiratory 21 28 H 20 Rate Blood Pressure 91/58 91/58 91/62 O2 Sat by Pulse 100 97 100 Oximetry 06/12/20 06/12/20 06/12/20 23:15 23:30 23:45 Temperature Pulse Rate 95 H 94 H 94 H Respiratory 29 H 32 H 19 Rate Blood Pressure 94/64 94/56 86/56 O2 Sat by Pulse 99 100 100 Oximetry 06/13/20 06/13/20 06/13/20 00:00 00:15 00:22 Temperature 100.8 F H Pulse Rate 95 H 93 H 94 H Respiratory 30 H 26 H Rate Blood Pressure 86/56 87/58 O2 Sat by Pulse 98 100 Oximetry 06/13/20 06/13/20 06/13/20 00:23 00:30 00:45 Temperature Pulse Rate 93 H 91 H 93 H Respiratory 17 25 H 29 H Rate Blood Pressure 87/58 96/53 82/55 O2 Sat by Pulse 96 96 100 Oximetry 06/13/20 06/13/20 06/13/20 01:00 01:15 01:30 Temperature Pulse Rate 92 H 92 H 92 H Respiratory 32 H 31 H 33 H Rate Blood Pressure 86/56 93/55 86/53 O2 Sat by Pulse 99 98 99 Oximetry 06/13/20 06/13/20 06/13/20 01:45 02:00 02:15 Temperature Pulse Rate 93 H 94 H 95 H Respiratory 29 H 33 H 30 H Rate Blood Pressure 85/55 101/65 103/64 O2 Sat by Pulse 99 99 100 Oximetry 06/13/20 06/13/20 06/13/20 02:30 02:45 03:00 Temperature Pulse Rate 93 H 94 H 92 H Respiratory 19 31 H 24 Rate Blood Pressure 101/59 95/56 93/62 O2 Sat by Pulse 97 97 98 Oximetry 06/13/20 06/13/20 06/13/20 03:15 03:30 03:45 Temperature Pulse Rate 93 H 92 H 92 H Respiratory 31 H 28 H 25 H Rate Blood Pressure 100/60 100/55 94/55 O2 Sat by Pulse 96 96 96 Oximetry 06/13/20 06/13/20 06/13/20 04:00 04:15 04:30 Temperature 100.8 F H Pulse Rate 91 H 92 H 91 H Respiratory 34 H 34 H 18 Rate Blood Pressure 94/58 101/50 96/57 O2 Sat by Pulse 97 98 99 Oximetry 06/13/20 06/13/20 06/13/20 04:45 04:54 05:00 Temperature Pulse Rate 89 87 88 Respiratory 21 22 Rate Blood Pressure 83/53 83/53 89/49 O2 Sat by Pulse 97 94 100 Oximetry 06/13/20 06/13/20 06/13/20 05:16 05:30 05:45 Temperature Pulse Rate 139 H 113 H 117 H Respiratory 51 H 34 H Rate Blood Pressure 64/12 83/50 O2 Sat by Pulse 100 94 94 Oximetry 06/13/20 06/13/20 06/13/20 06:00 06:15 08:00 Temperature 98.8 F Pulse Rate 115 H 110 H Respiratory 39 H 39 H Rate Blood Pressure 81/47 87/52 O2 Sat by Pulse 95 96 Oximetry 06/13/20 08:25 Temperature Pulse Rate 101 H Respiratory Rate Blood Pressure 113/73 O2 Sat by Pulse 96 Oximetry - Lab 06/13/20 05:06 06/13/20 05:06 Most recent lab results ABG pH 7.091 pH Units (7.350-7.450) L* 06/13/20 03:30 ABG pCO2 81.5 mm Hg 06/13/20 03:30 ABG pO2 172.6 mm Hg (80.0-90.0) H 06/13/20 03:30 ABG HCO3 24.2 mmol/L (20.0-26.0) 06/13/20 03:30 ABG O2 Saturation 98.6 % (95.0-99.0) 06/13/20 03:30 Calcium 7.7 mg/dL (8.4-10.2) L D 06/13/20 05:06 Magnesium 2.20 mg/dL (1.7-2.3) 05/31/20 15:23 Urine Creatinine 161.6 mg/dL (0.1-20.0) H 06/01/20 Unknown Urine Sodium 47 mmol/L 06/01/20 Unknown Medications & Allergies - Medications Allergies/Adverse Reactions: Allergies lisinopril Allergy (Verified 05/31/20 13:03) Angioedema Penicillins Allergy (Verified 05/31/20 13:03) Hives Home Medications: Home Medications Medication Instructions Recorded Confirmed Last Taken Type Acetaminophen [Acetaminophen TAB] 650 mg PO Q4H PRN #30 tablet 02/15/17 Unknown Rx AtorvaSTATin [Lipitor] 20 mg PO QHS tablet 02/15/17 Unknown Rx Cipro/Dexameth 0.3/0.1% [Ciprodex 4 drops AU BID bottle 02/15/17 Unknown Rx OTIC] Detemir (Nf) [Levemir (Nf)] 100 units SUB-Q QHS units 02/15/17 Unknown Rx Dextrose 50% in Water [D50W (25GM) 50 ml IV PRN PRN #30 syringe 02/15/17 Unknown Rx Syringe] Enoxaparin 40 mg SUB-Q QDAY syringe 02/15/17 Unknown Rx Lipase/Protease/Amylase [Pancreaze 1 each FEEDTUBE PRN PRN #30 capsule 02/15/17 Unknown Rx 10,500 Unit] Metoprolol [Lopressor TAB] 25 mg PO BID tablet 02/15/17 Unknown Rx Metoprolol [Lopressor TAB] 25 mg PO BID #60 tablet 02/15/17 Unknown Rx Ondansetron [Zofran INJ] 4 mg IV Q8H PRN #30 vial 02/15/17 Unknown Rx Prednisone [predniSONE 5 mg (6-Day 5 mg PO .TAPER #1 tab.ds.pk 02/15/17 Unknown Rx Pack, 21 Tabs)] Simple Syrup 15 ml FEEDTUBE PRN PRN #30 02/15/17 Unknown Rx oral.liqd Simple Syrup 30 ml FEEDTUBE PRN PRN #30 02/15/17 Unknown Rx oral.liqd Sodium Bicarbonate 325 mg FEEDTUBE PRN PRN #30 tablet 02/15/17 Unknown Rx amLODIPine 10 mg PO DAILY tablet 02/15/17 Unknown Rx amLODIPine [Norvasc] 10 mg PO DAILY #30 tab 02/15/17 Unknown Rx bisacodyL [Dulcolax suppos] 10 mg NM QDAY PRN #30 supp.rect 02/15/17 Unknown Rx chlorproMAZINE [Thorazine] 10 mg PO Q6H PRN #30 tablet 02/15/17 Unknown Rx dexAMETHasone [Decadron] 6 mg IV Q6HR vial 02/15/17 Unknown Rx hydrALAZINE [Apresoline INJ] 10 mg IV Q6HR PRN #30 vial 02/15/17 Unknown Rx oxyCODONE /ACETAMINOPHEN [Percocet 1 tab PO Q4H PRN #30 tablet 02/15/17 Unknown Rx 5/325 mg] oxyCODONE /ACETAMINOPHEN [Percocet 1 tab PO Q4HR #30 tab 02/15/17 Unknown Rx 5/325] tiZANidine [Zanaflex 4mg TAB] 4 mg PO Q8H PRN #30 tablet 02/15/17 Unknown Rx Permethrin 5% [Acticin 5% CREAM] 1 applicatio TP ONCE #1 tube 06/11/17 Unknown Rx Azithromycin [Zithromax Z-BENJIE] 250 mg PO DAILY 1 Days tab 11/23/18 Unknown Rx Ondansetron [Zofran Odt] 4 mg PO Q8HR PRN #14 tab.rapdis 11/23/18 Unknown Rx traMADoL [Ultram 50 MG tab] 50 mg PO Q4HR PRN #14 tablet 11/23/18 Unknown Rx Active Medications: Generic Name Dose Route Start Last Admin Trade Name Freq PRN Reason Stop Dose Admin Acetaminophen 650 mg 05/31/20 15:49 Tylenol PO Q6H PRN Pain MILD(1-3)/Fever >100.5/LEBRON Albuterol 2.5 mg 05/31/20 15:49 Proventil IH Q3HRT PRN Shortness Of Breath Atorvastatin Calcium 20 mg 05/31/20 22:00 06/12/20 21:03 Lipitor PO Not Given QHS CHERI Bisacodyl 10 mg 05/31/20 15:57 Dulcolax NM QDAY PRN Constipation unrelieved by MOM Chlorpromazine HCl 10 mg 05/31/20 15:57 Thorazine PO Q6H PRN Hiccups Dextrose 50 ml 05/31/20 15:59 06/07/20 10:48 D50w (25gm) Syringe IV 20 ml Q30MIN PRN Administration Hypoglycemia Protocol Enoxaparin Sodium 100 mg 06/10/20 10:00 06/12/20 09:25 Enoxaparin SUB-Q 100 mg Q24HR CHERI Administration Hydrophilic Ointment 1 applic 06/12/20 12:11 Vaseline Lip Therapy TP Q2HR PRN Dry Lips Amiodarone HCl 900 mg/ 500 mls @ 33.333 mls/hr 06/11/20 11:30 06/12/20 14:16 Dextrose IV 0.5 mg/min DIRECT CHERI 16.667 mls/hr Administration Protocol 1 MG/MIN Propofol 1,000 mg in 100 mls @ 3.39 mls/hr 06/12/20 13:00 06/13/20 05:14 Diprivan 10 Mg/Ml IV 0 mcg/kg/min TITR CHERI 0 mls/hr Titration Protocol 5 MCG/KG/MIN Norepinephrine 4 mg in 250 mls @ 7.5 mls/hr 06/12/20 14:00 06/13/20 08:12 Levophed Drip 4 Mg/Ns 250 Ml IV 26 mcg/min TITR CHERI 97.5 mls/hr Administration Protocol 2 MCG/MIN Cefepime HCl 1 gm in 100 mls @ 200 mls/hr 06/12/20 16:00 06/12/20 21:06 Cefepime/Ns 1 Gm/100 Ml IV 200 mls/hr Q12HR CHERI Administration Sodium Chloride 1,000 mls @ 125 mls/hr 06/13/20 06:15 06/13/20 06:40 Nacl 0.9% 1000 Ml IV 125 mls/hr DIRECT CHERI Administration Calcium Gluconate 2,000 mg/ 120 mls @ 660 mls/hr 06/13/20 09:15 Sodium Chloride IV 06/13/20 09:25 ONCE ONE Sodium Bicarbonate 150 meq/ 1,150 mls @ 75 mls/hr 06/13/20 09:00 Dextrose IV DIRECT CHERI Insulin Glargine 20 units 06/12/20 22:00 06/12/20 21:03 Lantus SUB-Q Not Given QHS [facility] Insulin Human Lispro 0 unit 06/11/20 12:00 06/13/20 05:54 Humalog SUB-Q 6 unit Q6HR CHERI Administration Protocol Insulin Human Lispro 10 unit 06/12/20 16:30 06/12/20 17:31 Humalog SUB-Q 10 unit AC CHERI Administration Methylprednisolone Sodium Succinate 40 mg 06/11/20 14:00 06/13/20 05:51 Solu-Medrol IV 40 mg Q8HR CHERI Administration Metoprolol Tartrate 5 mg 06/09/20 14:52 06/11/20 05:13 Metoprolol IV 5 mg Q6HR PRN Administration Tachyarrhythmias Multi-Ingred Cream/Lotion/Oil/Oint 1 applic 06/12/20 12:11 Artificial Tears Ophth Oint OU Q4HR PRN Dry Eye(s) Naloxone HCl 0.1 mg 05/31/20 15:49 Naloxone IV Q2MIN PRN Res Rate </= 8 or 02 SAT < 92% Ondansetron HCl 4 mg 05/31/20 15:57 Zofran IV Q8H PRN N/V unrelieved by Anna Oxycodone/Acetaminophen 1 tab 05/31/20 15:49 06/03/20 00:57 Percocet 5/325 PO 1 tab Q6H PRN Administration Pain, Moderate (4-6) Sodium Chloride 10 ml 05/31/20 22:00 06/12/20 21:06 Sodium Chloride Flush Syringe 10 Ml IV 10 ml BID CHERI Administration Sodium Chloride 10 ml 05/31/20 15:49 Sodium Chloride Flush Syringe 10 Ml IV PRN PRN LINE FLUSH Tizanidine HCl 4 mg 05/31/20 15:57 06/08/20 21:47 Zanaflex PO 4 mg Q8H PRN Administration Muscle Spasm
[2020-06-13] MEDS ORDERED: CALCIUM GLUCONATE 2,000 MG in SODIUM CHLORIDE 0.9% 100 ML IV ONE (09:15)
[2020-06-13] MEDS: ENOXAPARIN 100 MG/1 ML INJ SUB-Q SCH (09:23)
[2020-06-13] MEDS: SODIUM BICARBONATE 150 MEQ in DEXTROSE 5% IN WATER 1,000 ML IV SCH (09:25)
[2020-06-13] MEDS ORDERED: SODIUM CHLORIDE 0.9% 100 ML IV PRN (09:39)
[2020-06-13] MEDS ORDERED: FUROSEMIDE 40 MG/4 ML INJ IV ONE (10:00)
[2020-06-13] MEDS ORDERED: CEFEPIME/NS 2 GM/100 ML 2 GM/100 ML BAG IV SCH (10:00)
[2020-06-13] MEDS ORDERED: LIDOCAINE (1%) 10 MG/1 ML VIAL 20 ML MDV ONE (10:00)
--- NOTE | 2020-06-13 10:08 | XRay Report ---
ABDOMEN 1 VIEW 06/13/2020 9:01 AM INDICATION / CLINICAL INFORMATION: OGT placement. COMPARISON: 06/12/20 FINDINGS: TUBES / LINES: Tip of esophagogastric tube again projects over the gastroesophageal junction. BOWEL GAS PATTERN: No significant abnormality. FREE AIR / EXTRALUMINAL GAS: Subcutaneous soft tissue emphysema and pneumomediastinum appear unchange d. Small amount gas appears to propagated into the upper abdomen, unchanged. ADDITIONAL FINDINGS: No significant additional findings. IMPRESSION: 1. Esophagogastric tube at the gastroesophageal junction. Tube should be advanced 5-10 cm for optimal positioning. Signer Name: Bishop Barahona MD Signed: 06/13/2020 10:04 AM Workstation Name: [id number]
--- NOTE | 2020-06-13 10:21 | Operative Report ---
Operative Report Operative Report: Exam: Ultrasound-guided placement of Vas-Cath Clinical indication: Patient with acute renal failure and COVID-19 Date: 06/13/2020 Procedure: Following an explanation of the risk, benefits and alternatives; written informed consent was obtained from the patient's . Patient is intubated at time of procedure. Sterile precautions were followed. Initial ultrasound evaluation of the patient's left groin demonstrated a patent common femoral vein. The patient's left groin was prepped and draped in the usual sterile fashion. 1% lidocaine was used for anesthesia. Under ultrasound guidance, the left common femoral vein was cannulated using a 7 cm 18-gauge needle. A 0.035 guidewire was advanced centrally easily. The needle was removed and following serial dilation over the guidewire, a 30 cm dialysis catheter was advanced over the guidewire centrally. The guidewire was removed. Nonpulsatile blood return from all 3 ports. The ports were flushed and locked with sterile saline. The catheter was securely fastened to the skin surface using 2-0 nylon and a sterile dressing applied. The patient tolerated the procedure well. There were no immediate postprocedure complications. Continuous cardiopulmonary monitoring was utilized. There was no sedation given given the patient's obtunded status. Impression: Ultrasound-guided placement of 30 cm dialysis catheter via the left common femoral vein.
--- NOTE | 2020-06-13 11:25 | Progress Note ---
Assessment and Plan S/p CODE BLUE this AM, ACLS protocol initiated and ROSC obtained. Currently in NSR HR 90s, amio gtt infusing. On levophed gtt. K+ is 8.8 and Cr is 6.4. Pt pending vascath placement today for initiation of HD per nephrology. Cont supportive measures. Overall poor prognosis. The patient has been seen in conjunction with Dr. Vega who agrees with the assessment and plan of care. - Patient Problems (1) Acute respiratory failure with hypoxia Current Visit: Yes Status: Acute (2) Pneumonia due to COVID-19 virus Current Visit: Yes Status: Acute (3) Paroxysmal atrial fibrillation with RVR Current Visit: Yes Status: Acute (4) Elevated d-dimer Current Visit: Yes Status: Acute (5) Acute kidney injury superimposed on CKD Current Visit: Yes Status: Acute (6) Hyperkalemia Current Visit: Yes Status: Acute (7) HTN (hypertension) Current Visit: Yes Status: Chronic Qualifiers: Hypertension type: essential hypertension Qualified Code(s): I10 - Essential (primary) hypertension (8) Diabetes Current Visit: Yes Status: Chronic Qualifiers: Diabetes mellitus type: type 2 Diabetes mellitus [facility] insulin use: with marine oil terminal superintendent use Diabetes mellitus complication status: with hyperglycemia Qualified Code(s): E11.65 - Type 2 diabetes mellitus with hyperglycemia; Z79.4 - intermediate accountant (current) use of insulin Subjective Date of service: 06/13/20 Principal diagnosis: COVID-19 PNA, AF RVR Interval history: pt remains intubated, s/p CODE BLUE this AM, ACLS protocol initiated and ROSC obtained. currently in NSR HR 90s, amio gtt infusing. Objective Last Vital Signs Temp 98.8 F 06/13/20 10:30 Pulse 104 H 06/13/20 11:15 Resp 37 H 06/13/20 10:30 BP 123/81 06/13/20 11:15 Pulse Ox 96 06/13/20 10:30 - Physical Examination General: Other (inubated, unresponsive ) Neck: Positive: neck supple Cardiac: Positive: Reg Rate and Rhythm, S1/S2 Lungs: Positive: Decreased Breath Sounds, Oxygen, Ventilated Respirations Neuro: Positive: Other (intubated, unresponsive) Abdomen: Negative: Tender Skin: Negative: Rash Musculoskeletal: No Pain Extremities: Absent: edema - Labs and Meds Cardiac Enzymes 06/13/20 Range/Units 05:06 AST 35 (5-40) units/L CBC 06/13/20 Range/Units 05:06 WBC 30.3 H (4.5-11.0) K/mm3 RBC 4.10 (3.65-5.03) M/mm3 Hgb 12.0 D (11.8-15.2) gm/dl Hct 38.0 D (35.5-45.6) % Plt Count 314 (140-440) K/mm3 Lymph # 0.7 L (1.2-5.4) K/mm3 [place] # 1.6 H (0.0-0.8) K/mm3 Eos # 0.0 (0.0-0.4) K/mm3 Baso # 0.1 (0.0-0.1) K/mm3 Comprehensive Metabolic Panel 06/13/20 Range/Units 05:06 Sodium 148 H (137-145) mmol/L Potassium 8.8 H* D (3.6-5.0) mmol/L Chloride 109.5 H (98-107) mmol/L Carbon Dioxide 24 (22-30) mmol/L BUN 118 H (9-20) mg/dL Creatinine 6.4 H D (0.8-1.3) mg/dL Glucose 272 H (75-100) mg/dL Calcium 7.7 L D (8.4-10.2) mg/dL AST 35 (5-40) units/L ALT 37 (7-56) units/L Alkaline Phosphatase 115 (35-129) units/L Total Protein 6.7 (6.3-8.2) g/dL Albumin 2.5 L (3.9-5) g/dL - Imaging and Cardiology EKG: report reviewed, image reviewed Echo: pending - Telemetry EKG Rhythm: Sinus Rhythm
--- NOTE | 2020-06-13 12:42 | Progress Note ---
Assessment and Plan 54 y/o male with acute respiratory failure, secondary to COVID 19 pneumonia and possibly acute renal failure, now intubated with worsening renal failure 1. Overall prognosis is every guarded given amount of downtime, prior hypoxemia, and current neurologic exam. Patient could very well be anoxic. Once more stable will send for Head CT. 2. Continue IV steroids. 3. Hold on proning as of now. 4. HD per renal, hopeful that he is only encephalopathic from uremia, but given current exam, doubtful. 5. Rate is better, appears to be in sinus. Continue Amio for now. When I spoke to the ED physican on the phone during the code this am, patient was being shocked. Assume it was was some form of ventricular arrhythmia. Did get 300 of amio and 100 of lidocaine during the code. 6. Very very poor prognosis, patient aware of this. Family knows of need for HD and code. Will call and speak with them again this am cct 31 minutes Subjective Date of service: 06/13/20 Principal diagnosis: COVID-19 PNA, AF RVR Interval history: Patient had cardiac arrest this am. Coded for about 15 minutes. Had ROSC at 0529. K was found to be 8.8 and worsening renal function. now has vascath in place and getting HD. Unfortunately, patient has no cough, no gag. Not on sedation and only responsive to pain. Objective Vital Signs - 12hr 06/13/20 06/13/20 06/13/20 00:45 01:00 01:15 Temperature Pulse Rate 93 H 92 H 92 H Respiratory 29 H 32 H 31 H Rate Blood Pressure 82/55 86/56 93/55 O2 Sat by Pulse 100 99 98 Oximetry O2 Sat by Pulse Oximetry [ Posterior Bilateral Throughout] 06/13/20 06/13/20 06/13/20 01:30 01:45 02:00 Temperature Pulse Rate 92 H 93 H 94 H Respiratory 33 H 29 H 33 H Rate Blood Pressure 86/53 85/55 101/65 O2 Sat by Pulse 99 99 99 Oximetry O2 Sat by Pulse Oximetry [ Posterior Bilateral Throughout] 06/13/20 06/13/20 06/13/20 02:15 02:30 02:45 Temperature Pulse Rate 95 H 93 H 94 H Respiratory 30 H 19 31 H Rate Blood Pressure 103/64 101/59 95/56 O2 Sat by Pulse 100 97 97 Oximetry O2 Sat by Pulse Oximetry [ Posterior Bilateral Throughout] 06/13/20 06/13/20 06/13/20 03:00 03:15 03:30 Temperature Pulse Rate 92 H 93 H 92 H Respiratory 24 31 H 28 H Rate Blood Pressure 93/62 100/60 100/55 O2 Sat by Pulse 98 96 96 Oximetry O2 Sat by Pulse Oximetry [ Posterior Bilateral Throughout] 06/13/20 06/13/20 06/13/20 03:45 04:00 04:15 Temperature 100.8 F H Pulse Rate 92 H 91 H 92 H Respiratory 25 H 34 H 34 H Rate Blood Pressure 94/55 94/58 101/50 O2 Sat by Pulse 96 97 98 Oximetry O2 Sat by Pulse Oximetry [ Posterior Bilateral Throughout] 06/13/20 06/13/20 06/13/20 04:30 04:45 04:54 Temperature Pulse Rate 91 H 89 87 Respiratory 18 21 Rate Blood Pressure 96/57 83/53 83/53 O2 Sat by Pulse 99 97 94 Oximetry O2 Sat by Pulse Oximetry [ Posterior Bilateral Throughout] 06/13/20 06/13/20 06/13/20 05:00 05:16 05:30 Temperature Pulse Rate 88 139 H 113 H Respiratory 22 51 H Rate Blood Pressure 89/49 64/12 O2 Sat by Pulse 100 100 94 Oximetry O2 Sat by Pulse Oximetry [ Posterior Bilateral Throughout] 06/13/20 06/13/20 06/13/20 05:45 06:00 06:15 Temperature Pulse Rate 117 H 115 H 110 H Respiratory 34 H 39 H 39 H Rate Blood Pressure 83/50 81/47 87/52 O2 Sat by Pulse 94 95 96 Oximetry O2 Sat by Pulse Oximetry [ Posterior Bilateral Throughout] 06/13/20 06/13/20 06/13/20 06:30 06:45 07:00 Temperature Pulse Rate 109 H 104 H 102 H Respiratory 24 31 H 30 H Rate Blood Pressure 101/62 108/65 118/67 O2 Sat by Pulse 97 98 98 Oximetry O2 Sat by Pulse Oximetry [ Posterior Bilateral Throughout] 06/13/20 06/13/20 06/13/20 07:15 07:30 07:45 Temperature Pulse Rate 100 H 98 H 102 H Respiratory 30 H 30 H 33 H Rate Blood Pressure 118/75 123/71 127/76 O2 Sat by Pulse 97 97 99 Oximetry O2 Sat by Pulse Oximetry [ Posterior Bilateral Throughout] 06/13/20 06/13/20 06/13/20 08:00 08:15 08:25 Temperature 98.8 F Pulse Rate 106 H 101 H 101 H Respiratory 37 H 36 H Rate Blood Pressure 131/73 118/68 113/73 O2 Sat by Pulse 96 97 96 Oximetry O2 Sat by Pulse Oximetry [ Posterior Bilateral Throughout] 06/13/20 06/13/20 06/13/20 08:30 08:45 09:00 Temperature Pulse Rate 100 H 99 H 99 H Respiratory 36 H 36 H 34 H Rate Blood Pressure 119/70 122/73 130/76 O2 Sat by Pulse 96 98 98 Oximetry O2 Sat by Pulse Oximetry [ Posterior Bilateral Throughout] 06/13/20 06/13/20 06/13/20 09:15 09:30 09:45 Temperature Pulse Rate 100 H 99 H 98 H Respiratory 34 H 34 H 33 H Rate Blood Pressure 129/75 131/78 136/78 O2 Sat by Pulse 98 98 99 Oximetry O2 Sat by Pulse Oximetry [ Posterior Bilateral Throughout] 06/13/20 06/13/20 06/13/20 10:00 10:15 10:30 Temperature 98.8 F Pulse Rate 101 H 101 H 100 H Respiratory 35 H 34 H 39 H Rate Blood Pressure 138/83 135/80 136/79 O2 Sat by Pulse 99 97 96 Oximetry O2 Sat by Pulse 96 Oximetry [ Posterior Bilateral Throughout] 06/13/20 06/13/20 06/13/20 10:37 10:45 11:00 Temperature Pulse Rate 99 H 99 H 100 H Respiratory 35 H 35 H Rate Blood Pressure 134/76 133/81 137/80 O2 Sat by Pulse 96 96 Oximetry O2 Sat by Pulse Oximetry [ Posterior Bilateral Throughout] 06/13/20 06/13/20 06/13/20 11:15 11:30 11:45 Temperature Pulse Rate 102 H 102 H 103 H Respiratory 32 H 32 H 32 H Rate Blood Pressure 123/81 119/77 109/72 O2 Sat by Pulse 97 96 92 Oximetry O2 Sat by Pulse Oximetry [ Posterior Bilateral Throughout] 06/13/20 06/13/20 06/13/20 12:00 12:15 12:30 Temperature Pulse Rate 103 H 98 H 104 H Respiratory Rate Blood Pressure 105/75 112/69 118/80 O2 Sat by Pulse Oximetry O2 Sat by Pulse Oximetry [ Posterior Bilateral Throughout] Constitutional: no acute distress, lethargic, other (Morbidly obese) Eyes: non-icteric ENT: oropharynx moist, other (Crowded oropharynx) Neck: supple Ascultation: Bilateral: diminished breath sounds Cardiovascular: regular rate and rhythm Gastrointestinal: normoactive bowel sounds, non-distended, other (Obese) Integumentary: normal Extremities: no cyanosis Neurologic: non-focal exam CBC and BMP: 06/13/20 05:06 06/13/20 05:06 ABG, PT/INR, D-dimer: ABG ABG pH 7.091 pH Units (7.350-7.450) L* 06/13/20 03:30 POC ABG pCO2 88.1 mmHg (32.0-48.0) H 06/12/20 13:17 ABG pCO2 81.5 mm Hg 06/13/20 03:30 POC ABG pO2 98.3 mmHg (83-108) 06/12/20 13:17 ABG pO2 172.6 mm Hg (80.0-90.0) H 06/13/20 03:30 POC ABG HCO3 24.2 06/12/20 13:17 ABG O2 Saturation 98.6 % (95.0-99.0) 06/13/20 03:30 PT/INR, D-dimer PT 11.5 Sec. (12.2-14.9) L 05/31/20 15:23 INR 0.83 (0.87-1.13) L 05/31/20 15:23 D-Dimer > 79459 ng/mlDDU (0-234) H 06/09/20 09:21 Abnormal lab findings: Abnormal Labs 05/31/20 05/31/20 05/31/20 15:23 15:23 15:23 WBC RBC MCHC RDW Lymph % (Auto) Lymph # [place] # Seg Neutrophils % Seg Neuts % (Manual) Lymphocytes % (Manual) Seg Neutrophils # Seg Neutrophils # Man Lymphocytes # (Manual) Monocytes # (Manual) PT INR D-Dimer ABG pH POC ABG pCO2 POC ABG pO2 ABG pO2 ABG Base Excess ABG Oxyhemoglobin Carboxyhemoglobin Sodium Potassium Chloride Carbon Dioxide BUN Creatinine Glucose 280 H POC Glucose Hemoglobin A1c Calcium Ferritin 583.4 H Alkaline Phosphatase Lactate Dehydrogenase 392 H Total Creatine Kinase 325 H C-Reactive Protein 14.30 H Albumin Vrcxq-4-Udzeuavkm Xzfkk-6-Xmenbpbsq Beta Globulins PEP Interpretation Urine Creatinine Complement C3 Complement C4 Coronavirus (PCR) 05/31/20 05/31/20 05/31/20 15:23 15:23 15:23 WBC RBC MCHC RDW 15.7 H Lymph % (Auto) 12.9 L Lymph # 1.0 L [place] # Seg Neutrophils % 81.7 H Seg Neuts % (Manual) Lymphocytes % (Manual) Seg Neutrophils # Seg Neutrophils # Man Lymphocytes # (Manual) Monocytes # (Manual) PT 11.5 L INR 0.83 L D-Dimer ABG pH POC ABG pCO2 POC ABG pO2 ABG pO2 ABG Base Excess ABG Oxyhemoglobin Carboxyhemoglobin Sodium 134 L Potassium Chloride 97.2 L Carbon Dioxide BUN 28 H Creatinine 3.0 H Glucose 279 H POC Glucose Hemoglobin A1c Calcium Ferritin Alkaline Phosphatase Lactate Dehydrogenase Total Creatine Kinase C-Reactive Protein Albumin 3.3 L Ppsnd-0-Orgiqrguu Verdl-3-Uqxbpwaai Beta Globulins PEP Interpretation Urine Creatinine Complement C3 Complement C4 Coronavirus (PCR) 05/31/20 05/31/20 05/31/20 16:47 16:49 16:49 WBC RBC MCHC RDW Lymph % (Auto) Lymph # [place] # Seg Neutrophils % Seg Neuts % (Manual) Lymphocytes % (Manual) Seg Neutrophils # Seg Neutrophils # Man Lymphocytes # (Manual) Monocytes # (Manual) PT INR D-Dimer 738.85 H ABG pH POC ABG pCO2 POC ABG pO2 ABG pO2 ABG Base Excess ABG Oxyhemoglobin Carboxyhemoglobin Sodium Potassium Chloride Carbon Dioxide BUN Creatinine Glucose 258 H POC Glucose 239 H Hemoglobin A1c Calcium Ferritin Alkaline Phosphatase Lactate Dehydrogenase 409 H Total Creatine Kinase C-Reactive Protein 14.00 H Albumin Mkvwf-3-Epmmmwtdi Liicy-1-Flrtvbzyy Beta Globulins PEP Interpretation Urine Creatinine Complement C3 Complement C4 Coronavirus (PCR) 05/31/20 05/31/20 06/01/20 16:49 16:49 10:15 WBC RBC MCHC RDW Lymph % (Auto) Lymph # [place] # Seg Neutrophils % Seg Neuts % (Manual) Lymphocytes % (Manual) Seg Neutrophils # Seg Neutrophils # Man Lymphocytes # (Manual) Monocytes # (Manual) PT INR D-Dimer ABG pH POC ABG pCO2 POC ABG pO2 ABG pO2 ABG Base Excess ABG Oxyhemoglobin Carboxyhemoglobin Sodium Potassium Chloride Carbon Dioxide BUN Creatinine Glucose POC Glucose 277 H Hemoglobin A1c 8.5 H Calcium Ferritin 599.0 H Alkaline Phosphatase Lactate Dehydrogenase Total Creatine Kinase C-Reactive Protein Albumin Mkewr-3-Teqiesoan Cxltt-7-Nxwuvnmhw Beta Globulins PEP Interpretation Urine Creatinine Complement C3 Complement C4 Coronavirus (PCR) 06/01/20 06/01/20 06/01/20 13:41 13:41 16:10 WBC RBC MCHC RDW 15.3 H Lymph % (Auto) 8.4 L Lymph # 0.9 L [place] # Seg Neutrophils % 86.9 H Seg Neuts % (Manual) Lymphocytes % (Manual) Seg Neutrophils # 9.3 H Seg Neutrophils # Man Lymphocytes # (Manual) Monocytes # (Manual) PT INR D-Dimer ABG pH POC ABG pCO2 POC ABG pO2 ABG pO2 ABG Base Excess ABG Oxyhemoglobin Carboxyhemoglobin Sodium 136 L Potassium 5.5 H Chloride Carbon Dioxide 20 L BUN 42 H Creatinine 3.5 H Glucose 278 H POC Glucose 372 H Hemoglobin A1c Calcium Ferritin Alkaline Phosphatase Lactate Dehydrogenase Total Creatine Kinase C-Reactive Protein Albumin Lgyuk-1-Wrkufxffg Gnrfb-0-Rvsueljtt Beta Globulins PEP Interpretation Urine Creatinine Complement C3 Complement C4 Coronavirus (PCR) 06/01/20 06/01/20 06/01/20 23:12 Unknown Unknown WBC RBC MCHC RDW Lymph % (Auto) Lymph # [place] # Seg Neutrophils % Seg Neuts % (Manual) Lymphocytes % (Manual) Seg Neutrophils # Seg Neutrophils # Man Lymphocytes # (Manual) Monocytes # (Manual) PT INR D-Dimer ABG pH POC ABG pCO2 POC ABG pO2 ABG pO2 ABG Base Excess ABG Oxyhemoglobin Carboxyhemoglobin Sodium Potassium Chloride Carbon Dioxide BUN Creatinine Glucose POC Glucose 398 H Hemoglobin A1c Calcium Ferritin Alkaline Phosphatase Lactate Dehydrogenase Total Creatine Kinase C-Reactive Protein Albumin Uwjlq-1-Mukpegadl Wclta-6-Sjhggcrcy Beta Globulins PEP Interpretation Urine Creatinine 161.6 H Complement C3 Complement C4 Coronavirus (PCR) Positive A 06/02/20 06/02/20 06/02/20 04:55 04:55 05:33 WBC 14.7 H RBC MCHC RDW 15.4 H Lymph % (Auto) 7.1 L Lymph # 1.1 L [place] # Seg Neutrophils % 89.3 H Seg Neuts % (Manual) Lymphocytes % (Manual) Seg Neutrophils # 13.2 H Seg Neutrophils # Man Lymphocytes # (Manual) Monocytes # (Manual) PT INR D-Dimer ABG pH POC ABG pCO2 POC ABG pO2 ABG pO2 ABG Base Excess ABG Oxyhemoglobin Carboxyhemoglobin Sodium 136 L Potassium Chloride 97.2 L Carbon Dioxide 21 L BUN 47 H Creatinine 3.5 H Glucose 244 H POC Glucose 262 H Hemoglobin A1c Calcium Ferritin Alkaline Phosphatase Lactate Dehydrogenase Total Creatine Kinase C-Reactive Protein Albumin 3.2 L Mlwbl-2-Yaevphrzs Dyjja-5-Bspdpztsq Beta Globulins PEP Interpretation Urine Creatinine Complement C3 Complement C4 Coronavirus (PCR) 06/02/20 06/02/20 06/02/20 10:55 16:49 22:15 WBC RBC MCHC RDW Lymph % (Auto) Lymph # [place] # Seg Neutrophils % Seg Neuts % (Manual) Lymphocytes % (Manual) Seg Neutrophils # Seg Neutrophils # Man Lymphocytes # (Manual) Monocytes # (Manual) PT INR D-Dimer ABG pH POC ABG pCO2 POC ABG pO2 ABG pO2 ABG Base Excess ABG Oxyhemoglobin Carboxyhemoglobin Sodium Potassium Chloride Carbon Dioxide BUN Creatinine Glucose POC Glucose 160 H 214 H 292 H Hemoglobin A1c Calcium Ferritin Alkaline Phosphatase Lactate Dehydrogenase Total Creatine Kinase C-Reactive Protein Albumin Skwpk-9-Inbnnlirj Xbskz-3-Hpvhrdvzc Beta Globulins PEP Interpretation Urine Creatinine Complement C3 Complement C4 Coronavirus (PCR) 06/02/20 06/03/20 06/03/20 23:47 05:18 05:18 WBC 18.4 H RBC MCHC RDW 15.3 H Lymph % (Auto) Lymph # [place] # Seg Neutrophils % Seg Neuts % (Manual) 91.0 H Lymphocytes % (Manual) 8.0 L Seg Neutrophils # Seg Neutrophils # Man 16.7 H Lymphocytes # (Manual) Monocytes # (Manual) PT INR D-Dimer ABG pH POC ABG pCO2 POC ABG pO2 ABG pO2 ABG Base Excess ABG Oxyhemoglobin Carboxyhemoglobin Sodium Potassium Chloride Carbon Dioxide 20 L BUN 50 H Creatinine 3.1 H Glucose 248 H POC Glucose 292 H Hemoglobin A1c Calcium Ferritin Alkaline Phosphatase Lactate Dehydrogenase Total Creatine Kinase C-Reactive Protein Albumin 2.8 L Sbwkf-9-Umqcdmlha Vpwhh-4-Wdokvnfyk Beta Globulins PEP Interpretation Urine Creatinine Complement C3 Complement C4 Coronavirus (PCR) 06/03/20 06/03/20 06/03/20 05:20 10:39 10:39 WBC RBC MCHC RDW Lymph % (Auto) Lymph # [place] # Seg Neutrophils % Seg Neuts % (Manual) Lymphocytes % (Manual) Seg Neutrophils # Seg Neutrophils # Man Lymphocytes # (Manual) Monocytes # (Manual) PT INR D-Dimer ABG pH POC ABG pCO2 POC ABG pO2 ABG pO2 ABG Base Excess ABG Oxyhemoglobin Carboxyhemoglobin Sodium Potassium Chloride Carbon Dioxide BUN Creatinine Glucose POC Glucose 208 H Hemoglobin A1c Calcium Ferritin Alkaline Phosphatase Lactate Dehydrogenase Total Creatine Kinase C-Reactive Protein Albumin Byjui-0-Imvuandpp Svrjd-0-Ajwvwarfy Beta Globulins PEP Interpretation Urine Creatinine Complement C3 223 H Complement C4 64 H Coronavirus (PCR) 06/03/20 06/03/20 06/03/20 11:40 13:06 16:58 WBC RBC MCHC RDW Lymph % (Auto) Lymph # [place] # Seg Neutrophils % Seg Neuts % (Manual) Lymphocytes % (Manual) Seg Neutrophils # Seg Neutrophils # Man Lymphocytes # (Manual) Monocytes # (Manual) PT INR D-Dimer ABG pH POC ABG pCO2 POC ABG pO2 ABG pO2 ABG Base Excess ABG Oxyhemoglobin Carboxyhemoglobin Sodium Potassium Chloride Carbon Dioxide BUN Creatinine Glucose POC Glucose 180 H 167 H 152 H Hemoglobin A1c Calcium Ferritin Alkaline Phosphatase Lactate Dehydrogenase Total Creatine Kinase C-Reactive Protein Albumin Yoogw-9-Buopumytm Snxnk-1-Dqqclbgbr Beta Globulins PEP Interpretation Urine Creatinine Complement C3 Complement C4 Coronavirus (PCR) 06/04/20 06/04/20 06/04/20 00:07 04:17 04:17 WBC 20.8 H RBC 5.20 H MCHC RDW 15.7 H Lymph % (Auto) Lymph # [place] # Seg Neutrophils % Seg Neuts % (Manual) 91.0 H Lymphocytes % (Manual) 4.0 L Seg Neutrophils # Seg Neutrophils # Man 18.9 H Lymphocytes # (Manual) 0.8 L Monocytes # (Manual) 1.0 H PT INR D-Dimer ABG pH POC ABG pCO2 POC ABG pO2 ABG pO2 ABG Base Excess ABG Oxyhemoglobin Carboxyhemoglobin Sodium 135 L Potassium 5.1 H Chloride 97.8 L Carbon Dioxide 20 L BUN 56 H Creatinine 3.1 H Glucose 178 H POC Glucose 206 H Hemoglobin A1c Calcium Ferritin Alkaline Phosphatase Lactate Dehydrogenase Total Creatine Kinase C-Reactive Protein Albumin 3.0 L Zspkn-1-Efdzzwaal Lohoq-8-Wbuhxpobb Beta Globulins PEP Interpretation Urine Creatinine Complement C3 Complement C4 Coronavirus (PCR) 06/04/20 06/04/20 06/04/20 04:17 05:35 11:08 WBC RBC MCHC RDW Lymph % (Auto) Lymph # [place] # Seg Neutrophils % Seg Neuts % (Manual) Lymphocytes % (Manual) Seg Neutrophils # Seg Neutrophils # Man Lymphocytes # (Manual) Monocytes # (Manual) PT INR D-Dimer ABG pH POC ABG pCO2 POC ABG pO2 ABG pO2 ABG Base Excess ABG Oxyhemoglobin Carboxyhemoglobin Sodium Potassium Chloride Carbon Dioxide BUN Creatinine Glucose POC Glucose 166 H 159 H Hemoglobin A1c Calcium Ferritin Alkaline Phosphatase Lactate Dehydrogenase Total Creatine Kinase C-Reactive Protein Albumin 2.6 L Lusbj-2-Jvtukohwb 0.5 H Zkbfw-6-Xodumfega 1.6 H Beta Globulins 0.6 H PEP Interpretation see below H Urine Creatinine Complement C3 Complement C4 Coronavirus (PCR) 06/04/20 06/05/20 06/05/20 18:06 00:22 04:56 WBC 20.2 H RBC MCHC RDW 15.6 H Lymph % (Auto) 4.7 L Lymph # 0.9 L [place] # 1.0 H Seg Neutrophils % Seg Neuts % (Manual) Lymphocytes % (Manual) Seg Neutrophils # 18.2 H Seg Neutrophils # Man Lymphocytes # (Manual) Monocytes # (Manual) PT INR D-Dimer ABG pH POC ABG pCO2 POC ABG pO2 ABG pO2 ABG Base Excess ABG Oxyhemoglobin Carboxyhemoglobin Sodium Potassium Chloride Carbon Dioxide BUN Creatinine Glucose POC Glucose 190 H 234 H Hemoglobin A1c Calcium Ferritin Alkaline Phosphatase Lactate Dehydrogenase Total Creatine Kinase C-Reactive Protein Albumin Bulws-7-Wfevdivdn Czoai-5-Odzsvocvi Beta Globulins PEP Interpretation Urine Creatinine Complement C3 Complement C4 Coronavirus (PCR) 06/05/20 06/05/20 06/05/20 04:56 05:43 09:27 WBC RBC MCHC RDW Lymph % (Auto) Lymph # [place] # Seg Neutrophils % Seg Neuts % (Manual) Lymphocytes % (Manual) Seg Neutrophils # Seg Neutrophils # Man Lymphocytes # (Manual) Monocytes # (Manual) PT INR D-Dimer ABG pH POC ABG pCO2 POC ABG pO2 ABG pO2 ABG Base Excess ABG Oxyhemoglobin Carboxyhemoglobin Sodium Potassium Chloride Carbon Dioxide 21 L BUN 63 H Creatinine 3.0 H Glucose 170 H POC Glucose 156 H 106 H Hemoglobin A1c Calcium Ferritin Alkaline Phosphatase Lactate Dehydrogenase Total Creatine Kinase C-Reactive Protein Albumin 3.0 L Tvonu-8-Ebiyqjdwi Ddrlo-6-Cbvubjwzy Beta Globulins PEP Interpretation Urine Creatinine Complement C3 Complement C4 Coronavirus (PCR) 06/05/20 06/05/20 06/06/20 15:50 23:36 10:31 WBC 18.3 H RBC MCHC RDW 15.6 H Lymph % (Auto) Lymph # [place] # Seg Neutrophils % Seg Neuts % (Manual) 90.0 H Lymphocytes % (Manual) 6.0 L Seg Neutrophils # Seg Neutrophils # Man 16.5 H Lymphocytes # (Manual) 1.1 L Monocytes # (Manual) PT INR D-Dimer ABG pH POC ABG pCO2 POC ABG pO2 ABG pO2 ABG Base Excess ABG Oxyhemoglobin Carboxyhemoglobin Sodium Potassium Chloride Carbon Dioxide BUN Creatinine Glucose POC Glucose 197 H 193 H Hemoglobin A1c Calcium Ferritin Alkaline Phosphatase Lactate Dehydrogenase Total Creatine Kinase C-Reactive Protein Albumin Xphmb-0-Wpsrugsqe Fzhlm-9-Iaxuojcmp Beta Globulins PEP Interpretation Urine Creatinine Complement C3 Complement C4 Coronavirus (PCR) 06/06/20 06/06/20 06/06/20 10:31 12:34 17:34 WBC RBC MCHC RDW Lymph % (Auto) Lymph # [place] # Seg Neutrophils % Seg Neuts % (Manual) Lymphocytes % (Manual) Seg Neutrophils # Seg Neutrophils # Man Lymphocytes # (Manual) Monocytes # (Manual) PT INR D-Dimer ABG pH POC ABG pCO2 POC ABG pO2 ABG pO2 ABG Base Excess ABG Oxyhemoglobin Carboxyhemoglobin Sodium Potassium Chloride Carbon Dioxide BUN 65 H Creatinine 2.7 H Glucose 61 L POC Glucose 50 L 117 H Hemoglobin A1c Calcium Ferritin Alkaline Phosphatase Lactate Dehydrogenase Total Creatine Kinase C-Reactive Protein Albumin Frnnj-9-Tjtrzttxi Nlgwl-6-Jxmmkwpgl Beta Globulins PEP Interpretation Urine Creatinine Complement C3 Complement C4 Coronavirus (PCR) 06/07/20 06/07/20 06/07/20 04:40 04:40 06:07 WBC 16.3 H RBC MCHC RDW 15.6 H Lymph % (Auto) 4.9 L Lymph # 0.8 L [place] # 0.9 H Seg Neutrophils % 89.3 H Seg Neuts % (Manual) Lymphocytes % (Manual) Seg Neutrophils # 14.6 H Seg Neutrophils # Man Lymphocytes # (Manual) Monocytes # (Manual) PT INR D-Dimer ABG pH POC ABG pCO2 POC ABG pO2 ABG pO2 ABG Base Excess ABG Oxyhemoglobin Carboxyhemoglobin Sodium Potassium 5.1 H D Chloride Carbon Dioxide BUN 67 H Creatinine 2.6 H Glucose 52 L POC Glucose 45 L Hemoglobin A1c Calcium Ferritin Alkaline Phosphatase Lactate Dehydrogenase Total Creatine Kinase C-Reactive Protein Albumin Bqnnc-3-Djmnemrsf Nluyy-1-Jhliunrao Beta Globulins PEP Interpretation Urine Creatinine Complement C3 Complement C4 Coronavirus (PCR) 06/07/20 06/07/20 06/07/20 10:34 10:49 12:26 WBC RBC MCHC RDW Lymph % (Auto) Lymph # [place] # Seg Neutrophils % Seg Neuts % (Manual) Lymphocytes % (Manual) Seg Neutrophils # Seg Neutrophils # Man Lymphocytes # (Manual) Monocytes # (Manual) PT INR D-Dimer ABG pH POC ABG pCO2 POC ABG pO2 ABG pO2 ABG Base Excess ABG Oxyhemoglobin Carboxyhemoglobin Sodium Potassium Chloride Carbon Dioxide BUN Creatinine Glucose POC Glucose 57 L 54 L 192 H Hemoglobin A1c Calcium Ferritin Alkaline Phosphatase Lactate Dehydrogenase Total Creatine Kinase C-Reactive Protein Albumin Tifvj-4-Rbbpgfjab Fdlay-3-Tqqegcwxp Beta Globulins PEP Interpretation Urine Creatinine Complement C3 Complement C4 Coronavirus (PCR) 06/07/20 06/08/20 06/08/20 17:42 00:12 04:52 WBC 18.8 H RBC MCHC RDW 15.6 H Lymph % (Auto) 4.6 L Lymph # 0.9 L [place] # 1.0 H Seg Neutrophils % 89.7 H Seg Neuts % (Manual) Lymphocytes % (Manual) Seg Neutrophils # 16.9 H Seg Neutrophils # Man Lymphocytes # (Manual) Monocytes # (Manual) PT INR D-Dimer ABG pH POC ABG pCO2 POC ABG pO2 ABG pO2 ABG Base Excess ABG Oxyhemoglobin Carboxyhemoglobin Sodium Potassium Chloride Carbon Dioxide BUN Creatinine Glucose POC Glucose 241 H 285 H Hemoglobin A1c Calcium Ferritin Alkaline Phosphatase Lactate Dehydrogenase Total Creatine Kinase C-Reactive Protein Albumin Glnnc-6-Nhouxcmsi Cyikb-3-Avorcquob Beta Globulins PEP Interpretation Urine Creatinine Complement C3 Complement C4 Coronavirus (PCR) 06/08/20 06/08/20 06/08/20 04:52 05:41 12:44 WBC RBC MCHC RDW Lymph % (Auto) Lymph # [place] # Seg Neutrophils % Seg Neuts % (Manual) Lymphocytes % (Manual) Seg Neutrophils # Seg Neutrophils # Man Lymphocytes # (Manual) Monocytes # (Manual) PT INR D-Dimer ABG pH POC ABG pCO2 POC ABG pO2 ABG pO2 ABG Base Excess ABG Oxyhemoglobin Carboxyhemoglobin Sodium Potassium Chloride Carbon Dioxide BUN 66 H Creatinine 2.6 H Glucose 175 H POC Glucose 177 H 172 H Hemoglobin A1c Calcium Ferritin Alkaline Phosphatase Lactate Dehydrogenase Total Creatine Kinase C-Reactive Protein Albumin Prwvf-3-Fvbgobvts Trvuf-6-Csdxwgqcn Beta Globulins PEP Interpretation Urine Creatinine Complement C3 Complement C4 Coronavirus (PCR) 06/08/20 06/08/20 06/09/20 18:18 23:39 01:03 WBC 19.6 H RBC MCHC 36 H RDW 15.5 H Lymph % (Auto) 5.3 L Lymph # 1.0 L [place] # Seg Neutrophils % Seg Neuts % (Manual) Lymphocytes % (Manual) Seg Neutrophils # 17.7 H Seg Neutrophils # Man Lymphocytes # (Manual) Monocytes # (Manual) PT INR D-Dimer ABG pH POC ABG pCO2 POC ABG pO2 ABG pO2 ABG Base Excess ABG Oxyhemoglobin Carboxyhemoglobin Sodium Potassium Chloride Carbon Dioxide BUN Creatinine Glucose POC Glucose 251 H 196 H Hemoglobin A1c Calcium Ferritin Alkaline Phosphatase Lactate Dehydrogenase Total Creatine Kinase C-Reactive Protein Albumin Lthno-1-Iozkdxhcx Kmgzf-2-Rpoglbrdx Beta Globulins PEP Interpretation Urine Creatinine Complement C3 Complement C4 Coronavirus (PCR) 06/09/20 06/09/20 06/09/20 01:03 05:42 06:02 WBC RBC MCHC RDW Lymph % (Auto) Lymph # [place] # Seg Neutrophils % Seg Neuts % (Manual) Lymphocytes % (Manual) Seg Neutrophils # Seg Neutrophils # Man Lymphocytes # (Manual) Monocytes # (Manual) PT INR D-Dimer ABG pH POC ABG pCO2 POC ABG pO2 ABG pO2 ABG Base Excess ABG Oxyhemoglobin Carboxyhemoglobin Sodium 136 L Potassium Chloride Carbon Dioxide 20 L 20 L BUN 68 H 66 H Creatinine 2.7 H 2.7 H Glucose 180 H 141 H POC Glucose 136 H Hemoglobin A1c Calcium 8.3 L Ferritin Alkaline Phosphatase Lactate Dehydrogenase Total Creatine Kinase C-Reactive Protein Albumin 2.6 L Tmavc-[id number]-Fsxjuxsni Phdzh-8-Hlglyhzkt Beta Globulins PEP Interpretation Urine Creatinine Complement C3 Complement C4 Coronavirus (PCR) 06/09/20 06/09/20 06/09/20 09:21 09:21 09:21 WBC RBC MCHC RDW Lymph % (Auto) Lymph # [place] # Seg Neutrophils % Seg Neuts % (Manual) Lymphocytes % (Manual) Seg Neutrophils # Seg Neutrophils # Man Lymphocytes # (Manual) Monocytes # (Manual) PT INR D-Dimer > 76487 H ABG pH POC ABG pCO2 POC ABG pO2 ABG pO2 ABG Base Excess ABG Oxyhemoglobin Carboxyhemoglobin Sodium Potassium Chloride Carbon Dioxide BUN Creatinine Glucose 195 H POC Glucose Hemoglobin A1c Calcium Ferritin 1045.0 H Alkaline Phosphatase Lactate Dehydrogenase 461 H Total Creatine Kinase C-Reactive Protein 9.30 H Albumin Pruef-7-Vesjykwil Qcmbi-3-Lbaeqkfrq Beta Globulins PEP Interpretation Urine Creatinine Complement C3 Complement C4 Coronavirus (PCR) 06/09/20 06/09/20 06/09/20 10:26 17:30 22:22 WBC RBC MCHC RDW Lymph % (Auto) Lymph # [place] # Seg Neutrophils % Seg Neuts % (Manual) Lymphocytes % (Manual) Seg Neutrophils # Seg Neutrophils # Man Lymphocytes # (Manual) Monocytes # (Manual) PT INR D-Dimer ABG pH POC ABG pCO2 POC ABG pO2 ABG pO2 ABG Base Excess ABG Oxyhemoglobin Carboxyhemoglobin Sodium Potassium Chloride Carbon Dioxide BUN Creatinine Glucose POC Glucose 178 H 219 H 167 H Hemoglobin A1c Calcium Ferritin Alkaline Phosphatase Lactate Dehydrogenase Total Creatine Kinase C-Reactive Protein Albumin Besok-4-Htzfrhhxz Yrkgx-9-Dznvfcdvm Beta Globulins PEP Interpretation Urine Creatinine Complement C3 Complement C4 Coronavirus (PCR) 06/10/20 06/10/20 06/10/20 00:34 00:34 04:42 WBC 18.6 H RBC MCHC RDW 15.6 H Lymph % (Auto) Lymph # [place] # Seg Neutrophils % Seg Neuts % (Manual) 94.0 H Lymphocytes % (Manual) 2.0 L Seg Neutrophils # Seg Neutrophils # Man 17.5 H Lymphocytes # (Manual) 0.4 L Monocytes # (Manual) PT INR D-Dimer ABG pH POC ABG pCO2 POC ABG pO2 ABG pO2 ABG Base Excess ABG Oxyhemoglobin Carboxyhemoglobin Sodium Potassium 5.5 H 6.0 H Chloride Carbon Dioxide 21 L 19 L BUN 70 H 68 H Creatinine 2.6 H 2.8 H Glucose 177 H 185 H POC Glucose Hemoglobin A1c Calcium Ferritin Alkaline Phosphatase 134 H Lactate Dehydrogenase Total Creatine Kinase C-Reactive Protein Albumin 2.9 L Ypyjo-6-Diwlzauyx Zgzlj-8-Lenebaand Beta Globulins PEP Interpretation Urine Creatinine Complement C3 Complement C4 Coronavirus (PCR) 06/10/20 06/10/20 06/10/20 05:54 11:04 13:18 WBC RBC MCHC RDW Lymph % (Auto) Lymph # [place] # Seg Neutrophils % Seg Neuts % (Manual) Lymphocytes % (Manual) Seg Neutrophils # Seg Neutrophils # Man Lymphocytes # (Manual) Monocytes # (Manual) PT INR D-Dimer ABG pH POC ABG pCO2 31.7 L POC ABG pO2 57.9 L ABG pO2 ABG Base Excess ABG Oxyhemoglobin Carboxyhemoglobin Sodium Potassium Chloride Carbon Dioxide BUN Creatinine Glucose POC Glucose 171 H 243 H Hemoglobin A1c Calcium Ferritin Alkaline Phosphatase Lactate Dehydrogenase Total Creatine Kinase C-Reactive Protein Albumin Vzvfc-3-Ovlapxcax Fwhua-4-Zaflascsx Beta Globulins PEP Interpretation Urine Creatinine Complement C3 Complement C4 Coronavirus (PCR) 06/10/20 06/11/20 06/11/20 17:28 00:14 00:14 WBC 21.1 H RBC MCHC RDW 15.4 H Lymph % (Auto) Lymph # [place] # Seg Neutrophils % Seg Neuts % (Manual) 93.0 H Lymphocytes % (Manual) 5.0 L Seg Neutrophils # Seg Neutrophils # Man 19.6 H Lymphocytes # (Manual) 1.1 L Monocytes # (Manual) PT INR D-Dimer ABG pH POC ABG pCO2 POC ABG pO2 ABG pO2 ABG Base Excess ABG Oxyhemoglobin Carboxyhemoglobin Sodium Potassium Chloride Carbon Dioxide 18 L BUN 73 H Creatinine 2.7 H Glucose 216 H POC Glucose 265 H Hemoglobin A1c Calcium Ferritin Alkaline Phosphatase 134 H Lactate Dehydrogenase Total Creatine Kinase C-Reactive Protein Albumin 2.7 L Srpxp-2-Bmcfajykn Vamum-6-Bjznalucr Beta Globulins PEP Interpretation Urine Creatinine Complement C3 Complement C4 Coronavirus (PCR) 06/11/20 06/11/20 06/11/20 05:27 13:14 17:27 WBC RBC MCHC RDW Lymph % (Auto) Lymph # [place] # Seg Neutrophils % Seg Neuts % (Manual) Lymphocytes % (Manual) Seg Neutrophils # Seg Neutrophils # Man Lymphocytes # (Manual) Monocytes # (Manual) PT INR D-Dimer ABG pH POC ABG pCO2 POC ABG pO2 ABG pO2 ABG Base Excess ABG Oxyhemoglobin Carboxyhemoglobin Sodium Potassium Chloride Carbon Dioxide BUN Creatinine Glucose POC Glucose 241 H 273 H 317 H Hemoglobin A1c Calcium Ferritin Alkaline Phosphatase Lactate Dehydrogenase Total Creatine Kinase C-Reactive Protein Albumin Tjhus-1-Srbe[place]oma Jvysi-5-Xgzkxuhoj Beta Globulins PEP Interpretation Urine Creatinine Complement C3 Complement C4 Coronavirus (PCR) 06/11/20 06/11/20 06/11/20 18:21 22:13 23:47 WBC RBC MCHC RDW Lymph % (Auto) Lymph # [place] # Seg Neutrophils % Seg Neuts % (Manual) Lymphocytes % (Manual) Seg Neutrophils # Seg Neutrophils # Man Lymphocytes # (Manual) Monocytes # (Manual) PT INR D-Dimer ABG pH POC ABG pCO2 POC ABG pO2 ABG pO2 ABG Base Excess ABG Oxyhemoglobin Carboxyhemoglobin Sodium Potassium Chloride Carbon Dioxide BUN Creatinine Glucose POC Glucose 350 H 317 H 303 H Hemoglobin A1c Calcium Ferritin Alkaline Phosphatase Lactate Dehydrogenase Total Creatine Kinase C-Reactive Protein Albumin Aifcv-8-Mzspavwsr Xyxla-3-Iyprjmwxt Beta Globulins PEP Interpretation Urine Creatinine Complement C3 Complement C4 Coronavirus (PCR) 06/12/20 06/12/20 06/12/20 05:34 05:34 06:17 WBC 25.2 H RBC 5.14 H MCHC RDW 15.5 H Lymph % (Auto) Lymph # [place] # Seg Neutrophils % Seg Neuts % (Manual) 93.0 H Lymphocytes % (Manual) 2.0 L Seg Neutrophils # Seg Neutrophils # Man 23.4 H Lymphocytes # (Manual) 0.5 L Monocytes # (Manual) 1.3 H PT INR D-Dimer ABG pH POC ABG pCO2 POC ABG pO2 ABG pO2 ABG Base Excess ABG Oxyhemoglobin Carboxyhemoglobin Sodium 148 H Potassium Chloride 108.7 H Carbon Dioxide 19 L BUN 88 H Creatinine 3.7 H Glucose 314 H POC Glucose 281 H Hemoglobin A1c Calcium Ferritin Alkaline Phosphatase Lactate Dehydrogenase Total Creatine Kinase C-Reactive Protein Albumin Ibjep-5-Ycimqwpec Sabzs-2-Rgkaylupz Beta Globulins PEP Interpretation Urine Creatinine Complement C3 Complement C4 Coronavirus (PCR) 06/12/20 06/12/20 06/12/20 09:32 11:38 13:17 WBC RBC MCHC RDW Lymph % (Auto) Lymph # [place] # Seg Neutrophils % Seg Neuts % (Manual) Lymphocytes % (Manual) Seg Neutrophils # Seg Neutrophils # Man Lymphocytes # (Manual) Monocytes # (Manual) PT INR D-Dimer ABG pH 7.056 L POC ABG pCO2 30.5 L 88.1 H POC ABG pO2 49.5 L ABG pO2 ABG Base Excess ABG Oxyhemoglobin 92.7 L Carboxyhemoglobin 0.1 L Sodium Potassium Chloride Carbon Dioxide BUN Creatinine Glucose POC Glucose 353 H Hemoglobin A1c Calcium Ferritin Alkaline Phosphatase Lactate Dehydrogenase Total Creatine Kinase C-Reactive Protein Albumin Gkhje-9-Hoykjgydr Lfrvj-4-Tunttwyvq Beta Globulins PEP Interpretation Urine Creatinine Complement C3 Complement C4 Coronavirus (PCR) 06/12/20 06/12/20 06/13/20 17:45 23:53 03:30 WBC RBC MCHC RDW Lymph % (Auto) Lymph # [place] # Seg Neutrophils % Seg Neuts % (Manual) Lymphocytes % (Manual) Seg Neutrophils # Seg Neutrophils # Man Lymphocytes # (Manual) Monocytes # (Manual) PT INR D-Dimer ABG pH 7.091 L* POC ABG pCO2 POC ABG pO2 ABG pO2 172.6 H ABG Base Excess -7.3 L ABG Oxyhemoglobin Carboxyhemoglobin Sodium Potassium Chloride Carbon Dioxide BUN Creatinine Glucose POC Glucose 348 H 279 H Hemoglobin A1c Calcium Ferritin Alkaline Phosphatase Lactate Dehydrogenase Total Creatine Kinase C-Reactive Protein Albumin Zrikq-7-Izbljiaoo Hlnhd-6-Uzpzwfxuh Beta Globulins PEP Interpretation Urine Creatinine Complement C3 Complement C4 Coronavirus (PCR) 06/13/20 06/13/20 06/13/20 05:06 05:06 06:03 WBC 30.3 H RBC MCHC RDW 16.0 H Lymph % (Auto) 2.4 L Lymph # 0.7 L [place] # 1.6 H Seg Neutrophils % Seg Neuts % (Manual) Lymphocytes % (Manual) Seg Neutrophils # 27.9 H Seg Neutrophils # Man Lymphocytes # (Manual) Monocytes # (Manual) PT INR D-Dimer ABG pH POC ABG pCO2 POC ABG pO2 ABG pO2 ABG Base Excess ABG Oxyhemoglobin Carboxyhemoglobin Sodium 148 H Potassium 8.8 H* D Chloride 109.5 H Carbon Dioxide BUN 118 H Creatinine 6.4 H D Glucose 272 H POC Glucose 285 H Hemoglobin A1c Calcium 7.7 L D Ferritin Alkaline Phosphatase Lactate Dehydrogenase Total Creatine Kinase C-Reactive Protein Albumin 2.5 L Deixa-3-Kuslngdgf Modrk-8-Yvgwdhsqp Beta Globulins PEP Interpretation Urine Creatinine Complement C3 Complement C4 Coronavirus (PCR) 06/13/20 12:15 WBC RBC MCHC RDW Lymph % (Auto) Lymph # [place] # Seg Neutrophils % Seg Neuts % (Manual) Lymphocytes % (Manual) Seg Neutrophils # Seg Neutrophils # Man Lymphocytes # (Manual) Monocytes # (Manual) PT INR D-Dimer ABG pH POC ABG pCO2 POC ABG pO2 ABG pO2 ABG Base Excess ABG Oxyhemoglobin Carboxyhemoglobin Sodium Potassium Chloride Carbon Dioxide BUN Creatinine Glucose POC Glucose 288 H Hemoglobin A1c Calcium Ferritin Alkaline Phosphatase Lactate Dehydrogenase Total Creatine Kinase C-Reactive Protein Albumin Dcneh-4-Zixdjofus Kbpeo-5-Ghqmrayib Beta Globulins PEP Interpretation Urine Creatinine Complement C3 Complement C4 Coronavirus (PCR)
--- NOTE | 2020-06-13 13:50 | Progress Note ---
Assessment and Plan Cultures: Coronavirus PCR:positive Blood culture: no growth A/P: 54-year-old male with diabetes, CKD, prior CVA, obesity was admitted to the hospital with complaints of cough, shortness of breath along with fatigue and malaise: #Severe COVID pneumonia: elevated inflammatory markers, now on BiPAP in the ICU. Was not candidate for Remdesivir due to renal function #Acute hypoxic respiratory failure: On BiPAP #KEITH on CKD: Patient now transitioning to HD. Recs: Now on high dose steroids per pulm trend ferritin, LDH, d-dimer, CRP every 2-3 days for risk stratification and to assess disease progression prophylactic anticoagulation based on d-dimer Renally dosing cefepime. D2 Obtain sputum cultures. Darby Redding MD [facility] M: [phone] O: [phone] F: [phone] Subjective Date of service: 06/13/20 Principal diagnosis: COVID-19 PNA, AF RVR Interval history: Febrile this morning to 100.8. White count is 30.3. Objective - Exam Narrative Exam: Physical exam deferred due to PPE conservation strategy. Please refer to primary team's note. - Constitutional Vitals: Vital Signs Temp Pulse Resp BP Pulse Ox 98.8 F 98 H 32 H 116/79 94 06/13/20 12:00 06/13/20 13:37 06/13/20 13:00 06/13/20 13:37 06/13/20 13:00 Temperature -Last 24 Hours Temperature 98.8 F Temperature 98.8 F Temperature 98.8 F Temperature 100.8 F Temperature 100.8 F Temperature 99.7 F Temperature 97.8 F - Labs CBC & Chem 7: 06/13/20 05:06 06/13/20 05:06 Labs: Abnormal lab results 06/12/20 06/12/20 06/12/20 Range/Units 13:17 17:45 23:53 WBC (4.5-11.0) K/mm3 RDW (13.2-15.2) % Lymph % (Auto) (13.4-35.0) % Lymph # (1.2-5.4) K/mm3 [place] # (0.0-0.8) K/mm3 Seg Neutrophils # (1.8-7.7) K/mm3 ABG pH 7.056 L (7.320-7.450) POC ABG pCO2 88.1 H (32.0-48.0) mmHg ABG pO2 (80.0-90.0) mm Hg ABG Base Excess (-2.0-3.0) mmol/L ABG Oxyhemoglobin 92.7 L (94-98) Carboxyhemoglobin 0.1 L (0.5-1.5) Sodium (137-145) mmol/L Potassium (3.6-5.0) mmol/L Chloride (98-107) mmol/L BUN (9-20) mg/dL Creatinine (0.8-1.3) mg/dL Glucose (75-100) mg/dL POC Glucose 348 H 279 H (70-105) Calcium (8.4-10.2) mg/dL Albumin (3.9-5) g/dL 06/13/20 06/13/20 06/13/20 Range/Units 03:30 05:06 05:06 WBC 30.3 H (4.5-11.0) K/mm3 RDW 16.0 H (13.2-15.2) % Lymph % (Auto) 2.4 L (13.4-35.0) % Lymph # 0.7 L (1.2-5.4) K/mm3 [place] # 1.6 H (0.0-0.8) K/mm3 Seg Neutrophils # 27.9 H (1.8-7.7) K/mm3 ABG pH 7.091 L* (7.320-7.450) POC ABG pCO2 (32.0-48.0) mmHg ABG pO2 172.6 H (80.0-90.0) mm Hg ABG Base Excess -7.3 L (-2.0-3.0) mmol/L ABG Oxyhemoglobin (94-98) Carboxyhemoglobin (0.5-1.5) Sodium 148 H (137-145) mmol/L Potassium 8.8 H* D (3.6-5.0) mmol/L Chloride 109.5 H (98-107) mmol/L BUN 118 H (9-20) mg/dL Creatinine 6.4 H D (0.8-1.3) mg/dL Glucose 272 H (75-100) mg/dL POC Glucose (70-105) Calcium 7.7 L D (8.4-10.2) mg/dL Albumin 2.5 L (3.9-5) g/dL 06/13/20 06/13/20 Range/Units 06:03 12:15 WBC (4.5-11.0) K/mm3 RDW (13.2-15.2) % Lymph % (Auto) (13.4-35.0) % Lymph # (1.2-5.4) K/mm3 [place] # (0.0-0.8) K/mm3 Seg Neutrophils # (1.8-7.7) K/mm3 ABG pH (7.320-7.450) POC ABG pCO2 (32.0-48.0) mmHg ABG pO2 (80.0-90.0) mm Hg ABG Base Excess (-2.0-3.0) mmol/L ABG Oxyhemoglobin (94-98) Carboxyhemoglobin (0.5-1.5) Sodium (137-145) mmol/L Potassium (3.6-5.0) mmol/L Chloride (98-107) mmol/L BUN (9-20) mg/dL Creatinine (0.8-1.3) mg/dL Glucose (75-100) mg/dL POC Glucose 285 H 288 H (70-105) Calcium (8.4-10.2) mg/dL Albumin (3.9-5) g/dL
[2020-06-13] MEDS: AMIODARONE 900 MG in DEXTROSE 5% IN WATER 482 ML IV SCH (15:09)
[2020-06-13 16:45] LABS: Calcium 7.2 mg/dL (8.4-10.2)
[2020-06-13] MEDS: INSULIN GLARGINE 100 UNITS/ML SUB-Q SCH (21:40)
[2020-06-14] MEDS: SODIUM BICARBONATE 150 MEQ in DEXTROSE 5% IN WATER 1,000 ML IV SCH (00:39)
[2020-06-14] MEDS: ACETAMINOPHEN 325 MG TAB PO PRN (00:42)
[2020-06-14] MEDS: INSULIN LISPRO 100 UNIT/ML VIAL 3 mL SUB-Q SCH ×7 (00:42→17:28)
[2020-06-14] MEDS: NORepinephrine/NS 4 MG-250 ML 4 MG/250 ML BAG IV SCH ×4 (01:47→15:02)
--- NOTE | 2020-06-14 02:12 | XRay Report ---
ABDOMEN 1 VIEW(S) INDICATION: ngt placement COMPARISON: None available. FINDINGS: Nasogastric tube has tip at the esophageal gastric junction and should be advanced 7 cm Bowel gas pattern: Within normal limits. No dilated loops of large or small bowel. Free air: None. Calcified gallstones: None seen. Calcified urinary tract calculi: None seen. Additional Findings: None. Skeletal structures: No acute abnormality. IMPRESSION: 1. No acute findings. Signer Name: Giuseppe Clifton MD Signed: 06/14/2020 2:07 AM Workstation Name: [id number]
[2020-06-14 05:41] LABS: Calcium 6.8 mg/dL (8.4-10.2)
[2020-06-14] MEDS: methylPREDNISolone Sod Succinate 40 MG/1 ML INJ IV SCH ×2 (06:32→13:03)
[2020-06-14 06:53] LABS: ABG Base Excess 2.5 mmol/L (-2.0-3.0); ABG HCO3 29.6 mmol/L (20.0-26.0); ABG Methemoglobin 0.7 % (0.0-1.5); ABG Oxygen Saturation 98.8 % (95.0-99.0); ABG PCO2 65.8 mm Hg; ABG PH 7.27 pH Units (7.350-7.450); ABG PO2 163.1 mm Hg (80.0-90.0)
[2020-06-14] MEDS ORDERED: SODIUM CHLORIDE 0.9% 100 ML IV PRN (08:00)
--- NOTE | 2020-06-14 08:25 | Progress Note ---
Assessment and Plan Assessment and plan: 54 year old male presenting with shortness of breath, with hypoxia on admission, saturation in the low 80s. Here, his chest x-ray showed bilateral infiltrates and COVID-19 test was positive. He was admitted to the hospital. Patient was started on steroids and ID and pulmonology were consulted. 06/02: Continue current management. Patient on high flow. If can tolerate prone recommend prone position during hours of sleep. 06/03: Continue supportive care. Overall prognosis is guarded. Will discuss proceed with obtaining consent for convalescent plasma. Poor prognosis considering COVID-19 and complicated by renal failure. 06/04: Continue current therapy consent obtained for convalescent plasma. Will discuss with laboratory to obtain the plasma. 06/05: Continue supportive care. Poor prognosis. Patient will like to think about plasma therapy and not ready to sign the consent now. 06/06: Patient remains on high flow with hypoxia persistent despite 100%. Still wants to think about the convalescent plasma therapy. Continue current support with pulmonary assistance. Mild improvement in pulmonary status still not a candidate for Remdesivir. Will obtain nephrology consultation to assist in management 06/07. Patient seen on BiPAP today. Nephrology consulted for impaired renal function. 06/08. He agrees to get convalescent plasma. Order placed in chart. Discussed with blood bank. 06/09: Convalescent plasma ordered, poor prognosis, still monitoring renal function, continues on BIPAP. Check markers for COVID19. continue steroids to complete 10 days. 06/10: Continue supportive care, cardiology input noted, will start on cardizem drip, Continue aniticoagulation, Renal function worse, will monitor and discuss with nephrology about possible initiating HD. 06/11/2020 -Patient is on continuous BiPAP. Pulmonary is following. -On amiodarone and IV metoprolol as needed. Cardiology is following. Patient is on anticoagulation. -Nephrology is following. Potassium level is ok 06/12/2020 -Patient's oxygen saturation was 80% despite 100% BiPAP -Pulmonary intubated the patient, currently sedated and on mechanical ventilator -Patient is still in A. fib and heart rate is not controlled, cardiology recommend to continue with amiodarone GTT, if heart rate didn't controlled after intubation will start with Cardizem drip 06/13/2020 -Was coded earlier this morning and was resuscitated successfully according to ACLS protocol -Patient was hypotensive and is on Levophed -ABG was done and pH was 7, on BMP potassium is 8.8, creatinine is 6.4. I put the patient on calcium gluconate, Kayexalate, bicarb drip and discussed with adjunct political science instructor Dr. Lux and he agreed with the plan of care. He said he is going to do dialysis. -Patient prognosis is grave 06/14 -Was coded yesterday morning and was resuscitated successfully according to ACLS protocol -Patient was hypotensive and is on Levophed - 06/13 ABG was done and pH was 7, on BMP potassium is 8.8, creatinine is 6.4. I put the patient on calcium gluconate, Kayexalate, bicarb drip and discussed with adjunct political science instructor Dr. Lux and he agreed with the plan of care. He had dialysis yesterday and K is 4.7, PH is 7.2 -Anoxic encephalopathy; patient was coded -Patient prognosis is grave Problems Acute Hypoxic Respiratory failure Atrial Fibrillation with RVR Luekocytosis- Persist 2018 novel sampson virus Pneumonia Bilateral penumonia KEITH WITH VASOMOTOR NEPHROPATHY ON CKD Stage 3 HTN DM with hyperglycemia Plan Patient is intubated on 06/12/2020 Continue steroids Remdesivir precluded due to renal function Continue antibiotics Convalescent plasma ordered as he now consents ID, pulmonology and nephrology following Aspiration precautions DVT/GI prophy Plan discussed with the patient The high probability of a clinically significant, sudden or life threatening deterioration of the [pulmonary] system(s) required my full and direct att ention, intervention and personal management. The aggregate critical care time was [35] minutes. This time is in addition to time spent performing reported procedures but includes the following: [x] Data Review and interpretation [x] Patient assessment and monitoring of vital signs [x] Documentation [x] Medication orders and management History Interval history: Patient was seen and evaluated this morning Patient's saturation was 80 despite on 100% BiPAP Pulmonary intubated the patient [06/12/2020] Patient was coded and successfully resuscitated according to ACLS protocol 06/13/20 Hospitalist Physical - Physical exam Narrative exam: Patient is intubated and on mechanical ventilator The patient is obese Vital signs as documented. Head exam is unremarkable. No scleral icterus . Neck is without jugular venous distension, thyromegaly, or carotid bruits. Lungs for mechanical ventilation Cardiac exam reveals regular rate and Rhythm. Abdominal exam reveals normal bowel sounds, nontender, no organomegaly. Extremities are nonedematous and both femoral and pedal pulses are normal. EMBEDDED SOFTWARE MANAGER: Sedated. - Constitutional Vitals: Temp Pulse Resp BP Pulse Ox 100.1 F H 91 H 26 H 112/76 100 06/14/20 03:22 06/14/20 06:45 06/14/20 06:45 06/14/20 06:45 06/14/20 06:45 General appearance: Present: no acute distress HEART Score - HEART Score Troponin: Troponin T 0.021 ng/mL (0.00-0.029) 05/31/20 15:23 Results - Labs CBC & Chem 7: 06/13/20 05:06 06/14/20 04:44 Labs: Laboratory Last Values WBC 30.3 K/mm3 (4.5-11.0) H 06/13/20 05:06 RBC 4.10 M/mm3 (3.65-5.03) 06/13/20 05:06 Hgb 12.0 gm/dl (11.8-15.2) D 06/13/20 05:06 Hct 38.0 % (35.5-45.6) D 06/13/20 05:06 MCV 93 fl (84-94) 06/13/20 05:06 MCH 29 pg (28-32) 06/13/20 05:06 MCHC 32 % (32-34) 06/13/20 05:06 RDW 16.0 % (13.2-15.2) H 06/13/20 05:06 Plt Count 314 K/mm3 (140-440) 06/13/20 05:06 Lymph % (Auto) 2.4 % (13.4-35.0) L 06/13/20 05:06 [place] % (Auto) 5.3 % (0.0-7.3) 06/13/20 05:06 Eos % (Auto) 0.0 % (0.0-4.3) 06/13/20 05:06 Baso % (Auto) 0.3 % (0.0-1.8) 06/13/20 05:06 Lymph # 0.7 K/mm3 (1.2-5.4) L 06/13/20 05:06 [place] # 1.6 K/mm3 (0.0-0.8) H 06/13/20 05:06 Eos # 0.0 K/mm3 (0.0-0.4) 06/13/20 05:06 Baso # 0.1 K/mm3 (0.0-0.1) 06/13/20 05:06 Add Manual Diff Complete 06/12/20 05:34 Total Counted 100 06/12/20 05:34 Seg Neutrophils % Pediatrics Hospitalist 06/13/20 05:06 Seg Neuts % (Manual) 93.0 % (40.0-70.0) H 06/12/20 05:34 Band Neutrophils % 0 % 06/12/20 05:34 Lymphocytes % (Manual) 2.0 % (13.4-35.0) L 06/12/20 05:34 Reactive Lymphs % (Man) 0 % 06/12/20 05:34 Monocytes % (Manual) 5.0 % (0.0-7.3) 06/12/20 05:34 Eosinophils % (Manual) 0 % (0.0-4.3) 06/12/20 05:34 Basophils % (Manual) 0 % (0.0-1.8) 06/12/20 05:34 Metamyelocytes % 0 % 06/12/20 05:34 Myelocytes % 0 % 06/12/20 05:34 Promyelocytes % 0 % 06/12/20 05:34 Blast Cells % 0 % 06/12/20 05:34 Nucleated RBC % Not Reportable 06/12/20 05:34 Seg Neutrophils # 27.9 K/mm3 (1.8-7.7) H 06/13/20 05:06 Seg Neutrophils # Man 23.4 K/mm3 (1.8-7.7) H 06/12/20 05:34 Band Neutrophils # 0.0 K/mm3 06/12/20 05:34 Lymphocytes # (Manual) 0.5 K/mm3 (1.2-5.4) L 06/12/20 05:34 Abs React Lymphs (Man) 0.0 K/mm3 06/12/20 05:34 Monocytes # (Manual) 1.3 K/mm3 (0.0-0.8) H 06/12/20 05:34 Eosinophils # (Manual) 0.0 K/mm3 (0.0-0.4) 06/12/20 05:34 Basophils # (Manual) 0.0 K/mm3 (0.0-0.1) 06/12/20 05:34 Metamyelocytes # 0.0 K/mm3 06/12/20 05:34 Myelocytes # 0.0 K/mm3 06/12/20 05:34 Promyelocytes # 0.0 K/mm3 06/12/20 05:34 Blast Cells # 0.0 K/mm3 06/12/20 05:34 WBC Morphology Not Reportable 06/12/20 05:34 Hypersegmented Neuts Not Reportable 06/12/20 05:34 Hyposegmented Neuts Not Reportable 06/12/20 05:34 Hypogranular Neuts Not Reportable 06/12/20 05:34 Smudge Cells Not Reportable 06/12/20 05:34 Toxic Granulation Not Reportable 06/12/20 05:34 Toxic Vacuolation Not Reportable 06/12/20 05:34 Dohle Bodies Not Reportable 06/12/20 05:34 Pelger-Huet Anomaly Not Reportable 06/12/20 05:34 Edwige Rods Not Reportable 06/12/20 05:34 Platelet Estimate Consistent w auto 06/12/20 05:34 Clumped Platelets Not Reportable 06/12/20 05:34 Plt Clumps, EDTA Not Reportable 06/12/20 05:34 Large Platelets Not Reportable 06/12/20 05:34 Giant Platelets Not Reportable 06/12/20 05:34 Platelet Satelliting Not Reportable 06/12/20 05:34 Plt Morphology Comment Not Reportable 06/12/20 05:34 RBC Morphology Not Reportable 06/12/20 05:34 Dimorphic RBCs Not Reportable 06/12/20 05:34 Polychromasia Not Reportable 06/12/20 05:34 Hypochromasia Not Reportable 06/12/20 05:34 Poikilocytosis Not Reportable 06/12/20 05:34 Anisocytosis Not Reportable 06/12/20 05:34 Microcytosis Not Reportable 06/12/20 05:34 Macrocytosis Not Reportable 06/12/20 05:34 Spherocytes Not Reportable 06/12/20 05:34 Pappenheimer Bodies Not Reportable 06/12/20 05:34 Sickle Cells Not Reportable 06/12/20 05:34 Target Cells Few 06/12/20 05:34 Tear Drop Cells Not Reportable 06/12/20 05:34 Ovalocytes Not Reportable 06/12/20 05:34 Helmet Cells Not Reportable 06/12/20 05:34 Sanchez-Paulding Bodies Not Reportable 06/12/20 05:34 [place] Rings Not Reportable 06/12/20 05:34 Agency Cells Not Reportable 06/12/20 05:34 Bite Cells Not Reportable 06/12/20 05:34 Crenated Cell Not Reportable 06/12/20 05:34 Elliptocytes Not Reportable 06/12/20 05:34 Acanthocytes (Spur) Not Reportable 06/12/20 05:34 Rouleaux Not Reportable 06/12/20 05:34 Hemoglobin C Crystals Not Reportable 06/12/20 05:34 Schistocytes Not Reportable 06/12/20 05:34 Malaria parasites Not Reportable 06/12/20 05:34 Edinson Bodies Not Reportable 06/12/20 05:34 Hem Pathologist Commnt No 06/12/20 05:34 PT 11.5 Sec. (12.2-14.9) L 05/31/20 15:23 INR 0.83 (0.87-1.13) L 05/31/20 15:23 D-Dimer > 51167 ng/mlDDU (0-234) H 06/09/20 09:21 ABG pH 7.270 pH Units (7.350-7.450) L 06/14/20 06:00 POC ABG pCO2 88.1 mmHg (32.0-48.0) H 06/12/20 13:17 ABG pCO2 65.8 mm Hg 06/14/20 06:00 POC ABG pO2 98.3 mmHg (83-108) 06/12/20 13:17 ABG pO2 163.1 mm Hg (80.0-90.0) H 06/14/20 06:00 POC ABG HCO3 24.2 06/12/20 13:17 ABG HCO3 29.6 mmol/L (20.0-26.0) H 06/14/20 06:00 ABG O2 Saturation 98.8 % (95.0-99.0) 06/14/20 06:00 ABG O2 Content 7.9 (0.0-44) 06/14/20 06:00 POC ABG Base Excess -8.5 06/12/20 13:17 ABG Base Excess 2.5 mmol/L (-2.0-3.0) 06/14/20 06:00 ABG Hemoglobin 5.5 gm/dl (14.0-18.0) L 06/14/20 06:00 ABG Oxyhemoglobin 92.7 (94-98) L 06/12/20 13:17 ABG Carboxyhemoglobin 1.1 % (0.0-5.0) 06/14/20 06:00 ABG Methemoglobin 0.7 % (0.0-1.5) 06/14/20 06:00 Oxyhemoglobin 96.9 % (95.0-99.0) 06/14/20 06:00 Carboxyhemoglobin 0.1 (0.5-1.5) L 06/12/20 13:17 FiO2 100 % 06/14/20 06:00 Sodium 145 mmol/L (137-145) 06/14/20 04:44 Potassium 4.7 mmol/L (3.6-5.0) D 06/13/20 16:06 Chloride 103.9 mmol/L (98-107) 06/13/20 16:06 Carbon Dioxide 27 mmol/L (22-30) 06/14/20 04:44 Anion Gap 21 mmol/L 06/13/20 16:06 BUN 88 mg/dL (9-20) H 06/14/20 04:44 Creatinine 6.0 mg/dL (0.8-1.3) H 06/14/20 04:44 Estimated GFR 12 ml/min 06/14/20 04:44 BUN/Creatinine Ratio 15 % 06/14/20 04:44 Glucose 254 mg/dL (75-100) H 06/14/20 04:44 POC Glucose 253 (70-105) H 06/14/20 05:30 Hemoglobin A1c 8.5 % (4-6) H 05/31/20 16:49 Calcium 6.8 mg/dL (8.4-10.2) L 06/14/20 04:44 Magnesium 2.20 mg/dL (1.7-2.3) 05/31/20 15:23 Ferritin 1045.0 ng/mL (30.0-300.0) H 06/09/20 09:21 Total Bilirubin 0.30 mg/dL (0.1-1.2) 06/13/20 05:06 AST 35 units/L (5-40) 06/13/20 05:06 ALT 37 units/L (7-56) 06/13/20 05:06 Alkaline Phosphatase 115 units/L (35-129) 06/13/20 05:06 Lactate Dehydrogenase 461 units/L (91-180) H 06/09/20 09:21 Total Creatine Kinase 325 units/L (55-170) H 05/31/20 15:23 Troponin T 0.021 ng/mL (0.00-0.029) 05/31/20 15:23 C-Reactive Protein 9.30 mg/dL (0.00-1.30) H 06/09/20 09:21 NT-Pro-B Natriuret Pep 111.3 pg/mL (0-900) 06/01/20 13:41 Serum Total Protein 6.8 g/dL (6.1-8.1) 06/04/20 04:17 Total Protein 6.7 g/dL (6.3-8.2) 06/13/20 05:06 Albumin 2.5 g/dL (3.9-5) L 06/13/20 05:06 Albumin/Globulin Ratio 0.6 % 06/13/20 05:06 Dlzyq-3-Deodetmax 0.5 g/dL (0.2-0.3) H 06/04/20 04:17 Qoscb-0-Sxohrwegy 1.6 g/dL (0.5-0.9) H 06/04/20 04:17 Beta Globulins 0.6 g/dL (0.2-0.5) H 06/04/20 04:17 Gamma Globulins 1.2 g/dL (0.8-1.7) 06/04/20 04:17 Abnorm Protein Band 1 see below 06/04/20 04:17 PEP Interpretation see below H 06/04/20 04:17 Procalcitonin 0.61 ng/mL (<0.15) 06/12/20 05:34 Urine Color Yellow (Yellow) 06/01/20 Unknown Urine Turbidity Clear (Clear) 06/01/20 Unknown Urine pH 5.0 (5.0-7.0) 06/01/20 Unknown Ur Specific [place] 1.018 (1.003-1.030) 06/01/20 Unknown Urine Protein >500 mg/dL (Negative) 06/01/20 Unknown Urine Glucose (UA) >=500 mg/dL (Negative) 06/01/20 Unknown Urine Ketones Tr mg/dL (Negative) 06/01/20 Unknown Urine Blood Mod (Negative) 06/01/20 Unknown Urine Nitrite Neg (Negative) 06/01/20 Unknown Urine Bilirubin Neg (Negative) 06/01/20 Unknown Urine Urobilinogen < 2.0 mg/dL (<2.0) 06/01/20 Unknown Ur Leukocyte Esterase Neg (Negative) 06/01/20 Unknown Urine WBC (Auto) 4.0 /HPF (0.0-6.0) 06/01/20 Unknown Urine RBC (Auto) 9.0 /HPF (0.0-6.0) 06/01/20 Unknown U Epithel Cells (Auto) 1.0 /HPF (0-13.0) 06/01/20 Unknown Urine Mucus Few /HPF 06/01/20 Unknown Urine Eosinophils None seen (None Seen) 06/01/20 Unknown Urine Creatinine 161.6 mg/dL (0.1-20.0) H 06/01/20 Unknown Urine Sodium 47 mmol/L 06/01/20 Unknown FLACO Screen Negative (Negative) 06/03/20 13:17 Proteinase 3 (PR3) Ab <1.0 AI (<1.0) 06/03/20 13:17 Myeloperoxidase Ab <1.0 AI (<1.0) 06/03/20 13:17 Double Strand DNA Ab See scanned result 06/03/20 13:17 Complement C3 223 mg/dL (82-185) H 06/03/20 10:39 Complement C4 64 mg/dL (15-53) H 06/03/20 10:39 Coronavirus (PCR) Positive (Negative) A 06/01/20 Unknown Hepatitis A IgM Ab Non-reactive (NonReactive) 06/03/20 10:39 Hep Bs Antigen Non-reactive (Negative) 06/03/20 10:39 Hep B Core IgM Ab Non-reactive (NonReactive) 06/03/20 10:39 Hepatitis C Antibody Non-reactive (NonReactive) 06/03/20 10:39 Blood Type A POSITIVE 06/08/20 09:41 Antibody Screen Negative 06/08/20 09:41 Microbiology: Microbiology 06/12/20 16:02 Tracheal Aspirate Sputum Culture - Final Hess/IV: Voiding Method Indwelling Catheter IV Catheter Type [Left Femoral Triple Lumen Cath ] IV Catheter Type [Right Triple Lumen Cath Femoral] IV Catheter Type [Right Upper Peripheral IV arm] IV Catheter Type [Right INT / Saline Lock Antecubital] Active Medications - Current Medications Current Medications: Generic Name Dose Route Start Last Admin Trade Name Freq PRN Reason Stop Dose Admin Acetaminophen 650 mg 05/31/20 15:49 06/14/20 00:42 Tylenol PO 650 mg Q6H PRN Administration Pain MILD(1-3)/Fever >100.5/LEBRON Albuterol 2.5 mg 05/31/20 15:49 Proventil IH Q3HRT PRN Shortness Of Breath Atorvastatin Calcium 20 mg 05/31/20 22:00 06/13/20 21:40 Lipitor PO 20 mg QHS CHERI Administration Bisacodyl 10 mg 05/31/20 15:57 Dulcolax [place] QDAY PRN Constipation unrelieved by MOM Chlorpromazine HCl 10 mg 05/31/20 15:57 Thorazine PO Q6H PRN Hiccups Dextrose 50 ml 05/31/20 15:59 06/07/20 10:48 D50w (25gm) Syringe IV 20 ml Q30MIN PRN Administration Hypoglycemia Protocol Enoxaparin Sodium 100 mg 06/10/20 10:00 06/13/20 09:23 Enoxaparin SUB-Q 100 mg Q24HR CHERI Administration Hydrophilic Ointment 1 applic 06/12/20 12:11 Vaseline Lip Therapy TP Q2HR PRN Dry Lips Amiodarone HCl 900 mg/ 500 mls @ 33.333 mls/hr 06/11/20 11:30 06/13/20 15:09 Dextrose IV 0.5 mg/min DIRECT CHERI 16.667 mls/hr Administration Protocol 1 MG/MIN Propofol 1,000 mg in 100 mls @ 3.39 mls/hr 06/12/20 13:00 06/13/20 23:01 Diprivan 10 Mg/Ml IV 5 mcg/kg/min TITR CHERI 3.39 mls/hr Administration Protocol 5 MCG/KG/MIN Norepinephrine 4 mg in 250 mls @ 7.5 mls/hr 06/12/20 14:00 06/14/20 06:32 Levophed Drip 4 Mg/Ns 250 Ml IV 14 mcg/min TITR CHERI 52.5 mls/hr Administration Protocol 2 MCG/MIN Sodium Bicarbonate 150 meq/ 1,150 mls @ 75 mls/hr 06/13/20 09:00 06/14/20 00:39 Dextrose IV 75 mls/hr DIRECT CHERI Administration Cefepime HCl 1 gm in 100 mls @ 200 mls/hr 06/14/20 10:00 Cefepime/Ns 1 Gm/100 Ml IV Q24HR CHERI Protocol Sodium Chloride 100 mls @ 999 mls/hr 06/14/20 08:00 Nacl 0.9% IV LINO PRN Hypotension Insulin Glargine 20 units 06/12/20 22:00 06/13/20 21:40 Lantus SUB-Q 20 units QHS CHERI Administration Insulin Human Lispro 0 unit 06/11/20 12:00 06/14/20 06:32 Humalog SUB-Q 6 unit Q6HR CHERI Administration Protocol Insulin Human Lispro 10 unit 06/12/20 16:30 06/13/20 18:30 Humalog SUB-Q 10 unit AC CHERI Administration Methylprednisolone Sodium Succinate 40 mg 06/11/20 14:00 06/14/20 06:32 Solu-Medrol IV 40 mg Q8HR CHERI Administration Metoprolol Tartrate 5 mg 06/09/20 14:52 06/11/20 05:13 Metoprolol IV 5 mg Q6HR PRN Administration Tachyarrhythmias Multi-Ingred Cream/Lotion/Oil/Oint 1 applic 06/12/20 12:11 Artificial Tears Ophth Oint OU Q4HR PRN Dry Eye(s) Naloxone HCl 0.1 mg 05/31/20 15:49 Naloxone IV Q2MIN PRN Res Rate </= 8 or 02 SAT < 92% Ondansetron HCl 4 mg 05/31/20 15:57 Zofran IV Q8H PRN N/V unrelieved by Reglan Oxycodone/Acetaminophen 1 tab 05/31/20 15:49 06/03/20 00:57 Percocet 5/325 PO 1 tab Q6H PRN Administration Pain, Moderate (4-6) Sodium Chloride 10 ml 05/31/20 22:00 06/13/20 09:25 Sodium Chloride Flush Syringe 10 Ml IV 10 ml BID CHERI Administration Sodium Chloride 10 ml 05/31/20 15:49 Sodium Chloride Flush Syringe 10 Ml IV PRN PRN LINE FLUSH Tizanidine HCl 4 mg 05/31/20 15:57 06/08/20 21:47 Zanaflex PO 4 mg Q8H PRN Administration Muscle Spasm Nutrition/Malnutrition Assess - Dietary Evaluation Nutrition/Malnutrition Findings: Nutrition Notes Start: 06/01/20 10:42 Freq: Status: Active Protocol: Document 06/13/20 14:35 JEFFERSON (Rec: 06/13/20 14:39 JEFFERSON [id number]) Co-Sign 06/13/20 14:35 LP Nutrition Notes Need for Assessment generated from: MD Order Initial or Follow up Reassessment Current Diagnosis CKD(stage I-IV),Diabetes, Hypertension,Stroke Other Pertinent Diagnosis COVID-19 (+) Current Diet Renal Labs/Tests Na 148 K 8.8 BUN 118 Cr 6.4 Gluc 272 Pertinent Medications Lantus 20 units Humalog 10 units Solu-Medrol Levophed 97.5 ml/hr NS 1000 ml Height 5 ft 9 in Weight 113 kg [place] Body Weight (kg) 72.72 BMI 36.8 Weight Status Obese Subjective/Other Information Pt now on vent 06/12. Per RN and chart, NGT for suctioning only. RN noted GI distended. No BM since 06/11. Burn Absent Trauma Absent GI Symptoms Other Skin Integrity/Comment Raymundo Score 13, skin intact Current % PO Negligible Minimum of two criteria No physical signs of malnutrition #1 Nutrition Diagnosis Altered nutrition-related laboratory values As Evidenced by Signs and Symptoms HgbA1c 8.5 Diagnosis Progress(for reassessment Continues documentation) Is patient on ventilator? Yes Is Patient Ambulatory and/or Out of Bed No REE-([place] [facility]-confined to bed) 2344.476 Kcal/Kg value to use for calculation 16 Approximate Energy Requirements Using 1808 kcal/Kg Additional Notes Protein Needs 145g (up to 2g/ kg IBW) Fluid: 1ml/kcal Nutrition Intervention Change Diet Order: Recommend TF or diet advancement once medically able. Nutrition Support: If TF, recommend starting Nepro 1.8 at 10ml/hr and increasing 10ml/hr q8hr to goal rate 40ml/hr. Flush 200ml q4hr. Kcal 1,728 Protein (gm) 78 Fluid (mL) 698 Goal #1 Improve BG control Goal #2 Pt resumes nutrient intake within 24-48hr. Anticipated Discharge Needs: Carbohydrate Controlled Diet Follow-Up By: 06/18/20 Additional Comments f/u on intakes and diet education needs if pt stable. If vent, check for TF consult.
[2020-06-14] MEDS: CEFEPIME/NS 1 GM/100 ML 1 GM/100 ML BAG IV SCH (09:37)
[2020-06-14] MEDS: ENOXAPARIN 100 MG/1 ML INJ SUB-Q SCH (09:37)
[2020-06-14] MEDS ORDERED: CEFEPIME/NS 2 GM/100 ML 2 GM/100 ML BAG IV SCH (10:00)
--- NOTE | 2020-06-14 11:23 | Progress Note ---
Assessment and Plan Cont supportive measures. Overall poor prognosis. The patient has been seen in conjunction with Dr. Vega who agrees with the assessment and plan of care. - Patient Problems (1) Cardiopulmonary arrest Current Visit: Yes Status: Acute (2) Acute respiratory failure with hypoxia Current Visit: Yes Status: Acute (3) Pneumonia due to COVID-19 virus Current Visit: Yes Status: Acute (4) Paroxysmal atrial fibrillation with RVR Current Visit: Yes Status: Acute (5) Elevated d-dimer Current Visit: Yes Status: Acute (6) Acute kidney injury superimposed on CKD Current Visit: Yes Status: Acute (7) Hyperkalemia Current Visit: Yes Status: Acute (8) HTN (hypertension) Current Visit: Yes Status: Chronic Qualifiers: Hypertension type: essential hypertension Qualified Code(s): I10 - Essential (primary) hypertension (9) Diabetes Current Visit: Yes Status: Chronic Qualifiers: Diabetes mellitus type: type 2 Diabetes mellitus halfway insulin use: with halfway use Diabetes mellitus complication status: with hyperglycemia Qualified Code(s): E11.65 - Type 2 diabetes mellitus with hyperglycemia; Z79.4 - halfway (current) use of insulin Subjective Date of service: 06/14/20 Principal diagnosis: COVID-19 PNA, AF RVR Interval history: pt remains intubated, sedated. currently in NSR HR 90s, amio gtt infusing. on vasopressor support. Objective Last Vital Signs Temp 100.1 F H 06/14/20 03:22 Pulse 94 H 06/14/20 08:46 Resp 32 H 06/14/20 08:46 BP 129/70 06/14/20 08:46 Pulse Ox 98 06/14/20 08:46 - Physical Examination General: Other (inubated, sedated) Neck: Positive: neck supple Cardiac: Positive: Reg Rate and Rhythm, S1/S2 Lungs: Positive: Decreased Breath Sounds Neuro: Positive: Other (intubated, sedated) Abdomen: Negative: Tender Skin: Negative: Rash Musculoskeletal: No Pain Extremities: Absent: edema - Labs and Meds Comprehensive Metabolic Panel 06/13/20 06/14/20 Range/Units 16:06 04:44 Sodium 146 H 145 (137-145) mmol/L Potassium 4.7 D (3.6-5.0) mmol/L Chloride 103.9 (98-107) mmol/L Carbon Dioxide 26 27 (22-30) mmol/L BUN 68 H 88 H (9-20) mg/dL Creatinine 4.5 H 6.0 H (0.8-1.3) mg/dL Glucose 298 H 254 H (75-100) mg/dL Calcium 7.2 L 6.8 L (8.4-10.2) mg/dL - Imaging and Cardiology EKG: report reviewed, image reviewed Echo: pending - Telemetry EKG Rhythm: Sinus Rhythm
--- NOTE | 2020-06-14 12:34 | Progress Note ---
Assessment and Plan 54 y/o male with acute respiratory failure, secondary to COVID 19 pneumonia and possibly acute renal failure, now intubated with worsening renal failure 1. Overall prognosis is very guarded given amount of downtime, prior hypoxemia, and current neurologic exam. Patient could very well be anoxic. Once more stable will send for Head CT. 2. Continue IV steroids. 3. Hold on proning as of now. 4. HD per renal, hopeful that he is only encephalopathic from uremia, but given current exam, doubtful. 5. Continue Amio 6. Will go ahead and use NG tube, nothing came back on suction from yesterday. 7. Very very poor prognosis, patient aware of this. Family knows of need for HD and code. Called family yesterday with no answer, will call again today. cct 31 minutes Subjective Date of service: 06/14/20 Principal diagnosis: COVID-19 PNA, AF RVR Interval history: No acute events. Tolerated HD and is getting it again today. Labs are still pending from this am, some not all. Remains unresponsive, not on sedation. Objective Vital Signs - 12hr 06/14/20 06/14/20 06/14/20 00:30 00:45 01:00 Temperature Pulse Rate 103 H 101 H 101 H Pulse Rate [ From Monitor] Respiratory 41 H 40 H 40 H Rate Blood Pressure 114/66 105/65 118/67 O2 Sat by Pulse 97 99 97 Oximetry 06/14/20 06/14/20 06/14/20 01:16 01:30 01:45 Temperature Pulse Rate 97 H 98 H 99 H Pulse Rate [ From Monitor] Respiratory 40 H 40 H 18 Rate Blood Pressure 84/45 79/43 97/60 O2 Sat by Pulse 93 95 95 Oximetry 06/14/20 06/14/20 06/14/20 02:00 02:15 02:30 Temperature Pulse Rate 100 H 99 H 95 H Pulse Rate [ From Monitor] Respiratory 17 38 H 32 H Rate Blood Pressure 103/64 94/34 71/40 O2 Sat by Pulse 95 92 92 Oximetry 06/14/20 06/14/20 06/14/20 02:45 03:00 03:15 Temperature Pulse Rate 93 H 97 H 97 H Pulse Rate [ From Monitor] Respiratory 24 17 30 H Rate Blood Pressure 89/65 105/66 99/58 O2 Sat by Pulse 98 97 98 Oximetry 06/14/20 06/14/20 06/14/20 03:22 03:30 03:45 Temperature 100.1 F H Pulse Rate 97 H 99 H Pulse Rate [ From Monitor] Respiratory 28 H 39 H Rate Blood Pressure 96/64 99/63 O2 Sat by Pulse 97 97 Oximetry 06/14/20 06/14/20 06/14/20 04:00 04:15 04:27 Temperature Pulse Rate 95 H 96 H 99 H Pulse Rate [ 97 H From Monitor] Respiratory 30 H 22 Rate Blood Pressure 103/60 102/57 O2 Sat by Pulse 98 98 98 Oximetry 06/14/20 06/14/20 06/14/20 04:30 04:45 05:00 Temperature Pulse Rate 98 H 97 H 96 H Pulse Rate [ From Monitor] Respiratory 32 H 21 28 H Rate Blood Pressure 105/66 108/66 96/63 O2 Sat by Pulse 97 97 98 Oximetry 06/14/20 06/14/20 06/14/20 05:15 05:30 05:46 Temperature Pulse Rate 97 H 98 H 105 H Pulse Rate [ From Monitor] Respiratory 32 H 24 11 L Rate Blood Pressure 106/68 103/67 129/88 O2 Sat by Pulse 98 98 79 L Oximetry 06/14/20 06/14/20 06/14/20 06:00 06:15 06:30 Temperature Pulse Rate 98 H 94 H 94 H Pulse Rate [ From Monitor] Respiratory 21 20 23 Rate Blood Pressure 106/73 123/75 114/70 O2 Sat by Pulse 100 100 100 Oximetry 06/14/20 06/14/20 06/14/20 06:45 07:00 07:15 Temperature Pulse Rate 91 H 94 H 89 Pulse Rate [ From Monitor] Respiratory 26 H 20 31 H Rate Blood Pressure 112/76 97/56 126/77 O2 Sat by Pulse 100 100 100 Oximetry 06/14/20 06/14/20 06/14/20 07:30 07:45 08:00 Temperature Pulse Rate 88 89 85 Pulse Rate [ From Monitor] Respiratory 22 29 H 28 H Rate Blood Pressure 121/76 121/77 134/80 O2 Sat by Pulse 100 100 100 Oximetry 06/14/20 06/14/20 06/14/20 08:15 08:23 08:30 Temperature Pulse Rate 89 87 88 Pulse Rate [ From Monitor] Respiratory 26 H 30 H Rate Blood Pressure 128/77 129/77 116/76 O2 Sat by Pulse 100 100 100 Oximetry 06/14/20 08:46 Temperature Pulse Rate 94 H Pulse Rate [ From Monitor] Respiratory 32 H Rate Blood Pressure 129/70 O2 Sat by Pulse 98 Oximetry Constitutional: no acute distress, lethargic, other (Morbidly obese) Eyes: non-icteric ENT: oropharynx moist, other (Crowded oropharynx) Neck: supple Ascultation: Bilateral: diminished breath sounds Cardiovascular: regular rate and rhythm Gastrointestinal: normoactive bowel sounds, non-distended, other (Obese) Integumentary: normal Extremities: no cyanosis Neurologic: non-focal exam CBC and BMP: 06/13/20 05:06 06/14/20 04:44 ABG, PT/INR, D-dimer: ABG ABG pH 7.270 pH Units (7.350-7.450) L 06/14/20 06:00 POC ABG pCO2 88.1 mmHg (32.0-48.0) H 06/12/20 13:17 ABG pCO2 65.8 mm Hg 06/14/20 06:00 POC ABG pO2 98.3 mmHg (83-108) 06/12/20 13:17 ABG pO2 163.1 mm Hg (80.0-90.0) H 06/14/20 06:00 POC ABG HCO3 24.2 06/12/20 13:17 ABG O2 Saturation 98.8 % (95.0-99.0) 06/14/20 06:00 PT/INR, D-dimer PT 11.5 Sec. (12.2-14.9) L 05/31/20 15:23 INR 0.83 (0.87-1.13) L 05/31/20 15:23 D-Dimer > 01044 ng/mlDDU (0-234) H 06/09/20 09:21 Abnormal lab findings: Abnormal Labs 05/31/20 05/31/20 05/31/20 15:23 15:23 15:23 WBC RBC MCHC RDW Lymph % (Auto) Lymph # [place] # Seg Neutrophils % Seg Neuts % (Manual) Lymphocytes % (Manual) Seg Neutrophils # Seg Neutrophils # Man Lymphocytes # (Manual) Monocytes # (Manual) PT INR D-Dimer ABG pH POC ABG pCO2 POC ABG pO2 ABG pO2 ABG HCO3 ABG Base Excess ABG Hemoglobin ABG Oxyhemoglobin Carboxyhemoglobin Sodium Potassium Chloride Carbon Dioxide BUN Creatinine Glucose 280 H POC Glucose Hemoglobin A1c Calcium Ferritin 583.4 H Alkaline Phosphatase Lactate Dehydrogenase 392 H Total Creatine Kinase 325 H C-Reactive Protein 14.30 H Albumin Tfnwe-4-Gwqlyiljf Ofwrv-4-Bhslkkmur Beta Globulins PEP Interpretation Urine Creatinine Complement C3 Complement C4 Coronavirus (PCR) 05/31/20 05/31/20 05/31/20 15:23 15:23 15:23 WBC RBC MCHC RDW 15.7 H Lymph % (Auto) 12.9 L Lymph # 1.0 L [place] # Seg Neutrophils % 81.7 H Seg Neuts % (Manual) Lymphocytes % (Manual) Seg Neutrophils # Seg Neutrophils # Man Lymphocytes # (Manual) Monocytes # (Manual) PT 11.5 L INR 0.83 L D-Dimer ABG pH POC ABG pCO2 POC ABG pO2 ABG pO2 ABG HCO3 ABG Base Excess ABG Hemoglobin ABG Oxyhemoglobin Carboxyhemoglobin Sodium 134 L Potassium Chloride 97.2 L Carbon Dioxide BUN 28 H Creatinine 3.0 H Glucose 279 H POC Glucose Hemoglobin A1c Calcium Ferritin Alkaline Phosphatase Lactate Dehydrogenase Total Creatine Kinase C-Reactive Protein Albumin 3.3 L Eielb-2-Hpdgzhiru Qtbns-4-Ttpdjnuqw Beta Globulins PEP Interpretation Urine Creatinine Complement C3 Complement C4 Coronavirus (PCR) 05/31/20 05/31/20 05/31/20 16:47 16:49 16:49 WBC RBC MCHC RDW Lymph % (Auto) Lymph # [place] # Seg Neutrophils % Seg Neuts % (Manual) Lymphocytes % (Manual) Seg Neutrophils # Seg Neutrophils # Man Lymphocytes # (Manual) Monocytes # (Manual) PT INR D-Dimer 738.85 H ABG pH POC ABG pCO2 POC ABG pO2 ABG pO2 ABG HCO3 ABG Base Excess ABG Hemoglobin ABG Oxyhemoglobin Carboxyhemoglobin Sodium Potassium Chloride Carbon Dioxide BUN Creatinine Glucose 258 H POC Glucose 239 H Hemoglobin A1c Calcium Ferritin Alkaline Phosphatase Lactate Dehydrogenase 409 H Total Creatine Kinase C-Reactive Protein 14.00 H Albumin Bhuxx-5-Qjtznlxnc Jgagc-0-Dqcvuslzg Beta Globulins PEP Interpretation Urine Creatinine Complement C3 Complement C4 Coronavirus (PCR) 05/31/20 05/31/20 06/01/20 16:49 16:49 10:15 WBC RBC MCHC RDW Lymph % (Auto) Lymph # [place] # Seg Neutrophils % Seg Neuts % (Manual) Lymphocytes % (Manual) Seg Neutrophils # Seg Neutrophils # Man Lymphocytes # (Manual) Monocytes # (Manual) PT INR D-Dimer ABG pH POC ABG pCO2 POC ABG pO2 ABG pO2 ABG HCO3 ABG Base Excess ABG Hemoglobin ABG Oxyhemoglobin Carboxyhemoglobin Sodium Potassium Chloride Carbon Dioxide BUN Creatinine Glucose POC Glucose 277 H Hemoglobin A1c 8.5 H Calcium Ferritin 599.0 H Alkaline Phosphatase Lactate Dehydrogenase Total Creatine Kinase C-Reactive Protein Albumin Btqcg-8-Zdtwhycrs Btevw-3-Vtqenqfur Beta Globulins PEP Interpretation Urine Creatinine Complement C3 Complement C4 Coronavirus (PCR) 06/01/20 06/01/20 06/01/20 13:41 13:41 16:10 WBC RBC MCHC RDW 15.3 H Lymph % (Auto) 8.4 L Lymph # 0.9 L [place] # Seg Neutrophils % 86.9 H Seg Neuts % (Manual) Lymphocytes % (Manual) Seg Neutrophils # 9.3 H Seg Neutrophils # Man Lymphocytes # (Manual) Monocytes # (Manual) PT INR D-Dimer ABG pH POC ABG pCO2 POC ABG pO2 ABG pO2 ABG HCO3 ABG Base Excess ABG Hemoglobin ABG Oxyhemoglobin Carboxyhemoglobin Sodium 136 L Potassium 5.5 H Chloride Carbon Dioxide 20 L BUN 42 H Creatinine 3.5 H Glucose 278 H POC Glucose 372 H Hemoglobin A1c Calcium Ferritin Alkaline Phosphatase Lactate Dehydrogenase Total Creatine Kinase C-Reactive Protein Albumin Blgju-3-Zhthwcgpt Ezmjf-2-Dbrmldobo Beta Globulins PEP Interpretation Urine Creatinine Complement C3 Complement C4 Coronavirus (PCR) 06/01/20 06/01/20 06/01/20 23:12 Unknown Unknown WBC RBC MCHC RDW Lymph % (Auto) Lymph # [place] # Seg Neutrophils % Seg Neuts % (Manual) Lymphocytes % (Manual) Seg Neutrophils # Seg Neutrophils # Man Lymphocytes # (Manual) Monocytes # (Manual) PT INR D-Dimer ABG pH POC ABG pCO2 POC ABG pO2 ABG pO2 ABG HCO3 ABG Base Excess ABG Hemoglobin ABG Oxyhemoglobin Carboxyhemoglobin Sodium Potassium Chloride Carbon Dioxide BUN Creatinine Glucose POC Glucose 398 H Hemoglobin A1c Calcium Ferritin Alkaline Phosphatase Lactate Dehydrogenase Total Creatine Kinase C-Reactive Protein Albumin Jhsts-8-Cwjhtgaxg Euqgz-4-Dussedcux Beta Globulins PEP Interpretation Urine Creatinine 161.6 H Complement C3 Complement C4 Coronavirus (PCR) Positive A 06/02/20 06/02/20 06/02/20 04:55 04:55 05:33 WBC 14.7 H RBC MCHC RDW 15.4 H Lymph % (Auto) 7.1 L Lymph # 1.1 L [place] # Seg Neutrophils % 89.3 H Seg Neuts % (Manual) Lymphocytes % (Manual) Seg Neutrophils # 13.2 H Seg Neutrophils # Man Lymphocytes # (Manual) Monocytes # (Manual) PT INR D-Dimer ABG pH POC ABG pCO2 POC ABG pO2 ABG pO2 ABG HCO3 ABG Base Excess ABG Hemoglobin ABG Oxyhemoglobin Carboxyhemoglobin Sodium 136 L Potassium Chloride 97.2 L Carbon Dioxide 21 L BUN 47 H Creatinine 3.5 H Glucose 244 H POC Glucose 262 H Hemoglobin A1c Calcium Ferritin Alkaline Phosphatase Lactate Dehydrogenase Total Creatine Kinase C-Reactive Protein Albumin 3.2 L Mvlxb-0-Yxlknvtao Lqodb-3-Ipcpbzngu Beta Globulins PEP Interpretation Urine Creatinine Complement C3 Complement C4 Coronavirus (PCR) 06/02/20 06/02/20 06/02/20 10:55 16:49 22:15 WBC RBC MCHC RDW Lymph % (Auto) Lymph # [place] # Seg Neutrophils % Seg Neuts % (Manual) Lymphocytes % (Manual) Seg Neutrophils # Seg Neutrophils # Man Lymphocytes # (Manual) Monocytes # (Manual) PT INR D-Dimer ABG pH POC ABG pCO2 POC ABG pO2 ABG pO2 ABG HCO3 ABG Base Excess ABG Hemoglobin ABG Oxyhemoglobin Carboxyhemoglobin Sodium Potassium Chloride Carbon Dioxide BUN Creatinine Glucose POC Glucose 160 H 214 H 292 H Hemoglobin A1c Calcium Ferritin Alkaline Phosphatase Lactate Dehydrogenase Total Creatine Kinase C-Reactive Protein Albumin Wwlrx-9-Jclowaael Kavcz-3-Jqdmagsnk Beta Globulins PEP Interpretation Urine Creatinine Complement C3 Complement C4 Coronavirus (PCR) 06/02/20 06/03/20 06/03/20 23:47 05:18 05:18 WBC 18.4 H RBC MCHC RDW 15.3 H Lymph % (Auto) Lymph # [place] # Seg Neutrophils % Seg Neuts % (Manual) 91.0 H Lymphocytes % (Manual) 8.0 L Seg Neutrophils # Seg Neutrophils # Man 16.7 H Lymphocytes # (Manual) Monocytes # (Manual) PT INR D-Dimer ABG pH POC ABG pCO2 POC ABG pO2 ABG pO2 ABG HCO3 ABG Base Excess ABG Hemoglobin ABG Oxyhemoglobin Carboxyhemoglobin Sodium Potassium Chloride Carbon Dioxide 20 L BUN 50 H Creatinine 3.1 H Glucose 248 H POC Glucose 292 H Hemoglobin A1c Calcium Ferritin Alkaline Phosphatase Lactate Dehydrogenase Total Creatine Kinase C-Reactive Protein Albumin 2.8 L Rpxqs-6-Taltdfoet Kovug-8-Uzrcetuvj Beta Globulins PEP Interpretation Urine Creatinine Complement C3 Complement C4 Coronavirus (PCR) 06/03/20 06/03/20 06/03/20 05:20 10:39 10:39 WBC RBC MCHC RDW Lymph % (Auto) Lymph # [place] # Seg Neutrophils % Seg Neuts % (Manual) Lymphocytes % (Manual) Seg Neutrophils # Seg Neutrophils # Man Lymphocytes # (Manual) Monocytes # (Manual) PT INR D-Dimer ABG pH POC ABG pCO2 POC ABG pO2 ABG pO2 ABG HCO3 ABG Base Excess ABG Hemoglobin ABG Oxyhemoglobin Carboxyhemoglobin Sodium Potassium Chloride Carbon Dioxide BUN Creatinine Glucose POC Glucose 208 H Hemoglobin A1c Calcium Ferritin Alkaline Phosphatase Lactate Dehydrogenase Total Creatine Kinase C-Reactive Protein Albumin Uysmu-6-Zvhpcfell Qxdot-3-Ctituuzno Beta Globulins PEP Interpretation Urine Creatinine Complement C3 223 H Complement C4 64 H Coronavirus (PCR) 06/03/20 06/03/20 06/03/20 11:40 13:06 16:58 WBC RBC MCHC RDW Lymph % (Auto) Lymph # [place] # Seg Neutrophils % Seg Neuts % (Manual) Lymphocytes % (Manual) Seg Neutrophils # Seg Neutrophils # Man Lymphocytes # (Manual) Monocytes # (Manual) PT INR D-Dimer ABG pH POC ABG pCO2 POC ABG pO2 ABG pO2 ABG HCO3 ABG Base Excess ABG Hemoglobin ABG Oxyhemoglobin Carboxyhemoglobin Sodium Potassium Chloride Carbon Dioxide BUN Creatinine Glucose POC Glucose 180 H 167 H 152 H Hemoglobin A1c Calcium Ferritin Alkaline Phosphatase Lactate Dehydrogenase Total Creatine Kinase C-Reactive Protein Albumin Clqwf-8-Orfkzppze Jcbzb-3-Mmurevcpe Beta Globulins PEP Interpretation Urine Creatinine Complement C3 Complement C4 Coronavirus (PCR) 06/04/20 06/04/20 06/04/20 00:07 04:17 04:17 WBC 20.8 H RBC 5.20 H MCHC RDW 15.7 H Lymph % (Auto) Lymph # [place] # Seg Neutrophils % Seg Neuts % (Manual) 91.0 H Lymphocytes % (Manual) 4.0 L Seg Neutrophils # Seg Neutrophils # Man 18.9 H Lymphocytes # (Manual) 0.8 L Monocytes # (Manual) 1.0 H PT INR D-Dimer ABG pH POC ABG pCO2 POC ABG pO2 ABG pO2 ABG HCO3 ABG Base Excess ABG Hemoglobin ABG Oxyhemoglobin Carboxyhemoglobin Sodium 135 L Potassium 5.1 H Chloride 97.8 L Carbon Dioxide 20 L BUN 56 H Creatinine 3.1 H Glucose 178 H POC Glucose 206 H Hemoglobin A1c Calcium Ferritin Alkaline Phosphatase Lactate Dehydrogenase Total Creatine Kinase C-Reactive Protein Albumin 3.0 L Kxsad-6-Vcwtrhzgu Glyud-2-Icfsdwekz Beta Globulins PEP Interpretation Urine Creatinine Complement C3 Complement C4 Coronavirus (PCR) 06/04/20 06/04/20 06/04/20 04:17 05:35 11:08 WBC RBC MCHC RDW Lymph % (Auto) Lymph # [place] # Seg Neutrophils % Seg Neuts % (Manual) Lymphocytes % (Manual) Seg Neutrophils # Seg Neutrophils # Man Lymphocytes # (Manual) Monocytes # (Manual) PT INR D-Dimer ABG pH POC ABG pCO2 POC ABG pO2 ABG pO2 ABG HCO3 ABG Base Excess ABG Hemoglobin ABG Oxyhemoglobin Carboxyhemoglobin Sodium Potassium Chloride Carbon Dioxide BUN Creatinine Glucose POC Glucose 166 H 159 H Hemoglobin A1c Calcium Ferritin Alkaline Phosphatase Lactate Dehydrogenase Total Creatine Kinase C-Reactive Protein Albumin 2.6 L Wfzhm-8-Jiqxyodfa 0.5 H Itlug-3-Rlspekraq 1.6 H Beta Globulins 0.6 H PEP Interpretation see below H Urine Creatinine Complement C3 Complement C4 Coronavirus (PCR) 06/04/20 06/05/20 06/05/20 18:06 00:22 04:56 WBC 20.2 H RBC MCHC RDW 15.6 H Lymph % (Auto) 4.7 L Lymph # 0.9 L [place] # 1.0 H Seg Neutrophils % Seg Neuts % (Manual) Lymphocytes % (Manual) Seg Neutrophils # 18.2 H Seg Neutrophils # Man Lymphocytes # (Manual) Monocytes # (Manual) PT INR D-Dimer ABG pH POC ABG pCO2 POC ABG pO2 ABG pO2 ABG HCO3 ABG Base Excess ABG Hemoglobin ABG Oxyhemoglobin Carboxyhemoglobin Sodium Potassium Chloride Carbon Dioxide BUN Creatinine Glucose POC Glucose 190 H 234 H Hemoglobin A1c Calcium Ferritin Alkaline Phosphatase Lactate Dehydrogenase Total Creatine Kinase C-Reactive Protein Albumin Cxerr-0-Nkuompseu Lknfw-9-Fzcnxmcma Beta Globulins PEP Interpretation Urine Creatinine Complement C3 Complement C4 Coronavirus (PCR) 06/05/20 06/05/20 06/05/20 04:56 05:43 09:27 WBC RBC MCHC RDW Lymph % (Auto) Lymph # [place] # Seg Neutrophils % Seg Neuts % (Manual) Lymphocytes % (Manual) Seg Neutrophils # Seg Neutrophils # Man Lymphocytes # (Manual) Monocytes # (Manual) PT INR D-Dimer ABG pH POC ABG pCO2 POC ABG pO2 ABG pO2 ABG HCO3 ABG Base Excess ABG Hemoglobin ABG Oxyhemoglobin Carboxyhemoglobin Sodium Potassium Chloride Carbon Dioxide 21 L BUN 63 H Creatinine 3.0 H Glucose 170 H POC Glucose 156 H 106 H Hemoglobin A1c Calcium Ferritin Alkaline Phosphatase Lactate Dehydrogenase Total Creatine Kinase C-Reactive Protein Albumin 3.0 L Rhkrm-8-Kgwwawwih Zfohv-5-Ipatkxffh Beta Globulins PEP Interpretation Urine Creatinine Complement C3 Complement C4 Coronavirus (PCR) 06/05/20 06/05/20 06/06/20 15:50 23:36 10:31 WBC 18.3 H RBC MCHC RDW 15.6 H Lymph % (Auto) Lymph # [place] # Seg Neutrophils % Seg Neuts % (Manual) 90.0 H Lymphocytes % (Manual) 6.0 L Seg Neutrophils # Seg Neutrophils # Man 16.5 H Lymphocytes # (Manual) 1.1 L Monocytes # (Manual) PT INR D-Dimer ABG pH POC ABG pCO2 POC ABG pO2 ABG pO2 ABG HCO3 ABG Base Excess ABG Hemoglobin ABG Oxyhemoglobin Carboxyhemoglobin Sodium Potassium Chloride Carbon Dioxide BUN Creatinine Glucose POC Glucose 197 H 193 H Hemoglobin A1c Calcium Ferritin Alkaline Phosphatase Lactate Dehydrogenase Total Creatine Kinase C-Reactive Protein Albumin Fzslw-4-Oimgyubep Pxvuu-7-Abgcxqtqo Beta Globulins PEP Interpretation Urine Creatinine Complement C3 Complement C4 Coronavirus (PCR) 06/06/20 06/06/20 06/06/20 10:31 12:34 17:34 WBC RBC MCHC RDW Lymph % (Auto) Lymph # [place] # Seg Neutrophils % Seg Neuts % (Manual) Lymphocytes % (Manual) Seg Neutrophils # Seg Neutrophils # Man Lymphocytes # (Manual) Monocytes # (Manual) PT INR D-Dimer ABG pH POC ABG pCO2 POC ABG pO2 ABG pO2 ABG HCO3 ABG Base Excess ABG Hemoglobin ABG Oxyhemoglobin Carboxyhemoglobin Sodium Potassium Chloride Carbon Dioxide BUN 65 H Creatinine 2.7 H Glucose 61 L POC Glucose 50 L 117 H Hemoglobin A1c Calcium Ferritin Alkaline Phosphatase Lactate Dehydrogenase Total Creatine Kinase C-Reactive Protein Albumin Vdzhw-1-Bznutigwl Wifib-4-Zwoxnozut Beta Globulins PEP Interpretation Urine Creatinine Complement C3 Complement C4 Coronavirus (PCR) 06/07/20 06/07/20 06/07/20 04:40 04:40 06:07 WBC 16.3 H RBC MCHC RDW 15.6 H Lymph % (Auto) 4.9 L Lymph # 0.8 L [place] # 0.9 H Seg Neutrophils % 89.3 H Seg Neuts % (Manual) Lymphocytes % (Manual) Seg Neutrophils # 14.6 H Seg Neutrophils # Man Lymphocytes # (Manual) Monocytes # (Manual) PT INR D-Dimer ABG pH POC ABG pCO2 POC ABG pO2 ABG pO2 ABG HCO3 ABG Base Excess ABG Hemoglobin ABG Oxyhemoglobin Carboxyhemoglobin Sodium Potassium 5.1 H D Chloride Carbon Dioxide BUN 67 H Creatinine 2.6 H Glucose 52 L POC Glucose 45 L Hemoglobin A1c Calcium Ferritin Alkaline Phosphatase Lactate Dehydrogenase Total Creatine Kinase C-Reactive Protein Albumin Omzpp-1-Ewfyqoxgg Cguci-7-Wsyzikdib Beta Globulins PEP Interpretation Urine Creatinine Complement C3 Complement C4 Coronavirus (PCR) 06/07/20 06/07/20 06/07/20 10:34 10:49 12:26 WBC RBC MCHC RDW Lymph % (Auto) Lymph # [place] # Seg Neutrophils % Seg Neuts % (Manual) Lymphocytes % (Manual) Seg Neutrophils # Seg Neutrophils # Man Lymphocytes # (Manual) Monocytes # (Manual) PT INR D-Dimer ABG pH POC ABG pCO2 POC ABG pO2 ABG pO2 ABG HCO3 ABG Base Excess ABG Hemoglobin ABG Oxyhemoglobin Carboxyhemoglobin Sodium Potassium Chloride Carbon Dioxide BUN Creatinine Glucose POC Glucose 57 L 54 L 192 H Hemoglobin A1c Calcium Ferritin Alkaline Phosphatase Lactate Dehydrogenase Total Creatine Kinase C-Reactive Protein Albumin Ggems-2-Qfpqxbhwv Prsfq-0-Zgokvlkrv Beta Globulins PEP Interpretation Urine Creatinine Complement C3 Complement C4 Coronavirus (PCR) 06/07/20 06/08/20 06/08/20 17:42 00:12 04:52 WBC 18.8 H RBC MCHC RDW 15.6 H Lymph % (Auto) 4.6 L Lymph # 0.9 L [place] # 1.0 H Seg Neutrophils % 89.7 H Seg Neuts % (Manual) Lymphocytes % (Manual) Seg Neutrophils # 16.9 H Seg Neutrophils # Man Lymphocytes # (Manual) Monocytes # (Manual) PT INR D-Dimer ABG pH POC ABG pCO2 POC ABG pO2 ABG pO2 ABG HCO3 ABG Base Excess ABG Hemoglobin ABG Oxyhemoglobin Carboxyhemoglobin Sodium Potassium Chloride Carbon Dioxide BUN Creatinine Glucose POC Glucose 241 H 285 H Hemoglobin A1c Calcium Ferritin Alkaline Phosphatase Lactate Dehydrogenase Total Creatine Kinase C-Reactive Protein Albumin Uuhzt-5-Wlevpmvbr Istbd-4-Ohwhwfzrj Beta Globulins PEP Interpretation Urine Creatinine Complement C3 Complement C4 Coronavirus (PCR) 06/08/20 06/08/20 06/08/20 04:52 05:41 12:44 WBC RBC MCHC RDW Lymph % (Auto) Lymph # [place] # Seg Neutrophils % Seg Neuts % (Manual) Lymphocytes % (Manual) Seg Neutrophils # Seg Neutrophils # Man Lymphocytes # (Manual) Monocytes # (Manual) PT INR D-Dimer ABG pH POC ABG pCO2 POC ABG pO2 ABG pO2 ABG HCO3 ABG Base Excess ABG Hemoglobin ABG Oxyhemoglobin Carboxyhemoglobin Sodium Potassium Chloride Carbon Dioxide BUN 66 H Creatinine 2.6 H Glucose 175 H POC Glucose 177 H 172 H Hemoglobin A1c Calcium Ferritin Alkaline Phosphatase Lactate Dehydrogenase Total Creatine Kinase C-Reactive Protein Albumin Heybl-7-Befwotbst Xtpto-3-Yodpltwuk Beta Globulins PEP Interpretation Urine Creatinine Complement C3 Complement C4 Coronavirus (PCR) 06/08/20 06/08/20 06/09/20 18:18 23:39 01:03 WBC 19.6 H RBC MCHC 36 H RDW 15.5 H Lymph % (Auto) 5.3 L Lymph # 1.0 L [place] # Seg Neutrophils % Seg Neuts % (Manual) Lymphocytes % (Manual) Seg Neutrophils # 17.7 H Seg Neutrophils # Man Lymphocytes # (Manual) Monocytes # (Manual) PT INR D-Dimer ABG pH POC ABG pCO2 POC ABG pO2 ABG pO2 ABG HCO3 ABG Base Excess ABG Hemoglobin ABG Oxyhemoglobin Carboxyhemoglobin Sodium Potassium Chloride Carbon Dioxide BUN Creatinine Glucose POC Glucose 251 H 196 H Hemoglobin A1c Calcium Ferritin Alkaline Phosphatase Lactate Dehydrogenase Total Creatine Kinase C-Reactive Protein Albumin Bfnif-5-Uhzjjkmhl Mdjuw-4-Oncjbifkc Beta Globulins PEP Interpretation Urine Creatinine Complement C3 Complement C4 Coronavirus (PCR) 06/09/20 06/09/20 06/09/20 01:03 05:42 06:02 WBC RBC MCHC RDW Lymph % (Auto) Lymph # [place] # Seg Neutrophils % Seg Neuts % (Manual) Lymphocytes % (Manual) Seg Neutrophils # Seg Neutrophils # Man Lymphocytes # (Manual) Monocytes # (Manual) PT INR D-Dimer ABG pH POC ABG pCO2 POC ABG pO2 ABG pO2 ABG HCO3 ABG Base Excess ABG Hemoglobin ABG Oxyhemoglobin Carboxyhemoglobin Sodium 136 L Potassium Chloride Carbon Dioxide 20 L 20 L BUN 68 H 66 H Creatinine 2.7 H 2.7 H Glucose 180 H 141 H POC Glucose 136 H Hemoglobin A1c Calcium 8.3 L Ferritin Alkaline Phosphatase Lactate Dehydrogenase Total Creatine Kinase C-Reactive Protein Albumin 2.6 L Pkgne-4-Sefyazjyk Gggki-1-Bwpeokivf Beta Globulins PEP Interpretation Urine Creatinine Complement C3 Complement C4 Coronavirus (PCR) 06/09/20 06/09/20 06/09/20 09:21 09:21 09:21 WBC RBC MCHC RDW Lymph % (Auto) Lymph # [place] # Seg Neutrophils % Seg Neuts % (Manual) Lymphocytes % (Manual) Seg Neutrophils # Seg Neutrophils # Man Lymphocytes # (Manual) Monocytes # (Manual) PT INR D-Dimer > 29198 H ABG pH POC ABG pCO2 POC ABG pO2 ABG pO2 ABG HCO3 ABG Base Excess ABG Hemoglobin ABG Oxyhemoglobin Carboxyhemoglobin Sodium Potassium Chloride Carbon Dioxide BUN Creatinine Glucose 195 H POC Glucose Hemoglobin A1c Calcium Ferritin 1045.0 H Alkaline Phosphatase Lactate Dehydrogenase 461 H Total Creatine Kinase C-Reactive Protein 9.30 H Albumin Ddvxb-6-Dvcbqyybl Ncvjs-4-Uqtfzwrel Beta Globulins PEP Interpretation Urine Creatinine Complement C3 Complement C4 Coronavirus (PCR) 06/09/20 06/09/20 06/09/20 10:26 17:30 22:22 WBC RBC MCHC RDW Lymph % (Auto) Lymph # [place] # Seg Neutrophils % Seg Neuts % (Manual) Lymphocytes % (Manual) Seg Neutrophils # Seg Neutrophils # Man Lymphocytes # (Manual) Monocytes # (Manual) PT INR D-Dimer ABG pH POC ABG pCO2 POC ABG pO2 ABG pO2 ABG HCO3 ABG Base Excess ABG Hemoglobin ABG Oxyhemoglobin Carboxyhemoglobin Sodium Potassium Chloride Carbon Dioxide BUN Creatinine Glucose POC Glucose 178 H 219 H 167 H Hemoglobin A1c Calcium Ferritin Alkaline Phosphatase Lactate Dehydrogenase Total Creatine Kinase C-Reactive Protein Albumin Leubu-1-Efpmpvifv Cpmyr-7-Plcceknyh Beta Globulins PEP Interpretation Urine Creatinine Complement C3 Complement C4 Coronavirus (PCR) 06/10/20 06/10/20 06/10/20 00:34 00:34 04:42 WBC 18.6 H RBC MCHC RDW 15.6 H Lymph % (Auto) Lymph # [place] # Seg Neutrophils % Seg Neuts % (Manual) 94.0 H Lymphocytes % (Manual) 2.0 L Seg Neutrophils # Seg Neutrophils # Man 17.5 H Lymphocytes # (Manual) 0.4 L Monocytes # (Manual) PT INR D-Dimer ABG pH POC ABG pCO2 POC ABG pO2 ABG pO2 ABG HCO3 ABG Base Excess ABG Hemoglobin ABG Oxyhemoglobin Carboxyhemoglobin Sodium Potassium 5.5 H 6.0 H Chloride Carbon Dioxide 21 L 19 L BUN 70 H 68 H Creatinine 2.6 H 2.8 H Glucose 177 H 185 H POC Glucose Hemoglobin A1c Calcium Ferritin Alkaline Phosphatase 134 H Lactate Dehydrogenase Total Creatine Kinase C-Reactive Protein Albumin 2.9 L Dyaem-5-Mpvumdcfa Ggqgb-4-Djzgqeblr Beta Globulins PEP Interpretation Urine Creatinine Complement C3 Complement C4 Coronavirus (PCR) 06/10/20 06/10/20 06/10/20 05:54 11:04 13:18 WBC RBC MCHC RDW Lymph % (Auto) Lymph # [place] # Seg Neutrophils % Seg Neuts % (Manual) Lymphocytes % (Manual) Seg Neutrophils # Seg Neutrophils # Man Lymphocytes # (Manual) Monocytes # (Manual) PT INR D-Dimer ABG pH POC ABG pCO2 31.7 L POC ABG pO2 57.9 L ABG pO2 ABG HCO3 ABG Base Excess ABG Hemoglobin ABG Oxyhemoglobin Carboxyhemoglobin Sodium Potassium Chloride Carbon Dioxide BUN Creatinine Glucose POC Glucose 171 H 243 H Hemoglobin A1c Calcium Ferritin Alkaline Phosphatase Lactate Dehydrogenase Total Creatine Kinase C-Reactive Protein Albumin Xbkof-8-Myuqjwtug Xnmts-3-Wacympdtd Beta Globulins PEP Interpretation Urine Creatinine Complement C3 Complement C4 Coronavirus (PCR) 06/10/20 06/11/20 06/11/20 17:28 00:14 00:14 WBC 21.1 H RBC MCHC RDW 15.4 H Lymph % (Auto) Lymph # [place] # Seg Neutrophils % Seg Neuts % (Manual) 93.0 H Lymphocytes % (Manual) 5.0 L Seg Neutrophils # Seg Neutrophils # Man 19.6 H Lymphocytes # (Manual) 1.1 L Monocytes # (Manual) PT INR D-Dimer ABG pH POC ABG pCO2 POC ABG pO2 ABG pO2 ABG HCO3 ABG Base Excess ABG Hemoglobin ABG Oxyhemoglobin Carboxyhemoglobin Sodium Potassium Chloride Carbon Dioxide 18 L BUN 73 H Creatinine 2.7 H Glucose 216 H POC Glucose 265 H Hemoglobin A1c Calcium Ferritin Alkaline Phosphatase 134 H Lactate Dehydrogenase Total Creatine Kinase C-Reactive Protein Albumin 2.7 L Lftfz-8-Muetatiqh Dgknv-1-Yvcyqwwlq Beta Globulins PEP Interpretation Urine Creatinine Complement C3 Complement C4 Coronavirus (PCR) 06/11/20 06/11/20 06/11/20 05:27 13:14 17:27 WBC RBC MCHC RDW Lymph % (Auto) Lymph # [place] # Seg Neutrophils % Seg Neuts % (Manual) Lymphocytes % (Manual) Seg Neutrophils # Seg Neutrophils # Man Lymphocytes # (Manual) Monocytes # (Manual) PT INR D-Dimer ABG pH POC ABG pCO2 POC ABG pO2 ABG pO2 ABG HCO3 ABG Base Excess ABG Hemoglobin ABG Oxyhemoglobin Carboxyhemoglobin Sodium Potassium Chloride Carbon Dioxide BUN Creatinine Glucose POC Glucose 241 H 273 H 317 H Hemoglobin A1c Calcium Ferritin Alkaline Phosphatase Lactate Dehydrogenase Total Creatine Kinase C-Reactive Protein Albumin Erwtd-0-Ssqkncpvy Ovbha-0-Oizjhmryx Beta Globulins PEP Interpretation Urine Creatinine Complement C3 Complement C4 Coronavirus (PCR) 06/11/20 06/11/20 06/11/20 18:21 22:13 23:47 WBC RBC MCHC RDW Lymph % (Auto) Lymph # [place] # Seg Neutrophils % Seg Neuts % (Manual) Lymphocytes % (Manual) Seg Neutrophils # Seg Neutrophils # Man Lymphocytes # (Manual) Monocytes # (Manual) PT INR D-Dimer ABG pH POC ABG pCO2 POC ABG pO2 ABG pO2 ABG HCO3 ABG Base Excess ABG Hemoglobin ABG Oxyhemoglobin Carboxyhemoglobin Sodium Potassium Chloride Carbon Dioxide BUN Creatinine Glucose POC Glucose 350 H 317 H 303 H Hemoglobin A1c Calcium Ferritin Alkaline Phosphatase Lactate Dehydrogenase Total Creatine Kinase C-Reactive Protein Albumin Xqaca-4-Wnffeqjfx Noxcc-6-Auxblfoui Beta Globulins PEP Interpretation Urine Creatinine Complement C3 Complement C4 Coronavirus (PCR) 06/12/20 06/12/20 06/12/20 05:34 05:34 06:17 WBC 25.2 H RBC 5.14 H MCHC RDW 15.5 H Lymph % (Auto) Lymph # [place] # Seg Neutrophils % Seg Neuts % (Manual) 93.0 H Lymphocytes % (Manual) 2.0 L Seg Neutrophils # Seg Neutrophils # Man 23.4 H Lymphocytes # (Manual) 0.5 L Monocytes # (Manual) 1.3 H PT INR D-Dimer ABG pH POC ABG pCO2 POC ABG pO2 ABG pO2 ABG HCO3 ABG Base Excess ABG Hemoglobin ABG Oxyhemoglobin Carboxyhemoglobin Sodium 148 H Potassium Chloride 108.7 H Carbon Dioxide 19 L BUN 88 H Creatinine 3.7 H Glucose 314 H POC Glucose 281 H Hemoglobin A1c Calcium Ferritin Alkaline Phosphatase Lactate Dehydrogenase Total Creatine Kinase C-Reactive Protein Albumin Xxnom-6-Xfophvqds Haxwx-1-Hxbpgpiwt Beta Globulins PEP Interpretation Urine Creatinine Complement C3 Complement C4 Coronavirus (PCR) 06/12/20 06/12/20 06/12/20 09:32 11:38 13:17 WBC RBC MCHC RDW Lymph % (Auto) Lymph # [place] # Seg Neutrophils % Seg Neuts % (Manual) Lymphocytes % (Manual) Seg Neutrophils # Seg Neutrophils # Man Lymphocytes # (Manual) Monocytes # (Manual) PT INR D-Dimer ABG pH 7.056 L POC ABG pCO2 30.5 L 88.1 H POC ABG pO2 49.5 L ABG pO2 ABG HCO3 ABG Base Excess ABG Hemoglobin ABG Oxyhemoglobin 92.7 L Carboxyhemoglobin 0.1 L Sodium Potassium Chloride Carbon Dioxide BUN Creatinine Glucose POC Glucose 353 H Hemoglobin A1c Calcium Ferritin Alkaline Phosphatase Lactate Dehydrogenase Total Creatine Kinase C-Reactive Protein Albumin Pdtfh-3-Qsosferib Cmhzh-8-Pkfjrytun Beta Globulins PEP Interpretation Urine Creatinine Complement C3 Complement C4 Coronavirus (PCR) 06/12/20 06/12/20 06/13/20 17:45 23:53 03:30 WBC RBC MCHC RDW Lymph % (Auto) Lymph # [place] # Seg Neutrophils % Seg Neuts % (Manual) Lymphocytes % (Manual) Seg Neutrophils # Seg Neutrophils # Man Lymphocytes # (Manual) Monocytes # (Manual) PT INR D-Dimer ABG pH 7.091 L* POC ABG pCO2 POC ABG pO2 ABG pO2 172.6 H ABG HCO3 ABG Base Excess -7.3 L ABG Hemoglobin ABG Oxyhemoglobin Carboxyhemoglobin Sodium Potassium Chloride Carbon Dioxide BUN Creatinine Glucose POC Glucose 348 H 279 H Hemoglobin A1c Calcium Ferritin Alkaline Phosphatase Lactate Dehydrogenase Total Creatine Kinase C-Reactive Protein Albumin Pjubn-4-Nmpvydtla Jgwrj-8-Emhxdltlu Beta Globulins PEP Interpretation Urine Creatinine Complement C3 Complement C4 Coronavirus (PCR) 06/13/20 06/13/20 06/13/20 05:06 05:06 06:03 WBC 30.3 H RBC MCHC RDW 16.0 H Lymph % (Auto) 2.4 L Lymph # 0.7 L [place] # 1.6 H Seg Neutrophils % Seg Neuts % (Manual) Lymphocytes % (Manual) Seg Neutrophils # 27.9 H Seg Neutrophils # Man Lymphocytes # (Manual) Monocytes # (Manual) PT INR D-Dimer ABG pH POC ABG pCO2 POC ABG pO2 ABG pO2 ABG HCO3 ABG Base Excess ABG Hemoglobin ABG Oxyhemoglobin Carboxyhemoglobin Sodium 148 H Potassium 8.8 H* D Chloride 109.5 H Carbon Dioxide BUN 118 H Creatinine 6.4 H D Glucose 272 H POC Glucose 285 H Hemoglobin A1c Calcium 7.7 L D Ferritin Alkaline Phosphatase Lactate Dehydrogenase Total Creatine Kinase C-Reactive Protein Albumin 2.5 L Cewud-7-Tcrgqcilz Wjubg-1-Xcrfbrokk Beta Globulins PEP Interpretation Urine Creatinine Complement C3 Complement C4 Coronavirus (PCR) 06/13/20 06/13/20 06/13/20 12:15 16:06 17:12 WBC RBC MCHC RDW Lymph % (Auto) Lymph # [place] # Seg Neutrophils % Seg Neuts % (Manual) Lymphocytes % (Manual) Seg Neutrophils # Seg Neutrophils # Man Lymphocytes # (Manual) Monocytes # (Manual) PT INR D-Dimer ABG pH POC ABG pCO2 POC ABG pO2 ABG pO2 ABG HCO3 ABG Base Excess ABG Hemoglobin ABG Oxyhemoglobin Carboxyhemoglobin Sodium 146 H Potassium Chloride Carbon Dioxide BUN 68 H Creatinine 4.5 H Glucose 298 H POC Glucose 288 H 260 H Hemoglobin A1c Calcium 7.2 L Ferritin Alkaline Phosphatase Lactate Dehydrogenase Total Creatine Kinase C-Reactive Protein Albumin [place]-7-Cixnblpls Hivxl-2-Baexiogoc Beta Globulins PEP Interpretation Urine Creatinine Complement C3 Complement C4 Coronavirus (PCR) 06/14/20 06/14/20 06/14/20 00:13 04:44 05:30 WBC RBC MCHC RDW Lymph % (Auto) Lymph # [place] # Seg Neutrophils % Seg Neuts % (Manual) Lymphocytes % (Manual) Seg Neutrophils # Seg Neutrophils # Man Lymphocytes # (Manual) Monocytes # (Manual) PT INR D-Dimer ABG pH POC ABG pCO2 POC ABG pO2 ABG pO2 ABG HCO3 ABG Base Excess ABG Hemoglobin ABG Oxyhemoglobin Carboxyhemoglobin Sodium Potassium Chloride Carbon Dioxide BUN 88 H Creatinine 6.0 H Glucose 254 H POC Glucose 279 H 253 H Hemoglobin A1c Calcium 6.8 L Ferritin Alkaline Phosphatase Lactate Dehydrogenase Total Creatine Kinase C-Reactive Protein Albumin Abhwi-7-Mhczivfdg Vntwn-1-Qtbrksqll Beta Globulins PEP Interpretation Urine Creatinine Complement C3 Complement C4 Coronavirus (PCR) 06/14/20 06:00 WBC RBC MCHC RDW Lymph % (Auto) Lymph # [place] # Seg Neutrophils % Seg Neuts % (Manual) Lymphocytes % (Manual) Seg Neutrophils # Seg Neutrophils # Man Lymphocytes # (Manual) Monocytes # (Manual) PT INR D-Dimer ABG pH 7.270 L POC ABG pCO2 POC ABG pO2 ABG pO2 163.1 H ABG HCO3 29.6 H ABG Base Excess ABG Hemoglobin 5.5 L ABG Oxyhemoglobin Carboxyhemoglobin Sodium Potassium Chloride Carbon Dioxide BUN Creatinine Glucose POC Glucose Hemoglobin A1c Calcium Ferritin Alkaline Phosphatase Lactate Dehydrogenase Total Creatine Kinase C-Reactive Protein Albumin Jbfwd-7-Nlfxfoqpe Vdpft-8-Ygkqlffzs Beta Globulins PEP Interpretation Urine Creatinine Complement C3 Complement C4 Coronavirus (PCR)
--- NOTE | 2020-06-14 12:37 | Progress Note ---
Assessment and Plan 1. Acute kidney injury: KEITH superimposed on CKD stage 3 in the setting of severe COVID infection. Renal US pending. UA results noted. Monitor renal function. Avoid nephrotoxic agents. Meds dosage based on GFR. Monitor for [employer] needs. Patient required hemodialysis due to worsening renal function and hyperkalemia. Explained patient's (06/13) the indications, benefits, risks and alternatives involved in hemodialysis. She voiced understanding and gave consent to proceed. Hemodialysis: 06/13, 06/14. 2. FEN: Hyperkalemia, improved, HD today, monitor. Metabolic acidosis, improved, monitor. Monitor lytes and volume status. 3. Acute hypoxic respiratory failure: / COVID-19 PNA. Intubated 06/12. Followed by Pulmonary. 4. Bilateral COVID-19 PNA: Followed by ID. 5. S/p Cardiac arrest, 06/13: Monitor. 6. Shock: On Levophed. 7. A.fib with RVR: On Amiodarone. 8. DM with hyperglycemia: Accu-Check, sliding scale coverage, ADA diet. - Subjective: Patient was seen and examined from bedside. In ICU. - General Appearance General appearance: well-developed, appears stated age, no distress noted, intubated, on vent HEENT: ATNC Neck: Trachea midline Respiratory: MV sounds Heart: S1S2, no murmurs Gastrointestinal: soft, bowel sounds heard Integumentary: no rash, warm and dry Ext: no edema Neurologic: sedated Subjective Date of service: 06/14/20 Principal diagnosis: COVID-19 PNA, AF RVR Objective - Vital Signs Vital signs: Vital Signs - 12hr 06/14/20 06/14/20 06/14/20 00:45 01:00 01:16 Temperature Pulse Rate 101 H 101 H 97 H Pulse Rate [ From Monitor] Respiratory 40 H 40 H 40 H Rate Blood Pressure 105/65 118/67 84/45 O2 Sat by Pulse 99 97 93 Oximetry 06/14/20 06/14/20 06/14/20 01:30 01:45 02:00 Temperature Pulse Rate 98 H 99 H 100 H Pulse Rate [ From Monitor] Respiratory 40 H 18 17 Rate Blood Pressure 79/43 97/60 103/64 O2 Sat by Pulse 95 95 95 Oximetry 06/14/20 06/14/20 06/14/20 02:15 02:30 02:45 Temperature Pulse Rate 99 H 95 H 93 H Pulse Rate [ From Monitor] Respiratory 38 H 32 H 24 Rate Blood Pressure 94/34 71/40 89/65 O2 Sat by Pulse 92 92 98 Oximetry 06/14/20 06/14/20 06/14/20 03:00 03:15 03:22 Temperature 100.1 F H Pulse Rate 97 H 97 H Pulse Rate [ From Monitor] Respiratory 17 30 H Rate Blood Pressure 105/66 99/58 O2 Sat by Pulse 97 98 Oximetry 06/14/20 06/14/20 06/14/20 03:30 03:45 04:00 Temperature Pulse Rate 97 H 99 H 95 H Pulse Rate [ 97 H From Monitor] Respiratory 28 H 39 H 30 H Rate Blood Pressure 96/64 99/63 103/60 O2 Sat by Pulse 97 97 98 Oximetry 06/14/20 06/14/20 06/14/20 04:15 04:27 04:30 Temperature Pulse Rate 96 H 99 H 98 H Pulse Rate [ From Monitor] Respiratory 22 32 H Rate Blood Pressure 102/57 105/66 O2 Sat by Pulse 98 98 97 Oximetry 06/14/20 06/14/20 06/14/20 04:45 05:00 05:15 Temperature Pulse Rate 97 H 96 H 97 H Pulse Rate [ From Monitor] Respiratory 21 28 H 32 H Rate Blood Pressure 108/66 96/63 106/68 O2 Sat by Pulse 97 98 98 Oximetry 06/14/20 06/14/20 06/14/20 05:30 05:46 06:00 Temperature Pulse Rate 98 H 105 H 98 H Pulse Rate [ From Monitor] Respiratory 24 11 L 21 Rate Blood Pressure 103/67 129/88 106/73 O2 Sat by Pulse 98 79 L 100 Oximetry 06/14/20 06/14/20 06/14/20 06:15 06:30 06:45 Temperature Pulse Rate 94 H 94 H 91 H Pulse Rate [ From Monitor] Respiratory 20 23 26 H Rate Blood Pressure 123/75 114/70 112/76 O2 Sat by Pulse 100 100 100 Oximetry 06/14/20 06/14/20 06/14/20 07:00 07:15 07:30 Temperature Pulse Rate 94 H 89 88 Pulse Rate [ From Monitor] Respiratory 20 31 H 22 Rate Blood Pressure 97/56 126/77 121/76 O2 Sat by Pulse 100 100 100 Oximetry 06/14/20 06/14/20 06/14/20 07:45 08:00 08:15 Temperature 100 F H Pulse Rate 89 85 89 Pulse Rate [ From Monitor] Respiratory 29 H 28 H 26 H Rate Blood Pressure 121/77 134/80 128/77 O2 Sat by Pulse 100 100 100 Oximetry 06/14/20 06/14/20 06/14/20 08:23 08:30 08:46 Temperature Pulse Rate 87 88 94 H Pulse Rate [ From Monitor] Respiratory 30 H 32 H Rate Blood Pressure 129/77 116/76 129/70 O2 Sat by Pulse 100 100 98 Oximetry 06/14/20 06/14/20 06/14/20 09:00 09:15 09:30 Temperature Pulse Rate 97 H 94 H 92 H Pulse Rate [ From Monitor] Respiratory 32 H 34 H 33 H Rate Blood Pressure 141/92 135/81 134/79 O2 Sat by Pulse 97 96 95 Oximetry 06/14/20 06/14/20 06/14/20 09:45 10:00 10:15 Temperature Pulse Rate 93 H 93 H 97 H Pulse Rate [ From Monitor] Respiratory 33 H 32 H 33 H Rate Blood Pressure 130/83 118/82 115/85 O2 Sat by Pulse 96 94 95 Oximetry 06/14/20 06/14/20 06/14/20 10:30 10:45 11:00 Temperature Pulse Rate 94 H 95 H 100 H Pulse Rate [ From Monitor] Respiratory 32 H 33 H 35 H Rate Blood Pressure 122/78 114/71 102/68 O2 Sat by Pulse 93 92 90 Oximetry 06/14/20 06/14/20 06/14/20 11:15 11:30 11:45 Temperature Pulse Rate 99 H 103 H 101 H Pulse Rate [ From Monitor] Respiratory 37 H 36 H 37 H Rate Blood Pressure 88/62 99/64 115/71 O2 Sat by Pulse 85 93 94 Oximetry 06/14/20 06/14/20 06/14/20 12:00 12:15 12:30 Temperature 98.7 F Pulse Rate 100 H 101 H 101 H Pulse Rate [ From Monitor] Respiratory 37 H 37 H 37 H Rate Blood Pressure 100/63 81/54 88/60 O2 Sat by Pulse 93 94 91 Oximetry - Lab 06/13/20 05:06 06/14/20 04:44 Most recent lab results ABG pH 7.270 pH Units (7.350-7.450) L 06/14/20 06:00 ABG pCO2 65.8 mm Hg 06/14/20 06:00 ABG pO2 163.1 mm Hg (80.0-90.0) H 06/14/20 06:00 ABG HCO3 29.6 mmol/L (20.0-26.0) H 06/14/20 06:00 ABG O2 Saturation 98.8 % (95.0-99.0) 06/14/20 06:00 Calcium 6.8 mg/dL (8.4-10.2) L 06/14/20 04:44 Magnesium 2.20 mg/dL (1.7-2.3) 05/31/20 15:23 Urine Creatinine 161.6 mg/dL (0.1-20.0) H 06/01/20 Unknown Urine Sodium 47 mmol/L 06/01/20 Unknown Medications & Allergies - Medications Allergies/Adverse Reactions: Allergies lisinopril Allergy (Verified 05/31/20 13:03) Angioedema Penicillins Allergy (Verified 05/31/20 13:03) Hives Home Medications: Home Medications Medication Instructions Recorded Confirmed Last Taken Type Acetaminophen [Acetaminophen TAB] 650 mg PO Q4H PRN #30 tablet 02/15/17 Unknown Rx AtorvaSTATin [Lipitor] 20 mg PO QHS tablet 02/15/17 Unknown Rx Cipro/Dexameth 0.3/0.1% [Ciprodex 4 drops AU BID bottle 02/15/17 Unknown Rx OTIC] Detemir (Nf) [Levemir (Nf)] 100 units SUB-Q QHS units 02/15/17 Unknown Rx Dextrose 50% in Water [D50W (25GM) 50 ml IV PRN PRN #30 syringe 02/15/17 Unknown Rx Syringe] Enoxaparin 40 mg SUB-Q QDAY syringe 02/15/17 Unknown Rx Lipase/Protease/Amylase [Pancreaze 1 each FEEDTUBE PRN PRN #30 capsule 02/15/[address],500 Unit] Metoprolol [Lopressor TAB] 25 mg PO BID tablet 02/15/17 Unknown Rx Metoprolol [Lopressor TAB] 25 mg PO BID #60 tablet 02/15/17 Unknown Rx Ondansetron [Zofran INJ] 4 mg IV Q8H PRN #30 vial 02/15/17 Unknown Rx Prednisone [predniSONE 5 mg (6-Day 5 mg PO .TAPER #1 tab.ds.pk 02/15/17 Unknown Rx Pack, 21 Tabs)] Simple Syrup 15 ml FEEDTUBE PRN PRN #30 02/15/17 Unknown Rx oral.liqd Simple Syrup 30 ml FEEDTUBE PRN PRN #30 02/15/17 Unknown Rx oral.liqd Sodium Bicarbonate 325 mg FEEDTUBE PRN PRN #30 tablet 02/15/17 Unknown Rx amLODIPine 10 mg PO DAILY tablet 02/15/17 Unknown Rx amLODIPine [Norvasc] 10 mg PO DAILY #30 tab 02/15/17 Unknown Rx bisacodyL [Dulcolax suppos] 10 mg RI QDAY PRN #30 supp.rect 02/15/17 Unknown Rx chlorproMAZINE [Thorazine] 10 mg PO Q6H PRN #30 tablet 02/15/17 Unknown Rx dexAMETHasone [Decadron] 6 mg IV Q6HR vial 02/15/17 Unknown Rx hydrALAZINE [Apresoline INJ] 10 mg IV Q6HR PRN #30 vial 02/15/17 Unknown Rx oxyCODONE /ACETAMINOPHEN [Percocet 1 tab PO Q4H PRN #30 tablet 02/15/17 Unknown Rx 5/325 mg] oxyCODONE /ACETAMINOPHEN [Percocet 1 tab PO Q4HR #30 tab 02/15/17 Unknown Rx 5/325] tiZANidine [Zanaflex 4mg TAB] 4 mg PO Q8H PRN #30 tablet 02/15/17 Unknown Rx Permethrin 5% [Acticin 5% CREAM] 1 applicatio TP ONCE #1 tube 06/11/17 Unknown Rx Azithromycin [Zithromax Z-BENJIE] 250 mg PO DAILY 1 Days tab 11/23/18 Unknown Rx Ondansetron [Zofran Odt] 4 mg PO Q8HR PRN #14 tab.rapdis 11/23/18 Unknown Rx traMADoL [Ultram 50 MG tab] 50 mg PO Q4HR PRN #14 tablet 11/23/18 Unknown Rx Active Medications: Generic Name Dose Route Start Last Admin Trade Name Freq PRN Reason Stop Dose Admin Acetaminophen 650 mg 05/31/20 15:49 06/14/20 00:42 Tylenol PO 650 mg Q6H PRN Administration Pain MILD(1-3)/Fever >100.5/LEBRON Albuterol 2.5 mg 05/31/20 15:49 Proventil IH Q3HRT PRN Shortness Of Breath Atorvastatin Calcium 20 mg 05/31/20 22:00 06/13/20 21:40 Lipitor PO 20 mg QHS CHERI Administration Bisacodyl 10 mg 05/31/20 15:57 Dulcolax RI QDAY PRN Constipation unrelieved by MOM Chlorpromazine HCl 10 mg 05/31/20 15:57 Thorazine PO Q6H PRN Hiccups Dextrose 50 ml 05/31/20 15:59 06/07/20 10:48 D50w (25gm) Syringe IV 20 ml Q30MIN PRN Administration Hypoglycemia Protocol Enoxaparin Sodium 100 mg 06/10/20 10:00 06/14/20 09:37 Enoxaparin SUB-Q 100 mg Q24HR CHERI Administration Famotidine 20 mg 06/15/20 10:00 Pepcid PO DAILY CHERI Fentanyl 25 mcg 06/14/20 11:26 Sublimaze IV Q2H PRN RESPIRATORY DISTRESS Hydrophilic Ointment 1 applic 06/12/20 12:11 Vaseline Lip Therapy TP Q2HR PRN Dry Lips Amiodarone HCl 900 mg/ 500 mls @ 33.333 mls/hr 06/11/20 11:30 06/13/20 15:09 Dextrose IV 0.5 mg/min DIRECT CHERI 16.667 mls/hr Administration Protocol 1 MG/MIN Norepinephrine 4 mg in 250 mls @ 7.5 mls/hr 06/12/20 14:00 06/14/20 11:23 Levophed Drip 4 Mg/Ns 250 Ml IV 16 mcg/min TITR CHERI 60 mls/hr Administration Protocol 2 MCG/MIN Cefepime HCl 1 gm in 100 mls @ 200 mls/hr 06/14/20 10:00 06/14/20 09:37 Cefepime/Ns 1 Gm/100 Ml IV 200 mls/hr Q24HR CHERI Administration Protocol Sodium Chloride 100 mls @ 999 mls/hr 06/14/20 08:00 Nacl 0.9% IV LINO PRN Hypotension Insulin Glargine 20 units 06/12/20 22:00 06/13/20 21:40 Lantus SUB-Q 20 units QHS CHERI Administration Insulin Human Lispro 0 unit 06/11/20 12:00 06/14/20 06:32 Humalog SUB-Q 6 unit Q6HR CHERI Administration Protocol Insulin Human Lispro 10 unit 06/12/20 16:30 06/14/20 09:41 Humalog SUB-Q 10 unit AC CHERI Administration Methylprednisolone Sodium Succinate 40 mg 06/11/20 14:00 06/14/20 06:32 Solu-Medrol IV 40 mg Q8HR CHERI Administration Metoprolol Tartrate 5 mg 06/09/20 14:52 06/11/20 05:13 Metoprolol IV 5 mg Q6HR PRN Administration Tachyarrhythmias Multi-Ingred Cream/Lotion/Oil/Oint 1 applic 06/12/20 12:11 Artificial Tears Ophth Oint OU Q4HR PRN Dry Eye(s) Naloxone HCl 0.1 mg 05/31/20 15:49 Naloxone IV Q2MIN PRN Res Rate </= 8 or 02 SAT < 92% Ondansetron HCl 4 mg 05/31/20 15:57 Zofran IV Q8H PRN N/V unrelieved by Reglan Sodium Chloride 10 ml 05/31/20 22:00 06/14/20 11:47 Sodium Chloride Flush Syringe 10 Ml IV Not Given BID CHERI Sodium Chloride 10 ml 05/31/20 15:49 Sodium Chloride Flush Syringe 10 Ml IV PRN PRN LINE FLUSH
[2020-06-14] MEDS: fentaNYL 100 MCG/2 ML INJ IV PRN (13:09)
--- NOTE | 2020-06-14 17:14 | Progress Note ---
Assessment and Plan Cultures: Coronavirus PCR:positive Blood culture: no growth Sputum culture: No growth A/P: 54-year-old male with diabetes, CKD, prior CVA, obesity was admitted to the hospital with complaints of cough, shortness of breath along with fatigue and malaise: #Severe COVID pneumonia: elevated inflammatory markers, now on BiPAP in the ICU. Was not candidate for Remdesivir due to renal function #Acute hypoxic respiratory failure: On BiPAP #KEITH on CKD: Patient now transitioning to HD. Recs: Now on high dose steroids per pulm trend ferritin, LDH, d-dimer, CRP every 2-3 days for risk stratification and to assess disease progression prophylactic anticoagulation based on d-dimer Renally dosing cefepime. D3 Repeat CBC in AM. May need to escalate to meropenem. Darby Redding MD [facility] ([facility]) M: [phone] O: [phone] F: [phone] Subjective Date of service: 06/14/20 Principal diagnosis: COVID-19 PNA, AF RVR Interval history: Febrile to 101.2. White count elevated at 30.3. Abdominal x-ray: No acute findings. Objective - Exam Narrative Exam: Physical exam deferred due to PPE conservation strategy. Please refer to primary team's note. - Constitutional Vitals: Vital Signs Temp Pulse Resp BP Pulse Ox 99.7 F H 95 H 36 H 113/73 98 06/14/20 13:15 06/14/20 15:32 06/14/20 15:30 06/14/20 15:32 06/14/20 15:32 Temperature -Last 24 Hours Temperature 99.7 F Temperature 98.7 F Temperature 99.2 F Temperature 100 F Temperature 100.1 F Temperature 101.2 F Temperature 100 F - Labs CBC & Chem 7: 06/13/20 05:06 06/14/20 04:44 Labs: Abnormal lab results 06/13/20 06/14/20 06/14/20 Range/Units 17:12 00:13 04:44 ABG pH (7.350-7.450) pH Units ABG pO2 (80.0-90.0) mm Hg ABG HCO3 (20.0-26.0) mmol/L ABG Hemoglobin (14.0-18.0) gm/dl BUN 88 H (9-20) mg/dL Creatinine 6.0 H (0.8-1.3) mg/dL Glucose 254 H (75-100) mg/dL POC Glucose 260 H 279 H (70-105) Calcium 6.8 L (8.4-10.2) mg/dL 06/14/20 06/14/20 06/14/20 Range/Units 05:30 06:00 12:49 ABG pH 7.270 L (7.350-7.450) pH Units ABG pO2 163.1 H (80.0-90.0) mm Hg ABG HCO3 29.6 H (20.0-26.0) mmol/L ABG Hemoglobin 5.5 L (14.0-18.0) gm/dl BUN (9-20) mg/dL Creatinine (0.8-1.3) mg/dL Glucose (75-100) mg/dL POC Glucose 253 H 244 H (70-105) Calcium (8.4-10.2) mg/dL
[2020-06-14] MEDS: AMIODARONE 900 MG in DEXTROSE 5% IN WATER 482 ML IV SCH (18:38)
[2020-06-15] MEDS: INSULIN GLARGINE 100 UNITS/ML SUB-Q SCH ×2 (01:14→22:38)
[2020-06-15] MEDS: NORepinephrine/NS 4 MG-250 ML 4 MG/250 ML BAG IV SCH ×3 (01:14→16:09)
[2020-06-15] MEDS: methylPREDNISolone Sod Succinate 40 MG/1 ML INJ IV SCH ×4 (01:14→22:38)
[2020-06-15] MEDS: INSULIN LISPRO 100 UNIT/ML VIAL 3 mL SUB-Q SCH ×7 (01:15→17:48)
[2020-06-15 04:17] LABS: Hemoglobin 9.3 gm/dl (11.8-15.2); Mean Corpuscular HGB Conc 33 % (32-34); Mean Corpuscular Volume 88 fl (84-94); Platelet Count 146 K/mm3 (140-440); Red Blood Count 3.18 M/mm3 (3.65-5.03); Red Cell Distribution Width 15.4 % (13.2-15.2)
[2020-06-15 04:41] LABS: Calcium 7.7 mg/dL (8.4-10.2)
[2020-06-15 06:20] LABS: Basophils % (Manual) 0 % (0.0-1.8); Eosinophils % (Manual) 0 % (0.0-4.3); Hypochromasia Few; Total Cells Counted 100
[2020-06-15 06:21] LABS: Anisocytosis Few; Platelet Estimate Consistent w Auto; Stomatocytes Few; Target Cells Few
[2020-06-15] MEDS ORDERED: SODIUM CHLORIDE 0.9% 100 ML IV PRN (08:14)
--- NOTE | 2020-06-15 08:19 | Progress Note ---
Assessment and Plan 54 y/o male with acute respiratory failure, secondary to COVID 19 pneumonia and possibly acute renal failure, now intubated with worsening renal failure 1. Overall prognosis is very guarded given amount of downtime, prior hypoxemia, and current neurologic exam. Patient could very well be anoxic. Once more stable will send for Head CT. My attempt to send down today. 2. Continue IV steroids. 3. Hold on proning as of now. 4. HD per renal, hopeful that he is only encephalopathic from uremia, but given current exam, doubtful. 5. Continue Amio 6. Very very poor prognosis, patient aware of this. Family knows of need for HD and code. Family came to visit yesterday but I missed them. cct 31 minutes Subjective Date of service: 06/15/20 Principal diagnosis: COVID-19 PNA, AF RVR Interval history: No acute events. had HD on yesterday again. Tolerated. Still on levophed. Remains unresponsive off continuous sedation. Last documented push of fentanyl was around 1300 on yesterday. Remainder is negative. Objective Vital Signs - 12hr 06/14/20 06/14/20 06/14/20 20:24 20:30 20:45 Temperature Pulse Rate 100 H 102 H 99 H Pulse Rate [ From Monitor] Respiratory 34 H 33 H Rate Blood Pressure 105/66 102/67 116/65 O2 Sat by Pulse 99 98 99 Oximetry 06/14/20 06/14/20 06/14/20 21:00 21:15 21:30 Temperature Pulse Rate 101 H 100 H 102 H Pulse Rate [ 102 H From Monitor] Respiratory 34 H 33 H 33 H Rate Blood Pressure 101/65 102/68 103/65 O2 Sat by Pulse 98 99 99 Oximetry 06/14/20 06/14/20 06/14/20 21:45 22:00 22:15 Temperature Pulse Rate 101 H 100 H 101 H Pulse Rate [ From Monitor] Respiratory 32 H 33 H 34 H Rate Blood Pressure 114/71 109/66 104/69 O2 Sat by Pulse 99 99 99 Oximetry 06/14/20 06/14/20 06/14/20 22:30 22:36 22:45 Temperature Pulse Rate 102 H 98 H 101 H Pulse Rate [ From Monitor] Respiratory 34 H 34 H 34 H Rate Blood Pressure 102/66 103/65 103/63 O2 Sat by Pulse 99 99 99 Oximetry 06/14/20 06/14/20 06/14/20 23:00 23:04 23:15 Temperature Pulse Rate 101 H 101 H 102 H Pulse Rate [ From Monitor] Respiratory 33 H 31 H 33 H Rate Blood Pressure 101/64 101/64 100/68 O2 Sat by Pulse 99 98 Oximetry 06/14/20 06/14/20 06/14/20 23:30 23:45 23:51 Temperature 99.2 F Pulse Rate 100 H 101 H Pulse Rate [ From Monitor] Respiratory 33 H 33 H Rate Blood Pressure 108/66 111/66 O2 Sat by Pulse 99 99 Oximetry 06/15/20 06/15/20 06/15/20 00:00 00:15 00:17 Temperature Pulse Rate 100 H 101 H 100 H Pulse Rate [ From Monitor] Respiratory 33 H 29 H Rate Blood Pressure 104/68 99/75 99/75 O2 Sat by Pulse 100 99 99 Oximetry 06/15/20 06/15/20 06/15/20 00:30 00:45 01:00 Temperature Pulse Rate 98 H 98 H 102 H Pulse Rate [ 100 H From Monitor] Respiratory 34 H 34 H 33 H Rate Blood Pressure 107/69 109/68 98/61 O2 Sat by Pulse 99 99 97 Oximetry 06/15/20 06/15/20 06/15/20 01:15 01:30 01:45 Temperature Pulse Rate 101 H 96 H 98 H Pulse Rate [ From Monitor] Respiratory 32 H 34 H 31 H Rate Blood Pressure 97/63 95/71 129/89 O2 Sat by Pulse 99 99 99 Oximetry 06/15/20 06/15/20 06/15/20 02:00 02:15 02:30 Temperature Pulse Rate 96 H 100 H 97 H Pulse Rate [ From Monitor] Respiratory 25 H 34 H 34 H Rate Blood Pressure 131/83 117/78 108/76 O2 Sat by Pulse 100 100 98 Oximetry 06/15/20 06/15/20 06/15/20 02:45 03:00 03:15 Temperature Pulse Rate 97 H 100 H 100 H Pulse Rate [ From Monitor] Respiratory 34 H 33 H 33 H Rate Blood Pressure 112/68 106/69 108/70 O2 Sat by Pulse 100 99 98 Oximetry 06/15/20 06/15/20 06/15/20 03:17 03:30 03:45 Temperature 99.8 F H Pulse Rate 100 H 100 H Pulse Rate [ From Monitor] Respiratory 32 H 34 H Rate Blood Pressure 106/72 107/71 O2 Sat by Pulse 99 98 Oximetry 06/15/20 06/15/20 06/15/20 04:00 04:03 04:15 Temperature Pulse Rate 101 H 102 H 101 H Pulse Rate [ 102 H From Monitor] Respiratory 32 H 32 H 32 H Rate Blood Pressure 106/70 110/70 O2 Sat by Pulse 99 96 99 Oximetry 06/15/20 06/15/20 06/15/20 04:26 04:30 04:45 Temperature Pulse Rate 99 H 100 H 99 H Pulse Rate [ From Monitor] Respiratory 32 H 31 H Rate Blood Pressure 110/70 107/69 115/70 O2 Sat by Pulse 99 98 95 Oximetry 06/15/20 06/15/20 06/15/20 05:00 05:15 05:24 Temperature 98.8 F Pulse Rate 97 H 100 H Pulse Rate [ From Monitor] Respiratory 29 H 32 H Rate Blood Pressure 109/64 106/65 O2 Sat by Pulse 94 93 Oximetry 06/15/20 06/15/20 06/15/20 05:30 05:45 06:00 Temperature Pulse Rate 102 H 99 H 100 H Pulse Rate [ From Monitor] Respiratory 32 H 36 H 29 H Rate Blood Pressure 105/68 116/67 103/66 O2 Sat by Pulse 95 94 96 Oximetry 06/15/20 06/15/20 06/15/20 06:15 06:30 06:45 Temperature Pulse Rate 99 H 98 H 100 H Pulse Rate [ From Monitor] Respiratory 25 H 21 34 H Rate Blood Pressure 105/69 110/67 115/68 O2 Sat by Pulse 95 96 98 Oximetry 06/15/20 08:00 Temperature 99.0 F Pulse Rate Pulse Rate [ From Monitor] Respiratory Rate Blood Pressure O2 Sat by Pulse Oximetry Constitutional: no acute distress, lethargic, other (Morbidly obese) Eyes: non-icteric ENT: oropharynx moist, other (Crowded oropharynx) Neck: supple Ascultation: Bilateral: diminished breath sounds Cardiovascular: regular rate and rhythm Gastrointestinal: normoactive bowel sounds, non-distended, other (Obese) Integumentary: normal Extremities: no cyanosis Neurologic: non-focal exam CBC and BMP: 06/15/20 03:21 06/15/20 03:21 ABG, PT/INR, D-dimer: ABG ABG pH 7.270 pH Units (7.350-7.450) L 06/14/20 06:00 POC ABG pCO2 88.1 mmHg (32.0-48.0) H 06/12/20 13:17 ABG pCO2 65.8 mm Hg 06/14/20 06:00 POC ABG pO2 98.3 mmHg (83-108) 06/12/20 13:17 ABG pO2 163.1 mm Hg (80.0-90.0) H 06/14/20 06:00 POC ABG HCO3 24.2 06/12/20 13:17 ABG O2 Saturation 98.8 % (95.0-99.0) 06/14/20 06:00 PT/INR, D-dimer PT 11.5 Sec. (12.2-14.9) L 05/31/20 15:23 INR 0.83 (0.87-1.13) L 05/31/20 15:23 D-Dimer > 23913 ng/mlDDU (0-234) H 06/09/20 09:21 Abnormal lab findings: Abnormal Labs 05/31/20 05/31/20 05/31/20 15:23 15:23 15:23 WBC RBC Hgb Hct MCHC RDW Lymph % (Auto) Lymph # [place] # Seg Neutrophils % Seg Neuts % (Manual) Lymphocytes % (Manual) Seg Neutrophils # Seg Neutrophils # Man Lymphocytes # (Manual) Monocytes # (Manual) PT INR D-Dimer ABG pH POC ABG pCO2 POC ABG pO2 ABG pO2 ABG HCO3 ABG Base Excess ABG Hemoglobin ABG Oxyhemoglobin Carboxyhemoglobin Sodium Potassium Chloride Carbon Dioxide BUN Creatinine Glucose 280 H POC Glucose Hemoglobin A1c Calcium Ferritin 583.4 H Alkaline Phosphatase Lactate Dehydrogenase 392 H Total Creatine Kinase 325 H C-Reactive Protein 14.30 H Albumin Ezyvs-6-Uflxoxwyt Xgxkj-5-Ehuyvugyl Beta Globulins PEP Interpretation Triglycerides Urine Creatinine Complement C3 Complement C4 Coronavirus (PCR) 05/31/20 05/31/20 05/31/20 15:23 15:23 15:23 WBC RBC Hgb Hct MCHC RDW 15.7 H Lymph % (Auto) 12.9 L Lymph # 1.0 L [place] # Seg Neutrophils % 81.7 H Seg Neuts % (Manual) Lymphocytes % (Manual) Seg Neutrophils # Seg Neutrophils # Man Lymphocytes # (Manual) Monocytes # (Manual) PT 11.5 L INR 0.83 L D-Dimer ABG pH POC ABG pCO2 POC ABG pO2 ABG pO2 ABG HCO3 ABG Base Excess ABG Hemoglobin ABG Oxyhemoglobin Carboxyhemoglobin Sodium 134 L Potassium Chloride 97.2 L Carbon Dioxide BUN 28 H Creatinine 3.0 H Glucose 279 H POC Glucose Hemoglobin A1c Calcium Ferritin Alkaline Phosphatase Lactate Dehydrogenase Total Creatine Kinase C-Reactive Protein Albumin 3.3 L Ujmhe-8-Rhsnpvwsy Ljxht-2-Vzvhmjolx Beta Globulins PEP Interpretation Triglycerides Urine Creatinine Complement C3 Complement C4 Coronavirus (PCR) 05/31/20 05/31/20 05/31/20 16:47 16:49 16:49 WBC RBC Hgb Hct MCHC RDW Lymph % (Auto) Lymph # [place] # Seg Neutrophils % Seg Neuts % (Manual) Lymphocytes % (Manual) Seg Neutrophils # Seg Neutrophils # Man Lymphocytes # (Manual) Monocytes # (Manual) PT INR D-Dimer 738.85 H ABG pH POC ABG pCO2 POC ABG pO2 ABG pO2 ABG HCO3 ABG Base Excess ABG Hemoglobin ABG Oxyhemoglobin Carboxyhemoglobin Sodium Potassium Chloride Carbon Dioxide BUN Creatinine Glucose 258 H POC Glucose 239 H Hemoglobin A1c Calcium Ferritin Alkaline Phosphatase Lactate Dehydrogenase 409 H Total Creatine Kinase C-Reactive Protein 14.00 H Albumin Hqjsc-5-Jlhiwcyru Lksgn-6-Fifthjfrs Beta Globulins PEP Interpretation Triglycerides Urine Creatinine Complement C3 Complement C4 Coronavirus (PCR) 05/31/20 05/31/20 06/01/20 16:49 16:49 10:15 WBC RBC Hgb Hct MCHC RDW Lymph % (Auto) Lymph # [place] # Seg Neutrophils % Seg Neuts % (Manual) Lymphocytes % (Manual) Seg Neutrophils # Seg Neutrophils # Man Lymphocytes # (Manual) Monocytes # (Manual) PT INR D-Dimer ABG pH POC ABG pCO2 POC ABG pO2 ABG pO2 ABG HCO3 ABG Base Excess ABG Hemoglobin ABG Oxyhemoglobin Carboxyhemoglobin Sodium Potassium Chloride Carbon Dioxide BUN Creatinine Glucose POC Glucose 277 H Hemoglobin A1c 8.5 H Calcium Ferritin 599.0 H Alkaline Phosphatase Lactate Dehydrogenase Total Creatine Kinase C-Reactive Protein Albumin Cpomo-7-Wxigcznxz Zjzwd-9-Rwsjykdtg Beta Globulins PEP Interpretation Triglycerides Urine Creatinine Complement C3 Complement C4 Coronavirus (PCR) 06/01/20 06/01/2020 13:41 13:41 16:10 WBC RBC Hgb Hct MCHC RDW 15.3 H Lymph % (Auto) 8.4 L Lymph # 0.9 L [place] # Seg Neutrophils % 86.9 H Seg Neuts % (Manual) Lymphocytes % (Manual) Seg Neutrophils # 9.3 H Seg Neutrophils # Man Lymphocytes # (Manual) Monocytes # (Manual) PT INR D-Dimer ABG pH POC ABG pCO2 POC ABG pO2 ABG pO2 ABG HCO3 ABG Base Excess ABG Hemoglobin ABG Oxyhemoglobin Carboxyhemoglobin Sodium 136 L Potassium 5.5 H Chloride Carbon Dioxide 20 L BUN 42 H Creatinine 3.5 H Glucose 278 H POC Glucose 372 H Hemoglobin A1c Calcium Ferritin Alkaline Phosphatase Lactate Dehydrogenase Total Creatine Kinase C-Reactive Protein Albumin Hqfbz-3-Qukasaasm Luwml-2-Kbenscpiv Beta Globulins PEP Interpretation Triglycerides Urine Creatinine Complement C3 Complement C4 Coronavirus (PCR) 06/01/20 06/01/20 06/01/20 23:12 Unknown Unknown WBC RBC Hgb Hct MCHC RDW Lymph % (Auto) Lymph # [place] # Seg Neutrophils % Seg Neuts % (Manual) Lymphocytes % (Manual) Seg Neutrophils # Seg Neutrophils # Man Lymphocytes # (Manual) Monocytes # (Manual) PT INR D-Dimer ABG pH POC ABG pCO2 POC ABG pO2 ABG pO2 ABG HCO3 ABG Base Excess ABG Hemoglobin ABG Oxyhemoglobin Carboxyhemoglobin Sodium Potassium Chloride Carbon Dioxide BUN Creatinine Glucose POC Glucose 398 H Hemoglobin A1c Calcium Ferritin Alkaline Phosphatase Lactate Dehydrogenase Total Creatine Kinase C-Reactive Protein Albumin Ueelu-8-Pwhkqxrvw Tnead-2-Jhazgybht Beta Globulins PEP Interpretation Triglycerides Urine Creatinine 161.6 H Complement C3 Complement C4 Coronavirus (PCR) Positive A 06/02/20 06/02/20 06/02/20 04:55 04:55 05:33 WBC 14.7 H RBC Hgb Hct MCHC RDW 15.4 H Lymph % (Auto) 7.1 L Lymph # 1.1 L [place] # Seg Neutrophils % 89.3 H Seg Neuts % (Manual) Lymphocytes % (Manual) Seg Neutrophils # 13.2 H Seg Neutrophils # Man Lymphocytes # (Manual) Monocytes # (Manual) PT INR D-Dimer ABG pH POC ABG pCO2 POC ABG pO2 ABG pO2 ABG HCO3 ABG Base Excess ABG Hemoglobin ABG Oxyhemoglobin Carboxyhemoglobin Sodium 136 L Potassium Chloride 97.2 L Carbon Dioxide 21 L BUN 47 H Creatinine 3.5 H Glucose 244 H POC Glucose 262 H Hemoglobin A1c Calcium Ferritin Alkaline Phosphatase Lactate Dehydrogenase Total Creatine Kinase C-Reactive Protein Albumin 3.2 L Lnczh-5-Lmtgyzgaz Ohxuy-0-Dthlzovvs Beta Globulins PEP Interpretation Triglycerides Urine Creatinine Complement C3 Complement C4 Coronavirus (PCR) 06/02/20 06/02/20 06/02/20 10:55 16:49 22:15 WBC RBC Hgb Hct MCHC RDW Lymph % (Auto) Lymph # [place] # Seg Neutrophils % Seg Neuts % (Manual) Lymphocytes % (Manual) Seg Neutrophils # Seg Neutrophils # Man Lymphocytes # (Manual) Monocytes # (Manual) PT INR D-Dimer ABG pH POC ABG pCO2 POC ABG pO2 ABG pO2 ABG HCO3 ABG Base Excess ABG Hemoglobin ABG Oxyhemoglobin Carboxyhemoglobin Sodium Potassium Chloride Carbon Dioxide BUN Creatinine Glucose POC Glucose 160 H 214 H 292 H Hemoglobin A1c Calcium Ferritin Alkaline Phosphatase Lactate Dehydrogenase Total Creatine Kinase C-Reactive Protein Albumin Ftdpj-3-Tcmleqvfe Cespb-4-Vyqnsmkhv Beta Globulins PEP Interpretation Triglycerides Urine Creatinine Complement C3 Complement C4 Coronavirus (PCR) 06/02/20 06/03/20 06/03/20 23:47 05:18 05:18 WBC 18.4 H RBC Hgb Hct MCHC RDW 15.3 H Lymph % (Auto) Lymph # [place] # Seg Neutrophils % Seg Neuts % (Manual) 91.0 H Lymphocytes % (Manual) 8.0 L Seg Neutrophils # Seg Neutrophils # Man 16.7 H Lymphocytes # (Manual) Monocytes # (Manual) PT INR D-Dimer ABG pH POC ABG pCO2 POC ABG pO2 ABG pO2 ABG HCO3 ABG Base Excess ABG Hemoglobin ABG Oxyhemoglobin Carboxyhemoglobin Sodium Potassium Chloride Carbon Dioxide 20 L BUN 50 H Creatinine 3.1 H Glucose 248 H POC Glucose 292 H Hemoglobin A1c Calcium Ferritin Alkaline Phosphatase Lactate Dehydrogenase Total Creatine Kinase C-Reactive Protein Albumin 2.8 L Bjuoq-6-Azzshduvx Kpfaa-7-Dlczpgusc Beta Globulins PEP Interpretation Triglycerides Urine Creatinine Complement C3 Complement C4 Coronavirus (PCR) 06/03/20 06/03/20 06/03/20 05:20 10:39 10:39 WBC RBC Hgb Hct MCHC RDW Lymph % (Auto) Lymph # [place] # Seg Neutrophils % Seg Neuts % (Manual) Lymphocytes % (Manual) Seg Neutrophils # Seg Neutrophils # Man Lymphocytes # (Manual) Monocytes # (Manual) PT INR D-Dimer ABG pH POC ABG pCO2 POC ABG pO2 ABG pO2 ABG HCO3 ABG Base Excess ABG Hemoglobin ABG Oxyhemoglobin Carboxyhemoglobin Sodium Potassium Chloride Carbon Dioxide BUN Creatinine Glucose POC Glucose 208 H Hemoglobin A1c Calcium Ferritin Alkaline Phosphatase Lactate Dehydrogenase Total Creatine Kinase C-Reactive Protein Albumin Fcnmr-9-Usnvtxoak Yvbec-3-Dtizkawrm Beta Globulins PEP Interpretation Triglycerides Urine Creatinine Complement C3 223 H Complement C4 64 H Coronavirus (PCR) 06/03/20 06/03/20 06/03/20 11:40 13:06 16:58 WBC RBC Hgb Hct MCHC RDW Lymph % (Auto) Lymph # [place] # Seg Neutrophils % Seg Neuts % (Manual) Lymphocytes % (Manual) Seg Neutrophils # Seg Neutrophils # Man Lymphocytes # (Manual) Monocytes # (Manual) PT INR D-Dimer ABG pH POC ABG pCO2 POC ABG pO2 ABG pO2 ABG HCO3 ABG Base Excess ABG Hemoglobin ABG Oxyhemoglobin Carboxyhemoglobin Sodium Potassium Chloride Carbon Dioxide BUN Creatinine Glucose POC Glucose 180 H 167 H 152 H Hemoglobin A1c Calcium Ferritin Alkaline Phosphatase Lactate Dehydrogenase Total Creatine Kinase C-Reactive Protein Albumin Okaxg-8-Pwhinpram Qrvib-0-Wmypuyypm Beta Globulins PEP Interpretation Triglycerides Urine Creatinine Complement C3 Complement C4 Coronavirus (PCR) 06/04/20 06/04/20 06/04/20 00:07 04:17 04:17 WBC 20.8 H RBC 5.20 H Hgb Hct MCHC RDW 15.7 H Lymph % (Auto) Lymph # [place] # Seg Neutrophils % Seg Neuts % (Manual) 91.0 H Lymphocytes % (Manual) 4.0 L Seg Neutrophils # Seg Neutrophils # Man 18.9 H Lymphocytes # (Manual) 0.8 L Monocytes # (Manual) 1.0 H PT INR D-Dimer ABG pH POC ABG pCO2 POC ABG pO2 ABG pO2 ABG HCO3 ABG Base Excess ABG Hemoglobin ABG Oxyhemoglobin Carboxyhemoglobin Sodium 135 L Potassium 5.1 H Chloride 97.8 L Carbon Dioxide 20 L BUN 56 H Creatinine 3.1 H Glucose 178 H POC Glucose 206 H Hemoglobin A1c Calcium Ferritin Alkaline Phosphatase Lactate Dehydrogenase Total Creatine Kinase C-Reactive Protein Albumin 3.0 L Xgtue-4-Lngpkokkd Qvylo-4-Tmbvbptwv Beta Globulins PEP Interpretation Triglycerides Urine Creatinine Complement C3 Complement C4 Coronavirus (PCR) 06/04/20 06/04/20 06/04/20 04:17 05:35 11:08 WBC RBC Hgb Hct MCHC RDW Lymph % (Auto) Lymph # [place] # Seg Neutrophils % Seg Neuts % (Manual) Lymphocytes % (Manual) Seg Neutrophils # Seg Neutrophils # Man Lymphocytes # (Manual) Monocytes # (Manual) PT INR D-Dimer ABG pH POC ABG pCO2 POC ABG pO2 ABG pO2 ABG HCO3 ABG Base Excess ABG Hemoglobin ABG Oxyhemoglobin Carboxyhemoglobin Sodium Potassium Chloride Carbon Dioxide BUN Creatinine Glucose POC Glucose 166 H 159 H Hemoglobin A1c Calcium Ferritin Alkaline Phosphatase Lactate Dehydrogenase Total Creatine Kinase C-Reactive Protein Albumin 2.6 L Yxskl-8-Qegfzifvi 0.5 H Synhw-6-Urvxmdtor 1.6 H Beta Globulins 0.6 H PEP Interpretation see below H Triglycerides Urine Creatinine Complement C3 Complement C4 Coronavirus (PCR) 06/04/20 06/05/20 06/05/20 18:06 00:22 04:56 WBC 20.2 H RBC Hgb Hct MCHC RDW 15.6 H Lymph % (Auto) 4.7 L Lymph # 0.9 L [place] # 1.0 H Seg Neutrophils % Seg Neuts % (Manual) Lymphocytes % (Manual) Seg Neutrophils # 18.2 H Seg Neutrophils # Man Lymphocytes # (Manual) Monocytes # (Manual) PT INR D-Dimer ABG pH POC ABG pCO2 POC ABG pO2 ABG pO2 ABG HCO3 ABG Base Excess ABG Hemoglobin ABG Oxyhemoglobin Carboxyhemoglobin Sodium Potassium Chloride Carbon Dioxide BUN Creatinine Glucose POC Glucose 190 H 234 H Hemoglobin A1c Calcium Ferritin Alkaline Phosphatase Lactate Dehydrogenase Total Creatine Kinase C-Reactive Protein Albumin Rmqjd-3-Hwxhjrpsy Swwcy-0-Dexmtehvp Beta Globulins PEP Interpretation Triglycerides Urine Creatinine Complement C3 Complement C4 Coronavirus (PCR) 06/05/20 06/05/20 06/05/20 04:56 05:43 09:27 WBC RBC Hgb Hct MCHC RDW Lymph % (Auto) Lymph # [place] # Seg Neutrophils % Seg Neuts % (Manual) Lymphocytes % (Manual) Seg Neutrophils # Seg Neutrophils # Man Lymphocytes # (Manual) Monocytes # (Manual) PT INR D-Dimer ABG pH POC ABG pCO2 POC ABG pO2 ABG pO2 ABG HCO3 ABG Base Excess ABG Hemoglobin ABG Oxyhemoglobin Carboxyhemoglobin Sodium Potassium Chloride Carbon Dioxide 21 L BUN 63 H Creatinine 3.0 H Glucose 170 H POC Glucose 156 H 106 H Hemoglobin A1c Calcium Ferritin Alkaline Phosphatase Lactate Dehydrogenase Total Creatine Kinase C-Reactive Protein Albumin 3.0 L Qasnz-5-Fdsiaitkf Ntpvn-6-Mkphlbsml Beta Globulins PEP Interpretation Triglycerides Urine Creatinine Complement C3 Complement C4 Coronavirus (PCR) 06/05/20 06/05/20 06/06/20 15:50 23:36 10:31 WBC 18.3 H RBC Hgb Hct MCHC RDW 15.6 H Lymph % (Auto) Lymph # [place] # Seg Neutrophils % Seg Neuts % (Manual) 90.0 H Lymphocytes % (Manual) 6.0 L Seg Neutrophils # Seg Neutrophils # Man 16.5 H Lymphocytes # (Manual) 1.1 L Monocytes # (Manual) PT INR D-Dimer ABG pH POC ABG pCO2 POC ABG pO2 ABG pO2 ABG HCO3 ABG Base Excess ABG Hemoglobin ABG Oxyhemoglobin Carboxyhemoglobin Sodium Potassium Chloride Carbon Dioxide BUN Creatinine Glucose POC Glucose 197 H 193 H Hemoglobin A1c Calcium Ferritin Alkaline Phosphatase Lactate Dehydrogenase Total Creatine Kinase C-Reactive Protein Albumin Agxoc-5-Hqiboxypp Lwlmn-9-Bydorhphc Beta Globulins PEP Interpretation Triglycerides Urine Creatinine Complement C3 Complement C4 Coronavirus (PCR) 06/06/20 06/06/20 06/06/20 10:31 12:34 17:34 WBC RBC Hgb Hct MCHC RDW Lymph % (Auto) Lymph # [place] # Seg Neutrophils % Seg Neuts % (Manual) Lymphocytes % (Manual) Seg Neutrophils # Seg Neutrophils # Man Lymphocytes # (Manual) Monocytes # (Manual) PT INR D-Dimer ABG pH POC ABG pCO2 POC ABG pO2 ABG pO2 ABG HCO3 ABG Base Excess ABG Hemoglobin ABG Oxyhemoglobin Carboxyhemoglobin Sodium Potassium Chloride Carbon Dioxide BUN 65 H Creatinine 2.7 H Glucose 61 L POC Glucose 50 L 117 H Hemoglobin A1c Calcium Ferritin Alkaline Phosphatase Lactate Dehydrogenase Total Creatine Kinase C-Reactive Protein Albumin Wgzdm-7-Msazqkloq Jfpam-5-Vyqlnoeqy Beta Globulins PEP Interpretation Triglycerides Urine Creatinine Complement C3 Complement C4 Coronavirus (PCR) 06/07/20 06/07/20 06/07/20 04:40 04:40 06:07 WBC 16.3 H RBC Hgb Hct MCHC RDW 15.6 H Lymph % (Auto) 4.9 L Lymph # 0.8 L [place] # 0.9 H Seg Neutrophils % 89.3 H Seg Neuts % (Manual) Lymphocytes % (Manual) Seg Neutrophils # 14.6 H Seg Neutrophils # Man Lymphocytes # (Manual) Monocytes # (Manual) PT INR D-Dimer ABG pH POC ABG pCO2 POC ABG pO2 ABG pO2 ABG HCO3 ABG Base Excess ABG Hemoglobin ABG Oxyhemoglobin Carboxyhemoglobin Sodium Potassium 5.1 H D Chloride Carbon Dioxide BUN 67 H Creatinine 2.6 H Glucose 52 L POC Glucose 45 L Hemoglobin A1c Calcium Ferritin Alkaline Phosphatase Lactate Dehydrogenase Total Creatine Kinase C-Reactive Protein Albumin Sxxoc-9-Bapikbqfs Lylpm-6-Nmrmyrapy Beta Globulins PEP Interpretation Triglycerides Urine Creatinine Complement C3 Complement C4 Coronavirus (PCR) 06/07/20 06/07/20 06/07/20 10:34 10:49 12:26 WBC RBC Hgb Hct MCHC RDW Lymph % (Auto) Lymph # [place] # Seg Neutrophils % Seg Neuts % (Manual) Lymphocytes % (Manual) Seg Neutrophils # Seg Neutrophils # Man Lymphocytes # (Manual) Monocytes # (Manual) PT INR D-Dimer ABG pH POC ABG pCO2 POC ABG pO2 ABG pO2 ABG HCO3 ABG Base Excess ABG Hemoglobin ABG Oxyhemoglobin Carboxyhemoglobin Sodium Potassium Chloride Carbon Dioxide BUN Creatinine Glucose POC Glucose 57 L 54 L 192 H Hemoglobin A1c Calcium Ferritin Alkaline Phosphatase Lactate Dehydrogenase Total Creatine Kinase C-Reactive Protein Albumin Hthrx-7-Ucjtafraw Cuivr-1-Xdgdohhia Beta Globulins PEP Interpretation Triglycerides Urine Creatinine Complement C3 Complement C4 Coronavirus (PCR) 06/07/20 06/08/20 06/08/20 17:42 00:12 04:52 WBC 18.8 H RBC Hgb Hct MCHC RDW 15.6 H Lymph % (Auto) 4.6 L Lymph # 0.9 L [place] # 1.0 H Seg Neutrophils % 89.7 H Seg Neuts % (Manual) Lymphocytes % (Manual) Seg Neutrophils # 16.9 H Seg Neutrophils # Man Lymphocytes # (Manual) Monocytes # (Manual) PT INR D-Dimer ABG pH POC ABG pCO2 POC ABG pO2 ABG pO2 ABG HCO3 ABG Base Excess ABG Hemoglobin ABG Oxyhemoglobin Carboxyhemoglobin Sodium Potassium Chloride Carbon Dioxide BUN Creatinine Glucose POC Glucose 241 H 285 H Hemoglobin A1c Calcium Ferritin Alkaline Phosphatase Lactate Dehydrogenase Total Creatine Kinase C-Reactive Protein Albumin Mprgn-8-Nfionoimz Fxkpo-0-Qmvfiqacu Beta Globulins PEP Interpretation Triglycerides Urine Creatinine Complement C3 Complement C4 Coronavirus (PCR) 06/08/20 06/08/20 06/08/20 04:52 05:41 12:44 WBC RBC Hgb Hct MCHC RDW Lymph % (Auto) Lymph # [place] # Seg Neutrophils % Seg Neuts % (Manual) Lymphocytes % (Manual) Seg Neutrophils # Seg Neutrophils # Man Lymphocytes # (Manual) Monocytes # (Manual) PT INR D-Dimer ABG pH POC ABG pCO2 POC ABG pO2 ABG pO2 ABG HCO3 ABG Base Excess ABG Hemoglobin ABG Oxyhemoglobin Carboxyhemoglobin Sodium Potassium Chloride Carbon Dioxide BUN 66 H Creatinine 2.6 H Glucose 175 H POC Glucose 177 H 172 H Hemoglobin A1c Calcium Ferritin Alkaline Phosphatase Lactate Dehydrogenase Total Creatine Kinase C-Reactive Protein Albumin Xlhkn-4-Fstycreot Qrbpi-3-Twafahdbm Beta Globulins PEP Interpretation Triglycerides Urine Creatinine Complement C3 Complement C4 Coronavirus (PCR) 06/08/20 06/08/20 06/09/20 18:18 23:39 01:03 WBC 19.6 H RBC Hgb Hct MCHC 36 H RDW 15.5 H Lymph % (Auto) 5.3 L Lymph # 1.0 L [place] # Seg Neutrophils % Seg Neuts % (Manual) Lymphocytes % (Manual) Seg Neutrophils # 17.7 H Seg Neutrophils # Man Lymphocytes # (Manual) Monocytes # (Manual) PT INR D-Dimer ABG pH POC ABG pCO2 POC ABG pO2 ABG pO2 ABG HCO3 ABG Base Excess ABG Hemoglobin ABG Oxyhemoglobin Carboxyhemoglobin Sodium Potassium Chloride Carbon Dioxide BUN Creatinine Glucose POC Glucose 251 H 196 H Hemoglobin A1c Calcium Ferritin Alkaline Phosphatase Lactate Dehydrogenase Total Creatine Kinase C-Reactive Protein Albumin Pqfuo-6-Lxpwhykqq Mkovy-6-Cngiyjmin Beta Globulins PEP Interpretation Triglycerides Urine Creatinine Complement C3 Complement C4 Coronavirus (PCR) 06/09/20 06/09/20 06/09/20 01:03 05:42 06:02 WBC RBC Hgb Hct MCHC RDW Lymph % (Auto) Lymph # [place] # Seg Neutrophils % Seg Neuts % (Manual) Lymphocytes % (Manual) Seg Neutrophils # Seg Neutrophils # Man Lymphocytes # (Manual) Monocytes # (Manual) PT INR D-Dimer ABG pH POC ABG pCO2 POC ABG pO2 ABG pO2 ABG HCO3 ABG Base Excess ABG Hemoglobin ABG Oxyhemoglobin Carboxyhemoglobin Sodium 136 L Potassium Chloride Carbon Dioxide 20 L 20 L BUN 68 H 66 H Creatinine 2.7 H 2.7 H Glucose 180 H 141 H POC Glucose 136 H Hemoglobin A1c Calcium 8.3 L Ferritin Alkaline Phosphatase Lactate Dehydrogenase Total Creatine Kinase C-Reactive Protein Albumin 2.6 L [id number]-[id number]-Qkorgnrwl Uyveg-1-Yqwwjsmre Beta Globulins PEP Interpretation Triglycerides Urine Creatinine Complement C3 Complement C4 Coronavirus (PCR) 06/09/20 06/09/20 06/09/20 09:21 09:21 09:21 WBC RBC Hgb Hct MCHC RDW Lymph % (Auto) Lymph # [place] # Seg Neutrophils % Seg Neuts % (Manual) Lymphocytes % (Manual) Seg Neutrophils # Seg Neutrophils # Man Lymphocytes # (Manual) Monocytes # (Manual) PT INR D-Dimer > 99758 H ABG pH POC ABG pCO2 POC ABG pO2 ABG pO2 ABG HCO3 ABG Base Excess ABG Hemoglobin ABG Oxyhemoglobin Carboxyhemoglobin Sodium Potassium Chloride Carbon Dioxide BUN Creatinine Glucose 195 H POC Glucose Hemoglobin A1c Calcium Ferritin 1045.0 H Alkaline Phosphatase Lactate Dehydrogenase 461 H Total Creatine Kinase C-Reactive Protein 9.30 H Albumin Wjifl-7-Vmxcygpms Ixzwm-1-Aindlynvh Beta Globulins PEP Interpretation Triglycerides Urine Creatinine Complement C3 Complement C4 Coronavirus (PCR) 06/09/20 06/09/20 06/09/20 10:26 17:30 22:22 WBC RBC Hgb Hct MCHC RDW Lymph % (Auto) Lymph # [place] # Seg Neutrophils % Seg Neuts % (Manual) Lymphocytes % (Manual) Seg Neutrophils # Seg Neutrophils # Man Lymphocytes # (Manual) Monocytes # (Manual) PT INR D-Dimer ABG pH POC ABG pCO2 POC ABG pO2 ABG pO2 ABG HCO3 ABG Base Excess ABG Hemoglobin ABG Oxyhemoglobin Carboxyhemoglobin Sodium Potassium Chloride Carbon Dioxide BUN Creatinine Glucose POC Glucose 178 H 219 H 167 H Hemoglobin A1c Calcium Ferritin Alkaline Phosphatase Lactate Dehydrogenase Total Creatine Kinase C-Reactive Protein Albumin Acgjg-6-Pasyuohvj Fxdno-8-Dcgltqiop Beta Globulins PEP Interpretation Triglycerides Urine Creatinine Complement C3 Complement C4 Coronavirus (PCR) 06/10/20 06/10/20 06/10/20 00:34 00:34 04:42 WBC 18.6 H RBC Hgb Hct MCHC RDW 15.6 H Lymph % (Auto) Lymph # [place] # Seg Neutrophils % Seg Neuts % (Manual) 94.0 H Lymphocytes % (Manual) 2.0 L Seg Neutrophils # Seg Neutrophils # Man 17.5 H Lymphocytes # (Manual) 0.4 L Monocytes # (Manual) PT INR D-Dimer ABG pH POC ABG pCO2 POC ABG pO2 ABG pO2 ABG HCO3 ABG Base Excess ABG Hemoglobin ABG Oxyhemoglobin Carboxyhemoglobin Sodium Potassium 5.5 H 6.0 H Chloride Carbon Dioxide 21 L 19 L BUN 70 H 68 H Creatinine 2.6 H 2.8 H Glucose 177 H 185 H POC Glucose Hemoglobin A1c Calcium Ferritin Alkaline Phosphatase 134 H Lactate Dehydrogenase Total Creatine Kinase C-Reactive Protein Albumin 2.9 L Fgaeb-2-Lempnirfd Jhbpc-7-Vodwnbynm Beta Globulins PEP Interpretation Triglycerides Urine Creatinine Complement C3 Complement C4 Coronavirus (PCR) 06/10/20 06/10/20 06/10/20 05:54 11:04 13:18 WBC RBC Hgb Hct MCHC RDW Lymph % (Auto) Lymph # [place] # Seg Neutrophils % Seg Neuts % (Manual) Lymphocytes % (Manual) Seg Neutrophils # Seg Neutrophils # Man Lymphocytes # (Manual) Monocytes # (Manual) PT INR D-Dimer ABG pH POC ABG pCO2 31.7 L POC ABG pO2 57.9 L ABG pO2 ABG HCO3 ABG Base Excess ABG Hemoglobin ABG Oxyhemoglobin Carboxyhemoglobin Sodium Potassium Chloride Carbon Dioxide BUN Creatinine Glucose POC Glucose 171 H 243 H Hemoglobin A1c Calcium Ferritin Alkaline Phosphatase Lactate Dehydrogenase Total Creatine Kinase C-Reactive Protein Albumin Jufmk-7-Nchysnnye Pnctx-2-Xnhyzsctu Beta Globulins PEP Interpretation Triglycerides Urine Creatinine Complement C3 Complement C4 Coronavirus (PCR) 06/10/20 06/11/20 06/11/20 17:28 00:14 00:14 WBC 21.1 H RBC Hgb Hct MCHC RDW 15.4 H Lymph % (Auto) Lymph # [place] # Seg Neutrophils % Seg Neuts % (Manual) 93.0 H Lymphocytes % (Manual) 5.0 L Seg Neutrophils # Seg Neutrophils # Man 19.6 H Lymphocytes # (Manual) 1.1 L Monocytes # (Manual) PT INR D-Dimer ABG pH POC ABG pCO2 POC ABG pO2 ABG pO2 ABG HCO3 ABG Base Excess ABG Hemoglobin ABG Oxyhemoglobin Carboxyhemoglobin Sodium Potassium Chloride Carbon Dioxide 18 L BUN 73 H Creatinine 2.7 H Glucose 216 H POC Glucose 265 H Hemoglobin A1c Calcium Ferritin Alkaline Phosphatase 134 H Lactate Dehydrogenase Total Creatine Kinase C-Reactive Protein Albumin 2.7 L Jexqb-4-Nrtcsaneb Khinu-1-Wfhfmygay Beta Globulins PEP Interpretation Triglycerides Urine Creatinine Complement C3 Complement C4 Coronavirus (PCR) 06/11/20 06/11/20 06/11/20 05:27 13:14 17:27 WBC RBC Hgb Hct MCHC RDW Lymph % (Auto) Lymph # [place] # Seg Neutrophils % Seg Neuts % (Manual) Lymphocytes % (Manual) Seg Neutrophils # Seg Neutrophils # Man Lymphocytes # (Manual) Monocytes # (Manual) PT INR D-Dimer ABG pH POC ABG pCO2 POC ABG pO2 ABG pO2 ABG HCO3 ABG Base Excess ABG Hemoglobin ABG Oxyhemoglobin Carboxyhemoglobin Sodium Potassium Chloride Carbon Dioxide BUN Creatinine Glucose POC Glucose 241 H 273 H 317 H Hemoglobin A1c Calcium Ferritin Alkaline Phosphatase Lactate Dehydrogenase Total Creatine Kinase C-Reactive Protein Albumin Nngja-2-Tlusjarph Lqxmj-3-Mwcwldpud Beta Globulins PEP Interpretation Triglycerides Urine Creatinine Complement C3 Complement C4 Coronavirus (PCR) 06/11/20 06/11/20 06/11/20 18:21 22:13 23:47 WBC RBC Hgb Hct MCHC RDW Lymph % (Auto) Lymph # [place] # Seg Neutrophils % Seg Neuts % (Manual) Lymphocytes % (Manual) Seg Neutrophils # Seg Neutrophils # Man Lymphocytes # (Manual) Monocytes # (Manual) PT INR D-Dimer ABG pH POC ABG pCO2 POC ABG pO2 ABG pO2 ABG HCO3 ABG Base Excess ABG Hemoglobin ABG Oxyhemoglobin Carboxyhemoglobin Sodium Potassium Chloride Carbon Dioxide BUN Creatinine Glucose POC Glucose 350 H 317 H 303 H Hemoglobin A1c Calcium Ferritin Alkaline Phosphatase Lactate Dehydrogenase Total Creatine Kinase C-Reactive Protein Albumin Ntmpn-3-Junzjuibu Jpezz-3-Xttsdsjez Beta Globulins PEP Interpretation Triglycerides Urine Creatinine Complement C3 Complement C4 Coronavirus (PCR) 06/12/20 06/12/20 06/12/20 05:34 05:34 06:17 WBC 25.2 H RBC 5.14 H Hgb Hct MCHC RDW 15.5 H Lymph % (Auto) Lymph # [place] # Seg Neutrophils % Seg Neuts % (Manual) 93.0 H Lymphocytes % (Manual) 2.0 L Seg Neutrophils # Seg Neutrophils # Man 23.4 H Lymphocytes # (Manual) 0.5 L Monocytes # (Manual) 1.3 H PT INR D-Dimer ABG pH POC ABG pCO2 POC ABG pO2 ABG pO2 ABG HCO3 ABG Base Excess ABG Hemoglobin ABG Oxyhemoglobin Carboxyhemoglobin Sodium 148 H Potassium Chloride 108.7 H Carbon Dioxide 19 L BUN 88 H Creatinine 3.7 H Glucose 314 H POC Glucose 281 H Hemoglobin A1c Calcium Ferritin Alkaline Phosphatase Lactate Dehydrogenase Total Creatine Kinase C-Reactive Protein Albumin Vrjsa-9-Uhfgwkxve Uyvck-7-Jctpxbkkw Beta Globulins PEP Interpretation Triglycerides Urine Creatinine Complement C3 Complement C4 Coronavirus (PCR) 06/12/20 06/12/20 06/12/20 09:32 11:38 13:17 WBC RBC Hgb Hct MCHC RDW Lymph % (Auto) Lymph # [place] # Seg Neutrophils % Seg Neuts % (Manual) Lymphocytes % (Manual) Seg Neutrophils # Seg Neutrophils # Man Lymphocytes # (Manual) Monocytes # (Manual) PT INR D-Dimer ABG pH 7.056 L POC ABG pCO2 30.5 L 88.1 H POC ABG pO2 49.5 L ABG pO2 ABG HCO3 ABG Base Excess ABG Hemoglobin ABG Oxyhemoglobin 92.7 L Carboxyhemoglobin 0.1 L Sodium Potassium Chloride Carbon Dioxide BUN Creatinine Glucose POC Glucose 353 H Hemoglobin A1c Calcium Ferritin Alkaline Phosphatase Lactate Dehydrogenase Total Creatine Kinase C-Reactive Protein Albumin Ctduh-0-Xtwuhdjvh Cgntr-0-Zelhjfgoz Beta Globulins PEP Interpretation Triglycerides Urine Creatinine Complement C3 Complement C4 Coronavirus (PCR) 06/12/20 06/12/20 06/13/20 17:45 23:53 03:30 WBC RBC Hgb Hct MCHC RDW Lymph % (Auto) Lymph # [place] # Seg Neutrophils % Seg Neuts % (Manual) Lymphocytes % (Manual) Seg Neutrophils # Seg Neutrophils # Man Lymphocytes # (Manual) Monocytes # (Manual) PT INR D-Dimer ABG pH 7.091 L* POC ABG pCO2 POC ABG pO2 ABG pO2 172.6 H ABG HCO3 ABG Base Excess -7.3 L ABG Hemoglobin ABG Oxyhemoglobin Carboxyhemoglobin Sodium Potassium Chloride Carbon Dioxide BUN Creatinine Glucose POC Glucose 348 H 279 H Hemoglobin A1c Calcium Ferritin Alkaline Phosphatase Lactate Dehydrogenase Total Creatine Kinase C-Reactive Protein Albumin Acfdb-7-Mjqogbmnz Geqqz-9-Arrorunzy Beta Globulins PEP Interpretation Triglycerides Urine Creatinine Complement C3 Complement C4 Coronavirus (PCR) 06/13/20 06/13/20 06/13/20 05:06 05:06 06:03 WBC 30.3 H RBC Hgb Hct MCHC RDW 16.0 H Lymph % (Auto) 2.4 L Lymph # 0.7 L [place] # 1.6 H Seg Neutrophils % Seg Neuts % (Manual) Lymphocytes % (Manual) Seg Neutrophils # 27.9 H Seg Neutrophils # Man Lymphocytes # (Manual) Monocytes # (Manual) PT INR D-Dimer ABG pH POC ABG pCO2 POC ABG pO2 ABG pO2 ABG HCO3 ABG Base Excess ABG Hemoglobin ABG Oxyhemoglobin Carboxyhemoglobin Sodium 148 H Potassium 8.8 H* D Chloride 109.5 H Carbon Dioxide BUN 118 H Creatinine 6.4 H D Glucose 272 H POC Glucose 285 H Hemoglobin A1c Calcium 7.7 L D Ferritin Alkaline Phosphatase Lactate Dehydrogenase Total Creatine Kinase C-Reactive Protein Albumin 2.5 L Iiaoz-0-Bsxsruhsk Kdslv-2-Ctggnapzd Beta Globulins PEP Interpretation Triglycerides Urine Creatinine Complement C3 Complement C4 Coronavirus (PCR) 06/13/20 06/13/20 06/13/20 12:15 16:06 17:12 WBC RBC Hgb Hct MCHC RDW Lymph % (Auto) Lymph # [place] # Seg Neutrophils % Seg Neuts % (Manual) Lymphocytes % (Manual) Seg Neutrophils # Seg Neutrophils # Man Lymphocytes # (Manual) Monocytes # (Manual) PT INR D-Dimer ABG pH POC ABG pCO2 POC ABG pO2 ABG pO2 ABG HCO3 ABG Base Excess ABG Hemoglobin ABG Oxyhemoglobin Carboxyhemoglobin Sodium 146 H Potassium Chloride Carbon Dioxide BUN 68 H Creatinine 4.5 H Glucose 298 H POC Glucose 288 H 260 H Hemoglobin A1c Calcium 7.2 L Ferritin Alkaline Phosphatase Lactate Dehydrogenase Total Creatine Kinase C-Reactive Protein Albumin Ytpee-6-Rxwhsxeoi Dusrh-4-Vsbzzzqaz Beta Globulins PEP Interpretation Triglycerides Urine Creatinine Complement C3 Complement C4 Coronavirus (PCR) 06/14/20 06/14/20 06/14/20 00:13 04:44 05:30 WBC RBC Hgb Hct MCHC RDW Lymph % (Auto) Lymph # [place] # Seg Neutrophils % Seg Neuts % (Manual) Lymphocytes % (Manual) Seg Neutrophils # Seg Neutrophils # Man Lymphocytes # (Manual) Monocytes # (Manual) PT INR D-Dimer ABG pH POC ABG pCO2 POC ABG pO2 ABG pO2 ABG HCO3 ABG Base Excess ABG Hemoglobin ABG Oxyhemoglobin Carboxyhemoglobin Sodium Potassium Chloride Carbon Dioxide BUN 88 H Creatinine 6.0 H Glucose 254 H POC Glucose 279 H 253 H Hemoglobin A1c Calcium 6.8 L Ferritin Alkaline Phosphatase Lactate Dehydrogenase Total Creatine Kinase C-Reactive Protein Albumin Lllzn-4-Waejubzty Dxdze-2-Airpajhoh Beta Globulins PEP Interpretation Triglycerides Urine Creatinine Complement C3 Complement C4 Coronavirus (PCR) 06/14/20 06/14/20 06/14/20 06:00 12:49 17:25 WBC RBC Hgb Hct MCHC RDW Lymph % (Auto) Lymph # [place] # Seg Neutrophils % Seg Neuts % (Manual) Lymphocytes % (Manual) Seg Neutrophils # Seg Neutrophils # Man Lymphocytes # (Manual) Monocytes # (Manual) PT INR D-Dimer ABG pH 7.270 L POC ABG pCO2 POC ABG pO2 ABG pO2 163.1 H ABG HCO3 29.6 H ABG Base Excess ABG Hemoglobin 5.5 L ABG Oxyhemoglobin Carboxyhemoglobin Sodium Potassium Chloride Carbon Dioxide BUN Creatinine Glucose POC Glucose 244 H 208 H Hemoglobin A1c Calcium Ferritin Alkaline Phosphatase Lactate Dehydrogenase Total Creatine Kinase C-Reactive Protein Albumin Udkbh-8-Wdmxgkjox Ucosj-3-Whaozmovu Beta Globulins PEP Interpretation Triglycerides Urine Creatinine Complement C3 Complement C4 Coronavirus (PCR) 06/15/20 06/15/20 06/15/20 00:29 03:21 03:21 WBC 33.0 H RBC 3.18 L Hgb 9.3 L Hct 28.0 L D MCHC RDW 15.4 H Lymph % (Auto) Lymph # [place] # Seg Neutrophils % Seg Neuts % (Manual) 94.0 H Lymphocytes % (Manual) 2.0 L Seg Neutrophils # Seg Neutrophils # Man 31.0 H Lymphocytes # (Manual) 0.7 L Monocytes # (Manual) 1.3 H PT INR D-Dimer ABG pH POC ABG pCO2 POC ABG pO2 ABG pO2 ABG HCO3 ABG Base Excess ABG Hemoglobin ABG Oxyhemoglobin Carboxyhemoglobin Sodium Potassium Chloride 94.4 L Carbon Dioxide BUN 96 H Creatinine 6.4 H Glucose 234 H POC Glucose 199 H Hemoglobin A1c Calcium 7.7 L Ferritin Alkaline Phosphatase Lactate Dehydrogenase Total Creatine Kinase C-Reactive Protein Albumin Mkhsl-5-Pmpjhdydy Emprj-3-Lglskwwqc Beta Globulins PEP Interpretation Triglycerides 268 H Urine Creatinine Complement C3 Complement C4 Coronavirus (PCR) 06/15/20 05:23 WBC RBC Hgb Hct MCHC RDW Lymph % (Auto) Lymph # [place] # Seg Neutrophils % Seg Neuts % (Manual) Lymphocytes % (Manual) Seg Neutrophils # Seg Neutrophils # Man Lymphocytes # (Manual) Monocytes # (Manual) PT INR D-Dimer ABG pH POC ABG pCO2 POC ABG pO2 ABG pO2 ABG HCO3 ABG Base Excess ABG Hemoglobin ABG Oxyhemoglobin Carboxyhemoglobin Sodium Potassium Chloride Carbon Dioxide BUN Creatinine Glucose POC Glucose 272 H Hemoglobin A1c Calcium Ferritin Alkaline Phosphatase Lactate Dehydrogenase Total Creatine Kinase C-Reactive Protein Albumin Euumf-4-Rsqqgbhdl Nlycv-0-Vdzqafwln Beta Globulins PEP Interpretation Triglycerides Urine Creatinine Complement C3 Complement C4 Coronavirus (PCR)
[2020-06-15] MEDS: PANTOPRAZOLE 40 MG INJ IV SCH ×2 (09:10→22:37)
[2020-06-15] MEDS: ENOXAPARIN 100 MG/1 ML INJ SUB-Q SCH (09:10)
[2020-06-15] MEDS: CEFEPIME/NS 1 GM/100 ML 1 GM/100 ML BAG IV SCH (09:11)
--- NOTE | 2020-06-15 09:26 | Progress Note ---
Assessment and Plan Assessment and plan: 54 year old male presenting with shortness of breath, with hypoxia on admission, saturation in the low 80s. Here, his chest x-ray showed bilateral infiltrates and COVID-19 test was positive. He was admitted to the hospital. Patient was started on steroids and ID and pulmonology were consulted. 06/02: Continue current management. Patient on high flow. If can tolerate prone recommend prone position during hours of sleep. 06/03: Continue supportive care. Overall prognosis is guarded. Will discuss proceed with obtaining consent for convalescent plasma. Poor prognosis considering COVID-19 and complicated by renal failure. 06/04: Continue current therapy consent obtained for convalescent plasma. Will discuss with laboratory to obtain the plasma. 06/05: Continue supportive care. Poor prognosis. Patient will like to think about plasma therapy and not ready to sign the consent now. 06/06: Patient remains on high flow with hypoxia persistent despite 100%. Still wants to think about the convalescent plasma therapy. Continue current support with pulmonary assistance. Mild improvement in pulmonary status still not a candidate for Remdesivir. Will obtain nephrology consultation to assist in management 06/07. Patient seen on BiPAP today. Nephrology consulted for impaired renal function. 06/08. He agrees to get convalescent plasma. Order placed in chart. Discussed with blood bank. 06/09: Convalescent plasma ordered, poor prognosis, still monitoring renal function, continues on BIPAP. Check markers for COVID19. continue steroids to complete 10 days. 06/10: Continue supportive care, cardiology input noted, will start on cardizem drip, Continue aniticoagulation, Renal function worse, will monitor and discuss with nephrology about possible initiating HD. 06/11/2020 -Patient is on continuous BiPAP. Pulmonary is following. -On amiodarone and IV metoprolol as needed. Cardiology is following. Patient is on anticoagulation. -Nephrology is following. Potassium level is ok 06/12/2020 -Patient's oxygen saturation was 80% despite 100% BiPAP -Pulmonary intubated the patient, currently sedated and on mechanical ventilator -Patient is still in A. fib and heart rate is not controlled, cardiology recommend to continue with amiodarone GTT, if heart rate didn't controlled after intubation will start with Cardizem drip 06/13/2020 -Was coded earlier this morning and was resuscitated successfully according to ACLS protocol -Patient was hypotensive and is on Levophed -ABG was done and pH was 7, on BMP potassium is 8.8, creatinine is 6.4. I put the patient on calcium gluconate, Kayexalate, bicarb drip and discussed with hat finishing materials preparer Dr. Lux and he agreed with the plan of care. He said he is going to do dialysis. -Patient prognosis is grave 06/14 -Was coded yesterday morning and was resuscitated successfully according to ACLS protocol -Patient was hypotensive and is on Levophed - 06/13 ABG was done and pH was 7, on BMP potassium is 8.8, creatinine is 6.4. I put the patient on calcium gluconate, Kayexalate, bicarb drip and discussed with hat finishing materials preparer Dr. Lux and he agreed with the plan of care. He had dialysis yesterday and K is 4.7, PH is 7.2 -Anoxic encephalopathy; patient was coded -Patient prognosis is grave 06/15 -Patient is intubated, sedated and on mechanical ventilation -Labs and medications were noted -Patient is on IV antibiotics and IV Solu-Medrol -Patient started with dialysis per nephrology Problems Acute Hypoxic Respiratory failure Atrial Fibrillation with RVR Luekocytosis- Persist 2018 novel sampson virus Pneumonia Bilateral penumonia KEITH WITH VASOMOTOR NEPHROPATHY ON CKD Stage 3 HTN DM with hyperglycemia Plan Patient is intubated on 06/12/2020 Continue steroids Remdesivir precluded due to renal function Continue antibiotics Convalescent plasma ordered as he now consents ID, pulmonology and nephrology following Aspiration precautions DVT/GI prophy Plan discussed with the patient The high probability of a clinically significant, sudden or life threatening deterioration of the [pulmonary] system(s) required my full and direct attention , intervention and personal management. The aggregate critical care time was [35] minutes. This time is in addition to time spent performing reported procedures but includes the following: [x] Data Review and interpretation [x] Patient assessment and monitoring of vital signs [x] Documentation [x] Medication orders and management History Interval history: Patient was seen and evaluated this morning Patient's saturation was 80 despite on 100% BiPAP Pulmonary intubated the patient [06/12/2020] Patient was coded and successfully resuscitated according to ACLS protocol 06/13/20 Hospitalist Physical - Physical exam Narrative exam: Patient is intubated and on mechanical ventilator The patient is obese Vital signs as documented. Head exam is unremarkable. No scleral icterus . Neck is without jugular venous distension, thyromegaly, or carotid bruits. Lungs for mechanical ventilation Cardiac exam reveals regular rate and Rhythm. Abdominal exam reveals normal bowel sounds, nontender, no organomegaly. Extremities are nonedematous and both femoral and pedal pulses are normal. PATIENT OBSERVER: Sedated. - Constitutional Vitals: Temp Pulse Resp BP Pulse Ox 99.0 F 102 H 22 102/61 95 06/15/20 08:00 06/15/20 08:35 06/15/20 08:30 06/15/20 08:35 06/15/20 08:35 General appearance: Present: no acute distress HEART Score - HEART Score Troponin: Troponin T 0.021 ng/mL (0.00-0.029) 05/31/20 15:23 Results - Labs CBC & Chem 7: 06/15/20 03:21 06/15/20 03:21 Labs: Laboratory Last Values WBC 33.0 K/mm3 (4.5-11.0) H 06/15/20 03:21 RBC 3.18 M/mm3 (3.65-5.03) L 06/15/20 03:21 Hgb 9.3 gm/dl (11.8-15.2) L 06/15/20 03:21 Hct 28.0 % (35.5-45.6) L D 06/15/20 03:21 MCV 88 fl (84-94) 06/15/20 03:21 MCH 29 pg (28-32) 06/15/20 03:21 MCHC 33 % (32-34) 06/15/20 03:21 RDW 15.4 % (13.2-15.2) H 06/15/20 03:21 Plt Count 146 K/mm3 (140-440) 06/15/20 03:21 Lymph % (Auto) 2.4 % (13.4-35.0) L 06/13/20 05:06 [place] % (Auto) 5.3 % (0.0-7.3) 06/13/20 05:06 Eos % (Auto) 0.0 % (0.0-4.3) 06/13/20 05:06 Baso % (Auto) 0.3 % (0.0-1.8) 06/13/20 05:06 Lymph # 0.7 K/mm3 (1.2-5.4) L 06/13/20 05:06 [place] # 1.6 K/mm3 (0.0-0.8) H 06/13/20 05:06 Eos # 0.0 K/mm3 (0.0-0.4) 06/13/20 05:06 Baso # 0.1 K/mm3 (0.0-0.1) 06/13/20 05:06 Add Manual Diff Complete 06/15/20 03:21 Total Counted 100 06/15/20 03:21 Seg Neutrophils % Dye Beck Reel Operator 06/15/20 03:21 Seg Neuts % (Manual) 94.0 % (40.0-70.0) H 06/15/20 03:21 Band Neutrophils % 0 % 06/15/20 03:21 Lymphocytes % (Manual) 2.0 % (13.4-35.0) L 06/15/20 03:21 Reactive Lymphs % (Man) 0 % 06/15/20 03:21 Monocytes % (Manual) 4.0 % (0.0-7.3) 06/15/20 03:21 Eosinophils % (Manual) 0 % (0.0-4.3) 06/15/20 03:21 Basophils % (Manual) 0 % (0.0-1.8) 06/15/20 03:21 Metamyelocytes % 0 % 06/15/20 03:21 Myelocytes % 0 % 06/15/20 03:21 Promyelocytes % 0 % 06/15/20 03:21 Blast Cells % 0 % 06/15/20 03:21 Nucleated RBC % Not Reportable 06/15/20 03:21 Seg Neutrophils # 27.9 K/mm3 (1.8-7.7) H 06/13/20 05:06 Seg Neutrophils # Man 31.0 K/mm3 (1.8-7.7) H 06/15/20 03:21 Band Neutrophils # 0.0 K/mm3 06/15/20 03:21 Lymphocytes # (Manual) 0.7 K/mm3 (1.2-5.4) L 06/15/20 03:21 Abs React Lymphs (Man) 0.0 K/mm3 06/15/20 03:21 Monocytes # (Manual) 1.3 K/mm3 (0.0-0.8) H 06/15/20 03:21 Eosinophils # (Manual) 0.0 K/mm3 (0.0-0.4) 06/15/20 03:21 Basophils # (Manual) 0.0 K/mm3 (0.0-0.1) 06/15/20 03:21 Metamyelocytes # 0.0 K/mm3 06/15/20 03:21 Myelocytes # 0.0 K/mm3 06/15/20 03:21 Promyelocytes # 0.0 K/mm3 06/15/20 03:21 Blast Cells # 0.0 K/mm3 06/15/20 03:21 WBC Morphology Not Reportable 06/15/20 03:21 Hypersegmented Neuts Not Reportable 06/15/20 03:21 Hyposegmented Neuts Not Reportable 06/15/20 03:21 Hypogranular Neuts Not Reportable 06/15/20 03:21 Smudge Cells Not Reportable 06/15/20 03:21 Toxic Granulation Not Reportable 06/15/20 03:21 Toxic Vacuolation Not Reportable 06/15/20 03:21 Dohle Bodies Not Reportable 06/15/20 03:21 Pelger-Huet Anomaly Not Reportable 06/15/20 03:21 Edwige Rods Not Reportable 06/15/20 03:21 Platelet Estimate Consistent w auto 06/15/20 03:21 Clumped Platelets Not Reportable 06/15/20 03:21 Plt Clumps, EDTA Not Reportable 06/15/20 03:21 Large Platelets Not Reportable 06/15/20 03:21 Giant Platelets Not Reportable 06/15/20 03:21 Platelet Satelliting Not Reportable 06/15/20 03:21 Plt Morphology Comment Not Reportable 06/15/20 03:21 RBC Morphology Not Reportable 06/15/20 03:21 Dimorphic RBCs Not Reportable 06/15/20 03:21 Polychromasia Not Reportable 06/15/20 03:21 Hypochromasia Few 06/15/20 03:21 Poikilocytosis Not Reportable 06/15/20 03:21 Anisocytosis Few 06/15/20 03:21 Microcytosis Not Reportable 06/15/20 03:21 Macrocytosis Not Reportable 06/15/20 03:21 Spherocytes Not Reportable 06/15/20 03:21 Pappenheimer Bodies Not Reportable 06/15/20 03:21 Sickle Cells Not Reportable 06/15/20 03:21 Target Cells Few 06/15/20 03:21 Tear Drop Cells Not Reportable 06/15/20 03:21 Ovalocytes Not Reportable 06/15/20 03:21 Stomatocytes Few 06/15/20 03:21 Helmet Cells Not Reportable 06/15/20 03:21 [place] Bodies Not Reportable 06/15/20 03:21 [place] Rings Not Reportable 06/15/20 03:21 [place] Cells Not Reportable 06/15/20 03:21 Bite Cells Not Reportable 06/15/20 03:21 Crenated Cell Not Reportable 06/15/20 03:21 Elliptocytes Not Reportable 06/15/20 03:21 Acanthocytes (Spur) Not Reportable 06/15/20 03:21 Rouleaux Not Reportable 06/15/20 03:21 Hemoglobin C Crystals Not Reportable 06/15/20 03:21 Schistocytes Not Reportable 06/15/20 03:21 Malaria parasites Not Reportable 06/15/20 03:21 [place] Bodies Not Reportable 06/15/20 03:21 Hem Pathologist Commnt No 06/15/20 03:21 PT 11.5 Sec. (12.2-14.9) L 05/31/20 15:23 INR 0.83 (0.87-1.13) L 05/31/20 15:23 D-Dimer > 94317 ng/mlDDU (0-234) H 06/09/20 09:21 ABG pH 7.270 pH Units (7.350-7.450) L 06/14/20 06:00 POC ABG pCO2 88.1 mmHg (32.0-48.0) H 06/12/20 13:17 ABG pCO2 65.8 mm Hg 06/14/20 06:00 POC ABG pO2 98.3 mmHg (83-108) 06/12/20 13:17 ABG pO2 163.1 mm Hg (80.0-90.0) H 06/14/20 06:00 POC ABG HCO3 24.2 06/12/20 13:17 ABG HCO3 29.6 mmol/L (20.0-26.0) H 06/14/20 06:00 ABG O2 Saturation 98.8 % (95.0-99.0) 06/14/20 06:00 ABG O2 Content 7.9 (0.0-44) 06/14/20 06:00 POC ABG Base Excess -8.5 06/12/20 13:17 ABG Base Excess 2.5 mmol/L (-2.0-3.0) 06/14/20 06:00 ABG Hemoglobin 5.5 gm/dl (14.0-18.0) L 06/14/20 06:00 ABG Oxyhemoglobin 92.7 (94-98) L 06/12/20 13:17 ABG Carboxyhemoglobin 1.1 % (0.0-5.0) 06/14/20 06:00 ABG Methemoglobin 0.7 % (0.0-1.5) 06/14/20 06:00 Oxyhemoglobin 96.9 % (95.0-99.0) 06/14/20 06:00 Carboxyhemoglobin 0.1 (0.5-1.5) L 06/12/20 13:17 FiO2 100 % 06/14/20 06:00 Sodium 138 mmol/L (137-145) 06/15/20 03:21 Potassium 4.7 mmol/L (3.6-5.0) 06/15/20 03:21 Chloride 94.4 mmol/L (98-107) L 06/15/20 03:21 Carbon Dioxide 23 mmol/L (22-30) 06/15/20 03:21 Anion Gap 25 mmol/L 06/15/20 03:21 BUN 96 mg/dL (9-20) H 06/15/20 03:21 Creatinine 6.4 mg/dL (0.8-1.3) H 06/15/20 03:21 Estimated GFR 11 ml/min 06/15/20 03:21 BUN/Creatinine Ratio 15 % 06/15/20 03:21 Glucose 234 mg/dL (75-100) H 06/15/20 03:21 POC Glucose 272 (70-105) H 06/15/20 05:23 Hemoglobin A1c 8.5 % (4-6) H 05/31/20 16:49 Calcium 7.7 mg/dL (8.4-10.2) L 06/15/20 03:21 Magnesium 2.20 mg/dL (1.7-2.3) 05/31/20 15:23 Ferritin 1045.0 ng/mL (30.0-300.0) H 06/09/20 09:21 Total Bilirubin 0.30 mg/dL (0.1-1.2) 06/13/20 05:06 AST 35 units/L (5-40) 06/13/20 05:06 ALT 37 units/L (7-56) 06/13/20 05:06 Alkaline Phosphatase 115 units/L (35-129) 06/13/20 05:06 Lactate Dehydrogenase 461 units/L (91-180) H 06/09/20 09:21 Total Creatine Kinase 325 units/L (55-170) H 05/31/20 15:23 Troponin T 0.021 ng/mL (0.00-0.029) 05/31/20 15:23 C-Reactive Protein 9.30 mg/dL (0.00-1.30) H 06/09/20 09:21 NT-Pro-B Natriuret Pep 111.3 pg/mL (0-900) 06/01/20 13:41 Serum Total Protein 6.8 g/dL (6.1-8.1) 06/04/20 04:17 Total Protein 6.7 g/dL (6.3-8.2) 06/13/20 05:06 Albumin 2.5 g/dL (3.9-5) L 06/13/20 05:06 Albumin/Globulin Ratio 0.6 % 06/13/20 05:06 Zpqig-9-Qrciovdle 0.5 g/dL (0.2-0.3) H 06/04/20 04:17 Fvumi-0-Aimithvug 1.6 g/dL (0.5-0.9) H 06/04/20 04:17 Beta Globulins 0.6 g/dL (0.2-0.5) H 06/04/20 04:17 Gamma Globulins 1.2 g/dL (0.8-1.7) 06/04/20 04:17 Abnorm Protein Band 1 see below 06/04/20 04:17 PEP Interpretation see below H 06/04/20 04:17 Triglycerides 268 mg/dL (2-149) H 06/15/20 03:21 Procalcitonin 0.61 ng/mL (<0.15) 06/12/20 05:34 Urine Color Yellow (Yellow) 06/01/20 Unknown Urine Turbidity Clear (Clear) 06/01/20 Unknown Urine pH 5.0 (5.0-7.0) 06/01/20 Unknown Ur Specific [place] 1.018 (1.003-1.030) 06/01/20 Unknown Urine Protein >500 mg/dL (Negative) 06/01/20 Unknown Urine Glucose (UA) >=500 mg/dL (Negative) 06/01/20 Unknown Urine Ketones Tr mg/dL (Negative) 06/01/20 Unknown Urine Blood Mod (Negative) 06/01/20 Unknown Urine Nitrite Neg (Negative) 06/01/20 Unknown Urine Bilirubin Neg (Negative) 06/01/20 Unknown Urine Urobilinogen < 2.0 mg/dL (<2.0) 06/01/20 Unknown Ur Leukocyte Esterase Neg (Negative) 06/01/20 Unknown Urine WBC (Auto) 4.0 /HPF (0.0-6.0) 06/01/20 Unknown Urine RBC (Auto) 9.0 /HPF (0.0-6.0) 06/01/20 Unknown U Epithel Cells (Auto) 1.0 /HPF (0-13.0) 06/01/20 Unknown Urine Mucus Few /HPF 06/01/20 Unknown Urine Eosinophils None seen (None Seen) 06/01/20 Unknown Urine Creatinine 161.6 mg/dL (0.1-20.0) H 06/01/20 Unknown Urine Sodium 47 mmol/L 06/01/20 Unknown FLACO Screen Negative (Negative) 06/03/20 13:17 Proteinase 3 (PR3) Ab <1.0 AI (<1.0) 06/03/20 13:17 Myeloperoxidase Ab <1.0 AI (<1.0) 06/03/20 13:17 Double Strand DNA Ab See scanned result 06/03/20 13:17 Complement C3 223 mg/dL (82-185) H 06/03/20 10:39 Complement C4 64 mg/dL (15-53) H 06/03/20 10:39 Coronavirus (PCR) Positive (Negative) A 06/01/20 Unknown Hepatitis A IgM Ab Non-reactive (NonReactive) 06/03/20 10:39 Hep Bs Antigen Non-reactive (Negative) 06/03/20 10:39 Hep B Core IgM Ab Non-reactive (NonReactive) 06/03/20 10:39 Hepatitis C Antibody Non-reactive (NonReactive) 06/03/20 10:39 Blood Type A POSITIVE 06/08/20 09:41 Antibody Screen Negative 06/08/20 09:41 Hess/IV: Voiding Method Indwelling Catheter IV Catheter Type [Left Femoral Triple Lumen Cath ] IV Catheter Type [Right Triple Lumen Cath Femoral] IV Catheter Type [Right Upper Peripheral IV arm] IV Catheter Type [Right INT / Saline Lock Antecubital] Active Medications - Current Medications Current Medications: Generic Name Dose Route Start Last Admin Trade Name Freq PRN Reason Stop Dose Admin Acetaminophen 650 mg 05/31/20 15:49 06/14/20 00:42 Tylenol PO 650 mg Q6H PRN Administration Pain MILD(1-3)/Fever >100.5/LEBRON Albuterol 2.5 mg 05/31/20 15:49 Proventil IH Q3HRT PRN Shortness Of Breath Atorvastatin Calcium 20 mg 05/31/20 22:00 06/15/20 01:14 Lipitor PO 20 mg QHS CHERI Administration Bisacodyl 10 mg 05/31/20 15:57 Dulcolax [place] QDAY PRN Constipation unrelieved by MOM Chlorpromazine HCl 10 mg 05/31/20 15:57 Thorazine PO Q6H PRN Hiccups Dextrose 50 ml 05/31/20 15:59 06/07/20 10:48 D50w (25gm) Syringe IV 20 ml Q30MIN PRN Administration Hypoglycemia Protocol Enoxaparin Sodium 100 mg 06/10/20 10:00 06/15/20 09:10 Enoxaparin SUB-Q 100 mg Q24HR CHERI Administration Fentanyl 25 mcg 06/14/20 11:26 06/14/20 13:09 Sublimaze IV 25 mcg Q2H PRN Administration RESPIRATORY DISTRESS Hydrophilic Ointment 1 applic 06/12/20 12:11 Vaseline Lip Therapy TP Q2HR PRN Dry Lips Amiodarone HCl 900 mg/ 500 mls @ 33.333 mls/hr 06/11/20 11:30 06/14/20 18:38 Dextrose IV 0.5 mg/min DIRECT CHERI 16.667 mls/hr Administration Protocol 1 MG/MIN Norepinephrine 4 mg in 250 mls @ 7.5 mls/hr 06/12/20 14:00 06/15/20 09:12 Levophed Drip 4 Mg/Ns 250 Ml IV 6 mcg/min TITR CHERI 22.5 mls/hr Administration Protocol 2 MCG/MIN Cefepime HCl 1 gm in 100 mls @ 200 mls/hr 06/14/20 10:00 06/15/20 09:11 Cefepime/Ns 1 Gm/100 Ml IV 200 mls/hr Q24HR CHERI Administration Protocol Sodium Chloride 100 mls @ 999 mls/hr 06/14/20 08:00 Nacl 0.9% IV LNIO PRN Hypotension Sodium Chloride 100 mls @ 999 mls/hr 06/15/20 08:14 Nacl 0.9% IV LINO PRN Hypotension Insulin Glargine 20 units 06/12/20 22:00 06/15/20 01:14 Lantus SUB-Q 20 units QHS [facility] Administration Insulin Human Lispro 0 unit 06/11/20 12:00 06/15/20 06:34 Humalog SUB-Q 6 unit Q6HR [facility] Administration Protocol Insulin Human Lispro 10 unit 06/12/20 16:30 06/15/20 08:18 Humalog SUB-Q 10 unit AC [facility] Administration Methylprednisolone Sodium Succinate 40 mg 06/11/20 14:00 06/15/20 06:34 Solu-Medrol IV 40 mg Q8HR CHERI Administration Metoprolol Tartrate 5 mg 06/09/20 14:52 06/11/20 05:13 Metoprolol IV 5 mg Q6HR PRN Administration Tachyarrhythmias Multi-Ingred Cream/Lotion/Oil/Oint 1 applic 06/12/20 12:11 Artificial Tears Ophth Oint OU Q4HR PRN Dry Eye(s) Naloxone HCl 0.1 mg 05/31/20 15:49 Naloxone IV Q2MIN PRN Res Rate </= 8 or 02 SAT < 92% Ondansetron HCl 4 mg 05/31/20 15:57 Zofran IV Q8H PRN N/V unrelieved by Anna Pantoprazole Sodium 40 mg 06/15/20 10:00 06/15/20 09:10 Protonix IV 40 mg BID CHERI Administration Sodium Chloride 10 ml 05/31/20 22:00 06/15/20 09:13 Sodium Chloride Flush Syringe 10 Ml IV 10 ml BID CHERI Administration Sodium Chloride 10 ml 05/31/20 15:49 Sodium Chloride Flush Syringe 10 Ml IV PRN PRN LINE FLUSH Nutrition/Malnutrition Assess - Dietary Evaluation Nutrition/Malnutrition Findings: Nutrition Notes Start: 06/01/20 10:42 Freq: Status: Active Protocol: Document 06/13/20 14:35 JEFFERSON (Rec: 06/13/20 14:39 JEFFERSON [id number]) Co-Sign 06/13/20 14:35 LP Nutrition Notes Need for Assessment generated from: MD Order Initial or Follow up Reassessment Current Diagnosis CKD(stage I-IV),Diabetes, Hypertension,Stroke Other Pertinent Diagnosis COVID-19 (+) Current Diet Renal Labs/Tests Na 148 K 8.8 BUN 118 Cr 6.4 Gluc 272 Pertinent Medications Lantus 20 units Humalog 10 units Solu-Medrol Levophed 97.5 ml/hr NS 1000 ml Height 5 ft 9 in Weight 113 kg [place] Body Weight (kg) 72.72 BMI 36.8 Weight Status Obese Subjective/Other Information Pt now on vent 06/12. Per RN and chart, NGT for suctioning only. RN noted GI distended. No BM since 06/11. Burn Absent Trauma Absent GI Symptoms Other Skin Integrity/Comment Raymundo Score 13, skin intact Current % PO Negligible Minimum of two criteria No physical signs of malnutrition #2 Nutrition Diagnosis Inadequate oral intake Etiology mechanical ventilation As Evidenced by Signs and Symptoms pt on vent and unable to po. #1 Nutrition Diagnosis Altered nutrition-related laboratory values As Evidenced by Signs and Symptoms HgbA1c 8.5 Diagnosis Progress(for reassessment Continues documentation) Is patient on ventilator? Yes Is Patient Ambulatory and/or Out of Bed No [facility] 2344.476 Kcal/Kg value to use for calculation 16 Approximate Energy Requirements Using 1808 kcal/Kg Additional Notes Protein Needs 145g (up to 2g/ kg IBW) Fluid: 1ml/kcal Nutrition Intervention Change Diet Order: Recommend TF or diet advancement once medically able. Nutrition Support: If TF, Nepro 1.8 40ml/hr. Flush 200ml q4hr. Kcal 1,728 Protein (gm) 78 Fluid (mL) 698 Goal #1 Improve BG control Goal #2 Pt resumes nutrient intake within 24-48hr. Anticipated Discharge Needs: Carbohydrate Controlled Diet Follow-Up By: 06/18/20 Additional Comments f/u on intakes and diet education needs if pt stable. If vent, check for TF consult.
--- NOTE | 2020-06-15 09:32 | Progress Note ---
Assessment and Plan 1. Acute kidney injury: KEITH superimposed on CKD stage 3 in the setting of severe COVID infection and Shock. Renal US pending (spoke to [employer]). UA results noted. Monitor renal function. Avoid nephrotoxic agents. Meds dosage based on GFR. Monitor for [employer] needs. Patient required hemodialysis due to worsening renal function and hyperkalemia. Explained patient's (06/13) the indications, benefits, risks and al ternatives involved in hemodialysis. She voiced understanding and gave consent to proceed. Hemodialysis: 06/13, 06/14, 06/15. 2. FEN: Hyperkalemia, improved, HD today, monitor. Metabolic acidosis, improved, monitor. Monitor lytes and volume status. 3. Acute hypoxic respiratory failure: /2 COVID-19 PNA. Intubated 06/12. Followed by Pulmonary. 4. Bilateral COVID-19 PNA: Followed by ID. 5. S/p Cardiac arrest, 06/13: Monitor. 6. Shock: On Levophed. 7. A.fib with RVR: On Amiodarone. 8. DM with hyperglycemia: Accu-Check, sliding scale coverage, ADA diet. - Subjective: Patient was seen and examined from bedside. In ICU. - General Appearance General appearance: well-developed, appears stated age, no distress noted, intubated, on vent HEENT: ATNC Neck: Trachea midline Respiratory: MV sounds Heart: S1S2, no murmurs Gastrointestinal: soft, bowel sounds heard Integumentary: no rash, warm and dry Ext: no edema Neurologic: not responding Hemodialysis access: L femoral catheter Subjective Date of service: 06/15/20 Principal diagnosis: COVID-19 PNA, AF RVR Objective - Vital Signs Vital signs: Vital Signs - 12hr 06/14/20 06/14/20 06/14/20 21:45 22:00 22:15 Temperature Pulse Rate 101 H 100 H 101 H Pulse Rate [ From Monitor] Respiratory 32 H 33 H 34 H Rate Blood Pressure 114/71 109/66 104/69 O2 Sat by Pulse 99 99 99 Oximetry 06/14/20 06/14/20 06/14/20 22:30 22:36 22:45 Temperature Pulse Rate 102 H 98 H 101 H Pulse Rate [ From Monitor] Respiratory 34 H 34 H 34 H Rate Blood Pressure 102/66 103/65 103/63 O2 Sat by Pulse 99 99 99 Oximetry 06/14/20 06/14/20 06/14/20 23:00 23:04 23:15 Temperature Pulse Rate 101 H 101 H 102 H Pulse Rate [ From Monitor] Respiratory 33 H 31 H 33 H Rate Blood Pressure 101/64 101/64 100/68 O2 Sat by Pulse 99 98 Oximetry 06/14/20 06/14/20 06/14/20 23:30 23:45 23:51 Temperature 99.2 F Pulse Rate 100 H 101 H Pulse Rate [ From Monitor] Respiratory 33 H 33 H Rate Blood Pressure 108/66 111/66 O2 Sat by Pulse 99 99 Oximetry 06/15/20 06/15/20 06/15/20 00:00 00:15 00:17 Temperature Pulse Rate 100 H 101 H 100 H Pulse Rate [ From Monitor] Respiratory 33 H 29 H Rate Blood Pressure 104/68 99/75 99/75 O2 Sat by Pulse 100 99 99 Oximetry 06/15/20 06/15/20 06/15/20 00:30 00:45 01:00 Temperature Pulse Rate 98 H 98 H 102 H Pulse Rate [ 100 H From Monitor] Respiratory 34 H 34 H 33 H Rate Blood Pressure 107/69 109/68 98/61 O2 Sat by Pulse 99 99 97 Oximetry 06/15/20 06/15/20 06/15/20 01:15 01:30 01:45 Temperature Pulse Rate 101 H 96 H 98 H Pulse Rate [ From Monitor] Respiratory 32 H 34 H 31 H Rate Blood Pressure 97/63 95/71 129/89 O2 Sat by Pulse 99 99 99 Oximetry 06/15/20 06/15/20 06/15/20 02:00 02:15 02:30 Temperature Pulse Rate 96 H 100 H 97 H Pulse Rate [ From Monitor] Respiratory 25 H 34 H 34 H Rate Blood Pressure 131/83 117/78 108/76 O2 Sat by Pulse 100 100 98 Oximetry 06/15/20 06/15/20 06/15/20 02:45 03:00 03:15 Temperature Pulse Rate 97 H 100 H 100 H Pulse Rate [ From Monitor] Respiratory 34 H 33 H 33 H Rate Blood Pressure 112/68 106/69 108/70 O2 Sat by Pulse 100 99 98 Oximetry 06/15/20 06/15/20 06/15/20 03:17 03:30 03:45 Temperature 99.8 F H Pulse Rate 100 H 100 H Pulse Rate [ From Monitor] Respiratory 32 H 34 H Rate Blood Pressure 106/72 107/71 O2 Sat by Pulse 99 98 Oximetry 06/15/20 06/15/20 06/15/20 04:00 04:03 04:15 Temperature Pulse Rate 101 H 102 H 101 H Pulse Rate [ 102 H From Monitor] Respiratory 32 H 32 H 32 H Rate Blood Pressure 106/70 110/70 O2 Sat by Pulse 99 96 99 Oximetry 06/15/20 06/15/20 06/15/20 04:26 04:30 04:45 Temperature Pulse Rate 99 H 100 H 99 H Pulse Rate [ From Monitor] Respiratory 32 H 31 H Rate Blood Pressure 110/70 107/69 115/70 O2 Sat by Pulse 99 98 95 Oximetry 06/15/20 06/15/20 06/15/20 05:00 05:15 05:24 Temperature 98.8 F Pulse Rate 97 H 100 H Pulse Rate [ From Monitor] Respiratory 29 H 32 H Rate Blood Pressure 109/64 106/65 O2 Sat by Pulse 94 93 Oximetry 06/15/20 06/15/20 06/15/20 05:30 05:45 06:00 Temperature Pulse Rate 102 H 99 H 100 H Pulse Rate [ From Monitor] Respiratory 32 H 36 H 29 H Rate Blood Pressure 105/68 116/67 103/66 O2 Sat by Pulse 95 94 96 Oximetry 06/15/20 06/15/20 06/15/20 06:15 06:30 06:45 Temperature Pulse Rate 99 H 98 H 100 H Pulse Rate [ From Monitor] Respiratory 25 H 21 34 H Rate Blood Pressure 105/69 110/67 115/68 O2 Sat by Pulse 95 96 98 Oximetry 06/15/20 06/15/20 06/15/20 07:00 07:15 07:30 Temperature Pulse Rate 98 H 100 H 101 H Pulse Rate [ From Monitor] Respiratory 23 35 H 20 Rate Blood Pressure 112/67 120/69 110/68 O2 Sat by Pulse 95 96 95 Oximetry 06/15/20 06/15/20 06/15/20 07:45 08:00 08:15 Temperature 99.0 F Pulse Rate 101 H 102 H 100 H Pulse Rate [ 102 H From Monitor] Respiratory 29 H 26 H 28 H Rate Blood Pressure 108/60 104/64 109/68 O2 Sat by Pulse 95 97 96 Oximetry 06/15/20 06/15/20 08:30 08:35 Temperature Pulse Rate 100 H 102 H Pulse Rate [ From Monitor] Respiratory 22 Rate Blood Pressure 102/61 102/61 O2 Sat by Pulse 94 95 Oximetry - Lab 06/15/20 03:21 06/15/20 03:21 Most recent lab results ABG pH 7.270 pH Units (7.350-7.450) L 06/14/20 06:00 ABG pCO2 65.8 mm Hg 06/14/20 06:00 ABG pO2 163.1 mm Hg (80.0-90.0) H 06/14/20 06:00 ABG HCO3 29.6 mmol/L (20.0-26.0) H 06/14/20 06:00 ABG O2 Saturation 98.8 % (95.0-99.0) 06/14/20 06:00 Calcium 7.7 mg/dL (8.4-10.2) L 06/15/20 03:21 Magnesium 2.20 mg/dL (1.7-2.3) 05/31/20 15:23 Urine Creatinine 161.6 mg/dL (0.1-20.0) H 06/01/20 Unknown Urine Sodium 47 mmol/L 06/01/20 Unknown Medications & Allergies - Medications Allergies/Adverse Reactions: Allergies lisinopril Allergy (Verified 05/31/20 13:03) Angioedema Penicillins Allergy (Verified 05/31/20 13:03) Hives Home Medications: Home Medications Medication Instructions Recorded Confirmed Last Taken Type Acetaminophen [Acetaminophen TAB] 650 mg PO Q4H PRN #30 tablet 02/15/17 Unknown Rx AtorvaSTATin [Lipitor] 20 mg PO QHS tablet 02/15/17 Unknown Rx Cipro/Dexameth 0.3/0.1% [Ciprodex 4 drops AU BID bottle 02/15/17 Unknown Rx OTIC] Detemir (Nf) [Levemir (Nf)] 100 units SUB-Q QHS units 02/15/17 Unknown Rx Dextrose 50% in Water [D50W (25GM) 50 ml IV PRN PRN #30 syringe 02/15/17 Unknown Rx Syringe] Enoxaparin 40 mg SUB-Q QDAY syringe 02/15/17 Unknown Rx Lipase/Protease/Amylase [Pancreaze 1 each FEEDTUBE PRN PRN #30 capsule 02/15/17 Unknown Rx 10,500 Unit] Metoprolol [Lopressor TAB] 25 mg PO BID tablet 02/15/17 Unknown Rx Metoprolol [Lopressor TAB] 25 mg PO BID #60 tablet 02/15/17 Unknown Rx Ondansetron [Zofran INJ] 4 mg IV Q8H PRN #30 vial 02/15/17 Unknown Rx Prednisone [predniSONE 5 mg (6-Day 5 mg PO .TAPER #1 tab.ds.pk 02/15/17 Unknown Rx Pack, 21 Tabs)] Simple Syrup 15 ml FEEDTUBE PRN PRN #30 02/15/17 Unknown Rx oral.liqd Simple Syrup 30 ml FEEDTUBE PRN PRN #30 02/15/17 Unknown Rx oral.liqd Sodium Bicarbonate 325 mg FEEDTUBE PRN PRN #30 tablet 02/15/17 Unknown Rx amLODIPine 10 mg PO DAILY tablet 02/15/17 Unknown Rx amLODIPine [Norvasc] 10 mg PO DAILY #30 tab 02/15/17 Unknown Rx bisacodyL [Dulcolax suppos] 10 mg PA QDAY PRN #30 supp.rect 02/15/17 Unknown Rx chlorproMAZINE [Thorazine] 10 mg PO Q6H PRN #30 tablet 02/15/17 Unknown Rx dexAMETHasone [Decadron] 6 mg IV Q6HR vial 02/15/17 Unknown Rx hydrALAZINE [Apresoline INJ] 10 mg IV Q6HR PRN #30 vial 02/15/17 Unknown Rx oxyCODONE /ACETAMINOPHEN [Percocet 1 tab PO Q4H PRN #30 tablet 02/15/17 Unknown Rx 5/325 mg] oxyCODONE /ACETAMINOPHEN [Percocet 1 tab PO Q4HR #30 tab 02/15/17 Unknown Rx 5/325] tiZANidine [Zanaflex 4mg TAB] 4 mg PO Q8H PRN #30 tablet 02/15/17 Unknown Rx Permethrin 5% [Acticin 5% CREAM] 1 applicatio TP ONCE #1 tube 06/11/17 Unknown Rx Azithromycin [Zithromax Z-BENJIE] 250 mg PO DAILY 1 Days tab 11/23/18 Unknown Rx Ondansetron [Zofran Odt] 4 mg PO Q8HR PRN #14 tab.rapdis 11/23/18 Unknown Rx traMADoL [Ultram 50 MG tab] 50 mg PO Q4HR PRN #14 tablet 11/23/18 Unknown Rx Active Medications: Generic Name Dose Route Start Last Admin Trade Name Freq PRN Reason Stop Dose Admin Acetaminophen 650 mg 05/31/20 15:49 06/14/20 00:42 Tylenol PO 650 mg Q6H PRN Administration Pain MILD(1-3)/Fever >100.5/LEBRON Albuterol 2.5 mg 05/31/20 15:49 Proventil IH Q3HRT PRN Shortness Of Breath Atorvastatin Calcium 20 mg 05/31/20 22:00 06/15/20 01:14 Lipitor PO 20 mg QHS CHERI Administration Bisacodyl 10 mg 05/31/20 15:57 Dulcolax PA QDAY PRN Constipation unrelieved by MOM Chlorpromazine HCl 10 mg 05/31/20 15:57 Thorazine PO Q6H PRN Hiccups Dextrose 50 ml 05/31/20 15:59 06/07/20 10:48 D50w (25gm) Syringe IV 20 ml Q30MIN PRN Administration Hypoglycemia Protocol Enoxaparin Sodium 100 mg 06/10/20 10:00 06/15/20 09:10 Enoxaparin SUB-Q 100 mg Q24HR CHERI Administration Fentanyl 25 mcg 06/14/20 11:26 06/14/20 13:09 Sublimaze IV 25 mcg Q2H PRN Administration RESPIRATORY DISTRESS Hydrophilic Ointment 1 applic 06/12/20 12:11 Vaseline Lip Therapy TP Q2HR PRN Dry Lips Amiodarone HCl 900 mg/ 500 mls @ 33.333 mls/hr 06/11/20 11:30 06/14/20 18:38 Dextrose IV 0.5 mg/min DIRECT CHERI 16.667 mls/hr Administration Protocol 1 MG/MIN Norepinephrine 4 mg in 250 mls @ 7.5 mls/hr 06/12/20 14:00 06/15/20 09:12 Levophed Drip 4 Mg/Ns 250 Ml IV 6 mcg/min TITR CHERI 22.5 mls/hr Administration Protocol 2 MCG/MIN Cefepime HCl 1 gm in 100 mls @ 200 mls/hr 06/14/20 10:00 06/15/20 09:11 Cefepime/Ns 1 Gm/100 Ml IV 200 mls/hr Q24HR CHERI Administration Protocol Sodium Chloride 100 mls @ 999 mls/hr 06/14/20 08:00 Nacl 0.9% IV LINO PRN Hypotension Sodium Chloride 100 mls @ 999 mls/hr 06/15/20 08:14 Nacl 0.9% IV LINO PRN Hypotension Insulin Glargine 20 units 06/12/20 22:00 06/15/20 01:14 Lantus SUB-Q 20 units QHS CHERI Administration Insulin Human Lispro 0 unit 06/11/20 12:00 06/15/20 06:34 Humalog SUB-Q 6 unit Q6HR CHERI Administration Protocol Insulin Human Lispro 10 unit 06/12/20 16:30 06/15/20 08:18 Humalog SUB-Q 10 unit AC CHERI Administration Methylprednisolone Sodium Succinate 40 mg 06/11/20 14:00 06/15/20 06:34 Solu-Medrol IV 40 mg Q8HR CHERI Administration Metoprolol Tartrate 5 mg 06/09/20 14:52 06/11/20 05:13 Metoprolol IV 5 mg Q6HR PRN Administration Tachyarrhythmias Multi-Ingred Cream/Lotion/Oil/Oint 1 applic 06/12/20 12:11 Artificial Tears Ophth Oint OU Q4HR PRN Dry Eye(s) Naloxone HCl 0.1 mg 05/31/20 15:49 Naloxone IV Q2MIN PRN Res Rate </= 8 or 02 SAT < 92% Ondansetron HCl 4 mg 05/31/20 15:57 Zofran IV Q8H PRN N/V unrelieved by Anna Pantoprazole Sodium 40 mg 06/15/20 10:00 06/15/20 09:10 Protonix IV 40 mg BID CHERI Administration Sodium Chloride 10 ml 05/31/20 22:00 06/15/20 09:13 Sodium Chloride Flush Syringe 10 Ml IV 10 ml BID CHERI Administration Sodium Chloride 10 ml 05/31/20 15:49 Sodium Chloride Flush Syringe 10 Ml IV PRN PRN LINE FLUSH
[2020-06-15] MEDS ORDERED: FAMOTIDINE 20 MG TAB PO SCH (10:00)
[2020-06-15] MEDS ORDERED: LIPASE 10,500/PROTEASE 25,000/AMYLASE 43,750 (UNITS) DR CAP FEEDTUBE PRN (10:41)
[2020-06-15] MEDS ORDERED: SIMPLE SYRUP 15 ML FEEDTUBE PRN ×2 (10:41)
[2020-06-15] MEDS ORDERED: SODIUM BICARBONATE 325 MG TAB FEEDTUBE PRN (10:41)
--- NOTE | 2020-06-15 10:55 | Progress Note ---
Assessment and Plan unchanged cv status cont iv amio (low dose) wean pressors supportive care poor prognosis - Patient Problems (1) Acute kidney injury superimposed on CKD Current Visit: Yes Status: Acute (2) Elevated d-dimer Current Visit: Yes Status: Acute (3) Paroxysmal atrial fibrillation with RVR Current Visit: Yes Status: Acute (4) Pneumonia due to COVID-19 virus Current Visit: Yes Status: Acute (5) Suspected COVID-19 virus infection Current Visit: Yes Status: Acute (6) Diabetes Current Visit: Yes Status: Chronic Qualifiers: Diabetes mellitus type: type 2 Diabetes mellitus group home insulin use: with group home use Diabetes mellitus complication status: with hyperglycemia Qualified Code(s): E11.65 - Type 2 diabetes mellitus with hyperglycemia; Z79.4 - terminal press operator (current) use of insulin (7) HTN (hypertension) Current Visit: Yes Status: Chronic Qualifiers: Hypertension type: essential hypertension Qualified Code(s): I10 - Essential (primary) hypertension (8) Acute renal failure Current Visit: No Status: Acute (9) Cervical spondylosis with myelopathy and radiculopathy Current Visit: No Status: Acute (10) DVT prophylaxis Current Visit: No Status: Acute (11) HLD (hyperlipidemia) Current Visit: No Status: Acute Subjective Date of service: 06/15/20 Principal diagnosis: COVID-19 PNA, AF RVR Interval history: no changes overnight Objective Vital Signs Temp Pulse Pulse Resp BP Pulse Ox 06/15/20 10:15 100 H 25 H 106/64 93 06/15/20 10:00 99 H 24 109/61 93 06/15/20 09:45 100 H 31 H 97/58 92 06/15/20 09:30 100 H 21 97/62 91 06/15/20 09:15 100 H 29 H 107/63 93 06/15/20 09:00 101 H 30 H 98/61 90 06/15/20 08:45 102 H 28 H 106/65 96 06/15/20 08:35 102 H 102/61 95 06/15/20 08:30 100 H 22 102/61 94 06/15/20 08:15 100 H 28 H 109/68 96 06/15/20 08:00 99.0 F 100 H 102 H 26 H 104/64 97 06/15/20 07:45 101 H 29 H 108/60 95 06/15/20 07:30 101 H 20 110/68 95 06/15/20 07:15 100 H 35 H 120/69 96 06/15/20 07:00 98 H 23 112/67 95 06/15/20 06:45 100 H 34 H 115/68 98 06/15/20 06:30 98 H 21 110/67 96 06/15/20 06:15 99 H 25 H 105/69 95 06/15/20 06:00 100 H 29 H 103/66 96 06/15/20 05:45 99 H 36 H 116/67 94 06/15/20 05:30 102 H 32 H 105/68 95 06/15/20 05:24 98.8 F 06/15/20 05:15 100 H 32 H 106/65 93 06/15/20 05:00 97 H 29 H 109/64 94 06/15/20 04:45 99 H 31 H 115/70 95 06/15/20 04:30 100 H 32 H 107/69 98 06/15/20 04:26 99 H 110/70 99 06/15/20 04:15 101 H 32 H 110/70 99 06/15/20 04:03 102 H 102 H 32 H 96 06/15/20 04:00 101 H 32 H 106/70 99 06/15/20 03:45 100 H 34 H 107/71 98 06/15/20 03:30 100 H 32 H 106/72 99 06/15/20 03:17 99.8 F H 06/15/20 03:15 100 H 33 H 108/70 98 06/15/20 03:00 100 H 33 H 106/69 99 06/15/20 02:45 97 H 34 H 112/68 100 06/15/20 02:30 97 H 34 H 108/76 98 06/15/20 02:15 100 H 34 H 117/78 100 06/15/20 02:00 96 H 25 H 131/83 100 06/15/20 01:45 98 H 31 H 129/89 99 06/15/20 01:30 96 H 34 H 95/71 99 06/15/20 01:15 101 H 32 H 97/63 99 06/15/20 01:00 102 H 100 H 33 H 98/61 97 06/15/20 00:45 98 H 34 H 109/68 99 06/15/20 00:30 98 H 34 H 107/69 99 06/15/20 00:17 100 H 99/75 99 06/15/20 00:15 101 H 29 H 99/75 99 06/15/20 00:00 100 H 33 H 104/68 100 06/14/20 23:51 99.2 F 06/14/20 23:45 101 H 33 H 111/66 99 06/14/20 23:30 100 H 33 H 108/66 99 06/14/20 23:15 102 H 33 H 100/68 98 06/14/20 23:04 101 H 31 H 101/64 99 06/14/20 23:00 101 H 33 H 101/64 06/14/20 22:45 101 H 34 H 103/63 99 06/14/20 22:36 98 H 34 H 103/65 99 06/14/20 22:30 102 H 34 H 102/66 99 06/14/20 22:15 101 H 34 H 104/69 99 06/14/20 22:00 100 H 33 H 109/66 99 06/14/20 21:45 101 H 32 H 114/71 99 06/14/20 21:30 102 H 33 H 103/65 99 06/14/20 21:15 100 H 33 H 102/68 99 06/14/20 21:00 101 H 102 H 34 H 101/65 98 06/14/20 20:45 99 H 33 H 116/65 99 06/14/20 20:30 102 H 34 H 102/67 98 06/14/20 20:24 100 H 105/66 99 06/14/20 20:15 101 H 35 H 108/69 99 06/14/20 20:00 102 H 33 H 110/65 100 06/14/20 19:52 99.9 F H 06/14/20 19:45 97 H 34 H 104/67 99 06/14/20 19:30 99 H 34 H 104/65 99 06/14/20 19:15 99 H 34 H 113/66 99 06/14/20 19:00 98 H 33 H 108/60 99 06/14/20 18:45 99 H 33 H 109/62 98 06/14/20 18:30 100 H 33 H 94/67 100 06/14/20 18:15 99 H 33 H 104/64 100 06/14/20 18:00 98 H 30 H 106/65 99 06/14/20 17:45 100 H 33 H 96/72 97 06/14/20 17:30 96 H 33 H 88/70 06/14/20 17:15 97 H 36 H 109/65 98 06/14/20 17:00 101 H 36 H 121/64 97 06/14/20 16:45 96 H 37 H 104/69 98 06/14/20 16:30 94 H 36 H 111/71 97 06/14/20 16:15 91 H 36 H 108/69 97 06/14/20 16:00 100 F H 95 H 95 H 30 H 114/70 97 06/14/20 15:45 96 H 36 H 111/71 98 06/14/20 15:32 100 H 113/73 98 06/14/20 15:30 94 H 36 H 110/70 96 06/14/20 15:15 95 H 37 H 109/73 97 06/14/20 15:00 95 H 33 H 113/73 98 06/14/20 14:45 95 H 37 H 114/80 98 06/14/20 14:30 94 H 36 H 117/74 96 06/14/20 14:15 96 H 31 H 127/76 98 06/14/20 14:00 95 H 38 H 118/75 97 06/14/20 13:46 97 H 36 H 101/74 06/14/20 13:30 97 H 36 H 116/73 99 06/14/20 13:15 99.7 F H 102 H 37 H 119/83 96 06/14/20 13:00 101 H 29 H 107/80 98 06/14/20 12:45 103 H 32 H 99/63 96 06/14/20 12:37 100 H 94/64 95 06/14/20 12:30 99 H 37 H 97/55 91 06/14/20 12:15 99 H 37 H 81/54 94 06/14/20 12:00 98.7 F 94 H 100 H 37 H 100/63 97 06/14/20 11:45 99 H 37 H 109/70 94 06/14/20 11:30 98 H 36 H 99/64 93 06/14/20 11:15 103 H 37 H 88/62 85 09/11/20 11:00 102 H 35 H 90/66 90 - Physical Examination General: Other (inubated, sedated) Neck: Positive: neck supple Neuro: Positive: Other (intubated, sedated) Abdomen: Negative: Tender Skin: Negative: Rash Musculoskeletal: No Pain Extremities: Absent: edema - Labs and Meds Lipids 06/15/20 Range/Units 03:21 Triglycerides 268 H (2-149) mg/dL CBC 06/15/20 Range/Units 03:21 WBC 33.0 H (4.5-11.0) K/mm3 RBC 3.18 L (3.65-5.03) M/mm3 Hgb 9.3 L (11.8-15.2) gm/dl Hct 28.0 L D (35.5-45.6) % Plt Count 146 (140-440) K/mm3 Comprehensive Metabolic Panel 06/15/20 Range/Units 03:21 Sodium 138 (137-145) mmol/L Potassium 4.7 (3.6-5.0) mmol/L Chloride 94.4 L (98-107) mmol/L Carbon Dioxide 23 (22-30) mmol/L BUN 96 H (9-20) mg/dL Creatinine 6.4 H (0.8-1.3) mg/dL Glucose 234 H (75-100) mg/dL Calcium 7.7 L (8.4-10.2) mg/dL - Imaging and Cardiology EKG: report reviewed, image reviewed Echo: pending
[2020-06-15] MEDS: fentaNYL 100 MCG/2 ML INJ IV PRN ×2 (11:01→13:26)
--- NOTE | 2020-06-15 13:10 | Progress Note ---
Assessment and Plan Cultures: Coronavirus PCR: positive Blood culture: no growth Sputum culture: No growth A/P: 54-year-old male with diabetes, CKD, prior CVA, obesity was admitted to the hospital with complaints of cough, shortness of breath along with fatigue and malaise: #Severe COVID pneumonia: hypoxic, elevated inflammatory markers on admission. Not candidate for Remdesivir due to renal function #Acute hypoxic respiratory failure: intubated, on the vent. #KEITH on CKD: on HD per nephrology. #S/P Cardiac arrest 06/13/2020 Recs: Continue high dose steroids per pulm. trend ferritin, LDH, d-dimer, CRP every 2-3 days for risk stratification and to assess disease progression prophylactic anticoagulation based on d-dimer Renally dosing cefepime. D4 of 5 Poor prognosis Nasim Gaitan MD, FACP [facility] C: [phone] O: [phone] F: [phone] Subjective Date of service: 06/15/20 Principal diagnosis: COVID-19 PNA, AF RVR Interval history: Low grade fever yesterday. No fever today. On pressors. WBC up to 33K. Remains intubated, on the vent. Objective - Exam Narrative Exam: Physical Exam (reviewed in chart due to PPE conservation and minimize risk of transmission) Constitutional: intubated, sedated, on the vent Head, Ears, Nose: normocephalic, atraumatic Eyes: limited due to PPE conservation strategy Neck: intubated Oral: intubated Cardiovascular: limited due to PPE conservation strategy Respiratory: limited due to PPE conservation strategy GI: limited due to PPE conservation strategy Musculoskeletal: limited due to PPE conservation strategy Skin: limited due to PPE conservation strategy Hem/Lymphatic: limited due to PPE conservation strategy Psych: no agitation Neurological: sedated, intubated, on the vent, exam limited - Constitutional Vitals: Vital Signs Temp Pulse Resp BP Pulse Ox 99.3 F 105 H 25 H 97/59 96 06/15/20 12:00 06/15/20 12:39 06/15/20 10:15 06/15/20 12:39 06/15/20 12:39 Temperature -Last 24 Hours Temperature 99.3 F Temperature 99.0 F Temperature 98.8 F Temperature 99.8 F Temperature 99.2 F Temperature 99.9 F Temperature 100 F Temperature 99.7 F - Labs CBC & Chem 7: 06/15/20 03:21 06/15/20 03:21 Labs: Abnormal lab results 06/14/20 06/15/20 06/15/20 Range/Units 17:25 00:29 03:21 WBC (4.5-11.0) K/mm3 RBC (3.65-5.03) M/mm3 Hgb (11.8-15.2) gm/dl Hct (35.5-45.6) % RDW (13.2-15.2) % Seg Neuts % (Manual) (40.0-70.0) % Lymphocytes % (Manual) (13.4-35.0) % Seg Neutrophils # Man (1.8-7.7) K/mm3 Lymphocytes # (Manual) (1.2-5.4) K/mm3 Monocytes # (Manual) (0.0-0.8) K/mm3 ABG pH (7.320-7.450) POC ABG pCO2 (32.0-48.0) mmHg POC ABG pO2 (83-108) mmHg ABG Hemoglobin (12.0-17.5) Chloride 94.4 L (98-107) mmol/L BUN 96 H (9-20) mg/dL Creatinine 6.4 H (0.8-1.3) mg/dL Glucose 234 H (75-100) mg/dL POC Glucose 208 H 199 H (70-105) Calcium 7.7 L (8.4-10.2) mg/dL Triglycerides 268 H (2-149) mg/dL 06/15/20 06/15/20 06/15/20 Range/Units 03:21 05:23 10:00 WBC 33.0 H (4.5-11.0) K/mm3 RBC 3.18 L (3.65-5.03) M/mm3 Hgb 9.3 L (11.8-15.2) gm/dl Hct 28.0 L D (35.5-45.6) % RDW 15.4 H (13.2-15.2) % Seg Neuts % (Manual) 94.0 H (40.0-70.0) % Lymphocytes % (Manual) 2.0 L (13.4-35.0) % Seg Neutrophils # Man 31.0 H (1.8-7.7) K/mm3 Lymphocytes # (Manual) 0.7 L (1.2-5.4) K/mm3 Monocytes # (Manual) 1.3 H (0.0-0.8) K/mm3 ABG pH 7.214 L (7.320-7.450) POC ABG pCO2 69.9 H (32.0-48.0) mmHg POC ABG pO2 72.0 L (83-108) mmHg ABG Hemoglobin 9.7 L (12.0-17.5) Chloride (98-107) mmol/L BUN (9-20) mg/dL Creatinine (0.8-1.3) mg/dL Glucose (75-100) mg/dL POC Glucose 272 H (70-105) Calcium (8.4-10.2) mg/dL Triglycerides (2-149) mg/dL
[2020-06-15] MEDS: ACETAMINOPHEN 325 MG TAB PO PRN (16:34)
[2020-06-15 17:44] LABS: Hematocrit 25.8 % (35.5-45.6); Hemoglobin 8.4 gm/dl (11.8-15.2)
[2020-06-15] MEDS ORDERED: SODIUM BICARB 8.4% 50 MEQ/50 ML SYRINGE IV ONE (18:00)
[2020-06-15] MEDS: VASOPRESSIN 20 UNIT in SODIUM CHLORIDE 0.9% 99 ML IV SCH (18:12)
[2020-06-15] MEDS: NORepinephrine 8 MG in SODIUM CHLORIDE 0.9% 250ML 242 ML IV SCH (19:13)
[2020-06-15] MEDS: AMIODARONE 900 MG in DEXTROSE 5% IN WATER 482 ML IV SCH (20:56)
[2020-06-16] MEDS: NORepinephrine 8 MG in SODIUM CHLORIDE 0.9% 250ML 242 ML IV SCH ×5 (00:29→19:50)
[2020-06-16] MEDS: INSULIN LISPRO 100 UNIT/ML VIAL 3 mL SUB-Q SCH ×7 (00:31→17:43)
[2020-06-16] MEDS: VASOPRESSIN 20 UNIT in SODIUM CHLORIDE 0.9% 99 ML IV SCH ×2 (00:33→18:51)
[2020-06-16 05:15] LABS: ABG Base Excess 0.1 mmol/L (-2.0-3.0); ABG HCO3 28.4 mmol/L (20.0-26.0); ABG Methemoglobin 0.7 % (0.0-1.5); ABG Oxygen Saturation 93.9 % (95.0-99.0); ABG PCO2 74.1 mm Hg; ABG PH 7.201 pH Units (7.350-7.450); ABG PO2 81.2 mm Hg (80.0-90.0)
[2020-06-16] MEDS: SODIUM CHLORIDE 0.9% 500 ML 500 ML IV SCH ×2 (05:15→07:52)
[2020-06-16] MEDS: methylPREDNISolone Sod Succinate 40 MG/1 ML INJ IV SCH ×3 (05:28→21:21)
[2020-06-16] MEDS ORDERED: SODIUM CHLORIDE 0.9% 500 ML 500 ML IV SCH (08:00)
[2020-06-16] MEDS: PANTOPRAZOLE 40 MG INJ IV SCH ×2 (09:26→21:21)
[2020-06-16] MEDS: ENOXAPARIN 100 MG/1 ML INJ SUB-Q SCH (09:26)
[2020-06-16] MEDS: CEFEPIME/NS 1 GM/100 ML 1 GM/100 ML BAG IV SCH (09:29)
--- NOTE | 2020-06-16 10:54 | Progress Note ---
Assessment and Plan 54 y/o male with acute respiratory failure, secondary to COVID 19 pneumonia and possibly acute renal failure, now intubated with worsening renal failure 1. Overall prognosis is very guarded given amount of downtime, prior hypoxemia, and current neurologic exam. Patient could very well be anoxic. Once more stable will send for Head CT. My attempt to send down today. 2. Continue IV steroids. 3. Stop Lovenox therapy for now. Having [employer] coming from NG tube. Hold feeds. Will need serial h/h's. IV PPI 4. HD per renal. Dialysis will help with uremia and which could improve platelet function. 5. Continue Amio 6. did increase RR on vent this am, but metabolic acidosis is predominant. 7. May consider backing down on steroids but will reassess tomorrow. cct 31 minutes Subjective Date of service: 06/16/20 Principal diagnosis: COVID-19 PNA, AF RVR Interval history: HgB significantly lower than prior checks. Became more hypotensive. 2 units of PRBC's were transfused. Pressor requirement has come down. Patient still with very poor prognosis. Objective Vital Signs - 12hr 06/15/20 06/15/20 06/15/20 23:00 23:16 23:30 Temperature Pulse Rate 95 H 93 H 92 H Pulse Rate [ From Monitor] Respiratory 20 23 21 Rate Blood Pressure 123/70 129/70 139/67 O2 Sat by Pulse 95 95 96 Oximetry 06/15/20 06/16/20 06/16/20 23:45 00:00 00:01 Temperature 98.5 F Pulse Rate 93 H 95 H 96 H Pulse Rate [ 90 From Monitor] Respiratory 20 23 21 Rate Blood Pressure 130/71 130/71 113/48 O2 Sat by Pulse 95 94 93 Oximetry 06/16/20 06/16/20 06/16/20 00:13 00:16 00:30 Temperature Pulse Rate 87 86 87 Pulse Rate [ From Monitor] Respiratory 19 20 Rate Blood Pressure 113/48 113/48 111/68 O2 Sat by Pulse 100 94 95 Oximetry 06/16/20 06/16/20 06/16/20 00:45 01:01 01:15 Temperature Pulse Rate 94 H 92 H 96 H Pulse Rate [ From Monitor] Respiratory 21 21 20 Rate Blood Pressure 133/68 138/72 141/77 O2 Sat by Pulse 97 96 96 Oximetry 06/16/20 06/16/20 06/16/20 01:30 01:45 02:00 Temperature Pulse Rate 95 H 97 H 93 H Pulse Rate [ From Monitor] Respiratory 21 19 18 Rate Blood Pressure 123/75 117/78 114/81 O2 Sat by Pulse 96 96 95 Oximetry 06/16/20 06/16/20 06/16/20 02:15 02:30 02:45 Temperature Pulse Rate 94 H 95 H 92 H Pulse Rate [ From Monitor] Respiratory 25 H 20 26 H Rate Blood Pressure 130/85 133/79 135/75 O2 Sat by Pulse 96 97 96 Oximetry 06/16/20 06/16/20 06/16/20 03:00 03:15 03:30 Temperature Pulse Rate 92 H 94 H 92 H Pulse Rate [ From Monitor] Respiratory 19 24 19 Rate Blood Pressure 138/66 126/73 118/76 O2 Sat by Pulse 96 96 96 Oximetry 06/16/20 06/16/20 06/16/20 03:45 04:00 04:01 Temperature 98.6 F Pulse Rate 96 H 82 91 H Pulse Rate [ 90 From Monitor] Respiratory 17 26 H 14 Rate Blood Pressure 128/83 120/64 O2 Sat by Pulse 95 97 96 Oximetry 06/16/20 06/16/20 06/16/20 04:15 04:17 04:30 Temperature Pulse Rate 89 89 93 H Pulse Rate [ From Monitor] Respiratory 20 15 Rate Blood Pressure 129/72 129/72 127/75 O2 Sat by Pulse 96 96 96 Oximetry 06/16/20 06/16/20 06/16/20 04:45 05:00 05:15 Temperature Pulse Rate 94 H 89 88 Pulse Rate [ From Monitor] Respiratory 15 19 18 Rate Blood Pressure 118/82 111/81 112/73 O2 Sat by Pulse 96 96 95 Oximetry 06/16/20 06/16/20 06/16/20 05:30 05:35 05:45 Temperature 98 F Pulse Rate 88 90 89 Pulse Rate [ From Monitor] Respiratory 26 H 25 H 29 H Rate Blood Pressure 103/76 123/72 103/76 O2 Sat by Pulse 95 97 96 Oximetry 06/16/20 06/16/20 06/16/20 05:51 06:01 06:06 Temperature 98.1 F Pulse Rate 88 91 H Pulse Rate [ From Monitor] Respiratory 19 25 H Rate Blood Pressure 123/72 131/74 O2 Sat by Pulse 96 97 Oximetry 06/16/20 06/16/20 06/16/20 06:11 06:21 06:30 Temperature Pulse Rate 96 H 89 97 H Pulse Rate [ From Monitor] Respiratory 23 25 H 25 H Rate Blood Pressure 131/74 142/79 137/74 O2 Sat by Pulse 99 97 100 Oximetry 06/16/20 06/16/20 06/16/20 06:41 06:51 06:56 Temperature 98.4 F Pulse Rate 89 88 Pulse Rate [ From Monitor] Respiratory 20 24 Rate Blood Pressure 137/74 139/74 O2 Sat by Pulse 97 96 Oximetry 06/16/20 06/16/20 06/16/20 06:57 07:00 07:15 Temperature 99.2 F Pulse Rate 88 87 85 Pulse Rate [ From Monitor] Respiratory 17 29 H 21 Rate Blood Pressure 131/68 158/77 149/76 O2 Sat by Pulse 97 100 96 Oximetry 06/16/20 06/16/20 06/16/20 07:30 07:45 08:00 Temperature 99.2 F Pulse Rate 89 90 94 H Pulse Rate [ 89 From Monitor] Respiratory 18 21 26 H Rate Blood Pressure 142/69 135/69 131/68 O2 Sat by Pulse 100 96 97 Oximetry 06/16/20 06/16/20 06/16/20 08:08 08:18 08:21 Temperature 99.2 F Pulse Rate 89 89 92 H Pulse Rate [ From Monitor] Respiratory 26 H 21 Rate Blood Pressure 131/68 125/66 125/66 O2 Sat by Pulse 97 95 93 Oximetry 06/16/20 06/16/20 06/16/20 08:23 08:31 08:41 Temperature 99.2 F Pulse Rate 95 H 89 85 Pulse Rate [ From Monitor] Respiratory 21 18 25 H Rate Blood Pressure 117/58 113/55 113/55 O2 Sat by Pulse 95 94 93 Oximetry 06/16/20 06/16/20 06/16/20 08:51 08:53 09:00 Temperature 99.8 F H Pulse Rate 85 86 84 Pulse Rate [ From Monitor] Respiratory 22 18 22 Rate Blood Pressure 125/64 123/66 116/62 O2 Sat by Pulse 95 95 94 Oximetry 06/16/20 06/16/20 06/16/20 09:11 09:21 09:31 Temperature Pulse Rate 92 H 87 87 Pulse Rate [ From Monitor] Respiratory 21 20 21 Rate Blood Pressure 116/62 127/57 123/66 O2 Sat by Pulse 94 100 100 Oximetry 06/16/20 06/16/20 06/16/20 09:35 09:45 09:53 Temperature 99.2 F 99.4 F Pulse Rate 88 87 84 Pulse Rate [ From Monitor] Respiratory 19 24 16 Rate Blood Pressure 123/66 128/59 128/59 O2 Sat by Pulse 94 100 99 Oximetry 06/16/20 06/16/20 06/16/20 10:00 10:15 10:17 Temperature 99.4 F Pulse Rate 90 91 H 90 Pulse Rate [ From Monitor] Respiratory 29 H 21 21 Rate Blood Pressure 127/66 121/65 121/65 O2 Sat by Pulse 100 100 94 Oximetry Constitutional: no acute distress, lethargic, other (Morbidly obese) Eyes: non-icteric ENT: oropharynx moist, other (Crowded oropharynx) Neck: supple Ascultation: Bilateral: diminished breath sounds Cardiovascular: regular rate and rhythm Gastrointestinal: normoactive bowel sounds, non-distended, other (Obese) Integumentary: normal Extremities: no cyanosis Neurologic: non-focal exam CBC and BMP: 06/15/20 12:30 06/15/20 03:21 ABG, PT/INR, D-dimer: ABG ABG pH 7.201 pH Units (7.350-7.450) L 06/16/20 03:49 POC ABG pCO2 69.9 mmHg (32.0-48.0) H 06/15/20 10:00 ABG pCO2 74.1 mm Hg 06/16/20 03:49 POC ABG pO2 72.0 mmHg (83-108) L 06/15/20 10:00 ABG pO2 81.2 mm Hg (80.0-90.0) 06/16/20 03:49 POC ABG HCO3 27.6 06/15/20 10:00 ABG O2 Saturation 93.9 % (95.0-99.0) L 06/16/20 03:49 PT/INR, D-dimer PT 11.5 Sec. (12.2-14.9) L 05/31/20 15:23 INR 0.83 (0.87-1.13) L 05/31/20 15:23 D-Dimer > 89620 ng/mlDDU (0-234) H 06/09/20 09:21 Abnormal lab findings: Abnormal Labs 05/31/20 05/31/20 05/31/20 15:23 15:23 15:23 WBC RBC Hgb Hct MCHC RDW Lymph % (Auto) Lymph # Me[place] # Seg Neutrophils % Seg Neuts % (Manual) Lymphocytes % (Manual) Seg Neutrophils # Seg Neutrophils # Man Lymphocytes # (Manual) Monocytes # (Manual) PT INR D-Dimer ABG pH POC ABG pCO2 POC ABG pO2 ABG pO2 ABG HCO3 ABG O2 Saturation ABG Base Excess ABG Hemoglobin ABG Oxyhemoglobin Oxyhemoglobin Carboxyhemoglobin Sodium Potassium Chloride Carbon Dioxide BUN Creatinine Glucose 280 H POC Glucose Hemoglobin A1c Calcium Ferritin 583.4 H Alkaline Phosphatase Lactate Dehydrogenase 392 H Total Creatine Kinase 325 H C-Reactive Protein 14.30 H Albumin Fmkna-9-Eyldnshec Qqmld-3-Pwhqdnsgl Beta Globulins PEP Interpretation Triglycerides Urine Creatinine Complement C3 Complement C4 Coronavirus (PCR) Crossmatch 05/31/20 05/31/20 05/31/20 15:23 15:23 15:23 WBC RBC Hgb Hct MCHC RDW 15.7 H Lymph % (Auto) 12.9 L Lymph # 1.0 L Meagher # Seg Neutrophils % 81.7 H Seg Neuts % (Manual) Lymphocytes % (Manual) Seg Neutrophils # Seg Neutrophils # Man Lymphocytes # (Manual) Monocytes # (Manual) PT 11.5 L INR 0.83 L D-Dimer ABG pH POC ABG pCO2 POC ABG pO2 ABG pO2 ABG HCO3 ABG O2 Saturation ABG Base Excess ABG Hemoglobin ABG Oxyhemoglobin Oxyhemoglobin Carboxyhemoglobin Sodium 134 L Potassium Chloride 97.2 L Carbon Dioxide BUN 28 H Creatinine 3.0 H Glucose 279 H POC Glucose Hemoglobin A1c Calcium Ferritin Alkaline Phosphatase Lactate Dehydrogenase Total Creatine Kinase C-Reactive Protein Albumin 3.3 L Kbjhf-3-Pzdbasrcb Zgeub-3-Ucughjehx Beta Globulins PEP Interpretation Triglycerides Urine Creatinine Complement C3 Complement C4 Coronavirus (PCR) Crossmatch 05/31/20 05/31/20 05/31/20 16:47 16:49 16:49 WBC RBC Hgb Hct MCHC RDW Lymph % (Auto) Lymph # [place] # Seg Neutrophils % Seg Neuts % (Manual) Lymphocytes % (Manual) Seg Neutrophils # Seg Neutrophils # Man Lymphocytes # (Manual) Monocytes # (Manual) PT INR D-Dimer 738.85 H ABG pH POC ABG pCO2 POC ABG pO2 ABG pO2 ABG HCO3 ABG O2 Saturation ABG Base Excess ABG Hemoglobin ABG Oxyhemoglobin Oxyhemoglobin Carboxyhemoglobin Sodium Potassium Chloride Carbon Dioxide BUN Creatinine Glucose 258 H POC Glucose 239 H Hemoglobin A1c Calcium Ferritin Alkaline Phosphatase Lactate Dehydrogenase 409 H Total Creatine Kinase C-Reactive Protein 14.00 H Albumin Jeync-6-Nnkhozvjr Epcwa-9-Nesiobqen Beta Globulins PEP Interpretation Triglycerides Urine Creatinine Complement C3 Complement C4 Coronavirus (PCR) Crossmatch 05/31/20 05/31/20 06/01/20 16:49 16:49 10:15 WBC RBC Hgb Hct MCHC RDW Lymph % (Auto) Lymph # [place] # Seg Neutrophils % Seg Neuts % (Manual) Lymphocytes % (Manual) Seg Neutrophils # Seg Neutrophils # Man Lymphocytes # (Manual) Monocytes # (Manual) PT INR D-Dimer ABG pH POC ABG pCO2 POC ABG pO2 ABG pO2 ABG HCO3 ABG O2 Saturation ABG Base Excess ABG Hemoglobin ABG Oxyhemoglobin Oxyhemoglobin Carboxyhemoglobin Sodium Potassium Chloride Carbon Dioxide BUN Creatinine Glucose POC Glucose 277 H Hemoglobin A1c 8.5 H Calcium Ferritin 599.0 H Alkaline Phosphatase Lactate Dehydrogenase Total Creatine Kinase C-Reactive Protein Albumin Fxfmg-7-Xydzfqlbx Nomqc-5-Qdswgwnls Beta Globulins PEP Interpretation Triglycerides Urine Creatinine Complement C3 Complement C4 Coronavirus (PCR) Crossmatch 06/01/20 06/01/20 06/01/20 13:41 13:41 16:10 WBC RBC Hgb Hct MCHC RDW 15.3 H Lymph % (Auto) 8.4 L Lymph # 0.9 L Meagher # Seg Neutrophils % 86.9 H Seg Neuts % (Manual) Lymphocytes % (Manual) Seg Neutrophils # 9.3 H Seg Neutrophils # Man Lymphocytes # (Manual) Monocytes # (Manual) PT INR D-Dimer ABG pH POC ABG pCO2 POC ABG pO2 ABG pO2 ABG HCO3 ABG O2 Saturation ABG Base Excess ABG Hemoglobin ABG Oxyhemoglobin Oxyhemoglobin Carboxyhemoglobin Sodium 136 L Potassium 5.5 H Chloride Carbon Dioxide 20 L BUN 42 H Creatinine 3.5 H Glucose 278 H POC Glucose 372 H Hemoglobin A1c Calcium Ferritin Alkaline Phosphatase Lactate Dehydrogenase Total Creatine Kinase C-Reactive Protein Albumin Jtmjg-8-Jxvhambre Dctrr-7-Zwjqhoxnk Beta Globulins PEP Interpretation Triglycerides Urine Creatinine Complement C3 Complement C4 Coronavirus (PCR) Crossmatch 06/01/20 06/01/20 06/01/20 23:12 Unknown Unknown WBC RBC Hgb Hct MCHC RDW Lymph % (Auto) Lymph # [place] # Seg Neutrophils % Seg Neuts % (Manual) Lymphocytes % (Manual) Seg Neutrophils # Seg Neutrophils # Man Lymphocytes # (Manual) Monocytes # (Manual) PT INR D-Dimer ABG pH POC ABG pCO2 POC ABG pO2 ABG pO2 ABG HCO3 ABG O2 Saturation ABG Base Excess ABG Hemoglobin ABG Oxyhemoglobin Oxyhemoglobin Carboxyhemoglobin Sodium Potassium Chloride Carbon Dioxide BUN Creatinine Glucose POC Glucose 398 H Hemoglobin A1c Calcium Ferritin Alkaline Phosphatase Lactate Dehydrogenase Total Creatine Kinase C-Reactive Protein Albumin Vksoq-8-Befmdogse Ovqwj-8-Myphpwojk Beta Globulins PEP Interpretation Triglycerides Urine Creatinine 161.6 H Complement C3 Complement C4 Coronavirus (PCR) Positive A Crossmatch 06/02/20 06/02/20 06/02/20 04:55 04:55 05:33 WBC 14.7 H RBC Hgb Hct MCHC RDW 15.4 H Lymph % (Auto) 7.1 L Lymph # 1.1 L Meagher # Seg Neutrophils % 89.3 H Seg Neuts % (Manual) Lymphocytes % (Manual) Seg Neutrophils # 13.2 H Seg Neutrophils # Man Lymphocytes # (Manual) Monocytes # (Manual) PT INR D-Dimer ABG pH POC ABG pCO2 POC ABG pO2 ABG pO2 ABG HCO3 ABG O2 Saturation ABG Base Excess ABG Hemoglobin ABG Oxyhemoglobin Oxyhemoglobin Carboxyhemoglobin Sodium 136 L Potassium Chloride 97.2 L Carbon Dioxide 21 L BUN 47 H Creatinine 3.5 H Glucose 244 H POC Glucose 262 H Hemoglobin A1c Calcium Ferritin Alkaline Phosphatase Lactate Dehydrogenase Total Creatine Kinase C-Reactive Protein Albumin 3.2 L Qqtwf-6-Lbmeagvfj Ycyrn-3-Iwsmoptcd Beta Globulins PEP Interpretation Triglycerides Urine Creatinine Complement C3 Complement C4 Coronavirus (PCR) Crossmatch 06/02/20 06/02/20 06/02/20 10:55 16:49 22:15 WBC RBC Hgb Hct MCHC RDW Lymph % (Auto) Lymph # [place] # Seg Neutrophils % Seg Neuts % (Manual) Lymphocytes % (Manual) Seg Neutrophils # Seg Neutrophils # Man Lymphocytes # (Manual) Monocytes # (Manual) PT INR D-Dimer ABG pH POC ABG pCO2 POC ABG pO2 ABG pO2 ABG HCO3 ABG O2 Saturation ABG Base Excess ABG Hemoglobin ABG Oxyhemoglobin Oxyhemoglobin Carboxyhemoglobin Sodium Potassium Chloride Carbon Dioxide BUN Creatinine Glucose POC Glucose 160 H 214 H 292 H Hemoglobin A1c Calcium Ferritin Alkaline Phosphatase Lactate Dehydrogenase Total Creatine Kinase C-Reactive Protein Albumin Vbmve-8-Gfaiokswx Vddor-4-Hflnytkhb Beta Globulins PEP Interpretation Triglycerides Urine Creatinine Complement C3 Complement C4 Coronavirus (PCR) Crossmatch 06/02/20 06/03/20 06/03/20 23:47 05:18 05:18 WBC 18.4 H RBC Hgb Hct MCHC RDW 15.3 H Lymph % (Auto) Lymph # Me[place] # Seg Neutrophils % Seg Neuts % (Manual) 91.0 H Lymphocytes % (Manual) 8.0 L Seg Neutrophils # Seg Neutrophils # Man 16.7 H Lymphocytes # (Manual) Monocytes # (Manual) PT INR D-Dimer ABG pH POC ABG pCO2 POC ABG pO2 ABG pO2 ABG HCO3 ABG O2 Saturation ABG Base Excess ABG Hemoglobin ABG Oxyhemoglobin Oxyhemoglobin Carboxyhemoglobin Sodium Potassium Chloride Carbon Dioxide 20 L BUN 50 H Creatinine 3.1 H Glucose 248 H POC Glucose 292 H Hemoglobin A1c Calcium Ferritin Alkaline Phosphatase Lactate Dehydrogenase Total Creatine Kinase C-Reactive Protein Albumin 2.8 L Vvmvw-2-Qlgtzfqtc Ufmoq-8-Wnfzmbgyo Beta Globulins PEP Interpretation Triglycerides Urine Creatinine Complement C3 Complement C4 Coronavirus (PCR) Crossmatch 06/03/20 06/03/20 06/03/20 05:20 10:39 10:39 WBC RBC Hgb Hct MCHC RDW Lymph % (Auto) Lymph # [place] # Seg Neutrophils % Seg Neuts % (Manual) Lymphocytes % (Manual) Seg Neutrophils # Seg Neutrophils # Man Lymphocytes # (Manual) Monocytes # (Manual) PT INR D-Dimer ABG pH POC ABG pCO2 POC ABG pO2 ABG pO2 ABG HCO3 ABG O2 Saturation ABG Base Excess ABG Hemoglobin ABG Oxyhemoglobin Oxyhemoglobin Carboxyhemoglobin Sodium Potassium Chloride Carbon Dioxide BUN Creatinine Glucose POC Glucose 208 H Hemoglobin A1c Calcium Ferritin Alkaline Phosphatase Lactate Dehydrogenase Total Creatine Kinase C-Reactive Protein Albumin Sqiwl-4-Scxcdhkdj Mmmcs-9-Zjopqshlo Beta Globulins PEP Interpretation Triglycerides Urine Creatinine Complement C3 223 H Complement C4 64 H Coronavirus (PCR) Crossmatch 06/03/20 06/03/20 06/03/20 11:40 13:06 16:58 WBC RBC Hgb Hct MCHC RDW Lymph % (Auto) Lymph # Me[place] # Seg Neutrophils % Seg Neuts % (Manual) Lymphocytes % (Manual) Seg Neutrophils # Seg Neutrophils # Man Lymphocytes # (Manual) Monocytes # (Manual) PT INR D-Dimer ABG pH POC ABG pCO2 POC ABG pO2 ABG pO2 ABG HCO3 ABG O2 Saturation ABG Base Excess ABG Hemoglobin ABG Oxyhemoglobin Oxyhemoglobin Carboxyhemoglobin Sodium Potassium Chloride Carbon Dioxide BUN Creatinine Glucose POC Glucose 180 H 167 H 152 H Hemoglobin A1c Calcium Ferritin Alkaline Phosphatase Lactate Dehydrogenase Total Creatine Kinase C-Reactive Protein Albumin Vhtce-5-Iofzknynz Lfobz-0-Prjfgmeqo Beta Globulins PEP Interpretation Triglycerides Urine Creatinine Complement C3 Complement C4 Coronavirus (PCR) Crossmatch 06/04/20 06/04/20 06/04/20 00:07 04:17 04:17 WBC 20.8 H RBC 5.20 H Hgb Hct MCHC RDW 15.7 H Lymph % (Auto) Lymph # Meagher # Seg Neutrophils % Seg Neuts % (Manual) 91.0 H Lymphocytes % (Manual) 4.0 L Seg Neutrophils # Seg Neutrophils # Man 18.9 H Lymphocytes # (Manual) 0.8 L Monocytes # (Manual) 1.0 H PT INR D-Dimer ABG pH POC ABG pCO2 POC ABG pO2 ABG pO2 ABG HCO3 ABG O2 Saturation ABG Base Excess ABG Hemoglobin ABG Oxyhemoglobin Oxyhemoglobin Carboxyhemoglobin Sodium 135 L Potassium 5.1 H Chloride 97.8 L Carbon Dioxide 20 L BUN 56 H Creatinine 3.1 H Glucose 178 H POC Glucose 206 H Hemoglobin A1c Calcium Ferritin Alkaline Phosphatase Lactate Dehydrogenase Total Creatine Kinase C-Reactive Protein Albumin 3.0 L Lwbrk-3-Icuigxsjs Pouzf-6-Ktolegzif Beta Globulins PEP Interpretation Triglycerides Urine Creatinine Complement C3 Complement C4 Coronavirus (PCR) Crossmatch 06/04/20 06/04/20 06/04/20 04:17 05:35 11:08 WBC RBC Hgb Hct MCHC RDW Lymph % (Auto) Lymph # Me[place] # Seg Neutrophils % Seg Neuts % (Manual) Lymphocytes % (Manual) Seg Neutrophils # Seg Neutrophils # Man Lymphocytes # (Manual) Monocytes # (Manual) PT INR D-Dimer ABG pH POC ABG pCO2 POC ABG pO2 ABG pO2 ABG HCO3 ABG O2 Saturation ABG Base Excess ABG Hemoglobin ABG Oxyhemoglobin Oxyhemoglobin Carboxyhemoglobin Sodium Potassium Chloride Carbon Dioxide BUN Creatinine Glucose POC Glucose 166 H 159 H Hemoglobin A1c Calcium Ferritin Alkaline Phosphatase Lactate Dehydrogenase Total Creatine Kinase C-Reactive Protein Albumin 2.6 L Vwmio-2-Nrcoawqfz 0.5 H Mfizm-7-Quaagmdlp 1.6 H Beta Globulins 0.6 H PEP Interpretation see below H Triglycerides Urine Creatinine Complement C3 Complement C4 Coronavirus (PCR) Crossmatch 06/04/20 06/05/20 06/05/20 18:06 00:22 04:56 WBC 20.2 H RBC Hgb Hct MCHC RDW 15.6 H Lymph % (Auto) 4.7 L Lymph # 0.9 L Meagher # 1.0 H Seg Neutrophils % Seg Neuts % (Manual) Lymphocytes % (Manual) Seg Neutrophils # 18.2 H Seg Neutrophils # Man Lymphocytes # (Manual) Monocytes # (Manual) PT INR D-Dimer ABG pH POC ABG pCO2 POC ABG pO2 ABG pO2 ABG HCO3 ABG O2 Saturation ABG Base Excess ABG Hemoglobin ABG Oxyhemoglobin Oxyhemoglobin Carboxyhemoglobin Sodium Potassium Chloride Carbon Dioxide BUN Creatinine Glucose POC Glucose 190 H 234 H Hemoglobin A1c Calcium Ferritin Alkaline Phosphatase Lactate Dehydrogenase Total Creatine Kinase C-Reactive Protein Albumin Couts-2-Mbzsczxgn Uzubh-9-Qstmtvptd Beta Globulins PEP Interpretation Triglycerides Urine Creatinine Complement C3 Complement C4 Coronavirus (PCR) Crossmatch 06/05/20 06/05/20 06/05/20 04:56 05:43 09:27 WBC RBC Hgb Hct MCHC RDW Lymph % (Auto) Lymph # Me[place] # Seg Neutrophils % Seg Neuts % (Manual) Lymphocytes % (Manual) Seg Neutrophils # Seg Neutrophils # Man Lymphocytes # (Manual) Monocytes # (Manual) PT INR D-Dimer ABG pH POC ABG pCO2 POC ABG pO2 ABG pO2 ABG HCO3 ABG O2 Saturation ABG Base Excess ABG Hemoglobin ABG Oxyhemoglobin Oxyhemoglobin Carboxyhemoglobin Sodium Potassium Chloride Carbon Dioxide 21 L BUN 63 H Creatinine 3.0 H Glucose 170 H POC Glucose 156 H 106 H Hemoglobin A1c Calcium Ferritin Alkaline Phosphatase Lactate Dehydrogenase Total Creatine Kinase C-Reactive Protein Albumin 3.0 L Jyfwf-2-Vpmnmjupk Fskwf-9-Huzdnkqnk Beta Globulins PEP Interpretation Triglycerides Urine Creatinine Complement C3 Complement C4 Coronavirus (PCR) Crossmatch 06/05/20 06/05/20 06/06/20 15:50 23:36 10:31 WBC 18.3 H RBC Hgb Hct MCHC RDW 15.6 H Lymph % (Auto) Lymph # Meagher # Seg Neutrophils % Seg Neuts % (Manual) 90.0 H Lymphocytes % (Manual) 6.0 L Seg Neutrophils # Seg Neutrophils # Man 16.5 H Lymphocytes # (Manual) 1.1 L Monocytes # (Manual) PT INR D-Dimer ABG pH POC ABG pCO2 POC ABG pO2 ABG pO2 ABG HCO3 ABG O2 Saturation ABG Base Excess ABG Hemoglobin ABG Oxyhemoglobin Oxyhemoglobin Carboxyhemoglobin Sodium Potassium Chloride Carbon Dioxide BUN Creatinine Glucose POC Glucose 197 H 193 H Hemoglobin A1c Calcium Ferritin Alkaline Phosphatase Lactate Dehydrogenase Total Creatine Kinase C-Reactive Protein Albumin Rxqyf-8-Ajmrmybrd Tzycm-7-Pqvjjwyzr Beta Globulins PEP Interpretation Triglycerides Urine Creatinine Complement C3 Complement C4 Coronavirus (PCR) Crossmatch 06/06/20 06/06/20 06/06/20 10:31 12:34 17:34 WBC RBC Hgb Hct MCHC RDW Lymph % (Auto) Lymph # Me[place] # Seg Neutrophils % Seg Neuts % (Manual) Lymphocytes % (Manual) Seg Neutrophils # Seg Neutrophils # Man Lymphocytes # (Manual) Monocytes # (Manual) PT INR D-Dimer ABG pH POC ABG pCO2 POC ABG pO2 ABG pO2 ABG HCO3 ABG O2 Saturation ABG Base Excess ABG Hemoglobin ABG Oxyhemoglobin Oxyhemoglobin Carboxyhemoglobin Sodium Potassium Chloride Carbon Dioxide BUN 65 H Creatinine 2.7 H Glucose 61 L POC Glucose 50 L 117 H Hemoglobin A1c Calcium Ferritin Alkaline Phosphatase Lactate Dehydrogenase Total Creatine Kinase C-Reactive Protein Albumin Dpkjb-9-Yfcoktney Chsyg-5-Jobpqtbfl Beta Globulins PEP Interpretation Triglycerides Urine Creatinine Complement C3 Complement C4 Coronavirus (PCR) Crossmatch 06/07/20 06/07/20 06/07/20 04:40 04:40 06:07 WBC 16.3 H RBC Hgb Hct MCHC RDW 15.6 H Lymph % (Auto) 4.9 L Lymph # 0.8 L Meagher # 0.9 H Seg Neutrophils % 89.3 H Seg Neuts % (Manual) Lymphocytes % (Manual) Seg Neutrophils # 14.6 H Seg Neutrophils # Man Lymphocytes # (Manual) Monocytes # (Manual) PT INR D-Dimer ABG pH POC ABG pCO2 POC ABG pO2 ABG pO2 ABG HCO3 ABG O2 Saturation ABG Base Excess ABG Hemoglobin ABG Oxyhemoglobin Oxyhemoglobin Carboxyhemoglobin Sodium Potassium 5.1 H D Chloride Carbon Dioxide BUN 67 H Creatinine 2.6 H Glucose 52 L POC Glucose 45 L Hemoglobin A1c Calcium Ferritin Alkaline Phosphatase Lactate Dehydrogenase Total Creatine Kinase C-Reactive Protein Albumin Wnjjy-7-Igykmxoze Hqwpy-3-Qtgmnxduw Beta Globulins PEP Interpretation Triglycerides Urine Creatinine Complement C3 Complement C4 Coronavirus (PCR) Crossmatch 06/07/20 06/07/20 06/07/20 10:34 10:49 12:26 WBC RBC Hgb Hct MCHC RDW Lymph % (Auto) Lymph # Me[place] # Seg Neutrophils % Seg Neuts % (Manual) Lymphocytes % (Manual) Seg Neutrophils # Seg Neutrophils # Man Lymphocytes # (Manual) Monocytes # (Manual) PT INR D-Dimer ABG pH POC ABG pCO2 POC ABG pO2 ABG pO2 ABG HCO3 ABG O2 Saturation ABG Base Excess ABG Hemoglobin ABG Oxyhemoglobin Oxyhemoglobin Carboxyhemoglobin Sodium Potassium Chloride Carbon Dioxide BUN Creatinine Glucose POC Glucose 57 L 54 L 192 H Hemoglobin A1c Calcium Ferritin Alkaline Phosphatase Lactate Dehydrogenase Total Creatine Kinase C-Reactive Protein Albumin Bhhdv-4-Bhvrtuump Kekcr-1-Texhbhwyp Beta Globulins PEP Interpretation Triglycerides Urine Creatinine Complement C3 Complement C4 Coronavirus (PCR) Crossmatch 06/07/20 06/08/20 06/08/20 17:42 00:12 04:52 WBC 18.8 H RBC Hgb Hct MCHC RDW 15.6 H Lymph % (Auto) 4.6 L Lymph # 0.9 L Meagher # 1.0 H Seg Neutrophils % 89.7 H Seg Neuts % (Manual) Lymphocytes % (Manual) Seg Neutrophils # 16.9 H Seg Neutrophils # Man Lymphocytes # (Manual) Monocytes # (Manual) PT INR D-Dimer ABG pH POC ABG pCO2 POC ABG pO2 ABG pO2 ABG HCO3 ABG O2 Saturation ABG Base Excess ABG Hemoglobin ABG Oxyhemoglobin Oxyhemoglobin Carboxyhemoglobin Sodium Potassium Chloride Carbon Dioxide BUN Creatinine Glucose POC Glucose 241 H 285 H Hemoglobin A1c Calcium Ferritin Alkaline Phosphatase Lactate Dehydrogenase Total Creatine Kinase C-Reactive Protein Albumin Popfe-4-Fyydvwdek Lpjsg-8-Utzpsexrg Beta Globulins PEP Interpretation Triglycerides Urine Creatinine Complement C3 Complement C4 Coronavirus (PCR) Crossmatch 06/08/20 06/08/20 06/08/20 04:52 05:41 12:44 WBC RBC Hgb Hct MCHC RDW Lymph % (Auto) Lymph # Meagher # Seg Neutrophils % Seg Neuts % (Manual) Lymphocytes % (Manual) Seg Neutrophils # Seg Neutrophils # Man Lymphocytes # (Manual) Monocytes # (Manual) PT INR D-Dimer ABG pH POC ABG pCO2 POC ABG pO2 ABG pO2 ABG HCO3 ABG O2 Saturation ABG Base Excess ABG Hemoglobin ABG Oxyhemoglobin Oxyhemoglobin Carboxyhemoglobin Sodium Potassium Chloride Carbon Dioxide BUN 66 H Creatinine 2.6 H Glucose 175 H POC Glucose 177 H 172 H Hemoglobin A1c Calcium Ferritin Alkaline Phosphatase Lactate Dehydrogenase Total Creatine Kinase C-Reactive Protein Albumin Fmakf-2-Phzsvkunn Purcs-6-Ohtuulqeq Beta Globulins PEP Interpretation Triglycerides Urine Creatinine Complement C3 Complement C4 Coronavirus (PCR) Crossmatch 06/08/20 06/08/20 06/09/20 18:18 23:39 01:03 WBC 19.6 H RBC Hgb Hct MCHC 36 H RDW 15.5 H Lymph % (Auto) 5.3 L Lymph # 1.0 L Meagher # Seg Neutrophils % Seg Neuts % (Manual) Lymphocytes % (Manual) Seg Neutrophils # 17.7 H Seg Neutrophils # Man Lymphocytes # (Manual) Monocytes # (Manual) PT INR D-Dimer ABG pH POC ABG pCO2 POC ABG pO2 ABG pO2 ABG HCO3 ABG O2 Saturation ABG Base Excess ABG Hemoglobin ABG Oxyhemoglobin Oxyhemoglobin Carboxyhemoglobin Sodium Potassium Chloride Carbon Dioxide BUN Creatinine Glucose POC Glucose 251 H 196 H Hemoglobin A1c Calcium Ferritin Alkaline Phosphatase Lactate Dehydrogenase Total Creatine Kinase C-Reactive Protein Albumin Qobar-9-Regdvyadu Swicq-2-Ncngcjrti Beta Globulins PEP Interpretation Triglycerides Urine Creatinine Complement C3 Complement C4 Coronavirus (PCR) Crossmatch 06/09/20 06/09/20 06/09/20 01:03 05:42 06:02 WBC RBC Hgb Hct MCHC RDW Lymph % (Auto) Lymph # [place] # Seg Neutrophils % Seg Neuts % (Manual) Lymphocytes % (Manual) Seg Neutrophils # Seg Neutrophils # Man Lymphocytes # (Manual) Monocytes # (Manual) PT INR D-Dimer ABG pH POC ABG pCO2 POC ABG pO2 ABG pO2 ABG HCO3 ABG O2 Saturation ABG Base Excess ABG Hemoglobin ABG Oxyhemoglobin Oxyhemoglobin Carboxyhemoglobin Sodium 136 L Potassium Chloride Carbon Dioxide 20 L 20 L BUN 68 H 66 H Creatinine 2.7 H 2.7 H Glucose 180 H 141 H POC Glucose 136 H Hemoglobin A1c Calcium 8.3 L Ferritin Alkaline Phosphatase Lactate Dehydrogenase Total Creatine Kinase C-Reactive Protein Albumin 2.6 L Jaoeb-3-Pciawburx Wrsrj-2-Fbavqaydz Beta Globulins PEP Interpretation Triglycerides Urine Creatinine Complement C3 Complement C4 Coronavirus (PCR) Crossmatch 06/09/20 06/09/20 06/09/20 09:21 09:21 09:21 WBC RBC Hgb Hct MCHC RDW Lymph % (Auto) Lymph # [place] # Seg Neutrophils % Seg Neuts % (Manual) Lymphocytes % (Manual) Seg Neutrophils # Seg Neutrophils # Man Lymphocytes # (Manual) Monocytes # (Manual) PT INR D-Dimer > 10024 H ABG pH POC ABG pCO2 POC ABG pO2 ABG pO2 ABG HCO3 ABG O2 Saturation ABG Base Excess ABG Hemoglobin ABG Oxyhemoglobin Oxyhemoglobin Carboxyhemoglobin Sodium Potassium Chloride Carbon Dioxide BUN Creatinine Glucose 195 H POC Glucose Hemoglobin A1c Calcium Ferritin 1045.0 H Alkaline Phosphatase Lactate Dehydrogenase 461 H Total Creatine Kinase C-Reactive Protein 9.30 H Albumin Rdpub-8-Jajocoebm Bhuuv-2-Htycgpdax Beta Globulins PEP Interpretation Triglycerides Urine Creatinine Complement C3 Complement C4 Coronavirus (PCR) Crossmatch 06/09/20 06/09/20 06/09/20 10:26 17:30 22:22 WBC RBC Hgb Hct MCHC RDW Lymph % (Auto) Lymph # [place] # Seg Neutrophils % Seg Neuts % (Manual) Lymphocytes % (Manual) Seg Neutrophils # Seg Neutrophils # Man Lymphocytes # (Manual) Monocytes # (Manual) PT INR D-Dimer ABG pH POC ABG pCO2 POC ABG pO2 ABG pO2 ABG HCO3 ABG O2 Saturation ABG Base Excess ABG Hemoglobin ABG Oxyhemoglobin Oxyhemoglobin Carboxyhemoglobin Sodium Potassium Chloride Carbon Dioxide BUN Creatinine Glucose POC Glucose 178 H 219 H 167 H Hemoglobin A1c Calcium Ferritin Alkaline Phosphatase Lactate Dehydrogenase Total Creatine Kinase C-Reactive Protein Albumin Csgfj-2-Drvokdcxe Afoqt-0-Roynnvdah Beta Globulins PEP Interpretation Triglycerides Urine Creatinine Complement C3 Complement C4 Coronavirus (PCR) Crossmatch 06/10/20 06/10/20 06/10/20 00:34 00:34 04:42 WBC 18.6 H RBC Hgb Hct MCHC RDW 15.6 H Lymph % (Auto) Lymph # [place] # Seg Neutrophils % Seg Neuts % (Manual) 94.0 H Lymphocytes % (Manual) 2.0 L Seg Neutrophils # Seg Neutrophils # Man 17.5 H Lymphocytes # (Manual) 0.4 L Monocytes # (Manual) PT INR D-Dimer ABG pH POC ABG pCO2 POC ABG pO2 ABG pO2 ABG HCO3 ABG O2 Saturation ABG Base Excess ABG Hemoglobin ABG Oxyhemoglobin Oxyhemoglobin Carboxyhemoglobin Sodium Potassium 5.5 H 6.0 H Chloride Carbon Dioxide 21 L 19 L BUN 70 H 68 H Creatinine 2.6 H 2.8 H Glucose 177 H 185 H POC Glucose Hemoglobin A1c Calcium Ferritin Alkaline Phosphatase 134 H Lactate Dehydrogenase Total Creatine Kinase C-Reactive Protein Albumin 2.9 L Wngpb-6-Ivjnosjua Dfwff-1-Bajwcrbvm Beta Globulins PEP Interpretation Triglycerides Urine Creatinine Complement C3 Complement C4 Coronavirus (PCR) Crossmatch 06/10/20 06/10/20 06/10/20 05:54 11:04 13:18 WBC RBC Hgb Hct MCHC RDW Lymph % (Auto) Lymph # [place] # Seg Neutrophils % Seg Neuts % (Manual) Lymphocytes % (Manual) Seg Neutrophils # Seg Neutrophils # Man Lymphocytes # (Manual) Monocytes # (Manual) PT INR D-Dimer ABG pH POC ABG pCO2 31.7 L POC ABG pO2 57.9 L ABG pO2 ABG HCO3 ABG O2 Saturation ABG Base Excess ABG Hemoglobin ABG Oxyhemoglobin Oxyhemoglobin Carboxyhemoglobin Sodium Potassium Chloride Carbon Dioxide BUN Creatinine Glucose POC Glucose 171 H 243 H Hemoglobin A1c Calcium Ferritin Alkaline Phosphatase Lactate Dehydrogenase Total Creatine Kinase C-Reactive Protein Albumin Llfxy-9-Jncthmvtt Jgyry-3-Fynaqaoxy Beta Globulins PEP Interpretation Triglycerides Urine Creatinine Complement C3 Complement C4 Coronavirus (PCR) Crossmatch 06/10/20 06/11/20 06/11/20 17:28 00:14 00:14 WBC 21.1 H RBC Hgb Hct MCHC RDW 15.4 H Lymph % (Auto) Lymph # [place] # Seg Neutrophils % Seg Neuts % (Manual) 93.0 H Lymphocytes % (Manual) 5.0 L Seg Neutrophils # Seg Neutrophils # Man 19.6 H Lymphocytes # (Manual) 1.1 L Monocytes # (Manual) PT INR D-Dimer ABG pH POC ABG pCO2 POC ABG pO2 ABG pO2 ABG HCO3 ABG O2 Saturation ABG Base Excess ABG Hemoglobin ABG Oxyhemoglobin Oxyhemoglobin Carboxyhemoglobin Sodium Potassium Chloride Carbon Dioxide 18 L BUN 73 H Creatinine 2.7 H Glucose 216 H POC Glucose 265 H Hemoglobin A1c Calcium Ferritin Alkaline Phosphatase 134 H Lactate Dehydrogenase Total Creatine Kinase C-Reactive Protein Albumin 2.7 L Uocct-4-Afgjifigp Fnirm-6-Eewpunmka Beta Globulins PEP Interpretation Triglycerides Urine Creatinine Complement C3 Complement C4 Coronavirus (PCR) Crossmatch 06/11/20 06/11/20 06/11/20 05:27 13:14 17:27 WBC RBC Hgb Hct MCHC RDW Lymph % (Auto) Lymph # [place] # Seg Neutrophils % Seg Neuts % (Manual) Lymphocytes % (Manual) Seg Neutrophils # Seg Neutrophils # Man Lymphocytes # (Manual) Monocytes # (Manual) PT INR D-Dimer ABG pH POC ABG pCO2 POC ABG pO2 ABG pO2 ABG HCO3 ABG O2 Saturation ABG Base Excess ABG Hemoglobin ABG Oxyhemoglobin Oxyhemoglobin Carboxyhemoglobin Sodium Potassium Chloride Carbon Dioxide BUN Creatinine Glucose POC Glucose 241 H 273 H 317 H Hemoglobin A1c Calcium Ferritin Alkaline Phosphatase Lactate Dehydrogenase Total Creatine Kinase C-Reactive Protein Albumin Oztav-6-Yobshmjnz Phokn-3-Usglddauw Beta Globulins PEP Interpretation Triglycerides Urine Creatinine Complement C3 Complement C4 Coronavirus (PCR) Crossmatch 06/11/20 06/11/20 06/11/20 18:21 22:13 23:47 WBC RBC Hgb Hct MCHC RDW Lymph % (Auto) Lymph # [place] # Seg Neutrophils % Seg Neuts % (Manual) Lymphocytes % (Manual) Seg Neutrophils # Seg Neutrophils # Man Lymphocytes # (Manual) Monocytes # (Manual) PT INR D-Dimer ABG pH POC ABG pCO2 POC ABG pO2 ABG pO2 ABG HCO3 ABG O2 Saturation ABG Base Excess ABG Hemoglobin ABG Oxyhemoglobin Oxyhemoglobin Carboxyhemoglobin Sodium Potassium Chloride Carbon Dioxide BUN Creatinine Glucose POC Glucose 350 H 317 H 303 H Hemoglobin A1c Calcium Ferritin Alkaline Phosphatase Lactate Dehydrogenase Total Creatine Kinase C-Reactive Protein Albumin Xbjqo-8-Ghlxybjwd Dvrmd-7-Dpsryucrw Beta Globulins PEP Interpretation Triglycerides Urine Creatinine Complement C3 Complement C4 Coronavirus (PCR) Crossmatch 06/12/20 06/12/2020 05:34 05:34 06:17 WBC 25.2 H RBC 5.14 H Hgb Hct MCHC RDW 15.5 H Lymph % (Auto) Lymph # [place] # Seg Neutrophils % Seg Neuts % (Manual) 93.0 H Lymphocytes % (Manual) 2.0 L Seg Neutrophils # Seg Neutrophils # Man 23.4 H Lymphocytes # (Manual) 0.5 L Monocytes # (Manual) 1.3 H PT INR D-Dimer ABG pH POC ABG pCO2 POC ABG pO2 ABG pO2 ABG HCO3 ABG O2 Saturation ABG Base Excess ABG Hemoglobin ABG Oxyhemoglobin Oxyhemoglobin Carboxyhemoglobin Sodium 148 H Potassium Chloride 108.7 H Carbon Dioxide 19 L BUN 88 H Creatinine 3.7 H Glucose 314 H POC Glucose 281 H Hemoglobin A1c Calcium Ferritin Alkaline Phosphatase Lactate Dehydrogenase Total Creatine Kinase C-Reactive Protein Albumin Ajack-9-[place] Xenpl-0-Uefcfxnlk Beta Globulins PEP Interpretation Triglycerides Urine Creatinine Complement C3 Complement C4 Coronavirus (PCR) Crossmatch 06/12/20 06/12/20 06/12/20 09:32 11:38 13:17 WBC RBC Hgb Hct MCHC RDW Lymph % (Auto) Lymph # [place] # Seg Neutrophils % Seg Neuts % (Manual) Lymphocytes % (Manual) Seg Neutrophils # Seg Neutrophils # Man Lymphocytes # (Manual) Monocytes # (Manual) PT INR D-Dimer ABG pH 7.056 L POC ABG pCO2 30.5 L 88.1 H POC ABG pO2 49.5 L ABG pO2 ABG HCO3 ABG O2 Saturation ABG Base Excess ABG Hemoglobin ABG Oxyhemoglobin 92.7 L Oxyhemoglobin Carboxyhemoglobin 0.1 L Sodium Potassium Chloride Carbon Dioxide BUN Creatinine Glucose POC Glucose 353 H Hemoglobin A1c Calcium Ferritin Alkaline Phosphatase Lactate Dehydrogenase Total Creatine Kinase C-Reactive Protein Albumin Drrbd-7-Tqzjvnyez Fyodk-8-Zpzkmsfch Beta Globulins PEP Interpretation Triglycerides Urine Creatinine Complement C3 Complement C4 Coronavirus (PCR) Crossmatch 06/12/20 06/12/20 06/13/20 17:45 23:53 03:30 WBC RBC Hgb Hct MCHC RDW Lymph % (Auto) Lymph # [place] # Seg Neutrophils % Seg Neuts % (Manual) Lymphocytes % (Manual) Seg Neutrophils # Seg Neutrophils # Man Lymphocytes # (Manual) Monocytes # (Manual) PT INR D-Dimer ABG pH 7.091 L* POC ABG pCO2 POC ABG pO2 ABG pO2 172.6 H ABG HCO3 ABG O2 Saturation ABG Base Excess -7.3 L ABG Hemoglobin ABG Oxyhemoglobin Oxyhemoglobin Carboxyhemoglobin Sodium Potassium Chloride Carbon Dioxide BUN Creatinine Glucose POC Glucose 348 H 279 H Hemoglobin A1c Calcium Ferritin Alkaline Phosphatase Lactate Dehydrogenase Total Creatine Kinase C-Reactive Protein Albumin Miwfn-9-Fbgsurjrg Gixga-5-Vdfyxhsme Beta Globulins PEP Interpretation Triglycerides Urine Creatinine Complement C3 Complement C4 Coronavirus (PCR) Crossmatch 06/13/20 06/13/20 06/13/20 05:06 05:06 06:03 WBC 30.3 H RBC Hgb Hct MCHC RDW 16.0 H Lymph % (Auto) 2.4 L Lymph # 0.7 L Meagher # 1.6 H Seg Neutrophils % Seg Neuts % (Manual) Lymphocytes % (Manual) Seg Neutrophils # 27.9 H Seg Neutrophils # Man Lymphocytes # (Manual) Monocytes # (Manual) PT INR D-Dimer ABG pH POC ABG pCO2 POC ABG pO2 ABG pO2 ABG HCO3 ABG O2 Saturation ABG Base Excess ABG Hemoglobin ABG Oxyhemoglobin Oxyhemoglobin Carboxyhemoglobin Sodium 148 H Potassium 8.8 H* D Chloride 109.5 H Carbon Dioxide BUN 118 H Creatinine 6.4 H D Glucose 272 H POC Glucose 285 H Hemoglobin A1c Calcium 7.7 L D Ferritin Alkaline Phosphatase Lactate Dehydrogenase Total Creatine Kinase C-Reactive Protein Albumin 2.5 L Mlcpi-8-Vpyglnyhf Xjnml-3-Mbmtiwpni Beta Globulins PEP Interpretation Triglycerides Urine Creatinine Complement C3 Complement C4 Coronavirus (PCR) Crossmatch 06/13/20 06/13/20 06/13/20 12:15 16:06 17:12 WBC RBC Hgb Hct MCHC RDW Lymph % (Auto) Lymph # [place] # Seg Neutrophils % Seg Neuts % (Manual) Lymphocytes % (Manual) Seg Neutrophils # Seg Neutrophils # Man Lymphocytes # (Manual) Monocytes # (Manual) PT INR D-Dimer ABG pH POC ABG pCO2 POC ABG pO2 ABG pO2 ABG HCO3 ABG O2 Saturation ABG Base Excess ABG Hemoglobin ABG Oxyhemoglobin Oxyhemoglobin Carboxyhemoglobin Sodium 146 H Potassium Chloride Carbon Dioxide BUN 68 H Creatinine 4.5 H Glucose 298 H POC Glucose 288 H 260 H Hemoglobin A1c Calcium 7.2 L Ferritin Alkaline Phosphatase Lactate Dehydrogenase Total Creatine Kinase C-Reactive Protein Albumin Zbmhl-6-Qcxcoyasl Zcegs-6-Payjjcrgs Beta Globulins PEP Interpretation Triglycerides Urine Creatinine Complement C3 Complement C4 Coronavirus (PCR) Crossmatch 06/14/20 06/14/20 06/14/20 00:13 04:44 05:30 WBC RBC Hgb Hct MCHC RDW Lymph % (Auto) Lymph # [place] # Seg Neutrophils % Seg Neuts % (Manual) Lymphocytes % (Manual) Seg Neutrophils # Seg Neutrophils # Man Lymphocytes # (Manual) Monocytes # (Manual) PT INR D-Dimer ABG pH POC ABG pCO2 POC ABG pO2 ABG pO2 ABG HCO3 ABG O2 Saturation ABG Base Excess ABG Hemoglobin ABG Oxyhemoglobin Oxyhemoglobin Carboxyhemoglobin Sodium Potassium Chloride Carbon Dioxide BUN 88 H Creatinine 6.0 H Glucose 254 H POC Glucose 279 H 253 H Hemoglobin A1c Calcium 6.8 L Ferritin Alkaline Phosphatase Lactate Dehydrogenase Total Creatine Kinase C-Reactive Protein Albumin Ahmdq-6-Hshgmsctr Opyxk-2-Gizmvlmuh Beta Globulins PEP Interpretation Triglycerides Urine Creatinine Complement C3 Complement C4 Coronavirus (PCR) Crossmatch 06/14/20 06/14/20 06/14/20 06:00 12:49 17:25 WBC RBC Hgb Hct MCHC RDW Lymph % (Auto) Lymph # [place] # Seg Neutrophils % Seg Neuts % (Manual) Lymphocytes % (Manual) Seg Neutrophils # Seg Neutrophils # Man Lymphocytes # (Manual) Monocytes # (Manual) PT INR D-Dimer ABG pH 7.270 L POC ABG pCO2 POC ABG pO2 ABG pO2 163.1 H ABG HCO3 29.6 H ABG O2 Saturation ABG Base Excess ABG Hemoglobin 5.5 L ABG Oxyhemoglobin Oxyhemoglobin Carboxyhemoglobin Sodium Potassium Chloride Carbon Dioxide BUN Creatinine Glucose POC Glucose 244 H 208 H Hemoglobin A1c Calcium Ferritin Alkaline Phosphatase Lactate Dehydrogenase Total Creatine Kinase C-Reactive Protein Albumin Kfmoq-7-Tgwzkuhct Bwneg-8-Ovzgqlcpt Beta Globulins PEP Interpretation Triglycerides Urine Creatinine Complement C3 Complement C4 Coronavirus (PCR) Crossmatch 06/15/20 06/15/20 06/15/20 00:29 01:44 03:21 WBC RBC Hgb Hct MCHC RDW Lymph % (Auto) Lymph # [place] # Seg Neutrophils % Seg Neuts % (Manual) Lymphocytes % (Manual) Seg Neutrophils # Seg Neutrophils # Man Lymphocytes # (Manual) Monocytes # (Manual) PT INR D-Dimer ABG pH POC ABG pCO2 POC ABG pO2 ABG pO2 ABG HCO3 ABG O2 Saturation ABG Base Excess ABG Hemoglobin ABG Oxyhemoglobin Oxyhemoglobin Carboxyhemoglobin Sodium Potassium Chloride 94.4 L Carbon Dioxide BUN 96 H Creatinine 6.4 H Glucose 234 H POC Glucose 199 H Hemoglobin A1c Calcium 7.7 L Ferritin Alkaline Phosphatase Lactate Dehydrogenase Total Creatine Kinase C-Reactive Protein Albumin Lrlpr-7-Mldhxgocr Idqno-9-Ynzxpgcil Beta Globulins PEP Interpretation Triglycerides 268 H Urine Creatinine Complement C3 Complement C4 Coronavirus (PCR) Crossmatch See Detail 06/15/20 06/15/20 06/15/20 03:21 05:23 10:00 WBC 33.0 H RBC 3.18 L Hgb 9.3 L Hct 28.0 L D MCHC RDW 15.4 H Lymph % (Auto) Lymph # [place] # Seg Neutrophils % Seg Neuts % (Manual) 94.0 H Lymphocytes % (Manual) 2.0 L Seg Neutrophils # Seg Neutrophils # Man 31.0 H Lymphocytes # (Manual) 0.7 L Monocytes # (Manual) 1.3 H PT INR D-Dimer ABG pH 7.214 L POC ABG pCO2 69.9 H POC ABG pO2 72.0 L ABG pO2 ABG HCO3 ABG O2 Saturation ABG Base Excess ABG Hemoglobin 9.7 L ABG Oxyhemoglobin Oxyhemoglobin Carboxyhemoglobin Sodium Potassium Chloride Carbon Dioxide BUN Creatinine Glucose POC Glucose 272 H Hemoglobin A1c Calcium Ferritin Alkaline Phosphatase Lactate Dehydrogenase Total Creatine Kinase C-Reactive Protein Albumin Yjtyn-1-Mroymupnk Urgee-6-Ccazkpnhb Beta Globulins PEP Interpretation Triglycerides Urine Creatinine Complement C3 Complement C4 Coronavirus (PCR) Crossmatch 06/15/20 06/15/20 06/15/20 11:26 12:30 18:02 WBC RBC Hgb 8.4 L Hct 25.8 L MCHC RDW Lymph % (Auto) Lymph # [place] # Seg Neutrophils % Seg Neuts % (Manual) Lymphocytes % (Manual) Seg Neutrophils # Seg Neutrophils # Man Lymphocytes # (Manual) Monocytes # (Manual) PT INR D-Dimer ABG pH POC ABG pCO2 POC ABG pO2 ABG pO2 ABG HCO3 ABG O2 Saturation ABG Base Excess ABG Hemoglobin ABG Oxyhemoglobin Oxyhemoglobin Carboxyhemoglobin Sodium Potassium Chloride Carbon Dioxide BUN Creatinine Glucose POC Glucose 278 H 250 H Hemoglobin A1c Calcium Ferritin Alkaline Phosphatase Lactate Dehydrogenase Total Creatine Kinase C-Reactive Protein Albumin Ysthq-8-Meaamslkk Rvokk-5-Ekvxdyiwr Beta Globulins PEP Interpretation Triglycerides Urine Creatinine Complement C3 Complement C4 Coronavirus (PCR) Crossmatch 06/16/20 06/16/20 06/16/20 00:24 03:49 06:00 WBC RBC Hgb Hct MCHC RDW Lymph % (Auto) Lymph # [place] # Seg Neutrophils % Seg Neuts % (Manual) Lymphocytes % (Manual) Seg Neutrophils # Seg Neutrophils # Man Lymphocytes # (Manual) Monocytes # (Manual) PT INR D-Dimer ABG pH 7.201 L POC ABG pCO2 POC ABG pO2 ABG pO2 ABG HCO3 28.4 H ABG O2 Saturation 93.9 L ABG Base Excess ABG Hemoglobin 7.0 L ABG Oxyhemoglobin Oxyhemoglobin 91.9 L Carboxyhemoglobin Sodium Potassium Chloride Carbon Dioxide BUN Creatinine Glucose POC Glucose 189 H 165 H Hemoglobin A1c Calcium Ferritin Alkaline Phosphatase Lactate Dehydrogenase Total Creatine Kinase C-Reactive Protein Albumin Otyyj-7-Pkmufwsuc Jniwd-4-Saelvlgyy Beta Globulins PEP Interpretation Triglycerides Urine Creatinine Complement C3 Complement C4 Coronavirus (PCR) Crossmatch
[2020-06-16 11:23] LABS: Hematocrit 25.6 % (35.5-45.6); Hemoglobin 8.9 gm/dl (11.8-15.2); Mean Corpuscular HGB Conc 35 % (32-34); Mean Corpuscular Volume 87 fl (84-94); Platelet Count 136 K/mm3 (140-440); Red Blood Count 2.95 M/mm3 (3.65-5.03); Red Cell Distribution Width 14.6 % (13.2-15.2)
--- NOTE | 2020-06-16 11:26 | Progress Note ---
Assessment and Plan unchanged cv status cont iv amio (low dose) anemia worsening wean pressors supportive care very poor prognosis - Patient Problems (1) Acute kidney injury superimposed on CKD Current Visit: Yes Status: Acute (2) Elevated d-dimer Current Visit: Yes Status: Acute (3) Paroxysmal atrial fibrillation with RVR Current Visit: Yes Status: Acute (4) Pneumonia due to COVID-19 virus Current Visit: Yes Status: Acute (5) Suspected COVID-19 virus infection Current Visit: Yes Status: Acute (6) Diabetes Current Visit: Yes Status: Chronic Qualifiers: Diabetes mellitus type: type 2 Diabetes mellitus 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 Diabetes mellitus complication status: with hyperglycemia Qualified Code(s): E11.65 - Type 2 diabetes mellitus with hyperglycemia; Z79.4 - custodial (current) use of insulin (7) HTN (hypertension) Current Visit: Yes Status: Chronic Qualifiers: Hypertension type: essential hypertension Qualified Code(s): I10 - Essential (primary) hypertension (8) Acute renal failure Current Visit: No Status: Acute (9) Cervical spondylosis with myelopathy and radiculopathy Current Visit: No Status: Acute (10) DVT prophylaxis Current Visit: No Status: Acute (11) HLD (hyperlipidemia) Current Visit: No Status: Acute Subjective Principal diagnosis: COVID-19 PNA, AF RVR Interval history: no changes overnight intubated/nonresponsive Objective Vital Signs Temp Pulse Pulse Resp BP Pulse Ox Pulse Ox 06/16/20 11:00 85 19 98/71 95 06/16/20 10:45 90 16 92/64 94 06/16/20 10:31 89 18 101/60 93 06/16/20 10:17 99.4 F 90 21 121/65 94 06/16/20 10:15 91 H 21 121/65 100 06/16/20 10:00 90 29 H 127/66 100 06/16/20 09:53 99.4 F 84 16 128/59 99 06/16/20 09:45 87 24 128/59 100 06/16/20 09:35 99.2 F 88 19 123/66 94 06/16/20 09:31 87 21 123/66 100 06/16/20 09:21 87 20 127/57 100 06/16/20 09:11 92 H 21 116/62 94 06/16/20 09:00 84 22 116/62 94 06/16/20 08:53 99.8 F H 86 18 123/66 95 06/16/20 08:51 85 22 125/64 95 06/16/20 08:41 85 25 H 113/55 93 06/16/20 08:31 89 18 113/55 94 06/16/20 08:23 99.2 F 95 H 21 117/58 95 06/16/20 08:21 92 H 21 125/66 93 06/16/20 08:18 89 125/66 95 06/16/20 08:08 99.2 F 89 26 H 131/68 97 06/16/20 08:00 99.2 F 94 H 89 26 H 131/68 97 06/16/20 07:45 90 21 135/69 96 06/16/20 07:30 89 18 142/69 100 06/16/20 07:15 85 21 149/76 96 06/16/20 07:00 87 29 H 158/77 100 06/16/20 06:57 99.2 F 88 17 131/68 97 06/16/20 06:56 98.4 F 06/16/20 06:51 88 24 139/74 96 06/16/20 06:41 89 20 137/74 97 06/16/20 06:30 97 H 25 H 137/74 100 06/16/20 06:21 89 25 H 142/79 97 06/16/20 06:11 96 H 23 131/74 99 06/16/20 06:06 98.1 F 06/16/20 06:01 91 H 25 H 131/74 97 06/16/20 05:51 88 19 123/72 96 06/16/20 05:45 89 29 H 103/76 96 06/16/20 05:35 98 F 90 25 H 123/72 97 06/16/20 05:30 88 26 H 103/76 95 06/16/20 05:15 88 18 112/73 95 06/16/20 05:00 89 19 111/81 96 06/16/20 04:45 94 H 15 118/82 96 06/16/20 04:30 93 H 15 127/75 96 06/16/20 04:17 89 129/72 96 06/16/20 04:15 89 20 129/72 96 06/16/20 04:01 91 H 14 120/64 96 09/13/20 04:00 98.6 F 82 90 26 H 97 06/16/20 03:45 96 H 17 128/83 95 06/16/20 03:30 92 H 19 118/76 96 06/16/20 03:15 94 H 24 126/73 96 06/16/20 03:00 92 H 19 138/66 96 06/16/20 02:45 92 H 26 H 135/75 96 06/16/20 02:30 95 H 20 133/79 97 06/16/20 02:15 94 H 25 H 130/85 96 06/16/20 02:00 93 H 18 114/81 95 06/16/20 01:45 97 H 19 117/78 96 06/16/20 01:30 95 H 21 123/75 96 06/16/20 01:15 96 H 20 141/77 96 06/16/20 01:01 92 H 21 138/72 96 06/16/20 00:45 94 H 21 133/68 97 06/16/20 00:30 87 20 111/68 95 06/16/20 00:16 86 19 113/48 94 06/16/20 00:13 87 113/48 100 06/16/20 00:01 96 H 21 113/48 93 06/16/20 00:00 98.5 F 95 H 90 23 130/71 94 06/15/20 23:45 93 H 20 130/71 95 06/15/20 23:30 92 H 21 139/67 96 06/15/20 23:16 93 H 23 129/70 95 06/15/20 23:00 95 H 20 123/70 95 06/15/20 22:45 94 H 21 115/70 98 06/15/20 22:30 93 H 22 134/71 97 06/15/20 22:15 92 H 22 118/70 96 06/15/20 22:00 94 H 21 123/71 95 06/15/20 21:45 95 H 22 118/70 96 06/15/20 21:30 96 H 23 121/69 95 06/15/20 21:15 95 H 20 115/73 95 06/15/20 21:00 94 H 20 97/70 93 06/15/20 20:45 96 H 21 104/65 95 06/15/20 20:32 95 H 114/65 95 06/15/20 20:30 96 H 22 114/65 94 06/15/20 20:15 99 H 21 116/62 95 06/15/20 20:00 99.3 F 98 H 90 18 115/67 95 06/15/20 19:45 98 H 19 99/62 95 06/15/20 19:30 99 H 22 95/59 93 06/15/20 19:15 99 H 22 110/65 94 06/15/20 19:00 102 H 24 117/73 95 06/15/20 18:45 101 H 22 102/72 96 06/15/20 18:30 107 H 18 102/66 95 06/15/20 18:15 100 H 22 80/53 94 06/15/20 18:00 102 H 21 83/55 89 06/15/20 17:45 104 H 22 109/62 96 06/15/20 17:30 96 H 22 78/46 97 06/15/20 17:16 86 67/30 86 06/15/20 17:00 99 H 88/52 91 06/15/20 16:50 99 H 88/52 99 06/15/20 16:45 94 H 23 88/52 96 06/15/20 16:30 94 H 18 78/47 97 06/15/20 16:15 95 H 23 100/41 97 06/15/20 16:00 102.7 F H 96 H 95 H 23 93/52 97 06/15/20 15:45 97 H 23 99/58 97 06/15/20 15:30 99 H 20 95/56 96 06/15/20 15:15 99 H 27 H 79/55 95 06/15/20 15:00 101 H 22 89/56 95 06/15/20 14:45 101 H 28 H 90/57 93 06/15/20 14:30 99 H 34 H 77/53 89 06/15/20 14:15 98 H 27 H 81/50 90 06/15/20 14:00 99 F 103 H 18 113/70 92 06/15/20 13:46 102 H 28 H 85/51 90 06/15/20 13:45 97 H 68/45 06/15/20 13:30 109 H 21 88/65 06/15/20 13:25 103 H 88/65 92 06/15/20 13:16 106 H 31 H 87/54 75 L 06/15/20 13:15 102 H 195/130 06/15/20 13:00 105 H 30 H 112/79 91 06/15/20 12:45 105 H 32 H 84/55 93 06/15/20 12:39 105 H 97/59 96 06/15/20 12:30 104 H 33 H 97/59 91 06/15/20 12:15 102 H 32 H 101/74 88 06/15/20 12:10 99 H 93/69 06/15/20 12:00 99.9 F H 102 H 103 H 26 H 88/64 89 90 06/15/20 11:45 105 H 32 H 91/67 90 06/15/20 11:30 102 H 34 H 106/72 94 - Physical Examination General: Other (inubated, sedated) Neck: Positive: neck supple Neuro: Positive: Other (intubated, sedated) Abdomen: Negative: Tender Skin: Negative: Rash Musculoskeletal: No Pain Extremities: Absent: edema - Labs and Meds CBC 06/15/20 Range/Units 12:30 Hgb 8.4 L (11.8-15.2) gm/dl Hct 25.8 L (35.5-45.6) % - Imaging and Cardiology EKG: report reviewed, image reviewed Echo: pending
[2020-06-16] MEDS ORDERED: SODIUM POLYSTYRENE 15 GM/60 ML ORAL LIQD PR ONE (12:21)
[2020-06-16] MEDS ORDERED: INSULIN REGULAR, HUMAN 100 UNIT/ML 3ML VIAL IV ONE (12:22)
[2020-06-16 12:24] LABS: Anisocytosis 1+; Band Neutrophils # (Manual) 0.3 K/mm3; Basophils % (Manual) 0 % (0.0-1.8); Eosinophils % (Manual) 0 % (0.0-4.3); Hypochromasia 1+; Monocytes % (Manual) 1.5 % (0.0-7.3); Nucleated Red Blood Cells 2.5 % (0.0-0.9); Platelet Estimate Consistent w Auto; Stomatocytes Few; Target Cells Few; Total Cells Counted 200
[2020-06-16] MEDS ORDERED: DEXTROSE 50% IN WATER (25GM) 50 ML SYRINGE IV ONE (12:24)
--- NOTE | 2020-06-16 13:31 | Progress Note ---
Assessment and Plan 1. Acute kidney injury: KEITH superimposed on CKD stage 3 in the setting of severe COVID infection and Shock. Renal US report pending. UA results noted. Monitor renal function. Avoid nephrotoxic agents. Meds dosage based on GFR. 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 Patient required hemodialysis due to worsening renal function and hyperkalemia. Explained patient's (06/13) the indications, benefits, risks and alternatives involved in hemodialysis. She voiced understanding and gave consent to proceed. Hemodialysis: 06/13, 06/14, 06/15. 2. FEN: Hyperkalemia, Insulin-D50 ordered, monitor. Metabolic acidosis, improved, monitor. Monitor lytes and volume status. 3. Acute hypoxic respiratory failure: /2 COVID-19 PNA. Intubated 06/12. Followed by Pulmonary. 4. Bilateral COVID-19 PNA: Followed by ID. 5. S/p Cardiac arrest, 06/13: Monitor. 6. Shock: On Levophed and Vasopressin. 7. A.fib with RVR: On Amiodarone. 8. DM with hyperglycemia: Accu-Check, sliding scale coverage, ADA diet. - Subjective: Patient was seen and examined from outside the [facility]. In ICU. D/w RN. - General Appearance General appearance: well-developed, appears stated age, no distress noted, intubated, on vent HEENT: ATNC Subjective Date of service: 06/16/20 Principal diagnosis: COVID-19 PNA, AF RVR Objective - Vital Signs Vital signs: Vital Signs - 12hr 06/16/20 06/16/20 06/16/20 01:45 02:00 02:15 Temperature Pulse Rate 97 H 93 H 94 H Pulse Rate [ From Monitor] Respiratory 19 18 25 H Rate Blood Pressure 117/78 114/81 130/85 O2 Sat by Pulse 96 95 96 Oximetry 06/16/20 06/16/20 06/16/20 02:30 02:45 03:00 Temperature Pulse Rate 95 H 92 H 92 H Pulse Rate [ From Monitor] Respiratory 20 26 H 19 Rate Blood Pressure 133/79 135/75 138/66 O2 Sat by Pulse 97 96 96 Oximetry 06/16/20 06/16/20 06/16/20 03:15 03:30 03:45 Temperature Pulse Rate 94 H 92 H 96 H Pulse Rate [ From Monitor] Respiratory 24 19 17 Rate Blood Pressure 126/73 118/76 128/83 O2 Sat by Pulse 96 96 95 Oximetry 06/16/20 06/16/20 06/16/20 04:00 04:01 04:15 Temperature 98.6 F Pulse Rate 82 91 H 89 Pulse Rate [ 90 From Monitor] Respiratory 26 H 14 20 Rate Blood Pressure 120/64 129/72 O2 Sat by Pulse 97 96 96 Oximetry 06/16/20 06/16/20 06/16/20 04:17 04:30 04:45 Temperature Pulse Rate 89 93 H 94 H Pulse Rate [ From Monitor] Respiratory 15 15 Rate Blood Pressure 129/72 127/75 118/82 O2 Sat by Pulse 96 96 96 Oximetry 06/16/20 06/16/20 06/16/20 05:00 05:15 05:30 Temperature Pulse Rate 89 88 88 Pulse Rate [ From Monitor] Respiratory 19 18 26 H Rate Blood Pressure 111/81 112/73 103/76 O2 Sat by Pulse 96 95 95 Oximetry 06/16/20 06/16/20 06/16/20 05:35 05:45 05:51 Temperature 98 F Pulse Rate 90 89 88 Pulse Rate [ From Monitor] Respiratory 25 H 29 H 19 Rate Blood Pressure 123/72 103/76 123/72 O2 Sat by Pulse 97 96 96 Oximetry 06/16/20 06/16/20 06/16/20 06:01 06:06 06:11 Temperature 98.1 F Pulse Rate 91 H 96 H Pulse Rate [ From Monitor] Respiratory 25 H 23 Rate Blood Pressure 131/74 131/74 O2 Sat by Pulse 97 99 Oximetry 06/16/20 06/16/20 06/16/20 06:21 06:30 06:41 Temperature Pulse Rate 89 97 H 89 Pulse Rate [ From Monitor] Respiratory 25 H 25 H 20 Rate Blood Pressure 142/79 137/74 137/74 O2 Sat by Pulse 97 100 97 Oximetry 06/16/20 06/16/20 06/16/20 06:51 06:56 06:57 Temperature 98.4 F 99.2 F Pulse Rate 88 88 Pulse Rate [ From Monitor] Respiratory 24 17 Rate Blood Pressure 139/74 131/68 O2 Sat by Pulse 96 97 Oximetry 06/16/20 06/16/20 06/16/20 07:00 07:15 07:30 Temperature Pulse Rate 87 85 89 Pulse Rate [ From Monitor] Respiratory 29 H 21 18 Rate Blood Pressure 158/77 149/76 142/69 O2 Sat by Pulse 100 96 100 Oximetry 06/16/20 06/16/20 06/16/20 07:45 08:00 08:08 Temperature 99.2 F 99.2 F Pulse Rate 90 94 H 89 Pulse Rate [ 89 From Monitor] Respiratory 21 26 H 26 H Rate Blood Pressure 135/69 131/68 131/68 O2 Sat by Pulse 96 97 97 Oximetry 06/16/20 06/16/20 06/16/20 08:18 08:21 08:23 Temperature 99.2 F Pulse Rate 89 92 H 95 H Pulse Rate [ From Monitor] Respiratory 21 21 Rate Blood Pressure 125/66 125/66 117/58 O2 Sat by Pulse 95 93 95 Oximetry 06/16/20 06/16/20 06/16/20 08:31 08:41 08:51 Temperature Pulse Rate 89 85 85 Pulse Rate [ From Monitor] Respiratory 18 25 H 22 Rate Blood Pressure 113/55 113/55 125/64 O2 Sat by Pulse 94 93 95 Oximetry 06/16/20 06/16/20 06/16/20 08:53 09:00 09:11 Temperature 99.8 F H Pulse Rate 86 84 92 H Pulse Rate [ From Monitor] Respiratory 18 22 21 Rate Blood Pressure 123/66 116/62 116/62 O2 Sat by Pulse 95 94 94 Oximetry 06/16/20 06/16/20 06/16/20 09:21 09:31 09:35 Temperature 99.2 F Pulse Rate 87 87 88 Pulse Rate [ From Monitor] Respiratory 20 21 19 Rate Blood Pressure 127/57 123/66 123/66 O2 Sat by Pulse 100 100 94 Oximetry 06/16/20 06/16/20 06/16/20 09:45 09:53 10:00 Temperature 99.4 F Pulse Rate 87 84 90 Pulse Rate [ From Monitor] Respiratory 24 16 29 H Rate Blood Pressure 128/59 128/59 127/66 O2 Sat by Pulse 100 99 100 Oximetry 06/16/20 06/16/20 06/16/20 10:15 10:17 10:31 Temperature 99.4 F Pulse Rate 91 H 90 89 Pulse Rate [ From Monitor] Respiratory 21 21 18 Rate Blood Pressure 121/65 121/65 101/60 O2 Sat by Pulse 100 94 93 Oximetry 06/16/20 06/16/2020 10:45 11:00 11:15 Temperature Pulse Rate 90 85 88 Pulse Rate [ From Monitor] Respiratory 16 19 25 H Rate Blood Pressure 92/64 98/71 94/60 O2 Sat by Pulse 94 95 92 Oximetry 06/16/20 06/16/20 06/16/20 11:30 11:45 12:00 Temperature Pulse Rate 88 89 90 Pulse Rate [ From Monitor] Respiratory 20 22 18 Rate Blood Pressure 96/50 94/56 104/56 O2 Sat by Pulse 93 93 94 Oximetry 06/16/20 06/16/20 06/16/20 12:14 12:15 12:30 Temperature Pulse Rate 89 89 88 Pulse Rate [ From Monitor] Respiratory 20 18 Rate Blood Pressure 87/57 87/57 76/49 O2 Sat by Pulse 94 92 Oximetry 06/16/20 06/16/20 06/16/20 12:45 13:00 13:15 Temperature Pulse Rate 88 93 H 93 H Pulse Rate [ From Monitor] Respiratory 20 19 22 Rate Blood Pressure 83/53 83/56 89/49 O2 Sat by Pulse 92 92 99 Oximetry - Lab 06/16/20 10:41 06/16/20 10:41 Most recent lab results ABG pH 7.201 pH Units (7.350-7.450) L 06/16/20 03:49 ABG pCO2 74.1 mm Hg 06/16/20 03:49 ABG pO2 81.2 mm Hg (80.0-90.0) 06/16/20 03:49 ABG HCO3 28.4 mmol/L (20.0-26.0) H 06/16/20 03:49 ABG O2 Saturation 93.9 % (95.0-99.0) L 06/16/20 03:49 Calcium 7.0 mg/dL (8.4-10.2) L 06/16/20 10:41 Phosphorus 11.70 mg/dL (2.5-4.5) H 06/16/20 10:51 Magnesium 2.30 mg/dL (1.7-2.3) 06/16/20 10:51 Urine Creatinine 161.6 mg/dL (0.1-20.0) H 06/01/20 Unknown Urine Sodium 47 mmol/L 06/01/20 Unknown Medications & Allergies - Medications Allergies/Adverse Reactions: Allergies lisinopril Allergy (Verified 05/31/20 13:03) Angioedema Penicillins Allergy (Verified 05/31/20 13:03) Hives Home Medications: Home Medications Medication Instructions Recorded Confirmed Last Taken Type Acetaminophen [Acetaminophen TAB] 650 mg PO Q4H PRN #30 tablet 02/15/17 Unknown Rx AtorvaSTATin [Lipitor] 20 mg PO QHS tablet 02/15/17 Unknown Rx Cipro/Dexameth 0.3/0.1% [Ciprodex 4 drops AU BID bottle 02/15/17 Unknown Rx OTIC] Detemir (Nf) [Levemir (Nf)] 100 units SUB-Q QHS units 02/15/17 Unknown Rx Dextrose 50% in Water [D50W (25GM) 50 ml IV PRN PRN #30 syringe 02/15/17 Unknown Rx Syringe] Enoxaparin 40 mg SUB-Q QDAY syringe 02/15/17 Unknown Rx Lipase/Protease/Amylase [Pancreaze 1 each FEEDTUBE PRN PRN #30 capsule 02/15/[address] 10,500 Unit] Metoprolol [Lopressor TAB] 25 mg PO BID tablet 02/15/17 Unknown Rx Metoprolol [Lopressor TAB] 25 mg PO BID #60 tablet 02/15/17 Unknown Rx Ondansetron [Zofran INJ] 4 mg IV Q8H PRN #30 vial 02/15/17 Unknown Rx Prednisone [predniSONE 5 mg (6-Day 5 mg PO .TAPER #1 tab.ds.pk 02/15/17 Unknown Rx Pack, 21 Tabs)] Simple Syrup 15 ml FEEDTUBE PRN PRN #30 02/15/17 Unknown Rx oral.liqd Simple Syrup 30 ml FEEDTUBE PRN PRN #30 02/15/17 Unknown Rx oral.liqd Sodium Bicarbonate 325 mg FEEDTUBE PRN PRN #30 tablet 02/15/17 Unknown Rx amLODIPine 10 mg PO DAILY tablet 02/15/17 Unknown Rx amLODIPine [Norvasc] 10 mg PO DAILY #30 tab 02/15/17 Unknown Rx bisacodyL [Dulcolax suppos] 10 mg OK QDAY PRN #30 supp.rect 02/15/17 Unknown Rx chlorproMAZINE [Thorazine] 10 mg PO Q6H PRN #30 tablet 02/15/17 Unknown Rx dexAMETHasone [Decadron] 6 mg IV Q6HR vial 02/15/17 Unknown Rx hydrALAZINE [Apresoline INJ] 10 mg IV Q6HR PRN #30 vial 02/15/17 Unknown Rx oxyCODONE /ACETAMINOPHEN [Percocet 1 tab PO Q4H PRN #30 tablet 02/15/17 Unknown Rx 5/325 mg] oxyCODONE /ACETAMINOPHEN [Percocet 1 tab PO Q4HR #30 tab 02/15/17 Unknown Rx 5/325] tiZANidine [Zanaflex 4mg TAB] 4 mg PO Q8H PRN #30 tablet 02/15/17 Unknown Rx Permethrin 5% [Acticin 5% CREAM] 1 applicatio TP ONCE #1 tube 06/11/17 Unknown Rx Azithromycin [Zithromax Z-BENJIE] 250 mg PO DAILY 1 Days tab 11/23/18 Unknown Rx Ondansetron [Zofran Odt] 4 mg PO Q8HR PRN #14 tab.rapdis 11/23/18 Unknown Rx traMADoL [Ultram 50 MG tab] 50 mg PO Q4HR PRN #14 tablet 11/23/18 Unknown Rx Active Medications: Generic Name Dose Route Start Last Admin Trade Name Freq PRN Reason Stop Dose Admin Acetaminophen 650 mg 05/31/20 15:49 06/15/20 16:34 Tylenol PO 650 mg Q6H PRN Administration Pain MILD(1-3)/Fever >100.5/LEBRON Albuterol 2.5 mg 05/31/20 15:49 Proventil IH Q3HRT PRN Shortness Of Breath Lipase/Protease/Amylase 1 each 06/15/20 10:[address] 10,500 Unit FEEDTUBE PRN PRN For Clogged Feeding Tube Atorvastatin Calcium 20 mg 05/31/20 22:00 06/15/20 22:39 Lipitor PO Not Given QHS CHERI Bisacodyl 10 mg 05/31/20 15:57 Dulcolax OK QDAY PRN Constipation unrelieved by MOM Chlorpromazine HCl 10 mg 05/31/20 15:57 Thorazine PO Q6H PRN Hiccups Dextrose 50 ml 05/31/20 15:59 06/07/20 10:48 D50w (25gm) Syringe IV 20 ml Q30MIN PRN Administration Hypoglycemia Protocol Fentanyl 25 mcg 06/14/20 11:26 06/15/20 13:26 Sublimaze IV 25 mcg Q2H PRN Administration RESPIRATORY DISTRESS Hydrophilic Ointment 1 applic 06/12/20 12:11 Vaseline Lip Therapy TP Q2HR PRN Dry Lips Amiodarone HCl 900 mg/ 500 mls @ 33.333 mls/hr 06/11/20 11:30 06/15/20 20:56 Dextrose IV 0.5 mg/min DIRECT CHERI 16.667 mls/hr Administration Protocol 1 MG/MIN Cefepime HCl 1 gm in 100 mls @ 200 mls/hr 06/14/20 10:00 06/16/20 09:29 Cefepime/Ns 1 Gm/100 Ml IV 200 mls/hr Q24HR CHERI Administration Protocol Sodium Chloride 100 mls @ 999 mls/hr 06/14/20 08:00 Nacl 0.9% IV LINO PRN Hypotension Sodium Chloride 100 mls @ 999 mls/hr 06/15/20 08:14 Nacl 0.9% IV LINO PRN Hypotension Vasopressin 20 unit/ Sodium 100 mls @ 9 mls/hr 06/15/20 18:00 06/16/20 13:16 Chloride IV 0.03 units/min TITR CHERI 9 mls/hr Infusion 0.03 UNITS/MIN Norepinephrine 8 mg/ Sodium 250 mls @ 3.75 mls/hr 06/15/20 18:00 06/16/20 13:15 Chloride IV 18 mcg/min TITR CHERI 33.75 mls/hr Titration Protocol 2 MCG/MIN Sodium Chloride 500 mls @ 0 mls/hr 06/15/20 18:05 06/16/20 07:52 Nacl 0.9% 500 Ml IV 06/16/20 18:04 10 mls/hr ONCE CHERI Administration As Directed Phenylephrine HCl 100 mg/ 100 mls @ 3 mls/hr 06/15/20 18:30 Sodium Chloride IV TITR CHERI Protocol 50 MCG/MIN Sodium Chloride 500 mls @ 10 mls/hr 06/16/20 08:00 Nacl 0.9% 500 Ml IV DIRECT CHERI Insulin Glargine 20 units 06/12/20 22:00 06/15/20 22:38 Lantus SUB-Q 20 units QHS CHERI Administration Insulin Human Lispro 0 unit 06/11/20 12:00 06/16/20 12:24 Humalog SUB-Q 4 unit Q6HR CHERI Administration Protocol Insulin Human Lispro 10 unit 06/12/20 16:30 06/16/20 12:14 Humalog SUB-Q Not Given AC [facility] Methylprednisolone Sodium Succinate 40 mg 06/11/20 14:00 06/16/20 13:10 Solu-Medrol IV 40 mg Q8HR CHERI Administration Metoprolol Tartrate 5 mg 06/09/20 14:52 06/11/20 05:13 Metoprolol IV 5 mg Q6HR PRN Administration Tachyarrhythmias Multi-Ingred Cream/Lotion/Oil/Oint 1 applic 06/12/20 12:11 Artificial Tears Ophth Oint OU Q4HR PRN Dry Eye(s) Naloxone HCl 0.1 mg 05/31/20 15:49 Naloxone IV Q2MIN PRN Res Rate </= 8 or 02 SAT < 92% Ondansetron HCl 4 mg 05/31/20 15:57 Zofran IV Q8H PRN N/V unrelieved by Anna Pantoprazole Sodium 40 mg 06/15/20 10:00 06/16/20 09:26 Protonix IV 40 mg BID CHERI Administration Simple Syrup 15 ml 06/15/20 10:41 Simple Syrup FEEDTUBE PRN PRN Hypoglycemia Simple Syrup 30 ml 06/15/20 10:41 Simple Syrup FEEDTUBE PRN PRN Hypoglycemia Sodium Bicarbonate 325 mg 06/15/20 10:41 Sodium Bicarbonate FEEDTUBE PRN PRN For Clogged Feeding Tube Sodium Chloride 10 ml 05/31/20 22:00 06/16/20 10:10 Sodium Chloride Flush Syringe 10 Ml IV 10 ml BID CHERI Administration Sodium Chloride 10 ml 05/31/20 15:49 Sodium Chloride Flush Syringe 10 Ml IV PRN PRN LINE FLUSH
[2020-06-16] MEDS ORDERED: CALCIUM GLUCONATE 2,000 MG in SODIUM CHLORIDE 0.9% 100 ML IV ONE (13:33)
--- NOTE | 2020-06-16 14:04 | Progress Note ---
Assessment and Plan Cultures: Coronavirus PCR: positive Blood culture: no growth Sputum culture: No growth A/P: 54-year-old male with diabetes, CKD, prior CVA, obesity was admitted to the hospital with complaints of cough, shortness of breath along with fatigue and malaise: #Severe COVID pneumonia: hypoxic, elevated inflammatory markers on admission. Not candidate for Remdesivir due to renal function. #Acute hypoxic respiratory failure: intubated, on the vent. #KEITH on CKD: on HD per nephrology. #S/P Cardiac arrest 06/13/2020 Recs: Continue steroids per pulm. trend ferritin, LDH, d-dimer, CRP every 2-3 days for risk stratification and to assess disease progression prophylactic anticoagulation based on d-dimer Renally dosing cefepime. D5, may need to extend till day 7 due to ongoing pressor use Poor prognosis Nasim Gaitan MD, FACP [facility] ([facility] C: [phone] O: [phone] F: [phone] Subjective Date of service: 06/16/20 Principal diagnosis: COVID-19 PNA, AF RVR Interval history: No fever. Remains on pressors. WBC down. Remains intubated, on the vent. Objective - Exam Narrative Exam: Physical Exam (reviewed in chart due to PPE conservation and minimize risk of transmission) Constitutional: intubated, sedated, on the vent Head, Ears, Nose: normocephalic, atraumatic Eyes: limited due to PPE conservation strategy Neck: intubated Oral: intubated Cardiovascular: limited due to PPE conservation strategy Respiratory: limited due to PPE conservation strategy GI: limited due to PPE conservation strategy Musculoskeletal: limited due to PPE conservation strategy Skin: limited due to PPE conservation strategy Hem/Lymphatic: limited due to PPE conservation strategy Psych: no agitation Neurological: sedated, intubated, on the vent, exam limited - Constitutional Vitals: Vital Signs Temp Pulse Resp BP Pulse Ox 99.4 F 93 H 22 89/49 99 06/16/20 10:17 06/16/20 13:15 06/16/20 13:15 06/16/20 13:15 06/16/20 13:15 Temperature -Last 24 Hours Temperature 99.4 F Temperature 99.4 F Temperature 99.2 F Temperature 99.8 F Temperature 99.8 F Temperature 99.2 F Temperature 99.2 F Temperature 99.2 F Temperature 99.2 F Temperature 98.4 F Temperature 98.1 F Temperature 98 F Temperature 98.6 F Temperature 98.5 F Temperature 98.5 F Temperature 99.3 F Temperature 102.7 F - Labs CBC & Chem 7: 06/16/20 10:41 06/16/20 10:41 Labs: Abnormal lab results 06/15/20 06/15/20 06/15/20 Range/Units 01:44 11:26 12:30 WBC (4.5-11.0) K/mm3 RBC (3.65-5.03) M/mm3 Hgb 8.4 L (11.8-15.2) gm/dl Hct 25.8 L (35.5-45.6) % MCHC (32-34) % Plt Count (140-440) K/mm3 Seg Neuts % (Manual) (40.0-70.0) % Lymphocytes % (Manual) (13.4-35.0) % Nucleated RBC % (0.0-0.9) % Seg Neutrophils # Man (1.8-7.7) K/mm3 Lymphocytes # (Manual) (1.2-5.4) K/mm3 ABG pH (7.350-7.450) pH Units ABG HCO3 (20.0-26.0) mmol/L ABG O2 Saturation (95.0-99.0) % ABG Hemoglobin (14.0-18.0) gm/dl Oxyhemoglobin (95.0-99.0) % Sodium (137-145) mmol/L Potassium (3.6-5.0) mmol/L BUN (9-20) mg/dL Creatinine (0.8-1.3) mg/dL Glucose (75-100) mg/dL POC Glucose 278 H (70-105) Calcium (8.4-10.2) mg/dL Phosphorus (2.5-4.5) mg/dL Crossmatch See Detail 06/15/20 06/16/20 06/16/20 Range/Units 18:02 00:24 03:49 WBC (4.5-11.0) K/mm3 RBC (3.65-5.03) M/mm3 Hgb (11.8-15.2) gm/dl Hct (35.5-45.6) % MCHC (32-34) % Plt Count (140-440) K/mm3 Seg Neuts % (Manual) (40.0-70.0) % Lymphocytes % (Manual) (13.4-35.0) % Nucleated RBC % (0.0-0.9) % Seg Neutrophils # Man (1.8-7.7) K/mm3 Lymphocytes # (Manual) (1.2-5.4) K/mm3 ABG pH 7.201 L (7.350-7.450) pH Units ABG HCO3 28.4 H (20.0-26.0) mmol/L ABG O2 Saturation 93.9 L (95.0-99.0) % ABG Hemoglobin 7.0 L (14.0-18.0) gm/dl Oxyhemoglobin 91.9 L (95.0-99.0) % Sodium (137-145) mmol/L Potassium (3.6-5.0) mmol/L BUN (9-20) mg/dL Creatinine (0.8-1.3) mg/dL Glucose (75-100) mg/dL POC Glucose 250 H 189 H (70-105) Calcium (8.4-10.2) mg/dL Phosphorus (2.5-4.5) mg/dL Crossmatch 06/16/20 06/16/20 06/16/20 Range/Units 06:00 10:41 10:41 WBC 20.6 H (4.5-11.0) K/mm3 RBC 2.95 L (3.65-5.03) M/mm3 Hgb 8.9 L (11.8-15.2) gm/dl Hct 25.6 L (35.5-45.6) % MCHC 35 H (32-34) % Plt Count 136 L (140-440) K/mm3 Seg Neuts % (Manual) 91.5 H (40.0-70.0) % Lymphocytes % (Manual) 5.5 L (13.4-35.0) % Nucleated RBC % 2.5 H (0.0-0.9) % Seg Neutrophils # Man 18.8 H (1.8-7.7) K/mm3 Lymphocytes # (Manual) 1.1 L (1.2-5.4) K/mm3 ABG pH (7.350-7.450) pH Units ABG HCO3 (20.0-26.0) mmol/L ABG O2 Saturation (95.0-99.0) % ABG Hemoglobin (14.0-18.0) gm/dl Oxyhemoglobin (95.0-99.0) % Sodium 146 H D (137-145) mmol/L Potassium 5.7 H D (3.6-5.0) mmol/L BUN 124 H (9-20) mg/dL Creatinine 9.1 H (0.8-1.3) mg/dL Glucose 177 H (75-100) mg/dL POC Glucose 165 H (70-105) Calcium 7.0 L (8.4-10.2) mg/dL Phosphorus (2.5-4.5) mg/dL Crossmatch 06/16/20 Range/Units 10:51 WBC (4.5-11.0) K/mm3 RBC (3.65-5.03) M/mm3 Hgb (11.8-15.2) gm/dl Hct (35.5-45.6) % MCHC (32-34) % Plt Count (140-440) K/mm3 Seg Neuts % (Manual) (40.0-70.0) % Lymphocytes % (Manual) (13.4-35.0) % Nucleated RBC % (0.0-0.9) % Seg Neutrophils # Man (1.8-7.7) K/mm3 Lymphocytes # (Manual) (1.2-5.4) K/mm3 ABG pH (7.350-7.450) pH Units ABG HCO3 (20.0-26.0) mmol/L ABG O2 Saturation (95.0-99.0) % ABG Hemoglobin (14.0-18.0) gm/dl Oxyhemoglobin (95.0-99.0) % Sodium (137-145) mmol/L Potassium (3.6-5.0) mmol/L BUN (9-20) mg/dL Creatinine (0.8-1.3) mg/dL Glucose (75-100) mg/dL POC Glucose (70-105) Calcium (8.4-10.2) mg/dL Phosphorus 11.70 H (2.5-4.5) mg/dL Crossmatch
[2020-06-16 16:04] LABS: Calcium 7.1 mg/dL (8.4-10.2)
[2020-06-16] MEDS: PHENYLEPHRINE 100 MG in SODIUM CHLORIDE 0.9% 90 ML IV SCH (16:54)
[2020-06-16] MEDS ORDERED: SODIUM BICARBONATE 2 MEQ/2 ML SYRINGE IV STA (17:21)
[2020-06-16] MEDS ORDERED: SODIUM BICARB 8.4% 50 MEQ/50 ML SYRINGE IV ONE (17:27)
--- NOTE | 2020-06-16 17:56 | Progress Note ---
Assessment and Plan Assessment and plan: 54 year old male presenting with shortness of breath, with hypoxia on admission, saturation in the low 80s. Here, his chest x-ray showed bilateral infiltrates and COVID-19 test was positive. He was admitted to the hospital. Patient was started on steroids and ID and pulmonology were consulted. 06/02: Continue current management. Patient on high flow. If can tolerate prone recommend prone position during hours of sleep. 06/03: Continue supportive care. Overall prognosis is guarded. Will discuss proceed with obtaining consent for convalescent plasma. Poor prognosis considering COVID-19 and complicated by renal failure. 06/04: Continue current therapy consent obtained for convalescent plasma. Will discuss with laboratory to obtain the plasma. 06/05: Continue supportive care. Poor prognosis. Patient will like to think about plasma therapy and not ready to sign the consent now. 06/06: Patient remains on high flow with hypoxia persistent despite 100%. Still wants to think about the convalescent plasma therapy. Continue current support with pulmonary assistance. Mild improvement in pulmonary status still not a candidate for Remdesivir. Will obtain nephrology consultation to assist in management 06/07. Patient seen on BiPAP today. Nephrology consulted for impaired renal function. 06/08. He agrees to get convalescent plasma. Order placed in chart. Discussed with blood bank. 06/09: Convalescent plasma ordered, poor prognosis, still monitoring renal function, continues on BIPAP. Check markers for COVID19. continue steroids to complete 10 days. 06/10: Continue supportive care, cardiology input noted, will start on cardizem drip, Continue aniticoagulation, Renal function worse, will monitor and discuss with nephrology about possible initiating HD. 06/11/2020 -Patient is on continuous BiPAP. Pulmonary is following. -On amiodarone and IV metoprolol as needed. Cardiology is following. Patient is on anticoagulation. -Nephrology is following. Potassium level is ok 06/12/2020 -Patient's oxygen saturation was 80% despite 100% BiPAP -Pulmonary intubated the patient, currently sedated and on mechanical ventilator -Patient is still in A. fib and heart rate is not controlled, cardiology recommend to continue with amiodarone GTT, if heart rate didn't controlled after intubation will start with Cardizem drip 06/13/2020 -Was coded earlier this morning and was resuscitated successfully according to ACLS protocol -Patient was hypotensive and is on Levophed -ABG was done and pH was 7, on BMP potassium is 8.8, creatinine is 6.4. I put the patient on calcium gluconate, Kayexalate, bicarb drip and discussed with testing machine operator Dr. Lux and he agreed with the plan of care. He said he is going to do dialysis. -Patient prognosis is grave 06/14 -Was coded yesterday morning and was resuscitated successfully according to ACLS protocol -Patient was hypotensive and is on Levophed - 06/13 ABG was done and pH was 7, on BMP potassium is 8.8, creatinine is 6.4. I put the patient on calcium gluconate, Kayexalate, bicarb drip and discussed with testing machine operator Dr. Lux and he agreed with the plan of care. He had dialysis yesterday and K is 4.7, PH is 7.2 -Anoxic encephalopathy; patient was coded -Patient prognosis is grave 06/15 -Patient is intubated, sedated and on mechanical ventilation -Labs and medications were noted -Patient is on IV antibiotics and IV Solu-Medrol -Patient started with dialysis per nephrology 06/16. - He is poorly responsive on vent. BP soft. Problems Acute Hypoxic Respiratory failure Atrial Fibrillation with RVR s/p cardiac arrest 2018 novel sampson virus Pneumonia Bilateral penumonia KEITH WITH VASOMOTOR NEPHROPATHY ON CKD Stage 3 - now on HD HTN DM with hyperglycemia Plan Continue mechanical ventilation On amio for atiral fibrillation Cardiology recs appreciated. HD as per renal ID following. Critical care on board DVT/GI prophy . The high probability of a clinically significant, sudden or life threatening deterioration of the [pulmonary] system(s) required my full and direct attention, intervention and personal management. The aggregate critical care time was [35] minutes. This time is in addition to time spent performing repo rted procedures but includes the following: [x] Data Review and interpretation [x] Patient assessment and monitoring of vital signs [x] Documentation [x] Medication orders and management History Interval history: Patient seen and examined this AM. Sedated on vent. Hospitalist Physical - Constitutional Vitals: Temp Pulse Resp BP Pulse Ox 99.2 F 78 24 63/32 96 06/16/20 12:00 06/16/20 16:00 06/16/20 15:15 06/16/20 16:00 06/16/20 16:00 General appearance: Present: no acute distress, other (Intubated) - Neck Neck: Present: supple - Respiratory Respiratory: bilateral: rales - Cardiovascular Heart Sounds: Present: S1 & S2 - Abdominal General gastrointestinal: soft, non-tender, normal bowel sounds - Neurologic Neurologic: other (Not responsive. ) HEART Score - HEART Score Troponin: Troponin T 0.021 ng/mL (0.00-0.029) 05/31/20 15:23 Results - Labs CBC & Chem 7: 06/16/20 10:41 06/16/20 15:10 Labs: Laboratory Last Values WBC 20.6 K/mm3 (4.5-11.0) H 06/16/20 10:41 RBC 2.95 M/mm3 (3.65-5.03) L 06/16/20 10:41 Hgb 8.9 gm/dl (11.8-15.2) L 06/16/20 10:41 Hct 25.6 % (35.5-45.6) L 06/16/20 10:41 MCV 87 fl (84-94) 06/16/20 10:41 MCH 30 pg (28-32) 06/16/20 10:41 MCHC 35 % (32-34) H 06/16/20 10:41 RDW 14.6 % (13.2-15.2) 06/16/20 10:41 Plt Count 136 K/mm3 (140-440) L 06/16/20 10:41 Lymph % (Auto) 2.4 % (13.4-35.0) L 06/13/20 05:06 Bledsoe % (Auto) 5.3 % (0.0-7.3) 06/13/20 05:06 Eos % (Auto) 0.0 % (0.0-4.3) 06/13/20 05:06 Baso % (Auto) 0.3 % (0.0-1.8) 06/13/20 05:06 Lymph # 0.7 K/mm3 (1.2-5.4) L 06/13/20 05:06 Bledsoe # 1.6 K/mm3 (0.0-0.8) H 06/13/20 05:06 Eos # 0.0 K/mm3 (0.0-0.4) 06/13/20 05:06 Baso # 0.1 K/mm3 (0.0-0.1) 06/13/20 05:06 Add Manual Diff Complete 06/16/20 10:41 Total Counted 200 06/16/20 10:41 Seg Neutrophils % Silviculture Professor 06/16/20 10:41 Seg Neuts % (Manual) 91.5 % (40.0-70.0) H 06/16/20 10:41 Band Neutrophils % 1.5 % 06/16/20 10:41 Lymphocytes % (Manual) 5.5 % (13.4-35.0) L 06/16/20 10:41 Reactive Lymphs % (Man) 0 % 06/16/20 10:41 Monocytes % (Manual) 1.5 % (0.0-7.3) 06/16/20 10:41 Eosinophils % (Manual) 0 % (0.0-4.3) 06/16/20 10:41 Basophils % (Manual) 0 % (0.0-1.8) 06/16/20 10:41 Metamyelocytes % 0 % 06/16/20 10:41 Myelocytes % 0 % 06/16/20 10:41 Promyelocytes % 0 % 06/16/20 10:41 Blast Cells % 0 % 06/16/20 10:41 Nucleated RBC % 2.5 % (0.0-0.9) H 06/16/20 10:41 Seg Neutrophils # 27.9 K/mm3 (1.8-7.7) H 06/13/20 05:06 Seg Neutrophils # Man 18.8 K/mm3 (1.8-7.7) H 06/16/20 10:41 Band Neutrophils # 0.3 K/mm3 06/16/20 10:41 Lymphocytes # (Manual) 1.1 K/mm3 (1.2-5.4) L 06/16/20 10:41 Abs React Lymphs (Man) 0.0 K/mm3 06/16/20 10:41 Monocytes # (Manual) 0.3 K/mm3 (0.0-0.8) 06/16/20 10:41 Eosinophils # (Manual) 0.0 K/mm3 (0.0-0.4) 06/16/20 10:41 Basophils # (Manual) 0.0 K/mm3 (0.0-0.1) 06/16/20 10:41 Metamyelocytes # 0.0 K/mm3 06/16/20 10:41 Myelocytes # 0.0 K/mm3 06/16/20 10:41 Promyelocytes # 0.0 K/mm3 06/16/20 10:41 Blast Cells # 0.0 K/mm3 06/16/20 10:41 WBC Morphology Not Reportable 06/16/20 10:41 Hypersegmented Neuts Not Reportable 06/16/20 10:41 Hyposegmented Neuts Not Reportable 06/16/20 10:41 Hypogranular Neuts Not Reportable 06/16/20 10:41 Smudge Cells Not Reportable 06/16/20 10:41 Toxic Granulation Not Reportable 06/16/20 10:41 Toxic Vacuolation Not Reportable 06/16/20 10:41 Dohle Bodies Not Reportable 06/16/20 10:41 Pelger-Huet Anomaly Not Reportable 06/16/20 10:41 Edwige Rods Not Reportable 06/16/20 10:41 Platelet Estimate Consistent w auto 06/16/20 10:41 Clumped Platelets Not Reportable 06/16/20 10:41 Plt Clumps, EDTA Not Reportable 06/16/20 10:41 Large Platelets Not Reportable 06/16/20 10:41 Giant Platelets Not Reportable 06/16/20 10:41 Platelet Satelliting Not Reportable 06/16/20 10:41 Plt Morphology Comment Not Reportable 06/16/20 10:41 RBC Morphology Not Reportable 06/16/20 10:41 Dimorphic RBCs Not Reportable 06/16/20 10:41 Polychromasia Not Reportable 06/16/20 10:41 Hypochromasia 1+ 06/16/20 10:41 Poikilocytosis Not Reportable 06/16/20 10:41 Anisocytosis 1+ 06/16/20 10:41 Microcytosis Few 06/16/20 10:41 Macrocytosis Not Reportable 06/16/20 10:41 Spherocytes Not Reportable 06/16/20 10:41 Pappenheimer Bodies Not Reportable 06/16/20 10:41 Sickle Cells Not Reportable 06/16/20 10:41 Target Cells Few 06/16/20 10:41 Tear Drop Cells Not Reportable 06/16/20 10:41 Ovalocytes Not Reportable 06/16/20 10:41 Stomatocytes Few 06/16/20 10:41 Helmet Cells Not Reportable 06/16/20 10:41 Sanchez-Duque Bodies Not Reportable 06/16/20 10:41 [place] Rings Not Reportable 06/16/20 10:41 Mary Cells Not Reportable 06/16/20 10:41 Bite Cells Not Reportable 06/16/20 10:41 Crenated Cell Not Reportable 06/16/20 10:41 Elliptocytes Not Reportable 06/16/20 10:41 Acanthocytes (Spur) Not Reportable 06/16/20 10:41 Rouleaux Not Reportable 06/16/20 10:41 Hemoglobin C Crystals Not Reportable 06/16/20 10:41 Schistocytes Not Reportable 06/16/20 10:41 Malaria parasites Not Reportable 06/16/20 10:41 Edinson Bodies Not Reportable 06/16/20 10:41 Hem Pathologist Commnt No 06/16/20 10:41 PT 11.5 Sec. (12.2-14.9) L 05/31/20 15:23 INR 0.83 (0.87-1.13) L 05/31/20 15:23 D-Dimer > 64011 ng/mlDDU (0-234) H 06/09/20 09:21 ABG pH 7.201 pH Units (7.350-7.450) L 06/16/20 03:49 POC ABG pCO2 69.9 mmHg (32.0-48.0) H 06/15/20 10:00 ABG pCO2 74.1 mm Hg 06/16/20 03:49 POC ABG pO2 72.0 mmHg (83-108) L 06/15/20 10:00 ABG pO2 81.2 mm Hg (80.0-90.0) 06/16/20 03:49 POC ABG HCO3 27.6 06/15/20 10:00 ABG HCO3 28.4 mmol/L (20.0-26.0) H 06/16/20 03:49 ABG O2 Saturation 93.9 % (95.0-99.0) L 06/16/20 03:49 ABG O2 Content 9.2 (0.0-44) 06/16/20 03:49 POC ABG Base Excess -1.1 06/15/20 10:00 ABG Base Excess 0.1 mmol/L (-2.0-3.0) 06/16/20 03:49 ABG Hemoglobin 7.0 gm/dl (14.0-18.0) L 06/16/20 03:49 ABG Oxyhemoglobin 92.7 (94-98) L 06/12/20 13:17 ABG Carboxyhemoglobin 1.4 % (0.0-5.0) 06/16/20 03:49 ABG Methemoglobin 0.7 % (0.0-1.5) 06/16/20 03:49 Oxyhemoglobin 91.9 % (95.0-99.0) L 06/16/20 03:49 Carboxyhemoglobin 0.1 (0.5-1.5) L 06/12/20 13:17 FiO2 80 % 06/16/20 03:49 Sodium 142 mmol/L (137-145) 06/16/20 15:10 Potassium 4.8 mmol/L (3.6-5.0) 06/16/20 15:10 Chloride 97.3 mmol/L (98-107) L 06/16/20 15:10 Carbon Dioxide 23 mmol/L (22-30) 06/16/20 15:10 Anion Gap 27 mmol/L 06/16/20 15:10 BUN 131 mg/dL (9-20) H 06/16/20 15:10 Creatinine 9.3 mg/dL (0.8-1.3) H 06/16/20 15:10 Estimated GFR 7 ml/min 06/16/20 15:10 BUN/Creatinine Ratio 14 % 06/16/20 15:10 Glucose 183 mg/dL (75-100) H 06/16/20 15:10 POC Glucose 248 (70-105) H 06/16/20 17:45 Hemoglobin A1c 8.5 % (4-6) H 05/31/20 16:49 Calcium 7.1 mg/dL (8.4-10.2) L 06/16/20 15:10 Phosphorus 11.70 mg/dL (2.5-4.5) H 06/16/20 10:51 Magnesium 2.30 mg/dL (1.7-2.3) 06/16/20 10:51 Ferritin 1045.0 ng/mL (30.0-300.0) H 06/09/20 09:21 Total Bilirubin 0.30 mg/dL (0.1-1.2) 06/13/20 05:06 AST 35 units/L (5-40) 06/13/20 05:06 ALT 37 units/L (7-56) 06/13/20 05:06 Alkaline Phosphatase 115 units/L (35-129) 06/13/20 05:06 Lactate Dehydrogenase 461 units/L (91-180) H 06/09/20 09:21 Total Creatine Kinase 325 units/L (55-170) H 05/31/20 15:23 Troponin T 0.021 ng/mL (0.00-0.029) 05/31/20 15:23 C-Reactive Protein 9.30 mg/dL (0.00-1.30) H 06/09/20 09:21 NT-Pro-B Natriuret Pep 111.3 pg/mL (0-900) 06/01/20 13:41 Serum Total Protein 6.8 g/dL (6.1-8.1) 06/04/20 04:17 Total Protein 6.7 g/dL (6.3-8.2) 06/13/20 05:06 Albumin 2.5 g/dL (3.9-5) L 06/13/20 05:06 Albumin/Globulin Ratio 0.6 % 06/13/20 05:06 Jcmsy-9-Titwzgqnv 0.5 g/dL (0.2-0.3) H 06/04/20 04:17 Wviev-0-Nptkfxnnk 1.6 g/dL (0.5-0.9) H 06/04/20 04:17 Beta Globulins 0.6 g/dL (0.2-0.5) H 06/04/20 04:17 Gamma Globulins 1.2 g/dL (0.8-1.7) 06/04/20 04:17 Abnorm Protein Band 1 see below 06/04/20 04:17 PEP Interpretation see below H 06/04/20 04:17 Triglycerides 268 mg/dL (2-149) H 06/15/20 03:21 Procalcitonin 0.61 ng/mL (<0.15) 06/12/20 05:34 Urine Color Yellow (Yellow) 06/01/20 Unknown Urine Turbidity Clear (Clear) 06/01/20 Unknown Urine pH 5.0 (5.0-7.0) 06/01/20 Unknown Ur Specific [place] 1.018 (1.003-1.030) 06/01/20 Unknown Urine Protein >500 mg/dL (Negative) 06/01/20 Unknown Urine Glucose (UA) >=500 mg/dL (Negative) 06/01/20 Unknown Urine Ketones Tr mg/dL (Negative) 06/01/20 Unknown Urine Blood Mod (Negative) 06/01/20 Unknown Urine Nitrite Neg (Negative) 06/01/20 Unknown Urine Bilirubin Neg (Negative) 06/01/20 Unknown Urine Urobilinogen < 2.0 mg/dL (<2.0) 06/01/20 Unknown Ur Leukocyte Esterase Neg (Negative) 06/01/20 Unknown Urine WBC (Auto) 4.0 /HPF (0.0-6.0) 06/01/20 Unknown Urine RBC (Auto) 9.0 /HPF (0.0-6.0) 06/01/20 Unknown U Epithel Cells (Auto) 1.0 /HPF (0-13.0) 06/01/20 Unknown Urine Mucus Few /HPF 06/01/20 Unknown Urine Eosinophils None seen (None Seen) 06/01/20 Unknown Urine Creatinine 161.6 mg/dL (0.1-20.0) H 06/01/20 Unknown Urine Sodium 47 mmol/L 06/01/20 Unknown FLACO Screen Negative (Negative) 06/03/20 13:17 Proteinase 3 (PR3) Ab <1.0 AI (<1.0) 06/03/20 13:17 Myeloperoxidase Ab <1.0 AI (<1.0) 06/03/20 13:17 Double Strand DNA Ab See scanned result 06/03/20 13:17 Complement C3 223 mg/dL (82-185) H 06/03/20 10:39 Complement C4 64 mg/dL (15-53) H 06/03/20 10:39 Coronavirus (PCR) Positive (Negative) A 06/01/20 Unknown Hepatitis A IgM Ab Non-reactive (NonReactive) 06/03/20 10:39 Hep Bs Antigen Non-reactive (Negative) 06/03/20 10:39 Hep B Core IgM Ab Non-reactive (NonReactive) 06/03/20 10:39 Hepatitis C Antibody Non-reactive (NonReactive) 06/03/20 10:39 Blood Type A POSITIVE 06/15/20 01:44 Antibody Screen Negative 06/15/20 01:44 Crossmatch See Detail 06/15/20 01:44 Hess/IV: Voiding Method Indwelling Catheter IV Catheter Type [Left Femoral VAS Cath ] IV Catheter Type [Right Triple Lumen Cath Femoral] IV Catheter Type [Right Upper INT / Saline Lock arm] IV Catheter Type [Right INT / Saline Lock Antecubital] Active Medications - Current Medications Current Medications: Generic Name Dose Route Start Last Admin Trade Name Freq PRN Reason Stop Dose Admin Acetaminophen 650 mg 05/31/20 15:49 06/15/20 16:34 Tylenol PO 650 mg Q6H PRN Administration Pain MILD(1-3)/Fever >100.5/LEBRON Albuterol 2.5 mg 05/31/20 15:49 Proventil IH Q3HRT PRN Shortness Of Breath Lipase/Protease/Amylase 1 each 06/15/20 10:[address] 10,500 Unit FEEDTUBE PRN PRN For Clogged Feeding Tube Atorvastatin Calcium 20 mg 05/31/20 22:00 06/15/20 22:39 Lipitor PO Not Given QHS CHERI Bisacodyl 10 mg 05/31/20 15:57 Dulcolax MO QDAY PRN Constipation unrelieved by MOM Chlorpromazine HCl 10 mg 05/31/20 15:57 Thorazine PO Q6H PRN Hiccups Dextrose 50 ml 05/31/20 15:59 06/07/20 10:48 D50w (25gm) Syringe IV 20 ml Q30MIN PRN Administration Hypoglycemia Protocol Fentanyl 25 mcg 06/14/20 11:26 06/15/20 13:26 Sublimaze IV 25 mcg Q2H PRN Administration RESPIRATORY DISTRESS Hydrophilic Ointment 1 applic 06/12/20 12:11 Vaseline Lip Therapy TP Q2HR PRN Dry Lips Amiodarone HCl 900 mg/ 500 mls @ 33.333 mls/hr 06/11/20 11:30 06/15/20 20:56 Dextrose IV 0.5 mg/min DIRECT CHERI 16.667 mls/hr Administration Protocol 1 MG/MIN Cefepime HCl 1 gm in 100 mls @ 200 mls/hr 06/14/20 10:00 06/16/20 09:29 Cefepime/Ns 1 Gm/100 Ml IV 200 mls/hr Q24HR CHERI Administration Protocol Sodium Chloride 100 mls @ 999 mls/hr 06/14/20 08:00 Nacl 0.9% IV LINO PRN Hypotension Sodium Chloride 100 mls @ 999 mls/hr 06/15/20 08:14 Nacl 0.9% IV LINO PRN Hypotension Vasopressin 20 unit/ Sodium 100 mls @ 9 mls/hr 06/15/20 18:00 06/16/20 13:16 Chloride IV 0.03 units/min TITR CHERI 9 mls/hr Infusion 0.03 UNITS/MIN Norepinephrine 8 mg/ Sodium 250 mls @ 3.75 mls/hr 06/15/20 18:00 06/16/20 17:45 Chloride IV 28 mcg/min TITR CHERI 52.5 mls/hr Titration Protocol 2 MCG/MIN Sodium Chloride 500 mls @ 0 mls/hr 06/15/20 18:05 06/16/20 07:52 Nacl 0.9% 500 Ml IV 06/16/20 18:04 10 mls/hr ONCE CHERI Administration As Directed Phenylephrine HCl 100 mg/ 100 mls @ 3 mls/hr 06/15/20 18:30 06/16/20 17:45 Sodium Chloride IV 100 mcg/min TITR CHERI 6 mls/hr Titration Protocol 50 MCG/MIN Sodium Chloride 500 mls @ 10 mls/hr 06/16/20 08:00 Nacl 0.9% 500 Ml IV DIRECT CHERI Insulin Glargine 20 units 06/12/20 22:00 06/15/20 22:38 Lantus SUB-Q 20 units QHS CHERI Administration Insulin Human Lispro 0 unit 06/11/20 12:00 06/16/20 17:43 Humalog SUB-Q 4 unit Q6HR CHERI Administration Protocol Insulin Human Lispro 10 unit 06/12/20 16:30 06/16/20 17:24 Humalog SUB-Q Not Given [facility] Methylprednisolone Sodium Succinate 40 mg 06/11/20 14:00 06/16/20 13:10 Solu-Medrol IV 40 mg Q8HR CHERI Administration Metoprolol Tartrate 5 mg 06/09/20 14:52 06/11/20 05:13 Metoprolol IV 5 mg Q6HR PRN Administration Tachyarrhythmias Multi-Ingred Cream/Lotion/Oil/Oint 1 applic 06/12/20 12:11 Artificial Tears Ophth Oint OU Q4HR PRN Dry Eye(s) Naloxone HCl 0.1 mg 05/31/20 15:49 Naloxone IV Q2MIN PRN Res Rate </= 8 or 02 SAT < 92% Ondansetron HCl 4 mg 05/31/20 15:57 Zofran IV Q8H PRN N/V unrelieved by Anna Pantoprazole Sodium 40 mg 06/15/20 10:00 06/16/20 09:26 Protonix IV 40 mg BID CHERI Administration Simple Syrup 15 ml 06/15/20 10:41 Simple Syrup FEEDTUBE PRN PRN Hypoglycemia Simple Syrup 30 ml 06/15/20 10:41 Simple Syrup FEEDTUBE PRN PRN Hypoglycemia Sodium Bicarbonate 325 mg 06/15/20 10:41 Sodium Bicarbonate FEEDTUBE PRN PRN For Clogged Feeding Tube Sodium Chloride 10 ml 05/31/20 22:00 06/16/20 10:10 Sodium Chloride Flush Syringe 10 Ml IV 10 ml BID CHERI Administration Sodium Chloride 10 ml 05/31/20 15:49 Sodium Chloride Flush Syringe 10 Ml IV PRN PRN LINE FLUSH Nutrition/Malnutrition Assess - Dietary Evaluation Nutrition/Malnutrition Findings: Nutrition Notes Start: 06/01/20 10:42 Freq: Status: Active Protocol: Document 06/15/20 10:26 NYASIA (Rec: 06/15/20 10:41 [email or web address] [email or web address]) Nutrition Notes Need for Assessment generated from: MD Order Initial or Follow up Reassessment Current Diagnosis Acute Kidney Injury,CKD(stage I-IV),Diabetes,Hypertension, Respiratory Failure Other Pertinent Diagnosis Bilat pneu, COVID-19 (+), afib with RVR Current Diet No diet ordered Labs/Tests BUN 96 Cr 6.4 BG 234 Pertinent Medications Amiodarone gtt, Solumedrol, Levophed gtt Height 5 ft 9 in Weight 113 kg [place] Body Weight (kg) 72.72 BMI 36.8 Weight Status Obese Subjective/Other Information RD consulted for TF. Pt remains on vent support and HD . Burn Absent Trauma Absent #2 Nutrition Diagnosis Inadequate oral intake Diagnosis Progress(for reassessment Continues documentation) #1 Nutrition Diagnosis Altered nutrition-related laboratory values As Evidenced by Signs and Symptoms POC glucose remains >200 Diagnosis Progress(for reassessment Continues documentation) Is patient on ventilator? Yes Is Patient Ambulatory and/or Out of Bed No REE-([facility]-confined to bed) [phone] Additional Notes Pro needs 2g/kg IBW: 145g/day Fluid needs 1-1.5L/day Nutrition Intervention Nutrition Support: Nepro at 40ml/hr with 150ml water flush q4h. Kcal 1,728 Protein (gm) 78 Carbohydrates (gm) 155 Fluid (mL) 698 Fiber (gm) 12 Goal #1 TF tolerance Goal #2 TF (at goal rate) to meet nutrient needs as best possible Goal #3 Improved BG control Follow-Up By: 06/17/20 Additional Comments F/U: new TF, vent status
[2020-06-16] MEDS: INSULIN GLARGINE 100 UNITS/ML SUB-Q SCH (21:22)
[2020-06-16] MEDS ORDERED: EPINEPHrine 1 MG/1 ML 8 MG in SODIUM CHLORIDE 0.9% 250ML 242 ML IV SCH (23:45)
[2020-06-17] MEDS ORDERED: SODIUM BICARB 8.4% 50 MEQ/50 ML SYRINGE IV ONE
[2020-06-17] MEDS ORDERED: ATROPINE 0.1% (1 MG/10 ML) CARDIAC SYRINGE ONE
[2020-06-17] MEDS ORDERED: DOPamine/D5W 800 MG/250 ML DRIP IV ONE
[2020-06-17] MEDS: AMIODARONE 900 MG in DEXTROSE 5% IN WATER 482 ML IV SCH (00:20)
[2020-06-17] MEDS: NORepinephrine 8 MG in SODIUM CHLORIDE 0.9% 250ML 242 ML IV SCH (00:21)
[2020-06-17] MEDS: PHENYLEPHRINE 100 MG in SODIUM CHLORIDE 0.9% 90 ML IV SCH (00:28)
[2020-06-17] MEDS: INSULIN LISPRO 100 UNIT/ML VIAL 3 mL SUB-Q SCH (00:28)
--- NOTE | 2020-06-17 00:28 | Event Note ---
Date: 06/17/20 VIN HERR called on 54-year-old -[place] male who has been on admission for bilateral pneumonia, acute hypoxic respiratory failure, COVID-19 infection. Resuscitative measures were commenced according to ACLS protocol. Patient had 3 rounds of epinephrine and 1 amp of sodium bicarb. There was spontaneous return of circulation. We will continue patient on current management. Family to be informed of patient's change in status. We will continue to monitor patient closely in the intensive care unit.
[2020-06-17] MEDS ORDERED: DOPamine/D5W 800 MG/250 ML 800 MG/250 ML BAG IV SCH (01:00)
[2020-06-17 01:13] VITALS: BP 80/43
[2020-06-17] MEDS ORDERED: EPINEPHrine 1 MG/10 ML SYRINGE ONE ×2 (01:40)
--- NOTE | 2020-06-17 03:14 | Event Note ---
Date: 06/17/20 VIN HERR called again on 54-year-old -Citizen Of [place] male who has been on admission for bilateral pneumonia, acute hypoxic respiratory failure, COVID-19 infection. Resuscitative measures were commenced according to ACLS protocol. All resuscitative measures were unsuccessful. On Exam: No response to verbal or tactile stimuli Chest: to breatn sounds CVS: no heart sounds, no peripheral pulses Abdomen: distended Extremities: cold and clammy MEDICAL OFFICE MANAGER: No reflexes Patient confirmed on 06/2020 at 01:50AM called and informed. Condolences offered.
[2020-06-17 04:21] LABS: Calcium 7.4 mg/dL (8.4-10.2)
--- NOTE | 2020-06-17 07:07 | Ultrasound Report ---
RENAL ULTRASOUND HISTORY: Renal failure. FINDINGS: Kidneys nonvisualized. The bladder is decompressed by Hess catheter. Negative for pelvic mass or fluid collection. IMPRESSION: Kidneys nonvisualized. Signer Name: Pablo Godinez MD Signed: 06/17/2020 7:03 AM Workstation Name: [id number]
--- NOTE | 2020-06-17 15:22 | Death Summary ---
Summary - Providers Consults: 05/31/20 15:49 Consult to Dietitian/Nutrition [CONS] Routine Physician Instructions: Reason For Exam: Reason for Consult: Diet education Consult to Physician [CONS] Routine Comment: Consulting Provider: GABBY VIDAL Physician Instructions: Reason For Exam: Hypoxic Respirtory failure 05/31/20 15:54 Consult to Physician [CONS] Routine Comment: Consulting Provider: JAYME HENRIQUEZ Physician Instructions: Reason For Exam: pneumonia 06/09/20 13:42 Consult to Physician [CONS] Routine Comment: Consulting Provider: NAKUL DELGADO Physician Instructions: Reason For Exam: AFIB WITH RVR 06/12/20 12:11 Consult to Dietitian/Nutrition [CONS] Routine Physician Instructions: Reason For Exam: Reason for Consult: Evaluate nutritional intake 06/13/20 09:06 Consult to Interventional Radiology [CONS] Stat Consulting Provider: GONZALO LANDA Reason For Exam: hemodialysis catheter placement. Notified:: 06/14/20 13:24 Consult to Dietitian/Nutrition [CONS] Routine Physician Instructions: Reason For Exam: Reason for Consult: Write/Manage Tube Feeding Attending: DERRICK IQBAL - summary Date of admission: 05/31/20 15:42 Date of : 06/17/20 Reason for admission: Respiratory failure Procedures/treatments rendered: 54 year old male presenting with shortness of breath, with hypoxia on admission, saturation in the low 80s. Here, his chest x-ray showed bilateral infiltrates and COVID-19 test was positive. He was admitted to the hospital. Patient was started on steroids and ID and pulmonology were consulted. 06/02: Continue current management. Patient on high flow. If can tolerate prone recommend prone position during hours of sleep. 06/03: Continue supportive care. Overall prognosis is guarded. Will discuss proceed with obtaining consent for convalescent plasma. Poor prognosis considering COVID-19 and complicated by renal failure. 06/04: Continue current therapy consent obtained for convalescent plasma. Will discuss with laboratory to obtain the plasma. 06/05: Continue supportive care. Poor prognosis. Patient will like to think about plasma therapy and not ready to sign the consent now. 06/06: Patient remains on high flow with hypoxia persistent despite 100%. Still wants to think about the convalescent plasma therapy. Continue current support with pulmonary assistance. Mild improvement in pulmonary status still not a candidate for Remdesivir. Will obtain nephrology consultation to assist in management 06/07. Patient seen on BiPAP today. Nephrology consulted for impaired renal function. 06/08. He agrees to get convalescent plasma. Order placed in chart. Discussed with blood bank. 06/09: Convalescent plasma ordered, poor prognosis, still monitoring renal function, continues on BIPAP. Check markers for COVID19. continue steroids to complete 10 days. 06/10: Continue supportive care, cardiology input noted, will start on cardizem drip, Continue aniticoagulation, Renal function worse, will monitor and discuss with nephrology about possible initiating HD. 06/11/2020 -Patient is on continuous BiPAP. Pulmonary is following. -On amiodarone and IV metoprolol as needed. Cardiology is following. Patient is on anticoagulation. -Nephrology is following. Potassium level is ok 06/12/2020 -Patient's oxygen saturation was 80% despite 100% BiPAP -Pulmonary intubated the patient, currently sedated and on mechanical ventilator -Patient is still in A. fib and heart rate is not controlled, cardiology recommend to continue with amiodarone GTT, if heart rate didn't controlled after intubation will start with Cardizem drip 06/13/2020 -Was coded earlier this morning and was resuscitated successfully according to ACLS protocol -Patient was hypotensive and is on Levophed -ABG was done and pH was 7, on BMP potassium is 8.8, creatinine is 6.4. I put the patient on calcium gluconate, Kayexalate, bicarb drip and discussed with nep hrologist Dr. Lux and he agreed with the plan of care. He said he is going to do dialysis. -Patient prognosis is grave 06/14 -Was coded yesterday morning and was resuscitated successfully according to ACLS protocol -Patient was hypotensive and is on Levophed - 06/13 ABG was done and pH was 7, on BMP potassium is 8.8, creatinine is 6.4. I put the patient on calcium gluconate, Kayexalate, bicarb drip and discussed with surveillance officer Dr. Lux and he agreed with the plan of care. He had dialysis yesterday and K is 4.7, PH is 7.2 -Anoxic encephalopathy; patient was coded -Patient prognosis is grave 06/15 -Patient is intubated, sedated and on mechanical ventilation -Labs and medications were noted -Patient is on IV antibiotics and IV Solu-Medrol -Patient started with dialysis per nephrology 06/16. - Poorly responsive on vent. 06/17. Jack martins called early am and ACLS was initiated with ROSC however he had a cardiac arrest few hours later and no ROSC could be obtained despite the ACLS protocol. He was pronounced at 01:50AM by the hospitalist desktop support consultant. Family was notified by the night team - Final diagnosis (1) Acute kidney injury superimposed on CKD Note: Final diagnosis: (2) Acute renal failure Note: Final diagnosis: (3) Acute respiratory failure with hypoxia Note: Final diagnosis: (4) Paroxysmal atrial fibrillation with RVR Note: Final diagnosis: (5) Pneumonia due to COVID-19 virus Note: Final diagnosis: (6) HTN (hypertension) Qualifiers: Hypertension type: essential hypertension Qualified Code(s): I10 - Essential (primary) hypertension Note: Final diagnosis:
== END 2020-06-17 03:20 | DRG 207 ==
LOC: ED 12:59 → IMCU 15:42 → CC1 06-10 16:39
PROVIDERS: ADMIT Internal Medicine; ATTEND Internal Medicine
PROC: 4A033R1 Measurement of Arterial Saturation, Peripheral, Percutaneous Approach (ICD-10-PCS; principal; 2020-06-02)
PROC: 5A09357 Assistance with Respiratory Ventilation, Less than 24 Consecutive Hours, Continuous Positive Airway Pressure (ICD-10-PCS; 2020-06-04)
PROC: XW13325 Transfusion of Convalescent Plasma (Nonautologous) into Peripheral Vein, Percutaneous Approach, New Technology Group 5 (ICD-10-PCS; 2020-06-04)
PROC: 5A09357 Assistance with Respiratory Ventilation, Less than 24 Consecutive Hours, Continuous Positive Airway Pressure (ICD-10-PCS; 2020-06-05)
PROC: 5A09357 Assistance with Respiratory Ventilation, Less than 24 Consecutive Hours, Continuous Positive Airway Pressure (ICD-10-PCS; 2020-06-06)
PROC: 5A09357 Assistance with Respiratory Ventilation, Less than 24 Consecutive Hours, Continuous Positive Airway Pressure (ICD-10-PCS; 2020-06-07)
PROC: 5A09357 Assistance with Respiratory Ventilation, Less than 24 Consecutive Hours, Continuous Positive Airway Pressure (ICD-10-PCS; 2020-06-08)
PROC: 5A09357 Assistance with Respiratory Ventilation, Less than 24 Consecutive Hours, Continuous Positive Airway Pressure (ICD-10-PCS; 2020-06-09)
PROC: 5A09357 Assistance with Respiratory Ventilation, Less than 24 Consecutive Hours, Continuous Positive Airway Pressure (ICD-10-PCS; 2020-06-10)
PROC: 5A1955Z Respiratory Ventilation, Greater than 96 Consecutive Hours (ICD-10-PCS; 2020-06-12)
PROC: 5A1D70Z Performance of Urinary Filtration, Intermittent, Less than 6 Hours Per Day (ICD-10-PCS; 2020-06-12)
PROC: 0BH17EZ Insertion of Endotracheal Airway into Trachea, Via Natural or Artificial Opening (ICD-10-PCS; 2020-06-12)
PROC: 5A1D70Z Performance of Urinary Filtration, Intermittent, Less than 6 Hours Per Day (ICD-10-PCS; 2020-06-13)
PROC: 06HY33Z Insertion of Infusion Device into Lower Vein, Percutaneous Approach (ICD-10-PCS; 2020-06-13)
PROC: B54CZZZ Ultrasonography of Left Lower Extremity Veins (ICD-10-PCS; 2020-06-13)
PROC: 5A1D70Z Performance of Urinary Filtration, Intermittent, Less than 6 Hours Per Day (ICD-10-PCS; 2020-06-14)
DX: U07.1 COVID-19 (principal); J96.01 Acute respiratory failure with hypoxia; J12.89 Other viral pneumonia; N17.0 Acute kidney failure with tubular necrosis; E87.2 Acidosis; E11.22 Type 2 diabetes mellitus with diabetic chronic kidney disease; E66.9 Obesity, unspecified; E11.65 Type 2 diabetes mellitus with hyperglycemia; E78.5 Hyperlipidemia, unspecified; E87.5 Hyperkalemia; D72.829 Elevated white blood cell count, unspecified; I48.0 Paroxysmal atrial fibrillation; I46.9 Cardiac arrest, cause unspecified; M47.812 Spondylosis without myelopathy or radiculopathy, cervical region; I12.9 Hypertensive chronic kidney disease with stage 1 through stage 4 chronic kidney disease, or unspecified chronic kidney disease; N18.3 Chronic kidney disease, stage 3 (moderate); M54.12 Radiculopathy, cervical region; Z88.0 Allergy status to penicillin; Z68.36 Body mass index [BMI] 36.0-36.9, adult; Z86.73 Personal history of transient ischemic attack (TIA), and cerebral infarction without residual deficits; Z79.4 Long term (current) use of insulin
CPT/HCPCS: 36415; 36600; 71045; 74018; 76770; 76857; 80048; 80053; 80074; 81001; 82550; 82570; 82728; 82803; 82805; 82947; 82962; 83036; 83615; 83735; 83880; 84100; 84132; 84145; 84165; 84300; 84478; 84484; 85007; 85014; 85018; 85025; 85027; 85379; 85610; 86021; 86038; 86140; 86160; 86225; 86850; 86900; 86901; 86920; 87040; 87205; 89050; 92950; 93005; 94002; 94003; 94660; 94760; G0378; A9270-GY; C9113; J0171; J0282; J0456; J0461; J0610; J0692; J0696; J1100; J1265; J1650; J1815; J1940; J2001; J2060; J2250; J2370; J2704; J2920; J3010; J3370; J7030; J7040; J7050; J7060; J7070; J7120; J8540; P9016; P9017; Q0161; U0003-CS